=== PATIENT | male | born 1950 | race Caucasian/White ===

== ENCOUNTER → 2016-07-04 | Outpatient (CLI) | payer OTHER ==
[~2016-07-04] MED LIST: ACET325T96 PO; BISA10SU3 PR; CLC100X PO; CLOP1TAB5 PO; DICL1GEL28 TOP; DIVA125C PO; DIVA125C8 PO; GABA-113 PO; HALO100I IM; HALO2TAB PO; HALO5INJ IM; HLD1X PO; HYDR-4330 PO; INSDGIPEN SC; KFL250 PO; LEVE750T PO; LIDO4CRE10 TOP; LIDO5DIS10 TOP; LORA-741 PO; MELO15TA10 PO; MOML PO; NVLGI/PEN SQ; QUET-115 PO; QUET1TAB34 PO; RISP0.5T10 PO; SIMV10TA5 PO; SODIENE PR; VENL150C PO
[2016-07-04 08:23] LABS: BASO % 0.6 %; BASO ABS # 0.04 K/uL (0-0.2); COMPLETE YES; EOS % 2.8 %; HEMATOCRIT 34.9 % (42-52); IG% 0.5 %; LYMPH % 38.9 %; LYMPH ABS # 2.51 K/uL (1.2-3.4); MEAN CELL VOLUME 84.1 fL (80-100); MEAN CORPUSCULAR HEMOGLOBIN 28.2 pg (25-34); MEAN CORPUSCULAR HGB CONC 33.5 g/dl (32-36); MEAN PLATELET VOLUME 9.7 fL (7.4-10.4); MONO % 8.7 %; NEUT % 48.5 %; PLATELET COUNT 250 K/uL (130-400); RED BLOOD COUNT 4.15 M/uL (4.7-6.1); WHITE BLOOD COUNT 6.46 K/uL (4.8-10.8)
[2016-07-04 08:34] LABS: ALT/SGPT 18 U/L (12-78); BLOOD UREA NITROGEN 20 mg/dl (7-18); BUN/CREATININE RATIO 19.9 (10-20); CALCIUM 8.7 mg/dl (8.5-10.1); CARBON DIOXIDE 24 mmol/L (21-32); CHLORIDE 106 mmol/L (98-107); GLUCOSE 159 mg/dl (70-99); POTASSIUM 3.9 mmol/L (3.5-5.1); SODIUM 141 mmol/L (136-145)
[2016-07-04 08:37] LABS: ALKALINE PHOSPHATASE 79 U/L (45-117); AST/SGOT 9 U/L (15-37)
[2016-07-04 09:53] LABS: ESTIMATED AVERAGE GLUCOSE 163 mg/dl; HA1C FLAG Normal (Normal)
== END ==
LOC: C.LABUPHEI 08:00
PROVIDERS: ATTEND Family Medicine
DX: E11.9 Type 2 diabetes mellitus without complications (principal); M62.81 Muscle weakness (generalized)

== ENCOUNTER 2016-07-19 19:12 | Inpatient (IN) | payer OTHER ==
[~2016-07-19] VITALS: Ht 182.9 cm; Wt 78.7 kg
[~2016-07-19 19:12] MED LIST changes: -DIVA125C8 PO; -GABA-113 PO; -INSDGIPEN SC; -KFL250 PO; -LIDO4CRE10 TOP; -NVLGI/PEN SQ; -QUET-115 PO; -RISP0.5T10 PO; +[UNRECOGNIZED DRUG - CODE] PO
[2016-07-19] MEDS ORDERED: SODIUM CHLORIDE 0.9% 1000ML 1,000 ML IV STA ×2 (19:42→20:31)
[2016-07-19] MEDS ORDERED: SODIUM CHLORIDE 0.9% 500ML 500 ML IV STA (19:42)
[2016-07-19 20:02] LABS: HEMATOCRIT 15.9 % (42-52); MEAN CELL VOLUME 88.3 fL (80-100); MEAN CORPUSCULAR HEMOGLOBIN 28.3 pg (25-34); MEAN CORPUSCULAR HGB CONC 32.1 g/dl (32-36); MEAN PLATELET VOLUME 9.9 fL (7.4-10.4); PLATELET COUNT 214 K/uL (130-400); WHITE BLOOD COUNT 17.88 K/uL (4.8-10.8)
--- NOTE | 2016-07-19 20:11 | DIAGNOSTIC IMAGING REPORT ---
CHEST ONE VIEW PORTABLE CLINICAL HISTORY: Altered mental status. COMPARISON STUDY: Chest radiograph April 07, 2015. FINDINGS: Lung volumes are diminished. This is similar to prior exam. Mild left basilar opacity was present on prior exams and suggests atelectasis. There is no consolidation to suggest pneumonia and there is no evidence of pulmonary edema. Cardiomegaly is unchanged. IMPRESSION: 1. No acute findings. 2. Diminished lung volumes with suspected left basilar atelectasis. 3. Stable cardiomegaly. Electronically signed by: Tee Eddy M.D. 07/19/2016 8:09 PM Dictated Date/Time: 07/19/2016 8:06 PM
[2016-07-19 20:23] LABS: BASO % 0.1 %; BASO ABS # 0.02 K/uL (0-0.2); COMPLETE YES; LYMPH % 20.3 %; LYMPH ABS # 3.63 K/uL (1.2-3.4); MONO % 7.4 %; NEUT % 71.2 %; POLYCHROMASIA 2+
[2016-07-19 20:26] LABS: ALB/GLOB RATIO 1.1 (0.9-2); BUN/CREATININE RATIO 45.7 (10-20); CREATININE 2.6 mg/dl (0.60-1.40); POTASSIUM 4.8 mmol/L (3.5-5.1); THYROID STIMULATING HORMONE 1.73 uIu/ml (0.300-4.500)
[2016-07-19] MEDS ORDERED: PIPERACILLIN/TAZOBACTAM 4.5 GM/100ML D5W IV STA (20:32)
[2016-07-19] MEDS ORDERED: DAPTOmycin IV 500 MG in SODIUM CHLORIDE 0.9% 50ML 50 ML IV STA (20:32)
[2016-07-19 20:38] LABS: BETA-HYDROXYBUTYRATE 1.55 mg/dL (0.2-2.81)
[2016-07-19 20:53] LABS: INR 1.1 (0.9-1.1); PARTIAL THROMBOPLASTIN RATIO 0.7
[2016-07-19] MEDS ORDERED: SEVERE STRESS LEVEL ONE (21:00)
[2016-07-19] MEDS ORDERED: INSULIN IV INFUSION PROTOCOL STA (21:00)
[2016-07-19] MEDS ORDERED: INSULIN ASPART 100 UNITS/ML 3 ML PEN SC SCH (21:00)
[2016-07-19] MEDS ORDERED: HHS GOAL RANGE 250-350 mg/dl ONE (21:00)
[2016-07-19] MEDS ORDERED: INSULIN REGULAR 250 UNITS in SODIUM CHLORIDE 0.9% 250ML 250 ML IV STA (21:21)
[2016-07-19] MEDS ORDERED: INSULIN HUMAN REGULAR IV BOLUS 3 UNIT in SYRINGE 0 ML IV SCH (21:30)
[2016-07-19] MEDS ORDERED: GLUCOSE 40% GEL 15 GM TUBE PO PRN (21:30)
[2016-07-19] MEDS ORDERED: GLUCOSE 10 TABS/TUBE PO PRN (21:30)
[2016-07-19] MEDS ORDERED: GLUCAGON FOR INJ 1 MG VIAL SQ PRN (21:30)
[2016-07-19] MEDS ORDERED: DEXTROSE 50% 50 ML SYR IV PRN (21:30)
[2016-07-19 22:10] VITALS: BP 121/77; PULSE 103; TEMP 36.7; O2SAT 100
[2016-07-19 22:15] VITALS: BP 126/76; PULSE 103; O2SAT 100
[2016-07-19 22:20] LABS: URINE APPEARANCE CLEAR (CLEAR); URINE BILIRUBIN NEG (NEG); URINE COLOR YELLOW; URINE EPITHELIAL CELL AUTO >30 /lpf (0-5); URINE NITRITE NEG (NEG); URINE SPECIFIC GRAVITY 1.017 (1.000-1.030); UROBILINOGEN NEG (NEG); ZZUR CULT IF INDIC CLEAN CATCH YES
[2016-07-19 22:24] LABS: MANUAL MICROSCOPIC REQUIRED? NO; REVIEW REQ? YES
[2016-07-19 22:25] VITALS: BP 116/68; PULSE 97; TEMP 36.7; O2SAT 100
[2016-07-19] MEDS ORDERED: RISP0.5T10 PO (22:43)
[2016-07-19] MEDS ORDERED: GABA-113 PO (22:43)
[2016-07-19] MEDS ORDERED: LIDO4CRE10 TOP (22:43)
[2016-07-19] MEDS ORDERED: INSDGIPEN SC (22:43)
[2016-07-19 22:45] VITALS: BP 119/90; PULSE 98; TEMP 36.9; O2SAT 100
[2016-07-19] MEDS ORDERED: NVLGI/PEN SQ (22:47)
[2016-07-19 22:49] LABS: BENZODIAZEPINE, URINE NEG (NEG); COCAINE,URINE NEG (NEG); PHENCYCLIDINE, URINE NEG (NEG)
[2016-07-19] MEDS ORDERED: ONDANSETRON INJ 2 MG/ML 2 ML VIAL IV PRN (23:15)
--- NOTE | 2016-07-19 23:19 | History and Physical ---
History & Physical Date & Time of Service: Jul 19, 2016 at 23:17 Chief Complaint: [facility] Primary Care Physician: Dillan Samuels History of Present Illness Source: patient Mr Errol Hinojosa is a 65 yo M with multiple chronic conditions, including schizoaffective disorder, depression, GERD, coronary artery disease, and previous stroke, who presents from the [facility] with altered mental status. He was found to have a blood sugar of 565 today at 1807. He was also found to by hypoxic at 87% on room air, and his blood pressure was found to be in the 70s. His sugar improved to 443 after 15 units of Novolog. He was brought to the ED for further evaluation. In the ED, he received a fluid bolus of 1500mL total, and a dose of Zosyn and Daptomycin. He was started on an insulin drip, and his most recent sugar is 344 at 23:28. He was found to have a hemoglobin of 5.1 and has been started on a unit of blood transfusion. He has a POLST form in records that says he is a DNR, with limited additional measures. His POA is Marcie Mclean who apparently was a nurse that used to take care of him, not a family member, and the patients brother was a previous POA but an issue arose, and Marcie became the POA. She was contacted by nursing staff earlier for consent for blood transfusion but reported she does not know much about his recent history. Currently, his eyes open when his name is called and he will grunt occasionally. He is otherwise non-verbal. Past Medical/Surgical History Medical Problems: (1) Coronary artery disease Status: Chronic (2) Depression Status: Chronic (3) Diabetes Status: Chronic (4) GERD (gastroesophageal reflux disease) Status: Chronic (5) Gout Status: Chronic (6) Hyperlipidemia Status: Chronic (7) Schizoaffective disorder, chronic condition Status: Chronic (8) Stroke Status: Resolved Family History Patient reports no known family medical history. Social History Smoking Status: Unknown if Ever Smoked Drug Use: none Marital Status: Housing status: intermediate Occupational Status: retired Allergies Coded Allergies: No Known Allergies (Unverified , 07/19/16) Home Medications Scheduled Acetaminophen Tab (Tylenol), 650 MG PO Q8 Clopidogrel Bisulfate (Plavix), 75 MG PO DAILY Diclofenac Sod (Voltaren 1% Top Gel), 2 GM TOP TID Divalproex Sodium (Depakote Sprinkles), 125 MG PO TID Docusate Sodium (Docusate Sodium), 100 MG PO BID Gabapentin (Neurontin), 300 MG PO HS Haloperidol Decanoate (Haldol Decanoate 100), 25 MG IM MONTHLY Insulin Aspart (Novolog Flexpen), 1 DOSE SQ SLIDING SCALE Insulin Glargine (Lantus Solostar), 10 UNITS SC HS Levetiracetam (Keppra), 750 MG PO BID Lidocaine (Anorectal) (Lidocaine), 1 DOSE TOP DAILY Meloxicam (Mobic), 15 MG PO DAILY Quetiapine Fumarate (Seroquel), 150 MG PO TID Risperidone (Risperdal), 0.5 MG PO Q12 Simvastatin (Zocor), 10 MG PO HS Venlafaxine Hcl (Effexor Xr), 150 MG PO DAILY Scheduled PRN Bisacodyl (Dulcolax), 1 SUPP RI UD PRN for NO BM X 4 DAYS Haloperidol (Haloperidol), 2 MG PO Q6 PRN for YELLING,COMBATIVE,ETC Haloperidol Lactate (Haldol), 2 MG IM Q12 PRN for Agitation Hydrocodone-Acetaminophen (Lortab 5-325 mg), 1 TAB PO Q8 PRN for Pain Magnesium Hydroxide (Milk Of Magnesia), 30 ML PO UD PRN for NO BM X 9 SHIFTS Sodium Phosphate/Biphosphate (Fleet Enema), 1 EA RI UD PRN for NO RESULT FROM SUPPOSITORY Review of Systems A 10 point ROS was unable to be completed due to patients mental status. Physical Exam Vital Signs Date Time Temp Pulse Resp B/P Pulse Ox O2 Delivery O2 Flow Rate FiO2 07/19/16 22:45 36.9 98 20 119/90 100 3.0 07/19/16 22:35 96 07/19/16 22:25 36.7 97 21 116/68 100 3.0 07/19/16 22:15 103 22 126/76 100 3.0 07/19/16 22:10 36.7 103 28 121/77 100 3.0 07/19/16 21:30 95 22 121/75 07/19/16 20:30 100 20 105/74 97 Nasal Cannula 3.0 07/19/16 20:00 37.3 103 20 107/70 99 Nasal Cannula 3.0 07/19/16 19:45 103 20 96/67 100 Nasal Cannula 4.0 07/19/16 19:30 100 Nasal Cannula 4.0 07/19/16 19:30 103 20 113/69 Nasal Cannula 4.0 07/19/16 19:27 107 07/19/16 19:18 Nasal Cannula 07/19/16 19:17 36.9 105 16 114/73 92 Nasal Cannula 2.0 General Appearance: WD/WN, + mild distress, + thin Head: normocephalic, atraumatic Eyes: PERRL, + pertinent finding ENT: hearing grossly normal Neck: no JVD Respiratory/Chest: lungs clear, normal breath sounds Cardiovascular: regular rate, rhythm, no murmur Abdomen/GI: non tender, soft Extremities/Musculoskelatal: no pedal edema Neurologic/Psych: + disoriented Diagnostics Laboratory Results Results Past 24 Hours Test 07/19/16 19:16 07/19/16 19:22 07/19/16 20:00 07/19/16 20:23 Range/Units Bedside Glucose 443 70-99 mg/dl White Blood Count 17.88 4.8-10.8 K/uL Red Blood Count 1.80 4.7-6.1 M/uL Hemoglobin 5.1 14.0-18.0 g/dL Hematocrit 15.9 42-52 % Mean Corpuscular Volume 88.3 80-100 fL Mean Corpuscular Hemoglobin 28.3 25-34 pg Mean Corpuscular Hemoglobin Concent 32.1 32-36 g/dl Platelet Count 214 130-400 K/uL Mean Platelet Volume 9.9 7.4-10.4 fL Neutrophils (%) (Auto) 71.2 % Lymphocytes (%) (Auto) 20.3 % Monocytes (%) (Auto) 7.4 % Eosinophils (%) (Auto) 0.0 % Basophils (%) (Auto) 0.1 % Neutrophils # (Auto) 12.74 1.4-6.5 K/uL Lymphocytes # (Auto) 3.63 1.2-3.4 K/uL Monocytes # (Auto) 1.32 0.11-0.59 K/uL Eosinophils # (Auto) 0.00 0-0.5 K/uL Basophils # (Auto) 0.02 0-0.2 K/uL RDW Standard Deviation 47.6 36.4-46.3 fL RDW Coefficient of Variation 16.1 11.5-14.5 % Immature Granulocyte % (Auto) 1.0 % Immature Granulocyte # (Auto) 0.17 0.00-0.02 K/uL Nucleated RBC Absolute Count (auto) 0.48 0-0 K/uL Nucleated Red Blood Cells % 2.7 % Polychromasia 2+ Sodium Level 150 136-145 mmol/L Potassium Level 4.8 3.5-5.1 mmol/L Chloride Level 115 98-107 mmol/L Carbon Dioxide Level 22 21-32 mmol/L Anion Gap 13.0 3-11 mmol/L Blood Urea Nitrogen 119 7-18 mg/dl Creatinine 2.60 0.60-1.40 mg/dl Est Creatinine Clear Calc Drug Dose 30.3 ml/min Estimated GFR () 28.3 Estimated GFR (Non- 24.4 BUN/Creatinine Ratio 45.7 10-20 Random Glucose 427 70-99 mg/dl Calcium Level 8.0 8.5-10.1 mg/dl Magnesium Level 3.0 1.8-2.4 mg/dl Total Bilirubin 0.2 0.2-1 mg/dl Aspartate Amino Transf (AST/SGOT) 6 15-37 U/L Alanine Aminotransferase (ALT/SGPT) 15 12-78 U/L Alkaline Phosphatase 50 45-117 U/L Troponin I 0.027 0-0.045 ng/ml Total Protein 5.6 6.4-8.2 gm/dl Albumin 2.9 3.4-5.0 gm/dl Globulin 2.7 2.5-4.0 gm/dl Albumin/Globulin Ratio 1.1 0.9-2 Beta-Hydroxybutyric Acid 1.55 0.2-2.81 mg/dL Thyroid Stimulating Hormone (TSH) 1.730 0.300-4.500 uIu/ml Influenza Type A Antigen Neg for Influ A NEG Influenza Type B Antigen Neg for Influ B NEG Prothrombin Time 12.0 9.0-12.0 SECONDS Prothromb Time International Ratio 1.1 0.9-1.1 Activated Partial Thromboplast Time 17.6 21.0-31.0 SECONDS Partial Thromboplastin Ratio 0.7 Test 07/19/16 20:26 07/19/16 20:55 07/19/16 21:07 07/19/16 22:32 Range/Units Bedside Lactic Acid Venous 4.25 0.90-1.70 mmol/L Urine Color YELLOW Urine Appearance CLEAR CLEAR Urine pH 5.0 4.5-7.5 Urine Specific [facility] 1.017 1.000-1.030 Urine Protein NEG NEG Urine Glucose (UA) 2+ NEG Urine Ketones NEG NEG Urine Occult Blood NEG NEG Urine Nitrite NEG NEG Urine Bilirubin NEG NEG Urine Urobilinogen NEG NEG Urine Leukocyte Esterase SMALL NEG Urine WBC (Auto) 5-10 0-5 /hpf Urine RBC (Auto) 0-4 0-4 /hpf Urine Hyaline Casts (Auto) 1-5 0-5 /lpf Urine Epithelial Cells (Auto) >30 0-5 /lpf Urine Bacteria (Auto) 1+ NEG Urine Renal Epithelial Cells 0-5 0-5 /lpf Urine Opiates Screen POS NEG Urine Methadone, Qualitative NEG NEG Urine Barbiturates NEG NEG Urine Phencyclidine (PCP) Level NEG NEG Ur Amphetamine/Methamphetamine NEG NEG MDMA (Ecstasy) Screen NEG NEG Urine Benzodiazepines Screen NEG NEG Urine Cocaine Metabolite NEG NEG Urine Marijuana (THC) NEG NEG Bedside Glucose 406 344 70-99 mg/dl Microbiology Results 07/19/16 Blood Culture, Received Pending 07/19/16 Blood Culture, Received Pending 07/19/16 Urine Culture, Received Pending Diagnostic Radiology CHEST ONE VIEW PORTABLE CLINICAL HISTORY: Altered mental status. COMPARISON STUDY: Chest radiograph April 07, 2015. FINDINGS: Lung volumes are diminished. This is similar to prior exam. Mild left basilar opacity was present on prior exams and suggests atelectasis. There is no consolidation to suggest pneumonia and there is no evidence of pulmonary edema. Cardiomegaly is unchanged. IMPRESSION: 1. No acute findings. 2. Diminished lung volumes with suspected left basilar atelectasis. 3. Stable cardiomegaly. Normal EKG (QTc 449) Impression Assessment and Plan Documented By: Cordell Rodriguez 65 yo M with altered mental status, with hyperglycemia, anemia, renal insufficiency, leukocytosis as active issues. Acute normocytic anemia - Transfuse 3 units overnight - Recheck CBC in AM Hyperglycemia - Continue insulin drip Renal insufficiency - Continue to monitor - BMP in AM Leukocytosis - Will switch to Rocephin at next dose (8am) Schizoaffective disorder - Will hold PO home meds: Keppra, Ativan, Seroquel, Effexor, Gabapentin - Receives monthly haloperidol decanoate, will hold daily haloperidol for now Coronary artery disease - Hold aspirin, plavix for now Admit to Telemetry SCDs DO NOT RESUSCITATE / DO NOT INTUBATE *REFER TO POL FOR FURTHER DETAILS* Discussed with POA at time of admission Resident Physician Supervision Note: I was present with [Name of resident] during the history and exam. I discussed the case with the resident and agree with the findings and plan as documented in the note. Any exceptions or clarifications are listed here: Pt seen examined - - he is lethargic but in no distress - he cannot provide any pertinent information ora reliable ROS due to underlying dementia Pt was treated with broad spectrum antibiotics in the ER however we have no clear source of or clear evidence of infection at present. UA is equivocal. He has melanotic stool, a Hb of 5.0 and evidence of dehydration with an hypernatremia His blood Glu was over 500 initially It is possible that he has leukocytosis and lethargy owing to hyperglycemia, dehydration and a GI bleed P: We will cont Abx pending culture results Provide IVF and transfuse 3 units PRBCs Insulin GTT - convert to SS when possible Level of Care Telemetry VTE Prophylaxis VTE Risk Assessment Done? Y/N: Yes Risk Level: Moderate Given or contraindicated: Contraindicated Resident Tracking Resident Involvement: Resident Care Provided Care Provided: Adult Hospital Medicine
[2016-07-19 23:30] VITALS: BP 113/75; TEMP 36.6; O2SAT 97; BMI 24.3
[2016-07-19 23:50] VITALS: BP 113/75; PULSE 92; TEMP 36.6; O2SAT 97
[2016-07-20] VITALS (14 sets, daily range): BP systolic 102–132; BP diastolic 54–82; PULSE 72–98; TEMP 36.4–37.3; O2SAT 96–100; Ht 182.9 cm; Wt 78.7 kg
[2016-07-20] MEDS ORDERED: SODIUM CHLOR 0.45% + 20MEQ KCL 1,000 ML IV SCH (00:15)
[2016-07-20] MEDS ORDERED: GLUCAGON FOR INJ 1 MG VIAL SQ PRN (00:30)
[2016-07-20] MEDS ORDERED: DEXTROSE 50% 50 ML SYR IV PRN (00:30)
[2016-07-20] MEDS ORDERED: PHARMACY GLYCEMIC MGMT CONSULT PRN (00:30)
[2016-07-20] MEDS ORDERED: GLUCOSE 40% GEL 15 GM TUBE PO PRN (00:30)
[2016-07-20] MEDS ORDERED: GLUCOSE 10 TABS/TUBE PO PRN (00:30)
[2016-07-20] MEDS ORDERED: PENDING D5 1/2NS+20mEq KCL IVF SCH (02:00)
--- NOTE | 2016-07-20 02:39 | EMERGENCY ROOM VISIT NOTE ---
History Report prepared by Nuria: Dariel Nelson Under the Supervision of: Dr. Chito Gonzalez M.D. First contact with patient: 19:41 Chief Complaint: ALTERED MENTAL STATUS Stated Complaint: HI BSG Nursing Triage Summary: Patient is from the [facility]. Nurse noted altered mental status tonight. Patient's blood sugars have been elevated today, last 1807 - 565 and patient was covered with 15 units Novolog. EMS also report 87% SPO2 on room air, and last BP of 78/50. On arrival to ER, patient responds minimally to verbal stimuli, 1 L NSS bolus in from EMS BP 114/73. History of Present Illness The patient is a 65 year old male who presents to the Emergency Room with complaints of altered mental status occurring prior to arrival. Per the Nursing staff, the patient was at [facility], and his blood sugars were high. Per the nurses, at 1807 his sugars were at 565. They additionally state that the patient was then given 15 units of NovoLog. The nurses additionally state that the patient had a blood pressure in the 70s and his oxygen saturation was 87%. The nursing staff state that the patient's blood sugar was 443 at 1913. The patient denies any headache or chest pain. The patient's history was limited due to altered mental status. Source of History: patient, nursing staff History Limited By: AMS Onset: prior to arrival Position: other (global) Quality: other (altered mental status) Review of Systems HPI was limited due to altered mental status. Past Medical & Surgical Medical Problems: (1) Altered mental state (2) Anemia (3) Coronary artery disease (4) Depression (5) Diabetes (6) GERD (gastroesophageal reflux disease) (7) Gout (8) Hyperglycemia (9) Hyperlipidemia (10) Schizoaffective disorder, chronic condition (11) Stroke Family History Patient reports no known family medical history. Social History Smoking Status: Unknown if Ever Smoked Alcohol Use: none Drug Use: none Marital Status: Housing Status: fpc Occupation Status: retired Current/Historical Medications Scheduled Acetaminophen Tab (Tylenol), 650 MG PO Q8 Clopidogrel Bisulfate (Plavix), 75 MG PO DAILY Diclofenac Sod (Voltaren 1% Top Gel), 2 GM TOP TID Divalproex Sodium (Depakote Sprinkles), 125 MG PO TID Docusate Sodium (Docusate Sodium), 100 MG PO BID Gabapentin (Neurontin), 300 MG PO HS Haloperidol Decanoate (Haldol Decanoate 100), 25 MG IM MONTHLY Insulin Aspart (Novolog Flexpen), 1 DOSE SQ SLIDING SCALE Insulin Glargine (Lantus Solostar), 10 UNITS SC HS Levetiracetam (Keppra), 750 MG PO BID Lidocaine (Anorectal) (Lidocaine), 1 DOSE TOP DAILY Meloxicam (Mobic), 15 MG PO DAILY Quetiapine Fumarate (Seroquel), 150 MG PO TID Risperidone (Risperdal), 0.5 MG PO Q12 Simvastatin (Zocor), 10 MG PO HS Venlafaxine Hcl (Effexor Xr), 150 MG PO DAILY Scheduled PRN Bisacodyl (Dulcolax), [address] UD PRN for NO BM X 4 DAYS Haloperidol (Haloperidol), 2 MG PO Q6 PRN for YELLING,COMBATIVE,ETC Haloperidol Lactate (Haldol), 2 MG IM Q12 PRN for Agitation Hydrocodone-Acetaminophen (Lortab 5-325 mg), 1 TAB PO Q8 PRN for Pain Magnesium Hydroxide (Milk Of Magnesia), 30 ML PO UD PRN for NO BM X 9 SHIFTS Sodium Phosphate/Biphosphate (Fleet Enema), [address] UD PRN for NO RESULT FROM SUPPOSITORY Allergies Coded Allergies: No Known Allergies (Unverified , 07/19/16) Physical Exam Vital Signs Date Time Temp Pulse Resp B/P Pulse Ox O2 Delivery O2 Flow Rate FiO2 07/19/16 22:45 36.9 98 20 119/90 100 3.0 07/19/16 22:35 96 07/19/16 22:25 36.7 97 21 116/68 100 3.0 07/19/16 22:15 103 22 126/76 100 3.0 07/19/16 22:10 36.7 103 28 121/77 100 3.0 07/19/16 21:30 95 22 121/75 07/19/16 20:30 100 20 105/74 97 Nasal Cannula 3.0 07/19/16 20:00 37.3 103 20 107/70 99 Nasal Cannula 3.0 07/19/16 19:45 103 20 96/67 100 Nasal Cannula 4.0 07/19/16 19:30 100 Nasal Cannula 4.0 07/19/16 19:30 103 20 113/69 Nasal Cannula 4.0 07/19/16 19:27 107 07/19/16 19:18 Nasal Cannula 07/19/16 19:17 36.9 105 16 114/73 92 Nasal Cannula 2.0 Physical Exam GENERAL: Lethargic, mildly diaphoretic appearing, in no distress HENT: Normocephalic, atraumatic. Oropharynx unremarkable. EYES: Normal conjunctiva. Sclera non-icteric. NECK: Supple. No nuchal rigidity. FROM. No JVD. RESPIRATORY: Clear to auscultation. CARDIAC: Borderline tachycardic rate, normal rhythm. Extremities warm and well perfused. Pulses equal. ABDOMEN: Soft, non-distended. No tenderness to palpation. No rebound or guarding. No masses. RECTAL: Melanotic stool. Heme positive. MUSCULOSKELETAL: Chest examination reveals no tenderness. There is no CVA tenderness to palpation. No joint edema. LOWER EXTREMITIES: Trace lower extremity edema. Calves are equal size bilaterally and non-tender. No discoloration. NEURO: Normal sensorium. No sensory or motor deficits noted. SKIN: No rash or jaundice noted. Medical Decision & Procedures ER Provider Diagnostic Interpretation: X-ray: Per my interpretation, radiologist review. CHEST ONE VIEW PORTABLE CLINICAL HISTORY: Altered mental status. COMPARISON STUDY: Chest radiograph April 07, 2015. FINDINGS: Lung volumes are diminished. This is similar to prior exam. Mild left basilar opacity was present on prior exams and suggests atelectasis. There is no consolidation to suggest pneumonia and there is no evidence of pulmonary edema. Cardiomegaly is unchanged. IMPRESSION: 1. No acute findings. 2. Diminished lung volumes with suspected left basilar atelectasis. 3. Stable cardiomegaly. Electronically signed by: Tee Eddy M.D. 07/19/2016 8:09 PM Dictated Date/Time: 07/19/2016 8:06 PM Laboratory Results 07/19/16 19:22 Red Blood Count 1.80, Mean Corpuscular Volume 88.3, Mean Corpuscular Hemoglobin 28.3, Mean Corpuscular Hemoglobin Concent 32.1, Mean Platelet Volume 9.9, Neutrophils (%) (Auto) 71.2, Lymphocytes (%) (Auto) 20.3, Monocytes (%) (Auto) 7.4, Eosinophils (%) (Auto) 0.0, Basophils (%) (Auto) 0.1, Neutrophils # (Auto) 12.74, Lymphocytes # (Auto) 3.63, Monocytes # (Auto) 1.32, Eosinophils # (Auto) 0.00, Basophils # (Auto) 0.02 07/19/16 19:22 Test 07/19/16 19:22 07/19/16 20:00 07/19/16 20:23 07/19/16 20:26 White Blood Count 17.88 K/uL (4.8-10.8) Red Blood Count 1.80 M/uL (4.7-6.1) Hemoglobin 5.1 g/dL (14.0-18.0) Hematocrit 15.9 % (42-52) Mean Corpuscular Volume 88.3 fL (80-100) Mean Corpuscular Hemoglobin 28.3 pg (25-34) Mean Corpuscular Hemoglobin Concent 32.1 g/dl (32-36) Platelet Count 214 K/uL (130-400) Mean Platelet Volume 9.9 fL (7.4-10.4) Neutrophils (%) (Auto) 71.2 % Lymphocytes (%) (Auto) 20.3 % Monocytes (%) (Auto) 7.4 % Eosinophils (%) (Auto) 0.0 % Basophils (%) (Auto) 0.1 % Neutrophils # (Auto) 12.74 K/uL (1.4-6.5) Lymphocytes # (Auto) 3.63 K/uL (1.2-3.4) Monocytes # (Auto) 1.32 K/uL (0.11-0.59) Eosinophils # (Auto) 0.00 K/uL (0-0.5) Basophils # (Auto) 0.02 K/uL (0-0.2) RDW Standard Deviation 47.6 fL (36.4-46.3) RDW Coefficient of Variation 16.1 % (11.5-14.5) Immature Granulocyte % (Auto) 1.0 % Immature Granulocyte # (Auto) 0.17 K/uL (0.00-0.02) Nucleated RBC Absolute Count (auto) 0.48 K/uL (0-0) Nucleated Red Blood Cells % 2.7 % Polychromasia 2+ Anion Gap 13.0 mmol/L (3-11) Est Creatinine Clear Calc Drug Dose 30.3 ml/min Estimated GFR () 28.3 Estimated GFR (Non- 24.4 BUN/Creatinine Ratio 45.7 (10-20) Calcium Level 8.0 mg/dl (8.5-10.1) Magnesium Level 3.0 mg/dl (1.8-2.4) Total Bilirubin 0.2 mg/dl (0.2-1) Aspartate Amino Transf (AST/SGOT) 6 U/L (15-37) Alanine Aminotransferase (ALT/SGPT) 15 U/L (12-78) Alkaline Phosphatase 50 U/L (45-117) Troponin I 0.027 ng/ml (0-0.045) Total Protein 5.6 gm/dl (6.4-8.2) Albumin 2.9 gm/dl (3.4-5.0) Globulin 2.7 gm/dl (2.5-4.0) Albumin/Globulin Ratio 1.1 (0.9-2) Beta-Hydroxybutyric Acid 1.55 mg/dL (0.2-2.81) Thyroid Stimulating Hormone (TSH) 1.730 uIu/ml (0.300-4.500) Influenza Type A Antigen Neg for Influ A (NEG) Influenza Type B Antigen Neg for Influ B (NEG) Prothrombin Time 12.0 SECONDS (9.0-12.0) Prothromb Time International Ratio 1.1 (0.9-1.1) Activated Partial Thromboplast Time 17.6 SECONDS (21.0-31.0) Partial Thromboplastin Ratio 0.7 Bedside Lactic Acid Venous 4.25 mmol/L (0.90-1.70) Test 07/19/16 20:55 Urine Color YELLOW Urine Appearance CLEAR (CLEAR) Urine pH 5.0 (4.5-7.5) Urine Specific [place] 1.017 (1.000-1.030) Urine Protein NEG (NEG) Urine Glucose (UA) 2+ (NEG) Urine Ketones NEG (NEG) Urine Occult Blood NEG (NEG) Urine Nitrite NEG (NEG) Urine Bilirubin NEG (NEG) Urine Urobilinogen NEG (NEG) Urine Leukocyte Esterase SMALL (NEG) Urine WBC (Auto) 5-10 /hpf (0-5) Urine RBC (Auto) 0-4 /hpf (0-4) Urine Hyaline Casts (Auto) 1-5 /lpf (0-5) Urine Epithelial Cells (Auto) >30 /lpf (0-5) Urine Bacteria (Auto) 1+ (NEG) Urine Renal Epithelial Cells 0-5 /lpf (0-5) Urine Opiates Screen POS (NEG) Urine Methadone, Qualitative NEG (NEG) Urine Barbiturates NEG (NEG) Urine Phencyclidine (PCP) Level NEG (NEG) Ur Amphetamine/Methamphetamine NEG (NEG) MDMA (Ecstasy) Screen NEG (NEG) Urine Benzodiazepines Screen NEG (NEG) Urine Cocaine Metabolite NEG (NEG) Urine Marijuana (THC) NEG (NEG) Laboratory results reviewed by me Medications Administered Medications (Trade) Dose Ordered Sig/Angel Route Start Time Stop Time Status Last Admin Dose Admin Sodium Chloride 1,000 ml @ 125 mls/hr Q8H STAT IV 07/19/16 19:42 07/19/16 23:52 DC 07/19/16 22:40 125 MLS/HR Sodium Chloride 500 ml @ 999 mls/hr Q31M STAT IV 07/19/16 19:42 07/19/16 20:12 DC 07/19/16 19:59 999 MLS/HR Sodium Chloride 1,000 ml @ 999 mls/hr Q1H1M STAT IV 07/19/16 20:31 07/19/16 21:31 DC 07/19/16 21:39 999 MLS/HR Daptomycin/Sodium Chloride (Cubicin IV/Nss 50ml) 60 ml @ 100 mls/hr NOW STAT IV 07/19/16 20:32 07/19/16 21:07 DC 07/19/16 21:35 100 MLS/HR Piperacillin Sod/ Tazobactam Sod 4.5 gm 4.5 gm NOW STAT IV 07/19/16 20:32 07/19/16 20:33 DC 07/19/16 20:49 4.5 GM Insulin Human Regular 3 unit/ Syringe 3 ml @ 1 mls/min TODAY@2130 IV 07/19/16 21:30 07/19/16 21:32 DC 07/19/16 21:34 1 MLS/MIN Insulin Human Regular/Sodium Chloride (novoLIN-R/Nss 250ml) 252.5 ml @ 0 mls/hr ONE STAT IV 07/19/16 21:21 07/19/16 21:22 DC 07/19/16 21:35 3 MLS/HR ECG Indication: altered mental status Rate (beats per minute): 104 Rhythm: normal sinus Findings: no acute ischemic change, no ectopy ED Course 1940: The patient was evaluated in room B1. A complete history and physical exam was performed. 1941: Sodium Chloride 500 ml @ 999 mls/hr IV, Sodium Chloride 1000 ml @ 125 mls/ hr IV 2030: Sodium Chloride 1000 ml @ 999 mls/hr IV 2031: Zosyn 4.5gm IV, Daptomycin 500mg/ Sodium Chloride 60 ml @ 100 mls/hr IV 2120: Insulin Human Regular 250 units/ Sodium Chloride 252.5ml @ 0 mls/hr 2129: Glucagon 1mg SQ, Dextrose 50% 50ML Syringe 50ml IV, Glucose 1 Tab, Glucose 40% Gel PO, Insulin Human Regular 3 unit/ Syringe 2235: I discussed the patient's case with Dr. Rodriguez. He is going to evaluate the patient for further treatment Medical Decision Triage Nursing notes reviewed. The patient's presentation and history were concerning for altered mental status. Etiologies such as metabolic, infection, hypo/hyperglycemia, electrolyte abnormalities, cardiac sources, intracerebral event, toxicologic, neurologic, as well as others were entertained. The patient was evaluated. He had mild hypoxia reported by EMS. He also had hyperglycemia. He was altered. He wouldn't arouse for verbal stimuli. The patient had an IV established. He was given a liter prehospital and additional IV fluids were given in the Emergency Room. He had an additional 1.5 L given and fluids were then administered as a maintenance. The patient had significant leukocytosis on CBC of 17,000. He had a severe anemia with a hemoglobin of 5. Rectal examination revealed melanotic stool was heme positive. Chemistry panel revealed hyperglycemia but no sign of DKA. Urinalysis was concerning for possible infection by catheter specimen. Chest x- ray was negative. Chemistry panel also revealed the patient had acute kidney injury. Lactate was elevated over 4. The patient was given empiric antibiotics of Zosyn and daptomycin. After hydration the patient was doing better. Mental status improved. He denied any headache, chest pain, or abdominal pain. The patient's power of energy attorney was contacted for blood transfusion consent and this was given. The patient was transfused 2 units of packed red blood cells. Further evaluation and management will be necessary in the hospital. Consultation was made with internal medicine. The patient was evaluated for further treatment. The chart was completed utilizing [employer] voice recognition software. Grammatical errors, random word insertions, pronoun errors, and incomplete sentences are an occasional consequence of this system due to software limitations, ambient noise, and hardware issues. Any formal questions or concerns about the content, text, or information contained within the body of this dictation should be directly addressed to the physician for clarification. Consults Time Called: 2226 Consulting Physician: Dr. Rodriguez Returned Call: 2235 I discussed the patient's case with Dr. Rodriguez. He is going to evaluate the patient for further treatment Impression Primary Impression: Sepsis Additional Impressions: GI bleed Acute renal failure UTI (urinary tract infection) Critical Care I have personally spent greater than 75 minutes of critical care time in the direct management of this patient. This includes bedside care, interpretation of diagnostic studies, and testing, discussion with consultants, patient, and other required patient management activities. This 75 minutes is in excess of all separately billable procedures. Scribe Attestation The scribe's documentation has been prepared under my direction and personally reviewed by me in its entirety. I confirm that the note above accurately reflects all work, treatment, procedures, and medical decision making performed by me. Departure Information Dispostion Being Evaluated By Hospitalist Dillan Wise (PCP) Problem Qualifiers Primary Impression: Sepsis Sepsis type: sepsis due to unspecified organism Qualified Codes: A41.9 - Sepsis, unspecified organism Additional Impressions: GI bleed GI bleed type/associated pathology: unspecified gastrointestinal hemorrhage type Qualified Codes: K92.2 - Gastrointestinal hemorrhage, unspecified
[2016-07-20] MEDS ORDERED: INSULIN IV INFUSION PROTOCOL STA (02:57)
[2016-07-20] MEDS ORDERED: SEVERE STRESS LEVEL ONE (03:00)
[2016-07-20] MEDS ORDERED: DKA GOAL RANGE 150-250 mg/dl 1 EA ONE (03:00)
[2016-07-20 04:57] LABS: BUN/CREATININE RATIO 44.1 (10-20); CALCIUM 7.7 mg/dl (8.5-10.1); CREATININE 2.2 mg/dl (0.60-1.40); MAGNESIUM 2.9 mg/dl (1.8-2.4); PHOSPHORUS 4.3 mg/dl (2.5-4.9); POTASSIUM 4.2 mmol/L (3.5-5.1)
[2016-07-20] MEDS: D5W AND 1/2NSS + 20MEQ KCL 1000 ML IV SCH ×2 (05:27→11:56)
[2016-07-20] MEDS: LORAZEPAM 2 MG/ML 1 ML VIAL IV PRN ×4 (07:33→20:54)
[2016-07-20] MEDS: INSULIN ASPART 100 UNITS/ML 3 ML PEN SC SCH ×4 (07:44→20:54)
[2016-07-20] MEDS ORDERED: CEFTRIAXONE SOD INJ 2,000 MG in DEXTROSE 5% 50ML 50 ML IV SCH (08:00)
--- NOTE | 2016-07-20 10:10 | Pharmacy Progress Note ---
Glycemic Control Intl Consult Date of Service Jul 20, 2016. Scope Glycemic Pharmacist consulted by Dr Link on 07/20/16 for glycemic control and to write orders per [facility] inpatient glycemic control protocol, patient now transferred to Dr Harrington's service. Objective Weight (Kilograms): 80.600 Accuchecks BSG (last 24hrs): Test 07/19/16 19:16 07/19/16 19:22 07/19/16 21:07 07/19/16 22:32 Bedside Glucose 443 mg/dl (70-99) 406 mg/dl (70-99) 344 mg/dl (70-99) Random Glucose 427 mg/dl (70-99) Test 07/19/16 23:47 07/20/16 00:51 07/20/16 01:44 07/20/16 02:44 Bedside Glucose 314 mg/dl (70-99) 275 mg/dl (70-99) 242 mg/dl (70-99) 198 mg/dl (70-99) Test 07/20/16 03:50 07/20/16 04:25 07/20/16 04:49 07/20/16 06:48 Bedside Glucose 180 mg/dl (70-99) 169 mg/dl (70-99) 191 mg/dl (70-99) Random Glucose 171 mg/dl (70-99) Test 07/20/16 08:44 07/20/16 09:48 07/20/16 09:50 Bedside Glucose 214 mg/dl (70-99) 203 mg/dl (70-99) Laboratory Data (last 24hrs) Test 07/19/16 19:22 07/20/16 04:25 07/20/16 09:50 Anion Gap 13.0 mmol/L 9.0 mmol/L BUN/Creatinine Ratio 45.7 44.1 Blood Urea Nitrogen 119 mg/dl 97 mg/dl Creatinine 2.60 mg/dl 2.20 mg/dl Potassium Level 4.8 mmol/L 4.2 mmol/L Sodium Level 150 mmol/L 155 mmol/L White Blood Count 17.88 K/uL Red Blood Count 1.80 M/uL Hemoglobin 5.1 g/dL Hematocrit 15.9 % Mean Corpuscular Volume 88.3 fL Mean Corpuscular Hemoglobin 28.3 pg Mean Corpuscular Hemoglobin Concent 32.1 g/dl Platelet Count 214 K/uL Mean Platelet Volume 9.9 fL Neutrophils (%) (Auto) 71.2 % Lymphocytes (%) (Auto) 20.3 % Monocytes (%) (Auto) 7.4 % Eosinophils (%) (Auto) 0.0 % Basophils (%) (Auto) 0.1 % Neutrophils # (Auto) 12.74 K/uL Lymphocytes # (Auto) 3.63 K/uL Monocytes # (Auto) 1.32 K/uL Eosinophils # (Auto) 0.00 K/uL Basophils # (Auto) 0.02 K/uL Recent Pertinent Medications Outpatient Anti-diabetic Regimen: * Lantus 10 units HS; Novolog SS * A1c = 7.3 % 07/04/16 The patient is currently receiving: * IV insulin infusion per severe stress protocol * Goal Range 140 - 180 mg/dl * Drip rate ranging 1.9-2.8 units/hr over the past 8 hours Risk Factors for Insulin Resistance: * Infection: Urine culture growing GNB; IV Rocephin * IVF: D51/2NS +20KCl @150ml/hr --> changed to D5 at 80cc/hr at 1230 today for hypernatremia * Diet: NPO Assessment & Plan ASSESSMENT: * ADA & AACE recommend a goal blood sugar range 140-180 mg/dl for the majority of critically ill & non-critically ill patients. However, more stringent targets may be selected in individual cases. 07/20/16 * Type 2 DM patient admitted from [facility] for AMS, hyperglycemia, and anemia. Patient received 3 units PRBCs last night and started IV insulin infusion per severe stress protocol. Patient's PMH significant for schizoaffective disorder, depression, GERD, CAD, hx stroke. * Today, Anion gap closed, blood sugars pretty well controlled but patient has been hypernatremic (Na =156) and less responsive. After discussion with Dr. Harrington, we will continue insulin drip and start patient on D5 to help lower sodium. I will also start patient on Lantus to help transition off of insulin drip later tonight or tomorrow. PLAN FOR INPATIENT GLYCEMIC CONTROL: * CONTINUE IV insulin infusion per severe stress protocol * Goal Range 140 - 180 mg/dl * In the critical care setting, continuous IV insulin infusion has been shown to be the best method for achieving glycemic targets. * Lantus 20 units SQ x 1 dose now * Correctional Insulin with NOVOLOG per scale PCHS if patient is ordered a diet (Pt currently NPO) * Goal Range: Low 140 mg/dL - High 180 mg/dL * Nutritional / Prandial insulin per carb ratio based on insulin drip calculator * When patient is ready to transition off of insulin drip, I would recommend the following, considering patient is still on (D5@80cc/hr and drip rate has been between 1.9-2.8units/hr) * Lantus 20 units SQ BID * Novolog [id number] - Correctional insulin: 18mg/dL/unit; Carb ratio 1 unit per 6 grams CHO consumed * Please note that the plan above was derived based on current level of insulin resistance and hospital stress. These recommendations are appropriate for inpatient admission only. Plan of care upon discharge will need to be reassessed to avoid potential outpatient hypo/hyperglycemia. Thank you.
[2016-07-20 10:39] LABS: BUN/CREATININE RATIO 41.3 (10-20); CALCIUM 7.5 mg/dl (8.5-10.1); MAGNESIUM 2.8 mg/dl (1.8-2.4); POTASSIUM 4.3 mmol/L (3.5-5.1)
[2016-07-20 10:40] LABS: PHOSPHORUS 3.7 mg/dl (2.5-4.9)
[2016-07-20] MEDS: INSULIN REGULAR 250 UNITS in SODIUM CHLORIDE 0.9% 250ML 250 ML IV SCH (11:21)
[2016-07-20] MEDS ORDERED: PIPERACILL/TAZOBAC CONSULT ACTIVE PRN (12:45)
[2016-07-20] MEDS ORDERED: PIPERACILL/TAZOBAC IV 3.375 GM in DEXTROSE 5% 100ML 100 ML IV ONE ×2 (12:45→18:00)
[2016-07-20 12:56] LABS: BUN/CREATININE RATIO 40.2 (10-20); CALCIUM 7.7 mg/dl (8.5-10.1); CREATININE 1.8 mg/dl (0.60-1.40); MAGNESIUM 2.8 mg/dl (1.8-2.4); PHOSPHORUS 3.2 mg/dl (2.5-4.9); POTASSIUM 3.9 mmol/L (3.5-5.1)
[2016-07-20] MEDS: DEXTROSE 5% 1000ML 1,000 ML IV SCH ×2 (13:05→20:53)
[2016-07-20] MEDS ORDERED: INSULIN GLARGINE SOLOSTAR 100 UNITS/ML 3 ML PEN SC ONE (13:30)
[2016-07-20] MEDS ORDERED: NURSING VERBAL MED ORDER ONE (15:45)
--- NOTE | 2016-07-20 16:46 | Nephrology Consultation ---
Nephrology Consultation Date & Providers Date of Consultation: Jul 20, 2016. Primary Care Provider: Dillan Samuels Referring Provider: Reason for Consultation Hypernatremia History of Present Illness Mr. Fede Hinojosa is a 65-year-old male who was seen this afternoon for evaluation/management of hypernatremia. Mr. Errol Hinojosa was unable to provide history. Medical records were reviewed in detail and clinical history discussed with involved clinical staff. The patient was admitted from the Emergency Department yesterday. He has baseline dementia but recent decline in mental status. He presented for evaluation of significant hyperglycemia, hypotension and hypoxia. Laboratory studies on admission notable for a serum sodium of 150 with a blood glucose of 427. He was significantly anemic with a hemoglobin of 5. Overnight, he was transfused with 3 units of PRBC and an insulin gtt was started. The patient has been NPO due to his mental status. D5W infusion was instituted as blood glucose improved and is currently running at 80 ml/hr. NS infusion with gtt @ 50 ml/hr. Rod catheter draining clear urine with a urine output of 1.2 L today. Blood pressure improved with PRBC and volume support. Blood glucose has normalized but insulin gtt continued. Serum sodium remains stable at 156 mmol/L. Patient's family has expressed a desire to minimize interventions and provide a conservative approach to care. No interventions for evaluation of anemia are planned. No significant diarrhea or stool output was noted today. By report the patient was eating and drinking independently prior to recent acute change in mental status. In the ED, he received a fluid bolus of 1500mL saline and a dose of Zosyn and Daptomycin. Antibiotics continued with Zosyn. Urine culture growing GN rods. UA/micro notable only for a few WBC. Past Medical/Surgical History Medical: Dementia; schizoaffective disorder; history of CVA; diabetes mellitus; GERD; depression; gout; dyslipidemia; coronary artery disease Surgical: None reported Allergies Coded Allergies: No Known Allergies (Unverified , 07/19/16) Inpatient Medications Current Inpatient Medications Medications (Trade) Dose Ordered Sig/Angel Route Start Time Stop Time Status Last Admin Dose Admin Ondansetron HCl (Zofran Inj) 4 mg Q6H PRN IV 07/19/16 23:15 08/18/16 23:14 Morphine Sulfate (MoRPHine SULFATE INJ) 2 mg Q30M PRN IV 07/19/16 23:15 2/2/17 23:14 Haloperidol Lactate (Haldol Inj) 2 mg Q12 PRN IM 07/20/16 00:00 08/19/16 00:00 Lorazepam 0.5 mg 0.5 mg Q4H PRN IV 07/20/16 00:15 08/19/16 00:14 07/20/16 12:30 0.5 MG Insulin Human Regular/Sodium Chloride (novoLIN-R/Nss 250ml) 252.5 ml @ 0 mls/hr DAILY@1130 IV 07/20/16 11:30 08/19/16 11:29 07/20/16 11:21 2.8 MLS/HR Insulin Aspart (novoLOG ASPART) SLIDING SCALE [facility] SC 07/20/16 08:00 08/19/16 07:59 Glucose (Glucose 40% Gel) UD PRN PO 07/20/16 00:30 08/19/16 00:29 Glucose (Glucose Chew Tab) 1 tabs UD PRN PO 07/20/16 00:30 08/19/16 00:29 Dextrose (Dextrose 50% 50ML Syringe) 50 ml UD PRN IV 07/20/16 00:30 08/19/16 00:29 Glucagon 1 mg 1 mg UD PRN SQ 07/20/16 00:30 08/19/16 00:29 Dextrose (D5W 1000ml) 1,000 ml @ 150 mls/hr Q6H40M IV 07/20/16 12:15 08/19/16 12:14 07/20/16 13:05 80 MLS/HR Piperacillin Sod/ Tazobactam Sod 1 ea 1 ea UD PRN N/A 07/20/16 12:45 08/19/16 12:44 Piperacillin Sod/ Tazobactam Sod/ Dextrose (Zosyn Iv/D5 100ml) 115 ml @ 28.75 mls/ hr Q8H IV 07/20/16 18:00 07/30/16 17:59 Family History Patient reports no known family medical history. Social History Smoking Status: Unknown if Ever Smoked Drug Use: none Marital Status: Housing Status: correction Occupation: retired Review of Systems A complete review of systems was not able to be performed due to encephalopathy. Physical Exam Date Time Temp Pulse Resp B/P Pulse Ox O2 Delivery O2 Flow Rate FiO2 07/20/16 15:13 37.1 72 18 128/63 98 Nasal Cannula 2.0 07/20/16 12:00 Nasal Cannula 3.0 07/20/16 11:21 37.3 92 16 130/82 96 2.0 07/20/16 08:00 Nasal Cannula 3.0 07/20/16 07:28 36.4 92 18 129/54 98 2.0 07/20/16 07:17 36.9 91 117/73 97 07/20/16 06:18 37.2 95 106/65 98 07/20/16 05:18 36.7 92 16 102/61 98 07/20/16 04:48 36.9 93 115/66 98 07/20/16 04:33 36.9 95 120/75 97 3.0 07/20/16 04:00 98 Nasal Cannula 3.0 07/20/16 03:48 36.9 98 22 132/82 98 Nasal Cannula 3.0 07/20/16 02:10 36.9 92 22 123/77 99 3.0 07/20/16 01:40 36.9 96 122/77 99 3.0 07/20/16 00:40 36.6 96 20 116/77 100 3.0 07/20/16 00:10 37.0 95 115/75 99 3.0 07/19/16 23:50 36.6 92 20 113/75 97 3.0 07/19/16 23:30 36.6 20 113/75 97 3.0 07/19/16 23:23 36.9 99 20 122/78 100 07/19/16 23:21 99 20 122/78 100 Nasal Cannula 3.0 07/19/16 22:45 36.9 98 20 119/90 100 3.0 07/19/16 22:35 96 07/19/16 22:25 36.7 97 21 116/68 100 3.0 07/19/16 22:15 103 22 126/76 100 3.0 07/19/16 22:10 36.7 103 28 121/77 100 3.0 07/19/16 21:30 95 22 121/75 07/19/16 20:30 100 20 105/74 97 Nasal Cannula 3.0 07/19/16 20:00 37.3 103 20 107/70 99 Nasal Cannula 3.0 07/19/16 19:45 103 20 96/67 100 Nasal Cannula 4.0 07/19/16 19:30 100 Nasal Cannula 4.0 07/19/16 19:30 103 20 113/69 Nasal Cannula 4.0 07/19/16 19:27 107 07/19/16 19:18 Nasal Cannula 07/19/16 19:17 36.9 105 16 114/73 92 Nasal Cannula 2.0 General Appearance: + pertinent finding (Appropriately developed, thin, mild distress (grunting and yelling occassionally)) Head: normocephalic, atraumatic Eyes: normal inspection, sclerae normal ENT: normal ENT inspection, pharynx normal Neck: supple, no JVD Respiratory/Chest: lungs clear, no respiratory distress, no accessory muscle use Cardiovascular: regular rate, rhythm, no gallop Abdomen/GI: non tender, soft Extremities/Musculoskelatal: normal inspection, no pedal edema Neurologic/Psych: + pertinent finding (awake and slightly agitated, increased tone and slight hyperreflexia noted, moving all extremities, does not respond appropriately to voice) Skin: normal color Laboratory Results Last 24 Hours Test 07/19/16 19:16 07/19/16 19:22 07/19/16 20:00 07/19/16 20:23 Bedside Glucose 443 mg/dl White Blood Count 17.88 K/uL Red Blood Count 1.80 M/uL Hemoglobin 5.1 g/dL Hematocrit 15.9 % Mean Corpuscular Volume 88.3 fL Mean Corpuscular Hemoglobin 28.3 pg Mean Corpuscular Hemoglobin Concent 32.1 g/dl Platelet Count 214 K/uL Mean Platelet Volume 9.9 fL Neutrophils (%) (Auto) 71.2 % Lymphocytes (%) (Auto) 20.3 % Monocytes (%) (Auto) 7.4 % Eosinophils (%) (Auto) 0.0 % Basophils (%) (Auto) 0.1 % Neutrophils # (Auto) 12.74 K/uL Lymphocytes # (Auto) 3.63 K/uL Monocytes # (Auto) 1.32 K/uL Eosinophils # (Auto) 0.00 K/uL Basophils # (Auto) 0.02 K/uL RDW Standard Deviation 47.6 fL RDW Coefficient of Variation 16.1 % Immature Granulocyte % (Auto) 1.0 % Immature Granulocyte # (Auto) 0.17 K/uL Nucleated RBC Absolute Count (auto) 0.48 K/uL Nucleated Red Blood Cells % 2.7 % Polychromasia 2+ Sodium Level 150 mmol/L Potassium Level 4.8 mmol/L Chloride Level 115 mmol/L Carbon Dioxide Level 22 mmol/L Anion Gap 13.0 mmol/L Blood Urea Nitrogen 119 mg/dl Creatinine 2.60 mg/dl Est Creatinine Clear Calc Drug Dose 30.3 ml/min Estimated GFR () 28.3 Estimated GFR (Non- 24.4 BUN/Creatinine Ratio 45.7 Random Glucose 427 mg/dl Calcium Level 8.0 mg/dl Magnesium Level 3.0 mg/dl Total Bilirubin 0.2 mg/dl Aspartate Amino Transf (AST/SGOT) 6 U/L Alanine Aminotransferase (ALT/SGPT) 15 U/L Alkaline Phosphatase 50 U/L Troponin I 0.027 ng/ml Total Protein 5.6 gm/dl Albumin 2.9 gm/dl Globulin 2.7 gm/dl Albumin/Globulin Ratio 1.1 Beta-Hydroxybutyric Acid 1.55 mg/dL Thyroid Stimulating Hormone (TSH) 1.730 uIu/ml Influenza Type A Antigen Neg for Influ A Influenza Type B Antigen Neg for Influ B Prothrombin Time 12.0 SECONDS Prothromb Time International Ratio 1.1 Activated Partial Thromboplast Time 17.6 SECONDS Partial Thromboplastin Ratio 0.7 Test 07/19/16 20:26 07/19/16 20:55 07/19/16 21:07 07/19/16 22:32 Bedside Lactic Acid Venous 4.25 mmol/L Urine Color YELLOW Urine Appearance CLEAR Urine pH 5.0 Urine Specific [place] 1.017 Urine Protein NEG Urine Glucose (UA) 2+ Urine Ketones NEG Urine Occult Blood NEG Urine Nitrite NEG Urine Bilirubin NEG Urine Urobilinogen NEG Urine Leukocyte Esterase SMALL Urine WBC (Auto) 5-10 /hpf Urine RBC (Auto) 0-4 /hpf Urine Hyaline Casts (Auto) 1-5 /lpf Urine Epithelial Cells (Auto) >30 /lpf Urine Bacteria (Auto) 1+ Urine Renal Epithelial Cells 0-5 /lpf Urine Opiates Screen POS Urine Methadone, Qualitative NEG Urine Barbiturates NEG Urine Phencyclidine (PCP) Level NEG Ur Amphetamine/Methamphetamine NEG MDMA (Ecstasy) Screen NEG Urine Benzodiazepines Screen NEG Urine Cocaine Metabolite NEG Urine Marijuana (THC) NEG Bedside Glucose 406 mg/dl 344 mg/dl Test 07/19/16 23:47 07/20/16 00:51 07/20/16 01:44 07/20/16 02:44 Bedside Glucose 314 mg/dl 275 mg/dl 242 mg/dl 198 mg/dl Test 07/20/16 03:50 07/20/16 04:25 07/20/16 04:49 07/20/16 06:48 Bedside Glucose 180 mg/dl 169 mg/dl 191 mg/dl Venous Blood pH 7.33 Sodium Level 155 mmol/L Potassium Level 4.2 mmol/L Chloride Level 122 mmol/L Carbon Dioxide Level 24 mmol/L Anion Gap 9.0 mmol/L Blood Urea Nitrogen 97 mg/dl Creatinine 2.20 mg/dl Est Creatinine Clear Calc Drug Dose 35.8 ml/min Estimated GFR () 34.6 Estimated GFR (Non- 29.9 BUN/Creatinine Ratio 44.1 Random Glucose 171 mg/dl Calcium Level 7.7 mg/dl Phosphorus Level 4.3 mg/dl Magnesium Level 2.9 mg/dl Test 07/20/16 08:44 07/20/16 09:48 07/20/16 09:50 07/20/16 10:52 Bedside Glucose 214 mg/dl 203 mg/dl 213 mg/dl Sodium Level 156 mmol/L Potassium Level 4.3 mmol/L Chloride Level 123 mmol/L Carbon Dioxide Level 24 mmol/L Anion Gap 9.0 mmol/L Blood Urea Nitrogen 83 mg/dl Creatinine 2.00 mg/dl Est Creatinine Clear Calc Drug Dose 39.3 ml/min Estimated GFR () 38.9 Estimated GFR (Non- 33.5 BUN/Creatinine Ratio 41.3 Random Glucose 198 mg/dl Calcium Level 7.5 mg/dl Phosphorus Level 3.7 mg/dl Magnesium Level 2.8 mg/dl Test 07/20/16 11:04 07/20/16 11:53 07/20/16 12:09 07/20/16 13:15 Venous Blood pH 7.37 7.35 Bedside Glucose 210 mg/dl 228 mg/dl Sodium Level 156 mmol/L Potassium Level 3.9 mmol/L Chloride Level 122 mmol/L Carbon Dioxide Level 22 mmol/L Anion Gap 12.0 mmol/L Blood Urea Nitrogen 72 mg/dl Creatinine 1.80 mg/dl Est Creatinine Clear Calc Drug Dose 43.7 ml/min Estimated GFR () 44.2 Estimated GFR (Non- 38.1 BUN/Creatinine Ratio 40.2 Random Glucose 199 mg/dl Calcium Level 7.7 mg/dl Phosphorus Level 3.2 mg/dl Magnesium Level 2.8 mg/dl Test 07/20/16 15:44 Bedside Glucose 236 mg/dl Impression (1) Hypernatremia (2) Hyperglycemia (3) Hyperosmolality (4) Acute encephalopathy (5) Dementia (6) Anemia (7) Acute renal failure Mr. Errol Hinojosa is a 65-year old male with acute encephalopathy superimposed on dementia. He presented with notable anemia and a significant hyperosmolar state. Serum sodium on admission corrected for hyperglycemia was 155 mmol/L. This would suggest a free water deficit of 5.2 L. Hyperglycemia controlled with an insulin gtt but free water deficit persists. Serum sodium remains 155 mmol/L. I have asked that the infusion rate of D5W be increased to 150 ml/L. The patient remains NPO and NGT by report is not congruent with goals of care. With a free water replacement rate of 150 ml/L, I would expect serum sodium to correct appropriately to 145 over the next 24 hours. We will closely monitor the rate of correct. I am also checking urine osmolality, DI has not been completely excluded at this time. A repeat metabolic profile is currently pending and will be monitored q 3-4 hours. Hypotension improving with fluid and PRBC support. CORY is consistent with prerenal azotemia in the setting of anemia and hyperglycemic state. Creatinine has started to show signs of improvement. Medications are appropriately dosed for renal function. Will continue to monitor for renal recovery. Urine sediment does not suggest nephritis or ATN.
[2016-07-20] MEDS: PIPERACILL/TAZOBAC IV 3.375 GM in DEXTROSE 5% 100ML IV SCH (17:10)
--- NOTE | 2016-07-20 17:17 | Progress Note ---
Subjective Date of Service: Jul 20, 2016. Subjective Pt evaluation today including: conversation w/ patient, physical exam, chart review, lab review, review of studies Problem List Medical Problems: (1) Acute renal failure Status: Acute (2) GI bleed Status: Acute (3) Left hip pain Status: Acute (4) Sepsis Status: Acute (5) Status post fall Status: Acute (6) UTI (urinary tract infection) Status: Acute Review of Systems very lethargic with confusion ROS was unobtainable Medications Current Inpatient Medications Medications (Trade) Dose Ordered Sig/Angel Route Start Time Stop Time Status Last Admin Dose Admin Ondansetron HCl (Zofran Inj) 4 mg Q6H PRN IV 07/19/16 23:15 08/18/16 23:14 Morphine Sulfate (MoRPHine SULFATE INJ) 2 mg Q30M PRN IV 07/19/16 23:15 08/02/16 23:14 Haloperidol Lactate (Haldol Inj) 2 mg Q12 PRN IM 07/20/16 00:00 08/19/16 00:00 Lorazepam 0.5 mg 0.5 mg Q4H PRN IV 07/20/16 00:15 08/19/16 00:14 07/20/16 12:30 0.5 MG Insulin Human Regular/Sodium Chloride (novoLIN-R/Nss 250ml) 252.5 ml @ 0 mls/hr DAILY@1130 IV 07/20/16 11:30 08/19/16 11:29 07/20/16 11:21 2.8 MLS/HR Insulin Aspart (novoLOG ASPART) SLIDING SCALE [facility] SC 07/20/16 08:00 08/19/16 07:59 Glucose (Glucose 40% Gel) UD PRN PO 07/20/16 00:30 08/19/16 00:29 Glucose (Glucose Chew Tab) 1 tabs UD PRN PO 07/20/16 00:30 08/19/16 00:29 Dextrose (Dextrose 50% 50ML Syringe) 50 ml UD PRN IV 07/20/16 00:30 08/19/16 00:29 Glucagon 1 mg 1 mg UD PRN SQ 07/20/16 00:30 08/19/16 00:29 Dextrose (D5W 1000ml) 1,000 ml @ 150 mls/hr Q6H40M IV 07/20/16 12:15 08/19/16 12:14 07/20/16 13:05 80 MLS/HR Piperacillin Sod/ Tazobactam Sod 1 ea 1 ea UD PRN N/A 07/20/16 12:45 08/19/16 12:44 Piperacillin Sod/ Tazobactam Sod/ Dextrose (Zosyn Iv/D5 100ml) 115 ml @ 28.75 mls/ hr Q8H IV 07/20/16 18:00 07/30/16 17:59 Objective Vital Signs Date Time Temp Pulse Resp B/P Pulse Ox O2 Delivery O2 Flow Rate FiO2 07/20/16 15:13 37.1 72 18 128/63 98 Nasal Cannula 2.0 07/20/16 12:00 Nasal Cannula 3.0 07/20/16 11:21 37.3 92 16 130/82 96 2.0 07/20/16 08:00 Nasal Cannula 3.0 07/20/16 07:28 36.4 92 18 129/54 98 2.0 07/20/16 07:17 36.9 91 117/73 97 07/20/16 06:18 37.2 95 106/65 98 07/20/16 05:18 36.7 92 16 102/61 98 07/20/16 04:48 36.9 93 115/66 98 07/20/16 04:33 36.9 95 120/75 97 3.0 07/20/16 04:00 98 Nasal Cannula 3.0 07/20/16 03:48 36.9 98 22 132/82 98 Nasal Cannula 3.0 07/20/16 02:10 36.9 92 22 123/77 99 3.0 07/20/16 01:40 36.9 96 122/77 99 3.0 07/20/16 00:40 36.6 96 20 116/77 100 3.0 07/20/16 00:10 37.0 95 115/75 99 3.0 07/19/16 23:50 36.6 92 20 113/75 97 3.0 07/19/16 23:30 36.6 20 113/75 97 3.0 07/19/16 23:23 36.9 99 20 122/78 100 07/19/16 23:21 99 20 122/78 100 Nasal Cannula 3.0 07/19/16 22:45 36.9 98 20 119/90 100 3.0 07/19/16 22:35 96 07/19/16 22:25 36.7 97 21 116/68 100 3.0 07/19/16 22:15 103 22 126/76 100 3.0 07/19/16 22:10 36.7 103 28 121/77 100 3.0 07/19/16 21:30 95 22 121/75 07/19/16 20:30 100 20 105/74 97 Nasal Cannula 3.0 07/19/16 20:00 37.3 103 20 107/70 99 Nasal Cannula 3.0 07/19/16 19:45 103 20 96/67 100 Nasal Cannula 4.0 07/19/16 19:30 100 Nasal Cannula 4.0 07/19/16 19:30 103 20 113/69 Nasal Cannula 4.0 07/19/16 19:27 107 07/19/16 19:18 Nasal Cannula 07/19/16 19:17 36.9 105 16 114/73 92 Nasal Cannula 2.0 Physical Exam General Appearance: + moderate distress Eyes: PERRL ENT: normal ENT inspection Neck: supple Respiratory/Chest: chest non-tender, lungs clear, normal breath sounds, no respiratory distress, no accessory muscle use Cardiovascular: regular rate, rhythm, no edema, no gallop, no JVD, no murmur Abdomen: normal bowel sounds, non tender, soft, no organomegaly Extremities: normal range of motion, non-tender, normal inspection, no pedal edema Neurologic/Psychiatric: + pertinent finding (very lethargic) Skin: normal color, warm/dry, no rash Laboratory Results Last 24 Hours Test 07/19/16 19:16 07/19/16 19:22 07/19/16 20:00 07/19/16 20:23 Bedside Glucose 443 mg/dl White Blood Count 17.88 K/uL Red Blood Count 1.80 M/uL Hemoglobin 5.1 g/dL Hematocrit 15.9 % Mean Corpuscular Volume 88.3 fL Mean Corpuscular Hemoglobin 28.3 pg Mean Corpuscular Hemoglobin Concent 32.1 g/dl Platelet Count 214 K/uL Mean Platelet Volume 9.9 fL Neutrophils (%) (Auto) 71.2 % Lymphocytes (%) (Auto) 20.3 % Monocytes (%) (Auto) 7.4 % Eosinophils (%) (Auto) 0.0 % Basophils (%) (Auto) 0.1 % Neutrophils # (Auto) 12.74 K/uL Lymphocytes # (Auto) 3.63 K/uL Monocytes # (Auto) 1.32 K/uL Eosinophils # (Auto) 0.00 K/uL Basophils # (Auto) 0.02 K/uL RDW Standard Deviation 47.6 fL RDW Coefficient of Variation 16.1 % Immature Granulocyte % (Auto) 1.0 % Immature Granulocyte # (Auto) 0.17 K/uL Nucleated RBC Absolute Count (auto) 0.48 K/uL Nucleated Red Blood Cells % 2.7 % Polychromasia 2+ Sodium Level 150 mmol/L Potassium Level 4.8 mmol/L Chloride Level 115 mmol/L Carbon Dioxide Level 22 mmol/L Anion Gap 13.0 mmol/L Blood Urea Nitrogen 119 mg/dl Creatinine 2.60 mg/dl Est Creatinine Clear Calc Drug Dose 30.3 ml/min Estimated GFR () 28.3 Estimated GFR (Non- 24.4 BUN/Creatinine Ratio 45.7 Random Glucose 427 mg/dl Calcium Level 8.0 mg/dl Magnesium Level 3.0 mg/dl Total Bilirubin 0.2 mg/dl Aspartate Amino Transf (AST/SGOT) 6 U/L Alanine Aminotransferase (ALT/SGPT) 15 U/L Alkaline Phosphatase 50 U/L Troponin I 0.027 ng/ml Total Protein 5.6 gm/dl Albumin 2.9 gm/dl Globulin 2.7 gm/dl Albumin/Globulin Ratio 1.1 Beta-Hydroxybutyric Acid 1.55 mg/dL Thyroid Stimulating Hormone (TSH) 1.730 uIu/ml Influenza Type A Antigen Neg for Influ A Influenza Type B Antigen Neg for Influ B Prothrombin Time 12.0 SECONDS Prothromb Time International Ratio 1.1 Activated Partial Thromboplast Time 17.6 SECONDS Partial Thromboplastin Ratio 0.7 Test 07/19/16 20:26 07/19/16 20:55 07/19/16 21:07 07/19/16 22:32 Bedside Lactic Acid Venous 4.25 mmol/L Urine Color YELLOW Urine Appearance CLEAR Urine pH 5.0 Urine Specific [place] 1.017 Urine Protein NEG Urine Glucose (UA) 2+ Urine Ketones NEG Urine Occult Blood NEG Urine Nitrite NEG Urine Bilirubin NEG Urine Urobilinogen NEG Urine Leukocyte Esterase SMALL Urine WBC (Auto) 5-10 /hpf Urine RBC (Auto) 0-4 /hpf Urine Hyaline Casts (Auto) 1-5 /lpf Urine Epithelial Cells (Auto) >30 /lpf Urine Bacteria (Auto) 1+ Urine Renal Epithelial Cells 0-5 /lpf Urine Opiates Screen POS Urine Methadone, Qualitative NEG Urine Barbiturates NEG Urine Phencyclidine (PCP) Level NEG Ur Amphetamine/Methamphetamine NEG MDMA (Ecstasy) Screen NEG Urine Benzodiazepines Screen NEG Urine Cocaine Metabolite NEG Urine Marijuana (THC) NEG Bedside Glucose 406 mg/dl 344 mg/dl Test 07/19/16 23:47 07/20/16 00:51 07/20/16 01:44 07/20/16 02:44 Bedside Glucose 314 mg/dl 275 mg/dl 242 mg/dl 198 mg/dl Test 07/20/16 03:50 07/20/16 04:25 07/20/16 04:49 07/20/16 06:48 Bedside Glucose 180 mg/dl 169 mg/dl 191 mg/dl Venous Blood pH 7.33 Sodium Level 155 mmol/L Potassium Level 4.2 mmol/L Chloride Level 122 mmol/L Carbon Dioxide Level 24 mmol/L Anion Gap 9.0 mmol/L Blood Urea Nitrogen 97 mg/dl Creatinine 2.20 mg/dl Est Creatinine Clear Calc Drug Dose 35.8 ml/min Estimated GFR () 34.6 Estimated GFR (Non- 29.9 BUN/Creatinine Ratio 44.1 Random Glucose 171 mg/dl Calcium Level 7.7 mg/dl Phosphorus Level 4.3 mg/dl Magnesium Level 2.9 mg/dl Test 07/20/16 08:44 07/20/16 09:48 07/20/16 09:50 07/20/16 10:52 Bedside Glucose 214 mg/dl 203 mg/dl 213 mg/dl Sodium Level 156 mmol/L Potassium Level 4.3 mmol/L Chloride Level 123 mmol/L Carbon Dioxide Level 24 mmol/L Anion Gap 9.0 mmol/L Blood Urea Nitrogen 83 mg/dl Creatinine 2.00 mg/dl Est Creatinine Clear Calc Drug Dose 39.3 ml/min Estimated GFR () 38.9 Estimated GFR (Non- 33.5 BUN/Creatinine Ratio 41.3 Random Glucose 198 mg/dl Calcium Level 7.5 mg/dl Phosphorus Level 3.7 mg/dl Magnesium Level 2.8 mg/dl Test 07/20/16 11:04 07/20/16 11:53 07/20/16 12:09 07/20/16 13:15 Venous Blood pH 7.37 7.35 Bedside Glucose 210 mg/dl 228 mg/dl Sodium Level 156 mmol/L Potassium Level 3.9 mmol/L Chloride Level 122 mmol/L Carbon Dioxide Level 22 mmol/L Anion Gap 12.0 mmol/L Blood Urea Nitrogen 72 mg/dl Creatinine 1.80 mg/dl Est Creatinine Clear Calc Drug Dose 43.7 ml/min Estimated GFR () 44.2 Estimated GFR (Non- 38.1 BUN/Creatinine Ratio 40.2 Random Glucose 199 mg/dl Calcium Level 7.7 mg/dl Phosphorus Level 3.2 mg/dl Magnesium Level 2.8 mg/dl Test 07/20/16 15:44 07/20/16 16:04 07/20/16 16:39 07/20/16 16:57 Bedside Glucose 236 mg/dl 237 mg/dl Venous Blood pH 7.46 Test 07/20/16 17:03 Assessment and Plan 65 years old man with PMHx of schizoaffective disorder, depression, GERD, coronary artery disease, and previous stroke, who presents from the [facility] with altered mental status and hyperglycemia DKA: started on insulin drip, BS controlled now UTI POA, continue Abx, follow up cultures , continue empiric Abx Severe hypernatremia, continue D5W infusion, increased by Dr. Lloyd to150, follow up sodium level Metabolic encephalopathy secondary to above Severe anemia, likely GI bleed (Hx of GI bleed in the past , refused colonoscopy ) continue holding ASA/Plavix, S/P pRBCs, repeat CBC Schizoaffective disorder - Will hold PO home meds: Keppra, Ativan, Seroquel, Effexor, Gabapentin - Receives monthly haloperidol decanoate, will hold daily haloperidol for now SCDs DO NOT RESUSCITATE / DO NOT INTUBATE *REFER TO POL FOR FURTHER DETAILS*
[2016-07-20 18:11] LABS: MEAN CELL VOLUME 86.3 fL (80-100); MEAN CORPUSCULAR HEMOGLOBIN 29.1 pg (25-34); MEAN CORPUSCULAR HGB CONC 33.8 g/dl (32-36); MEAN PLATELET VOLUME 9.4 fL (7.4-10.4); PLATELET COUNT 137 K/uL (130-400); RED BLOOD COUNT 2.78 M/uL (4.7-6.1); WHITE BLOOD COUNT 14.93 K/uL (4.8-10.8)
[2016-07-20 18:38] LABS: BASO % 0.1 %; BASO ABS # 0.02 K/uL (0-0.2); BUN/CREATININE RATIO 32.1 (10-20); CALCIUM 7.8 mg/dl (8.5-10.1); COMPLETE YES; CREATININE 1.7 mg/dl (0.60-1.40); EOS % 0.1 %; HYPOCHROMIA PRESENT; IG% 0.8 %; LYMPH % 11.3 %; LYMPH ABS # 1.68 K/uL (1.2-3.4); MAGNESIUM 2.5 mg/dl (1.8-2.4); MONO % 7.9 %; NEUT % 79.8 %; POLYCHROMASIA 1+; POTASSIUM 3.5 mmol/L (3.5-5.1)
[2016-07-20 18:39] LABS: PHOSPHORUS 2.2 mg/dl (2.5-4.9)
[2016-07-20 21:12] LABS: BUN/CREATININE RATIO 32.4 (10-20); CALCIUM 7.7 mg/dl (8.5-10.1); CREATININE 1.6 mg/dl (0.60-1.40); MAGNESIUM 2.6 mg/dl (1.8-2.4); PHOSPHORUS 2.2 mg/dl (2.5-4.9); POTASSIUM 3.5 mmol/L (3.5-5.1)
[2016-07-21] VITALS (7 sets, daily range): BP systolic 103–125; BP diastolic 62–75; PULSE 82–90; TEMP 36.6–37.7; O2SAT 91–97
[2016-07-21] MEDS: DEXTROSE 5% 1000ML 1,000 ML IV SCH ×5 (00:37→17:31)
[2016-07-21 00:46] LABS: BUN/CREATININE RATIO 24.9 (10-20); CALCIUM 7.9 mg/dl (8.5-10.1); CREATININE 1.6 mg/dl (0.60-1.40); MAGNESIUM 2.5 mg/dl (1.8-2.4); POTASSIUM 3.2 mmol/L (3.5-5.1)
[2016-07-21 00:47] LABS: PHOSPHORUS 2.6 mg/dl (2.5-4.9)
[2016-07-21] MEDS: PIPERACILL/TAZOBAC IV 3.375 GM in DEXTROSE 5% 100ML IV SCH (02:08)
[2016-07-21] MEDS: HALOPERIDOL LACTATE 5 MG/ML 1 ML VIAL IM PRN ×2 (02:26→15:07)
[2016-07-21 06:35] LABS: BASO % 0.1 %; BASO ABS # 0.01 K/uL (0-0.2); EOS % 0.1 %; IG% 0.6 %; LYMPH % 13.3 %; LYMPH ABS # 1.98 K/uL (1.2-3.4); MEAN CELL VOLUME 84.9 fL (80-100); MEAN PLATELET VOLUME 9.4 fL (7.4-10.4); MONO % 6.9 %; PLATELET COUNT 147 K/uL (130-400); RED BLOOD COUNT 2.71 M/uL (4.7-6.1); WHITE BLOOD COUNT 14.87 K/uL (4.8-10.8)
[2016-07-21 07:07] LABS: BUN/CREATININE RATIO 21.2 (10-20); CALCIUM 7.4 mg/dl (8.5-10.1); CREATININE 1.5 mg/dl (0.60-1.40); MAGNESIUM 2.3 mg/dl (1.8-2.4); POTASSIUM 2.9 mmol/L (3.5-5.1)
[2016-07-21 07:09] LABS: PHOSPHORUS 2.1 mg/dl (2.5-4.9)
[2016-07-21 07:12] LABS: COMPLETE YES; POLYCHROMASIA 1+
[2016-07-21] MEDS ORDERED: POTASSIUM CHLORIDE 20 MEQ/15 ML UDC PO ONE (08:00)
[2016-07-21] MEDS ORDERED: POTASSIUM CHLR 10 MEQ / WTR 10 MEQ in PREMIXED WATER 100 ML IV ONE ×3 (08:00→22:45)
[2016-07-21] MEDS: INSULIN ASPART 100 UNITS/ML 3 ML PEN SC SCH ×4 (08:00→21:00)
[2016-07-21] MEDS ORDERED: POTASSIUM PHOS 3 MMOL/1 ML INFUSION IV STA ×2 (09:45→22:27)
[2016-07-21] MEDS: LORAZEPAM 2 MG/ML 1 ML VIAL IV PRN ×2 (09:59→22:57)
[2016-07-21] MEDS ORDERED: POTASSIUM PHOSPHATE INJ 15 MMOL in SODIUM CHLORIDE 0.9% 250ML 250 ML IV SCH ×2 (10:30→22:45)
--- NOTE | 2016-07-21 11:11 | Nephrology Progress Note ---
Nephrology Progress Note Date of Service Jul 21, 2016. Chief Complaint Hypernatremia Subjective No acute events overnight. More awake today. Opened eyes appropriately to voice and responded to simple requests. Denied shortness of breath or pain with one word answers. No fevers. Remains on insulin gtt. Remains NPO. No reported melena or hematochezia Review of Systems A complete review of systems was performed. Pertinent positives are noted above. All other systems are negative. Vital Signs Last 8 Hrs Date Time Temp Pulse Resp B/P Pulse Ox O2 Delivery O2 Flow Rate FiO2 07/21/16 07:30 36.8 87 18 118/62 97 07/21/16 04:23 37.0 84 22 109/63 91 07/21/16 04:00 Nasal Cannula 3.0 I & O 24-Hour Column 07/21/16 08:00 Intake Total 4149 ml Output Total 3650 ml Balance 499 ml Last Recorded Weight Weight (Kilograms): 80.600 Physical Exam General Appearance: no apparent distress, + thin Head: normocephalic, atraumatic Eyes: normal inspection, sclerae normal ENT: normal ENT inspection, pharynx normal Neck: supple, no JVD Respiratory/Chest: lungs clear, no respiratory distress, no accessory muscle use Cardiovascular: regular rate, rhythm, no gallop Abdomen/GI: non tender, soft Extremities/Musculoskelatal: normal inspection, no pedal edema Neurologic/Psych: + pertinent finding (awake, no acute distress, agitation improved) Family History Patient reports no known family medical history. Social History Drug Use: none Marital Status: Housing Status: senior care Occupation: retired Laboratory Results Past 24 Hours 07/20/16 17:48 Red Blood Count 2.78, Mean Corpuscular Volume 86.3, Mean Corpuscular Hemoglobin 29.1, Mean Corpuscular Hemoglobin Concent 33.8, Mean Platelet Volume 9.4, Neutrophils (%) (Auto) 79.8, Lymphocytes (%) (Auto) 11.3, Monocytes (%) (Auto) 7.9, Eosinophils (%) (Auto) 0.1, Basophils (%) (Auto) 0.1, Neutrophils # (Auto) 11.92, Lymphocytes # (Auto) 1.68, Monocytes # (Auto) 1.18, Eosinophils # (Auto) 0.01, Basophils # (Auto) 0.02 07/21/16 06:14 Red Blood Count 2.71, Mean Corpuscular Volume 84.9, Mean Corpuscular Hemoglobin 28.0, Mean Corpuscular Hemoglobin Concent 33.0, Mean Platelet Volume 9.4, Neutrophils (%) (Auto) 79.0, Lymphocytes (%) (Auto) 13.3, Monocytes (%) (Auto) 6.9, Eosinophils (%) (Auto) 0.1, Basophils (%) (Auto) 0.1, Neutrophils # (Auto) 11.75, Lymphocytes # (Auto) 1.98, Monocytes # (Auto) 1.03, Eosinophils # (Auto) 0.01, Basophils # (Auto) 0.01 07/20/16 12:09 07/20/16 17:48 07/20/16 19:45 07/21/16 00:20 07/21/16 06:14 Test 07/20/16 11:04 07/20/16 11:53 07/20/16 12:09 07/20/16 13:15 Venous Blood pH 7.37 (7.36-7.41) 7.35 (7.36-7.41) Bedside Glucose 210 mg/dl (70-99) 228 mg/dl (70-99) Anion Gap 12.0 mmol/L (3-11) Est Creatinine Clear Calc Drug Dose 43.7 ml/min Estimated GFR () 44.2 Estimated GFR (Non- 38.1 BUN/Creatinine Ratio 40.2 (10-20) Calcium Level 7.7 mg/dl (8.5-10.1) Phosphorus Level 3.2 mg/dl (2.5-4.9) Magnesium Level 2.8 mg/dl (1.8-2.4) Test 07/20/16 15:44 07/20/16 16:04 07/20/16 16:39 07/20/16 17:48 Bedside Glucose 236 mg/dl (70-99) 237 mg/dl (70-99) Venous Blood pH 7.46 (7.36-7.41) White Blood Count 14.93 K/uL (4.8-10.8) Red Blood Count 2.78 M/uL (4.7-6.1) Hemoglobin 8.1 g/dL (14.0-18.0) Hematocrit 24.0 % (42-52) Mean Corpuscular Volume 86.3 fL (80-100) Mean Corpuscular Hemoglobin 29.1 pg (25-34) Mean Corpuscular Hemoglobin Concent 33.8 g/dl (32-36) Platelet Count 137 K/uL (130-400) Mean Platelet Volume 9.4 fL (7.4-10.4) Neutrophils (%) (Auto) 79.8 % Lymphocytes (%) (Auto) 11.3 % Monocytes (%) (Auto) 7.9 % Eosinophils (%) (Auto) 0.1 % Basophils (%) (Auto) 0.1 % Neutrophils # (Auto) 11.92 K/uL (1.4-6.5) Lymphocytes # (Auto) 1.68 K/uL (1.2-3.4) Monocytes # (Auto) 1.18 K/uL (0.11-0.59) Eosinophils # (Auto) 0.01 K/uL (0-0.5) Basophils # (Auto) 0.02 K/uL (0-0.2) RDW Standard Deviation 46.4 fL (36.4-46.3) RDW Coefficient of Variation 15.1 % (11.5-14.5) Immature Granulocyte % (Auto) 0.8 % Immature Granulocyte # (Auto) 0.12 K/uL (0.00-0.02) Nucleated RBC Absolute Count (auto) 0.28 K/uL (0-0) Nucleated Red Blood Cells % 1.9 % Polychromasia 1+ Hypochromasia PRESENT Anion Gap 12.0 mmol/L (3-11) Est Creatinine Clear Calc Drug Dose 46.3 ml/min Estimated GFR () 47.3 Estimated GFR (Non- 40.8 BUN/Creatinine Ratio 32.1 (10-20) Calcium Level 7.8 mg/dl (8.5-10.1) Phosphorus Level 2.2 mg/dl (2.5-4.9) Magnesium Level 2.5 mg/dl (1.8-2.4) Test 07/20/16 17:53 07/20/16 19:07 07/20/16 19:45 07/20/16 20:00 Bedside Glucose 221 mg/dl (70-99) 191 mg/dl (70-99) Venous Blood pH 7.39 (7.36-7.41) Anion Gap 11.0 mmol/L (3-11) Est Creatinine Clear Calc Drug Dose 49.2 ml/min Estimated GFR () 50.9 Estimated GFR (Non- 43.9 BUN/Creatinine Ratio 32.4 (10-20) Calcium Level 7.7 mg/dl (8.5-10.1) Phosphorus Level 2.2 mg/dl (2.5-4.9) Magnesium Level 2.6 mg/dl (1.8-2.4) Albumin 2.6 gm/dl (3.4-5.0) Urine Osmolality 647 mOms/kg (500-800) Test 07/20/16 20:22 07/20/16 21:31 07/20/16 22:27 07/21/16 00:20 Bedside Glucose 178 mg/dl (70-99) 139 mg/dl (70-99) 128 mg/dl (70-99) Venous Blood pH 7.39 (7.36-7.41) Anion Gap 12.0 mmol/L (3-11) Est Creatinine Clear Calc Drug Dose 49.2 ml/min Estimated GFR () 50.9 Estimated GFR (Non- 43.9 BUN/Creatinine Ratio 24.9 (10-20) Calcium Level 7.9 mg/dl (8.5-10.1) Phosphorus Level 2.6 mg/dl (2.5-4.9) Magnesium Level 2.5 mg/dl (1.8-2.4) Test 07/21/16 00:41 07/21/16 01:02 07/21/16 01:18 07/21/16 02:05 Bedside Glucose 101 mg/dl (70-99) 98 mg/dl (70-99) 99 mg/dl (70-99) 112 mg/dl (70-99) Test 07/21/16 02:55 07/21/16 04:02 07/21/16 05:02 07/21/16 05:54 Bedside Glucose 156 mg/dl (70-99) 174 mg/dl (70-99) 174 mg/dl (70-99) 187 mg/dl (70-99) Test 07/21/16 06:14 07/21/16 06:48 07/21/16 08:06 07/21/16 08:57 White Blood Count 14.87 K/uL (4.8-10.8) Red Blood Count 2.71 M/uL (4.7-6.1) Hemoglobin 7.6 g/dL (14.0-18.0) Hematocrit 23.0 % (42-52) Mean Corpuscular Volume 84.9 fL (80-100) Mean Corpuscular Hemoglobin 28.0 pg (25-34) Mean Corpuscular Hemoglobin Concent 33.0 g/dl (32-36) Platelet Count 147 K/uL (130-400) Mean Platelet Volume 9.4 fL (7.4-10.4) Neutrophils (%) (Auto) 79.0 % Lymphocytes (%) (Auto) 13.3 % Monocytes (%) (Auto) 6.9 % Eosinophils (%) (Auto) 0.1 % Basophils (%) (Auto) 0.1 % Neutrophils # (Auto) 11.75 K/uL (1.4-6.5) Lymphocytes # (Auto) 1.98 K/uL (1.2-3.4) Monocytes # (Auto) 1.03 K/uL (0.11-0.59) Eosinophils # (Auto) 0.01 K/uL (0-0.5) Basophils # (Auto) 0.01 K/uL (0-0.2) RDW Standard Deviation 45.9 fL (36.4-46.3) RDW Coefficient of Variation 14.9 % (11.5-14.5) Immature Granulocyte % (Auto) 0.6 % Immature Granulocyte # (Auto) 0.09 K/uL (0.00-0.02) Nucleated RBC Absolute Count (auto) 0.16 K/uL (0-0) Nucleated Red Blood Cells % 1.1 % Polychromasia 1+ Anion Gap 10.0 mmol/L (3-11) Est Creatinine Clear Calc Drug Dose 52.5 ml/min Estimated GFR () 55.0 Estimated GFR (Non- 47.5 BUN/Creatinine Ratio 21.2 (10-20) Calcium Level 7.4 mg/dl (8.5-10.1) Phosphorus Level 2.1 mg/dl (2.5-4.9) Magnesium Level 2.3 mg/dl (1.8-2.4) Total Bilirubin 0.3 mg/dl (0.2-1) Aspartate Amino Transf (AST/SGOT) 13 U/L (15-37) Alanine Aminotransferase (ALT/SGPT) 13 U/L (12-78) Alkaline Phosphatase 44 U/L (45-117) Total Protein 5.3 gm/dl (6.4-8.2) Albumin 2.7 gm/dl (3.4-5.0) Globulin 2.6 gm/dl (2.5-4.0) Albumin/Globulin Ratio 1.0 (0.9-2) Bedside Glucose 194 mg/dl (70-99) 149 mg/dl (70-99) 123 mg/dl (70-99) Test 07/21/16 09:42 07/21/16 10:10 Bedside Glucose 136 mg/dl (70-99) 150 mg/dl (70-99) Allergies Coded Allergies: No Known Allergies (Unverified , 07/19/16) Medications Current Inpatient Medications Medications (Trade) Dose Ordered Sig/Angel Route Start Time Stop Time Status Last Admin Dose Admin Ondansetron HCl (Zofran Inj) 4 mg Q6H PRN IV 07/19/16 23:15 08/18/16 23:14 Morphine Sulfate (MoRPHine SULFATE INJ) 2 mg Q30M PRN IV 07/19/16 23:15 08/02/16 23:14 Haloperidol Lactate (Haldol Inj) 2 mg Q12 PRN IM 07/20/16 00:00 08/19/16 00:00 07/21/16 02:26 2 MG Lorazepam 0.5 mg 0.5 mg Q4H PRN IV 07/20/16 00:15 08/19/16 00:14 07/21/16 09:59 0.5 MG Insulin Human Regular/Sodium Chloride (novoLIN-R/Nss 250ml) 252.5 ml @ 0 mls/hr DAILY@1130 IV 07/20/16 11:30 08/19/16 11:29 07/20/16 11:21 2.8 MLS/HR Insulin Aspart (novoLOG ASPART) SLIDING SCALE [facility] SC 07/20/16 08:00 08/19/16 07:59 Glucose (Glucose 40% Gel) UD PRN PO 07/20/16 00:30 08/19/16 00:29 Glucose (Glucose Chew Tab) 1 tabs UD PRN PO 07/20/16 00:30 08/19/16 00:29 Dextrose (Dextrose 50% 50ML Syringe) 50 ml UD PRN IV 07/20/16 00:30 08/19/16 00:29 Glucagon 1 mg 1 mg UD PRN SQ 07/20/16 00:30 2 00:29 Dextrose 1,000 ml @ 200 mls/hr Q5H IV 07/20/16 12:15 08/19/16 12:14 07/21/16 08:35 200 MLS/HR Potassium Chloride 10 meq/ Prmx 100 ml @ 100 mls/hr NOW ONCE IV 07/21/16 12:00 07/21/16 12:59 Potassium Phosphate 15 mmol/ Sodium Chloride 255 ml @ 102 mls/hr TODAY@1030 IV 07/21/16 10:30 07/21/16 12:59 Ceftriaxone Sodium/Dextrose (Rocephin Inj/D5 50ml) 70 ml @ 100 mls/hr Q24H IV 07/21/16 12:00 07/31/16 11:59 Impression (1) Hypernatremia (2) Hyperglycemia (3) Hyperosmolality (4) Acute encephalopathy (5) Dementia (6) Anemia (7) Acute renal failure Mr. Errol Hinojosa is a 65-year old male with acute encephalopathy superimposed on dementia. He presented with notable anemia and a significant hyperosmolar state. He was notably anemic on presentation. Hemoglobin fairly stable following PRBC x 3 units transfusion. Hyperglycemia controlled with insulin gtt. Hypernatremia correctly appropriately. Tolerating D5W infusion. Patient clinically improving. Baseline dependent and unclear what access to water and insulin at assisted facility was. He remains unable to take PO at this time. Will continue D5W at current rate and monitor correction. Repeat labs at noon and adjust accordingly. CORY is consistent with prerenal azotemia in the setting of anemia and hyperglycemic state. Creatinine continues to show signs of improvement. Medications are appropriately dosed for renal function. Will continue to monitor for renal recovery. Urine sediment does not suggest nephritis or ATN. Recommendations CORY: -- Prerenal and related to hyperosmolar state -- Continues to show evidence of improvement with IV hydration Hypokalemia: -- KCl 20 mEq x 2 -- Kphos 15 mmol x 1 -- Repeat metabolic profile at noon Hypernatremia: -- Correcting appropriately -- Continue D5W @ 200 ml/hr -- Repeat metabolic profile at noon Hyperglycemia: -- Improving. Suspect may be able to transition off insulin gtt
[2016-07-21] MEDS ORDERED: NURSING VERBAL MED ORDER ONE ×2 (11:15→16:45)
[2016-07-21] MEDS: INSULIN REGULAR 250 UNITS in SODIUM CHLORIDE 0.9% 250ML 250 ML IV SCH (13:03)
[2016-07-21] MEDS: CEFTRIAXONE SOD INJ 2,000 MG in DEXTROSE 5% 50ML 50 ML IV SCH (15:07)
[2016-07-21 15:36] LABS: BUN/CREATININE RATIO 15.9 (10-20); CALCIUM 7.3 mg/dl (8.5-10.1); CREATININE 1.3 mg/dl (0.60-1.40); POTASSIUM 3.3 mmol/L (3.5-5.1)
[2016-07-21] MEDS ORDERED: INSULIN GLARGINE SOLOSTAR 100 UNITS/ML 3 ML PEN SC SCH (17:00)
[2016-07-21] MEDS: POTASSIUM CHLR 10MEQ / WTR IV SCH ×2 (17:32→19:15)
[2016-07-21] MEDS: POTASSIUM CHLORIDE INJ 20 MEQ in DEXTROSE 5% 1000ML 1,000 ML IV SCH (19:13)
--- NOTE | 2016-07-21 19:27 | Progress Note ---
Subjective Date of Service: Jul 21, 2016. Subjective Pt evaluation today including: conversation w/ patient, physical exam, lab review Problem List Medical Problems: (1) Acute renal failure Status: Acute (2) GI bleed Status: Acute (3) Left hip pain Status: Acute (4) Sepsis Status: Acute (5) Status post fall Status: Acute (6) UTI (urinary tract infection) Status: Acute Review of Systems unobtainable due to change in mental status Medications Current Inpatient Medications Medications (Trade) Dose Ordered Sig/Angel Route Start Time Stop Time Status Last Admin Dose Admin Ondansetron HCl (Zofran Inj) 4 mg Q6H PRN IV 07/19/16 23:15 08/18/16 23:14 Morphine Sulfate (MoRPHine SULFATE INJ) 2 mg Q30M PRN IV 07/19/16 23:15 08/02/16 23:14 Haloperidol Lactate (Haldol Inj) 2 mg Q12 PRN IM 07/20/16 00:00 08/19/16 00:00 07/21/16 15:07 2 MG Miscellaneous Information (Consult Glycemic Management Pharmacy) 1 ea UD PRN N/A 07/20/16 00:30 08/19/16 00:29 Lorazepam 0.5 mg 0.5 mg Q4H PRN IV 07/20/16 00:15 08/19/16 00:14 07/21/16 09:59 0.5 MG Insulin Human Regular/Sodium Chloride (novoLIN-R/Nss 250ml) 252.5 ml @ 0 mls/hr DAILY@1130 IV 07/20/16 11:30 08/19/16 11:29 07/21/16 13:03 1.9 MLS/HR Insulin Aspart (novoLOG ASPART) SLIDING SCALE [facility] SC 07/20/16 08:00 08/19/16 07:59 Glucose (Glucose 40% Gel) UD PRN PO 07/20/16 00:30 08/19/16 00:29 Glucose (Glucose Chew Tab) 1 tabs UD PRN PO 07/20/16 00:30 08/19/16 00:29 Dextrose (Dextrose 50% 50ML Syringe) 50 ml UD PRN IV 07/20/16 00:30 08/19/16 00:29 Glucagon 1 mg 1 mg UD PRN SQ 07/20/16 00:30 08/19/16 00:29 Ceftriaxone Sodium 2000 mg/ Dextrose 70 ml @ 100 mls/hr Q24H IV 07/21/16 12:00 07/31/16 11:59 07/21/16 15:07 100 MLS/HR Potassium Chloride 20 meq/ Dextrose 1,010 ml @ 150 mls/hr Q6H44M IV 07/21/16 19:00 08/20/16 18:59 Potassium Chloride/Prmx (Kcl 10 Meq / Wtr/Premixed Water) 100 ml @ 100 mls/hr 1730,1830 IV 07/21/16 17:30 07/21/16 20:00 07/21/16 17:32 100 MLS/HR Objective Vital Signs Date Time Temp Pulse Resp B/P Pulse Ox O2 Delivery O2 Flow Rate FiO2 07/21/16 15:44 37.7 83 20 103/65 94 Nasal Cannula 2.0 07/21/16 12:27 36.9 86 18 112/66 91 07/21/16 07:30 36.8 87 18 118/62 97 07/21/16 04:23 37.0 84 22 109/63 91 07/21/16 04:00 Nasal Cannula 3.0 07/21/16 00:27 36.8 89 22 124/73 97 07/21/16 00:00 Nasal Cannula 3.0 07/20/16 20:00 Nasal Cannula 3.0 Physical Exam General Appearance: no apparent distress Eyes: normal inspection, PERRL, EOMI ENT: normal ENT inspection, hearing grossly normal Neck: supple Respiratory/Chest: chest non-tender, lungs clear, normal breath sounds, no respiratory distress Cardiovascular: regular rate, rhythm, no edema, no gallop Abdomen: normal bowel sounds, non tender, soft, no organomegaly Extremities: normal range of motion Neurologic/Psychiatric: + pertinent finding (un able to evaluate, very confused , mumbles with one or two words, did not follow commands) Skin: normal color, warm/dry, no rash Laboratory Results Last 24 Hours Test 07/20/16 19:45 07/20/16 20:00 07/20/16 20:22 07/20/16 21:31 Venous Blood pH 7.39 Sodium Level 155 mmol/L Potassium Level 3.5 mmol/L Chloride Level 121 mmol/L Carbon Dioxide Level 23 mmol/L Anion Gap 11.0 mmol/L Blood Urea Nitrogen 52 mg/dl Creatinine 1.60 mg/dl Est Creatinine Clear Calc Drug Dose 49.2 ml/min Estimated GFR () 50.9 Estimated GFR (Non- 43.9 BUN/Creatinine Ratio 32.4 Random Glucose 190 mg/dl Calcium Level 7.7 mg/dl Phosphorus Level 2.2 mg/dl Magnesium Level 2.6 mg/dl Albumin 2.6 gm/dl Urine Osmolality 647 mOms/kg Bedside Glucose 178 mg/dl 139 mg/dl Test 07/20/16 22:27 07/21/16 00:20 07/21/16 00:41 07/21/16 01:02 Bedside Glucose 128 mg/dl 101 mg/dl 98 mg/dl Venous Blood pH 7.39 Sodium Level 155 mmol/L Potassium Level 3.2 mmol/L Chloride Level 119 mmol/L Carbon Dioxide Level 24 mmol/L Anion Gap 12.0 mmol/L Blood Urea Nitrogen 40 mg/dl Creatinine 1.60 mg/dl Est Creatinine Clear Calc Drug Dose 49.2 ml/min Estimated GFR () 50.9 Estimated GFR (Non- 43.9 BUN/Creatinine Ratio 24.9 Random Glucose 89 mg/dl Calcium Level 7.9 mg/dl Phosphorus Level 2.6 mg/dl Magnesium Level 2.5 mg/dl Test 07/21/16 01:18 07/21/16 02:05 07/21/16 02:55 07/21/16 04:02 Bedside Glucose 99 mg/dl 112 mg/dl 156 mg/dl 174 mg/dl Test 07/21/16 05:02 07/21/16 05:54 07/21/16 06:14 07/21/16 06:48 Bedside Glucose 174 mg/dl 187 mg/dl 194 mg/dl White Blood Count 14.87 K/uL Red Blood Count 2.71 M/uL Hemoglobin 7.6 g/dL Hematocrit 23.0 % Mean Corpuscular Volume 84.9 fL Mean Corpuscular Hemoglobin 28.0 pg Mean Corpuscular Hemoglobin Concent 33.0 g/dl Platelet Count 147 K/uL Mean Platelet Volume 9.4 fL Neutrophils (%) (Auto) 79.0 % Lymphocytes (%) (Auto) 13.3 % Monocytes (%) (Auto) 6.9 % Eosinophils (%) (Auto) 0.1 % Basophils (%) (Auto) 0.1 % Neutrophils # (Auto) 11.75 K/uL Lymphocytes # (Auto) 1.98 K/uL Monocytes # (Auto) 1.03 K/uL Eosinophils # (Auto) 0.01 K/uL Basophils # (Auto) 0.01 K/uL RDW Standard Deviation 45.9 fL RDW Coefficient of Variation 14.9 % Immature Granulocyte % (Auto) 0.6 % Immature Granulocyte # (Auto) 0.09 K/uL Nucleated RBC Absolute Count (auto) 0.16 K/uL Nucleated Red Blood Cells % 1.1 % Polychromasia 1+ Sodium Level 149 mmol/L Potassium Level 2.9 mmol/L Chloride Level 114 mmol/L Carbon Dioxide Level 25 mmol/L Anion Gap 10.0 mmol/L Blood Urea Nitrogen 32 mg/dl Creatinine 1.50 mg/dl Est Creatinine Clear Calc Drug Dose 52.5 ml/min Estimated GFR () 55.0 Estimated GFR (Non- 47.5 BUN/Creatinine Ratio 21.2 Random Glucose 192 mg/dl Calcium Level 7.4 mg/dl Phosphorus Level 2.1 mg/dl Magnesium Level 2.3 mg/dl Total Bilirubin 0.3 mg/dl Aspartate Amino Transf (AST/SGOT) 13 U/L Alanine Aminotransferase (ALT/SGPT) 13 U/L Alkaline Phosphatase 44 U/L Total Protein 5.3 gm/dl Albumin 2.7 gm/dl Globulin 2.6 gm/dl Albumin/Globulin Ratio 1.0 Test 07/21/16 08:06 07/21/16 08:57 07/21/16 09:42 07/21/16 10:10 Bedside Glucose 149 mg/dl 123 mg/dl 136 mg/dl 150 mg/dl Test 07/21/16 11:19 07/21/16 12:00 07/21/16 12:48 07/21/16 14:06 Bedside Glucose 206 mg/dl 223 mg/dl 224 mg/dl Sodium Level 145 mmol/L Potassium Level 3.3 mmol/L Chloride Level 111 mmol/L Carbon Dioxide Level 22 mmol/L Anion Gap 12.0 mmol/L Blood Urea Nitrogen 21 mg/dl Creatinine 1.30 mg/dl Est Creatinine Clear Calc Drug Dose 60.5 ml/min Estimated GFR () 65.4 Estimated GFR (Non- 56.5 BUN/Creatinine Ratio 15.9 Random Glucose 198 mg/dl Calcium Level 7.3 mg/dl Phosphorus Level 3.0 mg/dl Albumin 2.7 gm/dl Test 07/21/16 15:05 07/21/16 15:51 07/21/16 16:15 07/21/16 17:00 Bedside Glucose 212 mg/dl 195 mg/dl 170 mg/dl Stool Occult Blood POSITIVE Test 07/21/16 19:00 Assessment and Plan 65 years old man with PMHx of schizoaffective disorder, depression, GERD, coronary artery disease, and previous stroke, who presents from the [facility] with altered mental status and hyperglycemia DKA: started on insulin drip, BS controlled now, continue insulin drip only because he is on D5W at 150cc/hr, can be transitioned if D5W stop UTI POA, Cx grew sensitive E coli, Abx switched to CTXN Severe hypernatremia, continue D5W infusion, increased by Dr. Lloyd to150, follow up sodium level, last level is 145 (improving) Metabolic encephalopathy secondary to above Severe anemia, likely GI bleed (Hx of GI bleed in the past , refused colonoscopy ) continue holding ASA/Plavix, S/P pRBCs, repeat CBC positive melena and occult blood in stool called and left a message for his next of kin, Marcie Jaramillo at [phone] to call back started PPI drip after one dose of pepcid Schizoaffective disorder - Will hold PO home meds: Keppra, Ativan, Seroquel, Effexor, Gabapentin - Receives monthly haloperidol decanoate, will hold daily haloperidol for now SCDs DO NOT RESUSCITATE / DO NOT INTUBATE *REFER TO POL FOR FURTHER DETAILS*
[2016-07-21] MEDS ORDERED: FAMOTIDINE IV INJ 20 MG in DEXTROSE 5% 100ML 100 ML IV ONE (20:00)
[2016-07-21] MEDS ORDERED: PANTOprazole INJ 80 MG in DEXTROSE 5% 100ML IV ONE (20:30)
[2016-07-21] MEDS: PANTOprazole INJ 40 MG in DEXTROSE 5% 100ML IV SCH (21:32)
[2016-07-21 21:51] LABS: BUN/CREATININE RATIO 13.7 (10-20); CALCIUM 7.5 mg/dl (8.5-10.1); CREATININE 1.1 mg/dl (0.60-1.40); POTASSIUM 3.2 mmol/L (3.5-5.1)
[2016-07-21 21:58] LABS: PHOSPHORUS 2.4 mg/dl (2.5-4.9)
[2016-07-21] MEDS ORDERED: POTASSIUM CHLR 10 MEQ / WTR 10 MEQ in PREMIXED WATER 100 ML IV SCH (23:45)
[2016-07-22] VITALS (7 sets, daily range): BP systolic 118–156; BP diastolic 64–90; PULSE 58–97; TEMP 36.8–37.8; O2SAT 90–97
[2016-07-22] MEDS: POTASSIUM CHLORIDE INJ 20 MEQ in DEXTROSE 5% 1000ML 1,000 ML IV SCH ×4 (01:59→21:56)
[2016-07-22] MEDS: PANTOprazole INJ 40 MG in DEXTROSE 5% 100ML IV SCH ×2 (03:16→08:43)
[2016-07-22 05:34] LABS: BASO % 0.1 %; BASO ABS # 0.01 K/uL (0-0.2); EOS % 0.5 %; HEMATOCRIT 22.9 % (42-52); IG% 0.4 %; LYMPH % 16.7 %; LYMPH ABS # 2.01 K/uL (1.2-3.4); MEAN CELL VOLUME 83.3 fL (80-100); MEAN CORPUSCULAR HGB CONC 33.6 g/dl (32-36); MEAN PLATELET VOLUME 9.5 fL (7.4-10.4); MONO % 7.6 %; NEUT % 74.7 %; PLATELET COUNT 165 K/uL (130-400); RED BLOOD COUNT 2.75 M/uL (4.7-6.1); WHITE BLOOD COUNT 12.05 K/uL (4.8-10.8)
[2016-07-22 06:01] LABS: ALB/GLOB RATIO 0.9 (0.9-2); BUN/CREATININE RATIO 10.2 (10-20); CALCIUM 7.4 mg/dl (8.5-10.1); CREATININE 1.1 mg/dl (0.60-1.40); PHOSPHORUS 3.4 mg/dl (2.5-4.9); POTASSIUM 3.9 mmol/L (3.5-5.1)
[2016-07-22 06:08] LABS: COMPLETE YES; POLYCHROMASIA 1+
[2016-07-22] MEDS: INSULIN ASPART 100 UNITS/ML 3 ML PEN SC SCH ×4 (08:42→20:00)
[2016-07-22] MEDS ORDERED: INSULIN GLARGINE SOLOSTAR 100 UNITS/ML 3 ML PEN SC SCH (09:30)
[2016-07-22] MEDS ORDERED: TPN/PPN CONSULT PHARMACY PRN (09:48)
[2016-07-22] MEDS ORDERED: [UNRECOGNIZED DRUG - REMARK] ONE (10:00)
--- NOTE | 2016-07-22 10:38 | Nephrology Progress Note ---
Nephrology Progress Note Date of Service Jul 22, 2016. Chief Complaint Hypernatremia Subjective No acute events overnight. Reportedly more awake per nursing report. Mr. Errol Hinojosa was sleeping during my evaluation this morning. He was comfortable and did open eyes to voice. He did not answer questions but this also may be due to language barrier. I discussed the plan of care with Dr. Rogelio Gonsales who has been in contact with the patient's POA. Current plan to start temporary parental nutrition. No plan for enteral feeding at this time with hopes that patient will regain strength to resume again taking meals PO with assist. Aggressive potassium supplementation provided overnight. Review of Systems A complete review of systems was performed. Pertinent positives are noted above. All other systems are negative. Vital Signs Last 8 Hrs Date Time Temp Pulse Resp B/P Pulse Ox O2 Delivery O2 Flow Rate FiO2 07/22/16 08:04 37.2 94 22 123/72 90 Room Air 07/22/16 04:00 Room Air 07/22/16 04:00 37.8 96 24 123/79 97 Room Air I & O 24-Hour Column 07/22/16 08:00 Intake Total 5326 ml Output Total 4375 ml Balance 951 ml Last Recorded Weight Weight (Kilograms): 78.600 Physical Exam General Appearance: WD/WN, no apparent distress Head: normocephalic, atraumatic Eyes: normal inspection, sclerae normal ENT: normal ENT inspection, pharynx normal Neck: supple, no JVD Respiratory/Chest: lungs clear, no respiratory distress, no accessory muscle use Cardiovascular: regular rate, rhythm, no gallop Abdomen/GI: non tender, soft Genitourinary - Male: + pertinent finding (Rod draining yellow urine) Extremities/Musculoskelatal: normal inspection, no pedal edema Neurologic/Psych: + pertinent finding (not answering questions appropriately) Family History Patient reports no known family medical history. Social History Drug Use: none Marital Status: Housing Status: care home Occupation: retired Laboratory Results Past 24 Hours 07/22/16 05:24 Red Blood Count 2.75, Mean Corpuscular Volume 83.3, Mean Corpuscular Hemoglobin 28.0, Mean Corpuscular Hemoglobin Concent 33.6, Mean Platelet Volume 9.5, Neutrophils (%) (Auto) 74.7, Lymphocytes (%) (Auto) 16.7, Monocytes (%) (Auto) 7.6, Eosinophils (%) (Auto) 0.5, Basophils (%) (Auto) 0.1, Neutrophils # (Auto) 9.00, Lymphocytes # (Auto) 2.01, Monocytes # (Auto) 0.92, Eosinophils # (Auto) 0.06, Basophils # (Auto) 0.01 07/21/16 12:00 07/21/16 20:55 07/22/16 05:24 Test 07/21/16 11:19 07/21/16 12:00 07/21/16 12:48 07/21/16 14:06 Bedside Glucose 206 mg/dl (70-99) 223 mg/dl (70-99) 224 mg/dl (70-99) Anion Gap 12.0 mmol/L (3-11) Est Creatinine Clear Calc Drug Dose 60.5 ml/min Estimated GFR () 65.4 Estimated GFR (Non- 56.5 BUN/Creatinine Ratio 15.9 (10-20) Calcium Level 7.3 mg/dl (8.5-10.1) Phosphorus Level 3.0 mg/dl (2.5-4.9) Albumin 2.7 gm/dl (3.4-5.0) Test 07/21/16 15:05 07/21/16 15:51 07/21/16 16:15 07/21/16 17:00 Bedside Glucose 212 mg/dl (70-99) 195 mg/dl (70-99) 170 mg/dl (70-99) Stool Occult Blood POSITIVE (NEGATIVE) Test 07/21/16 19:17 07/21/16 19:57 07/21/16 20:55 07/21/16 21:06 Bedside Glucose 132 mg/dl (70-99) 147 mg/dl (70-99) 170 mg/dl (70-99) Anion Gap 13.0 mmol/L (3-11) Est Creatinine Clear Calc Drug Dose 71.5 ml/min Estimated GFR () 80.1 Estimated GFR (Non- 69.1 BUN/Creatinine Ratio 13.7 (10-20) Calcium Level 7.5 mg/dl (8.5-10.1) Phosphorus Level 2.4 mg/dl (2.5-4.9) Albumin 2.5 gm/dl (3.4-5.0) Test 07/21/16 22:14 07/21/16 23:07 07/22/16 00:05 07/22/16 02:16 Bedside Glucose 187 mg/dl (70-99) 195 mg/dl (70-99) 137 mg/dl (70-99) 135 mg/dl (70-99) Test 07/22/16 05:24 07/22/16 07:37 07/22/16 08:24 White Blood Count 12.05 K/uL (4.8-10.8) Red Blood Count 2.75 M/uL (4.7-6.1) Hemoglobin 7.7 g/dL (14.0-18.0) Hematocrit 22.9 % (42-52) Mean Corpuscular Volume 83.3 fL (80-100) Mean Corpuscular Hemoglobin 28.0 pg (25-34) Mean Corpuscular Hemoglobin Concent 33.6 g/dl (32-36) Platelet Count 165 K/uL (130-400) Mean Platelet Volume 9.5 fL (7.4-10.4) Neutrophils (%) (Auto) 74.7 % Lymphocytes (%) (Auto) 16.7 % Monocytes (%) (Auto) 7.6 % Eosinophils (%) (Auto) 0.5 % Basophils (%) (Auto) 0.1 % Neutrophils # (Auto) 9.00 K/uL (1.4-6.5) Lymphocytes # (Auto) 2.01 K/uL (1.2-3.4) Monocytes # (Auto) 0.92 K/uL (0.11-0.59) Eosinophils # (Auto) 0.06 K/uL (0-0.5) Basophils # (Auto) 0.01 K/uL (0-0.2) RDW Standard Deviation 43.9 fL (36.4-46.3) RDW Coefficient of Variation 14.5 % (11.5-14.5) Immature Granulocyte % (Auto) 0.4 % Immature Granulocyte # (Auto) 0.05 K/uL (0.00-0.02) Polychromasia 1+ Venous Blood pH 7.52 (7.36-7.41) Anion Gap 9.0 mmol/L (3-11) Est Creatinine Clear Calc Drug Dose 71.5 ml/min Estimated GFR () 80.1 Estimated GFR (Non- 69.1 BUN/Creatinine Ratio 10.2 (10-20) Lactic Acid Level 1.5 mmol/L (0.4-2.0) Calcium Level 7.4 mg/dl (8.5-10.1) Phosphorus Level 3.4 mg/dl (2.5-4.9) Magnesium Level 2.0 mg/dl (1.8-2.4) Total Bilirubin 0.5 mg/dl (0.2-1) Aspartate Amino Transf (AST/SGOT) 18 U/L (15-37) Alanine Aminotransferase (ALT/SGPT) 15 U/L (12-78) Alkaline Phosphatase 47 U/L (45-117) Total Protein 5.4 gm/dl (6.4-8.2) Albumin 2.6 gm/dl (3.4-5.0) Globulin 2.8 gm/dl (2.5-4.0) Albumin/Globulin Ratio 0.9 (0.9-2) Bedside Glucose 198 mg/dl (70-99) 209 mg/dl (70-99) Allergies Coded Allergies: No Known Allergies (Unverified , 07/19/16) Medications Current Inpatient Medications Medications (Trade) Dose Ordered Sig/Angel Route Start Time Stop Time Status Last Admin Dose Admin Ondansetron HCl (Zofran Inj) 4 mg Q6H PRN IV 07/19/16 23:15 08/18/16 23:14 Morphine Sulfate (MoRPHine SULFATE INJ) 2 mg Q30M PRN IV 07/19/16 23:15 08/02/16 23:14 Haloperidol Lactate (Haldol Inj) 2 mg Q12 PRN IM 07/20/16 00:00 08/19/16 00:00 07/21/16 15:07 2 MG Miscellaneous Information (Consult Glycemic Management Pharmacy) 1 ea UD PRN N/A 07/20/16 00:30 08/19/16 00:29 Lorazepam (Ativan Inj) 0.5 mg Q4H PRN IV 07/20/16 00:15 08/19/16 00:14 07/21/16 22:57 0.5 MG Glucose (Glucose 40% Gel) UD PRN PO 07/20/16 00:30 08/19/16 00:29 Glucose (Glucose Chew Tab) 1 tabs UD PRN PO 07/20/16 00:30 08/19/16 00:29 Dextrose (Dextrose 50% 50ML Syringe) 50 ml UD PRN IV 07/20/16 00:30 08/19/16 00:29 Glucagon 1 mg 1 mg UD PRN SQ 07/20/16 00:30 08/19/16 00:29 Ceftriaxone Sodium 2000 mg/ Dextrose 70 ml @ 100 mls/hr Q24H IV 07/21/16 12:00 07/31/16 11:59 07/21/16 15:07 100 MLS/HR Potassium Chloride 20 meq/ Dextrose 1,010 ml @ 150 mls/hr Q6H44M IV 07/21/16 19:00 08/20/16 18:59 07/22/16 08:42 150 MLS/HR Pantoprazole Sodium/Dextrose (Protonix Inj/D5 100ml) 100 ml @ 20 mls/hr Q5H IV 07/21/16 20:45 08/20/16 20:44 07/22/16 08:43 20 MLS/HR Insulin Glargine (Lantus Solostar Pen) 20 unit QAM SC 07/22/16 09:30 08/21/16 09:29 07/22/16 09:49 20 UNIT Insulin Glargine (Lantus Solostar Pen) 0 UNITS FOR BSG 150MG... QPM SC 07/22/16 21:00 08/21/16 20:59 Insulin Aspart (novoLOG ASPART) SLIDING SCALE Q4H SC 07/22/16 12:00 08/21/16 11:59 Miscellaneous Information (Pharmacy Tpn/ Ppn Consult Active) 1 ea UD PRN N/A 07/22/16 09:48 08/21/16 09:47 Impression (1) Hypernatremia (2) Hyperglycemia (3) Hyperosmolality (4) Acute encephalopathy (5) Dementia (6) Anemia (7) Acute renal failure Mr. Errol Hinojosa is a 65-year old male with acute encephalopathy superimposed on dementia. He presented with notable anemia and a significant hyperosmolar state. Hemoglobin stable following PRBC x 3 units transfusion. Hyperglycemia controlled with insulin gtt while on D5 infusion. Hypernatremia corrected appropriately with IVF. Patient received aggressive potassium supplementation while on insulin gtt over past 24 hours. Patient clinically improving. Presentation suggests that patient has not had access to adequate free water or insulin and that nutritional status very poor notably with hypoalbuminemia and hypokalemia. Baseline dependent. Goals of care at this time do not consist of [facility] enteral feeding tube but report that POA hopes patient will regain enough strength to resume oral intake. He remains unable to take PO at this time. PICC line to be placed. CORY was consistent with prerenal azotemia in the setting of anemia and hyperglycemic state. Creatinine continues to show signs of improvement. Medications are appropriately dosed for renal function. Recommendations CORY: -- Prerenal and related to hyperosmolar state -- Volume status appropriate at this time Hypokalemia: -- Repeat metabolic profile this afternoon Hypernatremia: -- Correcting appropriately -- TPN sodium slightly hypotonic -- Repeat metabolic profile this afternoon Hypophosphatemia: -- Improved with IV replacement -- Continue to monitor serum phosphate level
--- NOTE | 2016-07-22 10:57 | Progress Note ---
Subjective Date of Service: Jul 22, 2016. Subjective Pt evaluation today including: conversation w/ patient, physical exam, chart review, lab review, conversation w/ process consultant (Dr. Lloyd) Problem List Medical Problems: (1) Acute renal failure Status: Acute (2) GI bleed Status: Acute (3) Left hip pain Status: Acute (4) Sepsis Status: Acute (5) Status post fall Status: Acute (6) UTI (urinary tract infection) Status: Acute Review of Systems unobtainable due to change in mental status he was able to deny any pain Objective Vital Signs Date Time Temp Pulse Resp B/P Pulse Ox O2 Delivery O2 Flow Rate FiO2 07/22/16 08:04 37.2 94 22 123/72 90 Room Air 07/22/16 04:00 Room Air 07/22/16 04:00 37.8 96 24 123/79 97 Room Air 07/22/16 00:00 Room Air 07/21/16 23:04 37.3 90 26 125/75 95 Room Air 07/21/16 20:00 Room Air 07/21/16 19:20 36.6 82 20 123/70 95 Room Air 07/21/16 16:00 Nasal Cannula 2.0 07/21/16 15:44 37.7 83 20 103/65 94 Nasal Cannula 2.0 07/21/16 12:27 36.9 86 18 112/66 91 07/21/16 12:00 Nasal Cannula 2.0 Physical Exam General Appearance: no apparent distress Eyes: normal inspection, PERRL, EOMI ENT: normal ENT inspection, hearing grossly normal Neck: supple Respiratory/Chest: chest non-tender, lungs clear, normal breath sounds, no respiratory distress, no accessory muscle use Cardiovascular: regular rate, rhythm, no edema, no gallop, no JVD, no murmur Abdomen: normal bowel sounds, non tender, soft, no organomegaly, no pulsatile mass Extremities: normal range of motion, non-tender, normal inspection, no pedal edema, no calf tenderness Neurologic/Psychiatric: + disoriented, + pertinent finding (very hard to examine giving his level of confusion, not following commands, moves all extrimities) Skin: normal color, warm/dry, no rash Laboratory Results Last 24 Hours Test 07/21/16 11:19 07/21/16 12:00 07/21/16 12:48 07/21/16 14:06 Bedside Glucose 206 mg/dl 223 mg/dl 224 mg/dl Sodium Level 145 mmol/L Potassium Level 3.3 mmol/L Chloride Level 111 mmol/L Carbon Dioxide Level 22 mmol/L Anion Gap 12.0 mmol/L Blood Urea Nitrogen 21 mg/dl Creatinine 1.30 mg/dl Est Creatinine Clear Calc Drug Dose 60.5 ml/min Estimated GFR () 65.4 Estimated GFR (Non- 56.5 BUN/Creatinine Ratio 15.9 Random Glucose 198 mg/dl Calcium Level 7.3 mg/dl Phosphorus Level 3.0 mg/dl Albumin 2.7 gm/dl Test 07/21/16 15:05 07/21/16 15:51 07/21/16 16:15 07/21/16 17:00 Bedside Glucose 212 mg/dl 195 mg/dl 170 mg/dl Stool Occult Blood POSITIVE Test 07/21/16 19:17 07/21/16 19:57 07/21/16 20:55 07/21/16 21:06 Bedside Glucose 132 mg/dl 147 mg/dl 170 mg/dl Sodium Level 143 mmol/L Potassium Level 3.2 mmol/L Chloride Level 108 mmol/L Carbon Dioxide Level 22 mmol/L Anion Gap 13.0 mmol/L Blood Urea Nitrogen 15 mg/dl Creatinine 1.10 mg/dl Est Creatinine Clear Calc Drug Dose 71.5 ml/min Estimated GFR () 80.1 Estimated GFR (Non- 69.1 BUN/Creatinine Ratio 13.7 Random Glucose 162 mg/dl Calcium Level 7.5 mg/dl Phosphorus Level 2.4 mg/dl Albumin 2.5 gm/dl Test 07/21/16 22:14 07/21/16 23:07 07/22/16 00:05 07/22/16 02:16 Bedside Glucose 187 mg/dl 195 mg/dl 137 mg/dl 135 mg/dl Test 07/22/16 05:24 07/22/16 07:37 07/22/16 08:24 White Blood Count 12.05 K/uL Red Blood Count 2.75 M/uL Hemoglobin 7.7 g/dL Hematocrit 22.9 % Mean Corpuscular Volume 83.3 fL Mean Corpuscular Hemoglobin 28.0 pg Mean Corpuscular Hemoglobin Concent 33.6 g/dl Platelet Count 165 K/uL Mean Platelet Volume 9.5 fL Neutrophils (%) (Auto) 74.7 % Lymphocytes (%) (Auto) 16.7 % Monocytes (%) (Auto) 7.6 % Eosinophils (%) (Auto) 0.5 % Basophils (%) (Auto) 0.1 % Neutrophils # (Auto) 9.00 K/uL Lymphocytes # (Auto) 2.01 K/uL Monocytes # (Auto) 0.92 K/uL Eosinophils # (Auto) 0.06 K/uL Basophils # (Auto) 0.01 K/uL RDW Standard Deviation 43.9 fL RDW Coefficient of Variation 14.5 % Immature Granulocyte % (Auto) 0.4 % Immature Granulocyte # (Auto) 0.05 K/uL Polychromasia 1+ Venous Blood pH 7.52 Sodium Level 144 mmol/L Potassium Level 3.9 mmol/L Chloride Level 111 mmol/L Carbon Dioxide Level 24 mmol/L Anion Gap 9.0 mmol/L Blood Urea Nitrogen 11 mg/dl Creatinine 1.10 mg/dl Est Creatinine Clear Calc Drug Dose 71.5 ml/min Estimated GFR () 80.1 Estimated GFR (Non- 69.1 BUN/Creatinine Ratio 10.2 Random Glucose 198 mg/dl Lactic Acid Level 1.5 mmol/L Calcium Level 7.4 mg/dl Phosphorus Level 3.4 mg/dl Magnesium Level 2.0 mg/dl Total Bilirubin 0.5 mg/dl Aspartate Amino Transf (AST/SGOT) 18 U/L Alanine Aminotransferase (ALT/SGPT) 15 U/L Alkaline Phosphatase 47 U/L Total Protein 5.4 gm/dl Albumin 2.6 gm/dl Globulin 2.8 gm/dl Albumin/Globulin Ratio 0.9 Bedside Glucose 198 mg/dl 209 mg/dl Assessment and Plan 65 years old man with PMHx of schizoaffective disorder, depression, GERD, coronary artery disease, and previous stroke, who presents from the [facility] with altered mental status and hyperglycemia DKA: started on insulin drip, BS controlled now, continue insulin drip only because he is on D5W at 150cc/hr, can be transitioned if D5W stop ordered PPN, sodium content of 120-130 per liter, D/W Dr. Lloyd and with pharmacy called his POA for PICC line consent and left a message for her UTI POA, Cx grew sensitive E coli, Abx switched to CTXN Severe hypernatremia, continue D5W infusion, increased by Dr. Lloyd to150, follow up sodium level, last level is 144 (improving) Metabolic encephalopathy secondary to above, mental status is slowly improving Severe anemia, likely GI bleed (Hx of GI bleed in the past , refused colonoscopy ) continue holding ASA/Plavix, S/P pRBCs, repeat CBC positive melena and occult blood in stool spoke yesterday with his POA, Marcie Jaramillo at [phone], she stated that he had an EGD in PCU when he had a similar bleeding before, He refused colonoscopy, she leaned towards conservativ management with PPI and no procedures started PPI drip after one dose of pepcid Schizoaffective disorder - Will hold PO home meds: Keppra, Ativan, Seroquel, Effexor, Gabapentin, restart when he is able to swallow - Receives monthly haloperidol decanoate, will hold daily haloperidol for now SCDs DO NOT RESUSCITATE / DO NOT INTUBATE *REFER TO TIM FOR FURTHER DETAILS*
[2016-07-22] MEDS: CEFTRIAXONE SOD INJ 2,000 MG in DEXTROSE 5% 50ML 50 ML IV SCH (12:00)
[2016-07-22] MEDS ORDERED: INFLUENZA VIRUS QUAD VACCINE 0.5 ML SYR IM. ONE (13:45)
[2016-07-22] MEDS ORDERED: PNEUMOCOCCAL POLYSACCHARIDES 25 MCG/0.5 ML VIAL/SYR IM. ONE (13:45)
[2016-07-22] MEDS ORDERED: PNEUMOCOCCAL ADMINISTRATION CHARGE ONE (13:45)
[2016-07-22] MEDS ORDERED: INFLUENZA ADMINISTRATION CHARGE ONE (13:45)
--- NOTE | 2016-07-22 15:59 | Pharmacy Progress Note ---
Glycemic Control: Progress Nt Date of Service Jul 22, 2016. Scope Glycemic Pharmacist consulted by Dr. Link on 07/20/16 for glycemic control and to write orders per [facility] inpatient glycemic control protocol. Objective Accuchecks BSG (last 24hrs): Test 07/21/16 15:51 07/21/16 17:00 07/21/16 19:17 07/21/16 19:57 Bedside Glucose 195 mg/dl (70-99) 170 mg/dl (70-99) 132 mg/dl (70-99) 147 mg/dl (70-99) Test 07/21/16 20:55 07/21/16 21:06 07/21/16 22:14 07/21/16 23:07 Random Glucose 162 mg/dl (70-99) Bedside Glucose 170 mg/dl (70-99) 187 mg/dl (70-99) 195 mg/dl (70-99) Test 07/22/16 00:05 07/22/16 02:16 07/22/16 05:24 07/22/16 07:37 Bedside Glucose 137 mg/dl (70-99) 135 mg/dl (70-99) 198 mg/dl (70-99) Random Glucose 198 mg/dl (70-99) Test 07/22/16 08:24 07/22/16 11:08 07/22/16 14:50 Bedside Glucose 209 mg/dl (70-99) 208 mg/dl (70-99) 213 mg/dl (70-99) Laboratory Data (last 24hrs) Test 07/21/16 20:55 07/22/16 05:24 Anion Gap 13.0 mmol/L 9.0 mmol/L BUN/Creatinine Ratio 13.7 10.2 Blood Urea Nitrogen 15 mg/dl 11 mg/dl Creatinine 1.10 mg/dl 1.10 mg/dl Potassium Level 3.2 mmol/L 3.9 mmol/L Sodium Level 143 mmol/L 144 mmol/L White Blood Count 12.05 K/uL Red Blood Count 2.75 M/uL Hemoglobin 7.7 g/dL Hematocrit 22.9 % Mean Corpuscular Volume 83.3 fL Mean Corpuscular Hemoglobin 28.0 pg Mean Corpuscular Hemoglobin Concent 33.6 g/dl Platelet Count 165 K/uL Mean Platelet Volume 9.5 fL Neutrophils (%) (Auto) 74.7 % Lymphocytes (%) (Auto) 16.7 % Monocytes (%) (Auto) 7.6 % Eosinophils (%) (Auto) 0.5 % Basophils (%) (Auto) 0.1 % Neutrophils # (Auto) 9.00 K/uL Lymphocytes # (Auto) 2.01 K/uL Monocytes # (Auto) 0.92 K/uL Eosinophils # (Auto) 0.06 K/uL Basophils # (Auto) 0.01 K/uL Recent Pertinent Medications Outpatient Anti-diabetic Regimen: * Lantus 10 units HS, Novolog SS * A1c -- unreliable d/t transfusion The patient is currently receiving: * Insulin gtt * Lantus 20 units daily Risk Factors for Insulin Resistance: * Infection: Urine - E.coli; on Rocephin IV * IVF: Protonix gtt (D5) --> Protonix IVP; D5 + 20 mEq of KCl at 150 ml/hr for treatment of hypernatremia * Diet: NPO several days; TPN may start 07/23 Assessment & Plan ASSESSMENT: * ADA & AACE recommend a goal blood sugar range 140-180 mg/dl for the majority of critically ill & non-critically ill patients. However, more stringent targets may be selected in individual cases. * Patient transitioned off insulin gtt this morning to SQ insulin regimen of Lantus + Novolog. * Insulin gtt rate was running at an average of 1.4 - 2.3 units/hr. * Pt is NPO, however, receiving glucose from IV fluids. * Will initiate a DM regimen based upon current insulin needs and weight based dosing. PLAN FOR INPATIENT GLYCEMIC CONTROL: * Lantus 20 units qAM * Lantus qPM according to scale: * 0 units for BSG 100 mg/dl and below * 10 units for BSG 101-150 mg/dl * 20 units for BSG 151 and greater * Novolog [id number] * Set correction factor to 20 mg/dl/unit * Set carb ratio to 1 unit per 8 grams CHO consumed (however, pt is NPO) * Continue goal range of Low 140 mg/dL - High 180 mg/dL * Please note that the plan above was derived based on current level of insulin resistance and hospital stress. These recommendations are appropriate for inpatient admission only. Plan of care upon discharge will need to be reassessed to avoid potential outpatient hypo/hyperglycemia. Thank you.
[2016-07-22] MEDS: LORAZEPAM 2 MG/ML 1 ML VIAL IV PRN ×2 (17:38→21:52)
[2016-07-22 18:13] LABS: BUN/CREATININE RATIO 8.3 (10-20); CALCIUM 7.9 mg/dl (8.5-10.1); CREATININE 1.2 mg/dl (0.60-1.40); POTASSIUM 3.9 mmol/L (3.5-5.1)
[2016-07-22] MEDS: INSULIN GLARGINE SOLOSTAR 100 UNITS/ML 3 ML PEN SC SCH (20:56)
[2016-07-22] MEDS: PANTOprazole INJ 40 MG in SYRINGE 0 ML IV SCH (20:58)
[2016-07-22] MEDS: MoRPHine SULFATE 2 MG/ML CARP IV PRN (21:27)
[2016-07-22] MEDS: HALOPERIDOL LACTATE 5 MG/ML 1 ML VIAL IM PRN (22:04)
[2016-07-23] VITALS (12 sets, daily range): BP systolic 78–145; BP diastolic 46–89; PULSE 85–107; TEMP 36.3–37.8; O2SAT 93–97
[2016-07-23] MEDS: INSULIN ASPART 100 UNITS/ML 3 ML PEN SC SCH ×6 (00:55→20:29)
[2016-07-23 01:48] LABS: COD UR NEGATIVE NG/ML (CUTOFF=50); HYDROCOD UR 592 NG/ML (CUTOFF=50); HYDROMOR UR 212 NG/ML (CUTOFF=50); MORPHINE UR NEGATIVE NG/ML (CUTOFF=50); NORHYDROCODONE CONF UR 516 NG/ML (CUTOFF=50); OXYMORPH UR NEGATIVE NG/ML (CUTOFF=50)
[2016-07-23] MEDS: LORAZEPAM 2 MG/ML 1 ML VIAL IV PRN (02:24)
[2016-07-23] MEDS: ACETAMINOPHEN IV 100 ML IV PRN ×2 (03:39→13:57)
[2016-07-23] MEDS: POTASSIUM CHLORIDE INJ 20 MEQ in DEXTROSE 5% 1000ML 1,000 ML IV SCH ×2 (04:40→12:42)
[2016-07-23 07:47] LABS: BASO % 0.1 %; BASO ABS # 0.01 K/uL (0-0.2); EOS % 1.1 %; HEMATOCRIT 26.6 % (42-52); IG% 0.3 %; LYMPH % 16.7 %; LYMPH ABS # 2.17 K/uL (1.2-3.4); MEAN CELL VOLUME 83.9 fL (80-100); MEAN CORPUSCULAR HEMOGLOBIN 27.4 pg (25-34); MEAN CORPUSCULAR HGB CONC 32.7 g/dl (32-36); MEAN PLATELET VOLUME 10.1 fL (7.4-10.4); MONO % 8.6 %; NEUT % 73.2 %; PLATELET COUNT 227 K/uL (130-400); RED BLOOD COUNT 3.17 M/uL (4.7-6.1); WHITE BLOOD COUNT 12.97 K/uL (4.8-10.8)
[2016-07-23 08:18] LABS: COMPLETE YES; POLYCHROMASIA 1+
[2016-07-23 08:19] LABS: BUN/CREATININE RATIO 6.3 (10-20); CALCIUM 8.3 mg/dl (8.5-10.1); CREATININE 1.2 mg/dl (0.60-1.40); MAGNESIUM 2.3 mg/dl (1.8-2.4); POTASSIUM 4.1 mmol/L (3.5-5.1)
[2016-07-23 08:22] LABS: ALB/GLOB RATIO 0.9 (0.9-2); PHOSPHORUS 2.9 mg/dl (2.5-4.9)
[2016-07-23] MEDS: INSULIN GLARGINE SOLOSTAR 100 UNITS/ML 3 ML PEN SC SCH ×2 (08:56→20:29)
[2016-07-23] MEDS: PANTOprazole INJ 40 MG in SYRINGE 0 ML IV SCH ×2 (09:05→21:52)
--- NOTE | 2016-07-23 09:49 | Nephrology Progress Note ---
Nephrology Progress Note Date of Service Jul 23, 2016. Chief Complaint Follow up evaluation of acute kidney injury, hypernatremia and UTI Subjective Patient was seen & examined in the PCU. He was admitted with MS changes, hypernatremia, hyperkalemia and profound anemia. His baseline creatinine is unknown however creatinine was 2.6 on admission. The patient has dementia and requires halfway care. He was unable to provide any details of his history this morning. At the time of my evaluation he would awaken to voice and attend to the examiner but was nonverbal. Review of Systems Unable to obtain. Patient is nonverbal Vital Signs Last 8 Hrs Date Time Temp Pulse Resp B/P Pulse Ox O2 Delivery O2 Flow Rate FiO2 07/23/16 08:01 36.3 85 22 100/65 93 Room Air 07/23/16 04:04 37.6 91 28 145/89 96 Room Air 07/23/16 04:00 95 Room Air 07/23/16 02:55 37.8 30 I & O 24-Hour Column 07/23/16 08:00 Intake Total 3575 ml Output Total 3025 ml Balance 550 ml Last Recorded Weight Weight (Kilograms): 78.600 Physical Exam General Appearance: + thin (frail, chronically ill appearing) Head: atraumatic (temporal muscle wasting) Eyes: PERRL ENT: + pertinent finding (dry mucous membranes) Neck: no adenopathy, no JVD Respiratory/Chest: lungs clear, no respiratory distress Cardiovascular: + tachycardia Abdomen/GI: non tender (hypoactive bowel sounds) Extremities/Musculoskelatal: no pedal edema Neurologic/Psych: alert (nonverbal) Family History Patient reports no known family medical history. Social History Drug Use: none Marital Status: Housing Status: halfway Occupation: retired Laboratory Results Past 24 Hours 07/23/16 07:35 Red Blood Count 3.17, Mean Corpuscular Volume 83.9, Mean Corpuscular Hemoglobin 27.4, Mean Corpuscular Hemoglobin Concent 32.7, Mean Platelet Volume 10.1, Neutrophils (%) (Auto) 73.2, Lymphocytes (%) (Auto) 16.7, Monocytes (%) (Auto) 8.6, Eosinophils (%) (Auto) 1.1, Basophils (%) (Auto) 0.1, Neutrophils # (Auto) 9.50, Lymphocytes # (Auto) 2.17, Monocytes # (Auto) 1.11, Eosinophils # (Auto) 0.14, Basophils # (Auto) 0.01 07/22/16 17:30 07/23/16 07:35 Test 07/22/16 11:08 07/22/16 14:50 07/22/16 17:30 07/22/16 20:07 Bedside Glucose 208 mg/dl (70-99) 213 mg/dl (70-99) 169 mg/dl (70-99) Anion Gap 11.0 mmol/L (3-11) Est Creatinine Clear Calc Drug Dose 65.6 ml/min Estimated GFR () 72.1 Estimated GFR (Non- 62.2 BUN/Creatinine Ratio 8.3 (10-20) Calcium Level 7.9 mg/dl (8.5-10.1) Test 07/23/16 06:43 07/23/16 07:35 Bedside Glucose 171 mg/dl (70-99) White Blood Count 12.97 K/uL (4.8-10.8) Red Blood Count 3.17 M/uL (4.7-6.1) Hemoglobin 8.7 g/dL (14.0-18.0) Hematocrit 26.6 % (42-52) Mean Corpuscular Volume 83.9 fL (80-100) Mean Corpuscular Hemoglobin 27.4 pg (25-34) Mean Corpuscular Hemoglobin Concent 32.7 g/dl (32-36) Platelet Count 227 K/uL (130-400) Mean Platelet Volume 10.1 fL (7.4-10.4) Neutrophils (%) (Auto) 73.2 % Lymphocytes (%) (Auto) 16.7 % Monocytes (%) (Auto) 8.6 % Eosinophils (%) (Auto) 1.1 % Basophils (%) (Auto) 0.1 % Neutrophils # (Auto) 9.50 K/uL (1.4-6.5) Lymphocytes # (Auto) 2.17 K/uL (1.2-3.4) Monocytes # (Auto) 1.11 K/uL (0.11-0.59) Eosinophils # (Auto) 0.14 K/uL (0-0.5) Basophils # (Auto) 0.01 K/uL (0-0.2) RDW Standard Deviation 44.1 fL (36.4-46.3) RDW Coefficient of Variation 14.5 % (11.5-14.5) Immature Granulocyte % (Auto) 0.3 % Immature Granulocyte # (Auto) 0.04 K/uL (0.00-0.02) Nucleated RBC Absolute Count (auto) 0.03 K/uL (0-0) Nucleated Red Blood Cells % 0.3 % Polychromasia 1+ Venous Blood pH 7.43 (7.36-7.41) Anion Gap 13.0 mmol/L (3-11) Est Creatinine Clear Calc Drug Dose 65.6 ml/min Estimated GFR () 72.1 Estimated GFR (Non- 62.2 BUN/Creatinine Ratio 6.3 (10-20) Calcium Level 8.3 mg/dl (8.5-10.1) Phosphorus Level 2.9 mg/dl (2.5-4.9) Magnesium Level 2.3 mg/dl (1.8-2.4) Total Bilirubin 0.6 mg/dl (0.2-1) Aspartate Amino Transf (AST/SGOT) 19 U/L (15-37) Alanine Aminotransferase (ALT/SGPT) 18 U/L (12-78) Alkaline Phosphatase 55 U/L (45-117) Total Protein 6.3 gm/dl (6.4-8.2) Albumin 2.9 gm/dl (3.4-5.0) Globulin 3.4 gm/dl (2.5-4.0) Albumin/Globulin Ratio 0.9 (0.9-2) Allergies Coded Allergies: No Known Allergies (Unverified , 07/19/16) Medications Current Inpatient Medications Medications (Trade) Dose Ordered Sig/Angel Route Start Time Stop Time Status Last Admin Dose Admin Ondansetron HCl (Zofran Inj) 4 mg Q6H PRN IV 07/19/16 23:15 08/18/16 23:14 Morphine Sulfate (MoRPHine SULFATE INJ) 2 mg Q30M PRN IV 07/19/16 23:15 08/02/16 23:14 07/22/16 21:27 2 MG Haloperidol Lactate (Haldol Inj) 2 mg Q12 PRN IM 07/20/16 00:00 08/19/16 00:00 07/22/16 22:04 2 MG Miscellaneous Information (Consult Glycemic Management Pharmacy) 1 ea UD PRN N/A 07/20/16 00:30 08/19/16 00:29 Lorazepam (Ativan Inj) 0.5 mg Q4H PRN IV 07/20/16 00:15 08/19/16 00:14 07/23/16 02:24 0.5 MG Glucose (Glucose 40% Gel) UD PRN PO 07/20/16 00:30 08/19/16 00:29 Glucose (Glucose Chew Tab) 1 tabs UD PRN PO 07/20/16 00:30 08/19/16 00:29 Dextrose (Dextrose 50% 50ML Syringe) 50 ml UD PRN IV 07/20/16 00:30 08/19/16 00:29 Glucagon 1 mg 1 mg UD PRN SQ 07/20/16 00:30 08/19/16 00:29 Ceftriaxone Sodium 2000 mg/ Dextrose 70 ml @ 100 mls/hr Q24H IV 07/21/16 12:00 07/31/16 11:59 07/22/16 12:00 100 MLS/HR Potassium Chloride/Dextrose (KCl Inj/D5W 1000ml) 1,010 ml @ 150 mls/hr Q6H44M IV 07/21/16 19:00 08/20/16 18:59 07/23/16 04:40 150 MLS/HR Insulin Glargine (Lantus Solostar Pen) 0 UNITS FOR BSG 100MG... QPM SC 07/22/16 21:00 08/21/16 20:59 07/22/16 20:56 20 UNIT Insulin Aspart (novoLOG ASPART) SLIDING SCALE Q4H SC 07/22/16 12:00 08/21/16 11:59 07/23/16 08:55 1 UNITS Miscellaneous Information 1 ea 1 ea UD PRN N/A 07/22/16 09:48 08/21/16 09:47 Future hold Pantoprazole Sodium 40 mg/ Syringe 10 ml @ 5 mls/min BID@,21 IV 07/22/16 21:00 08/21/16 20:59 07/23/16 09:05 5 MLS/MIN Acetaminophen (Ofirmev Iv) 100 ml @ 400 mls/hr Q8H PRN IV 07/23/16 03:00 08/22/16 02:59 07/23/16 03:39 400 MLS/HR Insulin Glargine (Lantus Solostar Pen) 8 units for BSG < 110 mg... QAM SC 07/23/16 09:00 08/22/16 08:59 07/23/16 08:56 16 UNIT Impression (1) Hypernatremia (2) Hyperglycemia (3) Hyperosmolality (4) Acute encephalopathy (5) Dementia (6) Anemia (7) Acute renal failure Mr. Errol Hinojosa is a 65-year old male with acute encephalopathy superimposed on dementia. He presented with notable anemia and a significant hyperosmolar state. Hemoglobin stable following PRBC x 3 units transfusion. Hyperglycemia controlled with insulin gtt while on D5 infusion. Hypernatremia corrected appropriately with IVF. Patient received aggressive potassium supplementation while on insulin gtt over past 24 hours. Patient clinically improving. Presentation suggests that patient has not had access to adequate free water or insulin and that nutritional status very poor notably with hypoalbuminemia and hypokalemia. Baseline dependent. Goals of care at this time do not consist of fpc enteral feeding tube but report that POA hopes patient will regain enough strength to resume oral intake. He remains unable to take PO at this time. PICC line to be placed. CORY was consistent with prerenal azotemia in the setting of anemia and hyperglycemic state. Recommendations CORY: -- Resolved. Serum creatinine 1.2 this am -- Volume status appropriate at this time HYPOKALEMIA: -- Corrected. HYPERNATREMIA: -- Corrected. -- Patient requires free water w/ enteral feeding HYPOPHOSPHATEMIA: -- Corrected w/ IV replacement OTHER: -- No further nephrology evaluation needed at this time. Patient requires free water w/ enteral feeding. Will defer management to primary service. Will sign off. Please call if further assistance is needed.
[2016-07-23] MEDS: CEFTRIAXONE SOD INJ 2,000 MG in DEXTROSE 5% 50ML 50 ML IV SCH (12:42)
[2016-07-23] MEDS: HALOPERIDOL LACTATE 5 MG/ML 1 ML VIAL IM PRN (13:57)
--- NOTE | 2016-07-23 14:25 | Hospitalist Progress Note ---
Hospitalist Progress Note Date of Service Jul 23, 2016. (Sandy Newton ., CRYSTALC) Subjective Pt evaluation today including: conversation w/ patient, physical exam, chart review, lab review, review of studies, review of inpatient medication list PO Intake: Will start TPN today Voiding: menjivar catheter in place Patient sleeping upon my arrival this morning and was awakened with a gentle shake of his shoulder and spontaneously opened his eyes. Patient was nonverbal and lethargic. Unable to obtain ROS due to mental state. Additional Comments: Unable to obtain ROS due to mental status. (Sandy Newton, CRYSTALC) Objective Vital Signs Date Time Temp Pulse Resp B/P Pulse Ox O2 Delivery O2 Flow Rate FiO2 07/23/16 12:55 36.9 85 18 127/79 96 Room Air 07/23/16 12:00 Room Air 07/23/16 08:01 36.3 85 22 100/65 93 Room Air 07/23/16 08:00 Room Air 07/23/16 04:04 37.6 91 28 145/89 96 Room Air 07/23/16 04:00 95 Room Air 07/23/16 02:55 37.8 30 07/23/16 01:37 95 Room Air 07/22/16 22:53 37.6 97 24 156/90 95 Room Air 07/22/16 20:00 95 Room Air 07/22/16 19:44 37.0 87 16 121/82 95 Room Air 07/22/16 16:00 Nasal Cannula 2.0 07/22/16 15:30 37.0 77 20 148/67 94 Room Air (Sandy Newton, MANAN-C) Physical Exam General Appearance: WD/WN, no apparent distress, + pertinent finding (lethargic , did not participate in physical exam) Eyes: normal inspection, sclerae normal, + pertinent finding (exam limited by mental status) ENT: normal ENT inspection, hearing grossly normal, + pertinent finding (exam limited by mental status) Neck: supple, no JVD, trachea midline Respiratory/Chest: lungs clear, normal breath sounds, no respiratory distress Cardiovascular: regular rate, rhythm, no gallop, no murmur Abdomen: normal bowel sounds, non tender, soft Extremities: non-tender, normal inspection, no pedal edema Neurologic/Psychiatric: alert (lethargic), + pertinent finding (nonverbal, unable to assess mood or orientation) Skin: normal color, warm/dry, no rash (Sandy Newton, LADARIUS) Laboratory Results Last 24 Hours Test 07/22/16 14:50 07/22/16 17:30 07/22/16 20:07 07/23/16 06:43 Bedside Glucose 213 mg/dl 169 mg/dl 171 mg/dl Sodium Level 143 mmol/L Potassium Level 3.9 mmol/L Chloride Level 109 mmol/L Carbon Dioxide Level 23 mmol/L Anion Gap 11.0 mmol/L Blood Urea Nitrogen 10 mg/dl Creatinine 1.20 mg/dl Est Creatinine Clear Calc Drug Dose 65.6 ml/min Estimated GFR () 72.1 Estimated GFR (Non- 62.2 BUN/Creatinine Ratio 8.3 Random Glucose 158 mg/dl Calcium Level 7.9 mg/dl Test 07/23/16 07:35 07/23/16 11:26 White Blood Count 12.97 K/uL Red Blood Count 3.17 M/uL Hemoglobin 8.7 g/dL Hematocrit 26.6 % Mean Corpuscular Volume 83.9 fL Mean Corpuscular Hemoglobin 27.4 pg Mean Corpuscular Hemoglobin Concent 32.7 g/dl Platelet Count 227 K/uL Mean Platelet Volume 10.1 fL Neutrophils (%) (Auto) 73.2 % Lymphocytes (%) (Auto) 16.7 % Monocytes (%) (Auto) 8.6 % Eosinophils (%) (Auto) 1.1 % Basophils (%) (Auto) 0.1 % Neutrophils # (Auto) 9.50 K/uL Lymphocytes # (Auto) 2.17 K/uL Monocytes # (Auto) 1.11 K/uL Eosinophils # (Auto) 0.14 K/uL Basophils # (Auto) 0.01 K/uL RDW Standard Deviation 44.1 fL RDW Coefficient of Variation 14.5 % Immature Granulocyte % (Auto) 0.3 % Immature Granulocyte # (Auto) 0.04 K/uL Nucleated RBC Absolute Count (auto) 0.03 K/uL Nucleated Red Blood Cells % 0.3 % Polychromasia 1+ Venous Blood pH 7.43 Sodium Level 142 mmol/L Potassium Level 4.1 mmol/L Chloride Level 108 mmol/L Carbon Dioxide Level 21 mmol/L Anion Gap 13.0 mmol/L Blood Urea Nitrogen 8 mg/dl Creatinine 1.20 mg/dl Est Creatinine Clear Calc Drug Dose 65.6 ml/min Estimated GFR () 72.1 Estimated GFR (Non- 62.2 BUN/Creatinine Ratio 6.3 Random Glucose 171 mg/dl Calcium Level 8.3 mg/dl Phosphorus Level 2.9 mg/dl Magnesium Level 2.3 mg/dl Total Bilirubin 0.6 mg/dl Aspartate Amino Transf (AST/SGOT) 19 U/L Alanine Aminotransferase (ALT/SGPT) 18 U/L Alkaline Phosphatase 55 U/L Total Protein 6.3 gm/dl Albumin 2.9 gm/dl Globulin 3.4 gm/dl Albumin/Globulin Ratio 0.9 Bedside Glucose 187 mg/dl (Sandy Newton ., LADARIUS) Assessment and Plan 65 y/o male from [facility] with a history of schizoaffective disorder, depression, GERD, coronary artery disease, and previous stroke, who presents with altered mental status, severe anemia, and hyperglycemia. DKA--POC glucose in 400s upon arrival -Started on insulin drip, sugars controlled now, insulin drip D/C'd 07/21 -Pending swallow evaluation by TIRE FIXER -Will start TPN if unable to take PO, D/W Dr. Lloyd and with pharmacy, consent given by POA for PICC line UTI -Urine culture positive for E. coli that is resistant to fluoroquinolones -Continue Rocephin 1 gm IV qd Hypernatremia--resolved. Sodium 150 upon arrival -Sodium 142 on 07/23 -D/C D5 at 150 cc/hr. May consider adding NSS, will wait for swallow evaluation to see if TPN will be started Metabolic encephalopathy secondary to above, pt nonverbal today, could not assess mental status Severe anemia--improving. Hgb 5.1 upon arrival -GI bleed, positive occult blood in stool. H/o GI bleed in past. Refusing colonoscopy -Discussed with his POA, Marcie Jaramillo at [phone], she stated that he had an EGD in PCU when he had a similar bleeding before, He refused colonoscopy , she leaned towards conservative management with PPI and no procedures -Protonix 40 mg IV BID -Continue holding ASA/Plavix, S/P 3 units leuk-reduced RBCs, continue to monitor -Hgb 8.7 on 07/23 Schizoaffective disorder -Will hold PO home meds: Keppra, Ativan, Seroquel, Effexor, Gabapentin, restart when he is able to swallow. Pending evaluation today -Haldol 2 mg IM q12h prn agitation DVT prophylaxis -SCDs Code Status -Level V, DO NOT RESUSCITATE (Sandy Newton ., PAMarekC) Reviewed: Pt Seen/Exam by Me (Shanelle Riley, ) History Pt denies pain. Appears cold and does answer "yes" this question. He has not eaten recently. Unable to obtain full ROS due to pt's mentation. (Shanelle Riley, ) General Appearance: WD/WN, no apparent distress, other (shivering) Respiratory: normal breath sounds, no respiratory distress Cardiovascular: normal peripheral pulses, regular rate, rhythm Gastrointestinal: non tender, soft Extremities: non-tender, no pedal edema Neurologic/Psychiatric: alert (to person), other (answers yes to most questions , uncertain if this is accurate) Skin Characteristics: normal color, warm/dry (Shanelle Riley, ) Assessment/Plan Plan as outline above Pt has ongoing AMS, but uncertain how much of this is baseline Also concerning is that pt's multiple psych meds were held on admission due to AMS, but he has now been without these for several days Will restart and monitor Speech: eval done and pt found safe for pureed/thin liquids Will resume this PICC has not been placed, hopefully pt will resume PO intake and PICC/TPN can be avoided GIB: conservative care (Shanelle Riley, )
--- NOTE | 2016-07-23 15:31 | Pharmacy Progress Note ---
Glycemic Control: Progress Nt Date of Service Jul 23, 2016. Scope Glycemic Pharmacist consulted by Dr Link on 07/20/16 for glycemic control and to write orders per [facility] inpatient glycemic control protocol. Objective Accuchecks BSG (last 24hrs): Test 07/22/16 17:30 07/22/16 20:07 07/23/16 06:43 07/23/16 07:35 Random Glucose 158 mg/dl (70-99) 171 mg/dl (70-99) Bedside Glucose 169 mg/dl (70-99) 171 mg/dl (70-99) Test 07/23/16 11:26 Bedside Glucose 187 mg/dl (70-99) Laboratory Data (last 24hrs) Test 07/22/16 17:30 07/23/16 07:35 Anion Gap 11.0 mmol/L 13.0 mmol/L BUN/Creatinine Ratio 8.3 6.3 Blood Urea Nitrogen 10 mg/dl 8 mg/dl Creatinine 1.20 mg/dl 1.20 mg/dl Potassium Level 3.9 mmol/L 4.1 mmol/L Sodium Level 143 mmol/L 142 mmol/L White Blood Count 12.97 K/uL Red Blood Count 3.17 M/uL Hemoglobin 8.7 g/dL Hematocrit 26.6 % Mean Corpuscular Volume 83.9 fL Mean Corpuscular Hemoglobin 27.4 pg Mean Corpuscular Hemoglobin Concent 32.7 g/dl Platelet Count 227 K/uL Mean Platelet Volume 10.1 fL Neutrophils (%) (Auto) 73.2 % Lymphocytes (%) (Auto) 16.7 % Monocytes (%) (Auto) 8.6 % Eosinophils (%) (Auto) 1.1 % Basophils (%) (Auto) 0.1 % Neutrophils # (Auto) 9.50 K/uL Lymphocytes # (Auto) 2.17 K/uL Monocytes # (Auto) 1.11 K/uL Eosinophils # (Auto) 0.14 K/uL Basophils # (Auto) 0.01 K/uL Recent Pertinent Medications Outpatient Anti-diabetic Regimen: * Lantus 10 units SC HS * Novolog sliding scale * A1c erroneous 2nd recent PRBC infusion The patient is currently receiving: * Basal insulin: Lantus 20 units every 12 hours * Correctional Insulin: Novolog Correction per scale q4h Goal Range: Low 140 mg/dL - High 180 mg/dL Correction Factor: 20 mg/dL/unit * Prandial insulin: Per carb ratio of 1 unit per 8 grams CHO consumed Risk Factors for Insulin Resistance: * Infection: on ceftriaxone * IVF: D5 w KCl 20 mEq/L @ 150 mL/hr stopped this afternoon * Diet: NPO to T2DM/AHA today Assessment & Plan ASSESSMENT: * ADA & AACE recommend a goal blood sugar range 140-180 mg/dl for the majority of critically ill & non-critically ill patients. However, more stringent targets may be selected in individual cases. * Patient was to start TPN today, but instead swallow eval ordered. Patient switched from NPO to T2DM. * D5 w KCl 20 mEq/L @ 150 mL/hr stopped - this provided 180 g of CHO / 24 hr that was being covered by Lantus. Since patient now ordered diet and carb ratio , will decrease Lantus significantly * Will loosen carb ratio to weight-based estimate * Will change to q6h checks as patient's BSG have not been significantly elevated PLAN FOR INPATIENT GLYCEMIC CONTROL: * Basal insulin with LANTUS * 14 units SQ QAM - half for BSG < 110 mg/dL * 10 units SQ QPM - hold from BSG < 150 mg/dL. Half for BSG 151-200 mg/dL * Correctional Insulin with NOVOLOG per scale ACHS - additional check at 0200 * Goal Range: Low 140 mg/dL - High 180 mg/dL * Correction Factor: 20 mg/dL/unit * Nutritional / Prandial insulin per carb ratio of 1 unit per 10 grams CHO consumed * Please note that the plan above was derived based on current level of insulin resistance and hospital stress. These recommendations are appropriate for inpatient admission only. Plan of care upon discharge will need to be reassessed to avoid potential outpatient hypo/hyperglycemia. Thank you.
[2016-07-23 17:53] LABS: BUN/CREATININE RATIO 7.2 (10-20); CREATININE 1.2 mg/dl (0.60-1.40); POTASSIUM 3.9 mmol/L (3.5-5.1)
[2016-07-23] MEDS ORDERED: INSULIN ASPART 100 UNITS/ML 3 ML PEN SC SCH (18:00)
[2016-07-23] MEDS ORDERED: NURSING VERBAL MED ORDER ONE (18:15)
[2016-07-23] MEDS: LEVETIRACETAM 250 MG TAB PO SCH (18:39)
[2016-07-23] MEDS: RISPERIDONE 0.5 MG TAB PO SCH (18:40)
[2016-07-23] MEDS: QUETIAPINE FUMARATE 100 MG TAB PO SCH (18:40)
[2016-07-23] MEDS: DIVALPROEX SODIUM SPRINKLE 125 MG CAP PO SCH (18:40)
[2016-07-23] MEDS ORDERED: SODIUM CHLORIDE 0.9% 500ML 500 ML IV SCH (20:00)
[2016-07-24 00:45] VITALS: O2SAT 95
[2016-07-24] MEDS ORDERED: INSULIN ASPART 100 UNITS/ML 3 ML PEN SC ONE (02:00)
[2016-07-24] MEDS: HALOPERIDOL LACTATE 5 MG/ML 1 ML VIAL IM PRN ×2 (03:53→23:27)
[2016-07-24 04:56] VITALS: BP 99/68; PULSE 88; TEMP 37.4; O2SAT 96
[2016-07-24 05:59] LABS: EOS % 1.3 %; HEMATOCRIT 24.2 % (42-52); IG% 0.5 %; LYMPH % 20.7 %; LYMPH ABS # 2.23 K/uL (1.2-3.4); MEAN CELL VOLUME 82.3 fL (80-100); MEAN CORPUSCULAR HEMOGLOBIN 27.6 pg (25-34); MEAN CORPUSCULAR HGB CONC 33.5 g/dl (32-36); MONO % 8.6 %; NEUT % 68.9 %; PLATELET COUNT 228 K/uL (130-400); RED BLOOD COUNT 2.94 M/uL (4.7-6.1); WHITE BLOOD COUNT 10.78 K/uL (4.8-10.8)
[2016-07-24 06:25] LABS: COMPLETE YES; POLYCHROMASIA 1+
[2016-07-24] MEDS: INSULIN ASPART 100 UNITS/ML 3 ML PEN SC SCH ×4 (06:30→20:46)
[2016-07-24] MEDS: DIVALPROEX SODIUM SPRINKLE 125 MG CAP PO SCH ×3 (07:48→19:45)
[2016-07-24] MEDS: PANTOprazole INJ 40 MG in SYRINGE 0 ML IV SCH ×2 (07:48→19:45)
[2016-07-24] MEDS: LEVETIRACETAM 250 MG TAB PO SCH ×2 (07:48→19:46)
[2016-07-24] MEDS: QUETIAPINE FUMARATE 100 MG TAB PO SCH ×3 (07:48→19:45)
[2016-07-24] MEDS: RISPERIDONE 0.5 MG TAB PO SCH ×2 (07:49→19:45)
[2016-07-24] MEDS: VENLAFAXINE HCL XR 150 MG CAPXR PO SCH (07:49)
[2016-07-24 08:00] VITALS: O2SAT 92
[2016-07-24 08:32] VITALS: BP 123/76; PULSE 101; TEMP 37.3; O2SAT 92
--- NOTE | 2016-07-24 10:45 | Hospitalist Progress Note ---
Hospitalist Progress Note Date of Service Jul 24, 2016. (Dayanna Charles PA-C) Subjective Pt evaluation today including: conversation w/ patient, physical exam, chart review, lab review, review of studies, review of inpatient medication list Pain: Denies PO Intake: Good Voiding: no voiding problems The patient was seen and examined this morning. Pt is awake, sitting up in bed and attempts to answer my questions although his speech is very garbled. He is able to say no sometimes. He denies acute pain, chest pain, or shortness of breath. Pt follows my commands during the physical. Pt is unable to provide a complete ROS due garbled speech. Additional Comments: Unobtainable (Dayanna Charles PA-C) Objective Vital Signs Date Time Temp Pulse Resp B/P Pulse Ox O2 Delivery O2 Flow Rate FiO2 07/24/16 08:32 37.3 101 20 123/76 92 07/24/16 08:00 92 Room Air 07/24/16 04:56 37.4 88 20 99/68 96 Room Air 07/24/16 00:45 95 Room Air 07/23/16 23:46 36.9 107 24 105/65 95 Room Air 07/23/16 21:30 103/67 07/23/16 21:00 Room Air 07/23/16 20:30 89/54 07/23/16 19:30 36.7 94 22 78/46 93 Room Air 07/23/16 18:58 36.5 92 16 97 07/23/16 16:00 Room Air 07/23/16 15:41 36.5 92 16 94/65 97 Room Air 07/23/16 12:55 36.9 85 18 127/79 96 Room Air 07/23/16 12:00 Room Air (Dayanna Charles PA-C) Physical Exam General Appearance: WD/WN, + thin, + pertinent finding Eyes: + pertinent finding (opening and closing during portion of the exam) ENT: hearing grossly normal, + pertinent finding (residual food in mouth from breakfast) Neck: supple, no JVD Respiratory/Chest: lungs clear, no respiratory distress, no accessory muscle use Cardiovascular: regular rate, rhythm, + systolic murmur Abdomen: normal bowel sounds, non tender, soft Extremities: normal range of motion, no pedal edema, no calf tenderness Neurologic/Psychiatric: alert, + pertinent finding (speech is garbled, follows commands, ROS unobtainable. Not oriented to date, place or time. ) Skin: normal color, warm/dry (Dayanna Charles PA-C) Laboratory Results Last 24 Hours Test 07/23/16 11:26 07/23/16 16:31 07/23/16 17:10 07/23/16 20:05 Bedside Glucose 187 mg/dl 181 mg/dl 207 mg/dl Sodium Level 139 mmol/L Potassium Level 3.9 mmol/L Chloride Level 107 mmol/L Carbon Dioxide Level 20 mmol/L Anion Gap 12.0 mmol/L Blood Urea Nitrogen 9 mg/dl Creatinine 1.20 mg/dl Est Creatinine Clear Calc Drug Dose 65.6 ml/min Estimated GFR () 72.1 Estimated GFR (Non- 62.2 BUN/Creatinine Ratio 7.2 Random Glucose 171 mg/dl Calcium Level 8.0 mg/dl Test 07/24/16 01:56 07/24/16 05:40 07/24/16 07:11 Bedside Glucose 152 mg/dl 106 mg/dl White Blood Count 10.78 K/uL Red Blood Count 2.94 M/uL Hemoglobin 8.1 g/dL Hematocrit 24.2 % Mean Corpuscular Volume 82.3 fL Mean Corpuscular Hemoglobin 27.6 pg Mean Corpuscular Hemoglobin Concent 33.5 g/dl Platelet Count 228 K/uL Mean Platelet Volume 10.0 fL Neutrophils (%) (Auto) 68.9 % Lymphocytes (%) (Auto) 20.7 % Monocytes (%) (Auto) 8.6 % Eosinophils (%) (Auto) 1.3 % Basophils (%) (Auto) 0.0 % Neutrophils # (Auto) 7.43 K/uL Lymphocytes # (Auto) 2.23 K/uL Monocytes # (Auto) 0.93 K/uL Eosinophils # (Auto) 0.14 K/uL Basophils # (Auto) 0.00 K/uL RDW Standard Deviation 44.0 fL RDW Coefficient of Variation 14.7 % Immature Granulocyte % (Auto) 0.5 % Immature Granulocyte # (Auto) 0.05 K/uL Polychromasia 1+ (Dayanna Charles PA-C) Assessment and Plan 65 y/o male from [facility] with a history of schizoaffective disorder, depression, GERD, coronary artery disease, and previous stroke, who presents with altered mental status, severe anemia, and hyperglycemia. DKA with hyperglycemia > 400 upon admission - insulin drip D/C'd 07/21 - Pharmacy managing glucose Basal insulin with LANTUS * 14 units SQ QAM - half for BSG < 110 mg/dL * 10 units SQ QPM - hold from BSG < 150 mg/dL. Half for BSG 151-200 mg/dL * Correctional Insulin with NOVOLOG per scale ACHS - additional check at 0200 * Goal Range: Low 140 mg/dL - High 180 mg/dL * Correction Factor: 20 mg/dL/unit * Nutritional / Prandial insulin per carb ratio of 1 unit per 10 grams CHO consumed - speech evaluation completed on 07/23 and pt was able to tolerate pureed foods and thin liquids so no need for TPN at this time. If the patient needs this in the future will need to have CM coordinate with [facility] to determine if they can care for a patient with this need. Consent given by POA for PICC line but will not be placed at this time. UTI -Urine culture positive for E. coli that is resistant to fluoroquinolones -Continue Rocephin 1 gm IV qd (day #4) - can change to ceftin upon discharge to complete the course of antibiotics Hypernatremia - Na+ improved now, resolved. - Passed speech eval, continue with oral intake - follow am labs Metabolic encephalopathy - Secondary to combination of UTI and electrolyte imbalances - Improved today compared to exam from yesterday - pt alert, awake, and able to follow commands. Speech is garbled but pt is attempting to communicate. This may be due to restarting his outpatient psych meds ( had been held since admission) last night Severe anemia- -improving. Hgb 5.1 upon arrival -GI bleed, positive occult blood in stool. H/o GI bleed in past. Refusing colonoscopy: -Discussed with his POA previously by service, Marcie Jaramillo at [phone], she stated that he had an EGD in PCU when he had a similar bleeding before, He refused colonoscopy, she leaned towards conservative management with PPI and no procedures -Protonix 40 mg IV BID -Continue holding ASA/Plavix, S/P 3 units leuk-reduced PRBCs -Hgb has remained stable >8 since PRBCs were administered Schizoaffective disorder - Restarted Keppra, Ativan, Seroquel, Effexor, Gabapentin- likely to improve mental status. - Receives IM Haldol 25 mg once monthly injection as an outpatient. - Last administration unknown. - Haldol 2 mg IM q12h prn agitation DVT prophylaxis -SCDs Code Status: DNR Disposition: From [facility], return there once medically stable, bed on hold per CM. (Dayanna Charles PA-C) Reviewed: Pt Seen/Exam by Me (Shanelle Riley DO) History Nursing reports that pt has been more interactive and answering yes/no today. Following basic commands and ate breakfast. Denies pain, SOB. Agree with HPI/ROS as noted (Shanelle Riley DO) General Appearance: WD/WN, no apparent distress Respiratory: normal breath sounds, no respiratory distress Cardiovascular: normal peripheral pulses, regular rate, rhythm Gastrointestinal: non tender, soft Neurologic/Psychiatric: alert (to person), other (answers yes/no, following commands, more groggy than yesterday) Skin Characteristics: normal color, warm/dry (Shanelle Riley DO) Assessment/Plan Plan as outline above Pt has ongoing AMS, but uncertain how much of this is baseline Resumed pt's usual psych meds and pt is more interactive but more groggy Will decrease seroquel to 100mg for first two doses and keep 150mg HS Of note, pt was off of keppra for several days and on a tele monitor during this time without any seizure activity Speech: eval done and pt found safe for pureed/thin liquids Will resume this PICC has not been placed, and pt has been tolerating PO without issue, hopefully PICC/TPN can be avoided GIB: conservative care Hb is trending down, will monitor Pt may need periodic transfusions, will discuss with POA (Shanelle Riley DO)
[2016-07-24] MEDS: CEFTRIAXONE SOD INJ 2,000 MG in DEXTROSE 5% 50ML 50 ML IV SCH (11:23)
[2016-07-24] MEDS ORDERED: INSULIN GLARGINE SOLOSTAR 100 UNITS/ML 3 ML PEN SC STA ×2 (14:23→14:25)
--- NOTE | 2016-07-24 14:33 | Pharmacy Progress Note ---
Glycemic Control: Progress Nt Date of Service Jul 24, 2016. Scope Glycemic Pharmacist consulted by Dr Link on 07/20/16 for glycemic control and to write orders per [facility] inpatient glycemic control protocol. Objective Accuchecks BSG (last 24hrs): Test 07/23/16 16:31 07/23/16 17:10 07/23/16 20:05 07/24/16 01:56 Bedside Glucose 181 mg/dl (70-99) 207 mg/dl (70-99) 152 mg/dl (70-99) Random Glucose 171 mg/dl (70-99) Test 07/24/16 07:11 07/24/16 11:14 Bedside Glucose 106 mg/dl (70-99) 173 mg/dl (70-99) Laboratory Data (last 24hrs) Test 07/23/16 17:10 07/24/16 05:40 Anion Gap 12.0 mmol/L BUN/Creatinine Ratio 7.2 Blood Urea Nitrogen 9 mg/dl Creatinine 1.20 mg/dl Potassium Level 3.9 mmol/L Sodium Level 139 mmol/L White Blood Count 10.78 K/uL Red Blood Count 2.94 M/uL Hemoglobin 8.1 g/dL Hematocrit 24.2 % Mean Corpuscular Volume 82.3 fL Mean Corpuscular Hemoglobin 27.6 pg Mean Corpuscular Hemoglobin Concent 33.5 g/dl Platelet Count 228 K/uL Mean Platelet Volume 10.0 fL Neutrophils (%) (Auto) 68.9 % Lymphocytes (%) (Auto) 20.7 % Monocytes (%) (Auto) 8.6 % Eosinophils (%) (Auto) 1.3 % Basophils (%) (Auto) 0.0 % Neutrophils # (Auto) 7.43 K/uL Lymphocytes # (Auto) 2.23 K/uL Monocytes # (Auto) 0.93 K/uL Eosinophils # (Auto) 0.14 K/uL Basophils # (Auto) 0.00 K/uL Recent Pertinent Medications Outpatient Anti-diabetic Regimen: * Lantus 10 units SC HS * Novolog sliding scale * A1c erroneous 2nd recent PRBC infusion The patient is currently receiving: * Basal insulin: Lantus 16 units 07/23 AM, 10 units 07/23 PM * Correctional Insulin: Novolog Correction per scale q4h Goal Range: Low 140 mg/dL - High 180 mg/dL Correction Factor: 20 mg/dL/unit * Prandial insulin: Per carb ratio of 1 unit per 10 grams CHO consumed Risk Factors for Insulin Resistance: * Infection: on ceftriaxone * Diet: T2DM/AHA - poor po intake Assessment & Plan ASSESSMENT: * ADA & AACE recommend a goal blood sugar range 140-180 mg/dl for the majority of critically ill & non-critically ill patients. However, more stringent targets may be selected in individual cases. 07/23/16 * Patient was to start TPN today, but instead swallow eval ordered. Patient switched from NPO to T2DM. * D5 w KCl 20 mEq/L @ 150 mL/hr stopped - this provided 180 g of CHO / 24 hr that was being covered by Lantus. Since patient now ordered diet and carb ratio , will decrease Lantus significantly * Will loosen carb ratio to weight-based estimate * Will change to q6h checks as patient's BSG have not been significantly elevated 07/24/16 * Patient ordered a diet, but poor po intake * BSG's decreased from 152 to 106 mg/dL overnight with no Novolog administered * Put AM Lantus on hold until could assess lunch BSG to ensure BSG's did not continue to decrease * Lunch BSG OK at 173 mg/dL today * Patient received a total of Lantus 26 units yesterday - will decrease so patient will receive a maximum of 20 units daily * OK to eliminate overnight BSG check - pt didn't require overnight last night PLAN FOR INPATIENT GLYCEMIC CONTROL: * Basal insulin with LANTUS * Decrease 10 units SQ QAM - half for BSG < 110 mg/dL * 10 units SQ QPM - hold from BSG < 150 mg/dL. Half for BSG 151-200 mg/dL * Correctional Insulin with NOVOLOG per scale ACHS - eliminate check at 0200 * Goal Range: Low 140 mg/dL - High 180 mg/dL * Correction Factor: 20 mg/dL/unit * Nutritional / Prandial insulin per carb ratio of 1 unit per 10 grams CHO consumed * Please note that the plan above was derived based on current level of insulin resistance and hospital stress. These recommendations are appropriate for inpatient admission only. Plan of care upon discharge will need to be reassessed to avoid potential outpatient hypo/hyperglycemia. Thank you.
[2016-07-24] MEDS: ACETAMINOPHEN IV 100 ML IV PRN (15:19)
[2016-07-24 15:39] VITALS: BP 119/68; PULSE 95; TEMP 36.8; O2SAT 96
[2016-07-24] MEDS: LORAZEPAM INJ 0.5 MG in SYRINGE 0.75 ML IV PRN ×2 (16:03→22:14)
[2016-07-24 17:52] LABS: BUN/CREATININE RATIO 9.6 (10-20); CALCIUM 7.8 mg/dl (8.5-10.1); CREATININE 1.4 mg/dl (0.60-1.40); POTASSIUM 3.6 mmol/L (3.5-5.1)
[2016-07-24] MEDS: INSULIN GLARGINE SOLOSTAR 100 UNITS/ML 3 ML PEN SC SCH (20:46)
[2016-07-24 23:10] VITALS: BP 102/67; PULSE 85; TEMP 36.5; O2SAT 97
[2016-07-25] VITALS (11 sets, daily range): BP systolic 92–124; BP diastolic 57–78; PULSE 80–96; TEMP 36.7–37.8; O2SAT 93–99
[2016-07-25] MEDS: LORAZEPAM INJ 0.5 MG in SYRINGE 0.75 ML IV PRN ×3 (03:53→21:48)
[2016-07-25] MEDS: INSULIN ASPART 100 UNITS/ML 3 ML PEN SC SCH ×4 (06:30→21:00)
[2016-07-25 07:13] LABS: BASO % 0.1 %; BASO ABS # 0.01 K/uL (0-0.2); EOS % 2.1 %; IG% 0.3 %; LYMPH % 20.8 %; LYMPH ABS # 1.91 K/uL (1.2-3.4); MEAN CORPUSCULAR HEMOGLOBIN 27.5 pg (25-34); MEAN CORPUSCULAR HGB CONC 32.7 g/dl (32-36); MEAN PLATELET VOLUME 9.9 fL (7.4-10.4); MONO % 10.1 %; NEUT % 66.6 %; PLATELET COUNT 223 K/uL (130-400); RED BLOOD COUNT 2.62 M/uL (4.7-6.1)
[2016-07-25 07:34] LABS: COMPLETE YES; POLYCHROMASIA 1+
--- NOTE | 2016-07-25 07:38 | Hospitalist Progress Note ---
Hospitalist Progress Note Date of Service Jul 25, 2016. (Dayanna Charles PA-C) Subjective Pt evaluation today including: conversation w/ patient, physical exam, chart review, lab review, review of studies, review of inpatient medication list Pain: Abdominal pain PO Intake: Good The patient was seen and examined this morning. Pt reports abdominal pain in the RUQ which is worsened after he ate breakfast. His answers are mostly yes and no, but he is trying to communicate. His speech is somewhat repetitive and garbled with open ended questions but he is much more awake than yesterday. He denies chest pain or shortness of breath. Constitutional: No chills, No fever ENT: No trouble swallowing Respiratory: No cough, No shortness of breath Cardiovascular: No chest pain, No palpitations Abdomen: + pain, No nausea, No vomiting Musculoskeletal: No calf pain, No joint pain, No swelling Skin: No itch (Dayanna Charles PA-C) Objective Vital Signs Date Time Temp Pulse Resp B/P Pulse Ox O2 Delivery O2 Flow Rate FiO2 07/25/16 01:18 Room Air 07/24/16 23:10 36.5 85 20 102/67 97 Room Air 07/24/16 15:45 Room Air 07/24/16 15:39 36.8 95 18 119/68 96 Room Air 07/24/16 08:32 37.3 101 20 123/76 92 07/24/16 08:00 92 Room Air (Dayanna Charles PA-C) Physical Exam General Appearance: + thin, + pertinent finding (awake, sitting up in bed) Eyes: PERRL, EOMI ENT: hearing grossly normal, + pertinent finding (mucous membranes moist) Neck: no JVD Respiratory/Chest: lungs clear, normal breath sounds, no respiratory distress, no accessory muscle use Cardiovascular: regular rate, rhythm, + systolic murmur (grade III, ) Abdomen: normal bowel sounds, soft, no organomegaly, + tenderness (RUQ with deep palpation, generalized tenderness throughout. + mild distension) Extremities: non-tender, no pedal edema, no calf tenderness Neurologic/Psychiatric: alert, + disoriented Skin: normal color, warm/dry (Filipowicz,Dayanna G., PA-C) Laboratory Results Last 24 Hours Test 07/24/16 11:14 07/24/16 14:38 07/24/16 16:21 07/24/16 17:00 Bedside Glucose 173 mg/dl 159 mg/dl 128 mg/dl Sodium Level 142 mmol/L Potassium Level 3.6 mmol/L Chloride Level 110 mmol/L Carbon Dioxide Level 21 mmol/L Anion Gap 11.0 mmol/L Blood Urea Nitrogen 14 mg/dl Creatinine 1.40 mg/dl Est Creatinine Clear Calc Drug Dose 56.2 ml/min Estimated GFR () 59.8 Estimated GFR (Non- 51.6 BUN/Creatinine Ratio 9.6 Random Glucose 111 mg/dl Calcium Level 7.8 mg/dl Test 07/24/16 20:23 07/25/16 06:23 Bedside Glucose 121 mg/dl White Blood Count 9.20 K/uL Red Blood Count 2.62 M/uL Hemoglobin 7.2 g/dL Hematocrit 22.0 % Mean Corpuscular Volume 84.0 fL Mean Corpuscular Hemoglobin 27.5 pg Mean Corpuscular Hemoglobin Concent 32.7 g/dl Platelet Count 223 K/uL Mean Platelet Volume 9.9 fL Neutrophils (%) (Auto) 66.6 % Lymphocytes (%) (Auto) 20.8 % Monocytes (%) (Auto) 10.1 % Eosinophils (%) (Auto) 2.1 % Basophils (%) (Auto) 0.1 % Neutrophils # (Auto) 6.13 K/uL Lymphocytes # (Auto) 1.91 K/uL Monocytes # (Auto) 0.93 K/uL Eosinophils # (Auto) 0.19 K/uL Basophils # (Auto) 0.01 K/uL RDW Standard Deviation 45.7 fL RDW Coefficient of Variation 14.8 % Immature Granulocyte % (Auto) 0.3 % Immature Granulocyte # (Auto) 0.03 K/uL Polychromasia 1+ (Dayanna Charles PA-C) Assessment and Plan 65 y/o male from [facility] with a history of schizoaffective disorder, depression, GERD, coronary artery disease, and previous stroke, who presents with altered mental status, severe anemia, and hyperglycemia. DKA with hyperglycemia > 400 upon admission - insulin drip D/C'd 07/21 - Pharmacy managing glucose- decreased Lantus due to 20 U total daily due to limited oral intake yesterday. Appreciate recommendations - Cont pureed foods and thin liquids per speech eval - no need for TPN at this time. If the patient needs this in the future will need to have CM coordinate with [facility] to determine if they can care for a patient with this need. Consent given by POA for PICC line but will not be placed at this time. UTI -Urine culture positive for E. coli that is resistant to fluoroquinolones - Administered Rocephin 1 gm IV qd x 4 days, - switch to keflex today 250 mg QID x 5 more days to complete a 10 day course. Hypernatremia - Na+ improved now, resolved. - Passed speech eval, continue with oral intake - follow am labs Metabolic encephalopathy - Secondary to combination of UTI and electrolyte imbalances - Seroquel was reduced last night as this is likely causing drowsiness. He is much more awake and alert this morning- pt alert, awake, and able to follow commands. Speech is clearer, states yes and no appropriately. He also can answer questions with few words although sometimes becomes repetitive and is somewhat garbled. - Pt was restarted on his outpatient psych meds 07/23 in the evening. Severe anemia secondary to GI bleed of unknown origin -Hgb decreased today to 7.2, will order another unit of PRBCs, repeat type and screen - Attempted to contact the POA who did not answer - will attempt again later today to determine a goal for care. - positive occult blood in stool. H/o GI bleed in past. Refusing colonoscopy: -Discussed with his POA previously by service, Marcie Jaramillo at [phone], she stated that he had an EGD in PCU when he had a similar bleeding before, He refused colonoscopy, she leaned towards conservative management with PPI and no procedures -Protonix 40 mg IV BID - will also add carafate and maalox today for complaints of RUQ pain. -Continue holding ASA/Plavix - S/P 3 units leuk-reduced PRBCs Schizoaffective disorder - Restarted Keppra, Ativan, Seroquel (reduced dose), Effexor, Gabapentin- likely to improve mental status. - Receives IM Haldol 25 mg once monthly injection as an outpatient. - Last administration unknown. - Haldol 2 mg IM q12h prn agitation DVT prophylaxis -SCDs, no anticoagulation d/t GI bleed. Code Status: DNR Disposition: From [facility], return there once medically stable, bed on hold per CM. (Dayanna Charles PA-C) Reviewed: Pt Seen/Exam by Me (Shanelle Riley, ) History Pt denies pain. More cooperative per nursing. No issues with PO. Agree with HPI/ROS as noted. (Shanelle Riley, DO) Comments General Appearance: WD/WN, no apparent distress Respiratory: normal breath sounds, no respiratory distress Cardiovascular: normal peripheral pulses, regular rate, rhythm Gastrointestinal: non tender, soft Neurologic/Psychiatric: alert (to person), other (answers yes/no, following commands, more alert than yesterday) Skin Characteristics: normal color, warm/dry (Shanelle Riley, ) Assessment/Plan Plan as outline above Pt has ongoing AMS, but uncertain how much of this is baseline Resumed pt's usual psych meds and pt is more interactive but more groggy, seems more alert with decreased seroquel Of note, pt was off of keppra for several days and on a tele monitor during this time without any seizure activity Speech: eval done and pt found safe for pureed/thin liquids Will resume this PICC has not been placed, and pt has been tolerating PO without issue, hopefully PICC/TPN can be avoided GIB: conservative care Hb is with ongoing trending down, requires transfusion today Seems like pt may need chronic periodic transfusions and not sure if this is the direction pt would prefer. Called POA yesterday afternoon and again this AM to clarify, however calls have not been returned. POA did discuss care with prior hospitalist over the weekend, so uncertain why calls are going unreturned. If this is ongoing, may need to determine ongoing care via another route. Would like to clarify prior to d/c back to [facility]. (Shanelle Riley, )
[2016-07-25] MEDS: QUETIAPINE FUMARATE 100 MG TAB PO SCH ×3 (08:29→21:45)
[2016-07-25] MEDS: DIVALPROEX SODIUM SPRINKLE 125 MG CAP PO SCH ×3 (08:30→21:47)
[2016-07-25] MEDS: LEVETIRACETAM 250 MG TAB PO SCH ×2 (08:30→21:46)
[2016-07-25] MEDS: RISPERIDONE 0.5 MG TAB PO SCH ×2 (08:30→21:46)
[2016-07-25] MEDS: VENLAFAXINE HCL XR 150 MG CAPXR PO SCH (08:30)
[2016-07-25] MEDS: PANTOprazole INJ 40 MG in SYRINGE 0 ML IV SCH (08:30)
[2016-07-25] MEDS: INSULIN GLARGINE SOLOSTAR 100 UNITS/ML 3 ML PEN SC SCH ×2 (08:43→21:00)
[2016-07-25] MEDS ORDERED: ALUMINUM/MAGNESIUM SUSP 30 ML UDC PO ONE ×2 (09:30→17:45)
[2016-07-25] MEDS: SUCRALFATE 1 GM/10 ML UDC PO SCH ×4 (10:22→21:45)
--- NOTE | 2016-07-25 12:56 | Pharmacy Progress Note ---
Glycemic Control: Progress Nt Date of Service Jul 25, 2016. Scope Glycemic Pharmacist consulted by Dr Link on 07/20/16 for glycemic control and to write orders per [facility] inpatient glycemic control protocol. Objective Accuchecks BSG (last 24hrs): Test 07/24/16 14:38 07/24/16 16:21 07/24/16 17:00 07/24/16 20:23 Bedside Glucose 159 mg/dl (70-99) 128 mg/dl (70-99) 121 mg/dl (70-99) Random Glucose 111 mg/dl (70-99) Test 07/25/16 07:32 07/25/16 11:43 Bedside Glucose 91 mg/dl (70-99) 125 mg/dl (70-99) Laboratory Data (last 24hrs) Test 07/24/16 17:00 07/25/16 06:23 Anion Gap 11.0 mmol/L BUN/Creatinine Ratio 9.6 Blood Urea Nitrogen 14 mg/dl Creatinine 1.40 mg/dl Potassium Level 3.6 mmol/L Sodium Level 142 mmol/L White Blood Count 9.20 K/uL Red Blood Count 2.62 M/uL Hemoglobin 7.2 g/dL Hematocrit 22.0 % Mean Corpuscular Volume 84.0 fL Mean Corpuscular Hemoglobin 27.5 pg Mean Corpuscular Hemoglobin Concent 32.7 g/dl Platelet Count 223 K/uL Mean Platelet Volume 9.9 fL Neutrophils (%) (Auto) 66.6 % Lymphocytes (%) (Auto) 20.8 % Monocytes (%) (Auto) 10.1 % Eosinophils (%) (Auto) 2.1 % Basophils (%) (Auto) 0.1 % Neutrophils # (Auto) 6.13 K/uL Lymphocytes # (Auto) 1.91 K/uL Monocytes # (Auto) 0.93 K/uL Eosinophils # (Auto) 0.19 K/uL Basophils # (Auto) 0.01 K/uL Recent Pertinent Medications Outpatient Anti-diabetic Regimen: * Lantus 10 units SC HS * Novolog sliding scale * A1c erroneous 2nd recent PRBC infusion The patient is currently receiving: * Basal insulin: Lantus 10 units 1/24 AM, 0 units 1/24 PM * Correctional Insulin: Novolog Correction per scale q4h Goal Range: Low 140 mg/dL - High 180 mg/dL Correction Factor: 20 mg/dL/unit * Prandial insulin: Per carb ratio of 1 unit per 10 grams CHO consumed Risk Factors for Insulin Resistance: * Infection: E. coli UTI - on cephalexin * Diet: T2DM/AHA - poor po intake Assessment & Plan ASSESSMENT: * ADA & AACE recommend a goal blood sugar range 140-180 mg/dl for the majority of critically ill & non-critically ill patients. However, more stringent targets may be selected in individual cases. 07/24/16 * Patient ordered a diet, but poor po intake * BSG's decreased from 152 to 106 mg/dL overnight with no Novolog administered * Put AM Lantus on hold until could assess lunch BSG to ensure BSG's did not continue to decrease * Lunch BSG OK at 173 mg/dL today * Patient received a total of Lantus 26 units yesterday - will decrease so patient will receive a maximum of 20 units daily * OK to eliminate overnight BSG check - pt didn't require overnight last night 07/25/16 * AM fasting BSG slightly low today at 91 mg/dL after patient received home- dose of Lantus (10 units) yesterday AM. This is likely 2nd poor po intake. * Patient appropriately received no insulin yesterday PM and 1/2 dose Lantus this AM (5 units). Will order a small additional dose this PM for BSG > 150 mg/ dL. Patient will receive a total of 80% of home dose if this is administered * Will decrease ongoing AM Lantus so patient will receive no more than 80% of home dose PLAN FOR INPATIENT GLYCEMIC CONTROL: * Basal insulin with LANTUS * Decrease 8 units SQ QAM - half for BSG < 100 mg/dL * Decrease 3 units SQ QPM - hold for BSG < 150 mg/dL * Correctional Insulin with NOVOLOG per scale ACHS * Goal Range: Low 140 mg/dL - High 180 mg/dL * Correction Factor: 20 mg/dL/unit * Nutritional / Prandial insulin per carb ratio of 1 unit per 10 grams CHO consumed * Please note that the plan above was derived based on current level of insulin resistance and hospital stress. These recommendations are appropriate for inpatient admission only. Plan of care upon discharge will need to be reassessed to avoid potential outpatient hypo/hyperglycemia. Thank you.
[2016-07-25] MEDS: CEPHALEXIN MONOHYDRATE 250 MG CAP PO SCH ×3 (13:57→21:44)
[2016-07-25 18:21] LABS: BUN/CREATININE RATIO 11.1 (10-20); CALCIUM 7.9 mg/dl (8.5-10.1); CREATININE 1.2 mg/dl (0.60-1.40); POTASSIUM 3.6 mmol/L (3.5-5.1)
[2016-07-25] MEDS: PANTOprazole SOD 40 MG TAB PO SCH (21:47)
[2016-07-26] MEDS: MoRPHine SULFATE 2 MG/ML CARP IV PRN (00:17)
[2016-07-26] MEDS: QUETIAPINE FUMARATE 100 MG TAB PO SCH ×2 (07:45→12:35)
[2016-07-26] MEDS: VENLAFAXINE HCL XR 150 MG CAPXR PO SCH (07:46)
[2016-07-26] MEDS: PANTOprazole SOD 40 MG TAB PO SCH (07:46)
[2016-07-26] MEDS: RISPERIDONE 0.5 MG TAB PO SCH (07:46)
[2016-07-26] MEDS: SUCRALFATE 1 GM/10 ML UDC PO SCH ×2 (07:47→12:34)
[2016-07-26] MEDS: LEVETIRACETAM 250 MG TAB PO SCH (07:47)
[2016-07-26] MEDS: CEPHALEXIN MONOHYDRATE 250 MG CAP PO SCH ×2 (07:48→12:34)
[2016-07-26] MEDS: DIVALPROEX SODIUM SPRINKLE 125 MG CAP PO SCH ×2 (07:48→12:36)
[2016-07-26 08:14] VITALS: BP 130/71; PULSE 89; TEMP 37; O2SAT 92
[2016-07-26 08:53] LABS: BASO % 0.1 %; BASO ABS # 0.01 K/uL (0-0.2); EOS % 1.1 %; HEMATOCRIT 26.9 % (42-52); IG% 0.3 %; LYMPH % 18.7 %; LYMPH ABS # 1.72 K/uL (1.2-3.4); MEAN CELL VOLUME 86.5 fL (80-100); MEAN CORPUSCULAR HEMOGLOBIN 28.3 pg (25-34); MEAN CORPUSCULAR HGB CONC 32.7 g/dl (32-36); MONO % 9.6 %; NEUT % 70.2 %; PLATELET COUNT 278 K/uL (130-400); RED BLOOD COUNT 3.11 M/uL (4.7-6.1); WHITE BLOOD COUNT 9.21 K/uL (4.8-10.8)
[2016-07-26] MEDS: INSULIN ASPART 100 UNITS/ML 3 ML PEN SC SCH ×2 (09:19→12:42)
[2016-07-26 09:23] LABS: COMPLETE YES; POLYCHROMASIA 1+
[2016-07-26] MEDS ORDERED: INSULIN GLARGINE SOLOSTAR 100 UNITS/ML 3 ML PEN SC SCH (10:00)
--- NOTE | 2016-07-26 11:28 | Pharmacy Progress Note ---
Glycemic Control: Progress Nt Date of Service Jul 26, 2016. Scope Glycemic Pharmacist consulted by Dr Link on 07/20 for glycemic control and to write orders per [facility] inpatient glycemic control protocol. Objective Accuchecks BSG (last 24hrs): Test 07/25/16 11:43 07/25/16 16:52 07/25/16 17:35 07/25/16 19:52 Bedside Glucose 125 mg/dl (70-99) 99 mg/dl (70-99) 148 mg/dl (70-99) Random Glucose 99 mg/dl (70-99) Laboratory Data (last 24hrs) Test 07/25/16 17:35 07/26/16 07:12 Anion Gap 12.0 mmol/L BUN/Creatinine Ratio 11.1 Blood Urea Nitrogen 13 mg/dl Creatinine 1.20 mg/dl Potassium Level 3.6 mmol/L Sodium Level 141 mmol/L White Blood Count 9.21 K/uL Red Blood Count 3.11 M/uL Hemoglobin 8.8 g/dL Hematocrit 26.9 % Mean Corpuscular Volume 86.5 fL Mean Corpuscular Hemoglobin 28.3 pg Mean Corpuscular Hemoglobin Concent 32.7 g/dl Platelet Count 278 K/uL Mean Platelet Volume 10.0 fL Neutrophils (%) (Auto) 70.2 % Lymphocytes (%) (Auto) 18.7 % Monocytes (%) (Auto) 9.6 % Eosinophils (%) (Auto) 1.1 % Basophils (%) (Auto) 0.1 % Neutrophils # (Auto) 6.47 K/uL Lymphocytes # (Auto) 1.72 K/uL Monocytes # (Auto) 0.88 K/uL Eosinophils # (Auto) 0.10 K/uL Basophils # (Auto) 0.01 K/uL Recent Pertinent Medications Outpatient Anti-diabetic Regimen: * Lantus 10 units SC HS * Novolog sliding scale * A1c erroneous 2nd recent PRBC infusion The patient is currently receiving: * Basal insulin: Lantus 5 units qAM (hold < 100 mg/dL), 3 units qPM (hold < 150 mg/dL) * Correctional Insulin: Novolog Correction per scale q4h Goal Range: Low 140 mg/dL - High 180 mg/dL Correction Factor: 20 mg/dL/unit * Prandial insulin: Per carb ratio of 1 unit per 10 grams CHO consumed Risk Factors for Insulin Resistance: * Infection: E. coli UTI - on cephalexin * Diet: T2DM/AHA - poor po intake Assessment & Plan ASSESSMENT: * ADA & AACE recommend a goal blood sugar range 140-180 mg/dl for the majority of critically ill & non-critically ill patients. However, more stringent targets may be selected in individual cases. 07/25/16 * AM fasting BSG slightly low today at 91 mg/dL after patient received home- dose of Lantus (10 units) yesterday AM. This is likely 2nd poor po intake. * Patient appropriately received no insulin yesterday PM and 1/2 dose Lantus this AM (5 units). Will order a small additional dose this PM for BSG > 150 mg/ dL. Patient will receive a total of 80% of home dose if this is administered * Will decrease ongoing AM Lantus so patient will receive no more than 80% of home dose 07/26/16 * AM fasting BSG good after receiving 5 units Lantus yesterday AM. Will eliminate PM Lantus dose and just administer in AM * Patient has not received any Novolog 2nd high goal range and minimal po intake * Will decrease goal range so patient may receive additional correctional insulin, but will loosen correction factor and carb ratio so patient does not receive too much PLAN FOR INPATIENT GLYCEMIC CONTROL: * Basal insulin with LANTUS * Decrease 5 units SQ QAM - hold for BSG < 100 mg/dL * Eliminate QPM * Correctional Insulin with NOVOLOG per scale ACHS * Decrease Goal Range: Low 110 mg/dL - High 140 mg/dL * Loosen Correction Factor: 30 mg/dL/unit * Loosen Nutritional / Prandial insulin per carb ratio of 1 unit per 13 grams CHO consumed * Please note that the plan above was derived based on current level of insulin resistance and hospital stress. These recommendations are appropriate for inpatient admission only. Plan of care upon discharge will need to be reassessed to avoid potential outpatient hypo/hyperglycemia. Thank you.
[2016-07-26] MEDS ORDERED: KFL250 PO (14:42)
[2016-07-26] MEDS ORDERED: CLC100X PO (14:42)
[2016-07-26] MEDS ORDERED: SRQ100 PO ×2 (14:42)
--- NOTE | 2016-07-26 14:54 | Discharge Instructions ---
Discharge Instructions Admission Reason for Admission: Ams,Anemia,Hyperglyemia Discharge Discharge Diagnosis / Problem: Anemia, GIB Discharge Goals Goal(s): Decrease discomfort, Improve function, Increase independence Activity Recommendations Activity Level: Assistance Required Therapies: Physical Therapy, Occupational Therapy . Additional Information Patient informed of condition: Yes Advance Directives: Yes DNR: Yes Level of Care: Skilled Communicable Disease: No Prognosis: Stable Rod Catheter: No Current Hospital Diet Patient's current hospital diet: AHA Diet (Heart Healthy), Diabetes Type 2 Diet Discharge Diet Recommended Diet: Diabetes Type 2 Diet Diet Texture: Pureed (blended smooth) (thin liquid) Pending Studies Studies pending at discharge: no Physician Orders On Transfer Additional Orders: H/H QD x5 days Call attending personal property assessor for further instructions if Hb is <8.0 Do not send pt to ED until speaking with attending Laboratory Results Hemoglobin A1c Test 07/04/16 04:42 Range/Units Estimated Average Glucose 163 mg/dl Hemoglobin A1c 7.3 H 4.5-5.6 % Medical Emergencies . Who to Call and When: Medical Emergencies: If at any time you feel your situation is an emergency, please call 911 immediately. . Non-Emergent Contact Non-Emergency issues call your: Primary Care Provider . . "Provider Documentation" section prepared by Shanelle Riley. Core Measure Problem Core Measures: None
--- NOTE | 2016-07-26 14:55 | Discharge Summary ---
Discharge Summary Admission Date: Jul 19, 2016 at 23:05 Discharge Date: Jul 26, 2016 Discharge Disposition: long-term facility Principal Diagnosis: Anemia, GIB Problems/Secondary Diagnoses: Hypoxia Hyperglycemia Hypotension Schizophrenia with dementia CAD CVAGERD Gout HLD DM Procedures: Blood transfusion Medication Reconciliation New Medications: Cephalexin Monohydrate (Cephalexin) 250 Mg Cap 250 MG PO QID for 4 Days, #16 CAP Quetiapine Fumarate (Quetiapine Fumarate) 100 Mg Tab 100 MG PO BID@0800,1300 for 30 Days, TAB Quetiapine Fumarate (Quetiapine Fumarate) 100 Mg Tab 150 MG PO QD@2100 for 30 Days, TAB Changed Medications: Docusate Sodium (Docusate Sodium) 100 Mg Cap 100 MG PO BID PRN for Constipation MDD 200 for 30 Days (Medication details modified) Continued Medications: Acetaminophen Tab (Tylenol) 325 Mg Tab 650 MG PO Q8 DO NOT EXCEED 3GM APAP/24HRS Bisacodyl (Dulcolax) 10 Mg Sup 1 SUPP MD UD PRN for NO BM X 4 DAYS Diclofenac Sod (Voltaren 1% Top Gel) Gel 2 GM TOP TID Divalproex Sodium (Depakote Sprinkles) 125 Mg Cap 125 MG PO TID Gabapentin (Neurontin) 300 Mg Cap 300 MG PO HS, CAP Haloperidol (Haloperidol) 2 Mg Tab 2 MG PO Q6 PRN for YELLING,COMBATIVE,ETC, 2 Refills USE FOR YELLING,COMBATIVE EPISODES,THROWING SELF ON FLOOR Haloperidol Decanoate (Haldol Decanoate 100) 100 Mg/Ml Inj 25 MG IM MONTHLY for 30 Days, #1 ML 5 Refills Haloperidol Lactate (Haldol) 5 Mg/Ml Inj 2 MG IM Q12 PRN for Agitation Hydrocodone-Acetaminophen (Lortab 5-325 mg) 1 Tab Tab 1 TAB PO Q8 PRN for Pain Insulin Aspart (Novolog Flexpen) 100 Units/Ml Inj 1 DOSE SQ SLIDING SCALE 0-150=0 UNITS 151-200=3 UNITS 201-250=5 UNITS 251-300=7 UNITS 301-350=9 UNITS 351-400=11 UNITS 401-450=13 UNITS >451 GIVE 15 UNITS Insulin Glargine (Lantus Solostar) 100 Unit/Ml Inj 10 UNITS SC HS, PEN START DATE 07/19/2016 Levetiracetam (Keppra) 750 Mg Tab 750 MG PO BID Lidocaine (Anorectal) (Lidocaine) 5 % Cre 1 DOSE TOP DAILY Magnesium Hydroxide (Milk Of Magnesia) 30 Ml Susp 30 ML PO UD PRN for NO BM X 9 SHIFTS Risperidone (Risperdal) 0.5 Mg Tab 0.5 MG PO Q12, TAB Simvastatin (Zocor) 10 Mg Tab 10 MG PO HS Sodium Phosphate/Biphosphate (Fleet Enema) Daily 1 EA MD UD PRN for NO RESULT FROM SUPPOSITORY IF NO RESULT AFTER 4 HOURS Venlafaxine Hcl (Effexor Xr) 150 Mg Cap 150 MG PO DAILY, 2 Refills Discontinued Medications: Clopidogrel Bisulfate (Plavix) 75 Mg Tab 75 MG PO DAILY Meloxicam (Mobic) 15 Mg Tab 15 MG PO DAILY, TAB Quetiapine Fumarate (Seroquel) 100 Mg Tab 150 MG PO TID, TAB Discharge Exam Pt is stable. He initially tells me that he has abd pain that he cannot describe, but then tells me he has no pain. He ate today. Nursing states no emesis. Stools have been loose, but no concern for cdff from nursing. Pt denies fever, SOB, chest pain, n/v, LE pain or swelling. ROS as noted above, otherwise neg. Physical Exam: General Appearance: WD/WN, no apparent distress Respiratory/Chest: normal breath sounds, no respiratory distress Cardiovascular: regular rate, rhythm, no edema Abdomen / GI: non tender, soft Neurologic/Psychiatric: alert (to person), + pertinent finding (calls out at times, most answers are yes/no, but does elaborate a bit) Skin: normal color, warm/dry Hospital Course 65 y/o male from [facility] with a history of schizoaffective disorder, depression, GERD, coronary artery disease, and previous stroke, who presents with altered mental status, severe anemia, and hyperglycemia. DKA with hyperglycemia > 400 upon admission - insulin drip D/C'd 07/21 and stable - Pharmacy managing glucose- decreased Lantus due to 20 U total daily due to limited oral intake. This will need close monitoring - Cont pureed foods and thin liquids per speech eval - no need for TPN at this time. If the patient needs this in the future will need to have CM coordinate with [facility] to determine if they can care for a patient with this need. Consent given by POA for PICC line but will not be placed at this time. UTI -Urine culture positive for E. coli that is resistant to fluoroquinolones - Administered Rocephin 1 gm IV qd x 4 days, - switch to keflex complete a 10 day course. Hypernatremia - Na+ improved now, resolved. Metabolic encephalopathy - Secondary to combination of UTI and electrolyte imbalances - Seroquel was reduced as this is likely causing drowsiness. He is much more awake and alert. pt alert, awake, and able to follow commands. Speech is clearer, states yes and no appropriately. He also can answer questions with few words although sometimes becomes repetitive and is somewhat garbled. - Pt was restarted on his outpatient psych meds 07/23 Severe anemia secondary to GI bleed of unknown origin -Hgb with gradual trending down s/p initial transfusion - Attempted to contact the POA prior to repeat transfusion yesterday to determine goals of care, but call was not returned so pt did have an additional unit on 07/25 Hb on d/c is 8.8 - positive occult blood in stool on admission however repeat on 07/25 was neg. H /o GI bleed in past. Refusing colonoscopy at that time: -Discussed with his POA previously by service, Marcie Jaramillo at [phone], she stated that he had an EGD in PCU when he had a similar bleeding before, He refused colonoscopy , she leaned towards conservative management with PPI and no procedures - will also add carafate and maalox today for complaints of RUQ pain. -Continue holding ASA/Plavix/mobic for risk of bleeding, if Hb is stable, this will need reviewed - Pt received a total of 4 units leuk-reduced PRBCs I did discuss transfusion status at length with POA today. She would like to have Hb monitored and will determine ongoing transfusion status if there is ongoing bleeding. She would prefer him not to be transferred to the ED if not needed. She does state that she does not think pt would request his life being prolonged by frequent transfusions and will likely move towards hospice if this is the case. Schizoaffective disorder - Restarted Keppra, Ativan, Seroquel (reduced dose), Effexor, Gabapentin- likely to improve mental status. - Receives IM Haldol 25 mg once monthly injection as an outpatient. - Last administration unknown. - Haldol 2 mg IM q12h prn agitation Total Time Spent: Greater than 30 minutes This includes examination of the patient, discharge planning, medication reconciliation, and communication with other providers. Discharge Instructions Please refer to the electronic Patient Visit Report (Discharge Instructions) for additional information. Follow-Up PCP at [facility] in 3-5 days Additional Copies To [facility]
[2016-07-26 14:58] VITALS: BP 124/76; PULSE 83; TEMP 37.1; O2SAT 95
[2016-07-26 15:36] VITALS: BP 124/76; PULSE 83; TEMP 37.1; O2SAT 95
== END 2016-07-26 17:03 | DRG 377 ==
LOC: ENRESERVDT → ENRESERVTM → EDBD 19:12 → C.EDB 19:14 → C.2T 23:05 → C.MS2W 07-23 18:30
PROVIDERS: ADMIT Internal Medicine; ATTEND Family Medicine
DX: K92.2 Gastrointestinal hemorrhage, unspecified (principal); G93.41 Metabolic encephalopathy; E87.0 Hyperosmolality and hypernatremia; N17.9 Acute kidney failure, unspecified; N39.0 Urinary tract infection, site not specified; E13.10 Other specified diabetes mellitus with ketoacidosis without coma; R41.82 Altered mental status, unspecified; F25.1 Schizoaffective disorder, depressive type; M10.9 Gout, unspecified; I25.10 Atherosclerotic heart disease of native coronary artery without angina pectoris; K21.9 Gastro-esophageal reflux disease without esophagitis; L89.899 Pressure ulcer of other site, unspecified stage; F03.90 Unspecified dementia, unspecified severity, without behavioral disturbance, psychotic disturbance, mood disturbance, and anxiety; E86.0 Dehydration; R09.02 Hypoxemia; F32.9 Major depressive disorder, single episode, unspecified; I95.9 Hypotension, unspecified; Z86.73 Personal history of transient ischemic attack (TIA), and cerebral infarction without residual deficits; Z53.29 Procedure and treatment not carried out because of patient's decision for other reasons; E87.6 Hypokalemia; E83.39 Other disorders of phosphorus metabolism; D50.0 Iron deficiency anemia secondary to blood loss (chronic); Z66 Do not resuscitate; B96.20 Unspecified Escherichia coli [E. coli] as the cause of diseases classified elsewhere

== ENCOUNTER → 2016-07-31 | Outpatient (CLI) | payer OTHER ==
[~2016-07-31] MED LIST changes: -CLOP1TAB5 PO; -DIVA125C PO; +GABA-113 PO; -HLD1X PO; +INSDGIPEN SC; +KFL250 PO; +LIDO4CRE10 TOP; -LIDO5DIS10 TOP; -LORA-741 PO; -MELO15TA10 PO; +NVLGI/PEN SQ; -QUET1TAB34 PO; +RISP0.5T10 PO; +SRQ100 PO
[2016-07-31 09:36] LABS: BASO % 0.1 %; BASO ABS # 0.01 K/uL (0-0.2); EOS % 2.7 %; HEMATOCRIT 27.4 % (42-52); IG% 0.3 %; LYMPH % 35.5 %; LYMPH ABS # 2.49 K/uL (1.2-3.4); MEAN CELL VOLUME 84.6 fL (80-100); MEAN CORPUSCULAR HEMOGLOBIN 26.9 pg (25-34); MEAN CORPUSCULAR HGB CONC 31.8 g/dl (32-36); MEAN PLATELET VOLUME 9.2 fL (7.4-10.4); MONO % 9.6 %; NEUT % 51.8 %; PLATELET COUNT 300 K/uL (130-400); RED BLOOD COUNT 3.24 M/uL (4.7-6.1); WHITE BLOOD COUNT 7.01 K/uL (4.8-10.8)
[2016-07-31 10:22] LABS: COMPLETE YES; POLYCHROMASIA 1+
== END ==
LOC: C.LABUPHEI 09:16
PROVIDERS: ATTEND Family Medicine
DX: D64.9 Anemia, unspecified (principal)

== ENCOUNTER → 2016-08-02 | Outpatient (CLI) | payer OTHER ==
[2016-08-02 08:56] LABS: BASO % 0.8 %; BASO ABS # 0.05 K/uL (0-0.2); EOS % 3.2 %; HEMATOCRIT 26.5 % (42-52); IG% 0.6 %; LYMPH % 37.1 %; LYMPH ABS # 2.32 K/uL (1.2-3.4); MEAN CELL VOLUME 83.9 fL (80-100); MEAN CORPUSCULAR HEMOGLOBIN 26.3 pg (25-34); MEAN CORPUSCULAR HGB CONC 31.3 g/dl (32-36); MEAN PLATELET VOLUME 9.1 fL (7.4-10.4); MONO % 10.1 %; NEUT % 48.2 %; PLATELET COUNT 295 K/uL (130-400); RED BLOOD COUNT 3.16 M/uL (4.7-6.1); WHITE BLOOD COUNT 6.26 K/uL (4.8-10.8)
[2016-08-02 09:17] LABS: ANISOCYTOSIS PRESENT; COMPLETE YES; HYPOCHROMIA PRESENT
== END ==
LOC: C.LABUPHEI 08:46
PROVIDERS: ATTEND Family Medicine
DX: D64.9 Anemia, unspecified (principal)

== ENCOUNTER → 2016-08-09 | Outpatient (CLI) | payer OTHER ==
[2016-08-09 09:36] LABS: BASO % 0.6 %; BASO ABS # 0.04 K/uL (0-0.2); COMPLETE YES; EOS % 3.8 %; HEMATOCRIT 25.8 % (42-52); HYPOCHROMIA PRESENT; IG% 0.6 %; LYMPH % 32.1 %; LYMPH ABS # 2.21 K/uL (1.2-3.4); MEAN CELL VOLUME 82.4 fL (80-100); MEAN CORPUSCULAR HEMOGLOBIN 25.9 pg (25-34); MEAN CORPUSCULAR HGB CONC 31.4 g/dl (32-36); MEAN PLATELET VOLUME 9.2 fL (7.4-10.4); MONO % 8.9 %; PLATELET COUNT 313 K/uL (130-400); RED BLOOD COUNT 3.13 M/uL (4.7-6.1); SPHEROCYTE 1+; WHITE BLOOD COUNT 6.88 K/uL (4.8-10.8)
== END ==
LOC: C.LABUPHEI 08:39
PROVIDERS: ATTEND Family Medicine
DX: D64.9 Anemia, unspecified (principal)

== ENCOUNTER → 2016-08-23 | Outpatient (CLI) | payer OTHER ==
[2016-08-23 08:21] LABS: BASO % 0.5 %; BASO ABS # 0.04 K/uL (0-0.2); HEMATOCRIT 27.3 % (42-52); IG% 0.2 %; LYMPH % 31.8 %; LYMPH ABS # 2.55 K/uL (1.2-3.4); MEAN CELL VOLUME 77.3 fL (80-100); MEAN CORPUSCULAR HEMOGLOBIN 24.4 pg (25-34); MEAN CORPUSCULAR HGB CONC 31.5 g/dl (32-36); MEAN PLATELET VOLUME 9.3 fL (7.4-10.4); MONO % 7.9 %; NEUT % 57.6 %; PLATELET COUNT 294 K/uL (130-400); RED BLOOD COUNT 3.53 M/uL (4.7-6.1); WHITE BLOOD COUNT 8.02 K/uL (4.8-10.8)
[2016-08-23 08:53] LABS: ANISOCYTOSIS PRESENT; COMPLETE YES; HYPOCHROMIA PRESENT
== END ==
LOC: C.LABUPHEI 08:01
PROVIDERS: ATTEND Family Medicine
DX: M62.81 Muscle weakness (generalized) (principal)

== ENCOUNTER → 2016-09-04 | Outpatient (CLI) | payer OTHER ==
[2016-09-04 09:37] LABS: BASO % 0.5 %; BASO ABS # 0.04 K/uL (0-0.2); EOS % 2.9 %; HEMATOCRIT 27.1 % (42-52); IG% 0.2 %; LYMPH % 34.1 %; LYMPH ABS # 2.84 K/uL (1.2-3.4); MEAN CELL VOLUME 76.1 fL (80-100); MEAN CORPUSCULAR HEMOGLOBIN 23.3 pg (25-34); MEAN CORPUSCULAR HGB CONC 30.6 g/dl (32-36); MEAN PLATELET VOLUME 9.3 fL (7.4-10.4); MONO % 8.9 %; NEUT % 53.4 %; PLATELET COUNT 253 K/uL (130-400); RED BLOOD COUNT 3.56 M/uL (4.7-6.1); WHITE BLOOD COUNT 8.32 K/uL (4.8-10.8)
[2016-09-04 09:59] LABS: ANISOCYTOSIS PRESENT; COMPLETE YES; HYPOCHROMIA PRESENT
== END ==
LOC: C.LABUPHEI 09:05
PROVIDERS: ATTEND Family Medicine
DX: D64.9 Anemia, unspecified (principal)

== ENCOUNTER → 2016-09-18 | Outpatient (CLI) | payer OTHER ==
[2016-09-18 09:42] LABS: BASO % 0.5 %; BASO ABS # 0.04 K/uL (0-0.2); EOS % 4.1 %; HEMATOCRIT 33.8 % (42-52); IG% 0.3 %; LYMPH % 38.2 %; LYMPH ABS # 2.89 K/uL (1.2-3.4); MEAN CELL VOLUME 78.4 fL (80-100); MEAN CORPUSCULAR HEMOGLOBIN 23.7 pg (25-34); MEAN CORPUSCULAR HGB CONC 30.2 g/dl (32-36); MEAN PLATELET VOLUME 9.3 fL (7.4-10.4); MONO % 9.5 %; NEUT % 47.4 %; PLATELET COUNT 259 K/uL (130-400); RED BLOOD COUNT 4.31 M/uL (4.7-6.1); WHITE BLOOD COUNT 7.57 K/uL (4.8-10.8)
[2016-09-18 11:30] LABS: ANISOCYTOSIS PRESENT; COMPLETE YES
== END ==
LOC: C.LABUPHEI 09:26
PROVIDERS: ATTEND Family Medicine
DX: D64.9 Anemia, unspecified (principal)

== ENCOUNTER → 2016-10-02 | Outpatient (CLI) | payer OTHER ==
[~2016-10-02] MED LIST changes: +QUET-115 PO; -SRQ100 PO
[2016-10-02 10:17] LABS: BASO % 0.4 %; BASO ABS # 0.03 K/uL (0-0.2); EOS % 1.6 %; HEMATOCRIT 34.8 % (42-52); IG% 0.4 %; LYMPH % 31.9 %; LYMPH ABS # 2.72 K/uL (1.2-3.4); MEAN CELL VOLUME 78.7 fL (80-100); MEAN CORPUSCULAR HEMOGLOBIN 25.1 pg (25-34); MEAN CORPUSCULAR HGB CONC 31.9 g/dl (32-36); MEAN PLATELET VOLUME 9.7 fL (7.4-10.4); MONO % 7.6 %; NEUT % 58.1 %; PLATELET COUNT 269 K/uL (130-400); RED BLOOD COUNT 4.42 M/uL (4.7-6.1); WHITE BLOOD COUNT 8.54 K/uL (4.8-10.8)
[2016-10-02 10:46] LABS: ANISOCYTOSIS PRESENT; COMPLETE YES; MICROCYTOSIS PRESENT; OVALOCYTES 1+; POIKILOCYTOSIS PRESENT
== END | disposition home or self-care (01) ==
LOC: C.LABUPHEI 09:17
PROVIDERS: ATTEND Family Medicine
DX: M62.81 Muscle weakness (generalized) (principal)

== ENCOUNTER → 2016-10-16 | Outpatient (CLI) | payer OTHER ==
[2016-10-16 09:40] LABS: BASO % 0.4 %; BASO ABS # 0.03 K/uL (0-0.2); EOS % 1.7 %; HEMATOCRIT 39.5 % (42-52); IG% 0.2 %; LYMPH % 33.8 %; LYMPH ABS # 2.71 K/uL (1.2-3.4); MEAN CELL VOLUME 79.6 fL (80-100); MEAN CORPUSCULAR HEMOGLOBIN 25.4 pg (25-34); MEAN CORPUSCULAR HGB CONC 31.9 g/dl (32-36); MEAN PLATELET VOLUME 10.1 fL (7.4-10.4); MONO % 8.5 %; NEUT % 55.4 %; PLATELET COUNT 228 K/uL (130-400); RED BLOOD COUNT 4.96 M/uL (4.7-6.1); WHITE BLOOD COUNT 8.01 K/uL (4.8-10.8)
[2016-10-16 10:08] LABS: ANISOCYTOSIS PRESENT; COMPLETE YES; OVALOCYTES 1+
== END ==
LOC: C.LABUPHEI 09:20
PROVIDERS: ATTEND Family Medicine
DX: M62.81 Muscle weakness (generalized) (principal)

== ENCOUNTER → 2016-10-30 | Outpatient (CLI) | payer OTHER ==
[2016-10-30 10:15] LABS: BASO % 0.3 %; BASO ABS # 0.03 K/uL (0-0.2); COMPLETE YES; HEMATOCRIT 42.5 % (42-52); IG% 0.4 %; LYMPH % 33.3 %; MEAN CELL VOLUME 81.6 fL (80-100); MEAN CORPUSCULAR HEMOGLOBIN 25.5 pg (25-34); MEAN CORPUSCULAR HGB CONC 31.3 g/dl (32-36); MEAN PLATELET VOLUME 10.2 fL (7.4-10.4); MONO % 9.3 %; NEUT % 54.7 %; PLATELET COUNT 220 K/uL (130-400); RED BLOOD COUNT 5.21 M/uL (4.7-6.1); WHITE BLOOD COUNT 9.32 K/uL (4.8-10.8)
== END ==
LOC: C.LABUPHEI 09:20
PROVIDERS: ATTEND Nurse Practitioner Family
DX: I25.9 Chronic ischemic heart disease, unspecified (principal)

== ENCOUNTER → 2016-11-13 | Outpatient (CLI) | payer OTHER ==
[2016-11-13 09:51] LABS: BASO % 0.4 %; BASO ABS # 0.03 K/uL (0-0.2); COMPLETE YES; EOS % 2.3 %; HEMATOCRIT 43.3 % (42-52); IG% 0.4 %; LYMPH % 36.4 %; LYMPH ABS # 2.95 K/uL (1.2-3.4); MEAN CORPUSCULAR HEMOGLOBIN 26.1 pg (25-34); MEAN CORPUSCULAR HGB CONC 31.9 g/dl (32-36); MEAN PLATELET VOLUME 10.1 fL (7.4-10.4); MONO % 8.4 %; NEUT % 52.1 %; PLATELET COUNT 215 K/uL (130-400); RED BLOOD COUNT 5.28 M/uL (4.7-6.1); WHITE BLOOD COUNT 8.11 K/uL (4.8-10.8)
== END ==
LOC: C.LABUPHEI 09:35
PROVIDERS: ATTEND Nurse Practitioner Family
DX: F25.9 Schizoaffective disorder, unspecified (principal)

== ENCOUNTER → 2016-11-20 | Outpatient (CLI) | payer OTHER ==
[2016-11-20 11:09] LABS: C-REACTIVE PROTEIN 2.2 mg/dl (0-0.29); URIC ACID 5.8 mg/dl (2.6-7.2)
== END ==
LOC: C.LABUPHEI 09:16
PROVIDERS: ATTEND Family Medicine
DX: G89.29 Other chronic pain (principal); M60.9 Myositis, unspecified

== ENCOUNTER → 2016-11-27 | Outpatient (CLI) | payer OTHER ==
[2016-11-27 10:46] LABS: BASO % 0.3 %; BASO ABS # 0.03 K/uL (0-0.2); COMPLETE YES; EOS % 1.3 %; HEMATOCRIT 44.8 % (42-52); IG% 0.6 %; LYMPH % 34.6 %; LYMPH ABS # 3.61 K/uL (1.2-3.4); MEAN CELL VOLUME 82.4 fL (80-100); MEAN CORPUSCULAR HEMOGLOBIN 26.1 pg (25-34); MEAN CORPUSCULAR HGB CONC 31.7 g/dl (32-36); MEAN PLATELET VOLUME 9.9 fL (7.4-10.4); MONO % 8.4 %; NEUT % 54.8 %; PLATELET COUNT 219 K/uL (130-400); RED BLOOD COUNT 5.44 M/uL (4.7-6.1); WHITE BLOOD COUNT 10.42 K/uL (4.8-10.8)
== END | disposition home or self-care (01) ==
LOC: C.LABUPHEI 10:14
PROVIDERS: ATTEND Family Medicine
DX: D64.9 Anemia, unspecified (principal); A41.9 Sepsis, unspecified organism; M10.9 Gout, unspecified

== ENCOUNTER → 2016-12-11 | Outpatient (CLI) | payer OTHER ==
[2016-12-11 10:52] LABS: BASO % 0.3 %; BASO ABS # 0.03 K/uL (0-0.2); COMPLETE YES; EOS % 2.4 %; HEMATOCRIT 45.2 % (42-52); IG% 0.3 %; LYMPH % 36.4 %; LYMPH ABS # 3.24 K/uL (1.2-3.4); MEAN CELL VOLUME 86.3 fL (80-100); MEAN CORPUSCULAR HEMOGLOBIN 27.5 pg (25-34); MEAN CORPUSCULAR HGB CONC 31.9 g/dl (32-36); MEAN PLATELET VOLUME 10.1 fL (7.4-10.4); MONO % 8.8 %; NEUT % 51.8 %; PLATELET COUNT 197 K/uL (130-400); RED BLOOD COUNT 5.24 M/uL (4.7-6.1)
[2016-12-11 11:03] LABS: BLOOD UREA NITROGEN 18 mg/dl (7-18); BUN/CREATININE RATIO 16.5 (10-20); CARBON DIOXIDE 29 mmol/L (21-32); CHLORIDE 104 mmol/L (98-107); GLUCOSE 106 mg/dl (70-99); SODIUM 144 mmol/L (136-145)
[2016-12-11 11:10] LABS: CALCIUM 8.7 mg/dl (8.5-10.1)
== END ==
LOC: C.LABUPHEI 09:17
PROVIDERS: ATTEND Nurse Practitioner Family
DX: M62.81 Muscle weakness (generalized) (principal)

== ENCOUNTER → 2016-12-15 | Outpatient (CLI) | payer OTHER ==
[2016-12-15 07:39] LABS: ESTIMATED AVERAGE GLUCOSE 157 mg/dl; HA1C FLAG Normal (Normal)
== END ==
LOC: C.LABUPHEI 08:23
PROVIDERS: ATTEND Family Medicine
DX: E11.9 Type 2 diabetes mellitus without complications (principal)

== ENCOUNTER → 2016-12-25 | Outpatient (CLI) | payer OTHER ==
[~2016-12-25] MED LIST changes: -QUET-115 PO; +SRQ100 PO
[2016-12-25 11:01] LABS: BASO % 0.4 %; BASO ABS # 0.03 K/uL (0-0.2); COMPLETE YES; EOS % 3.1 %; IG% 0.5 %; LYMPH % 36.2 %; LYMPH ABS # 2.77 K/uL (1.2-3.4); MEAN CELL VOLUME 84.6 fL (80-100); MEAN CORPUSCULAR HEMOGLOBIN 27.7 pg (25-34); MEAN CORPUSCULAR HGB CONC 32.7 g/dl (32-36); MEAN PLATELET VOLUME 10.4 fL (7.4-10.4); MONO % 9.1 %; NEUT % 50.7 %; PLATELET COUNT 215 K/uL (130-400); WHITE BLOOD COUNT 7.66 K/uL (4.8-10.8)
== END ==
LOC: C.LABUPHEI 08:40
PROVIDERS: ATTEND Family Medicine
DX: F25.9 Schizoaffective disorder, unspecified (principal)

== ENCOUNTER → 2016-12-26 | Outpatient (CLI) | payer OTHER ==
[2016-12-26 10:57] LABS: ALKALINE PHOSPHATASE 85 U/L (45-117); ALT/SGPT 27 U/L (12-78); AST/SGOT 10 U/L (15-37); BLOOD UREA NITROGEN 19 mg/dl (7-18); CALCIUM 8.9 mg/dl (8.5-10.1); CARBON DIOXIDE 27 mmol/L (21-32); CHLORIDE 106 mmol/L (98-107); CREATININE 0.99 mg/dl (0.60-1.40); GLUCOSE 88 mg/dl (70-99); POTASSIUM 4.1 mmol/L (3.5-5.1); SODIUM 141 mmol/L (136-145)
== END ==
LOC: C.LABUPHEI 08:59
PROVIDERS: ATTEND Nurse Practitioner Family
DX: R56.9 Unspecified convulsions (principal); M62.81 Muscle weakness (generalized)

== ENCOUNTER → 2017-01-08 | Outpatient (CLI) | payer OTHER | LOC: C.LABUPHEI 09:18 | PROVIDERS: ATTEND Family Medicine | DX: M10.9 Gout, unspecified (principal); M62.81 Muscle weakness (generalized) ==

== ENCOUNTER → 2017-01-09 | Outpatient (CLI) | payer OTHER ==
[2017-01-09 08:58] LABS: BASO % 0.2 %; BASO ABS # 0.02 K/uL (0-0.2); COMPLETE YES; EOS % 1.6 %; HEMATOCRIT 41.2 % (42-52); IG% 0.5 %; LYMPH % 32.8 %; LYMPH ABS # 2.85 K/uL (1.2-3.4); MEAN CELL VOLUME 85.3 fL (80-100); MEAN CORPUSCULAR HEMOGLOBIN 27.5 pg (25-34); MEAN CORPUSCULAR HGB CONC 32.3 g/dl (32-36); MEAN PLATELET VOLUME 9.8 fL (7.4-10.4); MONO % 8.4 %; NEUT % 56.5 %; PLATELET COUNT 216 K/uL (130-400); RED BLOOD COUNT 4.83 M/uL (4.7-6.1); WHITE BLOOD COUNT 8.68 K/uL (4.8-10.8)
== END ==
LOC: C.LABUPHEI 08:48
PROVIDERS: ATTEND Family Medicine
DX: K92.2 Gastrointestinal hemorrhage, unspecified (principal)

== ENCOUNTER → 2017-01-15 | Outpatient (CLI) | payer OTHER ==
[2017-01-15 10:56] LABS: URINE APPEARANCE CLEAR (CLEAR); URINE BILIRUBIN NEG (NEG); URINE COLOR YELLOW; URINE NITRITE NEG (NEG); URINE PH 6.5 (4.5-7.5); URINE SPECIFIC GRAVITY 1.027 (1.000-1.030); UROBILINOGEN NEG (NEG)
[2017-01-15 10:59] LABS: MANUAL MICROSCOPIC REQUIRED? NO; REVIEW REQ? NO
== END ==
LOC: C.LABUPHEI 08:52
PROVIDERS: ATTEND Family Medicine
DX: R41.82 Altered mental status, unspecified (principal)

== ENCOUNTER → 2017-01-22 | Outpatient (CLI) | payer OTHER ==
[2017-01-22 10:04] LABS: BASO % 0.4 %; BASO ABS # 0.04 K/uL (0-0.2); COMPLETE YES; EOS % 3.7 %; HEMATOCRIT 42.4 % (42-52); IG% 0.6 %; LYMPH ABS # 3.12 K/uL (1.2-3.4); MEAN CELL VOLUME 87.8 fL (80-100); MEAN CORPUSCULAR HEMOGLOBIN 28.4 pg (25-34); MEAN CORPUSCULAR HGB CONC 32.3 g/dl (32-36); MEAN PLATELET VOLUME 10.2 fL (7.4-10.4); MONO % 9.5 %; NEUT % 50.8 %; PLATELET COUNT 219 K/uL (130-400); RED BLOOD COUNT 4.83 M/uL (4.7-6.1); WHITE BLOOD COUNT 8.92 K/uL (4.8-10.8)
== END | disposition home or self-care (01) ==
LOC: C.LABUPHEI 08:48
PROVIDERS: ATTEND Family Medicine
DX: M62.81 Muscle weakness (generalized) (principal)

== ENCOUNTER → 2017-01-23 | Outpatient (CLI) | payer OTHER ==
--- NOTE | 2017-01-25 11:40 | CODING QUERY NO DIAGNOSIS ---
TREATMENT RENDERED WITHOUT A DIAGNOSIS To promote full compliance with coding requirements relating to patient care, physician participation is requested in all cases of fur dresser uncertainty. Please assist us with providing a diagnosis/symptom for the test(s) below: A diagnosis/symptom was not documented on your Order. A valid diagnosis/symptom is required to bill all insurances. Please remember that we are unable to code a diagnosis of rule out, probable, possible, questionable, or suspected. Tests that require a diagnosis: DOS 01/23 * PSA DIAGNOSIS: Provider Signature: Date: Thank you Nai Garcia Health Information Management Once completed, please kindly fax back to [phone] For questions please call [phone]
== END ==
LOC: C.LABUPHEI 09:10
PROVIDERS: ATTEND Nurse Practitioner Family
DX: Z12.5 Encounter for screening for malignant neoplasm of prostate (principal)

== ENCOUNTER → 2017-01-24 | Outpatient (CLI) | payer OTHER ==
[2017-01-24 19:10] LABS: URINE APPEARANCE CLEAR (CLEAR); URINE BILIRUBIN NEG (NEG); URINE COLOR YELLOW; URINE NITRITE NEG (NEG); URINE SPECIFIC GRAVITY 1.014 (1.000-1.030); UROBILINOGEN NEG (NEG)
[2017-01-24 19:20] LABS: MANUAL MICROSCOPIC REQUIRED? NO; REVIEW REQ? NO
== END ==
LOC: C.LABSPEC 17:04
PROVIDERS: ATTEND Family Medicine
DX: R33.0 Drug induced retention of urine (principal)

== ENCOUNTER → 2017-02-15 | Outpatient (CLI) | payer OTHER ==
[2017-02-15 10:29] LABS: C-REACTIVE PROTEIN 1.9 mg/dl (0-0.29); THYROID STIMULATING HORMONE 2.06 uIu/ml (0.300-4.500); URIC ACID 7.2 mg/dl (2.6-7.2)
--- NOTE | 2017-02-25 21:26 | CODING QUERY NO DIAGNOSIS ---
TREATMENT RENDERED WITHOUT A DIAGNOSIS 46 To promote full compliance with coding requirements relating to patient care, physician participation is requested in all cases of marine insurance claim examiner uncertainty. Please assist us with providing a diagnosis/symptom for the test(s) below: A diagnosis/symptom was not documented on your Order. A valid diagnosis/symptom is required to bill all insurances. Please remember that we are unable to code a diagnosis of rule out, probable, possible, questionable, or suspected. DOS 02/15/17 Tests that require a diagnosis: * TSH DIAGNOSIS: * URIC ACID DIAGNOSIS: * CRP DIAGNOSIS: * ESR DIAGNOSIS: *ON YOUR ORDER YOU HAVE DX CODE G89.2, THIS IS AN INVALID CODE, PLEASE ADD CORRECT DX CODE Provider Signature: Date: Thank you Michelle Rodriguez [facility] Once completed, please kindly fax back to [phone] For questions please call [phone]
== END ==
LOC: C.LABUPHEI 09:03
PROVIDERS: ATTEND Nurse Practitioner Family
DX: M62.81 Muscle weakness (generalized) (principal); M10.9 Gout, unspecified

== ENCOUNTER → 2017-03-18 | Outpatient (CLI) | payer OTHER ==
[2017-03-18 08:27] LABS: ESTIMATED AVERAGE GLUCOSE 128 mg/dl; HA1C FLAG Normal (Normal)
== END ==
LOC: C.LABUPHEI 07:42
PROVIDERS: ATTEND Nurse Practitioner Family
DX: R73.9 Hyperglycemia, unspecified (principal)

== ENCOUNTER → 2017-04-15 | Outpatient (CLI) | payer OTHER ==
[~2017-04-15] MED LIST changes: +QUET-115 PO; -SRQ100 PO
[2017-04-15 08:33] LABS: BASO % 0.5 %; BASO ABS # 0.04 K/uL (0-0.2); COMPLETE YES; EOS % 2.4 %; HEMATOCRIT 40.4 % (42-52); IG% 0.4 %; LYMPH % 41.6 %; MEAN CORPUSCULAR HGB CONC 34.4 g/dl (32-36); MEAN PLATELET VOLUME 10.6 fL (7.4-10.4); MONO % 6.9 %; NEUT % 48.2 %; PLATELET COUNT 221 K/uL (130-400); RED BLOOD COUNT 4.49 M/uL (4.7-6.1); WHITE BLOOD COUNT 8.42 K/uL (4.8-10.8)
--- NOTE | 2017-04-17 13:15 | CODING QUERY NO DIAGNOSIS ---
: 1950 TREATMENT RENDERED WITHOUT A DIAGNOSIS PLEASE PROVIDE COPY OF PHYSICIAN ORDER To promote full compliance with coding requirements relating to patient care, physician participation is requested in all cases of specialty plant supervisor uncertainty. Please assist us with providing a copy of the signed physician order including diagnoses for the following services that were rendered on 04/15/17: CBC W/ DIFF. Thank you [facility] Information Management Once completed, please kindly fax back to [phone] For questions please call [phone]
== END ==
LOC: C.LABUPHEI 08:07
PROVIDERS: ATTEND Family Medicine
DX: Z01.89 Encounter for other specified special examinations (principal)

== ENCOUNTER → 2017-04-24 | Outpatient (CLI) | payer OTHER ==
[~2017-04-24] MED LIST changes: -QUET-115 PO; +SRQ100 PO
[2017-04-24 08:51] LABS: URINE APPEARANCE CLOUDY (CLEAR); URINE BILIRUBIN NEG (NEG); URINE COLOR DK YELLOW; URINE EPITHELIAL CELL AUTO >30 /lpf (0-5); URINE NITRITE POS (NEG); URINE SPECIFIC GRAVITY 1.028 (1.000-1.030); UROBILINOGEN NEG (NEG)
[2017-04-24 08:55] LABS: MANUAL MICROSCOPIC REQUIRED? NO; REVIEW REQ? YES
== END | disposition home or self-care (01) ==
LOC: C.LABUPHEI 08:01
PROVIDERS: ATTEND Nurse Practitioner Family
DX: R41.82 Altered mental status, unspecified (principal)

== ENCOUNTER → 2017-06-14 | Outpatient (CLI) | payer OTHER ==
[~2017-06-14] MED LIST changes: +QUET-115 PO; -SRQ100 PO
[2017-06-14 09:18] LABS: ESTIMATED AVERAGE GLUCOSE 123 mg/dl; HA1C FLAG Normal (Normal)
== END ==
LOC: C.LABUPUNI 08:20
PROVIDERS: ATTEND Nurse Practitioner Family
DX: E11.9 Type 2 diabetes mellitus without complications (principal)

== ENCOUNTER → 2017-07-15 | Outpatient (CLI) | payer OTHER ==
[~2017-07-15] MED LIST changes: +DIVA125C8 PO; -[UNRECOGNIZED DRUG - CODE] PO
[2017-07-15 09:06] LABS: BASO % 0.4 %; BASO ABS # 0.04 K/uL (0-0.2); EOS % 0.8 %; EOS ABS # 0.09 K/uL (0-0.5); HEMATOCRIT 42.5 % (42-52); HEMOGLOBIN 14.3 g/dL (14.0-18.0); IG# 0.06 K/uL (0.00-0.02); LYMPH % 26.9 %; LYMPH ABS # 2.92 K/uL (1.2-3.4); MEAN CELL VOLUME 91.6 fL (80-100); MEAN CORPUSCULAR HEMOGLOBIN 30.8 pg (25-34); MEAN CORPUSCULAR HGB CONC 33.6 g/dl (32-36); MEAN PLATELET VOLUME 10.6 fL (7.4-10.4); MONO % 7.1 %; MONO ABS # 0.77 K/uL (0.11-0.59); NEUT % 64.2 %; NEUT ABS # 6.99 K/uL (1.4-6.5); PLATELET COUNT 195 K/uL (130-400); RED CELL DISTRIBUTION WIDTH CV 13.3 % (11.5-14.5); RED CELL DISTRIBUTION WIDTH SD 43.9 fL (36.4-46.3); WHITE BLOOD COUNT 10.87 K/uL (4.8-10.8)
== END ==
LOC: C.LABUPUNI 07:36
PROVIDERS: ATTEND Nurse Practitioner Family
DX: E11.9 Type 2 diabetes mellitus without complications (principal)

== ENCOUNTER → 2017-07-22 | Outpatient (CLI) | payer OTHER | LOC: C.LABUPUNI 08:50 | PROVIDERS: ATTEND Nurse Practitioner Family | DX: R41.82 Altered mental status, unspecified (principal) ==

== ENCOUNTER → 2017-09-11 | Outpatient (CLI) | payer OTHER ==
[~2017-09-11] MED LIST changes: +ACET-1693 PO; -ACET325T96 PO
[2017-09-11 09:48] LABS: BASO % 0.3 %; BASO ABS # 0.03 K/uL (0-0.2); EOS % 3.1 %; EOS ABS # 0.33 K/uL (0-0.5); HEMATOCRIT 42.8 % (42-52); HEMOGLOBIN 14.5 g/dL (14.0-18.0); IG# 0.05 K/uL (0.00-0.02); LYMPH % 41.2 %; LYMPH ABS # 4.33 K/uL (1.2-3.4); MEAN CELL VOLUME 91.3 fL (80-100); MEAN CORPUSCULAR HEMOGLOBIN 30.9 pg (25-34); MEAN CORPUSCULAR HGB CONC 33.9 g/dl (32-36); MEAN PLATELET VOLUME 10.5 fL (7.4-10.4); MONO % 7.6 %; NEUT % 47.3 %; NEUT ABS # 4.98 K/uL (1.4-6.5); PLATELET COUNT 197 K/uL (130-400); RED CELL DISTRIBUTION WIDTH CV 13.4 % (11.5-14.5); RED CELL DISTRIBUTION WIDTH SD 43.8 fL (36.4-46.3); WHITE BLOOD COUNT 10.52 K/uL (4.8-10.8)
[2017-09-11 10:41] LABS: ALBUMIN 3.1 gm/dl (3.4-5.0); ALKALINE PHOSPHATASE 81 U/L (45-117); ALT/SGPT 22 U/L (12-78); AST/SGOT 11 U/L (15-37); BLOOD UREA NITROGEN 22 mg/dl (7-18); CALCIUM 8.6 mg/dl (8.5-10.1); CARBON DIOXIDE 27 mmol/L (21-32); CREATININE 0.92 mg/dl (0.60-1.40); GLUCOSE 51 mg/dl (70-99); POTASSIUM 3.7 mmol/L (3.5-5.1); SODIUM 141 mmol/L (136-145); TOTAL PROTEIN 6.4 gm/dl (6.4-8.2)
== END | disposition home or self-care (01) ==
LOC: C.LABUPUNI 09:28
PROVIDERS: ATTEND Nurse Practitioner Family
DX: I25.10 Atherosclerotic heart disease of native coronary artery without angina pectoris (principal)

== ENCOUNTER → 2018-01-24 | Outpatient (CLI) | payer OTHER ==
[~2018-01-24] MED LIST changes: -VENL150C PO; +VENL150C71 PO
== END ==
LOC: C.LABUPUNI 08:04
PROVIDERS: ATTEND Nurse Practitioner Family
DX: M10.9 Gout, unspecified (principal)

== ENCOUNTER 2020-01-04 16:29 | Inpatient (IN) ==
[2020-01-04] MEDS ORDERED: VANCOMYCIN CONSULT ACTIVE PRN (16:45)
[2020-01-04] MEDS ORDERED: LEVOFLOXACIN/D5W 750 MG/150 ML BAG IV SCH (16:45)
[2020-01-04] MEDS ORDERED: CEFEPIME 2,000 MG/20 ML VIAL IV STA (16:45)
[2020-01-04] MEDS ORDERED: VANCOMYCIN HCL 1,000 MG in SODIUM CHLORIDE 0.9% 500 ML IV ONE (16:45)
[2020-01-04] MEDS ORDERED: ACETAMINOPHEN 1,000 MG/100 ML VIAL IV STA (16:46)
[2020-01-04] MEDS ORDERED: VANCOMYCIN HCL 1,500 MG in SODIUM CHLORIDE 0.9% 500 ML IV STA (16:55)
[2020-01-04 17:07] LABS: Basophils # (auto) 0.01 K/uL (0-0.2); Basophils % (auto) 0.1 %; Eosinophils # (auto) 0.01 K/uL (0-0.5); Eosinophils % (auto) 0.1 %; Hematocrit (blood only) 49.1 % (42-52); Hemoglobin 15.9 g/dL (14.0-18.0); Immature Granulocytes # (auto) 0.19 K/uL (0.00-0.02); Immature Granulocytes % (auto) 1.5 %; Lymphocytes # (auto) 1.51 K/uL (1.2-3.4); Lymphocytes % (auto) 11.8 %; Mean Corpuscular Hemoglobin 32.1 pg (25-34); Mean Corpuscular Hgb Conc 32.4 g/dL (32-36); Mean Corpuscular Volume 99.2 fL (80-100); Mean Platelet Volume 11.7 fL (7.4-10.4); Monocytes # (auto) 0.92 K/uL (0.11-0.59); Monocytes % (auto) 7.2 %; Neutrophils # (auto) 10.14 K/uL (1.4-6.5); Neutrophils % (auto) 79.3 %; Platelet Count 199 K/uL (130-400); RDW Coefficient of Variation 14.2 % (11.5-14.5); RDW Standard Deviation 50.5 fL (36.4-46.3); Red Blood Count 4.95 M/uL (4.7-6.1); White Blood Count 12.78 K/uL (4.8-10.8)
[2020-01-04 17:11] LABS: Base Excess VBG 6.1 mEq/L; Oxygen Saturation VBG 77.1 %; pH VBG 7.47 (7.36-7.41)
[2020-01-04] MEDS ORDERED: SODIUM CHLORIDE 0.9% 1000ML 1,000 ML IV ONE ×2 (17:12→17:31)
[2020-01-04 17:19] LABS: INR 1.1 (0.9-1.1); Partial Thromboplastin Ratio 0.9; Partial Thromboplastin Time 26.2 Seconds (21.0-31.0); Prothrombin Time 11.2 Seconds (9.0-12.0)
[2020-01-04 17:28] LABS: Appearance Urine Cloudy (Clear); Blood Urine 3+ (Negative); Color Urine Orange; Epithelial Cell Urine Auto >30 /lpf (0-5); Glucose Urine UA Negative (Negative); Ketones Urine Trace (Negative); Leukocyte Esterase Urine 1+ (Negative); Nitrite Urine Positive (Negative); Protein Urine 2+ (Negative); Specific Gravity Urine 1.038 (1.000-1.030); Urobilinogen Urine Negative (Negative)
[2020-01-04 17:29] LABS: Alanine Aminotransferase 19 U/L (12-78); Albumin Level 2.8 gm/dl (3.4-5.0); Aspartate Aminotransferase 8 U/L (15-37); BUN Creatinine Ratio 27.6 (10-20); Blood Urea Nitrogen 58 mg/dl (7-18); Calcium 10.1 mg/dl (8.5-10.1); Carbon Dioxide 30 mmol/L (21-32); Chloride 118 mmol/L (98-107); Creatinine Clr Calc Pharmacy 30.3 ml/min; Est GFR (African American) 35.4; Est GFR (Non-African American) 30.6; Glucose 204 mg/dl (70-99); Magnesium 3.2 mg/dl (1.8-2.4); Potassium 4.5 mmol/L (3.5-5.1); Sodium 154 mmol/L (136-145)
--- NOTE | 2020-01-04 17:30 | XRay Report ---
XR chest 1V portable CLINICAL HISTORY: SEPSIS COMPARISON STUDY: 11/26/2018 FINDINGS: The heart is mildly enlarged. There are low lung volumes. There are progressive bibasilar o pacities, atelectasis versus pneumonia. There is no overt failure. There are no large pleural effusio ns.[ IMPRESSION: Low lung volumes with progressive bibasilar opacities. ACT 112: Negative or not required by law. Electronically signed by: Carmelo Blankenship M.D. 01/04/2020 5:28 PM
[2020-01-04 17:31] LABS: Bilirubin Urine Negative (Negative); Ictotest Urine Negative (Negative)
[2020-01-04 17:33] LABS: iSTAT Creatinine 1.9 mg/dl (0.6-1.3); iSTAT Hemoglobin 15.3 g/dl (14.0-18.0); iSTAT Ionized Calcium 1.11 mmol/l (1.12-1.32); iSTAT Potassium 4.5 mmol/L (3.3-5.0)
[2020-01-04 17:37] LABS: Albumin Globulin Ratio 0.6 (0.9-2); Alkaline Phosphatase 67 U/L (45-117); Bilirubin,Total 0.6 mg/dl (0.2-1); Creatine Kinase 38 U/L (39-308); Creatine Kinase MB < 1.0 ng/ml (0.5-3.6); Ferritin 504.2 ng/ml (8-388); Globulin 4.8 gm/dl (2.5-4.0); Total Protein 7.6 gm/dl (6.4-8.2); Troponin I < 0.015 ng/ml (0-0.045)
[2020-01-04] MEDS ORDERED: SODIUM CHLORIDE 0.9% 250 ML IV ONE (17:38)
[2020-01-04 17:40] LABS: Bacteria Urine Automated 2+ (Negative); RBC Urine Automated >30 /hpf (0-4)
--- NOTE | 2020-01-04 18:32 | History & Physical Report ---
Date of Service January 04, 2020 Assessment & Plan (1) Sepsis associated hypotension: Source urine vs. PNA as below Hypotension responded to 2.25 L IV bolus in ER. Will continue LR @125 ml/hr Follow up blood and urine cultures (2) Acute respiratory failure with hypoxia: Aim O2 sats > 90%. (3) Pneumonia: Elevated procalcitonin and bilateral opacities on chest x-ray Continue broad-spectrum antibiotics as above. (4) Urinary tract infection: Follow-up urine culture. Broad-spectrum antibiotics as above. Discontinue urinary catheter once more alert and stable. (5) Acute kidney injury: Suspected prerenal due to acute infection, dehydration (poor oral intake) and meloxicam use. IV fluid replacement as above. Repeat BMP in a.m. (6) Hypernatremia: Suspected secondary to dehydration as above for acute kidney injury. Repeat BMP in a.m. Water deficit 1.3L (7) Altered mental state: CT head pending Suspected secondary to sepsis as above with background of chronic opiate use, dementia and schizoaffective disorder (8) Schizoaffective disorder, chronic condition: Patient currently very lethargic. Taking both Seroquel 100 mg twice daily (although notably on seroquel 150mg TID in 2015) and haloperidol 25 mg IM monthly as per med rec. We will hold Seroquel due to altered mental state above with Haldol as needed as below Consult psychiatry given concern his medication are contributing towards current lethargic state (9) Psychosis: Haloperidol 2 mg p.o. every 4 hourly as needed or if unable to take p.o. 5 mg IM every 4 hourly as needed (10) Dementia: Noted history of stroke with old left cerebral infarct. Although Alzheimers noted on prior problem list I suspect his prior stroke and medication are likely contributory. (11) Coronary artery disease: Unclear history of this. No prior stents or CABG Not on chronic antiplatelets ?due to history of gastrointestinal hemorrhage noted (12) Diabetes: HbA1C 5.5 in September 2018, will repeat in AM. Hold lantus 10 units QAM while NPO and will just treat with Novolog correction factor for now. (13) Hyperlipidemia: Hold simvastatin while NPO (14) GERD (gastroesophageal reflux disease): Switch omeprazole PO 20mg QAM to famotidine 20mg IV daily while NPO (15) Chronic prescription opiate use: Fentanyl patch removed on admission Unclear what chronic opiates treating as diagnosis for Fentanyl noted to be hallux valgus on prior snf documentation. Also noted to have diagnosis of pain in joints of right hand and chronic gout Also taking Meloxicam 15mg QAM and [place] Q6H OFE as per prior documentation (16) Peripheral vascular disease: Noted history of this. Not on antiplatelets are noted above. Holding simvastatin while NPO and lethargic. (17) Chronic gout: Will hold allopurinol while unable to take PO meds (18) Seizure disorder: Valproic acid and Keppra levels ordered (although notably these have previously been normal or low). Switch both to intravenous administration while patient unable to take PO. EEG in AM. (19) Muscle weakness: Notable history for this with patient effectively bed-bound (20) Depression: Continue venlafaxine once patient able to take PO meds (21) DVT prophylaxis: Start on heparin 5000 units SQ Q8H once CT head r/o acute intracranial hemorrhage Admission and Anticipated Discharge Date Admission Date: 01/04/2020 History of Present Illness Chief Complaint: Lethargy, hypoxia Primary Care Provider: [facility] Fede Hinojosa is a 69 year old who presents from [facility] due to lethargy and hypoxia. History from patient is currently unobtainable. History obtained from Rebecca BARONE @ [facility]. Baseline patient is mostly bed- bound, he would throw himself out of a wheelchair. She reports he is not fed himself for a few months now due to dementia. He frequently becomes agitated and yells out. He was more recently noted to be pocketing food therefore recently changed to pured diets 2 days ago. Possibly aspirated food last week. No fevers noted. Around 11am today he was noticed to be pale, clammy, lethargic. Heart rate 113 bpm. No cough or shortness of breath were noted. No positive cases of COVID-19 have been detected at [facility], although no routine asymptomatic swabs are currently being performed. Chest x-ray ordered which showed dense left lower lobe infiltrate and he was started on Augmentin. This nurse saw the patient at 2 PM and he was noted to be very lethargic with SPO2 dropping therefore ambulance was called for patient to be transferred to the ER for further evaluation. Discussed his care with power of deputy county attorney, his brother, Octaviano over the phone. He reports he has been extremely unhappy with the care at [facility], concerned about how lethargic his brother is been (although this has been going on for weeks), not getting enough to eat and drink, not changing his diaper frequently enough. Reports he was told today that his brothers heart is failing and this is why he was unwell, although he suspected all along it was an infection like he had previously. He confirms the patient is for full resuscitation and would like everything possibly done. Allergies Allergy/AdvReac Type Severity Reaction Status Date / Time No Known Allergies Allergy Unverified 11/26/18 13:11 Home Medications Home Medications Medication Instructions Recorded Confirmed Type acetaminophen 650 mg PO Q8H PRN MDD 3G 11/26/18 01/04/20 History allopurinol 200 mg PO QAM 11/26/18 01/04/20 History bisacodyl [Dulcolax (bisacodyl)] 10 mg NC DAILY PRN 11/26/18 01/04/20 History calcium carbonate-vitamin D3 1 tab PO QAM 11/26/18 01/04/20 History [Calcium 500 + D] divalproex 250 mg PO TID 11/26/18 01/04/20 History gabapentin 600 mg PO TID 11/26/18 01/04/20 History haloperidol decanoate [Haldol 25 mg IM MONTHLY 11/26/18 01/04/20 History Decanoate] hydrocodone-acetaminophen 1 tab PO Q6H 11/26/18 01/04/20 History insulin glargine [Lantus Solostar 10 unit SUBCUT QA 11/26/18 01/04/20 History U-100 Insulin] levetiracetam [Keppra] 750 mg PO BID 11/26/18 01/04/20 History lidocaine 1 applic TOPICAL QAM 11/26/18 01/04/20 History omeprazole 20 mg PO QAM 11/26/18 01/04/20 History quetiapine [Seroquel] 100 mg PO BID 11/26/18 01/04/20 History sennosides-docusate sodium 2 tab PO QAM 11/26/18 01/04/20 History [Senna-S] simvastatin [Zocor] 10 mg PO HS 11/26/18 01/04/20 History amoxicillin-pot clavulanate 1 tab PO BID 01/04/20 01/04/20 History cholecalciferol (vitamin D3) 125 mcg PO DAILY 01/04/20 01/04/20 History fentanyl 1 patch TRANSDERMAL Q72H 01/04/20 01/04/20 History haloperidol lactate 2 mg PO BID 01/04/20 01/04/20 History loperamide 2 mg PO Q8H PRN 01/04/20 01/04/20 History meloxicam 15 mg PO QAM 01/04/20 01/04/20 History venlafaxine 75 mg PO HS 01/04/20 01/04/20 History venlafaxine 150 mg PO QAM 01/04/20 01/04/20 History vitamin B complex-folic acid 1 cap PO QAM 01/04/20 01/04/20 History Past Med/Surg History Medical History (Updated 01/04/20 @ 21:23 by Vinny Fenton MD) Alzheimer disease Chronic gout Chronic prescription opiate use Dementia (Chronic) Diabetes (Chronic) Gastrointestinal hemorrhage GERD (gastroesophageal reflux disease) (Chronic) Hypertension (Acute) Muscle weakness Peripheral vascular disease Schizoaffective disorder, chronic condition (Chronic) Seizure disorder Stroke (Resolved) Urinary tract infection Social History Communication Ability: Impaired Current Living Situation: Care Home Feels Safe at Home: Yes Smoking Status: Unknown if ever smoked Review of Systems Review of Systems: Unobtainable due to cognitive status Physical Exam Constitutional: + frail appearing and + disheveled; + not well developed, + not well nourished and no acute distress Eyes: + anicteric sclerae, PERRL (sluggish, ) and + abnormal pupil size (b/l equal miosis) ENMT: Mouth: + dry oral mucous membranes (poor dental hygiene) Neck: trachea midline Respiratory: normal respiratory effort; no respiratory distress, no labored breathing and does not use accessory muscles Auscultation: + diminished lung sounds (bilateral, especially at bases); no crackles, no rales, no rhonchi and no wheezes Cardiovascular: Rate/Rhythm: regular rhythm and + tachycardic Heart Sounds: + murmur (holosystolic apex 4/6 > ejection LUSB 3/6) Vessels: no JVD Extremities: + abnormal capillary refill (4-5s in peripheries), no calf tenderness and no pedal edema Gastrointestinal (Abdomen): Inspection/Auscultation: abdomen normal to inspection and normal bowel sounds Percussion/Palpation: abdomen soft; abdomen nontender, no guarding and abdomen not rigid Musculoskeletal: Generalized muscle wasting bilaterally. Neurologic: + obtunded; + not awake (moving eyelids but no purposeful movements) Psychiatric: Orientation: + not alert and + not oriented x 3 Motor Behavior: + psychomotor retardation Speech: + mute Genitourinary: no CVA tenderness Lymphatic: no cervical or axillary lymphadenopathy Results & Data Results & Data ([facility]) Vital Signs (Past 12 Hours) Vital Signs Temp Pulse Pulse Resp BP BP Pulse Ox 01/04/20 17:45 106 H 25 H 96/68 L 93 01/04/20 17:30 109 H 28 H 97/70 L 91 01/04/20 17:15 112 H 28 H 85/68 L 90 01/04/20 17:05 113 H 28 H 88/69 L 92 01/04/20 16:47 88 L 01/04/20 16:36 36.4 C L 115 H 30 H 92/77 L 88 L Diagnostic Findings XR chest 1V portable IMPRESSION: Low lung volumes with progressive bibasilar opacities. ECG Indication: altered mental status Rate (beats per minute): 112 Rhythm: sinus tachycardia Findings: + other (voltage criteria for LVH) Comparison ECG Date: from (November 26, 2018) Change: the following changes noted (increased rate, TW flattening no longer present inferiorly) Code Status & VTE Plan Code Status Full as discussed with his brother who is POA VTE Prophylaxis Plan VTE Prophylaxis will be ordered: Yes Critical Care Time Critical Care Time: Yes Total Critical Care Time: 35 Patient has life-threatening sepsis with vital organ dysfunction. High complexity medical care. Including multiple reassessments, ABG interpretation. Discussion with [facility] RN, POA, ICU PA, material dispatcher, [facility] nurses. PG Care Time/CCT Total # of Minutes Spent Total Time Spent with Patient: Total time spent is greater than 50% in coordination of care (as documented) at patient's floor/unit and/or counseling patient: Critical Care Time: Yes Total Critical Care Time: 35 Coding Level of Care Code 73457 Initial Inpt Care Lvl 3 Diagnoses Sepsis associated hypotension A41.9; I95.9 Acute respiratory failure with hypoxia J96.01 Pneumonia J18.9 Urinary tract infection N39.0 Acute kidney injury N17.9 Hypernatremia E87.0 Altered mental state R41.82 Schizoaffective disorder, chronic condition F25.8 Psychosis F29 Dementia F03.90 Coronary artery disease I25.10 Diabetes E11.9 Hyperlipidemia E78.5 GERD (gastroesophageal reflux disease) K21.9 Chronic prescription opiate use Z79.891 Peripheral vascular disease I73.9 Chronic gout [id number] Seizure disorder G40.909 Muscle weakness M62.81 Depression F32.9 DVT prophylaxis Z29.9 Additional Codes Critical Care Time - Critical Care Time: Yes ([id number])
[2020-01-04 18:34] LABS: Adenovirus PCR Not Detected (NotDetected); Bordetella parapertussis PCR Not Detected (NotDetected); Bordetella pertussis PCR Not Detected (NotDetected); Chlamydia pneumoniae PCR Not Detected (NotDetected); Coronavirus 229E PCR Not Detected (NotDetected); Coronavirus HKU1 PCR Not Detected (NotDetected); Coronavirus NL63 PCR Not Detected (NotDetected); Coronavirus OC43PCR Not Detected (NotDetected); Human Metapneumovirus PCR Not Detected (NotDetected); Influenza A PCR Not Detected (NotDetected); Influenza B PCR Not Detected (NotDetected); Mycoplasma pneumoniae PCR Not Detected (NotDetected); Parainfluenza Virus 1 PCR Not Detected (NotDetected); Parainfluenza Virus 2 PCR Not Detected (NotDetected); Parainfluenza Virus 3 PCR Not Detected (NotDetected); Parainfluenza Virus 4 PCR Not Detected (NotDetected); Respiratory Syncytial VirusPCR Not Detected (NotDetected); Rhinovirus/Enterovirus PCR Not Detected (NotDetected)
[2020-01-04] MEDS ORDERED: LACTATED RINGER'S 1,000 ML IV ONE ×2 (19:41→22:37)
--- NOTE | 2020-01-04 19:57 | Emergency Department Note ---
History of Present Illness General Chief complaint: Shortness of Breath/Dyspnea Stated complaint: SOB, UNRESP, Time Seen by Provider: 01/04/20 16:39 Source: EMS, RN notes reviewed and old records reviewed Mode of arrival: EMS Limitations: altered mental status History of Present Illness Provider complaint: Fever Onset (ago): hour(s) 2 Maximum Pain Intensity: 0 Associated symptoms: + diaphoresis and + shortness of breath Treatments prior to arrival: none This is a 69-year-old male who arrives obtunded to the emergency department. Upon arrival to the emergency department patient is extremely diaphoretic and hypoxic. It is noted that the patient was just made a full code prior to arrival in the emergency department. He was running a temperature at [facility] however upon arrival to the emergency department he is hypotensive and tachycardic. He does withdraw from painful stimuli however is otherwise nonresponsive. Home Medications Home Medications Medication Instructions Recorded Confirmed Type acetaminophen 650 mg PO Q8H PRN MDD 3G 11/26/18 01/04/20 History allopurinol 200 mg PO QAM 11/26/18 01/04/20 History bisacodyl [Dulcolax (bisacodyl)] 10 mg AL DAILY PRN 11/26/18 01/04/20 History calcium carbonate-vitamin D3 1 tab PO QAM 11/26/18 01/04/20 History [Calcium 500 + D] divalproex 250 mg PO TID 11/26/18 01/04/20 History gabapentin 600 mg PO TID 11/26/18 01/04/20 History haloperidol decanoate [Haldol 25 mg IM MONTHLY 11/26/18 01/04/20 History Decanoate] hydrocodone-acetaminophen 1 tab PO Q6H 11/26/18 01/04/20 History insulin glargine [Lantus Solostar 10 unit SUBCUT QAM 11/26/18 01/04/20 History U-100 Insulin] levetiracetam [Keppra] 750 mg PO BID 11/26/18 01/04/20 History lidocaine 1 applic TOPICAL QAM 11/26/18 01/04/20 History omeprazole 20 mg PO QAM 11/26/18 01/04/20 History quetiapine [Seroquel] 100 mg PO BID 11/26/18 01/04/20 History sennosides-docusate sodium 2 tab PO QAM 11/26/18 01/04/20 History [Senna-S] simvastatin [Zocor] 10 mg PO HS 11/26/18 01/04/20 History amoxicillin-pot clavulanate 1 tab PO BID 01/04/20 01/04/20 History cholecalciferol (vitamin D3) 125 mcg PO DAILY 01/04/20 01/04/20 History fentanyl 1 patch TRANSDERMAL Q72H 01/04/20 01/04/20 History haloperidol lactate 2 mg PO BID 01/04/20 01/04/20 History loperamide 2 mg PO Q8H PRN 01/04/20 01/04/20 History meloxicam 15 mg PO QAM 01/04/20 01/04/20 History venlafaxine 75 mg PO HS 01/04/20 01/04/20 History venlafaxine 150 mg PO QAM 01/04/20 01/04/20 History vitamin B complex-folic acid 1 cap PO QAM 01/04/20 01/04/20 History Allergies Allergy/AdvReac Type Severity Reaction Status Date / Time No Known Allergies Allergy Unverified 11/26/18 13:11 Past Med/Surg History Medical History (Updated 01/04/20 @ 21:23 by Vinny Fenton MD) Alzheimer disease Chronic gout Chronic prescription opiate use Dementia (Chronic) Diabetes (Chronic) Gastrointestinal hemorrhage GERD (gastroesophageal reflux disease) (Chronic) Hypertension (Acute) Muscle weakness Peripheral vascular disease Schizoaffective disorder, chronic condition (Chronic) Seizure disorder Stroke (Resolved) Urinary tract infection Social History Communication Ability: Impaired Current Living Situation: Senior Care Feels Safe at Home: Yes Smoking Status: Unknown if ever smoked Review of Systems Unobtainable due to cognitive status Physical Exam Vital Signs Vital Signs - 24 hr 01/04/20 16:36 01/04/20 16:47 01/04/20 17:05 Temperature 36.4 C L Temperature Source Oral Pulse Rate 115 H Pulse Rate [Apical] 113 H Pulse Rate from SpO2 Sensor Respiratory Rate 30 H 28 H Blood Pressure 92/77 L Blood Pressure [Left Arm] 88/69 L Blood Pressure Mean 82 Blood Pressure Mean [Left Arm] 75 Pulse Oximetry 88 L 88 L 92 Oxygen Delivery Method Room Air Nasal Cannula Oxymask Oxymask Oxygen Flow Rate 6 15 Sepsis Recent Fever Within 48 Hours No Sepsis New/Unexplained Change in Mental Status Yes Sepsis Action Taken by Nursing No Action Required Oxygen Flow Rate - Titration 15 Pulse Oximetry Post Tiitration 91 01/04/20 17:15 01/04/20 17:30 01/04/20 17:45 Temperature Temperature Source Pulse Rate 106 H Pulse Rate [Apical] 112 H 109 H Pulse Rate from SpO2 Sensor Respiratory Rate 28 H 28 H 25 H Blood Pressure 96/68 L Blood Pressure [Left Arm] 85/68 L 97/70 L Blood Pressure Mean 72 Blood Pressure Mean [Left Arm] 73 79 Pulse Oximetry 90 91 93 Oxygen Delivery Method Oxymask Oxymask Oxymask Oxygen Flow Rate 15 Sepsis Recent Fever Within 48 Hours Sepsis New/Unexplained Change in Mental Status Sepsis Action Taken by Nursing Oxygen Flow Rate - Titration Pulse Oximetry Post Tiitration 01/04/20 18:15 01/04/20 18:30 Temperature Temperature Source Pulse Rate 102 H 93 H Pulse Rate [Apical] Pulse Rate from SpO2 Sensor 84 Respiratory Rate 24 22 Blood Pressure 87/71 L 87/60 L Blood Pressure [Left Arm] Blood Pressure Mean 76 61 Blood Pressure Mean [Left Arm] Pulse Oximetry 96 Oxygen Delivery Method Oxymask Oxygen Flow Rate 15 Sepsis Recent Fever Within 48 Hours Sepsis New/Unexplained Change in Mental Status Sepsis Action Taken by Nursing Oxygen Flow Rate - Titration Pulse Oximetry Post Tiitration VITAL SIGNS - Vital signs and nursing notes were reviewed. GENERAL - 69-year-old male appearing stated age who is in moderate distress, diffusely diaphoretic. SKIN - Without rashes. HEAD - NC/AT. EYES - PERRL with EOMI bilaterally. Sclera anicteric. Palpebral conjunctiva pink and moist with no injection noted. EARS - No deformities of external structures noted on gross examination bilaterally. No pain elicited with palpation of the tragus bilaterally. External auditory canals without discharge or otorrhea. Tympanic membranes pearly yuen without retraction or bulging. No fluid or purulent material visualized behind the TM. Handle of malleus, umbo, cone of light, pars tensa/flaccid all easily visualized. NOSE - Midline and without cyanosis. No epistaxis or purulent drainage noted. Septum midline without deviation or septal hematoma noted. MOUTH/OROPHARYNX - Without perioral cyanosis. Buccal mucosa pink and moist and without leukoplakia. Tongue midline with equal elevation of palate bilaterally. No tonsillar hypertrophy, erythema, or exudates noted. dentition noted. NECK - Neck with FROM. Supple to palpation. lymphadenopathy noted. No nuchal rigidity. LUNGS - Chest wall symmetric without accessory muscle use, intercostals retractions, or central cyanosis. Normal vesicular breath sounds CTA B/L. No wheezes, rales, or rhonchi appreciated. CARDIAC - RRR with S1/S2. No murmur, rubs, or gallops appreciated. ABDOMEN - Abdominal contour without pulsations or visible masses. BS normoactive all four quadrants. No tenderness, palpable masses, hepatosplenomegaly, or ascites noted. EXTREMITIES - No clubbing or peripheral cyanosis. No pretibial edema present. +3/5 radial, posterior tibial, and dorsalis pedis pulses palpated throughout. +5/5 strength noted in UE/LE bilaterally. NEUROLOGIC - Cranial nerves II through XII grossly intact. Sensory intact to light touch throughout. Patellar reflexes +2/4. PSYCH - Pt obtunded Course Administered Medications Albuterol (Duoneb) 3 ml NEB QIDR [facility] Stop: 02/04/20 06:59 Last Admin: 01/04/20 20:25 Dose: 3 ml Documented by: [id number] Levofloxacin/Dextrose (Levaquin/D5w) 750 mg in 150 mls @ 100 mls/hr IV Q24H [facility] Stop: 01/11/20 16:44 Last Infusion: 01/04/20 18:32 Dose: 0 mls/hr Documented by: [id number] Admin: 01/04/20 17:01 Dose: 100 mls/hr Documented by: [id number] Lactated Ringer's (Lr) 1,000 mls @ 125 mls/hr IV .Q8H OFE Stop: 02/03/20 20:14 Last Admin: 01/04/20 20:51 Dose: 125 mls/hr Documented by: [id number] Levetiracetam 750 mg/ Sodium (Chloride) 107.5 mls @ 440 mls/hr IV BID OFE Stop: 02/03/20 20:59 Last Infusion: 01/04/20 21:46 Dose: 0 mls/hr Documented by: [id number] Admin: 01/04/20 21:21 Dose: 440 mls/hr Documented by: [id number] Valproic Acid 250 mg/ Dextrose 52.5 mls @ 55 mls/hr IV TID OFE Stop: 02/03/20 20:59 Last Admin: 01/04/20 21:47 Dose: 55 mls/hr Documented by: [id number] Insulin Aspart (Novolog Flexpen) 0 units SC Q4 OFE Stop: 02/03/20 20:44 Last Admin: 01/04/20 20:51 Dose: Not Given Documented by: [id number] Cosigned by: [id number] Discontinued Medications Cefepime HCl (Maxipime) 2,000 mg in 20 mls @ 5 mls/min IV NOW STA Stop: 01/04/20 16:48 Last Admin: 01/04/20 16:59 Dose: 5 mls/min Documented by: [id number] Acetaminophen (Ofirmev) 1,000 mg in 100 mls @ 400 mls/hr IV NOW STA Stop: 01/04/20 17:00 Last Infusion: 01/04/20 17:23 Dose: 0 mls/hr Documented by: [id number] Admin: 01/04/20 16:59 Dose: 400 mls/hr Documented by: [id number] Vancomycin HCl 1,500 mg/ (Sodium Chloride) 530 mls @ 200 mls/hr IV NOW STA Stop: 01/04/20 19:33 Last Infusion: 01/04/20 20:31 Dose: 0 mls/hr Documented by: [id number] Admin: 01/04/20 17:24 Dose: 200 mls/hr Documented by: [id number] Sodium Chloride (Nss 1000ml) 1,000 mls @ 999 mls/hr IV .Q1H1M ONE Stop: 01/04/20 18:12 Last Infusion: 01/04/20 18:32 Dose: 0 mls/hr Documented by: [id number] Infusion: 01/04/20 18:03 Dose: 0 mls/hr Documented by: [id number] Admin: 01/04/20 17:17 Dose: 999 mls/hr Documented by: [id number] Sodium Chloride (Nss 1000ml) 1,000 mls @ 999 mls/hr IV .Q1H1M ONE Stop: 01/04/20 18:31 Last Infusion: 01/04/20 19:22 Dose: 0 mls/hr Documented by: [id number] Admin: 01/04/20 18:11 Dose: 999 mls/hr Documented by: [id number] Sodium Chloride (Nss) 250 mls @ 999 mls/hr IV .Q16M ONE Stop: 01/04/20 17:53 Last Infusion: 01/04/20 19:32 Dose: 0 mls/hr Documented by: [id number] Infusion: 01/04/20 19:31 Dose: 0 mls/hr Documented by: [id number] Admin: 01/04/20 19:22 Dose: 999 mls/hr Documented by: [id number] Lactated Ringer's (Lr) 1,000 mls @ 999 mls/hr IV .Q1H1M ONE Stop: 01/04/20 20:41 Last Admin: 01/04/20 21:46 Dose: Not Given Documented by: [id number] Naloxone HCl (Narcan) 0.4 mg IV NOW STA Stop: 01/04/20 20:11 Last Admin: 01/04/20 20:30 Dose: Not Given Documented by: [id number] Naloxone HCl (Narcan) Confirm Administered Dose 0.4 mg .ROUTE .STK-MED ONE Stop: 01/04/20 20:12 Last Admin: 01/04/20 20:15 Dose: 0.4 mg Documented by: [id number] Critical Care Time I have personally spent greater than 90 minutes of critical care time in the direct management of this patient. This includes bedside care, interpretation of diagnostic studies, and testing, discussion with consultants, patient, and family members, and other required patient management activities. This 90 minutes is in excess of all separately billable procedures. Medical Decision Making Differential Diagnosis Sepsis, UTI, pneumonia, metabolic, electrolyte abnormalities, cardiac sources, intracerebral event, toxicologic, neurologic, as well as other pathologies. Medical Records Attestation: I reviewed the patient's medical records. Home Medications Current Medication List: was personally reviewed by me Laboratory Data Attestation: I reviewed the patient's lab results. Result diagrams: 01/04/20 16:51 01/04/20 16:51 Lab Results 01/04/20 01/04/20 01/04/20 Range/Units 16:51 16:51 16:51 WBC 12.78 H (4.8-10.8) K/uL RBC 4.95 (4.7-6.1) M/uL Hgb 15.9 (14.0-18.0) g/dL POC Hgb (14.0-18.0) g/dl Hct 49.1 (42-52) % POC Hct (42-52) % MCV 99.2 (80-100) fL MCH 32.1 (25-34) pg MCHC 32.4 (32-36) g/dL RDW Std Deviation 50.5 H (36.4-46.3) fL RDW Coeff of Kasey 14.2 (11.5-14.5) % Plt Count 199 (130-400) K/uL MPV 11.7 H (7.4-10.4) fL Immature Gran % (Auto) 1.5 % Neut % (Auto) 79.3 % Lymph % (Auto) 11.8 % [place] % (Auto) 7.2 % Eos % (Auto) 0.1 % Baso % (Auto) 0.1 % Neut # (Auto) 10.14 H (1.4-6.5) K/uL Lymph # (Auto) 1.51 (1.2-3.4) K/uL [place] # (Auto) 0.92 H (0.11-0.59) K/uL Eos # (Auto) 0.01 (0-0.5) K/uL Baso # (Auto) 0.01 (0-0.2) K/uL Immature Gran # (Auto) 0.19 H (0.00-0.02) K/uL ESR 32 H (0-14) mm/hr PT 11.2 (9.0-12.0) Seconds INR 1.1 (0.9-1.1) APTT 26.2 (21.0-31.0) Seconds PTT Ratio 0.9 VBG pH (7.36-7.41) VBG pCO2 (38-50) mmHg VBG pO2 mmHg VBG HCO3 mmol/L VBG O2 Saturation % VBG Base Excess mEq/L Barometric Pressure mm/Hg POC Sodium (135-144) mmol/L Sodium (136-145) mmol/L POC Potassium (3.3-5.0) mmol/L Potassium (3.5-5.1) mmol/L POC Chloride (101-112) mmol/L Chloride (98-107) mmol/L Carbon Dioxide (21-32) mmol/L POC Total CO2 (24-31) mmol/L Anion Gap (3-11) POC Anion Gap (16-25) mmol/L POC BUN (7-18) mg/dl BUN (7-18) mg/dl Creatinine (0.6-1.4) mg/dl POC Creatinine (0.6-1.3) mg/dl Est Cr Clr Drug Dosing ml/min Est GFR ( Amer) Est GFR (Non-Af Amer) BUN/Creatinine Ratio (10-20) Glucose (70-99) mg/dl POC Glucose (other) (70-99) mg/dl Lactate (0.4-2.0) mmol/L Calcium (8.5-10.1) mg/dl POC Ioniz Calcium Cooper (1.12-1.32) mmol/l Magnesium (1.8-2.4) mg/dl Ferritin (8-388) ng/ml Total Bilirubin (0.2-1) mg/dl AST (15-37) U/L ALT (12-78) U/L Alkaline Phosphatase (45-117) U/L Lactate Dehydrogenase (87-241) U/L Total Creatine Kinase (39-308) U/L CK-MB (CK-2) (0.5-3.6) ng/ml CK/CKMB % Calc Troponin I (0-0.045) ng/ml C-Reactive Protein (0-0.29) mg/dl Total Protein (6.4-8.2) gm/dl Albumin (3.4-5.0) gm/dl Globulin (2.5-4.0) gm/dl Albumin/Globulin Ratio (0.9-2) Procalcitonin (0-0.5) ng/ml Urine Color Urine Appearance (Clear) Urine pH (4.5-7.5) Ur Specific Scott (1.000-1.030) Urine Protein (Negative) Urine Glucose (UA) (Negative) Urine Ketones (Negative) Urine Blood (Negative) Urine Nitrite (Negative) Urine Bilirubin (Negative) Urine Urobilinogen (Negative) Ur Leukocyte Esterase (Negative) Urine WBC (Auto) (0-5) /hpf Urine RBC (Auto) (0-4) /hpf U Hyaline Cast (Auto) (0-5) /lpf U Epithel Cells (Auto) (0-5) /lpf Urine Bacteria (Auto) (Negative) Urine Yeast Adenovirus (PCR) (NotDetected) B. pertussis DNA (PCR) (NotDetected) B.parapertussis DNA PCR (NotDetected) C. pneumoniae DNA (PCR) (NotDetected) Coronavirus OC43 (PCR) (NotDetected) Coronavirus HKU1 (PCR) (NotDetected) Coronavirus 229E (PCR) (NotDetected) COVID-19 PCR (Negative) Coronavirus NL63 (PCR) (NotDetected) Human Metapneumovir PCR (NotDetected) Influenza Type A (PCR) (NotDetected) Influenza Type B (PCR) (NotDetected) M. pneumoniae (PCR) (NotDetected) Parainfluenza 1 (PCR) (NotDetected) Parainfluenza 2 (PCR) (NotDetected) Parainfluenza 3 (PCR) (NotDetected) Parainfluenza 4 (PCR) (NotDetected) RSV (PCR) (NotDetected) Entero/Rhino (PCR) (NotDetected) SARS-CoV-2 RNA (RT-PCR) 01/04/20 01/04/20 01/04/20 Range/Units 16:51 16:51 16:51 WBC (4.8-10.8) K/uL RBC (4.7-6.1) M/uL Hgb (14.0-18.0) g/dL POC Hgb (14.0-18.0) g/dl Hct (42-52) % POC Hct (42-52) % MCV (80-100) fL MCH (25-34) pg MCHC (32-36) g/dL RDW Std Deviation (36.4-46.3) fL RDW Coeff of Kasey (11.5-14.5) % Plt Count (130-400) K/uL MPV (7.4-10.4) fL Immature Gran % (Auto) % Neut % (Auto) % Lymph % (Auto) % [place] % (Auto) % Eos % (Auto) % Baso % (Auto) % Neut # (Auto) (1.4-6.5) K/uL Lymph # (Auto) (1.2-3.4) K/uL [place] # (Auto) (0.11-0.59) K/uL Eos # (Auto) (0-0.5) K/uL Baso # (Auto) (0-0.2) K/uL Immature Gran # (Auto) (0.00-0.02) K/uL ESR (0-14) mm/hr PT (9.0-12.0) Seconds INR (0.9-1.1) APTT (21.0-31.0) Seconds PTT Ratio VBG pH (7.36-7.41) VBG pCO2 (38-50) mmHg VBG pO2 mmHg VBG HCO3 mmol/L VBG O2 Saturation % VBG Base Excess mEq/L Barometric Pressure mm/Hg POC Sodium (135-144) mmol/L Sodium 154 H (136-145) mmol/L POC Potassium (3.3-5.0) mmol/L Potassium 4.5 (3.5-5.1) mmol/L POC Chloride (101-112) mmol/L Chloride 118 H (98-107) mmol/L Carbon Dioxide 30 (21-32) mmol/L POC Total CO2 (24-31) mmol/L Anion Gap 6.0 (3-11) POC Anion Gap (16-25) mmol/L POC BUN (7-18) mg/dl BUN 58 H (7-18) mg/dl Creatinine 2.11 H (0.6-1.4) mg/dl POC Creatinine (0.6-1.3) mg/dl Est Cr Clr Drug Dosing 30.3 ml/min Est GFR ( Amer) 35.4 Est GFR (Non-Af Amer) 30.6 BUN/Creatinine Ratio 27.6 H (10-20) Glucose 204 H (70-99) mg/dl POC Glucose (other) (70-99) mg/dl Lactate 2.9 H* (0.4-2.0) mmol/L Calcium 10.1 (8.5-10.1) mg/dl POC Ioniz Calcium Cooper (1.12-1.32) mmol/l Magnesium 3.2 H (1.8-2.4) mg/dl Ferritin 504.2 H (8-388) ng/ml Total Bilirubin 0.6 (0.2-1) mg/dl AST 8 L (15-37) U/L ALT 19 (12-78) U/L Alkaline Phosphatase 67 (45-117) U/L Lactate Dehydrogenase (87-241) U/L Total Creatine Kinase 38 L (39-308) U/L CK-MB (CK-2) < 1.0 (0.5-3.6) ng/ml CK/CKMB % Calc TNP Troponin I < 0.015 (0-0.045) ng/ml C-Reactive Protein 44.30 H (0-0.29) mg/dl Total Protein 7.6 (6.4-8.2) gm/dl Albumin 2.8 L (3.4-5.0) gm/dl Globulin 4.8 H (2.5-4.0) gm/dl Albumin/Globulin Ratio 0.6 L (0.9-2) Procalcitonin 1.52 H (0-0.5) ng/ml Urine Color Urine Appearance (Clear) Urine pH (4.5-7.5) Ur Specific Scott (1.000-1.030) Urine Protein (Negative) Urine Glucose (UA) (Negative) Urine Ketones (Negative) Urine Blood (Negative) Urine Nitrite (Negative) Urine Bilirubin (Negative) Urine Urobilinogen (Negative) Ur Leukocyte Esterase (Negative) Urine WBC (Auto) (0-5) /hpf Urine RBC (Auto) (0-4) /hpf U Hyaline Cast (Auto) (0-5) /lpf U Epithel Cells (Auto) (0-5) /lpf Urine Bacteria (Auto) (Negative) Urine Yeast Adenovirus (PCR) (NotDetected) B. pertussis DNA (PCR) (NotDetected) B.parapertussis DNA PCR (NotDetected) C. pneumoniae DNA (PCR) (NotDetected) Coronavirus OC43 (PCR) (NotDetected) Coronavirus HKU1 (PCR) (NotDetected) Coronavirus 229E (PCR) (NotDetected) COVID-19 PCR (Negative) Coronavirus NL63 (PCR) (NotDetected) Human Metapneumovir PCR (NotDetected) Influenza Type A (PCR) (NotDetected) Influenza Type B (PCR) (NotDetected) M. pneumoniae (PCR) (NotDetected) Parainfluenza 1 (PCR) (NotDetected) Parainfluenza 2 (PCR) (NotDetected) Parainfluenza 3 (PCR) (NotDetected) Parainfluenza 4 (PCR) (NotDetected) RSV (PCR) (NotDetected) Entero/Rhino (PCR) (NotDetected) SARS-CoV-2 RNA (RT-PCR) 01/04/20 01/04/20 01/04/20 Range/Units 16:59 17:00 17:00 WBC (4.8-10.8) K/uL RBC (4.7-6.1) M/uL Hgb (14.0-18.0) g/dL POC Hgb (14.0-18.0) g/dl Hct (42-52) % POC Hct (42-52) % MCV (80-100) fL MCH (25-34) pg MCHC (32-36) g/dL RDW Std Deviation (36.4-46.3) fL RDW Coeff of Kasey (11.5-14.5) % Plt Count (130-400) K/uL MPV (7.4-10.4) fL Immature Gran % (Auto) % Neut % (Auto) % Lymph % (Auto) % [place] % (Auto) % Eos % (Auto) % Baso % (Auto) % Neut # (Auto) (1.4-6.5) K/uL Lymph # (Auto) (1.2-3.4) K/uL [place] # (Auto) (0.11-0.59) K/uL Eos # (Auto) (0-0.5) K/uL Baso # (Auto) (0-0.2) K/uL Immature Gran # (Auto) (0.00-0.02) K/uL ESR (0-14) mm/hr PT (9.0-12.0) Seconds INR (0.9-1.1) APTT (21.0-31.0) Seconds PTT Ratio VBG pH (7.36-7.41) VBG pCO2 (38-50) mmHg VBG pO2 mmHg VBG HCO3 mmol/L VBG O2 Saturation % VBG Base Excess mEq/L Barometric Pressure mm/Hg POC Sodium (135-144) mmol/L Sodium (136-145) mmol/L POC Potassium (3.3-5.0) mmol/L Potassium (3.5-5.1) mmol/L POC Chloride (101-112) mmol/L Chloride (98-107) mmol/L Carbon Dioxide (21-32) mmol/L POC Total CO2 (24-31) mmol/L Anion Gap (3-11) POC Anion Gap (16-25) mmol/L POC BUN (7-18) mg/dl BUN (7-18) mg/dl Creatinine (0.6-1.4) mg/dl POC Creatinine (0.6-1.3) mg/dl Est Cr Clr Drug Dosing ml/min Est GFR ( Amer) Est GFR (Non-Af Amer) BUN/Creatinine Ratio (10-20) Glucose (70-99) mg/dl POC Glucose (other) (70-99) mg/dl Lactate (0.4-2.0) mmol/L Calcium (8.5-10.1) mg/dl POC Ioniz Calcium Cooper (1.12-1.32) mmol/l Magnesium (1.8-2.4) mg/dl Ferritin (8-388) ng/ml Total Bilirubin (0.2-1) mg/dl AST (15-37) U/L ALT (12-78) U/L Alkaline Phosphatase (45-117) U/L Lactate Dehydrogenase 304 H (87-241) U/L Total Creatine Kinase (39-308) U/L CK-MB (CK-2) (0.5-3.6) ng/ml CK/CKMB % Calc Troponin I (0-0.045) ng/ml C-Reactive Protein (0-0.29) mg/dl Total Protein (6.4-8.2) gm/dl Albumin (3.4-5.0) gm/dl Globulin (2.5-4.0) gm/dl Albumin/Globulin Ratio (0.9-2) Procalcitonin (0-0.5) ng/ml Urine Color Urine Appearance (Clear) Urine pH (4.5-7.5) Ur Specific Scott (1.000-1.030) Urine Protein (Negative) Urine Glucose (UA) (Negative) Urine Ketones (Negative) Urine Blood (Negative) Urine Nitrite (Negative) Urine Bilirubin (Negative) Urine Urobilinogen (Negative) Ur Leukocyte Esterase (Negative) Urine WBC (Auto) (0-5) /hpf Urine RBC (Auto) (0-4) /hpf U Hyaline Cast (Auto) (0-5) /lpf U Epithel Cells (Auto) (0-5) /lpf Urine Bacteria (Auto) (Negative) Urine Yeast Adenovirus (PCR) Not Detected (NotDetected) B. pertussis DNA (PCR) Not Detected (NotDetected) B.parapertussis DNA PCR Not Detected (NotDetected) C. pneumoniae DNA (PCR) Not Detected (NotDetected) Coronavirus OC43 (PCR) Not Detected (NotDetected) Coronavirus HKU1 (PCR) Not Detected (NotDetected) Coronavirus 229E (PCR) Not Detected (NotDetected) COVID-19 PCR (Negative) Coronavirus NL63 (PCR) Not Detected (NotDetected) Human Metapneumovir PCR Not Detected (NotDetected) Influenza Type A (PCR) Not Detected Cancelled (NotDetected) Influenza Type B (PCR) Not Detected Cancelled (NotDetected) M. pneumoniae (PCR) Not Detected (NotDetected) Parainfluenza 1 (PCR) Not Detected (NotDetected) Parainfluenza 2 (PCR) Not Detected (NotDetected) Parainfluenza 3 (PCR) Not Detected (NotDetected) Parainfluenza 4 (PCR) Not Detected (NotDetected) RSV (PCR) Not Detected (NotDetected) Entero/Rhino (PCR) Not Detected (NotDetected) SARS-CoV-2 RNA (RT-PCR) 01/04/20 01/04/20 01/04/20 Range/Units 17:00 17:02 17:03 WBC (4.8-10.8) K/uL RBC (4.7-6.1) M/uL Hgb (14.0-18.0) g/dL POC Hgb (14.0-18.0) g/dl Hct (42-52) % POC Hct (42-52) % MCV (80-100) fL MCH (25-34) pg MCHC (32-36) g/dL RDW Std Deviation (36.4-46.3) fL RDW Coeff of Kasey (11.5-14.5) % Plt Count (130-400) K/uL MPV (7.4-10.4) fL Immature Gran % (Auto) % Neut % (Auto) % Lymph % (Auto) % [place] % (Auto) % Eos % (Auto) % Baso % (Auto) % Neut # (Auto) (1.4-6.5) K/uL Lymph # (Auto) (1.2-3.4) K/uL [place] # (Auto) (0.11-0.59) K/uL Eos # (Auto) (0-0.5) K/uL Baso # (Auto) (0-0.2) K/uL Immature Gran # (Auto) (0.00-0.02) K/uL ESR (0-14) mm/hr PT (9.0-12.0) Seconds INR (0.9-1.1) APTT (21.0-31.0) Seconds PTT Ratio VBG pH 7.47 H (7.36-7.41) VBG pCO2 43 (38-50) mmHg VBG pO2 42 mmHg VBG HCO3 31 mmol/L VBG O2 Saturation 77.1 % VBG Base Excess 6.1 mEq/L Barometric Pressure 731.4 mm/Hg POC Sodium (135-144) mmol/L Sodium (136-145) mmol/L POC Potassium (3.3-5.0) mmol/L Potassium (3.5-5.1) mmol/L POC Chloride (101-112) mmol/L Chloride (98-107) mmol/L Carbon Dioxide (21-32) mmol/L POC Total CO2 (24-31) mmol/L Anion Gap (3-11) POC Anion Gap (16-25) mmol/L POC BUN (7-18) mg/dl BUN (7-18) mg/dl Creatinine (0.6-1.4) mg/dl POC Creatinine (0.6-1.3) mg/dl Est Cr Clr Drug Dosing ml/min Est GFR ( Amer) Est GFR (Non-Af Amer) BUN/Creatinine Ratio (10-20) Glucose (70-99) mg/dl POC Glucose (other) (70-99) mg/dl Lactate (0.4-2.0) mmol/L Calcium (8.5-10.1) mg/dl POC Ioniz Calcium [place] (1.12-1.32) mmol/l Magnesium (1.8-2.4) mg/dl Ferritin (8-388) ng/ml Total Bilirubin (0.2-1) mg/dl AST (15-37) U/L ALT (12-78) U/L Alkaline Phosphatase (45-117) U/L Lactate Dehydrogenase (87-241) U/L Total Creatine Kinase (39-308) U/L CK-MB (CK-2) (0.5-3.6) ng/ml CK/CKMB % Calc Troponin I (0-0.045) ng/ml C-Reactive Protein (0-0.29) mg/dl Total Protein (6.4-8.2) gm/dl Albumin (3.4-5.0) gm/dl Globulin (2.5-4.0) gm/dl Albumin/Globulin Ratio (0.9-2) Procalcitonin (0-0.5) ng/ml Urine Color [place] Urine Appearance Cloudy A (Clear) Urine pH 5.0 (4.5-7.5) Ur Specific [place] 1.038 H (1.000-1.030) Urine Protein 2+ H (Negative) Urine Glucose (UA) Negative (Negative) Urine Ketones Trace H (Negative) Urine Blood 3+ H (Negative) Urine Nitrite Positive A (Negative) Urine Bilirubin Negative (Negative) Urine Urobilinogen Negative (Negative) Ur Leukocyte Esterase 1+ H (Negative) Urine WBC (Auto) 5-10 H (0-5) /hpf Urine RBC (Auto) >30 H (0-4) /hpf U Hyaline Cast (Auto) 1-5 (0-5) /lpf U Epithel Cells (Auto) >30 H (0-5) /lpf Urine Bacteria (Auto) 2+ H (Negative) Urine Yeast Not Reportable Adenovirus (PCR) (NotDetected) B. pertussis DNA (PCR) (NotDetected) B.parapertussis DNA PCR (NotDetected) C. pneumoniae DNA (PCR) (NotDetected) Coronavirus OC43 (PCR) (NotDetected) Coronavirus HKU1 (PCR) (NotDetected) Coronavirus 229E (PCR) (NotDetected) COVID-19 PCR (Negative) Coronavirus NL63 (PCR) (NotDetected) Human Metapneumovir PCR (NotDetected) Influenza Type A (PCR) (NotDetected) Influenza Type B (PCR) (NotDetected) M. pneumoniae (PCR) (NotDetected) Parainfluenza 1 (PCR) (NotDetected) Parainfluenza 2 (PCR) (NotDetected) Parainfluenza 3 (PCR) (NotDetected) Parainfluenza 4 (PCR) (NotDetected) RSV (PCR) (NotDetected) Entero/Rhino (PCR) (NotDetected) SARS-CoV-2 RNA (RT-PCR) Cancelled 01/04/20 01/04/20 Range/Units 17:20 17:30 WBC (4.8-10.8) K/uL RBC (4.7-6.1) M/uL Hgb (14.0-18.0) g/dL POC Hgb 15.3 (14.0-18.0) g/dl Hct (42-52) % POC Hct 45 (42-52) % MCV (80-100) fL MCH (25-34) pg MCHC (32-36) g/dL RDW Std Deviation (36.4-46.3) fL RDW Coeff of K[place] (11.5-14.5) % Plt Count (130-400) K/uL MPV (7.4-10.4) fL Immature Gran % (Auto) % Neut % (Auto) % Lymph % (Auto) % [place] % (Auto) % Eos % (Auto) % Baso % (Auto) % Neut # (Auto) (1.4-6.5) K/uL Lymph # (Auto) (1.2-3.4) K/uL [place] # (Auto) (0.11-0.59) K/uL Eos # (Auto) (0-0.5) K/uL Baso # (Auto) (0-0.2) K/uL Immature Gran # (Auto) (0.00-0.02) K/uL ESR (0-14) mm/hr PT (9.0-12.0) Seconds INR (0.9-1.1) APTT (21.0-31.0) Seconds PTT Ratio VBG pH (7.36-7.41) VBG pCO2 (38-50) mmHg VBG pO2 mmHg VBG HCO3 mmol/L VBG O2 Saturation % VBG Base Excess mEq/L Barometric Pressure mm/Hg POC Sodium 155 H (135-144) mmol/L Sodium (136-145) mmol/L POC Potassium 4.5 (3.3-5.0) mmol/L Potassium (3.5-5.1) mmol/L POC Chloride 120 H (101-112) mmol/L Chloride (98-107) mmol/L Carbon Dioxide (21-32) mmol/L POC Total CO2 28 (24-31) mmol/L Anion Gap (3-11) POC Anion Gap 12.0 L (16-25) mmol/L POC BUN 54 H (7-18) mg/dl BUN (7-18) mg/dl Creatinine (0.6-1.4) mg/dl POC Creatinine 1.9 H (0.6-1.3) mg/dl Est Cr Clr Drug Dosing ml/min Est GFR ( Amer) Est GFR (Non-Af Amer) BUN/Creatinine Ratio (10-20) Glucose (70-99) mg/dl POC Glucose (other) 205 H (70-99) mg/dl Lactate (0.4-2.0) mmol/L Calcium (8.5-10.1) mg/dl POC Ioniz Calcium [place] 1.11 L (1.12-1.32) mmol/l Magnesium (1.8-2.4) mg/dl Ferritin (8-388) ng/ml Total Bilirubin (0.2-1) mg/dl AST (15-37) U/L ALT (12-78) U/L Alkaline Phosphatase (45-117) U/L Lactate Dehydrogenase (87-241) U/L Total Creatine Kinase (39-308) U/L CK-MB (CK-2) (0.5-3.6) ng/ml CK/CKMB % Calc Troponin I (0-0.045) ng/ml C-Reactive Protein (0-0.29) mg/dl Total Protein (6.4-8.2) gm/dl Albumin (3.4-5.0) gm/dl Globulin (2.5-4.0) gm/dl Albumin/Globulin Ratio (0.9-2) Procalcitonin (0-0.5) ng/ml Urine Color Urine Appearance (Clear) Urine pH (4.5-7.5) Ur Specific Scott (1.000-1.030) Urine Protein (Negative) Urine Glucose (UA) (Negative) Urine Ketones (Negative) Urine Blood (Negative) Urine Nitrite (Negative) Urine Bilirubin (Negative) Urine Urobilinogen (Negative) Ur Leukocyte Esterase (Negative) Urine WBC (Auto) (0-5) /hpf Urine RBC (Auto) (0-4) /hpf U Hyaline Cast (Auto) (0-5) /lpf U Epithel Cells (Auto) (0-5) /lpf Urine Bacteria (Auto) (Negative) Urine Yeast Adenovirus (PCR) (NotDetected) B. pertussis DNA (PCR) (NotDetected) B.parapertussis DNA PCR (NotDetected) C. pneumoniae DNA (PCR) (NotDetected) Coronavirus OC43 (PCR) (NotDetected) Coronavirus HKU1 (PCR) (NotDetected) Coronavirus 229E (PCR) (NotDetected) COVID-19 PCR NEGATIVE (Negative) Coronavirus NL63 (PCR) (NotDetected) Human Metapneumovir PCR (NotDetected) Influenza Type A (PCR) (NotDetected) Influenza Type B (PCR) (NotDetected) M. pneumoniae (PCR) (NotDetected) Parainfluenza 1 (PCR) (NotDetected) Parainfluenza 2 (PCR) (NotDetected) Parainfluenza 3 (PCR) (NotDetected) Parainfluenza 4 (PCR) (NotDetected) RSV (PCR) (NotDetected) Entero/Rhino (PCR) (NotDetected) SARS-CoV-2 RNA (RT-PCR) Imaging Data Radiologist's Impression: [facility] [place], [place] [phone] XRay Report Patient: Chente PLUMMER Date: 01/04/20 MR#: [id number] Acct ID:[id number]: HEARTEDWINA Date: 1950City Zip: [place] [address] Age: 69Location: ED Sex: M Room/Bed: Att Phy:Diagnosis: SOB [facility] [place] [facility]: [facility] Carmelo Blankenship MD Admit Phy: Ordering Phy: Jacob Reyez MD cc: ~ XR chest 1V portable CLINICAL HISTORY: SEPSIS COMPARISON STUDY: 11/26/2018 FINDINGS: The heart is mildly enlarged. There are low lung volumes. There are progressive bibasilar opacities, atelectasis versus pneumonia. There is no overt failure. There are no large pleural effusions.[ IMPRESSION: Low lung volumes with progressive bibasilar opacities. ACT 112: Negative or not required by law. Electronically signed by: Carmelo Blankenship M.D. 01/04/2020 5:28 PM Dictated: 01/04/20 1728 Transcribed: 01/04/20 172 ECG Data Attestation: I personally reviewed and interpreted this ECG as follows: Indication: + altered mental status Rate (beats per minute): 112 Rhythm: + sinus tachycardia ECG Norco: + Left axis deviation ECG ST segments: no ST depression and no ST elevation ECG Findings: + Q waves (Inferior) Comparison ECG Date: from (11/26/2018) Change: no significant change Blood Pressure Blood Pressure Findings: Low blood pressure MDM Narrative Patient was seen and evaluated as above in room C10. Review was performed of nursing notes and vital signs. I did review pertinent previous visits and patient history. After obtaining a thorough history and physical examination the above work up was performed. This is a 69-year-old male who presents the emergency department obtunded h ypotensive and tachycardic. A sepsis alert was immediately initiated and the patient was given 30 mL's per kilogram of fluid. He was given broad-spectrum antibiotics including cefepime Levaquin and vancomycin. Patient appears to have bilateral pneumonia on chest x-ray. His okeefe test is negative. His white blood cell count was found to be elevated at 12,000 his lactate is also elevated. The patient was placed on oxy mask. He is a full code. The patient's pressure did improve after fluid. His creatinine is also bumped. I did discuss the case with the hospitalist service who did agree to admit the patient. An order was placed for continuous cardiac monitoring. The monitor shows a rate of 92 with Normal Sinus rhythm. The patient was evaluated during the global COVID-19 pandemic, and that diagnosis was suspected/considered upon their initial presentation. Their evaluation, treatment and testing was consistent with current guidelines for patients who present with complaints or symptoms that may be related to COVID- 19. Impression & Plan Altered mental status, Acute dehydration, Sepsis Discharge Plan Visit Data *Final* Discharge Date/Time: 01/04/20 19:32 Chief Complaint: Shortness of Breath/Dyspnea Stated Complaint: SOB, UNRESP, ED Provider: Jacob Reyez Discharge Problem: Altered mental status, Acute dehydration, Sepsis Patient Disposition: Admitted As Inpatient Discharge Instructions Interventions: ED Discharge Assessment Last Done: 01/04/20 19:32
[2020-01-04] MEDS ORDERED: NALOXONE HCL 0.4 MG/1 ML VIAL/CARP IV STA (20:10)
[2020-01-04] MEDS ORDERED: NALOXONE HCL 0.4 MG/1 ML VIAL/CARP ONE (20:11)
[2020-01-04] MEDS ORDERED: GLUCOSE 40% GEL 15 GM TUBE PO PRN (20:14)
[2020-01-04] MEDS ORDERED: CARBOHYDRATES FOR HYPOGLYCEMIA PO PRN (20:14)
[2020-01-04] MEDS ORDERED: GLUCAGON FOR INJ 1 MG VIAL SQ PRN (20:14)
[2020-01-04] MEDS ORDERED: GLUCOSE 10 TABS/TUBE PO PRN (20:14)
[2020-01-04] MEDS ORDERED: DEXTROSE 50% 50 ML SYRINGE IV PRN (20:14)
[2020-01-04] MEDS: ALBUT/IPRATROP 3MG/0.5MG NEB 3 ML VIAL NEB SCH (20:25)
[2020-01-04 20:29] LABS: iSTAT Allen Test Pass; iSTAT Arterial Blood Gas HCO3 25 meg/L (19-24); iSTAT Arterial Blood Gas pCO2 39 mmHg (35-46); iSTAT Arterial Blood Gas pH 7.41 (7.35-7.45); iSTAT Arterial Blood Gas pO2 62 mmHg (80-95); iSTAT Carbon Dioxide 26 mmol/L (24-31); iSTAT Site L Radial
[2020-01-04] MEDS: LACTATED RINGER'S 1,000 ML IV SCH (20:51)
[2020-01-04] MEDS: INSULIN ASPART 100 UNITS/ML 3 ML PEN SC SCH (20:51)
[2020-01-04] MEDS ORDERED: HALOPERIDOL 2 MG/1 ML UDP PO PRN (21:12)
[2020-01-04] MEDS ORDERED: HALOPERIDOL LACTATE 5 MG/ML 1 ML VIAL IM PRN (21:12)
[2020-01-04] MEDS: levETIRAcetam 750 MG in 0.9 % SODIUM CHLORIDE 100 ML IV SCH (21:21)
[2020-01-04] MEDS: VALPROATE SOD 250 MG in DEXTROSE 5% 50 ML IV SCH (21:47)
[2020-01-04] MEDS ORDERED: HEPARIN SOD 5,000 UNIT/0.5 ML VIAL SQ SCH (22:00)
[2020-01-05] MEDS: INSULIN ASPART 100 UNITS/ML 3 ML PEN SC SCH ×6 (00:08→19:52)
[2020-01-05] MEDS: CEFEPIME 2,000 MG in SYRINGE 7.5 ML IV SCH ×2 (06:03→16:32)
--- NOTE | 2020-01-05 06:33 | CT Scan Report ---
CT head/brain wo con CLINICAL HISTORY: 69 years-old Male with altered mental status. Acutely altered mental status TECHNIQUE: Multiple axial CT images of the head were obtained without contrast. A dose lowering tech nique was utilized adhering to the principles of ALARA. CT DOSE: 614.27 mGy.cm COMPARISON: Head CT 11/26/2018 FINDINGS: No acute intracranial hemorrhage, midline shift, intracranial mass, hydrocephalus, territorial ischem ia or abnormal extra-axial collection. Age-related involutional changes. Encephalomalacia from remote infarct in the left frontal lobe anterior cerebral artery distribution with ex vacuo ventriculomegal y of the left lateral ventricle. Cerebral vascular calcifications. Patchy white matter hypodensities suggest chronic microvascular ischemic disease. Remote lacunar infarct of the left caudate nucleus. The calvarium is intact. Trace mastoid effusions. Paranasal sinuses are generally clear. Soft tissue s are unremarkable. IMPRESSION: No acute intracranial abnormality. ACT 112: Negative or not required by law. The above report was generated using voice recognition software. It may contain grammatical, syntax o r spelling errors. Electronically signed by: Yong Farrar M.D. 01/05/2020 6:32 AM
[2020-01-05 07:01] LABS: Estimated Average Glucose 143 mg/dl; Hemoglobin A1C 6.6 % (4.5-5.6)
[2020-01-05] MEDS: ALBUT/IPRATROP 3MG/0.5MG NEB 3 ML VIAL NEB SCH ×4 (07:13→20:11)
[2020-01-05 07:22] LABS: Albumin Globulin Ratio 0.5 (0.9-2); Albumin Level 2.1 gm/dl (3.4-5.0); Bilirubin,Total 0.5 mg/dl (0.2-1); Calcium 8.9 mg/dl (8.5-10.1); Creatinine Clr Calc Pharmacy 39.5 ml/min; Est GFR (African American) 47.3; Est GFR (Non-African American) 40.9; Globulin 4.4 gm/dl (2.5-4.0); Potassium 4.7 mmol/L (3.5-5.1); Total Protein 6.5 gm/dl (6.4-8.2)
[2020-01-05] MEDS: LACTATED RINGER'S 1,000 ML IV SCH (07:54)
[2020-01-05 08:12] LABS: Basophils # (auto) 0.01 K/uL (0-0.2); Basophils % (auto) 0.1 %; Eosinophils # (auto) 0.01 K/uL (0-0.5); Eosinophils % (auto) 0.1 %; Hemoglobin 13.4 g/dL (14.0-18.0); Immature Granulocytes # (auto) 0.04 K/uL (0.00-0.02); Immature Granulocytes % (auto) 0.3 %; Lymphocytes # (auto) 1.59 K/uL (1.2-3.4); Lymphocytes % (auto) 13.7 %; Mean Corpuscular Hemoglobin 30.7 pg (25-34); Mean Corpuscular Hgb Conc 29.8 g/dL (32-36); Mean Corpuscular Volume 103.2 fL (80-100); Monocytes # (auto) 0.52 K/uL (0.11-0.59); Monocytes % (auto) 4.5 %; Neutrophils # (auto) 9.44 K/uL (1.4-6.5); Neutrophils % (auto) 81.3 %; Platelet Count 179 K/uL (130-400); Red Blood Count 4.36 M/uL (4.7-6.1); Toxic Vacuolation 1+; White Blood Count 11.61 K/uL (4.8-10.8)
[2020-01-05] MEDS ORDERED: VANCOMYCIN HCL 1,250 MG in SODIUM CHLORIDE 0.9% 250 ML IV SCH (08:30)
[2020-01-05] MEDS: DEXTROSE 5% 1,000 ML IV SCH ×2 (08:37→14:17)
[2020-01-05] MEDS: levETIRAcetam 750 MG in 0.9 % SODIUM CHLORIDE 100 ML IV SCH ×2 (08:39→21:13)
[2020-01-05] MEDS: VALPROATE SOD 250 MG in DEXTROSE 5% 50 ML IV SCH ×3 (08:39→21:13)
--- NOTE | 2020-01-05 08:43 | Electroencephalogram ---
EEG Procedure Note Date of Service January 05, 2020 Start / End Times Start Time: 737 End Time: [address] Fenton History Patient is a 69-year-old with history of acute cephalopathy on a background of psychosis, schizophrenia, and dementia. He has frequent tremors. Home Medication List Home Medications Medication Instructions Recorded Confirmed Type acetaminophen 650 mg PO Q8H PRN MDD 3G 11/26/18 01/04/20 History allopurinol 200 mg PO QAM 11/26/18 01/04/20 History bisacodyl [Dulcolax (bisacodyl)] 10 mg [place] DAILY PRN 11/26/18 01/04/20 History calcium carbonate-vitamin D3 1 tab PO QAM 11/26/18 01/04/20 History [Calcium 500 + D] divalproex 250 mg PO TID 11/26/18 01/04/20 History gabapentin 600 mg PO TID 11/26/18 01/04/20 History haloperidol decanoate [Haldol 25 mg IM MONTHLY 11/26/18 01/04/20 History Decanoate] hydrocodone-acetaminophen 1 tab PO Q6H 11/26/18 01/04/20 History insulin glargine [Lantus Solostar 10 unit SUBCUT QAM 11/26/18 01/04/20 History U-100 Insulin] levetiracetam [Keppra] 750 mg PO BID 11/26/18 01/04/20 History lidocaine 1 applic TOPICAL QAM 11/26/18 01/04/20 History omeprazole 20 mg PO QAM 11/26/18 01/04/20 History quetiapine [Seroquel] 100 mg PO BID 11/26/18 01/04/20 History sennosides-docusate sodium 2 tab PO QAM 11/26/18 01/04/20 History [Senna-S] simvastatin [Zocor] 10 mg PO HS 11/26/18 01/04/20 History amoxicillin-pot clavulanate 1 tab PO BID 01/04/20 01/04/20 History cholecalciferol (vitamin D3) 125 mcg PO DAILY 01/04/20 01/04/20 History fentanyl 1 patch TRANSDERMAL Q72H 01/04/20 01/04/20 History haloperidol lactate 2 mg PO BID 01/04/20 01/04/20 History loperamide 2 mg PO Q8H PRN 01/04/20 01/04/20 History meloxicam 15 mg PO QAM 01/04/20 01/04/20 History venlafaxine 75 mg PO HS 01/04/20 01/04/20 History venlafaxine 150 mg PO QAM 01/04/20 01/04/20 History vitamin B complex-folic acid 1 cap PO QAM 01/04/20 01/04/20 History Inpatient Medication List Albuterol (Duoneb) 3 ml NEB QIDR OFE Stop: 02/04/20 06:59 Last Admin: 01/05/20 07:13 Dose: 3 ml Documented by: [id number] Admin: 01/04/20 20:25 Dose: 3 ml Documented by: [id number] Levofloxacin/Dextrose (Levaquin/D5w) 750 mg in 150 mls @ 100 mls/hr IV Q24H OFE Stop: 01/11/20 16:44 Last Infusion: 01/04/20 18:32 Dose: 0 mls/hr Documented by: [id number] Admin: 01/04/20 17:01 Dose: 100 mls/hr Documented by: [id number] Levetiracetam 750 mg/ Sodium (Chloride) 107.5 mls @ 440 mls/hr IV BID OFE Stop: 02/03/20 20:59 Last Infusion: 01/04/20 21:46 Dose: 0 mls/hr Documented by: [id number] Admin: 01/04/20 21:21 Dose: 440 mls/hr Documented by: [id number] Valproic Acid 250 mg/ Dextrose 52.5 mls @ 55 mls/hr IV TID OFE Stop: 02/03/20 20:59 Last Infusion: 01/04/20 23:05 Dose: 0 mls/hr Documented by: [id number] Admin: 01/04/20 21:47 Dose: 55 mls/hr Documented by: [id number] Cefepime HCl 2,000 mg/ Syringe 20 mls @ 5.5 mls/min IV Q12H OFE; Protocol Stop: 01/12/20 04:59 Last Admin: 01/05/20 06:03 Dose: 5.5 mls/min Documented by: [id number] Insulin Aspart (Novolog Flexpen) 0 units SC Q4 OFE Stop: 02/03/20 20:44 Last Admin: 01/05/20 04:28 Dose: Not Given Documented by: [id number] Cosigned by: [id number] Admin: 01/05/20 00:08 Dose: Not Given Documented by: [id number] Cosigned by: [id number] Admin: 01/04/20 20:51 Dose: Not Given Documented by: [id number] Cosigned by: [id number] Discontinued Medications Cefepime HCl (Maxipime) 2,000 mg in 20 mls @ 5 mls/min IV NOW STA Stop: 01/04/20 16:48 Last Admin: 01/04/20 16:59 Dose: 5 mls/min Documented by: [id number] Acetaminophen (Ofirmev) 1,000 mg in 100 mls @ 400 mls/hr IV NOW STA Stop: 01/04/20 17:00 Last Infusion: 01/04/20 17:23 Dose: 0 mls/hr Documented by: [id number] Admin: 01/04/20 16:59 Dose: 400 mls/hr Documented by: [id number] Vancomycin HCl 1,500 mg/ (Sodium Chloride) 530 mls @ 200 mls/hr IV NOW STA Stop: 01/04/20 19:33 Last Infusion: 01/04/20 20:31 Dose: 0 mls/hr Documented by: [id number] Admin: 01/04/20 17:24 Dose: 200 mls/hr Documented by: [id number] Sodium Chloride (Nss 1000ml) 1,000 mls @ 999 mls/hr IV .Q1H1M ONE Stop: 01/04/20 18:12 Last Infusion: 01/04/20 18:32 Dose: 0 mls/hr Documented by: [id number] Infusion: 01/04/20 18:03 Dose: 0 mls/hr Documented by: [id number] Admin: 01/04/20 17:17 Dose: 999 mls/hr Documented by: [id number] Sodium Chloride (Nss 1000ml) 1,000 mls @ 999 mls/hr IV .Q1H1M ONE Stop: 01/04/20 18:31 Last Infusion: 01/04/20 19:22 Dose: 0 mls/hr Documented by: [id number] Admin: 01/04/20 18:11 Dose: 999 mls/hr Documented by: [id number] Sodium Chloride (Nss) 250 mls @ 999 mls/hr IV .Q16M ONE Stop: 01/04/20 17:53 Last Infusion: 01/04/20 19:32 Dose: 0 mls/hr Documented by: [id number] Infusion: 01/04/20 19:31 Dose: 0 mls/hr Documented by: [id number] Admin: 01/04/20 19:22 Dose: 999 mls/hr Documented by: [id number] Lactated Ringer's (Lr) 1,000 mls @ 999 mls/hr IV .Q1H1M ONE Stop: 01/04/20 20:41 Last Admin: 01/04/20 21:46 Dose: Not Given Documented by: [id number] Lactated Ringer's (Lr) 1,000 mls @ 125 mls/hr IV .Q8H OFE Stop: 02/03/20 20:14 Last Infusion: 01/05/20 07:55 Dose: 0 mls/hr Documented by: [id number] Admin: 01/05/20 07:54 Dose: Not Given Documented by: [id number] Admin: 01/04/20 20:51 Dose: 125 mls/hr Documented by: [id number] Lactated Ringer's (Lr) 1,000 mls @ 999 mls/hr IV .Q1H1M ONE Stop: 01/04/20 23:37 Last Infusion: 01/05/20 00:33 Dose: 0 mls/hr Documented by: [id number] Admin: 01/04/20 23:16 Dose: 999 mls/hr Documented by: [id number] Naloxone HCl (Narcan) 0.4 mg IV NOW STA Stop: 01/04/20 20:11 Last Admin: 01/04/20 20:30 Dose: Not Given Documented by: [id number] Naloxone HCl (Narcan) Confirm Administered Dose 0.4 mg .ROUTE .STK-MED ONE Stop: 01/04/20 20:12 Last Admin: 01/04/20 20:15 Dose: 0.4 mg Documented by: [id number] Description This is a 21 electrode EEG with a single channel dedicated to limited EKG. The electrodes were placed in accordance with the International 10-20 system. Interpretation The predominant background activity consists of an irregular 7.5 Hz activity, of up to 50 mV in amplitude,seen symmetrically distributed over the posterior head regions bilaterally. This activity has some attenuation eye opening alerting procedures. This 7 hertz activity of medium amplitude was seen diffusely in all head regions. Photic stimulation was performed and elicited no change in the background activity and no abnormal responses were seen. Hyperventilation was not performed. A considerable amount of electrode artifact activity was seen throughout the recording requiring the body technician/painter to reapply electrodes on multiple occasions. This was secondary to head movement (tremor) in addition to wearing a BiPAP mask and very sweaty/oily skin (which may for poor electrode contact). There was some other muscle and movement artifact activity at times. Throughout this recording, no focal abnormalities or potentially epileptogenic discharges were seen. In summary, this EEG was mildly abnormal showing very mild generalized slow activity of a nonspecific nature. No focal abnormalities or potentially epileptogenic discharges were seen. Clinical Correlation This EEG showed no potentially epileptogenic activity despite his head tremor. The very mild generalized slowing represents a very mild encephalopathy, and could be due to a wide variety of causes. Clinical correlation is required [facility] EEG Procedure Codes Indication for Procedure (1) Seizure disorder: (2) Schizoaffective disorder, chronic condition: (3) Acute encephalopathy: Neurology Neurology: [id number] EEG include record awake & drowsy
[2020-01-05] MEDS: FAMOTIDINE 20 MG in SYRINGE 3 ML IV SCH (09:26)
--- NOTE | 2020-01-05 10:00 | Hospitalist Progress Note ---
Date of Service January 05, 2020 Assessment & Plan (1) Sepsis associated hypotension: Source urine vs. PNA as below Hypotension responded to IV fluids Follow up blood and urine cultures Continue broad spectrum antibiotics with vancomycin, Cefepime and Levaquin (noted previous e. coli resistant to this but will cover for aspiration PNA) (2) Acute respiratory failure with hypoxia: Aim O2 sats > 94%. Switch to oxymask if able to maintain O2 sats with this. Given continued tachycardia despite IV fluid replacement will consider CT for PE if hypoxia not improving and Cr improving. (3) Pneumonia: Elevated procalcitonin and bilateral opacities on chest x-ray Continue broad-spectrum antibiotics as above. Aspiration vs. Health-care acquired (in long-term setting). Repeat CXR (4) Urinary tract infection: Follow-up urine culture. Broad-spectrum antibiotics as above. Will continue menjivar catheter at present due need to measure UO with sepsis. (5) Acute kidney injury: Suspected prerenal due to acute infection, dehydration (poor oral intake) and meloxicam use. Holding meloxicam. Continue IV fluid replacement as below. Serial BMP as below for hypernatremia. (6) Hypernatremia: Increased overnight due to NSS given as boluses in ER and to some extent LR maintenance. Unlikely DI given no polyuria noted. Water deficit 2.7L Switch fluids to D5W 150 ml/hr Repeat BMP serially throughout the day (7) Altered mental state: CT head negative for acute intracranial abnormality Appears more awake today off opiates and anti-psychotics. Does not appear to be in imminent danger to himself or others therefore will keep off Seroquel pending psychiatry evaluation. Speech eval to assess safety to eat/drink and take medications EEG unremarkable. Will consult neurology to clear patient from seizure/neurological perspective. KUB to assess for constipation/fecal impaction given chronic opiate use with reduced BS Will likely need to go back on anti-psychotics and opiates but will start at lower dose and be guided by psychiatry evaluation as above (8) Schizoaffective disorder, chronic condition: Appears more alert today. Will defer re-introduction of anti-psychotics to psychiatry as no acute need identified at present. Taking both Seroquel 100 mg twice daily (although notably on Seroquel 150mg TID in 2014) and haloperidol 2mg PO BID and 25 mg IM monthly. Consult psychiatry pending (9) Psychosis: No current significant agitation. Unable to determine delusion or hallucinations given dementia and current cognitive state. Haloperidol 2 mg p.o. every 4 hourly as needed or if unable to take p.o. 5 mg IM every 4 hourly as needed (10) Dementia: Noted history of stroke with old left cerebral infarct. Although Alzheimer's noted on prior problem list I suspect his prior stroke and medication are likely contributory. (11) Coronary artery disease: Unclear history of this. No prior stents or CABG Not on chronic antiplatelets ?due to history of gastrointestinal hemorrhage noted (12) Diabetes: HbA1C 6.6 Continue to hold out patient Lantus dosing while NPO Continue Novolog correction factor for now. (13) Hyperlipidemia: Hold simvastatin while NPO (14) GERD (gastroesophageal reflux disease): Switch omeprazole PO 20mg QAM to famotidine 20mg IV daily while NPO (15) Chronic prescription opiate use: Fentanyl patch removed on admission On chronic opiates for right foot and right hand pain. Also taking Meloxicam 15mg QAM and [place] Q6H OFE as per prior documentation Possible overdose causing lethargy on admission in setting of CORY (16) Peripheral vascular disease: Noted history of this. Not on antiplatelets are noted above. Holding s imvastatin while NPO and lethargic. (17) Chronic gout: Will hold allopurinol while unable to take PO meds Repeat uric acid level in AM (18) Seizure disorder: Valproic acid and Keppra levels ordered (although notably these have previously been normal or low). Continue IV valproic acid and Keppra pending neurology review. EEG - non-seizure activity noted despite head tremor during EEG. Very mild generalized slowing represents a very mild encephalopathy. 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 Suspect from prior stroke in setting of chronic anti-psychotic use. Consult neurology - discussed with Dr Landa and recommend patient is seen tomorrow after another day of medical optimization and psychiatry review of his outpatient medication regimen. (21) Depression: Continue venlafaxine once patient able to take PO meds (22) DVT prophylaxis: Heparin 5000 units SQ Q8H Admission and Anticipated Discharge Date Admission Date: January 04, 2020 Subjective Patient appears much more alert today but not following commands. Staring at me and can keep contact as I move around the room but will not follow my finger with his eyes. No purposeful movements with his limbs but right arm is intermittently shaking with increased rigidity compared to left side. Does not make any response to any questions. Discussed with provider (Dr Price) who previously has looked after him and reports chronic opiate use due to right foot pain that would cause him significant distress when opiates have previously tried to be weaned. Review of Systems Review of Systems: Unobtainable due to cognitive status Physical Exam Constitutional: + frail appearing and + disheveled; + not well developed, + not well nourished and no acute distress Eyes: + anicteric sclerae and PERRL; + EOM not intact (unable to assess) and normal pupil size ENMT: Mouth: + dry oral mucous membranes (currently on BiPAP) Neck: trachea midline Respiratory: normal respiratory effort; no respiratory distress, no labored breathing and does not use accessory muscles Auscultation: + diminished lung sounds (bilateral, especially at bases); no crackles, no rales, no rhonchi and no wheezes Cardiovascular: Rate/Rhythm: regular rhythm and + tachycardic Heart Sounds: + murmur (systolic loudest holosystolic LLSB) Vessels: no JVD Extremities: + abnormal capillary refill (4-5s in peripheries), no calf tenderness and no pedal edema Gastrointestinal (Abdomen): Inspection/Auscultation: abdomen normal to inspection and normal bowel sounds Percussion/Palpation: abdomen soft; abdomen nontender, no guarding and abdomen not rigid Musculoskeletal: Generalized muscle wasting b/l with significant hallux valgus of right foot. Skin: no rashes, warm and dry Neurologic: awake (opens eyes easily to voice) Psychiatric: Orientation: alert; + not oriented x 3 Motor Behavior: + psychomotor retardation Speech: + mute Genitourinary: no CVA tenderness Results & Data Results & Data ([facility]) Vital Signs (Past 12 Hours) Vital Signs Temp Pulse Pulse Pulse Resp BP Pulse Ox 01/05/20 09:16 37.0 C 103 H 22 162/84 H 97 01/05/20 07:17 106 H 33 H 96 01/05/20 07:14 106 H 33 H 96 01/05/20 02:58 97 H 22 94 01/05/20 02:40 37.3 C 96 H 24 121/85 96 01/05/20 00:58 37 C 110 H 24 138/92 95 01/05/20 00:50 37 C 111 H 28 H 138/92 01/05/20 00:00 01/04/20 23:30 36.7 C 109 H 28 H 144/92 H 96 01/04/20 22:33 105 H 34 H 99 Pulse Ox 01/05/20 09:16 01/05/20 07:17 01/05/20 07:14 01/05/20 02:58 01/05/20 02:40 01/05/20 00:58 01/05/20 00:50 01/05/20 00:00 98 01/04/20 23:30 01/04/20 22:33 PG Care Time/CCT Total # of Minutes Spent Total Time Spent with Patient: Total time spent is greater than 50% in coordination of care (as documented) at patient's floor/unit and/or counseling patient: Coding Level of Care Code 50969 Subseq Hosp Care Lvl 3 Diagnoses Sepsis associated hypotension A41.9; I95.9 Acute respiratory failure with hypoxia J96.01 Pneumonia J18.9 Urinary tract infection N39.0 Acute kidney injury N17.9 Hypernatremia E87.0 Altered mental state R41.82 Schizoaffective disorder, chronic condition F25.8 Psychosis F29 Dementia F03.90 Coronary artery disease I25.10 Diabetes E11.9 Hyperlipidemia E78.5 GERD (gastroesophageal reflux disease) K21.9 Chronic prescription opiate use Z79.891 Peripheral vascular disease I73.9 Chronic gout [id number] Seizure disorder G40.909 Muscle weakness M62.81 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
--- NOTE | 2020-01-05 10:43 | XRay Report ---
XR chest 1V portable CLINICAL HISTORY: Hypoxia COMPARISON STUDY: 01/04/2020 FINDINGS: The cardiac and mediastinal contours remain stable. There is aortic tortuosity/ectasia. The re are persistent bilateral pulmonary airspace opacities.[There are no significant pleural effusions. IMPRESSION: Persistent bilateral pulmonary airspace opacities. ACT 112: Negative or not required by law. Electronically signed by: Carmelo Blankenship M.D. 01/05/2020 10:42 AM
--- NOTE | 2020-01-05 10:47 | XRay Report ---
XR KUB/Abdomen 1 view CLINICAL HISTORY: ?fecal impaction, constipation COMPARISON STUDY: No previous studies for comparison. FINDINGS: There is no pathologic bowel dilatation. There is no evidence of fecal impaction. There is evidence for aortoiliac stent grafting. There are no calcifications suspicious for renal calculi. IMPRESSION: 1. No evidence of fecal impaction 2. No evidence of pathologic bowel dilatation ACT 112: Negative or not required by law. Electronically signed by: Carmelo Blankenship M.D. 01/05/2020 10:45 AM
--- NOTE | 2020-01-05 11:45 | Neurology Consultation ---
Date of Consultation January 05, 2020 Assessment & Plan (1) Acute encephalopathy: (2) Dementia: (3) Extrapyramidal and movement disorder: (4) Seizure disorder: (5) Schizoaffective disorder, chronic condition: (6) Hypernatremia: Patient has a longstanding history of schizoaffective disorder on multiple neuroleptic medications. In addition he has a history of significant dementia. He has been bed-bound and has muscle atrophy and contractures of his right hand. He has frequent bouts of agitation and confusion. He has some cogwheel rigidity and resting tremor of the right greater than left upper extremity. This is likely extrapyramidal side effects from his neuroleptic medication use. He does have a masklike face/stare also. He has chronic hypernatremia and history of a seizure disorder which I cannot get any details regarding. Depakote level was normal at 61, gabapentin and Keppra will help prevent seizures as well. His EEG was unremarkable for focal or seizure activity. Recent obtundation/encephalopathy could also be due to narcotic usage. He has renal impairment and narcotics can build up. This would cause hypotension. However, he seems septic and has tachycardia, hypotension, diaphoresis, and hypoxia. He is on 2 antibiotics. He has received naloxone and is much more alert today than he was on admission. Depakote will increase tremor also. Recommendations: 1. Obviously, from a neurologic standpoint, I would prefer less neuroleptics so his risk of extra pyramidal disease is less. However, and her stand that he needs significant treatment for his schizoaffective disorder and agitation. I will defer this to Psychiatry. 2. We could consider medication for his tremor and extra pyramidal side effects but I will hold off on this for now until he is overall condition is more stable. 3. Treating sepsis currently with antibiotics. 4. Discontinue narcotics. 5. Keppra level is pending. Keppra can make patient has irritable/agitated and I am not certain this is a necessary medication particularly for seizures. If cleared with Psychiatry I would taper this off as well. 6. Check TSH and B12. Overall, I spent a total of 60 minutes with this case including review of records, direct evaluation the patient at bedside, and discussion of the case with the RN at bedside, and with Dr. Fenton including differential diagnosis and treatment options. History of Present Illness Reason for Consultation: Patient is a 69-year-old, who I was asked to see at the request of Dr. Fenton, for neurologic consultation regarding acute altered mental status. Requesting Physician: Dr. Fenton Attending Physician: Vinny Fenton MD History of Present Illness This patient has a chronic history of schizoaffective disorder. I can find notes as far back as 2014 where he is being treated for this condition, agitated and episodes of altered mental status. Back in 2014 he was Haldol as needed and Seroquel 150 milligrams 3 times a day. As far back as 2016 he has had a diagnosis of significant dementia as well. There is a history of seizure disorder and currently his medications include Depakote 250 milligrams 3 times a day, gabapentin 600 milligrams 3 times a day, Keppra 750 milligrams twice a day, Seroquel 100 milligrams twice daily, venlafaxine 75 milligrams at night and 150 milligrams in the morning, Haldol 25 milligrams IM once per month with 2 milligrams twice a day orally. He has been on a fentanyl patch He has lived at [facility] for many years. Apparently recently he has not been having much in the way of oral liquid intake and frequently becomes agitated yelling out. He has had significant hypernatremia which was noticed in 2016 as well. At 1100 the patient was found lethargic, pale, and clammy with a heart rate of 113 at the intermediate. At 1400 he was more lethargic and had a decreased oxygen level. He arrived at our emergency room [id number] with a temperature of 36.4, heart rate of 115, respiratory rate of 30, blood pressure 92/77, and O2 saturation 88 percent. He was described as obtunded clinically but did withdraw to deep pain. He was diaphoretic. CBC showed a white count of 12. Sed rate was 32. Sodium was 159 and BUN and creatinine were elevated at 58 and 2.11. CRP was elevated at 44 and procalcitonin was elevated. Lactate was 2.9. Magnesium was 3.2. He was Covid- 19 negative and a total CK was 38. Depakote level was 61 and chest x-ray showed bibasilar opacities. CT scan of the head was unremarkable. This morning, and EEG was mildly slow in general. He was having tremors of his right upper extremity and head which were persistent throughout the recording. There was no potentially epileptogenic activity or focal abnormalities throughout the entire EEG. This morning sodium was 160, BUN 55, creatinine 1.66, glucose 163. Hemoglobin A1c was 6.6 and CBC showed a white count of 11.6 and MCV of 103. Blood pressure this morning was 162/84 with pulse of 103. The patient himself does not use words and does not follow commands. No history is obtainable from the patient. Allergies Allergy/AdvReac Type Severity Reaction Status Date / Time No Known Allergies Allergy Unverified 11/26/18 13:11 Home Medications Home Medications Medication Instructions Recorded Confirmed Type acetaminophen 650 mg PO Q8H PRN MDD 3G 11/26/18 01/04/20 History allopurinol 200 mg PO QAM 11/26/18 01/04/20 History bisacodyl [Dulcolax (bisacodyl)] 10 mg PA DAILY PRN 11/26/18 01/04/20 History calcium carbonate-vitamin D3 1 tab PO QAM 11/26/18 01/04/20 History [Calcium 500 + D] divalproex 250 mg PO TID 11/26/18 01/04/20 History gabapentin 600 mg PO TID 11/26/18 01/04/20 History haloperidol decanoate [Haldol 25 mg IM MONTHLY 11/26/18 01/04/20 History Decanoate] hydrocodone-acetaminophen 1 tab PO Q6H 11/26/18 01/04/20 History insulin glargine [Lantus Solostar 10 unit SUBCUT QA 11/26/18 01/04/20 History U-100 Insulin] levetiracetam [Keppra] 750 mg PO BID 11/26/18 01/04/20 History lidocaine 1 applic TOPICAL QAM 11/26/18 01/04/20 History omeprazole 20 mg PO QAM 11/26/18 01/04/20 History quetiapine [Seroquel] 100 mg PO BID 11/26/18 01/04/20 History sennosides-docusate sodium 2 tab PO QAM 11/26/18 01/04/20 History [Senna-S] simvastatin [Zocor] 10 mg PO HS 11/26/18 01/04/20 History amoxicillin-pot clavulanate 1 tab PO BID 01/04/20 01/04/20 History cholecalciferol (vitamin D3) 125 mcg PO DAILY 01/04/20 01/04/20 History fentanyl 1 patch TRANSDERMAL Q72H 01/04/20 01/04/20 History haloperidol lactate 2 mg PO BID 01/04/20 01/04/20 History loperamide 2 mg PO Q8H PRN 01/04/20 01/04/20 History meloxicam 15 mg PO QAM 01/04/20 01/04/20 History venlafaxine 75 mg PO HS 01/04/20 01/04/20 History venlafaxine 150 mg PO QAM 01/04/20 01/04/20 History vitamin B complex-folic acid 1 cap PO QAM 01/04/20 01/04/20 History Patient History Medical History Alzheimer disease Chronic gout Chronic prescription opiate use Dementia (Chronic) Diabetes (Chronic) Gastrointestinal hemorrhage GERD (gastroesophageal reflux disease) (Chronic) Hypertension (Acute) Muscle weakness Peripheral vascular disease Schizoaffective disorder, chronic condition (Chronic) Seizure disorder Stroke (Resolved) Urinary tract infection Social History Communication Ability: Unable Current Living Situation: [facility] Feels Safe at Home: Yes Smoking Status: Unknown if ever smoked Review of Systems Review of Systems: Unobtainable due to mental health condition and Unobtainable due to cognitive status Exam (Neuro) Physical Exam: Neurologic examination is very limited as the patient cannot follow commands. He is awake and alert and he will track me with his eyes some. He will not follow commands and he will not speak or use words. He stares at me. His eyes stay open the whole time and pupils are 3 millimeters bilaterally reactive to light. Discs are difficult to visualize but seem sharp. There is cataract formation bilaterally. Extraocular eye muscles seem intact and there is no facial droop. He can resist eye opening symmetrically bilaterally and there does not seem to be any facial weakness or asymmetry. Neck is supple. Skin is diaphoretic and orally. He has some resting tremor of the right hand but no significant head tremor or other abnormal involuntary movement currently. There is decreased tone in the legs and increased tone in the arms right greater than left. This is a cogwheel rigidity. He does not move his legs and strength cannot be assessed as he puts up no resistance. He does have some resistance in the arms and can hold his left arm up in the air for a few seconds on his own (not the right). The right hand has some contractures of the fingers. Musculature is wasted/atrophic in all 4 limbs. He withdraws to pain in all 4 limbs. Reflexes are 1/4 in the arms and 0/4 in the legs. Toe seen down to stimulation bilaterally. Results & Data ([facility]) Vital Signs (Past 12 Hours) Vital Signs Temp Pulse Pulse Pulse Resp BP Pulse Ox 01/05/20 11:09 90 26 H 95 01/05/20 11:07 90 26 H 95 01/05/20 09:16 37.0 C 103 H 22 162/84 H 97 01/05/20 07:17 106 H 33 H 96 01/05/20 07:14 106 H 33 H 96 01/05/20 02:58 97 H 22 94 01/05/20 02:40 37.3 C 96 H 24 121/85 96 01/05/20 00:58 37 C 110 H 24 138/92 95 01/05/20 00:50 37 C 111 H 28 H 138/92 01/05/20 00:00 01/04/20 23:30 36.7 C 109 H 28 H 144/92 H 96 Pulse Ox 01/05/20 11:09 01/05/20 11:07 01/05/20 09:16 01/05/20 07:17 01/05/20 07:14 01/05/20 02:58 01/05/20 02:40 01/05/20 00:58 01/05/20 00:50 01/05/20 00:00 98 01/04/20 23:30 PG Care Time/CCT Total # of Minutes Spent Total Time Spent with Patient: Total time spent is greater than 50% in coordination of care (as documented) at patient's floor/unit and/or counseling patient: Coding Level of Care Code 96165 Initial Inpt Care Lvl 3 Diagnoses Acute encephalopathy G93.40 Dementia F03.90 Extrapyramidal and movement disorder G25.9 Seizure disorder G40.909 Schizoaffective disorder, chronic condition F25.8 Hypernatremia E87.0 Time Spent (min) 60
[2020-01-05] MEDS ORDERED: fentaNYL citrate 100 MCG/2 ML VIAL IV PRN (12:03)
[2020-01-05] MEDS ORDERED: PROPOFOL BOLUS FROM BAG IV PRN (12:03)
[2020-01-05] MEDS ORDERED: STAT IV Infusion **Titration per Protocol STA ×2 (12:03→16:04)
[2020-01-05] MEDS ORDERED: PROPOFOL IV EMULSION 10 MG/ML 100 ML VIAL IV ONE (12:19)
--- NOTE | 2020-01-05 12:19 | Critical Care Consultation ---
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 Dementia: Alzheimer's Chronic narcotic use Acute encephalopathy: Mixed Resp: Acute hypoxic respiratory failure -Intubation mechanical ventilation: Day 1 -Bronchoscopy CV: Coronary artery disease Peripheral vascular disease -As evidenced by bypass grafts on KUB Fluids/Renal: Acute kidney injury: Improving Hypernatremia: 160 down to 157 Hyperchloremic metabolic acidosis -Free water deficit: 4.3 L -Low urine sodium, urine osmolality pending, suspect hypovolemic hypernatremia with renal losses -Free water administration via NG tube and half NS -Peptamen at 20 mL's with 250 mL free water flush every 4 hours -Half NS with 20 M EQ's KCl at 80 mL's per hour -Every 6 hours BMP Hypermagnesemia Lactic acidosis -Anticipate improvement with volume repletion and thiamine -500 mg thiamine q. 8 hours x 3 doses ID: Gram-negative bacilli bacteremia Gram-negative bacilli urinary tract infection -E. coli isolated from urine in November 26, 2018, April 28, 2019: Nia quinolone resistant, May 21, 2019: Nia quinolone resistant as well as July 05, 2019: Fluoroquinolone resistant Bio fire respiratory panel: Carbone negative COVID PCR negative Legionella antigen pending -Discontinue Levaquin, continue cefepime and vancomycin -Not inclined to continue doxycycline as the mycoplasma is negative and I think atypical infection is unlikely GI/Nutrition: Trickle Peptamen -Enteral access for free water administration Heme: Anemia: Megaloblastic DVT prophylaxis: Heparin 5000 twice daily Endocrine: ICU hyperglycemia protocol Hyperglycemia: Removing dextrose containing solutions Vascular access: Peripheral IVs Code Status: Full Disposition: ICU (2) Extrapyramidal and movement disorder: (3) Chronic prescription opiate use: (4) Peripheral vascular disease: (5) Seizure disorder: (6) Urinary tract infection: (7) Acute kidney injury: (8) Pneumonia: (9) Sepsis associated hypotension: (10) Hypernatremia: (11) Schizophrenia: (12) Acute encephalopathy: History of Present Illness Reason for Consultation: CODE BLUE: Acute hypoxic respiratory failure Requesting Physician: Vinny Fenton MD Attending Physician: Vinny Fenton MD History of Present Illness History is obtained from the hospitalist Dr. Fenton: Patient was admitted through the emergency room after he was transferred from [facility] due to hypoxia and diaphoresis. He was found to have presumptive sepsis of a urine source and was started on broad-spectrum antibiotics. He had acute hypoxic respiratory failure requiring supplemental oxygen, bilateral opacities on chest x-ray concerning for pneumonia, hypotension which responded to fluids in the emergency department, acute kidney injury with hypernatremia. At baseline he has schizoaffective disorder and dementia, probable diagnosis of coronary artery disease, diabetes, hyperlipidemia and chronic opiate use. Per documentation chronic opiates may be used to be treating hallux valgus, he does have disfigured hands consistent with chronic gout. There is a diagnosis of seizure disorder and patient underwent an EEG this morning. EEG obtained was reported no potentially elliptical genic activity despite head tremor. Nursing confirmed the head tremor during my evaluation was the same as what was present during the EEG. Review of the neurology consultation he is at risk for extraparametal disease which could certainly explain his rhythmic myoclonic jerks. Keppra could be compounding mental status. Allergies Allergy/AdvReac Type Severity Reaction Status Date / Time No Known Allergies Allergy Unverified 11/26/18 13:11 Home Medications Home Medications Medication Instructions Recorded Confirmed Type acetaminophen 650 mg PO Q8H PRN MDD 3G 11/26/18 01/04/20 History allopurinol 200 mg PO QAM 11/26/18 01/04/20 History bisacodyl [Dulcolax (bisacodyl)] 10 mg ND DAILY PRN 11/26/18 01/04/20 History calcium carbonate-vitamin D3 1 tab PO QAM 11/26/18 01/04/20 History [Calcium 500 + D] divalproex 250 mg PO TID 11/26/18 01/04/20 History gabapentin 600 mg PO TID 11/26/18 01/04/20 History haloperidol decanoate [Haldol 25 mg IM MONTHLY 11/26/18 01/04/20 History Decanoate] hydrocodone-acetaminophen 1 tab PO Q6H 11/26/18 01/04/20 History insulin glargine [Lantus Solostar 10 unit SUBCUT QA 11/26/18 01/04/20 History U-100 Insulin] levetiracetam [Keppra] 750 mg PO BID 11/26/18 01/04/20 History lidocaine 1 applic TOPICAL QAM 11/26/18 01/04/20 History omeprazole 20 mg PO QAM 11/26/18 01/04/20 History quetiapine [Seroquel] 100 mg PO BID 11/26/18 01/04/20 History sennosides-docusate sodium 2 tab PO QAM 11/26/18 01/04/20 History [Senna-S] simvastatin [Zocor] 10 mg PO HS 11/26/18 01/04/20 History amoxicillin-pot clavulanate 1 tab PO BID 01/04/20 01/04/20 History cholecalciferol (vitamin D3) 125 mcg PO DAILY 01/04/20 01/04/20 History fentanyl 1 patch TRANSDERMAL Q72H 01/04/20 01/04/20 History haloperidol lactate 2 mg PO BID 01/04/20 01/04/20 History loperamide 2 mg PO Q8H PRN 01/04/20 01/04/20 History meloxicam 15 mg PO QAM 01/04/20 01/04/20 History venlafaxine 75 mg PO HS 01/04/20 01/04/20 History venlafaxine 150 mg PO QAM 01/04/20 01/04/20 History vitamin B complex-folic acid 1 cap PO QAM 01/04/20 01/04/20 History Patient History Medical History Alzheimer disease Chronic gout Chronic prescription opiate use Dementia (Chronic) Diabetes (Chronic) Gastrointestinal hemorrhage GERD (gastroesophageal reflux disease) (Chronic) Hypertension (Acute) Muscle weakness Peripheral vascular disease Schizoaffective disorder, chronic condition (Chronic) Seizure disorder Stroke (Resolved) Urinary tract infection Social History Communication Ability: Unable Current Living Situation: [facility] Feels Safe at Home: Yes Smoking Status: Unknown if ever smoked Review of Systems Review of Systems: Unobtainable due to cognitive status Physical Exam Physical Exam: General: Alert. Rhythmic head shaking/myoclonic jerk tremor of right upper extremity Neuro: Glascow Coma Scale: Eyes: 4, Verbal 1, Motor 4, Total 9 Skin: Warm, diaphoretic, Head: Atraumatic Ears, nose, mouth and throat: Edentulous Cardiovascular: Normal peripheral perfusion, tachycardia Respiratory: Tachypnea and coarse breath sounds bilaterally Gastrointestinal: Non distended Musculoskeletal: Pill-rolling tremor with what appears to be contractures of the hand and joint destruction consistent of chronic gout Results & Data Results & Data ([facility]) Vital Signs (Past 12 Hours) Vital Signs Temp Pulse Pulse Pulse Resp BP Pulse Ox 01/05/20 11:09 90 26 H 95 01/05/20 11:07 90 26 H 95 01/05/20 09:16 37.0 C 103 H 22 162/84 H 97 01/05/20 07:17 106 H 33 H 96 01/05/20 07:14 106 H 33 H 96 01/05/20 02:58 97 H 22 94 01/05/20 02:40 37.3 C 96 H 24 121/85 96 01/05/20 00:58 37 C 110 H 24 138/92 95 01/05/20 00:50 37 C 111 H 28 H 138/92 Laboratory Results 01/05/20 01/05/20 01/05/20 Range/Units 11:34 07:42 06:35 WBC (4.8-10.8) K/uL RBC (4.7-6.1) M/uL Hgb (14.0-18.0) g/dL POC Hgb (14.0-18.0) g/dl Hct (42-52) % POC Hct (42-52) % MCV (80-100) fL MCH (25-34) pg MCHC (32-36) g/dL RDW Std Deviation (36.4-46.3) fL RDW Coeff of Kasey (11.5-14.5) % Plt Count (130-400) K/uL MPV (7.4-10.4) fL Immature Gran % (Auto) % Neut % (Auto) % Lymph % (Auto) % [place] % (Auto) % Eos % (Auto) % Baso % (Auto) % Neut # (Auto) (1.4-6.5) K/uL Lymph # (Auto) (1.2-3.4) K/uL [place] # (Auto) (0.11-0.59) K/uL Eos # (Auto) (0-0.5) K/uL Baso # (Auto) (0-0.2) K/uL Immature Gran # (Auto) (0.00-0.02) K/uL Toxic Vacuolation ESR (0-14) mm/hr PT (9.0-12.0) Seconds INR (0.9-1.1) APTT (21.0-31.0) Seconds PTT Ratio Sample Site POC pH (7.35-7.45) POC pCO2 (35-46) mmHg POC pO2 (80-95) mmHg POC HCO3 (19-24) errol/L POC Base Excess (-9-1.8) errol/L POC ABG O2 Sat (90-95) % Yves Test VBG pH (7.36-7.41) VBG pCO2 (38-50) mmHg VBG pO2 mmHg VBG HCO3 mmol/L VBG O2 Saturation % VBG Base Excess mEq/L Barometric Pressure mm/Hg O2 Delivery Device POC Sodium (135-144) mmol/L Sodium (136-145) mmol/L POC Potassium (3.3-5.0) mmol/L Potassium (3.5-5.1) mmol/L POC Chloride (101-112) mmol/L Chloride (98-107) mmol/L Carbon Dioxide (21-32) mmol/L POC Total CO2 (24-31) mmol/L Anion Gap (3-11) POC Anion Gap (16-25) mmol/L POC BUN (7-18) mg/dl BUN (7-18) mg/dl Creatinine (0.6-1.4) mg/dl POC Creatinine (0.6-1.3) mg/dl Est Cr Clr Drug Dosing ml/min Est GFR ( Amer) Est GFR (Non-Af Amer) BUN/Creatinine Ratio (10-20) Glucose (70-99) mg/dl POC Glucose 206 H 159 H (70-99) mg/dl POC Glucose (other) (70-99) mg/dl Estimat Average Glucose mg/dl Hemoglobin A1c (4.5-5.6) % Lactate (0.4-2.0) mmol/L Calcium (8.5-10.1) mg/dl POC Ioniz Calcium Cooper (1.12-1.32) mmol/l Magnesium (1.8-2.4) mg/dl Ferritin (8-388) ng/ml Total Bilirubin (0.2-1) mg/dl AST (15-37) U/L ALT (12-78) U/L Alkaline Phosphatase (45-117) U/L Lactate Dehydrogenase (87-241) U/L Total Creatine Kinase (39-308) U/L CK-MB (CK-2) (0.5-3.6) ng/ml CK/CKMB % Calc Troponin I (0-0.045) ng/ml C-Reactive Protein (0-0.29) mg/dl Total Protein (6.4-8.2) gm/dl Albumin (3.4-5.0) gm/dl Globulin (2.5-4.0) gm/dl Albumin/Globulin Ratio (0.9-2) Procalcitonin (0-0.5) ng/ml Urine Color Urine Appearance (Clear) Urine pH (4.5-7.5) Ur Specific Sebastian (1.000-1.030) Urine Protein (Negative) Urine Glucose (UA) (Negative) Urine Ketones (Negative) Urine Blood (Negative) Urine Nitrite (Negative) Urine Bilirubin (Negative) Urine Urobilinogen (Negative) Ur Leukocyte Esterase (Negative) Urine WBC (Auto) (0-5) /hpf Urine RBC (Auto) (0-4) /hpf U Hyaline Cast (Auto) (0-5) /lpf U Epithel Cells (Auto) (0-5) /lpf Urine Bacteria (Auto) (Negative) Urine Yeast Nasal Screen MRSA (PCR) (Negative) Random Vancomycin 14.7 mcg/ml Valproic Acid (50-100) mcg/ml Levetiracetam Adenovirus (PCR) (NotDetected) B. pertussis DNA (PCR) (NotDetected) B.parapertussis DNA PCR (NotDetected) C. pneumoniae DNA (PCR) (NotDetected) Coronavirus OC43 (PCR) (NotDetected) Coronavirus HKU1 (PCR) (NotDetected) Coronavirus 229E (PCR) (NotDetected) COVID-19 PCR (Negative) Coronavirus NL63 (PCR) (NotDetected) Human Metapneumovir PCR (NotDetected) Influenza Type A (PCR) (NotDetected) Influenza Type B (PCR) (NotDetected) Urine Legionella Ag M. pneumoniae (PCR) (NotDetected) Parainfluenza 1 (PCR) (NotDetected) Parainfluenza 2 (PCR) (NotDetected) Parainfluenza 3 (PCR) (NotDetected) Parainfluenza 4 (PCR) (NotDetected) RSV (PCR) (NotDetected) Entero/Rhino (PCR) (NotDetected) SARS-CoV-2 RNA (RT-PCR) 01/05/20 01/05/20 01/05/20 Range/Units 06:35 06:35 06:35 WBC 11.61 H (4.8-10.8) K/uL RBC 4.36 L (4.7-6.1) M/uL Hgb 13.4 L (14.0-18.0) g/dL POC Hgb (14.0-18.0) g/dl Hct 45.0 (42-52) % POC Hct (42-52) % MCV 103.2 H (80-100) fL MCH 30.7 (25-34) pg MCHC 29.8 L (32-36) g/dL RDW Std Deviation (36.4-46.3) fL RDW Coeff of Kasey (11.5-14.5) % Plt Count 179 (130-400) K/uL MPV (7.4-10.4) fL Immature Gran % (Auto) 0.3 % Neut % (Auto) 81.3 % Lymph % (Auto) 13.7 % [place] % (Auto) 4.5 % Eos % (Auto) 0.1 % Baso % (Auto) 0.1 % Neut # (Auto) 9.44 H (1.4-6.5) K/uL Lymph # (Auto) 1.59 (1.2-3.4) K/uL [place] # (Auto) 0.52 (0.11-0.59) K/uL Eos # (Auto) 0.01 (0-0.5) K/uL Baso # (Auto) 0.01 (0-0.2) K/uL Immature Gran # (Auto) 0.04 H (0.00-0.02) K/uL Toxic Vacuolation 1+ ESR (0-14) mm/hr PT (9.0-12.0) Seconds INR (0.9-1.1) APTT (21.0-31.0) Seconds PTT Ratio Sample Site POC pH (7.35-7.45) POC pCO2 (35-46) mmHg POC pO2 (80-95) mmHg POC HCO3 (19-24) errol/L POC Base Excess (-9-1.8) errol/L POC ABG O2 Sat (90-95) % Yves Test VBG pH (7.36-7.41) VBG pCO2 (38-50) mmHg VBG pO2 mmHg VBG HCO3 mmol/L VBG O2 Saturation % VBG Base Excess mEq/L Barometric Pressure mm/Hg O2 Delivery Device POC Sodium (135-144) mmol/L Sodium 160 H* (136-145) mmol/L POC Potassium (3.3-5.0) mmol/L Potassium 4.7 (3.5-5.1) mmol/L POC Chloride (101-112) mmol/L Chloride 127 H (98-107) mmol/L Carbon Dioxide 27 (21-32) mmol/L POC Total CO2 (24-31) mmol/L Anion Gap 6.0 (3-11) POC Anion Gap (16-25) mmol/L POC BUN (7-18) mg/dl BUN 55 H (7-18) mg/dl Creatinine 1.66 H D (0.6-1.4) mg/dl POC Creatinine (0.6-1.3) mg/dl Est Cr Clr Drug Dosing 39.5 ml/min Est GFR ( Amer) 47.3 Est GFR (Non-Af Amer) 40.9 BUN/Creatinine Ratio 33.0 H (10-20) Glucose 163 H (70-99) mg/dl POC Glucose (70-99) mg/dl POC Glucose (other) (70-99) mg/dl Estimat Average Glucose 143 mg/dl Hemoglobin A1c 6.6 H (4.5-5.6) % Lactate (0.4-2.0) mmol/L Calcium 8.9 (8.5-10.1) mg/dl POC Ioniz Calcium Cooper (1.12-1.32) mmol/l Magnesium (1.8-2.4) mg/dl Ferritin (8-388) ng/ml Total Bilirubin 0.5 (0.2-1) mg/dl AST 10 L (15-37) U/L ALT 13 (12-78) U/L Alkaline Phosphatase 56 (45-117) U/L Lactate Dehydrogenase (87-241) U/L Total Creatine Kinase (39-308) U/L CK-MB (CK-2) (0.5-3.6) ng/ml CK/CKMB % Calc Troponin I (0-0.045) ng/ml C-Reactive Protein (0-0.29) mg/dl Total Protein 6.5 (6.4-8.2) gm/dl Albumin 2.1 L (3.4-5.0) gm/dl Globulin 4.4 H (2.5-4.0) gm/dl Albumin/Globulin Ratio 0.5 L (0.9-2) Procalcitonin (0-0.5) ng/ml Urine Color Urine Appearance (Clear) Urine pH (4.5-7.5) Ur Specific Sebastian (1.000-1.030) Urine Protein (Negative) Urine Glucose (UA) (Negative) Urine Ketones (Negative) Urine Blood (Negative) Urine Nitrite (Negative) Urine Bilirubin (Negative) Urine Urobilinogen (Negative) Ur Leukocyte Esterase (Negative) Urine WBC (Auto) (0-5) /hpf Urine RBC (Auto) (0-4) /hpf U Hyaline Cast (Auto) (0-5) /lpf U Epithel Cells (Auto) (0-5) /lpf Urine Bacteria (Auto) (Negative) Urine Yeast Nasal Screen MRSA (PCR) (Negative) Random Vancomycin mcg/ml Valproic Acid (50-100) mcg/ml Levetiracetam Adenovirus (PCR) (NotDetected) B. pertussis DNA (PCR) (NotDetected) B.parapertussis DNA PCR (NotDetected) C. pneumoniae DNA (PCR) (NotDetected) Coronavirus OC43 (PCR) (NotDetected) Coronavirus HKU1 (PCR) (NotDetected) Coronavirus 229E (PCR) (NotDetected) COVID-19 PCR (Negative) Coronavirus NL63 (PCR) (NotDetected) Human Metapneumovir PCR (NotDetected) Influenza Type A (PCR) (NotDetected) Influenza Type B (PCR) (NotDetected) Urine Legionella Ag M. pneumoniae (PCR) (NotDetected) Parainfluenza 1 (PCR) (NotDetected) Parainfluenza 2 (PCR) (NotDetected) Parainfluenza 3 (PCR) (NotDetected) Parainfluenza 4 (PCR) (NotDetected) RSV (PCR) (NotDetected) Entero/Rhino (PCR) (NotDetected) SARS-CoV-2 RNA (RT-PCR) 01/05/20 01/05/20 01/05/20 Range/Units 06:35 03:30 00:02 WBC (4.8-10.8) K/uL RBC (4.7-6.1) M/uL Hgb (14.0-18.0) g/dL POC Hgb (14.0-18.0) g/dl Hct (42-52) % POC Hct (42-52) % MCV (80-100) fL MCH (25-34) pg MCHC (32-36) g/dL RDW Std Deviation (36.4-46.3) fL RDW Coeff of Kasey (11.5-14.5) % Plt Count (130-400) K/uL MPV (7.4-10.4) fL Immature Gran % (Auto) % Neut % (Auto) % Lymph % (Auto) % [place] % (Auto) % Eos % (Auto) % Baso % (Auto) % Neut # (Auto) (1.4-6.5) K/uL Lymph # (Auto) (1.2-3.4) K/uL [place] # (Auto) (0.11-0.59) K/uL Eos # (Auto) (0-0.5) K/uL Baso # (Auto) (0-0.2) K/uL Immature Gran # (Auto) (0.00-0.02) K/uL Toxic Vacuolation ESR (0-14) mm/hr PT (9.0-12.0) Seconds INR (0.9-1.1) APTT (21.0-31.0) Seconds PTT Ratio Sample Site POC pH (7.35-7.45) POC pCO2 (35-46) mmHg POC pO2 (80-95) mmHg POC HCO3 (19-24) errol/L POC Base Excess (-9-1.8) errol/L POC ABG O2 Sat (90-95) % Yves Test VBG pH (7.36-7.41) VBG pCO2 (38-50) mmHg VBG pO2 mmHg VBG HCO3 mmol/L VBG O2 Saturation % VBG Base Excess mEq/L Barometric Pressure mm/Hg O2 Delivery Device POC Sodium (135-144) mmol/L Sodium (136-145) mmol/L POC Potassium (3.3-5.0) mmol/L Potassium (3.5-5.1) mmol/L POC Chloride (101-112) mmol/L Chloride (98-107) mmol/L Carbon Dioxide (21-32) mmol/L POC Total CO2 (24-31) mmol/L Anion Gap (3-11) POC Anion Gap (16-25) mmol/L POC BUN (7-18) mg/dl BUN (7-18) mg/dl Creatinine (0.6-1.4) mg/dl POC Creatinine (0.6-1.3) mg/dl Est Cr Clr Drug Dosing ml/min Est GFR ( Amer) Est GFR (Non-Af Amer) BUN/Creatinine Ratio (10-20) Glucose (70-99) mg/dl POC Glucose 178 H 176 H (70-99) mg/dl POC Glucose (other) (70-99) mg/dl Estimat Average Glucose mg/dl Hemoglobin A1c (4.5-5.6) % Lactate (0.4-2.0) mmol/L Calcium (8.5-10.1) mg/dl POC Ioniz Calcium Cooper (1.12-1.32) mmol/l Magnesium (1.8-2.4) mg/dl Ferritin (8-388) ng/ml Total Bilirubin (0.2-1) mg/dl AST (15-37) U/L ALT (12-78) U/L Alkaline Phosphatase (45-117) U/L Lactate Dehydrogenase (87-241) U/L Total Creatine Kinase (39-308) U/L CK-MB (CK-2) (0.5-3.6) ng/ml CK/CKMB % Calc Troponin I (0-0.045) ng/ml C-Reactive Protein (0-0.29) mg/dl Total Protein (6.4-8.2) gm/dl Albumin (3.4-5.0) gm/dl Globulin (2.5-4.0) gm/dl Albumin/Globulin Ratio (0.9-2) Procalcitonin (0-0.5) ng/ml Urine Color Urine Appearance (Clear) Urine pH (4.5-7.5) Ur Specific Sebastian (1.000-1.030) Urine Protein (Negative) Urine Glucose (UA) (Negative) Urine Ketones (Negative) Urine Blood (Negative) Urine Nitrite (Negative) Urine Bilirubin (Negative) Urine Urobilinogen (Negative) Ur Leukocyte Esterase (Negative) Urine WBC (Auto) (0-5) /hpf Urine RBC (Auto) (0-4) /hpf U Hyaline Cast (Auto) (0-5) /lpf U Epithel Cells (Auto) (0-5) /lpf Urine Bacteria (Auto) (Negative) Urine Yeast Nasal Screen MRSA (PCR) (Negative) Random Vancomycin mcg/ml Valproic Acid (50-100) mcg/ml Levetiracetam Pending Adenovirus (PCR) (NotDetected) B. pertussis DNA (PCR) (NotDetected) B.parapertussis DNA PCR (NotDetected) C. pneumoniae DNA (PCR) (NotDetected) Coronavirus OC43 (PCR) (NotDetected) Coronavirus HKU1 (PCR) (NotDetected) Coronavirus 229E (PCR) (NotDetected) COVID-19 PCR (Negative) Coronavirus NL63 (PCR) (NotDetected) Human Metapneumovir PCR (NotDetected) Influenza Type A (PCR) (NotDetected) Influenza Type B (PCR) (NotDetected) Urine Legionella Ag M. pneumoniae (PCR) (NotDetected) Parainfluenza 1 (PCR) (NotDetected) Parainfluenza 2 (PCR) (NotDetected) Parainfluenza 3 (PCR) (NotDetected) Parainfluenza 4 (PCR) (NotDetected) RSV (PCR) (NotDetected) Entero/Rhino (PCR) (NotDetected) SARS-CoV-2 RNA (RT-PCR) 01/04/20 01/04/20 01/04/20 Range/Units 22:00 21:05 20:21 WBC (4.8-10.8) K/uL RBC (4.7-6.1) M/uL Hgb (14.0-18.0) g/dL POC Hgb (14.0-18.0) g/dl Hct (42-52) % POC Hct (42-52) % MCV (80-100) fL MCH (25-34) pg MCHC (32-36) g/dL RDW Std Deviation (36.4-46.3) fL RDW Coeff of Kasey (11.5-14.5) % Plt Count (130-400) K/uL MPV (7.4-10.4) fL Immature Gran % (Auto) % Neut % (Auto) % Lymph % (Auto) % [place] % (Auto) % Eos % (Auto) % Baso % (Auto) % Neut # (Auto) (1.4-6.5) K/uL Lymph # (Auto) (1.2-3.4) K/uL [place] # (Auto) (0.11-0.59) K/uL Eos # (Auto) (0-0.5) K/uL Baso # (Auto) (0-0.2) K/uL Immature Gran # (Auto) (0.00-0.02) K/uL Toxic Vacuolation ESR (0-14) mm/hr PT (9.0-12.0) Seconds INR (0.9-1.1) APTT (21.0-31.0) Seconds PTT Ratio Sample Site POC pH (7.35-7.45) POC pCO2 (35-46) mmHg POC pO2 (80-95) mmHg POC HCO3 (19-24) errol/L POC Base Excess (-9-1.8) errol/L POC ABG O2 Sat (90-95) % Yves Test VBG pH (7.36-7.41) VBG pCO2 (38-50) mmHg VBG pO2 mmHg VBG HCO3 mmol/L VBG O2 Saturation % VBG Base Excess mEq/L Barometric Pressure mm/Hg O2 Delivery Device POC Sodium (135-144) mmol/L Sodium (136-145) mmol/L POC Potassium (3.3-5.0) mmol/L Potassium (3.5-5.1) mmol/L POC Chloride (101-112) mmol/L Chloride (98-107) mmol/L Carbon Dioxide (21-32) mmol/L POC Total CO2 (24-31) mmol/L Anion Gap (3-11) POC Anion Gap (16-25) mmol/L POC BUN (7-18) mg/dl BUN (7-18) mg/dl Creatinine (0.6-1.4) mg/dl POC Creatinine (0.6-1.3) mg/dl Est Cr Clr Drug Dosing ml/min Est GFR ( Amer) Est GFR (Non-Af Amer) BUN/Creatinine Ratio (10-20) Glucose (70-99) mg/dl POC Glucose 172 H (70-99) mg/dl POC Glucose (other) (70-99) mg/dl Estimat Average Glucose mg/dl Hemoglobin A1c (4.5-5.6) % Lactate (0.4-2.0) mmol/L Calcium (8.5-10.1) mg/dl POC Ioniz Calcium Cooper (1.12-1.32) mmol/l Magnesium (1.8-2.4) mg/dl Ferritin (8-388) ng/ml Total Bilirubin (0.2-1) mg/dl AST (15-37) U/L ALT (12-78) U/L Alkaline Phosphatase (45-117) U/L Lactate Dehydrogenase (87-241) U/L Total Creatine Kinase (39-308) U/L CK-MB (CK-2) (0.5-3.6) ng/ml CK/CKMB % Calc Troponin I (0-0.045) ng/ml C-Reactive Protein (0-0.29) mg/dl Total Protein (6.4-8.2) gm/dl Albumin (3.4-5.0) gm/dl Globulin (2.5-4.0) gm/dl Albumin/Globulin Ratio (0.9-2) Procalcitonin (0-0.5) ng/ml Urine Color Urine Appearance (Clear) Urine pH (4.5-7.5) Ur Specific Sebastian (1.000-1.030) Urine Protein (Negative) Urine Glucose (UA) (Negative) Urine Ketones (Negative) Urine Blood (Negative) Urine Nitrite (Negative) Urine Bilirubin (Negative) Urine Urobilinogen (Negative) Ur Leukocyte Esterase (Negative) Urine WBC (Auto) (0-5) /hpf Urine RBC (Auto) (0-4) /hpf U Hyaline Cast (Auto) (0-5) /lpf U Epithel Cells (Auto) (0-5) /lpf Urine Bacteria (Auto) (Negative) Urine Yeast Nasal Screen MRSA (PCR) Uninterpretable (Negative) Random Vancomycin mcg/ml Valproic Acid 61 (50-100) mcg/ml Levetiracetam Adenovirus (PCR) (NotDetected) B. pertussis DNA (PCR) (NotDetected) B.parapertussis DNA PCR (NotDetected) C. pneumoniae DNA (PCR) (NotDetected) Coronavirus OC43 (PCR) (NotDetected) Coronavirus HKU1 (PCR) (NotDetected) Coronavirus 229E (PCR) (NotDetected) COVID-19 PCR (Negative) Coronavirus NL63 (PCR) (NotDetected) Human Metapneumovir PCR (NotDetected) Influenza Type A (PCR) (NotDetected) Influenza Type B (PCR) (NotDetected) Urine Legionella Ag M. pneumoniae (PCR) (NotDetected) Parainfluenza 1 (PCR) (NotDetected) Parainfluenza 2 (PCR) (NotDetected) Parainfluenza 3 (PCR) (NotDetected) Parainfluenza 4 (PCR) (NotDetected) RSV (PCR) (NotDetected) Entero/Rhino (PCR) (NotDetected) SARS-CoV-2 RNA (RT-PCR) 01/04/20 01/04/20 01/04/20 Range/Units 20:10 18:52 18:14 WBC (4.8-10.8) K/uL RBC (4.7-6.1) M/uL Hgb (14.0-18.0) g/dL POC Hgb (14.0-18.0) g/dl Hct (42-52) % POC Hct (42-52) % MCV (80-100) fL MCH (25-34) pg MCHC (32-36) g/dL RDW Std Deviation (36.4-46.3) fL RDW Coeff of Kasey (11.5-14.5) % Plt Count (130-400) K/uL MPV (7.4-10.4) fL Immature Gran % (Auto) % Neut % (Auto) % Lymph % (Auto) % [place] % (Auto) % Eos % (Auto) % Baso % (Auto) % Neut # (Auto) (1.4-6.5) K/uL Lymph # (Auto) (1.2-3.4) K/uL [place] # (Auto) (0.11-0.59) K/uL Eos # (Auto) (0-0.5) K/uL Baso # (Auto) (0-0.2) K/uL Immature Gran # (Auto) (0.00-0.02) K/uL Toxic Vacuolation ESR (0-14) mm/hr PT (9.0-12.0) Seconds INR (0.9-1.1) APTT (21.0-31.0) Seconds PTT Ratio Sample Site L Radial POC pH 7.41 (7.35-7.45) POC pCO2 39 (35-46) mmHg POC pO2 62 L (80-95) mmHg POC HCO3 25 H (19-24) errol/L POC Base Excess 0.0 (-9-1.8) errol/L POC ABG O2 Sat 92.0 (90-95) % Yves Test Pass VBG pH (7.36-7.41) VBG pCO2 (38-50) mmHg VBG pO2 mmHg VBG HCO3 mmol/L VBG O2 Saturation % VBG Base Excess mEq/L Barometric Pressure mm/Hg O2 Delivery Device Other POC Sodium (135-144) mmol/L Sodium (136-145) mmol/L POC Potassium (3.3-5.0) mmol/L Potassium (3.5-5.1) mmol/L POC Chloride (101-112) mmol/L Chloride (98-107) mmol/L Carbon Dioxide (21-32) mmol/L POC Total CO2 26 (24-31) mmol/L Anion Gap (3-11) POC Anion Gap (16-25) mmol/L POC BUN (7-18) mg/dl BUN (7-18) mg/dl Creatinine (0.6-1.4) mg/dl POC Creatinine (0.6-1.3) mg/dl Est Cr Clr Drug Dosing ml/min Est GFR ( Amer) Est GFR (Non-Af Amer) BUN/Creatinine Ratio (10-20) Glucose (70-99) mg/dl POC Glucose (70-99) mg/dl POC Glucose (other) (70-99) mg/dl Estimat Average Glucose mg/dl Hemoglobin A1c (4.5-5.6) % Lactate 2.7 H* (0.4-2.0) mmol/L Calcium (8.5-10.1) mg/dl POC Ioniz Calcium Cooper (1.12-1.32) mmol/l Magnesium (1.8-2.4) mg/dl Ferritin (8-388) ng/ml Total Bilirubin (0.2-1) mg/dl AST (15-37) U/L ALT (12-78) U/L Alkaline Phosphatase (45-117) U/L Lactate Dehydrogenase (87-241) U/L Total Creatine Kinase (39-308) U/L CK-MB (CK-2) (0.5-3.6) ng/ml CK/CKMB % Calc Troponin I (0-0.045) ng/ml C-Reactive Protein (0-0.29) mg/dl Total Protein (6.4-8.2) gm/dl Albumin (3.4-5.0) gm/dl Globulin (2.5-4.0) gm/dl Albumin/Globulin Ratio (0.9-2) Procalcitonin (0-0.5) ng/ml Urine Color Urine Appearance (Clear) Urine pH (4.5-7.5) Ur Specific Sebastian (1.000-1.030) Urine Protein (Negative) Urine Glucose (UA) (Negative) Urine Ketones (Negative) Urine Blood (Negative) Urine Nitrite (Negative) Urine Bilirubin (Negative) Urine Urobilinogen (Negative) Ur Leukocyte Esterase (Negative) Urine WBC (Auto) (0-5) /hpf Urine RBC (Auto) (0-4) /hpf U Hyaline Cast (Auto) (0-5) /lpf U Epithel Cells (Auto) (0-5) /lpf Urine Bacteria (Auto) (Negative) Urine Yeast Nasal Screen MRSA (PCR) (Negative) Random Vancomycin mcg/ml Valproic Acid (50-100) mcg/ml Levetiracetam Adenovirus (PCR) (NotDetected) B. pertussis DNA (PCR) (NotDetected) B.parapertussis DNA PCR (NotDetected) C. pneumoniae DNA (PCR) (NotDetected) Coronavirus OC43 (PCR) (NotDetected) Coronavirus HKU1 (PCR) (NotDetected) Coronavirus 229E (PCR) (NotDetected) COVID-19 PCR (Negative) Coronavirus NL63 (PCR) (NotDetected) Human Metapneumovir PCR (NotDetected) Influenza Type A (PCR) (NotDetected) Influenza Type B (PCR) (NotDetected) Urine Legionella Ag Pending M. pneumoniae (PCR) (NotDetected) Parainfluenza 1 (PCR) (NotDetected) Parainfluenza 2 (PCR) (NotDetected) Parainfluenza 3 (PCR) (NotDetected) Parainfluenza 4 (PCR) (NotDetected) RSV (PCR) (NotDetected) Entero/Rhino (PCR) (NotDetected) SARS-CoV-2 RNA (RT-PCR) 01/04/20 01/04/20 01/04/20 Range/Units 17:30 17:20 17:03 WBC (4.8-10.8) K/uL RBC (4.7-6.1) M/uL Hgb (14.0-18.0) g/dL POC Hgb 15.3 (14.0-18.0) g/dl Hct (42-52) % POC Hct 45 (42-52) % MCV (80-100) fL MCH (25-34) pg MCHC (32-36) g/dL RDW Std Deviation (36.4-46.3) fL RDW Coeff of Kasey (11.5-14.5) % Plt Count (130-400) K/uL MPV (7.4-10.4) fL Immature Gran % (Auto) % Neut % (Auto) % Lymph % (Auto) % [place] % (Auto) % Eos % (Auto) % Baso % (Auto) % Neut # (Auto) (1.4-6.5) K/uL Lymph # (Auto) (1.2-3.4) K/uL [place] # (Auto) (0.11-0.59) K/uL Eos # (Auto) (0-0.5) K/uL Baso # (Auto) (0-0.2) K/uL Immature Gran # (Auto) (0.00-0.02) K/uL Toxic Vacuolation ESR (0-14) mm/hr PT (9.0-12.0) Seconds INR (0.9-1.1) APTT (21.0-31.0) Seconds PTT Ratio Sample Site POC pH (7.35-7.45) POC pCO2 (35-46) mmHg POC pO2 (80-95) mmHg POC HCO3 (19-24) errol/L POC Base Excess (-9-1.8) errol/L POC ABG O2 Sat (90-95) % Yves Test VBG pH 7.47 H (7.36-7.41) VBG pCO2 43 (38-50) mmHg VBG pO2 42 mmHg VBG HCO3 31 mmol/L VBG O2 Saturation 77.1 % VBG Base Excess 6.1 mEq/L Barometric Pressure 731.4 mm/Hg O2 Delivery Device POC Sodium 155 H (135-144) mmol/L Sodium (136-145) mmol/L POC Potassium 4.5 (3.3-5.0) mmol/L Potassium (3.5-5.1) mmol/L POC Chloride 120 H (101-112) mmol/L Chloride (98-107) mmol/L Carbon Dioxide (21-32) mmol/L POC Total CO2 28 (24-31) mmol/L Anion Gap (3-11) POC Anion Gap 12.0 L (16-25) mmol/L POC BUN 54 H (7-18) mg/dl BUN (7-18) mg/dl Creatinine (0.6-1.4) mg/dl POC Creatinine 1.9 H (0.6-1.3) mg/dl Est Cr Clr Drug Dosing ml/min Est GFR ( Amer) Est GFR (Non-Af Amer) BUN/Creatinine Ratio (10-20) Glucose (70-99) mg/dl POC Glucose (70-99) mg/dl POC Glucose (other) 205 H (70-99) mg/dl Estimat Average Glucose mg/dl Hemoglobin A1c (4.5-5.6) % Lactate (0.4-2.0) mmol/L Calcium (8.5-10.1) mg/dl POC Ioniz Calcium Cooper 1.11 L (1.12-1.32) mmol/l Magnesium (1.8-2.4) mg/dl Ferritin (8-388) ng/ml Total Bilirubin (0.2-1) mg/dl AST (15-37) U/L ALT (12-78) U/L Alkaline Phosphatase (45-117) U/L Lactate Dehydrogenase (87-241) U/L Total Creatine Kinase (39-308) U/L CK-MB (CK-2) (0.5-3.6) ng/ml CK/CKMB % Calc Troponin I (0-0.045) ng/ml C-Reactive Protein (0-0.29) mg/dl Total Protein (6.4-8.2) gm/dl Albumin (3.4-5.0) gm/dl Globulin (2.5-4.0) gm/dl Albumin/Globulin Ratio (0.9-2) Procalcitonin (0-0.5) ng/ml Urine Color Urine Appearance (Clear) Urine pH (4.5-7.5) Ur Specific Sebastian (1.000-1.030) Urine Protein (Negative) Urine Glucose (UA) (Negative) Urine Ketones (Negative) Urine Blood (Negative) Urine Nitrite (Negative) Urine Bilirubin (Negative) Urine Urobilinogen (Negative) Ur Leukocyte Esterase (Negative) Urine WBC (Auto) (0-5) /hpf Urine RBC (Auto) (0-4) /hpf U Hyaline Cast (Auto) (0-5) /lpf U Epithel Cells (Auto) (0-5) /lpf Urine Bacteria (Auto) (Negative) Urine Yeast Nasal Screen MRSA (PCR) (Negative) Random Vancomycin mcg/ml Valproic Acid (50-100) mcg/ml Levetiracetam Adenovirus (PCR) (NotDetected) B. pertussis DNA (PCR) (NotDetected) B.parapertussis DNA PCR (NotDetected) C. pneumoniae DNA (PCR) (NotDetected) Coronavirus OC43 (PCR) (NotDetected) Coronavirus HKU1 (PCR) (NotDetected) Coronavirus 229E (PCR) (NotDetected) COVID-19 PCR NEGATIVE (Negative) Coronavirus NL63 (PCR) (NotDetected) Human Metapneumovir PCR (NotDetected) Influenza Type A (PCR) (NotDetected) Influenza Type B (PCR) (NotDetected) Urine Legionella Ag M. pneumoniae (PCR) (NotDetected) Parainfluenza 1 (PCR) (NotDetected) Parainfluenza 2 (PCR) (NotDetected) Parainfluenza 3 (PCR) (NotDetected) Parainfluenza 4 (PCR) (NotDetected) RSV (PCR) (NotDetected) Entero/Rhino (PCR) (NotDetected) SARS-CoV-2 RNA (RT-PCR) 01/04/20 01/04/20 01/04/20 Range/Units 17:02 17:00 17:00 WBC (4.8-10.8) K/uL RBC (4.7-6.1) M/uL Hgb (14.0-18.0) g/dL POC Hgb (14.0-18.0) g/dl Hct (42-52) % POC Hct (42-52) % MCV (80-100) fL MCH (25-34) pg MCHC (32-36) g/dL RDW Std Deviation (36.4-46.3) fL RDW Coeff of Kasey (11.5-14.5) % Plt Count (130-400) K/uL MPV (7.4-10.4) fL Immature Gran % (Auto) % Neut % (Auto) % Lymph % (Auto) % [place] % (Auto) % Eos % (Auto) % Baso % (Auto) % Neut # (Auto) (1.4-6.5) K/uL Lymph # (Auto) (1.2-3.4) K/uL [place] # (Auto) (0.11-0.59) K/uL Eos # (Auto) (0-0.5) K/uL Baso # (Auto) (0-0.2) K/uL Immature Gran # (Auto) (0.00-0.02) K/uL Toxic Vacuolation ESR (0-14) mm/hr PT (9.0-12.0) Seconds INR (0.9-1.1) APTT (21.0-31.0) Seconds PTT Ratio Sample Site POC pH (7.35-7.45) POC pCO2 (35-46) mmHg POC pO2 (80-95) mmHg POC HCO3 (19-24) errol/L POC Base Excess (-9-1.8) errol/L POC ABG O2 Sat (90-95) % Yves Test VBG pH (7.36-7.41) VBG pCO2 (38-50) mmHg VBG pO2 mmHg VBG HCO3 mmol/L VBG O2 Saturation % VBG Base Excess mEq/L Barometric Pressure mm/Hg O2 Delivery Device POC Sodium (135-144) mmol/L Sodium (136-145) mmol/L POC Potassium (3.3-5.0) mmol/L Potassium (3.5-5.1) mmol/L POC Chloride (101-112) mmol/L Chloride (98-107) mmol/L Carbon Dioxide (21-32) mmol/L POC Total CO2 (24-31) mmol/L Anion Gap (3-11) POC Anion Gap (16-25) mmol/L POC BUN (7-18) mg/dl BUN (7-18) mg/dl Creatinine (0.6-1.4) mg/dl POC Creatinine (0.6-1.3) mg/dl Est Cr Clr Drug Dosing ml/min Est GFR ( Amer) Est GFR (Non-Af Amer) BUN/Creatinine Ratio (10-20) Glucose (70-99) mg/dl POC Glucose (70-99) mg/dl POC Glucose (other) (70-99) mg/dl Estimat Average Glucose mg/dl Hemoglobin A1c (4.5-5.6) % Lactate (0.4-2.0) mmol/L Calcium (8.5-10.1) mg/dl POC Ioniz Calcium Cooper (1.12-1.32) mmol/l Magnesium (1.8-2.4) mg/dl Ferritin (8-388) ng/ml Total Bilirubin (0.2-1) mg/dl AST (15-37) U/L ALT (12-78) U/L Alkaline Phosphatase (45-117) U/L Lactate Dehydrogenase (87-241) U/L Total Creatine Kinase (39-308) U/L CK-MB (CK-2) (0.5-3.6) ng/ml CK/CKMB % Calc Troponin I (0-0.045) ng/ml C-Reactive Protein (0-0.29) mg/dl Total Protein (6.4-8.2) gm/dl Albumin (3.4-5.0) gm/dl Globulin (2.5-4.0) gm/dl Albumin/Globulin Ratio (0.9-2) Procalcitonin (0-0.5) ng/ml Urine Color [place] Urine Appearance Cloudy A (Clear) Urine pH 5.0 (4.5-7.5) Ur Specific Sebastian 1.038 H (1.000-1.030) Urine Protein 2+ H (Negative) Urine Glucose (UA) Negative (Negative) Urine Ketones Trace H (Negative) Urine Blood 3+ H (Negative) Urine Nitrite Positive A (Negative) Urine Bilirubin Negative (Negative) Urine Urobilinogen Negative (Negative) Ur Leukocyte Esterase 1+ H (Negative) Urine WBC (Auto) 5-10 H (0-5) /hpf Urine RBC (Auto) >30 H (0-4) /hpf U Hyaline Cast (Auto) 1-5 (0-5) /lpf U Epithel Cells (Auto) >30 H (0-5) /lpf Urine Bacteria (Auto) 2+ H (Negative) Urine Yeast Not Reportable Nasal Screen MRSA (PCR) (Negative) Random Vancomycin mcg/ml Valproic Acid (50-100) mcg/ml Levetiracetam Adenovirus (PCR) (NotDetected) B. pertussis DNA (PCR) (NotDetected) B.parapertussis DNA PCR (NotDetected) C. pneumoniae DNA (PCR) (NotDetected) Coronavirus OC43 (PCR) (NotDetected) Coronavirus HKU1 (PCR) (NotDetected) Coronavirus 229E (PCR) (NotDetected) COVID-19 PCR (Negative) Coronavirus NL63 (PCR) (NotDetected) Human Metapneumovir PCR (NotDetected) Influenza Type A (PCR) Cancelled (NotDetected) Influenza Type B (PCR) Cancelled (NotDetected) Urine Legionella Ag M. pneumoniae (PCR) (NotDetected) Parainfluenza 1 (PCR) (NotDetected) Parainfluenza 2 (PCR) (NotDetected) Parainfluenza 3 (PCR) (NotDetected) Parainfluenza 4 (PCR) (NotDetected) RSV (PCR) (NotDetected) Entero/Rhino (PCR) (NotDetected) SARS-CoV-2 RNA (RT-PCR) Cancelled 01/04/20 01/04/20 01/04/20 Range/Units 17:00 16:59 16:51 WBC (4.8-10.8) K/uL RBC (4.7-6.1) M/uL Hgb (14.0-18.0) g/dL POC Hgb (14.0-18.0) g/dl Hct (42-52) % POC Hct (42-52) % MCV (80-100) fL MCH (25-34) pg MCHC (32-36) g/dL RDW Std Deviation (36.4-46.3) fL RDW Coeff of Kasey (11.5-14.5) % Plt Count (130-400) K/uL MPV (7.4-10.4) fL Immature Gran % (Auto) % Neut % (Auto) % Lymph % (Auto) % [place] % (Auto) % Eos % (Auto) % Baso % (Auto) % Neut # (Auto) (1.4-6.5) K/uL Lymph # (Auto) (1.2-3.4) K/uL [place] # (Auto) (0.11-0.59) K/uL Eos # (Auto) (0-0.5) K/uL Baso # (Auto) (0-0.2) K/uL Immature Gran # (Auto) (0.00-0.02) K/uL Toxic Vacuolation ESR (0-14) mm/hr PT (9.0-12.0) Seconds INR (0.9-1.1) APTT (21.0-31.0) Seconds PTT Ratio Sample Site POC pH (7.35-7.45) POC pCO2 (35-46) mmHg POC pO2 (80-95) mmHg POC HCO3 (19-24) errol/L POC Base Excess (-9-1.8) errol/L POC ABG O2 Sat (90-95) % Yves Test VBG pH (7.36-7.41) VBG pCO2 (38-50) mmHg VBG pO2 mmHg VBG HCO3 mmol/L VBG O2 Saturation % VBG Base Excess mEq/L Barometric Pressure mm/Hg O2 Delivery Device POC Sodium (135-144) mmol/L Sodium (136-145) mmol/L POC Potassium (3.3-5.0) mmol/L Potassium (3.5-5.1) mmol/L POC Chloride (101-112) mmol/L Chloride (98-107) mmol/L Carbon Dioxide (21-32) mmol/L POC Total CO2 (24-31) mmol/L Anion Gap (3-11) POC Anion Gap (16-25) mmol/L POC BUN (7-18) mg/dl BUN (7-18) mg/dl Creatinine (0.6-1.4) mg/dl POC Creatinine (0.6-1.3) mg/dl Est Cr Clr Drug Dosing ml/min Est GFR ( Amer) Est GFR (Non-Af Amer) BUN/Creatinine Ratio (10-20) Glucose (70-99) mg/dl POC Glucose (70-99) mg/dl POC Glucose (other) (70-99) mg/dl Estimat Average Glucose mg/dl Hemoglobin A1c (4.5-5.6) % Lactate (0.4-2.0) mmol/L Calcium (8.5-10.1) mg/dl POC Ioniz Calcium Cooper (1.12-1.32) mmol/l Magnesium (1.8-2.4) mg/dl Ferritin (8-388) ng/ml Total Bilirubin (0.2-1) mg/dl AST (15-37) U/L ALT (12-78) U/L Alkaline Phosphatase (45-117) U/L Lactate Dehydrogenase 304 H (87-241) U/L Total Creatine Kinase (39-308) U/L CK-MB (CK-2) (0.5-3.6) ng/ml CK/CKMB % Calc Troponin I (0-0.045) ng/ml C-Reactive Protein (0-0.29) mg/dl Total Protein (6.4-8.2) gm/dl Albumin (3.4-5.0) gm/dl Globulin (2.5-4.0) gm/dl Albumin/Globulin Ratio (0.9-2) Procalcitonin 1.52 H (0-0.5) ng/ml Urine Color Urine Appearance (Clear) Urine pH (4.5-7.5) Ur Specific Sebastian (1.000-1.030) Urine Protein (Negative) Urine Glucose (UA) (Negative) Urine Ketones (Negative) Urine Blood (Negative) Urine Nitrite (Negative) Urine Bilirubin (Negative) Urine Urobilinogen (Negative) Ur Leukocyte Esterase (Negative) Urine WBC (Auto) (0-5) /hpf Urine RBC (Auto) (0-4) /hpf U Hyaline Cast (Auto) (0-5) /lpf U Epithel Cells (Auto) (0-5) /lpf Urine Bacteria (Auto) (Negative) Urine Yeast Nasal Screen MRSA (PCR) (Negative) Random Vancomycin mcg/ml Valproic Acid (50-100) mcg/ml Levetiracetam Adenovirus (PCR) Not Detected (NotDetected) B. pertussis DNA (PCR) Not Detected (NotDetected) B.parapertussis DNA PCR Not Detected (NotDetected) C. pneumoniae DNA (PCR) Not Detected (NotDetected) Coronavirus OC43 (PCR) Not Detected (NotDetected) Coronavirus HKU1 (PCR) Not Detected (NotDetected) Coronavirus 229E (PCR) Not Detected (NotDetected) COVID-19 PCR (Negative) Coronavirus NL63 (PCR) Not Detected (NotDetected) Human Metapneumovir PCR Not Detected (NotDetected) Influenza Type A (PCR) Not Detected (NotDetected) Influenza Type B (PCR) Not Detected (NotDetected) Urine Legionella Ag M. pneumoniae (PCR) Not Detected (NotDetected) Parainfluenza 1 (PCR) Not Detected (NotDetected) Parainfluenza 2 (PCR) Not Detected (NotDetected) Parainfluenza 3 (PCR) Not Detected (NotDetected) Parainfluenza 4 (PCR) Not Detected (NotDetected) RSV (PCR) Not Detected (NotDetected) Entero/Rhino (PCR) Not Detected (NotDetected) SARS-CoV-2 RNA (RT-PCR) 01/04/20 01/04/20 01/04/20 Range/Units 16:51 16:51 16:51 WBC (4.8-10.8) K/uL RBC (4.7-6.1) M/uL Hgb (14.0-18.0) g/dL POC Hgb (14.0-18.0) g/dl Hct (42-52) % POC Hct (42-52) % MCV (80-100) fL MCH (25-34) pg MCHC (32-36) g/dL RDW Std Deviation (36.4-46.3) fL RDW Coeff of Kasey (11.5-14.5) % Plt Count (130-400) K/uL MPV (7.4-10.4) fL Immature Gran % (Auto) % Neut % (Auto) % Lymph % (Auto) % [place] % (Auto) % Eos % (Auto) % Baso % (Auto) % Neut # (Auto) (1.4-6.5) K/uL Lymph # (Auto) (1.2-3.4) K/uL [place] # (Auto) (0.11-0.59) K/uL Eos # (Auto) (0-0.5) K/uL Baso # (Auto) (0-0.2) K/uL Immature Gran # (Auto) (0.00-0.02) K/uL Toxic Vacuolation ESR (0-14) mm/hr PT 11.2 (9.0-12.0) Seconds INR 1.1 (0.9-1.1) APTT 26.2 (21.0-31.0) Seconds PTT Ratio 0.9 Sample Site POC pH (7.35-7.45) POC pCO2 (35-46) mmHg POC pO2 (80-95) mmHg POC HCO3 (19-24) errol/L POC Base Excess (-9-1.8) errol/L POC ABG O2 Sat (90-95) % Yves Test VBG pH (7.36-7.41) VBG pCO2 (38-50) mmHg VBG pO2 mmHg VBG HCO3 mmol/L VBG O2 Saturation % VBG Base Excess mEq/L Barometric Pressure mm/Hg O2 Delivery Device POC Sodium (135-144) mmol/L Sodium 154 H (136-145) mmol/L POC Potassium (3.3-5.0) mmol/L Potassium 4.5 (3.5-5.1) mmol/L POC Chloride (101-112) mmol/L Chloride 118 H (98-107) mmol/L Carbon Dioxide 30 (21-32) mmol/L POC Total CO2 (24-31) mmol/L Anion Gap 6.0 (3-11) POC Anion Gap (16-25) mmol/L POC BUN (7-18) mg/dl BUN 58 H (7-18) mg/dl Creatinine 2.11 H (0.6-1.4) mg/dl POC Creatinine (0.6-1.3) mg/dl Est Cr Clr Drug Dosing 30.3 ml/min Est GFR ( Amer) 35.4 Est GFR (Non-Af Amer) 30.6 BUN/Creatinine Ratio 27.6 H (10-20) Glucose 204 H (70-99) mg/dl POC Glucose (70-99) mg/dl POC Glucose (other) (70-99) mg/dl Estimat Average Glucose mg/dl Hemoglobin A1c (4.5-5.6) % Lactate 2.9 H* (0.4-2.0) mmol/L Calcium 10.1 (8.5-10.1) mg/dl POC Ioniz Calcium Cooper (1.12-1.32) mmol/l Magnesium 3.2 H (1.8-2.4) mg/dl Ferritin 504.2 H (8-388) ng/ml Total Bilirubin 0.6 (0.2-1) mg/dl AST 8 L (15-37) U/L ALT 19 (12-78) U/L Alkaline Phosphatase 67 (45-117) U/L Lactate Dehydrogenase (87-241) U/L Total Creatine Kinase 38 L (39-308) U/L CK-MB (CK-2) < 1.0 (0.5-3.6) ng/ml CK/CKMB % Calc TNP Troponin I < 0.015 (0-0.045) ng/ml C-Reactive Protein 44.30 H (0-0.29) mg/dl Total Protein 7.6 (6.4-8.2) gm/dl Albumin 2.8 L (3.4-5.0) gm/dl Globulin 4.8 H (2.5-4.0) gm/dl Albumin/Globulin Ratio 0.6 L (0.9-2) Procalcitonin (0-0.5) ng/ml Urine Color Urine Appearance (Clear) Urine pH (4.5-7.5) Ur Specific Sebastian (1.000-1.030) Urine Protein (Negative) Urine Glucose (UA) (Negative) Urine Ketones (Negative) Urine Blood (Negative) Urine Nitrite (Negative) Urine Bilirubin (Negative) Urine Urobilinogen (Negative) Ur Leukocyte Esterase (Negative) Urine WBC (Auto) (0-5) /hpf Urine RBC (Auto) (0-4) /hpf U Hyaline Cast (Auto) (0-5) /lpf U Epithel Cells (Auto) (0-5) /lpf Urine Bacteria (Auto) (Negative) Urine Yeast Nasal Screen MRSA (PCR) (Negative) Random Vancomycin mcg/ml Valproic Acid (50-100) mcg/ml Levetiracetam Adenovirus (PCR) (NotDetected) B. pertussis DNA (PCR) (NotDetected) B.parapertussis DNA PCR (NotDetected) C. pneumoniae DNA (PCR) (NotDetected) Coronavirus OC43 (PCR) (NotDetected) Coronavirus HKU1 (PCR) (NotDetected) Coronavirus 229E (PCR) (NotDetected) COVID-19 PCR (Negative) Coronavirus NL63 (PCR) (NotDetected) Human Metapneumovir PCR (NotDetected) Influenza Type A (PCR) (NotDetected) Influenza Type B (PCR) (NotDetected) Urine Legionella Ag M. pneumoniae (PCR) (NotDetected) Parainfluenza 1 (PCR) (NotDetected) Parainfluenza 2 (PCR) (NotDetected) Parainfluenza 3 (PCR) (NotDetected) Parainfluenza 4 (PCR) (NotDetected) RSV (PCR) (NotDetected) Entero/Rhino (PCR) (NotDetected) SARS-CoV-2 RNA (RT-PCR) 01/04/20 01/04/20 Range/Units 16:51 16:51 WBC 12.78 H (4.8-10.8) K/uL RBC 4.95 (4.7-6.1) M/uL Hgb 15.9 (14.0-18.0) g/dL POC Hgb (14.0-18.0) g/dl Hct 49.1 (42-52) % POC Hct (42-52) % MCV 99.2 (80-100) fL MCH 32.1 (25-34) pg MCHC 32.4 (32-36) g/dL RDW Std Deviation 50.5 H (36.4-46.3) fL RDW Coeff of Kasey 14.2 (11.5-14.5) % Plt Count 199 (130-400) K/uL MPV 11.7 H (7.4-10.4) fL Immature Gran % (Auto) 1.5 % Neut % (Auto) 79.3 % Lymph % (Auto) 11.8 % [place] % (Auto) 7.2 % Eos % (Auto) 0.1 % Baso % (Auto) 0.1 % Neut # (Auto) 10.14 H (1.4-6.5) K/uL Lymph # (Auto) 1.51 (1.2-3.4) K/uL [place] # (Auto) 0.92 H (0.11-0.59) K/uL Eos # (Auto) 0.01 (0-0.5) K/uL Baso # (Auto) 0.01 (0-0.2) K/uL Immature Gran # (Auto) 0.19 H (0.00-0.02) K/uL Toxic Vacuolation ESR 32 H (0-14) mm/hr PT (9.0-12.0) Seconds INR (0.9-1.1) APTT (21.0-31.0) Seconds PTT Ratio Sample Site POC pH (7.35-7.45) POC pCO2 (35-46) mmHg POC pO2 (80-95) mmHg POC HCO3 (19-24) errol/L POC Base Excess (-9-1.8) errol/L POC ABG O2 Sat (90-95) % Yves Test VBG pH (7.36-7.41) VBG pCO2 (38-50) mmHg VBG pO2 mmHg VBG HCO3 mmol/L VBG O2 Saturation % VBG Base Excess mEq/L Barometric Pressure mm/Hg O2 Delivery Device POC Sodium (135-144) mmol/L Sodium (136-145) mmol/L POC Potassium (3.3-5.0) mmol/L Potassium (3.5-5.1) mmol/L POC Chloride (101-112) mmol/L Chloride (98-107) mmol/L Carbon Dioxide (21-32) mmol/L POC Total CO2 (24-31) mmol/L Anion Gap (3-11) POC Anion Gap (16-25) mmol/L POC BUN (7-18) mg/dl BUN (7-18) mg/dl Creatinine (0.6-1.4) mg/dl POC Creatinine (0.6-1.3) mg/dl Est Cr Clr Drug Dosing ml/min Est GFR ( Amer) Est GFR (Non-Af Amer) BUN/Creatinine Ratio (10-20) Glucose (70-99) mg/dl POC Glucose (70-99) mg/dl POC Glucose (other) (70-99) mg/dl Estimat Average Glucose mg/dl Hemoglobin A1c (4.5-5.6) % Lactate (0.4-2.0) mmol/L Calcium (8.5-10.1) mg/dl POC Ioniz Calcium Cooper (1.12-1.32) mmol/l Magnesium (1.8-2.4) mg/dl Ferritin (8-388) ng/ml Total Bilirubin (0.2-1) mg/dl AST (15-37) U/L ALT (12-78) U/L Alkaline Phosphatase (45-117) U/L Lactate Dehydrogenase (87-241) U/L Total Creatine Kinase (39-308) U/L CK-MB (CK-2) (0.5-3.6) ng/ml CK/CKMB % Calc Troponin I (0-0.045) ng/ml C-Reactive Protein (0-0.29) mg/dl Total Protein (6.4-8.2) gm/dl Albumin (3.4-5.0) gm/dl Globulin (2.5-4.0) gm/dl Albumin/Globulin Ratio (0.9-2) Procalcitonin (0-0.5) ng/ml Urine Color Urine Appearance (Clear) Urine pH (4.5-7.5) Ur Specific Sebastian (1.000-1.030) Urine Protein (Negative) Urine Glucose (UA) (Negative) Urine Ketones (Negative) Urine Blood (Negative) Urine Nitrite (Negative) Urine Bilirubin (Negative) Urine Urobilinogen (Negative) Ur Leukocyte Esterase (Negative) Urine WBC (Auto) (0-5) /hpf Urine RBC (Auto) (0-4) /hpf U Hyaline Cast (Auto) (0-5) /lpf U Epithel Cells (Auto) (0-5) /lpf Urine Bacteria (Auto) (Negative) Urine Yeast Nasal Screen MRSA (PCR) (Negative) Random Vancomycin mcg/ml Valproic Acid (50-100) mcg/ml Levetiracetam Adenovirus (PCR) (NotDetected) B. pertussis DNA (PCR) (NotDetected) B.parapertussis DNA PCR (NotDetected) C. pneumoniae DNA (PCR) (NotDetected) Coronavirus OC43 (PCR) (NotDetected) Coronavirus HKU1 (PCR) (NotDetected) Coronavirus 229E (PCR) (NotDetected) COVID-19 PCR (Negative) Coronavirus NL63 (PCR) (NotDetected) Human Metapneumovir PCR (NotDetected) Influenza Type A (PCR) (NotDetected) Influenza Type B (PCR) (NotDetected) Urine Legionella Ag M. 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 This is a life/limb threatening event. This includes time spent evaluating patient, direct bedside care, chart review, placing orders, interpretation of diagnostic studies, discussion with consultants, patient, and/or family members regarding treatment decisions, as well as other required patient management activities. This time is exclusive of all separately billable procedures, and teaching time and separate from and in addition to any other critical care service time.
--- NOTE | 2020-01-05 12:20 | Procedure Note ---
Procedure Note Date of Service January 05, 2020 Procedure Date: Noted above Procedure: Endotracheal intubation Pre-procedure Diagnosis: Acute hypoxic respiratory failure Post-procedure Diagnosis: same as above Prior to Procedure: Informed Consent: emergent Attending Staff: Sarah Douglas DO The identity of the patient was confirmed and a bedside time out was performed. Description of Procedure: Patient was evaluated and required intubation for impending respiratory failure. The patient was prepared in the usual fashion. A 3 MAC laryngoscope was used. A 8 mm inner diameter endotrachial tube was placed endotracheally to 21 cm at the gum ridge. A grade 1 view was obtained. The endotracheal tube was noted to pass through the vocal cords. Chest rise was bilateral. Bilateral breath sounds were heard without air sounds in the abdomen. Mist was noted in the endotracheal tube. End-tidal CO2 measurement was positive. Chest x-ray shows proper endotracheal tube placement. Complications: None Findings: Not applicable Specimens: Not applicable Estimated blood loss: Zero Coding CPT Codes Resuscitation - Resuscitation: 20603 Endotracheal Intubation, emergency ([id number]) [facility] [place] Procedure Codes (Charges) Resuscitation Resuscitation: 55263 Endotracheal Intubation, emergency
--- NOTE | 2020-01-05 12:21 | Procedure Note ---
Procedure Note: Bronchoscopy Procedure Procedure date: January 05, 2020 Procedure: fiberoptic bronchoscopy Pre-procedure indication: Acute hypoxic respiratory failure, presumptive pneumonia Post-procedure Diagnosis: same as above Prior to Procedure: Informed Consent: emergent consent implied Attending Staff: Sarah Douglas DO Resident/APC: Not applicable Skin Prep: Not applicable Anesthesia: Continuous infusion The identity of the patient was confirmed and a bedside time out was performed. Description of Procedure: Fiberoptic bronchoscopy was performed via endotracheal tube. Bronchioalveolar lavage right middle lobe was performed. Findings included: Purulence emanating from the right main bronchus extending into the right middle lobe and small amount of white purulent secretions in the right lower lobe left lobe appeared largely unremarkable. Complications: None Specimens: Bronchial washings sent for culture and Gram stain, fungal elements, AFB stain and culture, cell count differential. Estimated blood loss: Zero
--- NOTE | 2020-01-05 12:26 | Psychiatric Consultation ---
Date of Consultation January 05, 2020 Impression / Recommendations Impression Dr. Grazyna Stallworth was directly involved in review and discussion of the patient's case and participated in medical decision making regarding treatment recommendations. RECOMMENDATIONS: 01/04 - Psychiatric consultation requested to evaluate antipsychotic medications in the setting of AMS/lethargy. Primary team already recommended holding quetiapine and offering haloperidol only as needed, which seems appropriate. Agree with these recommendations until mental status improves. While antipsychotic medications may be contributing to sedation in the setting of medical decompensation, it is not likely they are the primary cause for his altered presentation. Lethargy is more likely attributable to delirium (multifactorial - sepsis, UTI, pneumonia, hypernatremia, etc) and hypoxia among other possible contributing medical factors. - Agree with holding venlafaxine if patient is unable to tolerate PO intake, but would suggest resuming venlafaxine as soon as patient is able to tolerate PO intake in order to avoid symptoms related to discontinuation syndrome. - Recommend standard behavioral techniques in accordance with delirium protocol - patient should be frequently reoriented to person, place, time, event, and intervention to be performed. Pt should be permitted to utilize corrective lenses and assistive hearing devices when appropriate. Permit use of familiar comfort items when appropriate as well. Keep patient awake and active during the day, with light on in room. Conversely, dark room should be maintained at night with sleep being encouraged. Use of prn medications should be limited to behavioral concerns that threaten the safety of the patient or staff, in order to prevent worsening of confusion and excessive sedation - Will continue to follow and provide additional recommendations as indicated. Psych History Identifying Data 69-year-old male admitted medically on 01/04/2020 after presenting to the ED from [facility] with lethargy and hypoxia. Psychiatric consultation requested for medication recommendations, with concern antipsychotic medications may be contributing to lethargy. Chief Complaint Pt on BiPAP, does not offer verbal response when greeted by this provider. History of Present Illness Fede Hinojosa is a 69-year-old male admitted medically on 01/04/2020 after presenting to the ED from [facility], where patient was observed to be lethargic and found to be hypoxic. Upon further medical work-up, patient is now being treated for UTI, pneumonia, sepsis, CORY, hypernatremia, and hypoxia. Pt reportedly has a diagnoses of dementia as well, with reported episodes of confusion and agitation. Pt does have a psychiatric history of schizoaffective disorder, and psychiatric consultation was requested to evaluate if antipsychotic medications may be contributing to lethargy. Medical documentation reviewed, aware of primary team's preliminary recommendation to hold antipsychotic medications, offering haloperidol as a prn if necessary. Venlafaxine was held as patient was not initially tolerating PO intake. Unfortunately, patient is still unable to provide history of his own. This provider did meet with the patient in his room; however, patient remained rather sedated and was wearing a BiPAP at time of assessment. Pt did briefly open his eyes to look at this provider. He did not appear to be in distress. Past Psychiatric History Current Psychiatric Diagnosis: Schizoaffective disorder Allergies Allergy/AdvReac Type Severity Reaction Status Date / Time No Known Allergies Allergy Unverified 11/26/18 13:11 Home Medications Home Medications Medication Instructions Recorded Confirmed Type acetaminophen 650 mg PO Q8H PRN MDD 3G 11/26/18 01/04/20 History allopurinol 200 mg PO QAM 11/26/18 01/04/20 History bisacodyl [Dulcolax (bisacodyl)] 10 mg AR DAILY PRN 11/26/18 01/04/20 History calcium carbonate-vitamin D3 1 tab PO QAM 11/26/18 01/04/20 History [Calcium 500 + D] divalproex 250 mg PO TID 11/26/18 01/04/20 History gabapentin 600 mg PO TID 11/26/18 01/04/20 History haloperidol decanoate [Haldol 25 mg IM MONTHLY 11/26/18 01/04/20 History Decanoate] hydrocodone-acetaminophen 1 tab PO Q6H 11/26/18 01/04/20 History insulin glargine [Lantus Solostar 10 unit SUBCUT QAM 11/26/18 01/04/20 History U-100 Insulin] levetiracetam [Keppra] 750 mg PO BID 11/26/18 01/04/20 History lidocaine 1 applic TOPICAL QAM 11/26/18 01/04/20 History omeprazole 20 mg PO QAM 11/26/18 01/04/20 History quetiapine [Seroquel] 100 mg PO BID 11/26/18 01/04/20 History sennosides-docusate sodium 2 tab PO QAM 11/26/18 01/04/20 History [Senna-S] simvastatin [Zocor] 10 mg PO HS 11/26/18 01/04/20 History amoxicillin-pot clavulanate 1 tab PO BID 01/04/20 01/04/20 History cholecalciferol (vitamin D3) 125 mcg PO DAILY 01/04/20 01/04/20 History fentanyl 1 patch TRANSDERMAL Q72H 01/04/20 01/04/20 History haloperidol lactate 2 mg PO BID 01/04/20 01/04/20 History loperamide 2 mg PO Q8H PRN 01/04/20 01/04/20 History meloxicam 15 mg PO QAM 01/04/20 01/04/20 History venlafaxine 75 mg PO HS 01/04/20 01/04/20 History venlafaxine 150 mg PO QAM 01/04/20 01/04/20 History vitamin B complex-folic acid 1 cap PO QAM 01/04/20 01/04/20 History Patient History Medical History Alzheimer disease Chronic gout Chronic prescription opiate use Dementia (Chronic) Diabetes (Chronic) Gastrointestinal hemorrhage GERD (gastroesophageal reflux disease) (Chronic) Hypertension (Acute) Muscle weakness Peripheral vascular disease Schizoaffective disorder, chronic condition (Chronic) Seizure disorder Stroke (Resolved) Urinary tract infection Social History Communication Ability: Unable Current Living Situation: Shelter Feels Safe at Home: Yes Smoking Status: Unknown if ever smoked Physical Exam Psychiatric: Orientation: + not alert (appearing lethargic, but opens eyes spontaneously ) Motor Behavior: no abnormal motor movements Affect: + blunted affect (appearing sedated) Vital Signs (Past 24 Hours): Last Vital Signs Temp 37.0 C 01/05/20 09:16 Pulse 90 01/05/20 11:09 Resp 26 H 01/05/20 11:09 BP 162/84 H 01/05/20 09:16 Pulse Ox 95 01/05/20 11:09 Review of Systems Patient unable to participate in conversation at this time due to AMS/lethargy and BiPAP placement. Results & Data (PSY) Medications Administered Albuterol (Duoneb) 3 ml NEB QIDR [facility] Stop: 02/04/20 06:59 Last Admin: 01/05/20 11:06 Dose: 3 ml Documented by: [id number] Admin: 01/05/20 07:13 Dose: 3 ml Documented by: [id number] Admin: 01/04/20 20:25 Dose: 3 ml Documented by: [id number] Levofloxacin/Dextrose (Levaquin/D5w) 750 mg in 150 mls @ 100 mls/hr IV Q24H [facility] Stop: 01/11/20 16:44 Last Infusion: 01/04/20 18:32 Dose: 0 mls/hr Documented by: [id number] Admin: 01/04/20 17:01 Dose: 100 mls/hr Documented by: [id number] Levetiracetam 750 mg/ Sodium (Chloride) 107.5 mls @ 440 mls/hr IV BID [facility] Stop: 02/03/20 20:59 Last Infusion: 01/05/20 09:09 Dose: 0 mls/hr Documented by: [id number] Admin: 01/05/20 08:39 Dose: 440 mls/hr Documented by: [id number] Infusion: 01/04/20 21:46 Dose: 0 mls/hr Documented by: [id number] Admin: 01/04/20 21:21 Dose: 440 mls/hr Documented by: [id number] Valproic Acid 250 mg/ Dextrose 52.5 mls @ 55 mls/hr IV TID [facility] Stop: 02/03/20 20:59 Last Infusion: 01/05/20 09:47 Dose: 0 mls/hr Documented by: [id number] Admin: 01/05/20 08:39 Dose: 55 mls/hr Documented by: [id number] Infusion: 01/04/20 23:05 Dose: 0 mls/hr Documented by: [id number] Admin: 01/04/20 21:47 Dose: 55 mls/hr Documented by: [id number] Cefepime HCl 2,000 mg/ Syringe 20 mls @ 5.5 mls/min IV Q12H [facility]; Protocol Stop: 01/12/20 04:59 Last Admin: 01/05/20 06:03 Dose: 5.5 mls/min Documented by: [id number] Dextrose (D5w) 1,000 mls @ 150 mls/hr IV .Q6H40M [facility] Stop: 02/04/20 07:44 Last Admin: 01/05/20 08:37 Dose: 125 mls/hr Documented by: [id number] Famotidine 20 mg/ Syringe 5 mls @ 2.5 mls/min IV QAM [facility] Stop: 02/04/20 08:59 Last Admin: 01/05/20 09:26 Dose: 2.5 mls/min Documented by: [id number] Insulin Aspart (Novolog Flexpen) 0 units SC Q4 [facility] Stop: 02/03/20 20:44 Last Admin: 01/05/20 08:38 Dose: Not Given Documented by: [id number] Cosigned by: [id number] Admin: 01/05/20 04:28 Dose: Not Given Documented by: [id number] Cosigned by: [id number] Admin: 01/05/20 00:08 Dose: Not Given Documented by: [id number] Cosigned by: [id number] Admin: 01/04/20 20:51 Dose: Not Given Documented by: [id number] Cosigned by: [id number] Coding Level of Care Code 93013 [facility] Intl Hosp Care Lvl 1
--- NOTE | 2020-01-05 12:37 | Pharmacy Report ---
Pharmacy Abx Dose Short Note - Date of Service January 05, 2020 - Assessment & Plan Assessment 69 year old M receiving vancomycin, cefepime, and levofloxacin for treatment of sepsis secondary to pulm vs UTI. Patient growing gram negative bacilli in urine and blood cultures. MRSA nasal swab was uninterruptible. This was re-ordered and pending collection. Scr improved this morning, however given respiratory event with subsequent intubation and ICU transfer, unknown if this will improve again or worsen. Will err on the conservative side and redose this morning and get another random level ~18 hours later. Will look for possible vanc de-escalation pending speciation and final blood and urine cxs. Day # 2 of antimicrobial therapy. Plan Vancomycin * Random level is 14.7 mcg/mL * Redose with 1250 mg IV X 1 this morning * Random level ordered for: 01/06/20 with AM labs * T1/2 ranging from ~18-24 hours over the past 24 hours Cefepime 2g IV q12 appropriate for renal function Levofloxacin * Change to 750mg IV q48 hours for renal function Pharmacy will continue to follow and will adjust dose/frequency as necessary. Thank you.
--- NOTE | 2020-01-05 13:00 | XRay Report ---
XR chest 1V portable CLINICAL HISTORY: lines and NG placement COMPARISON STUDY: 01/05/2020 10:16 AM FINDINGS: Endotracheal tube placed 3.5 cm above the miguel. Nasogastric tube within the mid stomach. Developing left basilar consolidative change. Some progressive infiltrative change right hemithorax. IMPRESSION: 1. Endotracheal tube 3.5 cm above the miguel. 2. Nasogastric tube mid stomach. 3. Mildly progressive consolidative and/or effusion change left lung base with slightly progressive p arenchymal infiltrates. ACT 112: Negative or not required by law. The above report was generated using voice recognition software. It may contain grammatical, syntax or spelling errors. Electronically signed by: Soy Hsieh M.D. 01/05/2020 12:58 PM
[2020-01-05 13:01] LABS: Base Excess VBG -0.4 mEq/L; Oxygen Saturation VBG 96.7 %; pH VBG 7.39 (7.36-7.41)
[2020-01-05 13:03] LABS: BUN Creatinine Ratio 30.5 (10-20); Creatinine Clr Calc Pharmacy 41.5 ml/min; Est GFR (African American) 50.3; Est GFR (Non-African American) 43.4; Potassium 3.9 mmol/L (3.5-5.1)
[2020-01-05] MEDS ORDERED: LORazepam 2 MG/4 ML VIAL IV STA ×3 (13:05→13:08)
[2020-01-05] MEDS ORDERED: fentaNYL citrate 100 MCG/2 ML VIAL IV STA ×2 (13:06→13:07)
[2020-01-05] MEDS ORDERED: VECURONIUM BROMIDE 10 MG VIAL IV STA (13:09)
[2020-01-05] MEDS ORDERED: ROCURONIUM BROMIDE 10 MG/ML 5 ML VIAL IV STA ×2 (13:11)
[2020-01-05] MEDS ORDERED: MIDAZOLAM HCL 5 MG/ML VIAL IV STA (13:14)
[2020-01-05] MEDS ORDERED: RAPID SEQUENCE INDUCTION BAG PRN (13:19)
[2020-01-05] MEDS: HEPARIN SOD 5,000 UNIT/0.5 ML VIAL SQ SCH ×2 (14:17→21:15)
[2020-01-05] MEDS: propofoL 1,000 MG/100 ML VIAL IV SCH ×2 (14:18→19:51)
[2020-01-05 14:29] LABS: Eosinophil Body Fluid Man 0 %; Fluid Mono/Macrophage 3 %; Lymphocyte Body Fluid Man 3 %; Neutrophil Body Fluid Man 94 %
[2020-01-05 15:00] LABS: Urine Potassium 78.7 mmol/L
[2020-01-05] MEDS ORDERED: PEPTAMEN INTENSE VHP 1.0 CAL 1,000 ML BAG OG PRN (16:00)
[2020-01-05] MEDS: SODIUM CHLOR 0.45% + 20MEQ KCL 20 MEQ/1,000 ML BAG IV SCH (16:16)
[2020-01-05] MEDS ORDERED: MIDAZOLAM HCL 5 MG/ML VIAL IV ONE (16:25)
[2020-01-05] MEDS ORDERED: ROCURONIUM BROMIDE 10 MG/ML 5 ML VIAL IV ONE (16:25)
[2020-01-05] MEDS ORDERED: LORazepam 2 MG/ML VIAL IV ONE (16:25)
[2020-01-05] MEDS ORDERED: fentaNYL citrate 100 MCG/2 ML CARP IV ONE (16:25)
[2020-01-05] MEDS: THIAMINE HCL 500 MG in SODIUM CHLORIDE 0.9% 50 ML IV SCH (16:29)
[2020-01-05] MEDS: fentaNYL DRIP 1,250 MCG/250 ML BAG IV SCH (16:30)
[2020-01-05 16:58] LABS: BUN Creatinine Ratio 34.3 (10-20); Calcium 8.8 mg/dl (8.5-10.1); Creatinine Clr Calc Pharmacy 49.3 ml/min; Est GFR (African American) 61.9; Est GFR (Non-African American) 53.4; Potassium 4.2 mmol/L (3.5-5.1)
[2020-01-05] MEDS ORDERED: INSULIN ASPART 100 UNITS/ML 3 ML PEN SC SCH (20:45)
[2020-01-05 20:56] LABS: BUN Creatinine Ratio 34.3 (10-20); Est GFR (African American) 66.1
--- NOTE | 2020-01-05 21:33 | XCELERA ---
[id number]
--- NOTE | 2020-01-06 00:03 | Electrocardiogram Report ---
Test Reason : Blood Pressure : / mmHG Vent. Rate : 112 BPM Atrial Rate : 112 BPM P-R Int : 142 ms QRS Dur : 092 ms QT Int : 362 ms P-R-T Axes : 038 -60 066 degrees QTc Int : 494 ms Sinus tachycardia Left axis deviation Moderate voltage criteria for LVH, may be normal variant Inferior infarct Nonspecific T wave abnormality Abnormal ECG When compared with ECG of 26-NOV-2018 13:11, Vent. rate has increased BY 46 BPM Nonspecific T wave abnormality no longer evident in Anterolateral leads T wave inversion more evident in Lateral leads Confirmed by Surjit Almanzar ([id number]) on 01/06/2020 12:03:09 AM Referred By: [facility] Confirmed By:Surjit Almanzar
[2020-01-06] MEDS: INSULIN ASPART 100 UNITS/ML 3 ML PEN SC SCH ×6 (00:06→20:47)
[2020-01-06] MEDS: THIAMINE HCL 500 MG in SODIUM CHLORIDE 0.9% 50 ML IV SCH ×2 (00:06→07:58)
[2020-01-06] MEDS: CEFEPIME 2,000 MG in SYRINGE 7.5 ML IV SCH ×2 (04:27→19:15)
[2020-01-06] MEDS: SODIUM CHLOR 0.45% + 20MEQ KCL 20 MEQ/1,000 ML BAG IV SCH ×2 (04:27→17:23)
[2020-01-06 04:54] LABS: Basophils # (auto) 0.02 K/uL (0-0.2); Basophils % (auto) 0.1 %; Hematocrit (blood only) 39.3 % (42-52); Hemoglobin 12.6 g/dL (14.0-18.0); Immature Granulocytes # (auto) 0.11 K/uL (0.00-0.02); Immature Granulocytes % (auto) 0.7 %; Lymphocytes # (auto) 1.47 K/uL (1.2-3.4); Lymphocytes % (auto) 9.9 %; Mean Corpuscular Hemoglobin 32.1 pg (25-34); Mean Corpuscular Hgb Conc 32.1 g/dL (32-36); Mean Corpuscular Volume 100.3 fL (80-100); Mean Platelet Volume 11.7 fL (7.4-10.4); Monocytes # (auto) 0.75 K/uL (0.11-0.59); Neutrophils # (auto) 12.53 K/uL (1.4-6.5); Neutrophils % (auto) 84.3 %; Platelet Count 221 K/uL (130-400); RDW Coefficient of Variation 14.2 % (11.5-14.5); RDW Standard Deviation 52.1 fL (36.4-46.3); Red Blood Count 3.92 M/uL (4.7-6.1); White Blood Count 14.88 K/uL (4.8-10.8)
[2020-01-06] MEDS: HEPARIN SOD 5,000 UNIT/0.5 ML VIAL SQ SCH ×3 (05:18→20:49)
[2020-01-06 05:44] LABS: BUN Creatinine Ratio 36.9 (10-20); Calcium 9.3 mg/dl (8.5-10.1); Creatinine Clr Calc Pharmacy 53.3 ml/min; Est GFR (Non-African American) 58.7; Potassium 3.8 mmol/L (3.5-5.1)
[2020-01-06 05:47] LABS: Albumin Globulin Ratio 0.5 (0.9-2); Bilirubin,Total 0.5 mg/dl (0.2-1); Globulin 4.3 gm/dl (2.5-4.0); Total Protein 6.3 gm/dl (6.4-8.2)
[2020-01-06 05:53] LABS: iSTAT Allen Test Pass; iSTAT Arterial Blood Gas HCO3 24 meg/L (19-24); iSTAT Arterial Blood Gas pCO2 35 mmHg (35-46); iSTAT Arterial Blood Gas pH 7.44 (7.35-7.45); iSTAT Arterial Blood Gas pO2 73 mmHg (80-95); iSTAT Carbon Dioxide 25 mmol/L (24-31); iSTAT Site R Radial
[2020-01-06] MEDS ORDERED: POTASSIUM CHLORIDE 20 MEQ/15 ML UDC PO ONE (06:15)
[2020-01-06] MEDS ORDERED: VANCOMYCIN HCL 1,250 MG in SODIUM CHLORIDE 0.9% 250 ML IV ONE (06:30)
[2020-01-06] MEDS ORDERED: VANCOMYCIN HCL 1,000 MG in SODIUM CHLORIDE 0.9% 250 ML IV ONE (06:30)
[2020-01-06] MEDS: ALBUT/IPRATROP 3MG/0.5MG NEB 3 ML VIAL NEB SCH ×4 (06:50→19:01)
--- NOTE | 2020-01-06 07:22 | XRay Report ---
XR chest 1V portable CLINICAL HISTORY: Respiratory failure COMPARISON STUDY: 01/05/2020 FINDINGS: There is an endotracheal tube positioned 33 mm above the miguel. There is a nasogastric tub e which passes into the stomach. The cardiac and mediastinal contours remain stable. There are persis tent bilateral pulmonary airspace opacities. This could represent bilateral edema, or a bilateral inf ectious/inflammatory process. A small left pleural effusion is suspected. IMPRESSION: 1. Persistent bilateral pulmonary airspace opacities, pulmonary edema versus a multifocal pneumonitis . 2. Small left pleural effusion ACT 112: Negative or not required by law. Electronically signed by: Carmelo Blankenship M.D. 01/06/2020 7:21 AM
--- NOTE | 2020-01-06 07:37 | Hospitalist Progress Note ---
Date of Service January 06, 2020 Assessment & Plan (1) Sepsis associated hypotension: gram negatives in blood and urine growing quinalone restant E Coli Hypotension responded to IV fluids antibiotics streamlined to Cefepime (2) Acute respiratory failure with hypoxia: Pt intubated and ventilated, managed by icu team (3) Pneumonia: Elevated procalcitonin and bilateral opacities on chest x-ray Continue broad-spectrum antibiotics as above. Aspiration vs. Health-care acquired (in [place] [facility] setting). urine cultures supports urinary source, but CXR also persists with basilar changes (4) Urinary tract infection: Will continue menjivar catheter at present due need to measure UO with sepsis. (5) Acute kidney injury: Suspected prerenal due to acute infection, dehydration (poor oral intake) and meloxicam use. Holding meloxicam. Continue IV fluid replacement as below. improving hypernatremia. (6) Hypernatremia: (7) Altered mental state: metabolic encephalopathy CT head negative for acute intracranial abnormality EEG unremarkable. neurology feels may stop Keppra and eval for clinical changes, no immediate need for antiepileptics anti-psychotics and opiates but will start at lower dose and be guided by psychiatry evaluation as above (8) Schizoaffective disorder, chronic condition: previously taking both Seroquel 100 mg twice daily (although notably on Seroquel 150mg TID in 2015) and haloperidol 2mg PO BID and 25 mg IM monthly. Consult psychiatry did not feel that delirium is related to his psychotropic medications. Recommending delirium protocol. Agreeing with holding venlafaxine but reinstituting it as soon as possible. (9) Psychosis: now that he is intubated. Unable to determine delusion or hallucinations given dementia and current cognitive state. Haloperidol as needed (10) Dementia: Noted history of stroke with old left cerebral infarct. Although Alzheimer's noted on prior problem list I suspect his prior stroke and medication are likely contributory. (11) Coronary artery disease: Unclear history of this. No prior stents or CABG Echocardiogram performed 01/03 shows normal EF, severe aortic stenosis. (12) Diabetes: HbA1C 6.6 Continue to hold out patient Lantus dosing while NPO Continue Novolog correction factor for now. (13) Hyperlipidemia: Hold simvastatin while NPO (14) GERD (gastroesophageal reflux disease): Switch omeprazole PO 20mg QAM to famotidine 20mg IV daily while NPO (15) Chronic prescription opiate use: Fentanyl patch removed on admission On chronic opiates for right foot and right hand pain. Also taking Meloxicam 15mg QAM and [place] Q6H OFE as per prior documentation Possible overdose causing lethargy on admission in setting of CORY (16) Peripheral vascular disease: Noted history of this. Not on antiplatelets are noted above. Holding simvastatin while NPO and lethargic. (17) Chronic gout: Will hold allopurinol while unable to take PO meds (18) Seizure disorder: Valproic acid and Keppra levels ordered (although notably these have previously been normal or low). Continue IV valproic acid and stop Keppra per neurology recommendations EEG - non-seizure activity noted despite head tremor during EEG. Very mild generalized slowing represents a very mild encephalopathy. 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 Suspect from prior stroke in setting of chronic anti-psychotic use. Consult neurology - discussed with Dr Landa and recommend patient is seen tomorrow after another day of medical optimization and psychiatry review of his outpatient medication regimen. (21) Depression: Continue venlafaxine once patient able to take PO meds (22) DVT prophylaxis: Heparin 5000 units SQ Q8H Admission and Anticipated Discharge Date Admission Date: January 04, 2020 Subjective Patient is intubated and onpropofol. His eyes are open and he blinks occasionally. He does not track or follow commands. Nursing reports no seizures over the last 24 hours. Patient has E coli growing from his blood and urine Review of Systems Review of Systems: Unobtainable due to endotracheal tube Physical Exam Physical Exam: The patient appeared comfortable while sedated on the ventilatior for gram negative sepsis Vital signs as documented. Lungs are coarse Cardiac exam, Rhythm is regular.. No murmurs, rubs or gallops. Abdominal exam reveals normal bowel sounds, soft Extremities are nonedematous and both pedal pulses are normal. Neurologic exam sedate on propofol Skin is without bruises or rashes Results & Data Results & Data ([facility]) Vital Signs (Past 12 Hours) Vital Signs Temp Pulse Resp BP Pulse Ox 01/06/20 06:00 98.6 F 101 H 100 01/06/20 05:41 100 H 24 99 01/06/20 05:36 99 H 164/101 H 95 01/06/20 05:00 93 H 97 01/06/20 04:27 97 H 148/101 H 98 01/06/20 04:00 97 H 98 01/06/20 03:00 99 H 97 01/06/20 02:40 95 H 117/73 97 01/06/20 02:32 96 H 22 97 01/06/20 02:00 99 H 97 01/06/20 01:40 101 H 130/82 97 01/06/20 01:39 99 H 126/85 97 01/06/20 01:00 101 H 97 01/06/20 00:00 102 H 96 01/05/20 23:40 99 H 139/87 98 01/05/20 23:38 104 H 20 99 01/05/20 23:00 102 H 96 01/05/20 22:40 103 H 130/82 96 01/05/20 22:00 105 H 97 01/05/20 21:40 105 H 125/80 96 01/05/20 21:03 106 H 129/82 95 01/05/20 21:00 108 H 95 01/05/20 20:21 107 H 16 97 01/05/20 20:00 108 H 97 01/05/20 19:47 106 H 136/93 96 PG Care Time/CCT Total # of Minutes Spent Total Time Spent with Patient: Total time spent is greater than 50% in coordination of care (as documented) at patient's floor/unit and/or counseling patient: Coding Level of Care Code 45552 Subseq Hosp Care Lvl 3 Diagnoses Sepsis associated hypotension A41.9; I95.9 Acute respiratory failure with hypoxia J96.01 Pneumonia J18.9 Urinary tract infection N39.0 Acute kidney injury N17.9 Hypernatremia E87.0 Altered mental state R41.82 Schizoaffective disorder, chronic condition F25.8 Psychosis F29 Dementia F03.90 Coronary artery disease I25.10 Diabetes E11.9 Hyperlipidemia E78.5 GERD (gastroesophageal reflux disease) K21.9 Chronic prescription opiate use Z79.891 Peripheral vascular disease I73.9 Chronic gout [id number] Seizure disorder G40.909 Muscle weakness M62.81 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
[2020-01-06] MEDS: levETIRAcetam 750 MG in 0.9 % SODIUM CHLORIDE 100 ML IV SCH (07:57)
[2020-01-06] MEDS: FAMOTIDINE 20 MG in SYRINGE 3 ML IV SCH ×2 (07:57→20:51)
[2020-01-06] MEDS: VALPROATE SOD 250 MG in DEXTROSE 5% 50 ML IV SCH ×3 (07:58→20:50)
[2020-01-06] MEDS: propofoL 1,000 MG/100 ML VIAL IV SCH (07:59)
[2020-01-06] MEDS: fentaNYL DRIP 1,250 MCG/250 ML BAG IV SCH (09:30)
--- NOTE | 2020-01-06 10:01 | Critical Care Progress Note ---
Date of Service January 06, 2020 Assessment & Plan (1) Acute respiratory failure with hypoxia: Reason Critically Ill: 69-year-old male with sepsis and acute hypoxic respiratory failure PLAN: Neuro: Schizoaffective disorder Extraparametal movement disorder secondary to schizoaffective disorder treatment Dementia: Alzheimer's Chronic narcotic use -Fentanyl infusion Acute encephalopathy: Mixed Resp: Acute hypoxic respiratory failure -Intubation mechanical ventilation: Day 2 -Bronchoscopy results pending CV: Coronary artery disease Peripheral vascular disease -As evidenced by bypass grafts on KUB Fluids/Renal: Acute kidney injury: Improving Hypernatremia: Improving Hyperchloremic metabolic acidosis: Improving -Free water administration via NG tube and half NS -Peptamen at 20 mL's with 250 mL free water flush every 4 hours -Half NS with 20 M EQ's KCl at 80 mL's per hour -Every 6 hours BMP Hypermagnesemia Lactic acidosis: Improved ID: Gram-negative bacilli bacteremia Gram-negative bacilli urinary tract infection -E. coli isolated from urine in November 26, 2018, April 28, 2019: Nia quinolone resistant, May 21, 2019: Nia quinolone resistant as well as July 05, 2019: Fluoroquinolone resistant [facility] respiratory panel: Carbone negative COVID PCR negative Legionella antigen pending -Discontinue Levaquin, continue cefepime and vancomycin -Not inclined to continue doxycycline as the mycoplasma is negative and I think atypical infection is unlikely GI/Nutrition: Trickle Peptamen -Enteral access for free water administration Heme: Anemia: Megaloblastic DVT prophylaxis: Heparin 5000 twice daily Endocrine: ICU hyperglycemia protocol Hyperglycemia: Removing dextrose containing solutions Vascular access: Peripheral IVs Code Status: Full Disposition: ICU (2) Extrapyramidal and movement disorder: (3) Chronic prescription opiate use: (4) Peripheral vascular disease: (5) Seizure disorder: (6) Urinary tract infection: (7) Acute kidney injury: (8) Pneumonia: (9) Sepsis associated hypotension: (10) Hypernatremia: (11) Schizophrenia: (12) Acute encephalopathy: Admission and Anticipated Discharge Date Admission Date: January 04, 2020 Subjective No overnight events Review of Systems Review of Systems: Unobtainable due to endotracheal tube Physical Exam Physical Exam: General: Sedated Skin: Warm, dry, Head: Atraumatic Ears, nose, mouth and throat: airway obscured by endotracheal tube Cardiovascular: Normal peripheral perfusion Respiratory: no respiratory distress, coarse sounds bilaterally Gastrointestinal: Non distended Results & Data Results & Data ([facility]) Vital Signs (Past 12 Hours) Vital Signs Temp Pulse Resp BP Pulse Ox 01/06/20 09:00 96 H 99 01/06/20 08:32 96 H 165/98 H 100 01/06/20 08:30 37.8 C H 99 H 96 01/06/20 08:00 97 H 99 01/06/20 07:33 98 H 20 99 01/06/20 07:30 96 H 100 01/06/20 07:00 103 H 100 01/06/20 06:00 37 C 101 H 100 01/06/20 05:41 100 H 24 99 01/06/20 05:36 99 H 164/101 H 95 01/06/20 05:00 93 H 97 01/06/20 04:27 97 H 148/101 H 98 01/06/20 04:00 97 H 98 01/06/20 03:00 99 H 97 01/06/20 02:40 95 H 117/73 97 01/06/20 02:32 96 H 22 97 01/06/20 02:00 99 H 97 01/06/20 01:40 101 H 130/82 97 01/06/20 01:39 99 H 126/85 97 01/06/20 01:00 101 H 97 01/06/20 00:00 102 H 96 01/05/20 23:40 99 H 139/87 98 01/05/20 23:38 104 H 20 99 01/05/20 23:00 102 H 96 01/05/20 22:40 103 H 130/82 96 01/05/20 22:00 105 H 97 Coding Level of Care Code Critical Care 1st 30-74 mins Diagnoses Acute respiratory failure with hypoxia J96.01 Extrapyramidal and movement disorder G25.9 Chronic prescription opiate use Z79.891 Peripheral vascular disease I73.9 Seizure disorder G40.909 Urinary tract infection N39.0 Acute kidney injury N17.9 Pneumonia J18.9 Sepsis associated hypotension A41.9; I95.9 Hypernatremia E87.0 Schizophrenia F20.9 Acute encephalopathy G93.40 Time Spent (min) 45 Comment I have personally spent 45 minutes of critical care time in the direct management of this patient. This is a life/limb threatening event. This includes time spent evaluating patient, direct bedside care, chart review, placing orders, interpretation of diagnostic studies, discussion with consultants, patient, and/or family members regarding treatment decisions, as well as other required patient management activities. This time is exclusive of all separately billable procedures, and teaching time and separate from and in addition to any other critical care service time.
--- NOTE | 2020-01-06 10:25 | Neurology Progress Note ---
Date of Service January 06, 2020 Assessment & Plan (1) Acute encephalopathy: (2) Dementia: (3) Extrapyramidal and movement disorder: (4) Seizure disorder: (5) Schizoaffective disorder, chronic condition: (6) Hypernatremia: Patient has a longstanding history of schizoaffective disorder on multiple neuroleptic medications. In addition he has a history of significant dementia. He has been bed-bound and has muscle atrophy and contractures of his right hand. He has frequent bouts of agitation and confusion. Examination on January 04 noted some cogwheel rigidity and resting tremor of the right greater than left upper extremity. This is likely extrapyramidal side effects from his neuroleptic medication use. He does have a masklike face/stare also. Today, he is intubated on low-dose propofol so his examination is not meaningful. He has decreased tone in the limbs and no tremor. He has chronic hypernatremia and history of a seizure disorder which I cannot get any details regarding. Depakote level was normal at 61, gabapentin and Keppra will help prevent seizures as well. His EEG was unremarkable for focal or seizure activity. He has had no seizures since admission and his sodium was improved to 152. Recent obtundation/encephalopathy could also be due to narcotic usage. He has renal impairment and narcotics can build up. This would cause hypotension. However, he is septic (E coli) and has tachycardia, hypotension, diaphoresis, and hypoxia. He is on 2 antibiotics. He has much less tremor today (likely due to the propofol). Recommendations: 1. Obviously, from a neurologic standpoint, I would prefer less neuroleptics so his risk of extra pyramidal disease is less. However, I understand that he needs significant treatment for his schizoaffective disorder and agitation. I will defer this to Psychiatry. 2. We could consider medication for his tremor and extra pyramidal side effects but I will hold off on this for now until he is overall condition is more stable. 3. Treating sepsis currently with antibiotics. 4. Discontinue narcotics. 5. Keppra level is pending. Keppra can make patient has irritable/agitated and I am not certain this is a necessary medication particularly for seizures. I recommend discontinuing Keppra and keeping Depakote alone. Keep Depakote level between 751. 6. Check TSH and B12. Overall, I spent a total of 40 minutes with this case including review of records, direct evaluation the patient at bedside, and discussion of the case with the RN at bedside, Dr. Schmitz at bedside, and Dr. Douglas including differential diagnosis and treatment options. Admission and Anticipated Discharge Date Admission Date: January 04, 2020 Subjective Patient is intubated and on 15 micrograms of propofol. His eyes are open and he stares straight ahead. He does not track or follow commands. He does not blink with finger confrontation. Nursing reports no seizures over the last 24 hours. He is breathing over the machine. Blood pressure is 165/98 and temperature is 37.8. CBC shows an elevated white count and some anemia. Sodium is approved 152. Patient has E coli growing from his blood and urine Results & Data ([facility]) Vital Signs (Past 12 Hours) Vital Signs Temp Pulse Resp BP Pulse Ox 01/06/20 09:00 96 H 99 01/06/20 08:32 96 H 165/98 H 100 01/06/20 08:30 37.8 C H 99 H 96 01/06/20 08:00 97 H 99 01/06/20 07:33 98 H 20 99 01/06/20 07:30 96 H 100 01/06/20 07:00 103 H 100 01/06/20 06:00 37 C 101 H 100 01/06/20 05:41 100 H 24 99 01/06/20 05:36 99 H 164/101 H 95 01/06/20 05:00 93 H 97 01/06/20 04:27 97 H 148/101 H 98 01/06/20 04:00 97 H 98 01/06/20 03:00 99 H 97 01/06/20 02:40 95 H 117/73 97 01/06/20 02:32 96 H 22 97 01/06/20 02:00 99 H 97 01/06/20 01:40 101 H 130/82 97 01/06/20 01:39 99 H 126/85 97 01/06/20 01:00 101 H 97 01/06/20 00:00 102 H 96 01/05/20 23:40 99 H 139/87 98 01/05/20 23:38 104 H 20 99 01/05/20 23:00 102 H 96 01/05/20 22:40 103 H 130/82 96 Exam (Neuro) Physical Exam: His eyes are open and he is staring. He has no blink to confrontation and does not track. He does not respond to voice, shout, or shake. He has pupils which are 3 millimeters bilaterally and reactive and he has decreased tone in the limbs with no tremor. He is on propofol. He is breathing over the ventilator. PG Care Time/CCT Total # of Minutes Spent Total Time Spent with Patient: Total time spent is greater than 50% in coordination of care (as documented) at patient's floor/unit and/or counseling patient: Coding Level of Care Code 19082 Subseq Hosp Care Lvl 3 Diagnoses Acute encephalopathy G93.40 Dementia F03.90 Extrapyramidal and movement disorder G25.9 Seizure disorder G40.909 Schizoaffective disorder, chronic condition F25.8 Hypernatremia E87.0 Time Spent (min) 40
[2020-01-06 10:44] LABS: Calcium 9.1 mg/dl (8.5-10.1); Creatinine Clr Calc Pharmacy 55.1 ml/min; Est GFR (African American) 70.8; Est GFR (Non-African American) 61.1; Potassium 3.9 mmol/L (3.5-5.1)
[2020-01-06] MEDS ORDERED: INSULIN GLARGINE SOLOSTAR 100 UNITS/ML 3 ML PEN SC ONE ×2 (11:00→12:00)
--- NOTE | 2020-01-06 11:53 | Palliative Care Consultation ---
Date of Consultation January 06, 2020 Assessment & Plan (1) Goals of care, counseling/discussion: This is a 69 year old male who was transferred to the [facility] from [facility] after nursing reported his SpO2 to be decreased and he was recently diagnosed with LLL infiltrates. The patient has an extensive past medical history that includes schizoaffective disorder, psychosis, dementia, cad, dm2, HLD, GERD, PVD, gout, seizure, and depression. 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 He is unable to feed himself and all of his ADL needs are anticipated and met by staff at [facility]. The patient was intubated and remains intubated at this time. He is able to open his eyes, but does not track. Per review of Neurology notes, he has not had any seizures noted since admission. An EEG was performed and no seizure activity was noted;however, mild encephalopthy was noted. He is Psychiatry was consulted. He has been on chronic opiates for right foot and hand pain. Palliative Care was consulted for a goals of care conversation. -I evaluated the patient in room 107. -The patient is intubated ETT 8.0 CMV, FiO2 0.30% Tv 450 RR 23 and PEEP 10 -The patient has Fentanyl and Propofol on board. He has a furrowed brow and does open his eyes, but does not track or follow commands. -Overall, the patient has been noted to have general decline overall over the past few months with behavioral disturbances. -Of course, these behavioral issues are unable to be assessed as he is intubated; however, it is important to start having conversations regarding overall goals of care and code status. -Currently, the patient is a Full Code; however, once extubated, we need a plan moving forward for if the family would want the patient reintubated. -I reached out and spoke with the brother, Octaviano (POA) [phone]. He expressed that he is really frustrated with the care he has been receiving at [facility]. He expressed that he is very pleased with the care at [facility]. -He lives in [place] and is willing to visit his brother to have a family meeting. I think having his brother in the hospital visually looking at his brother will provide a more clear picture of the extent of his illness. -Based on evaluation, it appears he would be a candidate for Hospice, but would need more details regarding the extent of his dementia. An additional Hospice diagnosis would be CAD as well. -Overall, it appears that the patients quality of life is poor at best. -Octaviano plans to come to the hospital tomorrow, January 06 at 2PM. Palliative Care MD and IDT aware. For now, patient remain a Full Code. -PPS: 20% (2) Acute respiratory failure with hypoxia: (3) Peripheral vascular disease: (4) Muscle weakness: (5) Schizoaffective disorder, chronic condition: (6) Dementia: (7) Schizophrenia: History of Present Illness Reason for Consultation: goals of care Requesting Physician: Dr. Patel Attending Physician: Keshav Schmitz MD History of Present Illness This is a 69 year old male who was transferred to the [facility] from [facility] after nursing reported his SpO2 to be decreased and he was recently diagnosed with LLL infiltrates. The patient has an extensive past medical history that includes schizoaffective disorder, psychosis, dementia, cad, dm2, HLD, GERD, PVD, gout, seizure, and depression. 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 He is unable to feed himself and all of his ADL needs are anticipated and met by staff at [facility]. The patient was intubated and remains intubated at this time. He is able to open his eyes, but does not track. Per review of Neurology notes, he has not had any seizures noted since admission. An EEG was performed and no seizure activity was noted;however, mild encephalopthy was noted. Psychiatry was consulted. He has been on chronic opiates for right foot and hand pain. Palliative Care was consulted for a goals of care conversation. Please see A/P for further details. Thank you for involving the palliative care team with this patient. Allergies Allergy/AdvReac Type Severity Reaction Status Date / Time No Known Allergies Allergy Unverified 11/26/18 13:11 Home Medications Home Medications Medication Instructions Recorded Confirmed Type acetaminophen 650 mg PO Q8H PRN MDD 3G 11/26/18 01/04/20 History allopurinol 200 mg PO QAM 11/26/18 01/04/20 History bisacodyl [Dulcolax (bisacodyl)] 10 mg PA DAILY PRN 11/26/18 01/04/20 History calcium carbonate-vitamin D3 1 tab PO QAM 11/26/18 01/04/20 History [Calcium 500 + D] divalproex 250 mg PO TID 11/26/18 01/04/20 History gabapentin 600 mg PO TID 11/26/18 01/04/20 History haloperidol decanoate [Haldol 25 mg IM MONTHLY 11/26/18 01/04/20 History Decanoate] hydrocodone-acetaminophen 1 tab PO Q6H 11/26/18 01/04/20 History insulin glargine [Lantus Solostar 10 unit SUBCUT QA 11/26/18 01/04/20 History U-100 Insulin] levetiracetam [Keppra] 750 mg PO BID 11/26/18 01/04/20 History lidocaine 1 applic TOPICAL QAM 11/26/18 01/04/20 History omeprazole 20 mg PO QAM 11/26/18 01/04/20 History quetiapine [Seroquel] 100 mg PO BID 11/26/18 01/04/20 History sennosides-docusate sodium 2 tab PO QAM 11/26/18 01/04/20 History [Senna-S] simvastatin [Zocor] 10 mg PO HS 11/26/18 01/04/20 History amoxicillin-pot clavulanate 1 tab PO BID 01/04/20 01/04/20 History cholecalciferol (vitamin D3) 125 mcg PO DAILY 01/04/20 01/04/20 History fentanyl 1 patch TRANSDERMAL Q72H 01/04/20 01/04/20 History haloperidol lactate 2 mg PO BID 01/04/20 01/04/20 History loperamide 2 mg PO Q8H PRN 01/04/20 01/04/20 History meloxicam 15 mg PO QAM 01/04/20 01/04/20 History venlafaxine 75 mg PO HS 01/04/20 01/04/20 History venlafaxine 150 mg PO QAM 01/04/20 01/04/20 History vitamin B complex-folic acid 1 cap PO QAM 01/04/20 01/04/20 History Patient History Medical History (Updated 01/06/20 @ 11:53 by BONNIE Longoria) Alzheimer disease Chronic gout Chronic prescription opiate use Dementia (Chronic) Diabetes (Chronic) Gastrointestinal hemorrhage GERD (gastroesophageal reflux disease) (Chronic) Goals of care, counseling/discussion Hypertension (Acute) Muscle weakness Peripheral vascular disease Schizoaffective disorder, chronic condition (Chronic) Seizure disorder Stroke (Resolved) Urinary tract infection Social History Communication Ability: Unable Current Living Situation: Alf Feels Safe at Home: Yes Smoking Status: Unknown if ever smoked Review of Systems Review of Systems: Unobtainable due to endotracheal tube Physical Exam Constitutional: well developed and + ill appearing Respiratory: intubated: ETT 8.0 CMV FiO2 0.30% Tv 450 RR 23 PEEP 10 Cardiovascular: RRR, no murmur, no edema Gastrointestinal (Abdomen): normal bowel sounds, soft, nontender, no hepatosplenomegaly left nare coresafe with tube feedings Skin: no rashes, warm and dry Trauma: no contusion Psychiatric: Orientation: + guarded (furrowed brow ) Genitourinary: indwelling menjivar catheter, dark yellow Results & Data Vital Signs (Past 12 Hours) Vital Signs Temp Pulse Resp BP Pulse Ox 01/06/20 11:30 37.2 C 88 99 01/06/20 11:21 94 H 19 98 01/06/20 11:18 89 148/91 H 98 01/06/20 11:00 95 H 99 01/06/20 10:30 94 H 99 01/06/20 10:00 100 H 98 01/06/20 09:30 95 H 100 01/06/20 09:00 96 H 99 01/06/20 08:32 96 H 165/98 H 100 01/06/20 08:30 37.8 C H 99 H 96 01/06/20 08:00 97 H 99 01/06/20 07:33 98 H 20 99 01/06/20 07:30 96 H 100 01/06/20 07:00 103 H 100 01/06/20 06:00 37 C 101 H 100 01/06/20 05:41 100 H 24 99 01/06/20 05:36 99 H 164/101 H 95 01/06/20 05:00 93 H 97 01/06/20 04:27 97 H 148/101 H 98 01/06/20 04:00 97 H 98 01/06/20 03:00 99 H 97 01/06/20 02:40 95 H 117/73 97 01/06/20 02:32 96 H 22 97 01/06/20 02:00 99 H 97 01/06/20 01:40 101 H 130/82 97 01/06/20 01:39 99 H 126/85 97 01/06/20 01:00 101 H 97 01/06/20 00:00 102 H 96 PG Care Time/CCT Total # of Minutes Spent Total Time Spent with Patient: Total time spent is greater than 50% in coordination of care (as documented) at patient's floor/unit and/or counseling patient: 70 Coding Level of Care Code 71939 Inpt Consult Level 3 Diagnoses Goals of care, counseling/discussion Z71.89 Acute respiratory failure with hypoxia J96.01 Peripheral vascular disease I73.9 Muscle weakness M62.81 Schizoaffective disorder, chronic condition F25.8 Dementia F03.90 Schizophrenia F20.9 Time Spent Midlevel Total time spent 70 minutes with > 50% of that time spent assessing the patient, reaching out to family and discussing with IDT
--- NOTE | 2020-01-06 13:42 | Communication Note ---
Date of Service: January 06, 2020 Collateral information from [facility]: Patient resides in dementia unit, has no roommate because he gets agitated easily and at times can be combative. Dr. Mckeon at the care home prescribes all his medications, and he has been on his current psychotropic medications for at least 1 year, with the last dose change 7 months ago. His current diagnosis is schizophrenia, also listed elsewhere in their records as schizoaffective disorder Recommendations: Continue to hold psychotropic medications until his condition improves and he is off the vent, at which point we can consider how to resume his antipsychotics. Ideally we would decrease the overall number of psychotropic medications he is on, and I discussed with Dr. Landa about this, as the Haldol Decanoate is preferential given the ease of administration and higher potency, but quetiapine may be better tolerated with respect to EPS. -He is on 3 antiepileptics, and is unclear to me if all 3 of her seizure disorder or some other indication. This may be a good opportunity to decrease some of his polypharmacy, and if Keppra could be discontinued, that may help his psychiatric symptoms over the long-term, as it can worsen mood and agitation. Depakote and gabapentin on the other hand can be helpful for psychiatric symptoms. Spoke with Dr. Landa who agreed with discontinuing Keppra. -Per Neurology, his dementia is advanced. It will likely be difficult to differentiate between schizoaffective disorder and advanced dementia symptoms. Ideally when resuming medications, we can utilize medications that will target his psychiatric disorder, seizure disorder, and dementia and limit negative impact/side effects.
[2020-01-06] MEDS: IMPACT LIQD 1.0 CAL 1,000 ML BAG NG PRN (14:05)
[2020-01-06] MEDS ORDERED: LEVOFLOXACIN/D5W 750 MG/150 ML BAG IV SCH (17:00)
[2020-01-07] MEDS: INSULIN ASPART 100 UNITS/ML 3 ML PEN SC SCH ×7 (00:13→23:56)
[2020-01-07] MEDS: propofoL 1,000 MG/100 ML VIAL IV SCH ×2 (00:14→11:47)
[2020-01-07] MEDS: CEFEPIME 2,000 MG in SYRINGE 7.5 ML IV SCH (04:17)
[2020-01-07] MEDS: SODIUM CHLOR 0.45% + 20MEQ KCL 20 MEQ/1,000 ML BAG IV SCH ×2 (04:17→17:44)
[2020-01-07 05:00] LABS: Basophils # (auto) 0.02 K/uL (0-0.2); Basophils % (auto) 0.2 %; Eosinophils # (auto) 0.05 K/uL (0-0.5); Eosinophils % (auto) 0.4 %; Hematocrit (blood only) 34.9 % (42-52); Hemoglobin 11.2 g/dL (14.0-18.0); Immature Granulocytes # (auto) 0.51 K/uL (0.00-0.02); Immature Granulocytes % (auto) 3.8 %; Lymphocytes # (auto) 1.13 K/uL (1.2-3.4); Lymphocytes % (auto) 8.5 %; Mean Corpuscular Hemoglobin 30.9 pg (25-34); Mean Corpuscular Hgb Conc 32.1 g/dL (32-36); Mean Corpuscular Volume 96.1 fL (80-100); Mean Platelet Volume 11.4 fL (7.4-10.4); Monocytes # (auto) 0.77 K/uL (0.11-0.59); Monocytes % (auto) 5.8 %; Neutrophils % (auto) 81.3 %; Nucleated RBC # (auto) 0.04 K/uL (0-0); Nucleated RBC % (auto) 0.3 %; Platelet Count 229 K/uL (130-400); RDW Coefficient of Variation 13.9 % (11.5-14.5); RDW Standard Deviation 49.1 fL (36.4-46.3); Red Blood Count 3.63 M/uL (4.7-6.1); White Blood Count 13.28 K/uL (4.8-10.8)
[2020-01-07] MEDS: HEPARIN SOD 5,000 UNIT/0.5 ML VIAL SQ SCH (05:30)
[2020-01-07 05:46] LABS: Albumin Globulin Ratio 0.4 (0.9-2); Albumin Level 1.6 gm/dl (3.4-5.0); BUN Creatinine Ratio 38.8 (10-20); Bilirubin,Total 0.4 mg/dl (0.2-1); Calcium 8.4 mg/dl (8.5-10.1); Creatinine Clr Calc Pharmacy 66.9 ml/min; Est GFR (African American) 89.5; Est GFR (Non-African American) 77.3; Globulin 3.9 gm/dl (2.5-4.0); Phosphorus 1.9 mg/dl (2.5-4.9); Potassium 3.9 mmol/L (3.5-5.1); Total Protein 5.5 gm/dl (6.4-8.2)
[2020-01-07 05:49] LABS: iSTAT Allen Test Pass; iSTAT Art Bld Gas pCO2 Correct 31 mmHg (35-46); iSTAT Art Bld Gas pH Corrected 7.463 (7.35-7.45); iSTAT Arterial Blood Gas HCO3 22 meg/L (19-24); iSTAT Arterial Blood Gas pCO2 32 mmHg (35-46); iSTAT Arterial Blood Gas pH 7.46 (7.35-7.45); iSTAT Arterial Blood Gas pO2 69 mmHg (80-95); iSTAT Arterial Blood Gas pO2 C 68; iSTAT Carbon Dioxide 23 mmol/L (24-31); iSTAT Hematocrit 31 % (42-52); iSTAT Hemoglobin 10.5 g/dl (14.0-18.0); iSTAT Potassium 3.6 mmol/L (3.3-5.0); iSTAT Site R Radial; iSTAT Sodium 142 mmol/L (135-144)
[2020-01-07] MEDS: fentaNYL DRIP 1,250 MCG/250 ML BAG IV SCH (05:51)
[2020-01-07] MEDS: ALBUT/IPRATROP 3MG/0.5MG NEB 3 ML VIAL NEB SCH ×4 (07:14→19:02)
--- NOTE | 2020-01-07 07:52 | XRay Report ---
XR chest 1V portable CLINICAL HISTORY: Respiratory failure COMPARISON STUDY: 01/06/2020 FINDINGS: There is an endotracheal tube 31 mm above the miguel. There is a nasogastric tube which pas ses into the stomach. There are bilateral pulmonary airspace opacities. There is a left pleural effus ion.[ IMPRESSION: 1. Persistent bilateral pulmonary airspace opacities 2. Persistent left pleural effusion ACT 112: Negative or not required by law. Electronically signed by: Carmelo Blankenship M.D. 01/07/2020 7:51 AM
[2020-01-07] MEDS: VALPROATE SOD 250 MG in DEXTROSE 5% 50 ML IV SCH ×3 (08:12→21:04)
[2020-01-07] MEDS: FAMOTIDINE 20 MG in SYRINGE 3 ML IV SCH ×2 (08:17→21:04)
--- NOTE | 2020-01-07 09:54 | Critical Care Progress Note ---
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 Dementia: Alzheimer's -Per neurology it appears his neurological baseline was tracking with his eyes beyond that he was largely unresponsive to commands Chronic narcotic use Acute encephalopathy: Mixed -Reviewed psychiatry notes Resp: Acute hypoxic respiratory failure -Intubation mechanical ventilation: Day 3 -Bronchoscopy -Yeast found on bronchoscopy -Significant bilateral infiltrates with left-sided pleural effusion large secretion burden would preclude successful extubation given poor mental status baseline CV: Coronary artery disease Peripheral vascular disease -As evidenced by bypass grafts on KUB -81 mg aspirin daily Fluids/Renal: Acute kidney injury: Improving Hypernatremia: Improving: Down to 146 Hyperchloremic metabolic acidosis: Improving -Free water deficit: Nearly replaced -Free water administration via NG tube: Increased today, will discontinue half NS -Peptamen at 20 mL's with 300 mL free water flush every 4 hours Hypermagnesemia Lactic acidosis ID: Gram-negative bacilli bacteremia: E. coli: Nia quinolone resistance -De-escalate to ceftriaxone IV for 10-day duration, this is broader spectrum than Ancef until we can rule out any biliary pathology Gram-negative bacilli urinary tract infection -E. coli isolated from urine in November 26, 2018, April 28, 2019: Nia quinolone resistant, May 21, 2019: Nia quinolone resistant as well as July 05, 2019: Fluoroquinolone resistant Bio fire respiratory panel: Carbone negative COVID PCR negative Legionella antigen pending GI/Nutrition: Trickle Peptamen -Enteral access for free water administration Transaminitis: New onset -Acute hepatitis panel: Hepatitis B and C- -Complete abdominal ultrasound: Eval liver and possible ascites -Lipase: Within normal limits, triglycerides: 401, GGT: Pending Protein calorie malnutrition -Chronically low protein and albumin levels and cachexia Heme: Anemia: Megaloblastic DVT prophylaxis: Convert to Lovenox 40 daily Endocrine: ICU hyperglycemia protocol Hyperglycemia: Removing dextrose containing solutions Vascular access: Peripheral IVs Code Status: Full -Family meeting at 1400 Disposition: ICU (2) Extrapyramidal and movement disorder: (3) Chronic prescription opiate use: (4) Peripheral vascular disease: (5) Seizure disorder: (6) Urinary tract infection: (7) Acute kidney injury: (8) Pneumonia: (9) Sepsis associated hypotension: (10) Hypernatremia: (11) Schizophrenia: (12) Acute encephalopathy: Admission and Anticipated Discharge Date Admission Date: January 04, 2020 Supervising Physician Co-Signing Physician Notes Had extensive discussion with palliative care and the patient's brother. Discussed prognosis and treatment plans. At this time the patient's brother needs to consider the options moving forward. My understanding at this time as the patient has been a resident of [facility] for approximately 4 years. The patient has had neurocognitive decline in the recent weeks to months. Per the brother's report and nursing notes there may be a discrepancy with the reported extent of dementia, and review of previous notes: Emergency department November 26, 2018 the patient was noted to be nonverbal at that time. Additionally the physical exam findings make me suspect that he has had significant immobility for prolonged periods, his right upper extremity is contracted and he has significant hammertoes and and bunion which would make walking extremely difficult. Notes from the 2019 visit indicate that the patient was DNR at that time. Subjective No overnight events Review of Systems Review of Systems: Unobtainable due to endotracheal tube Physical Exam Physical Exam: General: Lethargic, occasionally opens eyes and tracks with stimulation Skin: Warm, dry, Head: Atraumatic Ears, nose, mouth and throat: airway obscured by endotracheal tube Cardiovascular: Normal peripheral perfusion Respiratory: no respiratory distress, coarse sounds bilaterally Gastrointestinal: Non distended Results & Data Results & Data ([facility]) Vital Signs (Past 12 Hours) Vital Signs Pulse Resp BP Pulse Ox Pulse Ox 01/07/20 08:00 89 96 01/07/20 07:45 89 24 99 01/07/20 06:00 83 96 01/07/20 05:30 85 96 01/07/20 05:19 85 162/93 H 97 01/07/20 05:00 85 96 01/07/20 04:45 85 21 95 01/07/20 04:30 84 95 01/07/20 04:18 84 153/88 H 97 01/07/20 04:00 85 97 01/07/20 03:30 86 97 01/07/20 03:19 85 163/104 H 97 01/07/20 03:00 86 98 01/07/20 02:18 85 147/85 H 96 01/07/20 02:00 83 97 01/07/20 01:20 85 20 96 01/07/20 01:18 87 157/89 H 97 01/07/20 01:00 86 96 01/07/20 00:30 88 97 01/07/20 00:18 84 150/87 H 97 01/07/20 00:00 85 97 01/06/20 23:30 90 98 01/06/20 23:18 88 152/93 H 98 01/06/20 23:00 90 98 01/06/20 22:36 88 21 96 01/06/20 22:30 88 98 01/06/20 22:19 89 163/86 H 97 01/06/20 22:00 88 97 Laboratory Results 01/07/20 01/07/20 01/07/20 Range/Units 16:12 11:27 10:15 WBC (4.8-10.8) K/uL RBC (4.7-6.1) M/uL Hgb (14.0-18.0) g/dL POC Hgb (14.0-18.0) g/dl Hct (42-52) % POC Hct (42-52) % MCV (80-100) fL MCH (25-34) pg MCHC (32-36) g/dL RDW Std Deviation (36.4-46.3) fL RDW Coeff of Kasey (11.5-14.5) % Plt Count (130-400) K/uL MPV (7.4-10.4) fL Immature Gran % (Auto) % Neut % (Auto) % Lymph % (Auto) % [place] % (Auto) % Eos % (Auto) % Baso % (Auto) % Neut # (Auto) (1.4-6.5) K/uL Lymph # (Auto) (1.2-3.4) K/uL [place] # (Auto) (0.11-0.59) K/uL Eos # (Auto) (0-0.5) K/uL Baso # (Auto) (0-0.2) K/uL Immature Gran # (Auto) (0.00-0.02) K/uL Absolute Nucleated RBC (0-0) K/uL Nucleated RBC % (auto) % Sample Site POC pH (7.35-7.45) POC pCO2 (35-46) mmHg POC pO2 (80-95) mmHg POC HCO3 (19-24) errol/L POC Total CO2 (24-31) mmol/L POC Base Excess (-9-1.8) errol/L ABG pH (Temp Correct) (7.35-7.45) ABG pCO2 (Temp Corrct (35-46) mmHg POC ABG pO2 at Pt Temp POC ABG O2 Sat (90-95) % Yves Test O2 Delivery Device POC O2 Rate Minute Ventilation Tidal Volume PEEP POC Sodium (135-144) mmol/L Sodium (136-145) mmol/L POC Potassium (3.3-5.0) mmol/L Potassium (3.5-5.1) mmol/L Chloride (98-107) mmol/L Carbon Dioxide (21-32) mmol/L Anion Gap (3-11) BUN (7-18) mg/dl Creatinine (0.6-1.4) mg/dl Est Cr Clr Drug Dosing ml/min Est GFR ( Amer) Est GFR (Non-Af Amer) BUN/Creatinine Ratio (10-20) Glucose (70-99) mg/dl POC Glucose 153 H 197 H (70-99) mg/dl Calcium (8.5-10.1) mg/dl Phosphorus (2.5-4.9) mg/dl Magnesium (1.8-2.4) mg/dl Total Bilirubin (0.2-1) mg/dl GGT Pending AST (15-37) U/L ALT (12-78) U/L Alkaline Phosphatase (45-117) U/L Total Protein (6.4-8.2) gm/dl Albumin (3.4-5.0) gm/dl Globulin (2.5-4.0) gm/dl Albumin/Globulin Ratio (0.9-2) Triglycerides (0-150) mg/dl Lipase (73-393) U/L Specimen Hemolysis Hepatitis A IgM Ab Hep Bs Antigen (Neg) Hep B Core IgM Ab Hepatitis C Antibody (Neg) 01/07/20 01/07/20 01/07/20 Range/Units 10:15 10:15 10:15 WBC (4.8-10.8) K/uL RBC (4.7-6.1) M/uL Hgb (14.0-18.0) g/dL POC Hgb (14.0-18.0) g/dl Hct (42-52) % POC Hct (42-52) % MCV (80-100) fL MCH (25-34) pg MCHC (32-36) g/dL RDW Std Deviation (36.4-46.3) fL RDW Coeff of Kasey (11.5-14.5) % Plt Count (130-400) K/uL MPV (7.4-10.4) fL Immature Gran % (Auto) % Neut % (Auto) % Lymph % (Auto) % [place] % (Auto) % Eos % (Auto) % Baso % (Auto) % Neut # (Auto) (1.4-6.5) K/uL Lymph # (Auto) (1.2-3.4) K/uL [place] # (Auto) (0.11-0.59) K/uL Eos # (Auto) (0-0.5) K/uL Baso # (Auto) (0-0.2) K/uL Immature Gran # (Auto) (0.00-0.02) K/uL Absolute Nucleated RBC (0-0) K/uL Nucleated RBC % (auto) % Sample Site POC pH (7.35-7.45) POC pCO2 (35-46) mmHg POC pO2 (80-95) mmHg POC HCO3 (19-24) errol/L POC Total CO2 (24-31) mmol/L POC Base Excess (-9-1.8) errol/L ABG pH (Temp Correct) (7.35-7.45) ABG pCO2 (Temp Corrct (35-46) mmHg POC ABG pO2 at Pt Temp POC ABG O2 Sat (90-95) % Yves Test O2 Delivery Device POC O2 Rate Minute Ventilation Tidal Volume PEEP POC Sodium (135-144) mmol/L Sodium (136-145) mmol/L POC Potassium (3.3-5.0) mmol/L Potassium (3.5-5.1) mmol/L Chloride (98-107) mmol/L Carbon Dioxide (21-32) mmol/L Anion Gap (3-11) BUN (7-18) mg/dl Creatinine (0.6-1.4) mg/dl Est Cr Clr Drug Dosing ml/min Est GFR ( Amer) Est GFR (Non-Af Amer) BUN/Creatinine Ratio (10-20) Glucose (70-99) mg/dl POC Glucose (70-99) mg/dl Calcium (8.5-10.1) mg/dl Phosphorus (2.5-4.9) mg/dl Magnesium (1.8-2.4) mg/dl Total Bilirubin (0.2-1) mg/dl GGT AST (15-37) U/L ALT (12-78) U/L Alkaline Phosphatase (45-117) U/L Total Protein (6.4-8.2) gm/dl Albumin (3.4-5.0) gm/dl Globulin (2.5-4.0) gm/dl Albumin/Globulin Ratio (0.9-2) Triglycerides 401 H (0-150) mg/dl Lipase 248 (73-393) U/L Specimen Hemolysis Hepatitis A IgM Ab Pending Hep Bs Antigen Neg (Neg) Hep B Core IgM Ab Pending Hepatitis C Antibody Neg (Neg) 01/07/20 01/07/20 01/07/20 Range/Units 08:05 05:36 04:33 WBC (4.8-10.8) K/uL RBC (4.7-6.1) M/uL Hgb (14.0-18.0) g/dL POC Hgb 10.5 L (14.0-18.0) g/dl Hct (42-52) % POC Hct 31 L (42-52) % MCV (80-100) fL MCH (25-34) pg MCHC (32-36) g/dL RDW Std Deviation (36.4-46.3) fL RDW Coeff of Kasey (11.5-14.5) % Plt Count (130-400) K/uL MPV (7.4-10.4) fL Immature Gran % (Auto) % Neut % (Auto) % Lymph % (Auto) % [place] % (Auto) % Eos % (Auto) % Baso % (Auto) % Neut # (Auto) (1.4-6.5) K/uL Lymph # (Auto) (1.2-3.4) K/uL [place] # (Auto) (0.11-0.59) K/uL Eos # (Auto) (0-0.5) K/uL Baso # (Auto) (0-0.2) K/uL Immature Gran # (Auto) (0.00-0.02) K/uL Absolute Nucleated RBC (0-0) K/uL Nucleated RBC % (auto) % Sample Site R Radial POC pH 7.46 H (7.35-7.45) POC pCO2 32 L (35-46) mmHg POC pO2 69 L (80-95) mmHg POC HCO3 22 (19-24) errol/L POC Total CO2 23 L (24-31) mmol/L POC Base Excess -1.0 (-9-1.8) errol/L ABG pH (Temp Correct) 7.463 H (7.35-7.45) ABG pCO2 (Temp Corrct 31 L (35-46) mmHg POC ABG pO2 at Pt Temp 68 POC ABG O2 Sat 95.0 (90-95) % Yves Test Pass O2 Delivery Device Ventilator POC O2 Rate 12 Minute Ventilation 8.0 Tidal Volume 450 PEEP 5 POC Sodium 142 (135-144) mmol/L Sodium 146 H (136-145) mmol/L POC Potassium 3.6 (3.3-5.0) mmol/L Potassium 3.9 (3.5-5.1) mmol/L Chloride 114 H (98-107) mmol/L Carbon Dioxide 27 (21-32) mmol/L Anion Gap 5.0 (3-11) BUN 38 H (7-18) mg/dl Creatinine 0.98 (0.6-1.4) mg/dl Est Cr Clr Drug Dosing 66.9 ml/min Est GFR ( Amer) 89.5 Est GFR (Non-Af Amer) 77.3 BUN/Creatinine Ratio 38.8 H (10-20) Glucose 195 H (70-99) mg/dl POC Glucose 209 H (70-99) mg/dl Calcium 8.4 L (8.5-10.1) mg/dl Phosphorus 1.9 L (2.5-4.9) mg/dl Magnesium 2.0 (1.8-2.4) mg/dl Total Bilirubin 0.4 (0.2-1) mg/dl GGT AST 124 H (15-37) U/L ALT 93 H (12-78) U/L Alkaline Phosphatase 83 (45-117) U/L Total Protein 5.5 L (6.4-8.2) gm/dl Albumin 1.6 L (3.4-5.0) gm/dl Globulin 3.9 (2.5-4.0) gm/dl Albumin/Globulin Ratio 0.4 L (0.9-2) Triglycerides (0-150) mg/dl Lipase (73-393) U/L Specimen Hemolysis Hepatitis A IgM Ab Hep Bs Antigen (Neg) Hep B Core IgM Ab Hepatitis C Antibody (Neg) 01/07/20 01/07/20 01/07/20 Range/Units 04:33 04:13 00:09 WBC 13.28 H (4.8-10.8) K/uL RBC 3.63 L (4.7-6.1) M/uL Hgb 11.2 L (14.0-18.0) g/dL POC Hgb (14.0-18.0) g/dl Hct 34.9 L (42-52) % POC Hct (42-52) % MCV 96.1 (80-100) fL MCH 30.9 (25-34) pg MCHC 32.1 (32-36) g/dL RDW Std Deviation 49.1 H (36.4-46.3) fL RDW Coeff of Kasey 13.9 (11.5-14.5) % Plt Count 229 (130-400) K/uL MPV 11.4 H (7.4-10.4) fL Immature Gran % (Auto) 3.8 % Neut % (Auto) 81.3 % Lymph % (Auto) 8.5 % [place] % (Auto) 5.8 % Eos % (Auto) 0.4 % Baso % (Auto) 0.2 % Neut # (Auto) 10.80 H (1.4-6.5) K/uL Lymph # (Auto) 1.13 L (1.2-3.4) K/uL [place] # (Auto) 0.77 H (0.11-0.59) K/uL Eos # (Auto) 0.05 (0-0.5) K/uL Baso # (Auto) 0.02 (0-0.2) K/uL Immature Gran # (Auto) 0.51 H (0.00-0.02) K/uL Absolute Nucleated RBC 0.04 H (0-0) K/uL Nucleated RBC % (auto) 0.3 % Sample Site POC pH (7.35-7.45) POC pCO2 (35-46) mmHg POC pO2 (80-95) mmHg POC HCO3 (19-24) errol/L POC Total CO2 (24-31) mmol/L POC Base Excess (-9-1.8) errol/L ABG pH (Temp Correct) (7.35-7.45) ABG pCO2 (Temp Corrct (35-46) mmHg POC ABG pO2 at Pt Temp POC ABG O2 Sat (90-95) % Yves Test O2 Delivery Device POC O2 Rate Minute Ventilation Tidal Volume PEEP POC Sodium (135-144) mmol/L Sodium (136-145) mmol/L POC Potassium (3.3-5.0) mmol/L Potassium (3.5-5.1) mmol/L Chloride (98-107) mmol/L Carbon Dioxide (21-32) mmol/L Anion Gap (3-11) BUN (7-18) mg/dl Creatinine (0.6-1.4) mg/dl Est Cr Clr Drug Dosing ml/min Est GFR ( Amer) Est GFR (Non-Af Amer) BUN/Creatinine Ratio (10-20) Glucose (70-99) mg/dl POC Glucose 226 H 244 H (70-99) mg/dl Calcium (8.5-10.1) mg/dl Phosphorus (2.5-4.9) mg/dl Magnesium (1.8-2.4) mg/dl Total Bilirubin (0.2-1) mg/dl GGT AST (15-37) U/L ALT (12-78) U/L Alkaline Phosphatase (45-117) U/L Total Protein (6.4-8.2) gm/dl Albumin (3.4-5.0) gm/dl Globulin (2.5-4.0) gm/dl Albumin/Globulin Ratio (0.9-2) Triglycerides (0-150) mg/dl Lipase (73-393) U/L Specimen Hemolysis Hepatitis A IgM Ab Hep Bs Antigen (Neg) Hep B Core IgM Ab Hepatitis C Antibody (Neg) 01/06/20 Range/Units 20:45 WBC (4.8-10.8) K/uL RBC (4.7-6.1) M/uL Hgb (14.0-18.0) g/dL POC Hgb (14.0-18.0) g/dl Hct (42-52) % POC Hct (42-52) % MCV (80-100) fL MCH (25-34) pg MCHC (32-36) g/dL RDW Std Deviation (36.4-46.3) fL RDW Coeff of Kasey (11.5-14.5) % Plt Count (130-400) K/uL MPV (7.4-10.4) fL Immature Gran % (Auto) % Neut % (Auto) % Lymph % (Auto) % [place] % (Auto) % Eos % (Auto) % Baso % (Auto) % Neut # (Auto) (1.4-6.5) K/uL Lymph # (Auto) (1.2-3.4) K/uL [place] # (Auto) (0.11-0.59) K/uL Eos # (Auto) (0-0.5) K/uL Baso # (Auto) (0-0.2) K/uL Immature Gran # (Auto) (0.00-0.02) K/uL Absolute Nucleated RBC (0-0) K/uL Nucleated RBC % (auto) % Sample Site POC pH (7.35-7.45) POC pCO2 (35-46) mmHg POC pO2 (80-95) mmHg POC HCO3 (19-24) errol/L POC Total CO2 (24-31) mmol/L POC Base Excess (-9-1.8) errol/L ABG pH (Temp Correct) (7.35-7.45) ABG pCO2 (Temp Corrct (35-46) mmHg POC ABG pO2 at Pt Temp POC ABG O2 Sat (90-95) % Yves Test O2 Delivery Device POC O2 Rate Minute Ventilation Tidal Volume PEEP POC Sodium (135-144) mmol/L Sodium (136-145) mmol/L POC Potassium (3.3-5.0) mmol/L Potassium (3.5-5.1) mmol/L Chloride (98-107) mmol/L Carbon Dioxide (21-32) mmol/L Anion Gap (3-11) BUN (7-18) mg/dl Creatinine (0.6-1.4) mg/dl Est Cr Clr Drug Dosing ml/min Est GFR ( Amer) Est GFR (Non-Af Amer) BUN/Creatinine Ratio (10-20) Glucose (70-99) mg/dl POC Glucose 224 H (70-99) mg/dl Calcium (8.5-10.1) mg/dl Phosphorus (2.5-4.9) mg/dl Magnesium (1.8-2.4) mg/dl Total Bilirubin (0.2-1) mg/dl GGT AST (15-37) U/L ALT (12-78) U/L Alkaline Phosphatase (45-117) U/L Total Protein (6.4-8.2) gm/dl Albumin (3.4-5.0) gm/dl Globulin (2.5-4.0) gm/dl Albumin/Globulin Ratio (0.9-2) Triglycerides (0-150) mg/dl Lipase (73-393) U/L Specimen Hemolysis Hepatitis A IgM Ab Hep Bs Antigen (Neg) Hep B Core IgM Ab Hepatitis C Antibody (Neg) Coding Level of Care Code Critical Care 1st 30-74 mins Diagnoses Acute respiratory failure with hypoxia J96.01 Extrapyramidal and movement disorder G25.9 Chronic prescription opiate use Z79.891 Peripheral vascular disease I73.9 Seizure disorder G40.909 Urinary tract infection N39.0 Acute kidney injury N17.9 Pneumonia J18.9 Sepsis associated hypotension A41.9; I95.9 Hypernatremia E87.0 Schizophrenia F20.9 Acute encephalopathy G93.40 Time Spent (min) 45 Comment I have personally spent 45 minutes of critical care time in the direct management of this patient. This is a life/limb threatening event. This includes time spent evaluating patient, direct bedside care, chart review, placing orders, interpretation of diagnostic studies, discussion with consultants, patient, and/or family members regarding treatment decisions, as well as other required patient management activities. This time is exclusive of all separately billable procedures, and teaching time and separate from and in addition to any other critical care service time.
[2020-01-07] MEDS ORDERED: POTASSIUM PHOSPHATE 18 MMOL in SODIUM CHLORIDE 0.9% 500 ML IV ONE (11:00)
[2020-01-07 11:07] LABS: Lipase 248 U/L (73-393); Triglycerides 401 mg/dl (0-150)
[2020-01-07] MEDS: ASPIRIN 81 MG CHEW PO SCH (11:28)
[2020-01-07] MEDS: cefTRIAXone SODIUM 1,000 MG in DEXTROSE 5% 50 ML IV SCH (11:30)
[2020-01-07] MEDS: IMPACT LIQD 1.0 CAL 1,000 ML BAG NG PRN (11:44)
[2020-01-07] MEDS ORDERED: INSULIN GLARGINE SOLOSTAR 100 UNITS/ML 3 ML PEN SC ONE (12:00)
--- NOTE | 2020-01-07 14:03 | Pharmacy Report ---
Pharmacy Glycemic Rec 1 - Date of Service January 07, 2020 - Scope Glycemic Pharmacist to provide recommendations to improve glycemic control (all ICU patients are screened for hyperglycemia and treatment recommendations are provided per protocol). Pt identified with hyperglycemia (BSG above 180) while admitted to [facility] [place] ([facility]). - Subjective The patient is a 69 year old M admitted on 01/04/20 18:44 for SEPSIS,ASPIRATION/COMMUNITY ACQUIRED PNA. - Objective Accuchecks BSG (last 24hrs):: 01/06/20 01/06/20 01/07/20 16:08 20:45 00:09 Glucose POC Glucose 217 H 224 H 244 H 01/07/20 01/07/20 01/07/20 04:13 04:33 08:05 Glucose 195 H POC Glucose 226 H 209 H 01/07/20 11:27 Glucose POC Glucose 197 H Laboratory Data (last 24hrs):: 01/07/20 01/07/20 04:33 04:33 WBC 13.28 H Sodium 146 H Potassium 3.9 Anion Gap 5.0 BUN 38 H Creatinine 0.98 BUN/Creatinine Ratio 38.8 H Phosphorus 1.9 L - Recent Pertinent Medications Outpatient Anti-diabetic Regimen: * Lantus 10 units QAM The patient is currently receiving: * Basal Insulin: Lantus 20 units x1 yesterday * Correctional Insulin: Novolog Correction per scale ACHS Goal Range: Low 140mg/dL - High 180 mg/dL Correction Factor: 25 mg/dL/unit * Prandial Insulin: Per carb ratio of 1 unit per 9 grams CHO consumed Risk Factors for Insulin Resistance: * Steroids: * Infection: ceftriaxone * Pressors: * IVF: * Recent Surgery * Diet: TF @ goal * Mechanical Ventilation: Intubated - Assessment & Plan ASSESSMENT: * BSGs trended up overnight with increase in tube feeds, low to mid 200s * Patient continues to be intubated, antibiotics de-escalated today for E. coli bacteremia RECOMMEND: * Increasing lantus 25 units x 1 today * Changing correction factor 20 mg/dl/unit * Changing carb ratio 1 unit per 8 grams CHO consumed * Continuing goal range Low 140 mg/dL - High 180 mg/dL Pharmacy will continue to provide recommendations in EMR while patient admitted to 1E/2E. Physicians may request pharmacy to continue to follow patient when transferred out of the ICU and/or consult pharmacy to write glycemic control orders * Please note that the plan above was derived based on current level of insulin resistance and hospital stress. These recommendations are appropriate for inpatient admission only. Plan of care upon discharge will need to be reassessed to avoid potential outpatient hypo/hyperglycemia. Thank you.
--- NOTE | 2020-01-07 14:14 | Ultrasound Report ---
US abdomen complete HISTORY: Abnormal lab exam new transaminitis. COMPARISON: None. FINDINGS: Pancreas: Poorly seen due to overlying bowel content Liver: Unremarkable. Gallbladder: No gallbladder wall thickening. No gallstones. CBD: 8 mm Kidneys: No evidence for hydronephrosis. 2 cm right renal cyst. Spleen: Poorly seen Aorta: Aortic stents in position and appear patent IVC: Patent. IMPRESSION: 1. Mild prominence of the common bile duct at 8 mm.. 2. Small right renal cyst. 3. Small fat-containing periumbilical hernia ACT 112: Negative or not required by law. The above report was generated using voice recognition software. It may contain grammatical, syntax or spelling errors. Electronically signed by: Soy Hsieh M.D. 01/07/2020 2:12 PM
[2020-01-07] MEDS: ENOXAPARIN INJ 40 MG/0.4 ML SYR SQ SCH (14:36)
--- NOTE | 2020-01-07 14:50 | Palliative Care Progress Note ---
Date of Service January 07, 2020 Assessment & Plan (1) Goals of care, counseling/discussion: This is a 69 year old male who was transferred to the [facility] from [facility] after nursing reported his SpO2 to be decreased and he was recently diagnosed with LLL infiltrates. The patient has an extensive past medical history that includes schizoaffective disorder, psychosis, dementia, cad, dm2, HLD, GERD, PVD, gout, seizure, and depression. 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 He is unable to feed himself and all of his ADL needs are anticipated and met by staff at [facility]. Brother reports patient was able to feed himself and converse approximately 1 month ago. The patient was intubated and remains intubated at this time. He is able to open his eyes, but does not track. -Family meeting at bedside with ICU attending and patient's brother in room 107. -The patient is intubated -The patient does open his eyes, blinks with confrontation but does not track or follow commands. -Currently, the patient is a Full Code; Discussed resuscitation in detail with brother at bedside-states he needs to think about it before making any changes to his CODE STATUS -I reached out and spoke with the brother, Octaviano POA) [phone]. He expressed that he is really frustrated with the care he has been receiving at [facility]. He expressed that he is very pleased with the care at [facility]. -Overall, it appears that the patients quality of life is poor at best. Brother reports that patient did have quite a zest for life and did want to keep living prior to his previous hospitalization -Will continue to follow and assist family with medical decision making (2) Acute respiratory failure with hypoxia: (3) Peripheral vascular disease: (4) Muscle weakness: (5) Schizoaffective disorder, chronic condition: (6) Dementia: (7) Schizophrenia: Subjective Family meeting held at bedside with patient's brother,Octaviano, ICU attending Dr. Douglas And myself. Reviewed patient's current condition, prognosis, treatment options and goals of care. Discussed CODE STATUS as well as details of resuscitation-Patient's brother stated he wishes to think about it before he makes a decision. Brother reports that patient was able to feed himself and able to participate in conversations approximately 1 month ago. Discussed possibility that patient would not improve and that he would not regain cognitive function enough for breathing and swallowing as well as the possibility of him improving and returning to near to his prior baseline as well as his condition could worsen over the next few days. Review of Systems Review of Systems: Unobtainable due to cognitive status Physical Exam Physical Exam: PE: Patient intubated and sedated HEENT: Does appear to focus on his brother's face at times, positive blink to confrontation Respiratory: Intubated, clear breath sounds anteriorly CV: Quadrigeminy, cold distal extremities, cool proximal extremities Abdomen: Not distended, NG tube in place Extremities: Pale, cool distal extremities Neuro: Positive blink to confrontation, does not blink or follow simple commands Results & Data Vital Signs (Past 12 Hours) Vital Signs Temp Pulse Resp BP Pulse Ox Pulse Ox 01/07/20 13:30 81 24 96 01/07/20 12:30 78 98 01/07/20 12:19 75 136/91 94 01/07/20 12:18 78 20 98 01/07/20 12:00 99.7 F H 79 21 98 01/07/20 11:30 82 97 01/07/20 11:19 83 139/84 97 01/07/20 11:00 83 98 01/07/20 10:30 81 96 01/07/20 10:19 85 148/86 H 96 01/07/20 10:00 85 96 01/07/20 09:30 83 96 01/07/20 09:19 83 159/95 H 96 01/07/20 09:00 84 96 01/07/20 08:30 82 98 01/07/20 08:26 81 162/90 H 97 01/07/20 08:19 82 162/90 H 96 01/07/20 08:00 91 H 96 96 01/07/20 07:45 89 24 99 01/07/20 07:30 92 H 97 01/07/20 07:22 90 173/97 H 97 01/07/20 07:18 89 171/103 H 97 01/07/20 07:00 83 97 01/07/20 06:30 78 97 01/07/20 06:18 82 150/100 H 96 01/07/20 06:00 83 96 01/07/20 05:30 85 96 01/07/20 05:19 85 162/93 H 97 01/07/20 05:00 85 96 01/07/20 04:45 85 21 95 01/07/20 04:30 84 95 01/07/20 04:18 84 153/88 H 97 01/07/20 04:00 85 97 01/07/20 03:30 86 97 01/07/20 03:19 85 163/104 H 97 01/07/20 03:00 86 98 PG Care Time/CCT Total # of Minutes Spent Total Time Spent with Patient: Total time spent 45 minutes with greater than 50% of the time spent at bedside discussing patient's current status, prognosis, treatment options and goals of care. Coding Level of Care Code 14151 Subseq Hosp Care Lvl 3 Diagnoses Goals of care, counseling/discussion Z71.89 Acute respiratory failure with hypoxia J96.01 Peripheral vascular disease I73.9 Muscle weakness M62.81 Schizoaffective disorder, chronic condition F25.8 Dementia F03.90 Schizophrenia F20.9 Time Spent (min) 45
[2020-01-07 14:54] LABS: Hepatitis B Surface Antigen Neg (Neg)
[2020-01-07 15:22] LABS: Hepatitis C IgG 13Yrs+Old_Rflx Neg (Neg)
--- NOTE | 2020-01-07 15:57 | Hospitalist Progress Note ---
Date of Service January 07, 2020 Assessment & Plan (1) Sepsis associated hypotension: gram negatives in blood and urine growing quinalone restant E Coli Hypotension responded to IV fluids antibiotics streamlined to Cefepime (2) Acute respiratory failure with hypoxia: Pt intubated and ventilated, managed by icu team (3) Pneumonia: Elevated procalcitonin and bilateral opacities on chest x-ray Continue broad-spectrum antibiotics as above. Aspiration vs. Health-care acquired (in shelter setting). urine cultures supports urinary source, but CXR also persists with basilar changes (4) Urinary tract infection: Will continue menjivar catheter at present due need to measure UO with sepsis. (5) Acute kidney injury: Suspected prerenal due to acute infection, dehydration (poor oral intake) and meloxicam use. Holding meloxicam. Continue IV fluid replacement as below. improving hypernatremia. (6) Hypernatremia: Increased overnight due to NSS given as boluses in ER and to some extent LR maintenance. Unlikely DI given no polyuria noted. Water deficit 2.7L Switch fluids to D5W 150 ml/hr Repeat BMP serially throughout the day (7) Altered mental state: metabolic encephalopathy CT head negative for acute intracranial abnormality EEG unremarkable. neurology feels may stop Keppra and eval for clinical changes, no immediate need for antiepileptics anti-psychotics and opiates but will start at lower dose and be guided by psy chiatry evaluation as above (8) Schizoaffective disorder, chronic condition: previously taking both Seroquel 100 mg twice daily (although notably on Seroquel 150mg TID in 2015) and haloperidol 2mg PO BID and 25 mg IM monthly. Consult psychiatry did not feel that delirium is related to his psychotropic medications. Recommending delirium protocol. Agreeing with holding venlafaxine but reinstituting it as soon as possible. (9) Psychosis: now that he is intubated. Unable to determine delusion or hallucinations given dementia and current cognitive state. Haloperidol as needed (10) Dementia: Noted history of stroke with old left cerebral infarct. Although Alzhe lacho's noted on prior problem list I suspect his prior stroke and medication are likely contributory. (11) Coronary artery disease: Unclear history of this. No prior stents or CABG Echocardiogram performed 01/03 shows normal EF, severe aortic stenosis. (12) Diabetes: HbA1C 6.6 Continue to hold out patient Lantus dosing while NPO Continue Novolog correction factor for now. (13) Hyperlipidemia: Hold simvastatin while NPO (14) GERD (gastroesophageal reflux disease): Switch omeprazole PO 20mg QAM to famotidine 20mg IV daily while NPO (15) Chronic prescription opiate use: Fentanyl patch removed on admission On chronic opiates for right foot and right hand pain. Also taking Meloxicam 15mg QAM and [place] Q6H OFE as per prior documentation Possible overdose causing lethargy on admission in setting of CORY (16) Peripheral vascular disease: Noted history of this. Not on antiplatelets are noted above. Holding simvastatin while NPO and lethargic. (17) Chronic gout: Will hold allopurinol while unable to take PO meds (18) Seizure disorder: Valproic acid and Keppra levels ordered (although notably these have previously been normal or low). Continue IV valproic acid and stop Keppra per neurology recommendations EEG - non-seizure activity noted despite head tremor during EEG. Very mild generalized slowing represents a very mild encephalopathy. 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 Suspect from prior stroke in setting of chronic anti-psychotic use. Consult neurology - discussed with Dr Landa and recommend patient is seen tomorrow after another day of medical optimization and psychiatry review of his outpatient medication regimen. (21) Depression: Continue venlafaxine once patient able to take PO meds (22) DVT prophylaxis: Heparin 5000 units SQ Q8H Family meeting with palliative care on 01/06 Brother is uncertain about changing code status and ongoing care decisions They will continue addressing Admission and Anticipated Discharge Date Admission Date: January 04, 2020 Subjective Patient is intubated and sedated. Per nursing, there has been no change in his level of interaction. Nursing reports no seizures over the last 24 hours. Review of Systems Review of Systems: Unable to obtain full ROS due to intubation/sedation status Physical Exam Constitutional: WD/WN, vitals as above Eyes: normal visual honeycutt by confrontation and + anicteric sclerae Neck: normal visual inspection and trachea midline Respiratory: normal respiratory effort, lungs clear to auscultation Cardiovascular: Rate/Rhythm: regular rate and regular rhythm Gastrointestinal (Abdomen): Inspection/Auscultation: abdomen not distended Percussion/Palpation: abdomen soft; abdomen nontender Musculoskeletal: Head/Neck/Chest: normocephalic and head atraumatic negative for edema, peripheral pulses intact Skin: no rashes, warm and dry Neurologic: + obtunded; + not awake Speech / Cognition: no anomia Psychiatric: Orientation: + not alert and + uncooperative Affect: + blunted affect Results & Data Results & Data ([facility]) Vital Signs (Past 12 Hours) Vital Signs Temp Pulse Pulse Resp BP Pulse Ox Pulse Ox 01/07/20 15:33 77 20 96 01/07/20 15:27 77 20 96 01/07/20 13:30 81 24 96 01/07/20 12:30 78 98 01/07/20 12:19 75 136/91 94 01/07/20 12:18 78 20 98 01/07/20 12:00 37.6 C H 79 21 98 01/07/20 11:30 82 97 01/07/20 11:19 83 139/84 97 01/07/20 11:00 83 98 01/07/20 10:30 81 96 01/07/20 10:19 85 148/86 H 96 01/07/20 10:00 85 96 01/07/20 09:30 83 96 01/07/20 09:19 83 159/95 H 96 01/07/20 09:00 84 96 01/07/20 08:30 82 98 01/07/20 08:26 81 162/90 H 97 01/07/20 08:19 82 162/90 H 96 01/07/20 08:00 91 H 96 96 01/07/20 07:45 89 24 99 01/07/20 07:30 92 H 97 01/07/20 07:22 90 173/97 H 97 01/07/20 07:18 89 171/103 H 97 01/07/20 07:00 83 97 01/07/20 06:30 78 97 01/07/20 06:18 82 150/100 H 96 01/07/20 06:00 83 96 01/07/20 05:30 85 96 01/07/20 05:19 85 162/93 H 97 01/07/20 05:00 85 96 01/07/20 04:45 85 21 95 01/07/20 04:30 84 95 01/07/20 04:18 84 153/88 H 97 01/07/20 04:00 85 97 PG Care Time/CCT Total # of Minutes Spent Total Time Spent with Patient: Total time spent is greater than 50% in coordination of care (as documented) at patient's floor/unit and/or counseling patient: Coding Level of Care Code 89010 Subseq Hosp Care Lvl 3 Diagnoses Sepsis associated hypotension A41.9; I95.9 Acute respiratory failure with hypoxia J96.01 Pneumonia J18.9 Urinary tract infection N39.0 Acute kidney injury N17.9 Hypernatremia E87.0 Altered mental state R41.82 Schizoaffective disorder, chronic condition F25.8 Psychosis F29 Dementia F03.90 Coronary artery disease I25.10 Diabetes E11.9 Hyperlipidemia E78.5 GERD (gastroesophageal reflux disease) K21.9 Chronic prescription opiate use Z79.891 Peripheral vascular disease I73.9 Chronic gout [id number] Seizure disorder G40.909 Muscle weakness M62.81 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
[2020-01-08 02:54] LABS: Hepatitis A Antibody IgM NON-REACTIVE (NON-REACTIVE); Hepatitis B Core Antibody IgM NON-REACTIVE (NON-REACTIVE)
[2020-01-08] MEDS: INSULIN ASPART 100 UNITS/ML 3 ML PEN SC SCH ×6 (04:04→23:33)
[2020-01-08] MEDS: propofoL 1,000 MG/100 ML VIAL IV SCH ×5 (04:05→23:33)
[2020-01-08 04:38] LABS: Hematocrit (blood only) 35.1 % (42-52); Hemoglobin 11.7 g/dL (14.0-18.0); Mean Corpuscular Hemoglobin 31.6 pg (25-34); Mean Corpuscular Hgb Conc 33.3 g/dL (32-36); Mean Corpuscular Volume 94.9 fL (80-100); Nucleated RBC # (auto) 0.05 K/uL (0-0); Nucleated RBC % (auto) 0.3 %; Platelet Count 248 K/uL (130-400); RDW Coefficient of Variation 13.7 % (11.5-14.5); RDW Standard Deviation 47.3 fL (36.4-46.3); White Blood Count 15.41 K/uL (4.8-10.8)
[2020-01-08 04:57] LABS: Albumin Level 1.7 gm/dl (3.4-5.0); BUN Creatinine Ratio 31.1 (10-20); Calcium 8.3 mg/dl (8.5-10.1); Creatinine Clr Calc Pharmacy 75.3 ml/min; Est GFR (African American) 100.6; Est GFR (Non-African American) 86.8; Magnesium 1.8 mg/dl (1.8-2.4); Potassium 3.9 mmol/L (3.5-5.1)
[2020-01-08 04:59] LABS: Albumin Globulin Ratio 0.4 (0.9-2); Bilirubin,Total 0.4 mg/dl (0.2-1); Globulin 3.9 gm/dl (2.5-4.0); Phosphorus 2.3 mg/dl (2.5-4.9); Total Protein 5.6 gm/dl (6.4-8.2)
[2020-01-08 05:21] LABS: Basophils # (auto) 0.04 K/uL (0-0.2); Basophils % (auto) 0.3 %; Eosinophils % (auto) 0.6 %; Immature Granulocytes # (auto) 1.29 K/uL (0.00-0.02); Immature Granulocytes % (auto) 8.4 %; Lymphocytes # (auto) 1.49 K/uL (1.2-3.4); Lymphocytes % (auto) 9.7 %; Monocytes # (auto) 1.35 K/uL (0.11-0.59); Monocytes % (auto) 8.8 %; Neutrophils # (auto) 11.14 K/uL (1.4-6.5); Neutrophils % (auto) 72.2 %; RBC Morphology Unremarkable
[2020-01-08 05:45] LABS: iSTAT Allen Test Pass; iSTAT Art Bld Gas pCO2 Correct 32 mmHg (35-46); iSTAT Art Bld Gas pH Corrected 7.481 (7.35-7.45); iSTAT Arterial Blood Gas HCO3 24 meg/L (19-24); iSTAT Arterial Blood Gas pCO2 31 mmHg (35-46); iSTAT Arterial Blood Gas pH 7.49 (7.35-7.45); iSTAT Arterial Blood Gas pO2 70 mmHg (80-95); iSTAT Arterial Blood Gas pO2 C 74; iSTAT Carbon Dioxide 25 mmol/L (24-31); iSTAT Hematocrit 32 % (42-52); iSTAT Hemoglobin 10.9 g/dl (14.0-18.0); iSTAT Potassium 3.8 mmol/L (3.3-5.0); iSTAT Site R Radial; iSTAT Sodium 136 mmol/L (135-144)
[2020-01-08] MEDS: fentaNYL DRIP 1,250 MCG/250 ML BAG IV SCH (05:55)
[2020-01-08] MEDS: SODIUM CHLOR 0.45% + 20MEQ KCL 20 MEQ/1,000 ML BAG IV SCH (05:55)
[2020-01-08] MEDS ORDERED: MAGNESIUM SULFATE / D5W 1 GM/100 ML BAG IV ONE (06:30)
[2020-01-08] MEDS: ALBUT/IPRATROP 3MG/0.5MG NEB 3 ML VIAL NEB SCH ×4 (07:06→18:19)
--- NOTE | 2020-01-08 07:13 | XRay Report ---
XR chest 1V portable HISTORY: 69 years-old Male resp failure acute respiratory failure COMPARISON: Chest radiographs 01/07/2020 TECHNIQUE: Portable AP view of the chest FINDINGS: Endotracheal tube overlies the midline, 4.4 cm superior to the miguel. An enteric tube is present, di stal tip projected over the abdominal left upper quadrant within the expected location of the mid gas tric body. Cardiomegaly. Pulmonary vascular congestion with interstitial coarsening. Trace right and small left pleural effusions with left midlung and left greater than right bibasilar airspace opaciti es. No pneumothorax. Degenerative changes of the shoulders and spine. IMPRESSION: 1. Endotracheal and enteric tubes as above. 2. Cardiomegaly with unchanged pulmonary vascular congestion and interstitial coarsening. 3. Trace right and small left pleural effusions. 4. Persistent bibasilar airspace opacities. ACT 112: Negative or not required by law. The above report was generated using voice recognition software. It may contain grammatical, syntax o r spelling errors. Electronically signed by: Yong Farrar M.D. 01/08/2020 7:11 AM
[2020-01-08] MEDS: ASPIRIN 81 MG CHEW PO SCH (08:32)
[2020-01-08] MEDS: VALPROATE SOD 250 MG in DEXTROSE 5% 50 ML IV SCH ×3 (08:32→20:41)
[2020-01-08] MEDS: FAMOTIDINE 20 MG in SYRINGE 3 ML IV SCH ×2 (08:32→20:41)
--- NOTE | 2020-01-08 09:53 | Critical Care Progress Note ---
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 Dementia: Alzheimer's -Per neurology it appears his neurological baseline was tracking with his eyes beyond that he was largely unresponsive to commands Chronic narcotic use -Fentanyl infusion -Attempt to wean propofol away and use single agent for sedation/analgesia Acute encephalopathy: Mixed -Reviewed psychiatry notes RASS 0 Resp: Acute hypoxic respiratory failure -Intubation mechanical ventilation: Day 4 -Bronchoscopy -Yeast found on bronchoscopy -Decreasing secretion burden improved compared to yesterday -Continued bilateral infiltrates on chest x-ray CV: Coronary artery disease Peripheral vascular disease -As evidenced by bypass grafts on KUB -81 mg aspirin daily Fluids/Renal: Acute kidney injury: Improving Hypernatremia: Improving: Down to 146 Hyperchloremic metabolic acidosis: Improving -Free water deficit: Resolved -Free water administration via NG tube: -Tube feeding at goal with normal free water flush Hypermagnesemia Lactic acidosis ID: Gram-negative bacilli bacteremia: E. coli: Nia quinolone resistance -De-escalate to ceftriaxone IV for 10-day duration, this is broader spectrum than Ancef until we can rule out any biliary pathology Gram-negative bacilli urinary tract infection -E. coli isolated from urine in November 26, 2018, April 28, 2019: Nia quinolone resistant, May 21, 2019: Nia quinolone resistant as well as July 05, 2019: Fluoroquinolone resistant Bio fire respiratory panel: Carbone negative COVID PCR negative Legionella antigen negative GI/Nutrition: Impact at goal Transaminitis: New onset -Acute hepatitis panel: Hepatitis B and C- -Enlarged common bile duct no evidence of Brar sign. -Lipase: Within normal limits, triglycerides: 401, GGT: 40 Protein calorie malnutrition -Chronically low protein and albumin levels and cachexia Heme: Anemia: Megaloblastic DVT prophylaxis: Lovenox 40 daily Endocrine: ICU hyperglycemia protocol Hyperglycemia: Increasing Lantus Vascular access: Peripheral IVs Code Status: Full -We will follow-up with brother and palliative care service. Disposition: ICU (2) Extrapyramidal and movement disorder: (3) Chronic prescription opiate use: (4) Peripheral vascular disease: (5) Seizure disorder: (6) Urinary tract infection: (7) Acute kidney injury: (8) Pneumonia: (9) Sepsis associated hypotension: (10) Hypernatremia: (11) Schizophrenia: (12) Acute encephalopathy: Admission and Anticipated Discharge Date Admission Date: January 04, 2020 Supervising Physician Co-Signing Physician Notes Following the discussion yesterday I discussed additional information with staff, brother has not called for updates during this hospitalization. Nursing staff had to provide name, address, and phone number for [facility] facility where the patient currently resides as his brother did not know this information. We have requested the patient's brother bring in power of managing attorney documentation, he reported the documentation was with the [facility]. Clinically this appears consistent with longstanding neurocognitive decline of the years in duration not that of several weeks nor months. In the setting of longstanding neurocognitive decline I believe that the patient is in an end- stage terminal condition. I believe the patient is likely chronically aspirating. I have not seen significant change in the patient's condition, he still has a significant secretion burden and given the lack of clarity with regards possible reintubation should he fail a trial of extubation I am awaiting further discussion with the patient's brother. Subjective No overnight events, with decrease in propofol patient exhibited signs of possible withdrawal symptoms of diaphoresis, tachycardia, tachypnea. Review of Systems Review of Systems: Unobtainable due to endotracheal tube Physical Exam Physical Exam: General: Lethargic, occasionally opens eyes and tracks with stimulation Skin: Warm, dry, Head: Atraumatic Ears, nose, mouth and throat: airway obscured by endotracheal tube Cardiovascular: Normal peripheral perfusion Respiratory: no respiratory distress, coarse sounds bilaterally Gastrointestinal: Non distended Results & Data Results & Data ([facility]) Vital Signs (Past 12 Hours) Vital Signs Temp Pulse Pulse Resp BP BP Pulse Ox 01/08/20 08:00 36.9 C 81 74 20 132/75 97 01/08/20 07:06 81 18 96 01/08/20 06:00 101 H 96 01/08/20 05:28 87 24 96 01/08/20 05:19 109 H 134/84 96 01/08/20 05:00 81 95 01/08/20 04:19 80 135/75 95 01/08/20 04:00 88 96 01/08/20 03:35 89 23 96 01/08/20 03:19 88 136/81 01/08/20 03:00 89 01/08/20 02:19 88 138/83 01/08/20 02:00 88 01/08/20 01:19 89 143/85 H 01/08/20 01:00 88 01/08/20 00:19 88 162/99 H 01/08/20 00:00 95 01/07/20 23:54 84 25 H 95 01/07/20 23:19 84 158/92 H 95 01/07/20 23:00 133 H 93 01/07/20 22:19 83 160/93 H 97 01/07/20 22:00 84 96 01/07/20 21:50 83 22 97 Pulse Ox 01/08/20 08:00 97 01/08/20 07:06 01/08/20 06:00 01/08/20 05:28 01/08/20 05:19 01/08/20 05:00 01/08/20 04:19 01/08/20 04:00 01/08/20 03:35 01/08/20 03:19 01/08/20 03:00 01/08/20 02:19 01/08/20 02:00 01/08/20 01:19 01/08/20 01:00 01/08/20 00:19 01/08/20 00:00 01/07/20 23:54 01/07/20 23:19 01/07/20 23:00 01/07/20 22:19 01/07/20 22:00 01/07/20 21:50 Laboratory Results 01/08/20 01/08/20 01/08/20 Range/Units 11:05 07:52 05:28 WBC (4.8-10.8) K/uL RBC (4.7-6.1) M/uL Hgb (14.0-18.0) g/dL POC Hgb 10.9 L (14.0-18.0) g/dl Hct (42-52) % POC Hct 32 L (42-52) % MCV (80-100) fL MCH (25-34) pg MCHC (32-36) g/dL RDW Std Deviation (36.4-46.3) fL RDW Coeff of Kasey (11.5-14.5) % Plt Count (130-400) K/uL MPV (7.4-10.4) fL Immature Gran % (Auto) % Neut % (Auto) % Lymph % (Auto) % [place] % (Auto) % Eos % (Auto) % Baso % (Auto) % Neut # (Auto) (1.4-6.5) K/uL Lymph # (Auto) (1.2-3.4) K/uL [place] # (Auto) (0.11-0.59) K/uL Eos # (Auto) (0-0.5) K/uL Baso # (Auto) (0-0.2) K/uL Immature Gran # (Auto) (0.00-0.02) K/uL Absolute Nucleated RBC (0-0) K/uL Nucleated RBC % (auto) % RBC Morphology Sample Site R Radial POC pH 7.49 H (7.35-7.45) POC pCO2 31 L (35-46) mmHg POC pO2 70 L (80-95) mmHg POC HCO3 24 (19-24) errol/L POC Total CO2 25 (24-31) mmol/L POC Base Excess 1.0 (-9-1.8) errol/L ABG pH (Temp Correct) 7.481 H (7.35-7.45) ABG pCO2 (Temp Corrct 32 L (35-46) mmHg POC ABG pO2 at Pt Temp 74 POC ABG O2 Sat 95.0 (90-95) % Yves Test Pass O2 Delivery Device Ventilator POC O2 Rate 12 Tidal Volume 450 PEEP 5 POC Sodium 136 (135-144) mmol/L Sodium (136-145) mmol/L POC Potassium 3.8 (3.3-5.0) mmol/L Potassium (3.5-5.1) mmol/L Chloride (98-107) mmol/L Carbon Dioxide (21-32) mmol/L Anion Gap (3-11) BUN (7-18) mg/dl Creatinine (0.6-1.4) mg/dl Est Cr Clr Drug Dosing ml/min Est GFR ( Amer) Est GFR (Non-Af Amer) BUN/Creatinine Ratio (10-20) Glucose (70-99) mg/dl POC Glucose 232 H 221 H (70-99) mg/dl Calcium (8.5-10.1) mg/dl Phosphorus (2.5-4.9) mg/dl Magnesium (1.8-2.4) mg/dl Total Bilirubin (0.2-1) mg/dl GGT (3-70) U/L AST (15-37) U/L ALT (12-78) U/L Alkaline Phosphatase (45-117) U/L Total Protein (6.4-8.2) gm/dl Albumin (3.4-5.0) gm/dl Globulin (2.5-4.0) gm/dl Albumin/Globulin Ratio (0.9-2) Hepatitis A IgM Ab (NON-REACTIVE) Hep B Core IgM Ab (NON-REACTIVE) Hepatitis C Antibody (Neg) Urine Legionella Ag 01/08/20 01/08/20 01/08/20 Range/Units 04:20 04:20 04:01 WBC 15.41 H (4.8-10.8) K/uL RBC 3.70 L (4.7-6.1) M/uL Hgb 11.7 L (14.0-18.0) g/dL POC Hgb (14.0-18.0) g/dl Hct 35.1 L (42-52) % POC Hct (42-52) % MCV 94.9 (80-100) fL MCH 31.6 (25-34) pg MCHC 33.3 (32-36) g/dL RDW Std Deviation 47.3 H (36.4-46.3) fL RDW Coeff of Kasey 13.7 (11.5-14.5) % Plt Count 248 (130-400) K/uL MPV 11.0 H (7.4-10.4) fL Immature Gran % (Auto) 8.4 % Neut % (Auto) 72.2 % Lymph % (Auto) 9.7 % [place] % (Auto) 8.8 % Eos % (Auto) 0.6 % Baso % (Auto) 0.3 % Neut # (Auto) 11.14 H (1.4-6.5) K/uL Lymph # (Auto) 1.49 (1.2-3.4) K/uL [place] # (Auto) 1.35 H (0.11-0.59) K/uL Eos # (Auto) 0.10 (0-0.5) K/uL Baso # (Auto) 0.04 (0-0.2) K/uL Immature Gran # (Auto) 1.29 H (0.00-0.02) K/uL Absolute Nucleated RBC 0.05 H (0-0) K/uL Nucleated RBC % (auto) 0.3 % RBC Morphology Unremarkable Sample Site POC pH (7.35-7.45) POC pCO2 (35-46) mmHg POC pO2 (80-95) mmHg POC HCO3 (19-24) errol/L POC Total CO2 (24-31) mmol/L POC Base Excess (-9-1.8) errol/L ABG pH (Temp Correct) (7.35-7.45) ABG pCO2 (Temp Corrct (35-46) mmHg POC ABG pO2 at Pt Temp POC ABG O2 Sat (90-95) % Yves Test O2 Delivery Device POC O2 Rate Tidal Volume PEEP POC Sodium (135-144) mmol/L Sodium 140 (136-145) mmol/L POC Potassium (3.3-5.0) mmol/L Potassium 3.9 (3.5-5.1) mmol/L Chloride 109 H (98-107) mmol/L Carbon Dioxide 25 (21-32) mmol/L Anion Gap 6.0 (3-11) BUN 27 H (7-18) mg/dl Creatinine 0.87 (0.6-1.4) mg/dl Est Cr Clr Drug Dosing 75.3 ml/min Est GFR ( Amer) 100.6 Est GFR (Non-Af Amer) 86.8 BUN/Creatinine Ratio 31.1 H (10-20) Glucose 178 H (70-99) mg/dl POC Glucose 170 H (70-99) mg/dl Calcium 8.3 L (8.5-10.1) mg/dl Phosphorus 2.3 L (2.5-4.9) mg/dl Magnesium 1.8 (1.8-2.4) mg/dl Total Bilirubin 0.4 (0.2-1) mg/dl GGT (3-70) U/L AST 124 H (15-37) U/L ALT 136 H (12-78) U/L Alkaline Phosphatase 108 (45-117) U/L Total Protein 5.6 L (6.4-8.2) gm/dl Albumin 1.7 L (3.4-5.0) gm/dl Globulin 3.9 (2.5-4.0) gm/dl Albumin/Globulin Ratio 0.4 L (0.9-2) Hepatitis A IgM Ab (NON-REACTIVE) Hep B Core IgM Ab (NON-REACTIVE) Hepatitis C Antibody (Neg) Urine Legionella Ag 01/07/20 01/07/20 01/07/20 Range/Units 23:53 21:00 16:12 WBC (4.8-10.8) K/uL RBC (4.7-6.1) M/uL Hgb (14.0-18.0) g/dL POC Hgb (14.0-18.0) g/dl Hct (42-52) % POC Hct (42-52) % MCV (80-100) fL MCH (25-34) pg MCHC (32-36) g/dL RDW Std Deviation (36.4-46.3) fL RDW Coeff of Kasey (11.5-14.5) % Plt Count (130-400) K/uL MPV (7.4-10.4) fL Immature Gran % (Auto) % Neut % (Auto) % Lymph % (Auto) % [place] % (Auto) % Eos % (Auto) % Baso % (Auto) % Neut # (Auto) (1.4-6.5) K/uL Lymph # (Auto) (1.2-3.4) K/uL [place] # (Auto) (0.11-0.59) K/uL Eos # (Auto) (0-0.5) K/uL Baso # (Auto) (0-0.2) K/uL Immature Gran # (Auto) (0.00-0.02) K/uL Absolute Nucleated RBC (0-0) K/uL Nucleated RBC % (auto) % RBC Morphology Sample Site POC pH (7.35-7.45) POC pCO2 (35-46) mmHg POC pO2 (80-95) mmHg POC HCO3 (19-24) errol/L POC Total CO2 (24-31) mmol/L POC Base Excess (-9-1.8) errol/L ABG pH (Temp Correct) (7.35-7.45) ABG pCO2 (Temp Corrct (35-46) mmHg POC ABG pO2 at Pt Temp POC ABG O2 Sat (90-95) % Yves Test O2 Delivery Device POC O2 Rate Tidal Volume PEEP POC Sodium (135-144) mmol/L Sodium (136-145) mmol/L POC Potassium (3.3-5.0) mmol/L Potassium (3.5-5.1) mmol/L Chloride (98-107) mmol/L Carbon Dioxide (21-32) mmol/L Anion Gap (3-11) BUN (7-18) mg/dl Creatinine (0.6-1.4) mg/dl Est Cr Clr Drug Dosing ml/min Est GFR ( Amer) Est GFR (Non-Af Amer) BUN/Creatinine Ratio (10-20) Glucose (70-99) mg/dl POC Glucose 177 H 147 H 153 H (70-99) mg/dl Calcium (8.5-10.1) mg/dl Phosphorus (2.5-4.9) mg/dl Magnesium (1.8-2.4) mg/dl Total Bilirubin (0.2-1) mg/dl GGT (3-70) U/L AST (15-37) U/L ALT (12-78) U/L Alkaline Phosphatase (45-117) U/L Total Protein (6.4-8.2) gm/dl Albumin (3.4-5.0) gm/dl Globulin (2.5-4.0) gm/dl Albumin/Globulin Ratio (0.9-2) Hepatitis A IgM Ab (NON-REACTIVE) Hep B Core IgM Ab (NON-REACTIVE) Hepatitis C Antibody (Neg) Urine Legionella Ag 01/07/20 01/07/20 01/07/20 Range/Units 10:15 10:15 10:15 WBC (4.8-10.8) K/uL RBC (4.7-6.1) M/uL Hgb (14.0-18.0) g/dL POC Hgb (14.0-18.0) g/dl Hct (42-52) % POC Hct (42-52) % MCV (80-100) fL MCH (25-34) pg MCHC (32-36) g/dL RDW Std Deviation (36.4-46.3) fL RDW Coeff of Kasey (11.5-14.5) % Plt Count (130-400) K/uL MPV (7.4-10.4) fL Immature Gran % (Auto) % Neut % (Auto) % Lymph % (Auto) % [place] % (Auto) % Eos % (Auto) % Baso % (Auto) % Neut # (Auto) (1.4-6.5) K/uL Lymph # (Auto) (1.2-3.4) K/uL [place] # (Auto) (0.11-0.59) K/uL Eos # (Auto) (0-0.5) K/uL Baso # (Auto) (0-0.2) K/uL Immature Gran # (Auto) (0.00-0.02) K/uL Absolute Nucleated RBC (0-0) K/uL Nucleated RBC % (auto) % RBC Morphology Sample Site POC pH (7.35-7.45) POC pCO2 (35-46) mmHg POC pO2 (80-95) mmHg POC HCO3 (19-24) errol/L POC Total CO2 (24-31) mmol/L POC Base Excess (-9-1.8) errol/L ABG pH (Temp Correct) (7.35-7.45) ABG pCO2 (Temp Corrct (35-46) mmHg POC ABG pO2 at Pt Temp POC ABG O2 Sat (90-95) % Yves Test O2 Delivery Device POC O2 Rate Tidal Volume PEEP POC Sodium (135-144) mmol/L Sodium (136-145) mmol/L POC Potassium (3.3-5.0) mmol/L Potassium (3.5-5.1) mmol/L Chloride (98-107) mmol/L Carbon Dioxide (21-32) mmol/L Anion Gap (3-11) BUN (7-18) mg/dl Creatinine (0.6-1.4) mg/dl Est Cr Clr Drug Dosing ml/min Est GFR ( Amer) Est GFR (Non-Af Amer) BUN/Creatinine Ratio (10-20) Glucose (70-99) mg/dl POC Glucose (70-99) mg/dl Calcium (8.5-10.1) mg/dl Phosphorus (2.5-4.9) mg/dl Magnesium (1.8-2.4) mg/dl Total Bilirubin (0.2-1) mg/dl GGT 40 (3-70) U/L AST (15-37) U/L ALT (12-78) U/L Alkaline Phosphatase (45-117) U/L Total Protein (6.4-8.2) gm/dl Albumin (3.4-5.0) gm/dl Globulin (2.5-4.0) gm/dl Albumin/Globulin Ratio (0.9-2) Hepatitis A IgM Ab NON-REACTIVE (NON-REACTIVE) Hep B Core IgM Ab NON-REACTIVE (NON-REACTIVE) Hepatitis C Antibody Neg (Neg) Urine Legionella Ag 01/05/20 Range/Units 20:26 WBC (4.8-10.8) K/uL RBC (4.7-6.1) M/uL Hgb (14.0-18.0) g/dL POC Hgb (14.0-18.0) g/dl Hct (42-52) % POC Hct (42-52) % MCV (80-100) fL MCH (25-34) pg MCHC (32-36) g/dL RDW Std Deviation (36.4-46.3) fL RDW Coeff of Kasey (11.5-14.5) % Plt Count (130-400) K/uL MPV (7.4-10.4) fL Immature Gran % (Auto) % Neut % (Auto) % Lymph % (Auto) % [place] % (Auto) % Eos % (Auto) % Baso % (Auto) % Neut # (Auto) (1.4-6.5) K/uL Lymph # (Auto) (1.2-3.4) K/uL [place] # (Auto) (0.11-0.59) K/uL Eos # (Auto) (0-0.5) K/uL Baso # (Auto) (0-0.2) K/uL Immature Gran # (Auto) (0.00-0.02) K/uL Absolute Nucleated RBC (0-0) K/uL Nucleated RBC % (auto) % RBC Morphology Sample Site POC pH (7.35-7.45) POC pCO2 (35-46) mmHg POC pO2 (80-95) mmHg POC HCO3 (19-24) errol/L POC Total CO2 (24-31) mmol/L POC Base Excess (-9-1.8) errol/L ABG pH (Temp Correct) (7.35-7.45) ABG pCO2 (Temp Corrct (35-46) mmHg POC ABG pO2 at Pt Temp POC ABG O2 Sat (90-95) % Yves Test O2 Delivery Device POC O2 Rate Tidal Volume PEEP POC Sodium (135-144) mmol/L Sodium (136-145) mmol/L POC Potassium (3.3-5.0) mmol/L Potassium (3.5-5.1) mmol/L Chloride (98-107) mmol/L Carbon Dioxide (21-32) mmol/L Anion Gap (3-11) BUN (7-18) mg/dl Creatinine (0.6-1.4) mg/dl Est Cr Clr Drug Dosing ml/min Est GFR ( Amer) Est GFR (Non-Af Amer) BUN/Creatinine Ratio (10-20) Glucose (70-99) mg/dl POC Glucose (70-99) mg/dl Calcium (8.5-10.1) mg/dl Phosphorus (2.5-4.9) mg/dl Magnesium (1.8-2.4) mg/dl Total Bilirubin (0.2-1) mg/dl GGT (3-70) U/L AST (15-37) U/L ALT (12-78) U/L Alkaline Phosphatase (45-117) U/L Total Protein (6.4-8.2) gm/dl Albumin (3.4-5.0) gm/dl Globulin (2.5-4.0) gm/dl Albumin/Globulin Ratio (0.9-2) Hepatitis A IgM Ab (NON-REACTIVE) Hep B Core IgM Ab (NON-REACTIVE) Hepatitis C Antibody (Neg) Urine Legionella Ag SEE NOTE Coding Level of Care Code Critical Care 1st 30-74 mins Diagnoses Acute respiratory failure with hypoxia J96.01 Extrapyramidal and movement disorder G25.9 Chronic prescription opiate use Z79.891 Peripheral vascular disease I73.9 Seizure disorder G40.909 Urinary tract infection N39.0 Acute kidney injury N17.9 Pneumonia J18.9 Sepsis associated hypotension A41.9; I95.9 Hypernatremia E87.0 Schizophrenia F20.9 Acute encephalopathy G93.40 Time Spent (min) 45 Comment I have personally spent 45 minutes of critical care time in the direct management of this patient. This is a life/limb threatening event. This includes time spent evaluating patient, direct bedside care, chart review, placing orders, interpretation of diagnostic studies, discussion with consultants, patient, and/or family members regarding treatment decisions, as well as other required patient management activities. This time is exclusive of all separately billable procedures, and teaching time and separate from and in addition to any other critical care service time.
[2020-01-08] MEDS: INSULIN GLARGINE SOLOSTAR 100 UNITS/ML 3 ML PEN SC SCH ×2 (10:26→20:44)
[2020-01-08] MEDS: IMPACT LIQD 1.0 CAL 1,000 ML BAG NG PRN (12:05)
[2020-01-08] MEDS: ENOXAPARIN INJ 40 MG/0.4 ML SYR SQ SCH (13:36)
[2020-01-08] MEDS: cefTRIAXone SODIUM 1,000 MG in DEXTROSE 5% 50 ML IV SCH (13:36)
--- NOTE | 2020-01-08 15:56 | Hospitalist Progress Note ---
Date of Service January 08, 2020 Assessment & Plan (1) Sepsis associated hypotension: gram negatives in blood and urine growing quinalone restant E Coli Hypotension responded to IV fluids antibiotics streamlined to Cefepime (2) Acute respiratory failure with hypoxia: Pt intubated and ventilated, managed by icu team (3) Pneumonia: Elevated procalcitonin and bilateral opacities on chest x-ray Continue broad-spectrum antibiotics as above. Aspiration vs. Health-care acquired (in half-way setting). urine cultures supports urinary source, but CXR also persists with basilar changes (4) Urinary tract infection: Will continue menjivar catheter at present due need to measure UO with sepsis. (5) Acute kidney injury: Suspected prerenal due to acute infection, dehydration (poor oral intake) and meloxicam use. Holding meloxicam. Continue IV fluid replacement as below. improving hypernatremia. (6) Hypernatremia: Increased overnight due to NSS given as boluses in ER and to some extent LR maintenance. Unlikely DI given no polyuria noted. Water deficit 2.7L Switch fluids to D5W 150 ml/hr Repeat BMP serially throughout the day (7) Altered mental state: metabolic encephalopathy CT head negative for acute intracranial abnormality EEG unremarkable. neurology feels may stop Keppra and eval for clinical changes, no immediate need for antiepileptics anti-psychotics and opiates but will start at lower dose and be guided by ps ychiatry evaluation as above (8) Schizoaffective disorder, chronic condition: previously taking both Seroquel 100 mg twice daily (although notably on Seroquel 150mg TID in 2015) and haloperidol 2mg PO BID and 25 mg IM monthly. Consult psychiatry did not feel that delirium is related to his psychotropic medications. Recommending delirium protocol. Agreeing with holding venlafaxine but reinstituting it as soon as possible. (9) Psychosis: now that he is intubated. Unable to determine delusion or hallucinations given dementia and current cognitive state. Haloperidol as needed (10) Dementia: Noted history of stroke with old left cerebral infarct. Although Alzh eimer's noted on prior problem list I suspect his prior stroke and medication are likely contributory. (11) Coronary artery disease: Unclear history of this. No prior stents or CABG Echocardiogram performed 01/03 shows normal EF, severe aortic stenosis. (12) Diabetes: HbA1C 6.6 Continue to hold out patient Lantus dosing while NPO Continue Novolog correction factor for now. (13) Hyperlipidemia: Hold simvastatin while NPO (14) GERD (gastroesophageal reflux disease): Switch omeprazole PO 20mg QAM to famotidine 20mg IV daily while NPO (15) Chronic prescription opiate use: Fentanyl patch removed on admission On chronic opiates for right foot and right hand pain. Also taking Meloxicam 15mg QAM and [place] Q6H OFE as per prior documentation Possible overdose causing lethargy on admission in setting of CORY (16) Peripheral vascular disease: Noted history of this. Not on antiplatelets are noted above. Holding simvastatin while NPO and lethargic. (17) Chronic gout: Will hold allopurinol while unable to take PO meds (18) Seizure disorder: Valproic acid and Keppra levels ordered (although notably these have previously been normal or low). Continue IV valproic acid and stop Keppra per neurology recommendations EEG - non-seizure activity noted despite head tremor during EEG. Very mild generalized slowing represents a very mild encephalopathy. 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 Suspect from prior stroke in setting of chronic anti-psychotic use. Consult neurology - discussed with Dr Landa and recommend patient is seen tomorrow after another day of medical optimization and psychiatry review of his outpatient medication regimen. (21) Depression: Continue venlafaxine once patient able to take PO meds (22) DVT prophylaxis: Heparin 5000 units SQ Q8H Family meeting with palliative care on 01/06 Brother is uncertain about changing code status and ongoing care decisions They will continue addressing Admission and Anticipated Discharge Date Admission Date: January 04, 2020 Subjective Patient is intubated and sedated. Per nursing, there has been no change in his level of interaction. Nursing reports no seizures over the last 24 hours but did have some sort of withdrawal type appearance with propofol being turned down. Review of Systems Review of Systems: Unable to obtain full ROS due to intubation/sedation status Physical Exam Constitutional: WD/WN, vitals as above Eyes: normal visual honeycutt by confrontation and + anicteric sclerae Neck: normal visual inspection and trachea midline Respiratory: normal respiratory effort, lungs clear to auscultation Cardiovascular: Rate/Rhythm: regular rate and regular rhythm Gastrointestinal (Abdomen): Inspection/Auscultation: abdomen not distended Percussion/Palpation: abdomen soft; abdomen nontender Musculoskeletal: Head/Neck/Chest: normocephalic and head atraumatic Skin: no rashes, warm and dry Neurologic: + obtunded; + not awake Speech / Cognition: no anomia Psychiatric: A+Ox3, euthymic affect Orientation: + not alert and + uncooperative Affect: + blunted affect Results & Data Results & Data ([facility]) Vital Signs (Past 12 Hours) Vital Signs Temp Pulse Pulse Resp BP BP Pulse Ox 01/08/20 15:09 81 25 H 94 01/08/20 13:22 79 28 H 95 01/08/20 11:19 92 H 188/101 H 98 01/08/20 11:00 84 99 01/08/20 10:35 85 24 97 01/08/20 10:19 90 155/99 H 98 01/08/20 10:00 88 97 01/08/20 09:19 83 144/84 H 95 01/08/20 09:00 75 95 01/08/20 08:19 88 163/92 H 96 01/08/20 08:00 36.9 C 81 74 20 132/75 96 01/08/20 07:19 83 139/90 95 01/08/20 07:06 81 18 96 01/08/20 07:00 84 97 01/08/20 06:00 101 H 96 01/08/20 05:28 87 24 96 01/08/20 05:19 109 H 134/84 96 01/08/20 05:00 81 95 01/08/20 04:19 80 135/75 95 01/08/20 04:00 88 96 Pulse Ox 01/08/20 15:09 01/08/20 13:22 01/08/20 11:19 01/08/20 11:00 01/08/20 10:35 01/08/20 10:19 01/08/20 10:00 01/08/20 09:19 01/08/20 09:00 01/08/20 08:19 01/08/20 08:00 97 01/08/20 07:19 01/08/20 07:06 01/08/20 07:00 01/08/20 06:00 01/08/20 05:28 01/08/20 05:19 01/08/20 05:00 01/08/20 04:19 01/08/20 04:00 PG Care Time/CCT Total # of Minutes Spent Total Time Spent with Patient: Total time spent is greater than 50% in coordination of care (as documented) at patient's floor/unit and/or counseling patient: Coding Level of Care Code 33645 Subseq Hosp Care Lvl 3 Diagnoses Sepsis associated hypotension A41.9; I95.9 Acute respiratory failure with hypoxia J96.01 Pneumonia J18.9 Urinary tract infection N39.0 Acute kidney injury N17.9 Hypernatremia E87.0 Altered mental state R41.82 Schizoaffective disorder, chronic condition F25.8 Psychosis F29 Dementia F03.90 Coronary artery disease I25.10 Diabetes E11.9 Hyperlipidemia E78.5 GERD (gastroesophageal reflux disease) K21.9 Chronic prescription opiate use Z79.891 Peripheral vascular disease I73.9 Chronic gout [id number] Seizure disorder G40.909 Muscle weakness M62.81 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
[2020-01-08] MEDS ORDERED: STAT IV Infusion **Titration per Protocol STA (20:49)
[2020-01-08] MEDS ORDERED: PROPOFOL BOLUS FROM BAG IV PRN (20:49)
[2020-01-09 03:58] LABS: Hematocrit (blood only) 37.6 % (42-52); Hemoglobin 12.3 g/dL (14.0-18.0); Mean Corpuscular Hemoglobin 30.8 pg (25-34); Mean Corpuscular Hgb Conc 32.7 g/dL (32-36); Mean Platelet Volume 10.4 fL (7.4-10.4); Platelet Count 297 K/uL (130-400); RDW Coefficient of Variation 13.7 % (11.5-14.5); RDW Standard Deviation 47.2 fL (36.4-46.3); White Blood Count 16.23 K/uL (4.8-10.8)
[2020-01-09 04:33] LABS: ALC (manual) 1.49 K/uL (1.2-3.4); ANC (manual) 12.43 K/uL (1.4-6.5); Lymphocytes # (manual) 1.49 K/uL (1.2-3.4); Lymphocytes % (manual) 9.2 %; Monocytes # (manual) 0.81 K/uL (0.11-0.59); Myelocytes # (manual) 1.49 K/uL (0-0); Myelocytes % (manual) 9.2 %; Neutrophils # (manual) 12.43 K/uL (1.4-6.5); Neutrophils % (manual) 76.6 %
[2020-01-09 04:43] LABS: Albumin Globulin Ratio 0.4 (0.9-2); Albumin Level 1.9 gm/dl (3.4-5.0); BUN Creatinine Ratio 33.3 (10-20); Bilirubin,Total 0.5 mg/dl (0.2-1); Calcium 9.3 mg/dl (8.5-10.1); Creatinine Clr Calc Pharmacy 77.1 ml/min; Est GFR (African American) 101.6; Est GFR (Non-African American) 87.7; Globulin 4.5 gm/dl (2.5-4.0); Phosphorus 2.7 mg/dl (2.5-4.9); Total Protein 6.4 gm/dl (6.4-8.2)
[2020-01-09] MEDS: INSULIN ASPART 100 UNITS/ML 3 ML PEN SC SCH ×5 (04:44→20:46)
[2020-01-09 05:33] LABS: Potassium 3.6 mmol/L (3.5-5.1)
[2020-01-09 05:38] LABS: Magnesium 2.1 mg/dl (1.8-2.4)
[2020-01-09] MEDS ORDERED: POTASSIUM CHLORIDE 20 MEQ/15 ML UDC PO ONE (06:00)
[2020-01-09] MEDS: ALBUT/IPRATROP 3MG/0.5MG NEB 3 ML VIAL NEB SCH ×4 (07:12→19:58)
[2020-01-09 07:53] LABS: iSTAT Allen Test Pass; iSTAT Arterial Blood Gas HCO3 26 meg/L (19-24); iSTAT Arterial Blood Gas pCO2 33 mmHg (35-46); iSTAT Arterial Blood Gas pO2 67 mmHg (80-95); iSTAT Carbon Dioxide 27 mmol/L (24-31); iSTAT Site R Radial
[2020-01-09] MEDS: IMPACT LIQD 1.0 CAL 1,000 ML BAG NG PRN (08:13)
[2020-01-09] MEDS: VALPROATE SOD 250 MG in DEXTROSE 5% 50 ML IV SCH (08:13)
[2020-01-09] MEDS: ASPIRIN 81 MG CHEW PO SCH (08:13)
[2020-01-09] MEDS: FAMOTIDINE 20 MG in SYRINGE 3 ML IV SCH ×2 (08:14→20:49)
[2020-01-09] MEDS: INSULIN GLARGINE SOLOSTAR 100 UNITS/ML 3 ML PEN SC SCH ×2 (08:15→20:46)
--- NOTE | 2020-01-09 09:51 | XRay Report ---
SINGLE VIEW CHEST CLINICAL HISTORY: Respiratory failure. FINDINGS: An AP, portable, upright chest radiograph is compared to study dated 01/08/2020. Endotrachea l and enteric tubes are unchanged in position. The heart is mildly enlarged noting atherosclerotic ca lcification of the thoracic aorta. There is pulmonary vascular congestion. Consolidation is seen at t he lung bases, left greater than right. Trace pleural effusions are noted. No pneumothorax is seen. T he skeletal structures are osteopenic. The bony thorax is grossly intact. IMPRESSION: 1. Stable lines and tubes. 2. Cardiomegaly with mild pulmonary vascular congestion. 3. Airspace consolidation is noted at the lung bases, left greater than right. 4. Trace pleural effusions ACT 112: Negative or not required by law. Electronically signed by: Surinder Marroquin M.D. 01/09/2020 9:50 AM
--- NOTE | 2020-01-09 11:13 | Critical Care Progress Note ---
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 Dementia: Alzheimer's -Per neurology it appears his neurological baseline was tracking with his eyes beyond that he was largely unresponsive to commands Chronic narcotic use -Fentanyl infusion -Attempt to wean propofol away and use single agent for sedation/analgesia Acute encephalopathy: Mixed -Reviewed psychiatry notes RASS 0 Resp: Acute hypoxic respiratory failure -Intubation mechanical ventilation: Day 5 -Bronchoscopy -Yeast found on bronchoscopy -Decreasing secretion burden improved compared to yesterday -Continued bilateral infiltrates on chest x-ray CV: Coronary artery disease Peripheral vascular disease -As evidenced by bypass grafts on KUB -81 mg aspirin daily Fluids/Renal: Acute kidney injury: Improving Hypernatremia: Improving: Down to 146 Hyperchloremic metabolic acidosis: Improving -Free water deficit: Resolved -Free water administration via NG tube: -Tube feeding at goal with normal free water flush Hypermagnesemia Lactic acidosis ID: Gram-negative bacilli bacteremia: E. coli: Nia quinolone resistance -De-escalate to ceftriaxone IV for 10-day duration, this is broader spectrum than Ancef until we can rule out any biliary pathology Gram-negative bacilli urinary tract infection -E. coli isolated from urine in November 26, 2018, April 28, 2019: Nia quinolone resistant, May 21, 2019: Nia quinolone resistant as well as July 05, 2019: Fluoroquinolone resistant Bio fire respiratory panel: Carbone negative COVID PCR negative Legionella antigen negative GI/Nutrition: Impact at goal Transaminitis: New onset -Acute hepatitis panel: Hepatitis B and C- -Enlarged common bile duct no evidence of Brar sign. -Lipase: Within normal limits, triglycerides: 401, GGT: 40 Protein calorie malnutrition -Chronically low protein and albumin levels and cachexia Heme: Anemia: Megaloblastic DVT prophylaxis: Lovenox 40 daily Endocrine: ICU hyperglycemia protocol Hyperglycemia: Increasing Lantus Vascular access: Peripheral IVs Code Status: Full -We will follow-up with brother and palliative care service. Disposition: ICU (2) Extrapyramidal and movement disorder: (3) Chronic prescription opiate use: (4) Peripheral vascular disease: (5) Seizure disorder: (6) Urinary tract infection: (7) Acute kidney injury: (8) Pneumonia: (9) Sepsis associated hypotension: (10) Hypernatremia: (11) Schizophrenia: (12) Acute encephalopathy: Admission and Anticipated Discharge Date Admission Date: January 04, 2020 Supervising Physician Co-Signing Physician Notes I had discussion with the patient's brother today and updated him of the current status as well as discussing treatment options. In attempting to clarify the surrogate decision maker issues he reports his brother previously had a female confidant who was the power of [employer] developer. He does not know where this woman is located aside from living in [place]. He reports she stopped caring for him in 2016 at which time the nursing facilities started contacting him for questions and consent regarding his care. He reports the patient had 1 adult daughter who he believes is living in [place]. He has not had contact with the patient's daughter in approximately 15 years and does not know how to locate her. Looking through prior records it does appear that Ole has been utilized as the primary decision maker, and appears to have his brother's best interests in mo nd. After our discussion today I understand that we will continue current treatment hoping for a window to proceed with extubation, this would be considered a terminal extubation, and should the patient's fail and experience respiratory insufficiency his care would transition immediately to comfort care and allow the natural dying process to continue. I also informed the patient's brother that our staff needed to confirm some of the reported data. Based off of multiple consultants, current physical exam findings I believe the patient is in an end-stage condition with regards to advanced dementia. I believe it reasonable to consider hospice and palliative care and proceed with terminal extubation and limiting her heroic efforts. Subjective No overnight events. This morning patient had a partial sedation vacation as additional medications had to be administered which could not be run with sedation. Patient appeared to tolerate this. Review of Systems Review of Systems: Unobtainable due to endotracheal tube Physical Exam Physical Exam: General: Lethargic, occasionally opens eyes and tracks with stimulation Skin: Warm, dry, Head: Atraumatic Ears, nose, mouth and throat: airway obscured by endotracheal tube Cardiovascular: Normal peripheral perfusion Respiratory: no respiratory distress, coarse sounds bilaterally Gastrointestinal: Non distended Results & Data Results & Data ([facility]) Vital Signs (Past 12 Hours) Vital Signs Temp Pulse Resp BP Pulse Ox 01/09/20 10:21 96 H 152/96 H 94 01/09/20 09:20 103 H 167/96 H 95 01/09/20 08:20 85 128/84 95 01/09/20 08:14 88 22 93 01/09/20 07:20 37.1 C 92 H 156/96 H 94 01/09/20 06:00 122/83 95 01/09/20 05:19 99 H 190/108 H 95 01/09/20 05:00 94 H 27 H 93 01/09/20 04:20 99 H 168/117 H 95 01/09/20 04:00 97 H 97 01/09/20 03:19 87 144/80 H 93 01/09/20 03:00 85 92 01/09/20 02:19 86 119/66 01/09/20 02:12 90 27 H 94 01/09/20 02:00 87 92 01/09/20 01:19 97 H 161/99 H 94 01/09/20 01:00 104 H 94 01/09/20 00:19 94 H 175/108 H 95 01/09/20 00:05 90 24 93 01/09/20 00:00 37 C 91 H 95 01/08/20 23:19 88 115/72 92 Laboratory Results 01/09/20 01/09/20 01/09/20 Range/Units 07:39 07:37 05:03 WBC (4.8-10.8) K/uL RBC (4.7-6.1) M/uL Hgb (14.0-18.0) g/dL Hct (42-52) % MCV (80-100) fL MCH (25-34) pg MCHC (32-36) g/dL RDW Std Deviation (36.4-46.3) fL RDW Coeff of Kasey (11.5-14.5) % Plt Count (130-400) K/uL MPV (7.4-10.4) fL Neutrophils % (Manual) % Lymphocytes % (Manual) % Monocytes % (Manual) % Myelocytes % (Man) % Neutrophils # (Manual) (1.4-6.5) K/uL Total Absolute Neuts (1.4-6.5) K/uL Lymphocytes # (Manual) (1.2-3.4) K/uL Total Abs Lymphocytes (1.2-3.4) K/uL Monocytes # (Manual) (0.11-0.59) K/uL Myelocytes # (Manual) (0-0) K/uL Sample Site R Radial POC pH 7.50 H (7.35-7.45) POC pCO2 33 L (35-46) mmHg POC pO2 67 L (80-95) mmHg POC HCO3 26 H (19-24) errol/L POC Total CO2 27 (24-31) mmol/L POC Base Excess 2.0 H (-9-1.8) errol/L POC ABG O2 Sat 95.0 (90-95) % Yves Test Pass O2 Delivery Device Ventilator POC O2 Rate 8 Minute Ventilation 10.4 Tidal Volume 450 PEEP 5 Sodium (136-145) mmol/L Potassium 3.6 (3.5-5.1) mmol/L Chloride (98-107) mmol/L Carbon Dioxide (21-32) mmol/L Anion Gap (3-11) BUN (7-18) mg/dl Creatinine (0.6-1.4) mg/dl Est Cr Clr Drug Dosing ml/min Est GFR ( Amer) Est GFR (Non-Af Amer) BUN/Creatinine Ratio (10-20) Glucose (70-99) mg/dl POC Glucose 215 H (70-99) mg/dl Calcium (8.5-10.1) mg/dl Phosphorus (2.5-4.9) mg/dl Magnesium 2.1 (1.8-2.4) mg/dl Total Bilirubin (0.2-1) mg/dl AST 70 H (15-37) U/L ALT (12-78) U/L Alkaline Phosphatase (45-117) U/L Total Protein (6.4-8.2) gm/dl Albumin (3.4-5.0) gm/dl Globulin (2.5-4.0) gm/dl Albumin/Globulin Ratio (0.9-2) Levetiracetam (12.0-46.0) mcg/mL Legionella Source Legionella Culture L. pneumophila DFA 01/09/20 01/09/20 01/09/20 Range/Units 04:41 03:49 03:49 WBC 16.23 H (4.8-10.8) K/uL RBC 4.00 L (4.7-6.1) M/uL Hgb 12.3 L (14.0-18.0) g/dL Hct 37.6 L (42-52) % MCV 94.0 (80-100) fL MCH 30.8 (25-34) pg MCHC 32.7 (32-36) g/dL RDW Std Deviation 47.2 H (36.4-46.3) fL RDW Coeff of Kasey 13.7 (11.5-14.5) % Plt Count 297 (130-400) K/uL MPV 10.4 (7.4-10.4) fL Neutrophils % (Manual) 76.6 % Lymphocytes % (Manual) 9.2 % Monocytes % (Manual) 5.0 % Myelocytes % (Man) 9.2 % Neutrophils # (Manual) 12.43 H (1.4-6.5) K/uL Total Absolute Neuts 12.43 H (1.4-6.5) K/uL Lymphocytes # (Manual) 1.49 (1.2-3.4) K/uL Total Abs Lymphocytes 1.49 (1.2-3.4) K/uL Monocytes # (Manual) 0.81 H (0.11-0.59) K/uL Myelocytes # (Manual) 1.49 H (0-0) K/uL Sample Site POC pH (7.35-7.45) POC pCO2 (35-46) mmHg POC pO2 (80-95) mmHg POC HCO3 (19-24) erorl/L POC Total CO2 (24-31) mmol/L POC Base Excess (-9-1.8) errol/L POC ABG O2 Sat (90-95) % Yves Test O2 Delivery Device POC O2 Rate Minute Ventilation Tidal Volume PEEP Sodium 140 (136-145) mmol/L Potassium (3.5-5.1) mmol/L Chloride 107 (98-107) mmol/L Carbon Dioxide 27 (21-32) mmol/L Anion Gap 6.0 (3-11) BUN 28 H (7-18) mg/dl Creatinine 0.85 (0.6-1.4) mg/dl Est Cr Clr Drug Dosing 77.1 ml/min Est GFR ( Amer) 101.6 Est GFR (Non-Af Amer) 87.7 BUN/Creatinine Ratio 33.3 H (10-20) Glucose 203 H (70-99) mg/dl POC Glucose 187 H (70-99) mg/dl Calcium 9.3 (8.5-10.1) mg/dl Phosphorus 2.7 (2.5-4.9) mg/dl Magnesium (1.8-2.4) mg/dl Total Bilirubin 0.5 (0.2-1) mg/dl AST (15-37) U/L ALT 124 H (12-78) U/L Alkaline Phosphatase 121 H (45-117) U/L Total Protein 6.4 (6.4-8.2) gm/dl Albumin 1.9 L (3.4-5.0) gm/dl Globulin 4.5 H (2.5-4.0) gm/dl Albumin/Globulin Ratio 0.4 L (0.9-2) Levetiracetam (12.0-46.0) mcg/mL Legionella Source Legionella Culture L. pneumophila DFA 01/08/20 01/08/20 01/08/20 Range/Units 23:30 20:35 15:20 WBC (4.8-10.8) K/uL RBC (4.7-6.1) M/uL Hgb (14.0-18.0) g/dL Hct (42-52) % MCV (80-100) fL MCH (25-34) pg MCHC (32-36) g/dL RDW Std Deviation (36.4-46.3) fL RDW Coeff of Kasey (11.5-14.5) % Plt Count (130-400) K/uL MPV (7.4-10.4) fL Neutrophils % (Manual) % Lymphocytes % (Manual) % Monocytes % (Manual) % Myelocytes % (Man) % Neutrophils # (Manual) (1.4-6.5) K/uL Total Absolute Neuts (1.4-6.5) K/uL Lymphocytes # (Manual) (1.2-3.4) K/uL Total Abs Lymphocytes (1.2-3.4) K/uL Monocytes # (Manual) (0.11-0.59) K/uL Myelocytes # (Manual) (0-0) K/uL Sample Site POC pH (7.35-7.45) POC pCO2 (35-46) mmHg POC pO2 (80-95) mmHg POC HCO3 (19-24) errol/L POC Total CO2 (24-31) mmol/L POC Base Excess (-9-1.8) errol/L POC ABG O2 Sat (90-95) % Yves Test O2 Delivery Device POC O2 Rate Minute Ventilation Tidal Volume PEEP Sodium (136-145) mmol/L Potassium (3.5-5.1) mmol/L Chloride (98-107) mmol/L Carbon Dioxide (21-32) mmol/L Anion Gap (3-11) BUN (7-18) mg/dl Creatinine (0.6-1.4) mg/dl Est Cr Clr Drug Dosing ml/min Est GFR ( Amer) Est GFR (Non-Af Amer) BUN/Creatinine Ratio (10-20) Glucose (70-99) mg/dl POC Glucose 177 H 243 H 240 H (70-99) mg/dl Calcium (8.5-10.1) mg/dl Phosphorus (2.5-4.9) mg/dl Magnesium (1.8-2.4) mg/dl Total Bilirubin (0.2-1) mg/dl AST (15-37) U/L ALT (12-78) U/L Alkaline Phosphatase (45-117) U/L Total Protein (6.4-8.2) gm/dl Albumin (3.4-5.0) gm/dl Globulin (2.5-4.0) gm/dl Albumin/Globulin Ratio (0.9-2) Levetiracetam (12.0-46.0) mcg/mL Legionella Source Legionella Culture L. pneumophila [facility] 01/05/20 Range/Units 06:35 WBC (4.8-10.8) K/uL RBC (4.7-6.1) M/uL Hgb (14.0-18.0) g/dL Hct (42-52) % MCV (80-100) fL MCH (25-34) pg MCHC (32-36) g/dL RDW Std Deviation (36.4-46.3) fL RDW Coeff of Kasey (11.5-14.5) % Plt Count (130-400) K/uL MPV (7.4-10.4) fL Neutrophils % (Manual) % Lymphocytes % (Manual) % Monocytes % (Manual) % Myelocytes % (Man) % Neutrophils # (Manual) (1.4-6.5) K/uL Total Absolute Neuts (1.4-6.5) K/uL Lymphocytes # (Manual) (1.2-3.4) K/uL Total Abs Lymphocytes (1.2-3.4) K/uL Monocytes # (Manual) (0.11-0.59) K/uL Myelocytes # (Manual) (0-0) K/uL Sample Site POC pH (7.35-7.45) POC pCO2 (35-46) mmHg POC pO2 (80-95) mmHg POC HCO3 (19-24) errol/L POC Total CO2 (24-31) mmol/L POC Base Excess (-9-1.8) errol/L POC ABG O2 Sat (90-95) % Yves Test O2 Delivery Device POC O2 Rate Minute Ventilation Tidal Volume PEEP Sodium (136-145) mmol/L Potassium (3.5-5.1) mmol/L Chloride (98-107) mmol/L Carbon Dioxide (21-32) mmol/L Anion Gap (3-11) BUN (7-18) mg/dl Creatinine (0.6-1.4) mg/dl Est Cr Clr Drug Dosing ml/min Est GFR ( Amer) Est GFR (Non-Af Amer) BUN/Creatinine Ratio (10-20) Glucose (70-99) mg/dl POC Glucose (70-99) mg/dl Calcium (8.5-10.1) mg/dl Phosphorus (2.5-4.9) mg/dl Magnesium (1.8-2.4) mg/dl Total Bilirubin (0.2-1) mg/dl AST (15-37) U/L ALT (12-78) U/L Alkaline Phosphatase (45-117) U/L Total Protein (6.4-8.2) gm/dl Albumin (3.4-5.0) gm/dl Globulin (2.5-4.0) gm/dl Albumin/Globulin Ratio (0.9-2) Levetiracetam 29.5 (12.0-46.0) mcg/mL Legionella Source Cancelled Legionella Culture Cancelled L. pneumophila DFA Cancelled Coding Level of Care Code Critical Care 1st 30-74 mins Diagnoses Acute respiratory failure with hypoxia J96.01 Extrapyramidal and movement disorder G25.9 Chronic prescription opiate use Z79.891 Peripheral vascular disease I73.9 Seizure disorder G40.909 Urinary tract infection N39.0 Acute kidney injury N17.9 Pneumonia J18.9 Sepsis associated hypotension A41.9; I95.9 Hypernatremia E87.0 Schizophrenia F20.9 Acute encephalopathy G93.40 Time Spent (min) 70 Comment I have personally spent 70 minutes of critical care time in the direct management of this patient. This is a life/limb threatening event. This includes time spent evaluating patient, direct bedside care, chart review, placing orders, interpretation of diagnostic studies, discussion with consultants, patient, and/or family members regarding treatment decisions, as well as other required patient management activities. This time is exclusive of all separately billable procedures, and teaching time and separate from and in addition to any other critical care service time.
[2020-01-09] MEDS: cefTRIAXone SODIUM 1,000 MG in DEXTROSE 5% 50 ML IV SCH (12:34)
[2020-01-09] MEDS: DIVALPROEX SODIUM SPRINKLE 125 MG CAP PO SCH ×2 (14:14→20:48)
[2020-01-09] MEDS: propofoL 1,000 MG/100 ML VIAL IV SCH (14:15)
[2020-01-09] MEDS: ENOXAPARIN INJ 40 MG/0.4 ML SYR SQ SCH (15:03)
--- NOTE | 2020-01-09 15:18 | Hospitalist Progress Note ---
Date of Service January 09, 2020 Assessment & Plan (1) Sepsis associated hypotension: gram negatives in blood and urine growing quinalone restant E Coli Hypotension responded to IV fluids antibiotics streamlined to Cefepime (2) Acute respiratory failure with hypoxia: Pt intubated and ventilated, managed by icu team (3) Pneumonia: Elevated procalcitonin and bilateral opacities on chest x-ray Continue broad-spectrum antibiotics as above. Aspiration vs. Health-care acquired (in long term setting). urine cultures supports urinary source, but CXR also persists with basilar changes (4) Urinary tract infection: Will continue menjivar catheter at present due need to measure UO with sepsis. (5) Acute kidney injury: Suspected prerenal due to acute infection, dehydration (poor oral intake) and meloxicam use. Holding meloxicam. Continue IV fluid replacement as below. improving hypernatremia. (6) Hypernatremia: Increased overnight due to NSS given as boluses in ER and to some extent LR maintenance. Unlikely DI given no polyuria noted. Water deficit 2.7L Switch fluids to D5W 150 ml/hr Repeat BMP serially throughout the day (7) Altered mental state: metabolic encephalopathy CT head negative for acute intracranial abnormality EEG unremarkable. neurology feels may stop Keppra and eval for clinical changes, no immediate need for antiepileptics anti-psychotics and opiates but will start at lower dose and be guided by ps ychiatry evaluation as above (8) Schizoaffective disorder, chronic condition: previously taking both Seroquel 100 mg twice daily (although notably on Seroquel 150mg TID in 2015) and haloperidol 2mg PO BID and 25 mg IM monthly. Consult psychiatry did not feel that delirium is related to his psychotropic medications. Recommending delirium protocol. Agreeing with holding venlafaxine but reinstituting it as soon as possible. (9) Psychosis: now that he is intubated. Unable to determine delusion or hallucinations given dementia and current cognitive state. Haloperidol as needed (10) Dementia: Noted history of stroke with old left cerebral infarct. Although Alzh eimer's noted on prior problem list I suspect his prior stroke and medication are likely contributory. (11) Coronary artery disease: Unclear history of this. No prior stents or CABG Echocardiogram performed 01/03 shows normal EF, severe aortic stenosis. (12) Diabetes: HbA1C 6.6 Continue to hold out patient Lantus dosing while NPO Continue Novolog correction factor for now. (13) Hyperlipidemia: Hold simvastatin while NPO (14) GERD (gastroesophageal reflux disease): Switch omeprazole PO 20mg QAM to famotidine 20mg IV daily while NPO (15) Chronic prescription opiate use: Fentanyl patch removed on admission On chronic opiates for right foot and right hand pain. Also taking Meloxicam 15mg QAM and [place] Q6H OFE as per prior documentation Possible overdose causing lethargy on admission in setting of CORY (16) Peripheral vascular disease: Noted history of this. Not on antiplatelets are noted above. Holding simvastatin while NPO and lethargic. (17) Chronic gout: Will hold allopurinol while unable to take PO meds (18) Seizure disorder: Valproic acid and Keppra levels ordered (although notably these have previously been normal or low). Continue IV valproic acid and stop Keppra per neurology recommendations EEG - non-seizure activity noted despite head tremor during EEG. Very mild generalized slowing represents a very mild encephalopathy. 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 Suspect from prior stroke in setting of chronic anti-psychotic use. Consult neurology - discussed with Dr Landa and recommend patient is seen tomorrow after another day of medical optimization and psychiatry review of his outpatient medication regimen. (21) Depression: Continue venlafaxine once patient able to take PO meds (22) DVT prophylaxis: Heparin 5000 units SQ Q8H Family meeting with palliative care on 01/06 Brother is uncertain about changing code status and ongoing care decisions Per director oracle note, possibly moving towards terminal extubation Admission and Anticipated Discharge Date Admission Date: January 04, 2020 Subjective Patient is intubated and sedated. Per nursing, there has been no change in his level of interaction. Review of Systems Review of Systems: Unable to obtain full ROS due to intubation/sedation status Physical Exam Constitutional: WD/WN, vitals as above Eyes: normal visual honeycutt by confrontation and + anicteric sclerae Neck: normal visual inspection and trachea midline Respiratory: normal respiratory effort, lungs clear to auscultation Cardiovascular: Rate/Rhythm: regular rate and regular rhythm Extremities: + edema (generalized) Gastrointestinal (Abdomen): Inspection/Auscultation: abdomen not distended Percussion/Palpation: abdomen soft; abdomen nontender Musculoskeletal: Head/Neck/Chest: normocephalic and head atraumatic Skin: no rashes, warm and dry Neurologic: + obtunded; + not awake Speech / Cognition: no anomia Psychiatric: A+Ox3, euthymic affect Orientation: + not alert and + uncooperative Affect: + blunted affect Results & Data Results & Data ([facility]) Vital Signs (Past 12 Hours) Vital Signs Temp Pulse Resp BP Pulse Ox 01/09/20 14:05 82 20 95 01/09/20 13:20 86 106/61 96 01/09/20 12:38 36.9 C 97 H 134/80 93 01/09/20 11:59 89 22 94 01/09/20 11:19 89 118/78 93 01/09/20 10:21 96 H 152/96 H 94 01/09/20 09:20 103 H 167/96 H 95 01/09/20 08:20 85 128/84 95 01/09/20 08:14 88 22 93 01/09/20 07:20 37.1 C 92 H 156/96 H 94 01/09/20 06:00 122/83 95 01/09/20 05:19 99 H 190/108 H 95 01/09/20 05:00 94 H 27 H 93 01/09/20 04:20 99 H 168/117 H 95 01/09/20 04:00 97 H 97 01/09/20 03:19 87 144/80 H 93 PG Care Time/CCT Total # of Minutes Spent Total Time Spent with Patient: Total time spent is greater than 50% in coordination of care (as documented) at patient's floor/unit and/or counseling patient: Coding Level of Care Code 36457 Subseq Hosp Care Lvl 3 Diagnoses Sepsis associated hypotension A41.9; I95.9 Acute respiratory failure with hypoxia J96.01 Pneumonia J18.9 Urinary tract infection N39.0 Acute kidney injury N17.9 Hypernatremia E87.0 Altered mental state R41.82 Schizoaffective disorder, chronic condition F25.8 Psychosis F29 Dementia F03.90 Coronary artery disease I25.10 Diabetes E11.9 Hyperlipidemia E78.5 GERD (gastroesophageal reflux disease) K21.9 Chronic prescription opiate use Z79.891 Peripheral vascular disease I73.9 Chronic gout [id number] Seizure disorder G40.909 Muscle weakness M62.81 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
[2020-01-09] MEDS: fentaNYL DRIP 1,250 MCG/250 ML BAG IV SCH (16:11)
[2020-01-10] MEDS: INSULIN ASPART 100 UNITS/ML 3 ML PEN SC SCH ×6 (00:39→20:35)
[2020-01-10 04:25] LABS: Hematocrit (blood only) 35.6 % (42-52); Mean Corpuscular Hemoglobin 30.8 pg (25-34); Mean Corpuscular Hgb Conc 33.7 g/dL (32-36); Mean Corpuscular Volume 91.5 fL (80-100); Mean Platelet Volume 10.2 fL (7.4-10.4); Nucleated RBC # (auto) 0.04 K/uL (0-0); Nucleated RBC % (auto) 0.2 %; Platelet Count 329 K/uL (130-400); RDW Coefficient of Variation 13.9 % (11.5-14.5); RDW Standard Deviation 45.8 fL (36.4-46.3); Red Blood Count 3.89 M/uL (4.7-6.1)
[2020-01-10 04:46] LABS: Albumin Level 1.9 gm/dl (3.4-5.0); BUN Creatinine Ratio 41.1 (10-20); Calcium 9.3 mg/dl (8.5-10.1); Creatinine Clr Calc Pharmacy 93.6 ml/min; Est GFR (Non-African American) 94.9; Potassium 3.8 mmol/L (3.5-5.1)
[2020-01-10 04:49] LABS: Albumin Globulin Ratio 0.4 (0.9-2); Bilirubin,Total 0.4 mg/dl (0.2-1); Globulin 4.4 gm/dl (2.5-4.0); Total Protein 6.3 gm/dl (6.4-8.2)
[2020-01-10 04:57] LABS: ALC (manual) 2.48 K/uL (1.2-3.4); ANC (manual) 12.68 K/uL (1.4-6.5); Lymphocytes # (manual) 2.48 K/uL (1.2-3.4); Lymphocytes % (manual) 14.7 %; Metamyelocytes # (manual) 0.15 K/uL (0-0); Metamyelocytes % (manual) 0.9 %; Monocytes # (manual) 1.01 K/uL (0.11-0.59); Myelocytes # (manual) 0.57 K/uL (0-0); Myelocytes % (manual) 3.4 %; Neutrophils # (manual) 12.68 K/uL (1.4-6.5); Polychromasia 1+
[2020-01-10 05:58] LABS: iSTAT Allen Test Pass; iSTAT Art Bld Gas pCO2 Correct 32 mmHg (35-46); iSTAT Art Bld Gas pH Corrected 7.534 (7.35-7.45); iSTAT Arterial Blood Gas HCO3 27 meg/L (19-24); iSTAT Arterial Blood Gas pCO2 32 mmHg (35-46); iSTAT Arterial Blood Gas pH 7.54 (7.35-7.45); iSTAT Arterial Blood Gas pO2 75 mmHg (80-95); iSTAT Arterial Blood Gas pO2 C 75; iSTAT Carbon Dioxide 28 mmol/L (24-31); iSTAT FiO2 30 %; iSTAT Hematocrit 33 % (42-52); iSTAT Hemoglobin 11.2 g/dl (14.0-18.0); iSTAT Potassium 3.8 mmol/L (3.3-5.0); iSTAT Site L Radial; iSTAT Sodium 135 mmol/L (135-144)
[2020-01-10] MEDS ORDERED: POTASSIUM CHLORIDE 20 MEQ/15 ML UDC PO ONE (06:45)
[2020-01-10] MEDS: ALBUT/IPRATROP 3MG/0.5MG NEB 3 ML VIAL NEB SCH ×4 (07:29→20:46)
--- NOTE | 2020-01-10 07:31 | XRay Report ---
XR chest 1V portable CLINICAL HISTORY: Respiratory failure COMPARISON STUDY: 01/09/2020 FINDINGS: The cardiac and mediastinal contours remain stable. There is a nasogastric tube which passe s into the stomach. There is an endotracheal tube positioned 25 mm above the miguel. There is persist ent vascular prominence. There is stable bibasilar airspace opacities.[ IMPRESSION: 1. Persistent mild pulmonary vascular congestion 2. Persistent basilar airspace opacities 3. Endotracheal tube 2.5 cm above the miguel. ACT 112: Negative or not required by law. Electronically signed by: Carmelo Blankenship M.D. 01/10/2020 7:30 AM
[2020-01-10] MEDS: propofoL 1,000 MG/100 ML VIAL IV SCH ×2 (08:00→20:36)
[2020-01-10] MEDS: ASPIRIN 81 MG CHEW PO SCH (08:22)
[2020-01-10] MEDS: INSULIN GLARGINE SOLOSTAR 100 UNITS/ML 3 ML PEN SC SCH ×2 (08:23→20:35)
[2020-01-10] MEDS: DIVALPROEX SODIUM SPRINKLE 125 MG CAP PO SCH ×3 (08:24→20:36)
[2020-01-10] MEDS: FAMOTIDINE 20 MG in SYRINGE 3 ML IV SCH ×2 (09:36→20:36)
[2020-01-10] MEDS: cefTRIAXone SODIUM 1,000 MG in DEXTROSE 5% 50 ML IV SCH (12:17)
--- NOTE | 2020-01-10 12:30 | Critical Care Progress Note ---
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 Dementia: Alzheimer's -Per neurology it appears his neurological baseline was tracking with his eyes beyond that he was largely unresponsive to commands Chronic narcotic use -Fentanyl infusion -Attempt to wean propofol away and use single agent for sedation/analgesia Acute encephalopathy: Mixed -Reviewed psychiatry notes RASS 0 Resp: Acute hypoxic respiratory failure -Intubation mechanical ventilation: Day 6 -Bronchoscopy -Yeast found on bronchoscopy -Continued secretion burden, concerning for continued aspiration -Improving bilateral infiltrates on chest x-ray Primary respiratory alkalosis with secondary metabolic alkalosis -SIMV respiratory rate of 6 tidal volume 450 pressure support 5, FiO2 30% -Patient still with mild to moderate secretion -I am deferring extubation until Saturday when we can have a joint discussion with palliative care, case management, the patient's brother and have most clarity with direction moving forward. CV: Coronary artery disease Peripheral vascular disease -As evidenced by bypass grafts on KUB -81 mg aspirin daily Fluids/Renal: Acute kidney injury: Resolved Hypernatremia: Resolved Hyperchloremic metabolic acidosis: Resolved -Free water deficit: Resolved Hypermagnesemia: Resolved Lactic acidosis: Resolved ID: Gram-negative bacilli bacteremia: E. coli: Nia quinolone resistance -De-escalate to ceftriaxone IV for 10-day duration, this is broader spectrum than Ancef until we can rule out any biliary pathology Gram-negative bacilli urinary tract infection -E. coli isolated from urine in November 26, 2018, April 28, 2019: Nia quinolone resistant, May 21, 2019: Nia quinolone resistant as well as July 05, 2019: Fluoroquinolone resistant [facility] respiratory panel: Carbone negative COVID PCR negative Legionella antigen negative GI/Nutrition: Impact at goal Transaminitis: New onset -Acute hepatitis panel: Hepatitis B and C- -Enlarged common bile duct no evidence of Brar sign. -Lipase: Within normal limits, triglycerides: 401, GGT: 40 Protein calorie malnutrition -Chronically low protein and albumin levels and cachexia Heme: Anemia: Megaloblastic DVT prophylaxis: Lovenox 40 daily Endocrine: ICU hyperglycemia protocol Hyperglycemia: Increasing Lantus Vascular access: Peripheral IVs Code Status: Full -We will follow-up with brother and palliative care service. Disposition: ICU (2) Extrapyramidal and movement disorder: (3) Chronic prescription opiate use: (4) Peripheral vascular disease: (5) Seizure disorder: (6) Urinary tract infection: (7) Acute kidney injury: (8) Pneumonia: (9) Sepsis associated hypotension: (10) Hypernatremia: (11) Schizophrenia: (12) Acute encephalopathy: Admission and Anticipated Discharge Date Admission Date: January 04, 2020 Subjective No overnight events Review of Systems Review of Systems: Unobtainable due to endotracheal tube Physical Exam Physical Exam: General: Lethargic, occasionally opens eyes and tracks with stimulation Skin: Warm, dry, Head: Atraumatic Ears, nose, mouth and throat: airway obscured by endotracheal tube Cardiovascular: Normal peripheral perfusion Respiratory: no respiratory distress, coarse sounds bilaterally Gastrointestinal: Non distended Results & Data Results & Data ([facility]) Vital Signs (Past 12 Hours) Vital Signs Temp Pulse Resp BP Pulse Ox 01/10/20 11:30 90 26 H 96 01/10/20 11:20 91 H 147/96 H 96 01/10/20 10:20 88 117/77 96 01/10/20 09:20 94 H 168/98 H 97 01/10/20 08:20 37.1 C 92 H 140/91 96 01/10/20 08:05 86 20 97 01/10/20 07:20 85 119/80 97 01/10/20 07:17 81 128/89 99 01/10/20 06:00 37 C 97 H 96 01/10/20 05:20 82 89/69 L 95 01/10/20 05:00 87 93 01/10/20 04:55 91 H 18 93 01/10/20 04:20 94 H 141/98 H 94 01/10/20 04:00 89 93 01/10/20 03:20 94 H 128/85 92 01/10/20 03:00 89 94 01/10/20 02:20 94 H 154/119 H 95 01/10/20 02:00 91 H 97 01/10/20 01:50 86 19 95 01/10/20 01:20 90 119/81 94 01/10/20 01:00 92 H 94 Laboratory Results 01/10/20 01/10/20 01/10/20 Range/Units 08:17 05:44 04:11 WBC (4.8-10.8) K/uL RBC (4.7-6.1) M/uL Hgb (14.0-18.0) g/dL POC Hgb 11.2 L (14.0-18.0) g/dl Hct (42-52) % POC Hct 33 L (42-52) % MCV (80-100) fL MCH (25-34) pg MCHC (32-36) g/dL RDW Std Deviation (36.4-46.3) fL RDW Coeff of Kasey (11.5-14.5) % Plt Count (130-400) K/uL MPV (7.4-10.4) fL Absolute Nucleated RBC (0-0) K/uL Nucleated RBC % (auto) % Neutrophils % (Manual) % Lymphocytes % (Manual) % Monocytes % (Manual) % Metamyelocytes % (Man) % Myelocytes % (Man) % Neutrophils # (Manual) (1.4-6.5) K/uL Total Absolute Neuts (1.4-6.5) K/uL Lymphocytes # (Manual) (1.2-3.4) K/uL Total Abs Lymphocytes (1.2-3.4) K/uL Monocytes # (Manual) (0.11-0.59) K/uL Metamyelocytes # (Man) (0-0) K/uL Myelocytes # (Manual) (0-0) K/uL Polychromasia Sample Site L Radial POC pH 7.54 H* (7.35-7.45) POC pCO2 32 L (35-46) mmHg POC pO2 75 L (80-95) mmHg POC HCO3 27 H (19-24) errol/L POC Total CO2 28 (24-31) mmol/L POC Base Excess 5.0 H (-9-1.8) errol/L ABG pH (Temp Correct) 7.534 H* (7.35-7.45) ABG pCO2 (Temp Corrct 32 L (35-46) mmHg POC ABG pO2 at Pt Temp 75 POC ABG O2 Sat 97.0 H (90-95) % Yves Test Pass O2 Delivery Device Ventilator POC O2 Rate 8 Minute Ventilation 9.81 POC FiO2 30 % Tidal Volume 450 PEEP 5 Pressure Support Vent 10 POC Sodium 135 (135-144) mmol/L Sodium 140 (136-145) mmol/L POC Potassium 3.8 (3.3-5.0) mmol/L Potassium 3.8 (3.5-5.1) mmol/L Chloride 105 (98-107) mmol/L Carbon Dioxide 27 (21-32) mmol/L Anion Gap 8.0 (3-11) BUN 29 H (7-18) mg/dl Creatinine 0.70 (0.6-1.4) mg/dl Est Cr Clr Drug Dosing 93.6 ml/min Est GFR ( Amer) 110.0 Est GFR (Non-Af Amer) 94.9 BUN/Creatinine Ratio 41.1 H (10-20) Glucose 181 H (70-99) mg/dl POC Glucose 196 H (70-99) mg/dl Calcium 9.3 (8.5-10.1) mg/dl Total Bilirubin 0.4 (0.2-1) mg/dl AST 68 H (15-37) U/L ALT 116 H (12-78) U/L Alkaline Phosphatase 116 (45-117) U/L Total Protein 6.3 L (6.4-8.2) gm/dl Albumin 1.9 L (3.4-5.0) gm/dl Globulin 4.4 H (2.5-4.0) gm/dl Albumin/Globulin Ratio 0.4 L (0.9-2) 01/10/20 01/10/20 01/09/20 Range/Units 04:11 00:33 20:37 WBC 16.90 H (4.8-10.8) K/uL RBC 3.89 L (4.7-6.1) M/uL Hgb 12.0 L (14.0-18.0) g/dL POC Hgb (14.0-18.0) g/dl Hct 35.6 L (42-52) % POC Hct (42-52) % MCV 91.5 (80-100) fL MCH 30.8 (25-34) pg MCHC 33.7 (32-36) g/dL RDW Std Deviation 45.8 (36.4-46.3) fL RDW Coeff of Kasey 13.9 (11.5-14.5) % Plt Count 329 (130-400) K/uL MPV 10.2 (7.4-10.4) fL Absolute Nucleated RBC 0.04 H (0-0) K/uL Nucleated RBC % (auto) 0.2 % Neutrophils % (Manual) 75.0 % Lymphocytes % (Manual) 14.7 % Monocytes % (Manual) 6.0 % Metamyelocytes % (Man) 0.9 % Myelocytes % (Man) 3.4 % Neutrophils # (Manual) 12.68 H (1.4-6.5) K/uL Total Absolute Neuts 12.68 H (1.4-6.5) K/uL Lymphocytes # (Manual) 2.48 (1.2-3.4) K/uL Total Abs Lymphocytes 2.48 (1.2-3.4) K/uL Monocytes # (Manual) 1.01 H (0.11-0.59) K/uL Metamyelocytes # (Man) 0.15 H (0-0) K/uL Myelocytes # (Manual) 0.57 H (0-0) K/uL Polychromasia 1+ Sample Site POC pH (7.35-7.45) POC pCO2 (35-46) mmHg POC pO2 (80-95) mmHg POC HCO3 (19-24) errol/L POC Total CO2 (24-31) mmol/L POC Base Excess (-9-1.8) errol/L ABG pH (Temp Correct) (7.35-7.45) ABG pCO2 (Temp Corrct (35-46) mmHg POC ABG pO2 at Pt Temp POC ABG O2 Sat (90-95) % Yves Test O2 Delivery Device POC O2 Rate Minute Ventilation POC FiO2 % Tidal Volume PEEP Pressure Support Vent POC Sodium (135-144) mmol/L Sodium (136-145) mmol/L POC Potassium (3.3-5.0) mmol/L Potassium (3.5-5.1) mmol/L Chloride (98-107) mmol/L Carbon Dioxide (21-32) mmol/L Anion Gap (3-11) BUN (7-18) mg/dl Creatinine (0.6-1.4) mg/dl Est Cr Clr Drug Dosing ml/min Est GFR ( Amer) Est GFR (Non-Af Amer) BUN/Creatinine Ratio (10-20) Glucose (70-99) mg/dl POC Glucose 125 H 138 H (70-99) mg/dl Calcium (8.5-10.1) mg/dl Total Bilirubin (0.2-1) mg/dl AST (15-37) U/L ALT (12-78) U/L Alkaline Phosphatase (45-117) U/L Total Protein (6.4-8.2) gm/dl Albumin (3.4-5.0) gm/dl Globulin (2.5-4.0) gm/dl Albumin/Globulin Ratio (0.9-2) 01/09/20 01/09/20 Range/Units 16:06 12:31 WBC (4.8-10.8) K/uL RBC (4.7-6.1) M/uL Hgb (14.0-18.0) g/dL POC Hgb (14.0-18.0) g/dl Hct (42-52) % POC Hct (42-52) % MCV (80-100) fL MCH (25-34) pg MCHC (32-36) g/dL RDW Std Deviation (36.4-46.3) fL RDW Coeff of Kasey (11.5-14.5) % Plt Count (130-400) K/uL MPV (7.4-10.4) fL Absolute Nucleated RBC (0-0) K/uL Nucleated RBC % (auto) % Neutrophils % (Manual) % Lymphocytes % (Manual) % Monocytes % (Manual) % Metamyelocytes % (Man) % Myelocytes % (Man) % Neutrophils # (Manual) (1.4-6.5) K/uL Total Absolute Neuts (1.4-6.5) K/uL Lymphocytes # (Manual) (1.2-3.4) K/uL Total Abs Lymphocytes (1.2-3.4) K/uL Monocytes # (Manual) (0.11-0.59) K/uL Metamyelocytes # (Man) (0-0) K/uL Myelocytes # (Manual) (0-0) K/uL Polychromasia Sample Site POC pH (7.35-7.45) POC pCO2 (35-46) mmHg POC pO2 (80-95) mmHg POC HCO3 (19-24) errol/L POC Total CO2 (24-31) mmol/L POC Base Excess (-9-1.8) errol/L ABG pH (Temp Correct) (7.35-7.45) ABG pCO2 (Temp Corrct (35-46) mmHg POC ABG pO2 at Pt Temp POC ABG O2 Sat (90-95) % Yves Test O2 Delivery Device POC O2 Rate Minute Ventilation POC FiO2 % Tidal Volume PEEP Pressure Support Vent POC Sodium (135-144) mmol/L Sodium (136-145) mmol/L POC Potassium (3.3-5.0) mmol/L Potassium (3.5-5.1) mmol/L Chloride (98-107) mmol/L Carbon Dioxide (21-32) mmol/L Anion Gap (3-11) BUN (7-18) mg/dl Creatinine (0.6-1.4) mg/dl Est Cr Clr Drug Dosing ml/min Est GFR ( Amer) Est GFR (Non-Af Amer) BUN/Creatinine Ratio (10-20) Glucose (70-99) mg/dl POC Glucose 231 H 235 H (70-99) mg/dl Calcium (8.5-10.1) mg/dl Total Bilirubin (0.2-1) mg/dl AST (15-37) U/L ALT (12-78) U/L Alkaline Phosphatase (45-117) U/L Total Protein (6.4-8.2) gm/dl Albumin (3.4-5.0) gm/dl Globulin (2.5-4.0) gm/dl Albumin/Globulin Ratio (0.9-2) Coding Level of Care Code Critical Care 1st 30-74 mins Diagnoses Acute respiratory failure with hypoxia J96.01 Extrapyramidal and movement disorder G25.9 Chronic prescription opiate use Z79.891 Peripheral vascular disease I73.9 Seizure disorder G40.909 Urinary tract infection N39.0 Acute kidney injury N17.9 Pneumonia J18.9 Sepsis associated hypotension A41.9; I95.9 Hypernatremia E87.0 Schizophrenia F20.9 Acute encephalopathy G93.40 Time Spent (min) 40 Comment I have personally spent 40 minutes of critical care time in the direct management of this patient. This is a life/limb threatening event. This includes time spent evaluating patient, direct bedside care, chart review, placing orders, interpretation of diagnostic studies, discussion with consultants, patient, and/or family members regarding treatment decisions, as well as other required patient management activities. This time is exclusive of all separately billable procedures, and teaching time and separate from and in addition to any other critical care service time.
[2020-01-10] MEDS: ENOXAPARIN INJ 40 MG/0.4 ML SYR SQ SCH (14:20)
--- NOTE | 2020-01-10 16:12 | Hospitalist Progress Note ---
Date of Service January 10, 2020 Assessment & Plan (1) Sepsis associated hypotension: gram negatives in blood and urine growing quinalone resistant E Coli Hypotension responded to IV fluids antibiotics streamlined to Ceftriaxone (2) Acute respiratory failure with hypoxia: Pt intubated and ventilated, managed by icu team (3) Pneumonia: Elevated procalcitonin and bilateral opacities on chest x-ray Continue broad-spectrum antibiotics as above. Aspiration vs. Health-care acquired (in [place] [facility] setting). urine cultures supports urinary source, but CXR also persists with basilar changes, unimproved (4) Urinary tract infection: Will continue menjivar catheter at present due need to measure UO with sepsis. (5) Acute kidney injury: Suspected prerenal due to acute infection, dehydration (poor oral intake) and meloxicam use. Holding meloxicam. Continue IV fluid replacement as below. resolved hypernatremia. (6) Hypernatremia: Increased on admission due to NSS given as boluses in ER and to some extent LR maintenance. Unlikely DI given no polyuria noted. Resolved (7) Altered mental state: metabolic encephalopathy CT head negative for acute intracranial abnormality EEG unremarkable. neurology feels may stop Keppra and eval for clinical changes, no immediate need for antiepileptics anti-psychotics and opiates but will start at lower dose and be guided by psychiatry evaluation as above (8) Schizoaffective disorder, chronic condition: previously taking both Seroquel 100 mg twice daily (although notably on Seroquel 150mg TID in 2014) and haloperidol 2mg PO BID and 25 mg IM monthly. Consult psychiatry did not feel that delirium is related to his psychotropic medications. Recommending delirium protocol. Agreeing with holding venlafaxine but reinstituting it as soon as possible. (9) Psychosis: now that he is intubated. Unable to determine delusion or hallucinations given dementia and current cognitive state. Haloperidol as needed (10) Dementia: Noted history of stroke with old left cerebral infarct. Although Alzheimer's noted on prior problem list I suspect his prior stroke and medication are likely contributory. (11) Coronary artery disease: Unclear history of this. No prior stents or CABG Echocardiogram performed 01/03 shows normal EF, severe aortic stenosis. (12) Diabetes: HbA1C 6.6 Continue to hold out patient Lantus dosing while NPO Continue Novolog correction factor for now. (13) Hyperlipidemia: Hold simvastatin while NPO (14) GERD (gastroesophageal reflux disease): Switch omeprazole PO 20mg QAM to famotidine 20mg IV daily while NPO (15) Chronic prescription opiate use: Fentanyl patch removed on admission On chronic opiates for right foot and right hand pain. Also taking Meloxicam 15mg QAM and [place] Q6H OFE as per prior documentation Possible overdose causing lethargy on admission in setting of CORY (16) Peripheral vascular disease: Noted history of this. Not on antiplatelets are noted above. Holding simvastatin while NPO and lethargic. (17) Chronic gout: Will hold allopurinol while unable to take PO meds (18) Seizure disorder: Valproic acid and Keppra levels ordered (although notably these have previously been normal or low). Continue IV valproic acid and stop Keppra per neurology recommendations EEG - non-seizure activity noted despite head tremor during EEG. Very mild generalized slowing represents a very mild encephalopathy. 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 Suspect from prior stroke in setting of chronic anti-psychotic use. Consult neurology - discussed with Dr Landa and recommend patient is seen tomorrow after another day of medical optimization and psychiatry review of his outpatient medication regimen. (21) Depression: Continue venlafaxine once patient if able to return to PO meds (22) DVT prophylaxis: Heparin 5000 units SQ Q8H Family meeting with palliative care on 01/06 Brother is uncertain about changing code status and ongoing care decisions Per loader helper sorting yard note, possibly moving towards terminal extubation Admission and Anticipated Discharge Date Admission Date: January 04, 2020 Subjective Patient is intubated and sedated. Per nursing, there has been no change in his level of interaction. Review of Systems Review of Systems: Unable to obtain full ROS due to intubation/sedation status Physical Exam Constitutional: WD/WN, vitals as above Eyes: normal visual honeycutt by confrontation and + anicteric sclerae Neck: normal visual inspection and trachea midline Respiratory: normal respiratory effort, lungs clear to auscultation Cardiovascular: Rate/Rhythm: regular rate and regular rhythm Extremities: + edema (generalized) Gastrointestinal (Abdomen): Inspection/Auscultation: abdomen not distended Percussion/Palpation: abdomen soft; abdomen nontender Musculoskeletal: Head/Neck/Chest: normocephalic and head atraumatic Skin: no rashes, warm and dry Neurologic: + obtunded; + not awake Speech / Cognition: no anomia Psychiatric: A+Ox3, euthymic affect Orientation: + not alert and + uncooperative Affect: + blunted affect Results & Data Results & Data ([facility]) Vital Signs (Past 12 Hours) Vital Signs Temp Pulse Resp BP Pulse Ox 01/10/20 14:20 89 149/95 H 93 01/10/20 14:00 93 H 26 H 97 01/10/20 13:20 86 154/90 H 96 01/10/20 12:20 88 111/77 96 01/10/20 11:30 90 26 H 96 01/10/20 11:26 91 H 147/96 H 96 01/10/20 11:20 91 H 147/96 H 96 01/10/20 10:20 88 117/77 96 01/10/20 09:20 94 H 168/98 H 97 01/10/20 08:20 37.1 C 92 H 140/91 96 01/10/20 08:05 86 20 97 01/10/20 07:20 85 119/80 97 01/10/20 07:17 81 128/89 99 01/10/20 06:00 37 C 97 H 96 01/10/20 05:20 82 89/69 L 95 01/10/20 05:00 87 93 01/10/20 04:55 91 H 18 93 01/10/20 04:20 94 H 141/98 H 94 PG Care Time/CCT Total # of Minutes Spent Total Time Spent with Patient: Total time spent is greater than 50% in coordination of care (as documented) at patient's floor/unit and/or counseling patient: Coding Level of Care Code 79703 Subseq Hosp Care Lvl 3 Diagnoses Sepsis associated hypotension A41.9; I95.9 Acute respiratory failure with hypoxia J96.01 Pneumonia J18.9 Urinary tract infection N39.0 Acute kidney injury N17.9 Hypernatremia E87.0 Altered mental state R41.82 Schizoaffective disorder, chronic condition F25.8 Psychosis F29 Dementia F03.90 Coronary artery disease I25.10 Diabetes E11.9 Hyperlipidemia E78.5 GERD (gastroesophageal reflux disease) K21.9 Chronic prescription opiate use Z79.891 Peripheral vascular disease I73.9 Chronic gout [id number] Seizure disorder G40.909 Muscle weakness M62.81 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
[2020-01-10] MEDS: fentaNYL DRIP 1,250 MCG/250 ML BAG IV SCH (16:25)
[2020-01-10] MEDS: IMPACT LIQD 1.0 CAL 1,000 ML BAG NG PRN (20:52)
[2020-01-11] MEDS: INSULIN ASPART 100 UNITS/ML 3 ML PEN SC SCH ×6 (00:22→20:20)
[2020-01-11 05:30] LABS: Magnesium 1.7 mg/dl (1.8-2.4); Phosphorus 3.3 mg/dl (2.5-4.9)
[2020-01-11] MEDS: ALBUT/IPRATROP 3MG/0.5MG NEB 3 ML VIAL NEB SCH ×4 (07:14→18:16)
--- NOTE | 2020-01-11 07:40 | Hospitalist Progress Note ---
Date of Service January 11, 2020 Assessment & Plan (1) Sepsis associated hypotension: gram negatives in blood and urine growing quinalone resistant E Coli Hypotension resolvedresponded to IV fluids antibiotics streamlined to Ceftriaxone (2) Acute respiratory failure with hypoxia: Pt intubated and ventilated, managed by icu team Poor response attempted weaning trials concern for persistent ventilation required. Concerns for recurrent aspiration and protecting airway (3) Pneumonia: Elevated procalcitonin and bilateral opacities on chest x-ray Aspiration vs. Health-care acquired (in senior living setting). urine cultures supports urinary source, but CXR also persists with basilar changes, unimproved (4) Urinary tract infection: Will continue menjivar catheter at present due need to measure UO with sepsis. (5) Acute kidney injury: Suspected prerenal due to acute infection, dehydration (poor oral intake) and meloxicam use. Resolved Continue holding meloxicam. Patient is on tube feeds resolved hypernatremia. (6) Hypernatremia: Increased on admission due to NSS given as boluses in ER and to some extent LR maintenance. Unlikely DI given no polyuria noted. Resolved (7) Altered mental state: metabolic encephalopathy CT head negative for acute intracranial abnormality EEG unremarkable. neurology feels may stop Keppra and eval for clinical changes, no immediate need for antiepileptics anti-psychotics and opiates but will start at lower dose and be guided by psychiatry evaluation as above (8) Schizoaffective disorder, chronic condition: previously taking both Seroquel 100 mg twice daily (although notably on Seroquel 150mg TID in 2015) and haloperidol 2mg PO BID and 25 mg IM monthly. Consult psychiatry did not feel that delirium is related to his psychotropic medications. Agreeing with holding venlafaxine but reinstituting it as soon as possible. (9) Psychosis: He has remained intubated. Continue to be unable to determine delusion or hallucinations given dementia and current cognitive state. Haloperidol as needed (10) Dementia: Noted history of stroke with old left cerebral infarct. Although Alzheimer's noted on prior problem list I suspect his prior stroke and medication are likely contributory. (11) Coronary artery disease: Unclear history of this. No prior stents or CABG Echocardiogram performed 01/03 shows normal EF, severe aortic stenosis. (12) Diabetes: HbA1C 6.6 Continue to hold out patient Lantus dosing while NPO Continue Novolog correction factor for now. (13) Hyperlipidemia: Hold simvastatin while NPO (14) GERD (gastroesophageal reflux disease): Switch omeprazole PO 20mg QAM to famotidine 20mg IV daily while NPO (15) Chronic prescription opiate use: Fentanyl patch removed on admission On chronic opiates for right foot and right hand pain. Also taking Meloxicam 15mg QAM and [place] Q6H OFE as per prior documentation Possible overdose causing lethargy on admission in setting of CORY (16) Peripheral vascular disease: Noted history of this. Not on antiplatelets are noted above. Holding simvastatin while NPO and lethargic. (17) Chronic gout: Will hold allopurinol while unable to take PO meds (18) Seizure disorder: Valproic acid and Keppra levels ordered (although notably these have previously been normal or low). Continue IV valproic acid and stop Keppra per neurology recommendations EEG - non-seizure activity noted despite head tremor during EEG. Very mild generalized slowing represents a very mild encephalopathy. 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 Suspect from prior stroke in setting of chronic anti-psychotic use. Consult neurology - discussed with Dr Landa and recommend patient is seen tomorrow after another day of medical optimization and psychiatry review of his outpa tient medication regimen. (21) Depression: Continue venlafaxine once patient if able to return to PO meds (22) DVT prophylaxis: Heparin 5000 units SQ Q8H Patient's brother who is only next of kin we can identify remains unclear about his wishes on supporting this patient or not. Since were nearing her 1 week derek with intubation discussions need to be undertaken regarding tracheostomy. Attempt to coordinate with palliative care team case management [place] [facility] team and hospice team will be undertaken Admission and Anticipated Discharge Date Admission Date: January 04, 2020 Subjective pt is sedated on ventilator, he does open eyes to stimuli and stares at me, but does not follow any commands, reportedly did not do well with ventilation weaning over the weekend Review of Systems Review of Systems: Unobtainable due to endotracheal tube Physical Exam Physical Exam: The patient appeared to be with very little cognitive interaction Vital signs as documented. Lungs are coarse Cardiac exam, Rhythm is regular.. Systolic ejection murmur third Abdominal exam reveals normal bowel sounds, soft, no masses Extremities are nonedematous and both pedal pulses are normal. Neurologic exam is alert does not follow commands Patient is seriously ill requiring life support Results & Data Results & Data ([facility]) Vital Signs (Past 12 Hours) Vital Signs Pulse Resp BP Pulse Ox 01/11/20 05:22 79 14 99 01/11/20 02:34 81 18 100 01/11/20 00:00 80 01/10/20 23:00 92 H 99 01/10/20 22:21 93 H 146/89 H 100 01/10/20 22:11 88 29 H 100 01/10/20 22:00 90 100 01/10/20 21:20 80 122/75 99 01/10/20 21:03 90 21 97 01/10/20 21:00 90 99 01/10/20 20:20 92 H 136/82 96 01/10/20 20:00 90 96 PG Care Time/CCT Total # of Minutes Spent Total Time Spent with Patient: Total time spent is greater than 50% in coordination of care (as documented) at patient's floor/unit and/or counseling patient: Coding Level of Care Code 42148 Subseq Hosp Care Lvl 3 Diagnoses Sepsis associated hypotension A41.9; I95.9 Acute respiratory failure with hypoxia J96.01 Pneumonia J18.9 Urinary tract infection N39.0 Acute kidney injury N17.9 Hypernatremia E87.0 Altered mental state R41.82 Schizoaffective disorder, chronic condition F25.8 Psychosis F29 Dementia F03.90 Coronary artery disease I25.10 Diabetes E11.9 Hyperlipidemia E78.5 GERD (gastroesophageal reflux disease) K21.9 Chronic prescription opiate use Z79.891 Peripheral vascular disease I73.9 Chronic gout [id number] Seizure disorder G40.909 Muscle weakness M62.81 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
[2020-01-11] MEDS: INSULIN GLARGINE SOLOSTAR 100 UNITS/ML 3 ML PEN SC SCH ×2 (08:22→21:38)
[2020-01-11] MEDS: ASPIRIN 81 MG CHEW PO SCH (08:22)
[2020-01-11] MEDS: DIVALPROEX SODIUM SPRINKLE 125 MG CAP PO SCH ×3 (08:22→21:38)
[2020-01-11] MEDS: FAMOTIDINE 20 MG in SYRINGE 3 ML IV SCH ×2 (08:22→21:37)
--- NOTE | 2020-01-11 10:53 | Critical Care Progress Note ---
Date of Service January 11, 2020 Assessment & Plan (1) Extrapyramidal and movement disorder: Reason Critically Ill: 69-year-old male with sepsis and acute hypoxic respiratory failure superimposed on severe underlying dementia 24-hour events: The patient has failed weaning attempts. Decrease in his pressure support down to 5 cm of water resulted in marked decrease in tidal volumes and significant tachypnea. He is awake but does not follow any commands and per neurology is felt to be at or close to his neurologic baseline. 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 According to the neurology notes, he appears close to his baseline. I do not anticipate we will make much headway in improving his overall neurological logic status given his chronic progressive neurological disorders. Continue his current outpatient regimen. Resp: Hypoxemic respiratory failure secondary to pneumonia. Patient is at high risk for aspiration events. Chest x-ray demonstrates bibasilar pulmonary infiltrates. Repeated attempts have demonstrated that the patient is unable to tolerate much in the way of pressure support wean at this point time. He is currently day 6 or 7 of mechanical ventilation. Given his underlying neurologi britney issues, we could consider tracheostomy however I am unsure that this is in the patient's best interest given his significant neurological defects and lack of likely neurologic recovery. We will continue daily breathing trials to see if he can improve. Bronchoscopy cultures from a week ago have shown no growth to date. We will recheck sputum samples. CV: Coronary artery disease Peripheral vascular disease -As evidenced by bypass grafts on KUB -81 mg aspirin daily Fluids/Renal: Acute kidney injury: Resolved Hypernatremia: Resolved Hyperchloremic metabolic acidosis: Resolved -Free water deficit: Resolved Hypermagnesemia: Resolved Lactic acidosis: Resolved ID: Gram-negative bacilli bacteremia: E. coli: Nia quinolone resistance. Surveillance cultures demonstrated no persistent growth. He is afebrile although his white count is increasing somewhat. We will repeat cultures. He was placed back on Rocephin 4 days ago. We will hold antibiotics at this point time until we have additional data. [place] [facility] respiratory panel: Carbone negative COVID PCR negative Legionella antigen negative GI/Nutrition: Tolerating tube feeding. Previously abnormal LFTs have now resolved. Heme: Anemia: Megaloblastic DVT prophylaxis: Lovenox 40 daily Endocrine: ICU hyperglycemia protocol Hyperglycemia: Adjust target glucose to 1 10-1 40. Vascular access: Peripheral IVs Code Status: Full Ultimately the patient appears clinically stagnant at this point time largely due to his underlying neurological issues. We need to have a clear discussion with the patient's decision makers regarding his prognosis. At this point time if they want to continue aggressive care, it seems that tracheostomy and potential transfer to long-term acute care facility would be appropriate although again his prognosis for significant functional recovery is quite poor and he is demonstrated significant functional decline in the last several months. Case management and palliative care working on setting up meetings with the patient's decision makers. Additional recommendations will be based on those studies. The patient is critically ill at this point time with sig nificant possibility of clinical deterioration and organ dysfunction. Unfortunately it is unclear how much of this may actually be reversible (2) Acute respiratory failure with hypoxia: (3) Pneumonia: (4) Sepsis associated hypotension: (5) Acute kidney injury: Admission and Anticipated Discharge Date Admission Date: January 04, 2020 Subjective Patient is intubated on the mechanical ventilator. Review of Systems Review of Systems: Unobtainable due to endotracheal tube Results & Data Results & Data ([facility]) Vital Signs (Past 12 Hours) Vital Signs Temp Pulse Resp BP Pulse Ox 01/11/20 09:17 36.9 C 01/11/20 08:25 88 18 98 01/11/20 08:20 84 101/70 97 01/11/20 07:20 87 152/99 H 97 01/11/20 05:22 79 14 99 01/11/20 02:34 81 18 100 01/11/20 00:00 80 01/10/20 23:00 92 H 99 Laboratory Results 01/10/20 04:11 01/10/20 04:11 01/04/20 01/05/20 17:03 12:52 VBG pH 7.47 H 7.39 VBG pCO2 43 41 VBG pO2 42 86 VBG HCO3 31 25 VBG O2 Saturation 77.1 96.7 VBG Base Excess 6.1 -0.4 Diagnostic Findings Chest x-ray from yesterday was independently reviewed. There are bibasilar pulmonary infiltrates. Tubes and lines appear in good position. Coding Level of Care Code Critical Care 1st 30-74 mins Diagnoses Extrapyramidal and movement disorder G25.9 Acute respiratory failure with hypoxia J96.01 Pneumonia J18.9 Sepsis associated hypotension A41.9; I95.9 Acute kidney injury N17.9 Time Spent (min) 55
--- NOTE | 2020-01-11 14:19 | Palliative Care Progress Note ---
Date of Service January 11, 2020 Assessment & Plan (1) Goals of care, counseling/discussion: This is a 69 year old male who was transferred to the [facility] from [facility] after nursing reported his SpO2 to be decreased and he was recently diagnosed with LLL infiltrates. The patient has an extensive past medical history that includes schizoaffective disorder, psychosis, dementia, cad, dm2, HLD, GERD, PVD, gout, seizure, and depression. At baseline, the patient is a residential resident at [facility] at [facility] and is bedbound/wheelchair bound. He is unable to feed himself and all of his ADL needs are anticipated and met by staff at [facility]. The patient was intubated and remains intubated at this time -he failed vent weaning over the weekend. His eyes are open, but does not track. -Brother has not been straightforward with staff-stated that he is the POA and [facility] did have paperwork stating such. [facility] sent over the paperwork for POA which was the girlfriend until she revoked in October 2016. They have no other POA paperwork or other family contacts. -The patient is intubated -The patient does open his eyes, blinks with confrontation but does not track or follow commands. -Currently, the patient is a Full Code; Discussed resuscitation in detail with brother at bedside on 01/07-states he needs to think about it before making any changes to his CODE STATUS -I reached out and spoke with the brother, Octaviano, , regarding need for decisions this week regarding ventilator. -Overall, it appears that the patients quality of life is poor at best. -Will continue to follow and assist family with medical decision making (2) Acute respiratory failure with hypoxia: (3) Peripheral vascular disease: (4) Muscle weakness: (5) Schizoaffective disorder, chronic condition: (6) Dementia: (7) Schizophrenia: Subjective Patient seen and examined in room 107, no family at bedside. Patient intubated, eyes open, does not follow simple commands. Collaborated with case management-they obtained paperwork from the [facility], patient was able to make his own medical decisions back in 2012, he named his girlfriend as his POA. Girlfriend revoked her POA responsibilities in October 2016 via written letter. At that time girlfriend was aware that patient had a brother, but did not have any contact information for him. Spoke with patient's brother,Octaviano, , updated him on his brother's current condition. Brother focused on his kidneys and heart, better working well, reported to brother that his pulmonary status is unchanged and that we need to make some definitive decisions this week. Patient states he wanted to call me back-gave him desk extension of [phone]. Asked patient's brother if there are any other family that could assist him with making a decision, he replied "no I am the only one ". Review of Systems Review of Systems: Unobtainable due to cognitive status Physical Exam Physical Exam: PE: Patient appears awake-eyes open, blinks to confrontation. Does not follow simple commands. He does not attempt to nod yes or no to simple questions. HEENT: EOMI Respiratory: Unlabored, intubated CV: Regular rate, cold distal extremities Abdomen: Soft, no grimace with palpation Neuro, appears to be awake, blinks on confrontation, unable to follow simple commands. Results & Data Vital Signs (Past 12 Hours) Vital Signs Temp Pulse Resp BP Pulse Ox 01/11/20 13:45 80 16 100 01/11/20 11:41 96 H 36 H 98 01/11/20 11:34 96 H 28 H 98 01/11/20 10:40 82 20 98 01/11/20 09:17 98.4 F 01/11/20 08:25 88 18 98 01/11/20 08:20 84 101/70 97 01/11/20 07:20 87 152/99 H 97 01/11/20 05:22 79 14 99 01/11/20 02:34 81 18 100 PG Care Time/CCT Total # of Minutes Spent Total Time Spent with Patient: Total time spent 35 minutes with greater than 50% of the time at bedside assessing patient's current status, collaborating with attending on unit as well as with case management. Coding Level of Care Code 26095 Subseq Hosp Care Lvl 3 Diagnoses Goals of care, counseling/discussion Z71.89 Acute respiratory failure with hypoxia J96.01 Peripheral vascular disease I73.9 Muscle weakness M62.81 Schizoaffective disorder, chronic condition F25.8 Dementia F03.90 Schizophrenia F20.9 Time Spent (min) 35
[2020-01-11] MEDS: ENOXAPARIN INJ 40 MG/0.4 ML SYR SQ SCH (14:42)
[2020-01-11] MEDS: fentaNYL DRIP 1,250 MCG/250 ML BAG IV SCH (16:41)
[2020-01-11] MEDS: propofoL 1,000 MG/100 ML VIAL IV SCH (16:42)
[2020-01-11] MEDS: IMPACT LIQD 1.0 CAL 1,000 ML BAG NG PRN (17:37)
[2020-01-12] MEDS: INSULIN ASPART 100 UNITS/ML 3 ML PEN SC SCH ×7 (00:32→23:24)
[2020-01-12 05:05] LABS: Hematocrit (blood only) 36.3 % (42-52); Hemoglobin 11.8 g/dL (14.0-18.0); Mean Corpuscular Hemoglobin 29.9 pg (25-34); Mean Corpuscular Hgb Conc 32.5 g/dL (32-36); Mean Corpuscular Volume 91.9 fL (80-100); Mean Platelet Volume 9.7 fL (7.4-10.4); Nucleated RBC # (auto) 0.04 K/uL (0-0); Nucleated RBC % (auto) 0.2 %; Platelet Count 456 K/uL (130-400); RDW Coefficient of Variation 13.6 % (11.5-14.5); RDW Standard Deviation 45.5 fL (36.4-46.3); Red Blood Count 3.95 M/uL (4.7-6.1); White Blood Count 18.92 K/uL (4.8-10.8)
[2020-01-12 05:30] LABS: Albumin Level 2.1 gm/dl (3.4-5.0); BUN Creatinine Ratio 33.4 (10-20); Creatinine Clr Calc Pharmacy 87.4 ml/min; Est GFR (Non-African American) 92.3; Magnesium 1.7 mg/dl (1.8-2.4); Potassium 3.9 mmol/L (3.5-5.1)
[2020-01-12 05:33] LABS: Albumin Globulin Ratio 0.5 (0.9-2); Bilirubin,Total 0.4 mg/dl (0.2-1); Globulin 4.2 gm/dl (2.5-4.0); Phosphorus 3.8 mg/dl (2.5-4.9); Total Protein 6.3 gm/dl (6.4-8.2)
[2020-01-12 05:38] LABS: iSTAT Allen Test Pass; iSTAT Art Bld Gas pCO2 Correct 37 mmHg (35-46); iSTAT Art Bld Gas pH Corrected 7.523 (7.35-7.45); iSTAT Arterial Blood Gas HCO3 30 meg/L (19-24); iSTAT Arterial Blood Gas pCO2 37 mmHg (35-46); iSTAT Arterial Blood Gas pH 7.52 (7.35-7.45); iSTAT Arterial Blood Gas pO2 86 mmHg (80-95); iSTAT Arterial Blood Gas pO2 C 85; iSTAT Carbon Dioxide 31 mmol/L (24-31); iSTAT FiO2 30 %; iSTAT Hematocrit 32 % (42-52); iSTAT Hemoglobin 10.9 g/dl (14.0-18.0); iSTAT Potassium 3.9 mmol/L (3.3-5.0); iSTAT Site L Radial; iSTAT Sodium 130 mmol/L (135-144)
[2020-01-12 05:44] LABS: Basophils # (auto) 0.04 K/uL (0-0.2); Basophils % (auto) 0.2 %; Eosinophils # (auto) 0.09 K/uL (0-0.5); Eosinophils % (auto) 0.5 %; Immature Granulocytes # (auto) 1.34 K/uL (0.00-0.02); Immature Granulocytes % (auto) 7.1 %; Lymphocytes # (auto) 2.27 K/uL (1.2-3.4); Monocytes # (auto) 1.45 K/uL (0.11-0.59); Monocytes % (auto) 7.7 %; Neutrophils # (auto) 13.73 K/uL (1.4-6.5); Neutrophils % (auto) 72.5 %; Polychromasia 1+
[2020-01-12] MEDS ORDERED: MAGNESIUM SULFATE / D5W 1 GM/100 ML BAG IV ONE (05:55)
--- NOTE | 2020-01-12 07:01 | XRay Report ---
XR chest 1V portable CLINICAL HISTORY: resp failure dyspnea COMPARISON STUDY: 01/10/2020 FINDINGS: Endotracheal tube 3 cm above the miguel. Basilar parenchymal infiltrative changes mildly im proved. Mid and upper lungs are considered clear. IMPRESSION: 1. Endotracheal tube 3 cm above the miguel. 2. Nasogastric tube within the mid stomach. 3. Improving basilar infiltrative change. ACT 112: Negative or not required by law. The above report was generated using voice recognition software. It may contain grammatical, syntax or spelling errors. Electronically signed by: Soy Hsieh M.D. 01/12/2020 7:00 AM
[2020-01-12] MEDS: ALBUT/IPRATROP 3MG/0.5MG NEB 3 ML VIAL NEB SCH ×4 (07:22→19:26)
--- NOTE | 2020-01-12 07:50 | Hospitalist Progress Note ---
Date of Service January 12, 2020 Assessment & Plan (1) Sepsis associated hypotension: gram negatives in blood and urine growing quinalone resistant E Coli Hypotension resolvedresponded to IV fluids antibiotics streamlined to Ceftriaxone (2) Acute respiratory failure with hypoxia: Pt intubated and ventilated, managed by icu team Poor response attempted weaning trials concern for persistent ventilation required. Concerns for recurrent aspiration and protecting airway Discussion with family and the critical care attending on 01/11 to direct further supportive care or not (3) Pneumonia: Elevated procalcitonin and bilateral opacities on chest x-ray low grade fever 01/10- Aspiration vs. Health-care acquired (in shelter setting). urine cultures supports urinary source, but CXR also persists with basilar changes, unimproved (4) Urinary tract infection: Will continue menjivar catheter at present due need to measure UO with sepsis. (5) Acute kidney injury: Suspected prerenal due to acute infection, dehydration (poor oral intake) and meloxicam use. Resolved Continue holding meloxicam. Patient is on tube feeds resolved hypernatremia. (6) Hypernatremia: Increased on admission due to NSS given as boluses in ER and to some extent LR maintenance. Unlikely DI given no polyuria noted. Resolved (7) Altered mental state: metabolic encephalopathy CT head negative for acute intracranial abnormality EEG unremarkable. neurology feels may stop Keppra and eval for clinical changes, no immediate need for antiepileptics valproic acid level is low however this is likely more used for mood stabilization then antiepileptic effects anti-psychotics and opiates but will start at lower dose and be guided by psychiatry evaluation as above (8) Schizoaffective disorder, chronic condition: previously taking both Seroquel 100 mg twice daily (although notably on Seroquel 150mg TID in 2014) and haloperidol 2mg PO BID and 25 mg IM monthly. Consult psychiatry did not feel that delirium is related to his psychotropic medications. Agreeing with holding venlafaxine but reinstituting it as soon as possible. (9) Psychosis: He has remained intubated. Continue to be unable to determine delusion or hallucinations given dementia and current cognitive state. Haloperidol as needed (10) Dementia: Noted history of stroke with old left cerebral infarct. Although Alzheimer's noted on prior problem list I suspect his prior stroke and medication are likely contributory. (11) Coronary artery disease: Unclear history of this. No prior stents or CABG Echocardiogram performed 01/03 shows normal EF, severe aortic stenosis. (12) Diabetes: HbA1C 6.6 Continue to hold out patient Lantus dosing while NPO Continue Novolog correction factor for now. (13) Hyperlipidemia: Hold simvastatin while NPO (14) GERD (gastroesophageal reflux disease): Switch omeprazole PO 20mg QAM to famotidine 20mg IV daily while NPO (15) Chronic prescription opiate use: Fentanyl patch removed on admission On chronic opiates for right foot and right hand pain. Also taking Meloxicam 15mg QAM and [place] Q6H OFE as per prior documentation Possible overdose causing lethargy on admission in setting of CORY (16) Peripheral vascular disease: Noted history of this. Not on antiplatelets are noted above. Holding simvastatin while NPO and lethargic. (17) Chronic gout: Will hold allopurinol while unable to take PO meds (18) Seizure disorder: Valproic acid and Keppra levels ordered (although notably these have previously been normal or low). Continue IV valproic acid and stopped Keppra per neurology recommendations EEG - non-seizure activity noted despite head tremor during EEG. Very mild generalized slowing represents a very mild encephalopathy. 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 Suspect from prior stroke in setting of chronic anti-psychotic use. Consult neurology - discussed with Dr Landa and recommend patient is seen tomorrow after another day of medical optimization and psychiatry review of his outpatient medication regimen. (21) Depression: Continue venlafaxine once patient if able to return to PO meds (22) DVT prophylaxis: Heparin 5000 units SQ Q8H Patient's brother who is only next of kin we can identify reportedly brother was going to be able to talk to intensive care unit team today around 1500 hrs. Admission and Anticipated Discharge Date Admission Date: January 04, 2020 Subjective Patient remains intubated in the ICU. Patient opens his eyes to tactile stimuli looks towards the left side of the bed where if if you are standing there he appears to be looking at you however when moving about the room or to the inside of the bed and doing the same thing he does not look to that side nor make eye contact. He continues not to follow any commands he has limited movement of his upper extremities but does move his lower extremities spontaneously repositioning at times Review of Systems Review of Systems: Unable to obtain full ROS due to intubation/sedation status Physical Exam Physical Exam: The patient appeared to continue with very little cognitive interaction Vital signs as documented. Lungs remain coarse Cardiac exam, Rhythm is regular.. Systolic ejection murmur heard consistent with aortic stenosis Abdominal exam reveals normal bowel sounds, soft, no masses Extremities are nonedematous and both pedal pulses are normal. Neurologic exam is alert to tactile stimuli does not follow commands Patient is seriously ill requiring life support Results & Data Results & Data ([facility]) Vital Signs (Past 12 Hours) Vital Signs Temp Pulse Resp BP Pulse Ox 01/12/20 07:25 78 12 100 01/12/20 05:28 86 13 98 01/12/20 03:00 90 99 01/12/20 02:33 88 19 97 01/12/20 02:21 89 131/80 98 01/12/20 02:00 86 98 01/12/20 01:21 86 95/66 L 99 01/12/20 01:00 90 98 01/12/20 00:20 91 H 138/83 99 01/12/20 00:00 99.1 F 86 97 01/11/20 23:27 75 19 97 01/11/20 23:21 86 118/76 97 01/11/20 23:00 91 H 98 01/11/20 22:21 84 133/94 99 01/11/20 22:00 81 99 01/11/20 21:21 88 119/77 99 01/11/20 21:00 87 99 01/11/20 20:20 89 123/79 100 01/11/20 20:15 83 20 99 01/11/20 20:00 99.3 F 86 99 PG Care Time/CCT Total # of Minutes Spent Total Time Spent with Patient: Total time spent is greater than 50% in coordination of care (as documented) at patient's floor/unit and/or counseling patient: Coding Level of Care Code 64236 Subseq Hosp Care Lvl 3 Diagnoses Sepsis associated hypotension A41.9; I95.9 Acute respiratory failure with hypoxia J96.01 Pneumonia J18.9 Urinary tract infection N39.0 Acute kidney injury N17.9 Hypernatremia E87.0 Altered mental state R41.82 Schizoaffective disorder, chronic condition F25.8 Psychosis F29 Dementia F03.90 Coronary artery disease I25.10 Diabetes E11.9 Hyperlipidemia E78.5 GERD (gastroesophageal reflux disease) K21.9 Chronic prescription opiate use Z79.891 Peripheral vascular disease I73.9 Chronic gout M1A.9XX0 Seizure disorder G40.909 Muscle weakness M62.81 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
[2020-01-12] MEDS: FAMOTIDINE 20 MG in SYRINGE 3 ML IV SCH (09:34)
[2020-01-12] MEDS: DIVALPROEX SODIUM SPRINKLE 125 MG CAP PO SCH ×3 (09:35→19:55)
[2020-01-12] MEDS: INSULIN GLARGINE SOLOSTAR 100 UNITS/ML 3 ML PEN SC SCH ×2 (09:35→19:54)
[2020-01-12] MEDS: ASPIRIN 81 MG CHEW PO SCH (09:42)
--- NOTE | 2020-01-12 11:42 | Critical Care Progress Note ---
Date of Service January 12, 2020 Assessment & Plan (1) Extrapyramidal and movement disorder: Reason Critically Ill: 69-year-old male with sepsis and acute hypoxic respiratory failure superimposed on severe underlying dementia 24-hour events: Propofol weaned off and maintained on as needed fentanyl. Patient remains hemodynamically stable. He continues to undergo twice daily spontaneous breathing trials but rapidly fails with withdrawal of any positive pressure support. Case management is working diligently to try and find power of securities attorney for healthcare of this patient or surrogate decision maker. He remains afebrile but his white count is increasing PLAN: Neuro: Underlying advanced dementia as well as schizoaffective disorder with some extra pyramidal movement disorder related to medications. According to the neurology notes, he appears close to his baseline. I do not anticipate we will make much headway in improving his overall neurological logic status given his chronic progressive neurological disorders. Continue his current outpatient regimen. Resp: Hypoxemic respiratory failure secondary to pneumonia. Patient is at high risk for aspiration events. Chest x-ray demonstrates bibasilar pulmonary in filtrates. Repeated attempts have demonstrated that the patient is unable to tolerate much in the way of pressure support wean at this point time. He is currently day 8 of mechanical ventilation. Given his underlying neurological issues, we could consider tracheostomy however I am unsure that this is in the patient's best interest given his significant neurological defects and lack of likely neurologic recovery. In addition after discussion with case management, it is unclear that we would have a placement strategy for this patient if he were to remain vent dependent and trached. We will continue daily breathing trials to see if he can improve. Bronchoscopy cultures from a week ago have shown no growth to date. Sputum growing a gram-negative deandre. CV: No current issues. Hemodynamically stable Fluids/Renal: Previous electrolyte abnormalities are now resolved. Kidney function is normal. Volume status and acid-base status are acceptable ID: Gram-negative bacilli bacteremia: E. coli: Nia quinolone resistance. Surveillance cultures demonstrated no persistent growth. He is afebrile although his white count is increasing somewhat. Sputum cultures now with a gram-negative deandre. COVID and bio fire were negative in the past. Given his elevated white blood cell count and persistent infiltrates, could consider treating although it is unclear at this point time what is colonization and what is actual infection as his oxygen requirements have not gone up and he is not had copious secretions. His CPSI score is not markedly elevated. GI/Nutrition: Tolerating tube feeding. Previously abnormal LFTs have now resolved. Discontinue IV H2 ivvien and replace with oral PPI Heme: Anemia: Megaloblastic DVT prophylaxis: Lovenox 40 daily Endocrine: Continue glycemic control Vascular access: Peripheral IVs Code Status: Full Ultimately the patient appears clinically stagnant at this point time largely due to his underlying neurological issues. It appears that his quality of life and functional status had been declining significantly prior to admission to the hospital and it is unlikely that any interventions that we are to make in this acute setting would significantly improve his overall quality of life. He was bedbound and nonverbal prior to this admission. I would strongly recommend consideration of palliative approach in this patient and we will continue to try and reach out to the patient's brother. If he elects to pursue an aggressive approach, could consider tracheostomy and PEG tube placement although long-term placement of this patient would be a significant roadblock. I attempted to reach Octaviano, the patient's brother and medical decision maker today by phone but was only able to reach voicemail. Case management continues to try and get in touch with him as well to arrange a conference (2) Acute respiratory failure with hypoxia: (3) Pneumonia: (4) Sepsis associated hypotension: (5) Acute kidney injury: Admission and Anticipated Discharge Date Admission Date: January 04, 2020 Subjective Patient remains intubated in the ICU. He is awake and tracks but does not follow any commands. Review of Systems Review of Systems: Unobtainable due to cognitive status and Unobtainable due to endotracheal tube Physical Exam Constitutional: + ill appearing, + cachectic, + mechanically ventilated and + malnourished Eyes: PERRL, conjunctivae normal, anicteric sclerae Neck: trachea midline, no thyromegaly Respiratory: Coarse breath sounds bilaterally Cardiovascular: Heart Sounds: normal S1 and normal S2; no murmur Extremities: no edema Gastrointestinal (Abdomen): normal bowel sounds, soft, nontender, no hepatosplenomegaly Neurologic: Awake with eyes open and intermittently tracks but does not follow any commands. Does withdraw to painful stimuli all 4 extremities Results & Data Results & Data ([facility]) Vital Signs (Past 12 Hours) Vital Signs Temp Pulse Resp BP Pulse Ox 01/12/20 10:57 79 17 100 01/12/20 10:08 87 180/101 H 100 07/14/20 09:21 84 155/90 H 100 01/12/20 08:21 37.2 C 88 172/102 H 100 01/12/20 07:25 78 12 100 01/12/20 07:21 79 113/71 100 01/12/20 05:28 86 13 98 01/12/20 03:00 90 99 01/12/20 02:33 88 19 97 01/12/20 02:21 89 131/80 98 01/12/20 02:00 86 98 01/12/20 01:21 86 95/66 L 99 01/12/20 01:00 90 98 01/12/20 00:20 91 H 138/83 99 01/12/20 00:00 37.3 C 86 97 Laboratory Results 01/12/20 04:31 01/12/20 04:31 Sputum culture pending but appears to be growing a gram-negative deandre Diagnostic Findings Chest x-ray from today was independently reviewed. Endotracheal tube and other support lines appear to be in good position. Lung volumes are slightly low. There is a patchy opacity at the bilateral lung bases. Not significantly changed from prior. Coding Level of Care Code Critical Care 1st 30-74 mins Diagnoses Extrapyramidal and movement disorder G25.9 Acute respiratory failure with hypoxia J96.01 Pneumonia J18.9 Sepsis associated hypotension A41.9; I95.9 Acute kidney injury N17.9 Time Spent (min) 55 Comment 55 minutes critical care time including end-of-life discussions
[2020-01-12] MEDS: ENOXAPARIN INJ 40 MG/0.4 ML SYR SQ SCH (13:05)
[2020-01-12] MEDS: IMPACT LIQD 1.0 CAL 1,000 ML BAG NG PRN (13:20)
[2020-01-12] MEDS: fentaNYL DRIP 1,250 MCG/250 ML BAG IV SCH (16:07)
[2020-01-13] MEDS: fentaNYL DRIP 1,250 MCG/250 ML BAG IV SCH ×2 (00:35→19:30)
[2020-01-13] MEDS: INSULIN ASPART 100 UNITS/ML 3 ML PEN SC SCH ×6 (03:49→23:49)
[2020-01-13 04:43] LABS: Hematocrit (blood only) 35.5 % (42-52); Mean Corpuscular Hemoglobin 31.3 pg (25-34); Mean Corpuscular Hgb Conc 33.8 g/dL (32-36); Mean Corpuscular Volume 92.7 fL (80-100); Mean Platelet Volume 9.5 fL (7.4-10.4); Platelet Count 406 K/uL (130-400); RDW Coefficient of Variation 13.7 % (11.5-14.5); RDW Standard Deviation 46.4 fL (36.4-46.3); Red Blood Count 3.83 M/uL (4.7-6.1); White Blood Count 19.09 K/uL (4.8-10.8)
[2020-01-13 05:07] LABS: Basophils # (auto) 0.05 K/uL (0-0.2); Basophils % (auto) 0.3 %; Eosinophils # (auto) 0.04 K/uL (0-0.5); Eosinophils % (auto) 0.2 %; Immature Granulocytes # (auto) 0.84 K/uL (0.00-0.02); Immature Granulocytes % (auto) 4.4 %; Lymphocytes # (auto) 2.19 K/uL (1.2-3.4); Lymphocytes % (auto) 11.5 %; Monocytes # (auto) 1.31 K/uL (0.11-0.59); Monocytes % (auto) 6.9 %; Neutrophils # (auto) 14.66 K/uL (1.4-6.5); Neutrophils % (auto) 76.7 %; RBC Morphology Unremarkable
[2020-01-13 05:14] LABS: BUN Creatinine Ratio 33.9 (10-20); Calcium 9.5 mg/dl (8.5-10.1); Creatinine Clr Calc Pharmacy 72.8 ml/min; Est GFR (African American) 99.2; Est GFR (Non-African American) 85.6; Magnesium 2.1 mg/dl (1.8-2.4); Phosphorus 3.8 mg/dl (2.5-4.9); Potassium 4.2 mmol/L (3.5-5.1)
[2020-01-13 05:30] LABS: iSTAT Allen Test Pass; iSTAT Arterial Blood Gas HCO3 33 meg/L (19-24); iSTAT Arterial Blood Gas pCO2 47 mmHg (35-46); iSTAT Arterial Blood Gas pH 7.46 (7.35-7.45); iSTAT Arterial Blood Gas pO2 86 mmHg (80-95); iSTAT Carbon Dioxide 35 mmol/L (24-31); iSTAT Site R Radial
[2020-01-13] MEDS: ALBUT/IPRATROP 3MG/0.5MG NEB 3 ML VIAL NEB SCH ×4 (07:34→18:54)
[2020-01-13] MEDS: INSULIN GLARGINE SOLOSTAR 100 UNITS/ML 3 ML PEN SC SCH ×2 (08:00→21:40)
[2020-01-13] MEDS: ASPIRIN 81 MG CHEW PO SCH (08:01)
[2020-01-13] MEDS: LANSOPRAZOLE 15 MG SOLTAB PO SCH (08:01)
[2020-01-13] MEDS: DIVALPROEX SODIUM SPRINKLE 125 MG CAP PO SCH ×3 (08:01→21:41)
--- NOTE | 2020-01-13 08:04 | Hospitalist Progress Note ---
Date of Service January 13, 2020 Assessment & Plan (1) Sepsis associated hypotension: gram negatives in blood and urine growing quinalone resistant E Coli Hypotension resolvedresponded to IV fluids antibiotics streamlined to zosyn (2) Acute respiratory failure with hypoxia: Pt intubated and ventilated, managed by icu team Poor response attempted weaning trials concern for persistent ventilation required. Concerns for recurrent aspiration and protecting airway Discussion with family and the critical care attending on 01/11 family meeting on sunday 01/14 planned (3) Pneumonia: Elevated procalcitonin and bilateral opacities on chest x-ray low grade fever 01/10- Aspiration vs. Health-care acquired (in snf setting). urine cultures supports urinary source, but CXR also persists with basilar changes, unimproved (4) Urinary tract infection: Will continue menjivar catheter at present due need to measure UO with sepsis. (5) Acute kidney injury: Suspected prerenal due to acute infection, dehydration (poor oral intake) and meloxicam use. Resolved Continue holding meloxicam. Patient is on tube feeds resolved hypernatremia. (6) Hypernatremia: Increased on admission due to NSS given as boluses in ER and to some extent LR maintenance. Unlikely DI given no polyuria noted. Resolved (7) Altered mental state: metabolic encephalopathy CT head negative for acute intracranial abnormality EEG unremarkable. neurology feels may stop Keppra and eval for clinical changes, no immediate need for antiepileptics valproic acid level is low however this is likely more used for mood stabilization then antiepileptic effects anti-psychotics and opiates but will start at lower dose and be guided by psychiatry evaluation as above (8) Schizoaffective disorder, chronic condition: previously taking both Seroquel 100 mg twice daily (although notably on Seroquel 150mg TID in 2014) and haloperidol 2mg PO BID and 25 mg IM monthly. Consult psychiatry did not feel that delirium is related to his psychotropic medications. Agreeing with holding venlafaxine but reinstituting it as soon as possible. (9) Psychosis: He has remained intubated. Continue to be unable to determine delusion or hallucinations given dementia and current cognitive state. Haloperidol as needed (10) Dementia: Noted history of stroke with old left cerebral infarct. Although Alzheimer's noted on prior problem list I suspect his prior stroke and medication are likely contributory. (11) Coronary artery disease: Unclear history of this. No prior stents or CABG Echocardiogram performed 01/03 shows normal EF, severe aortic stenosis. (12) Diabetes: HbA1C 6.6 Continue to hold out patient Lantus dosing while NPO Continue Novolog correction factor for now, plus scheduled lantus given reliable calorie intake (13) Hyperlipidemia: Hold simvastatin while NPO (14) GERD (gastroesophageal reflux disease): Switch omeprazole PO 20mg QAM to famotidine 20mg IV daily while NPO (15) Chronic prescription opiate use: Fentanyl patch removed on admission On chronic opiates for right foot and right hand pain. Also taking Meloxicam 15mg QAM and [place] Q6H OFE as per prior documentation Possible overdose causing lethargy on admission in setting of CORY (16) Peripheral vascular disease: Noted history of this. Not on antiplatelets are noted above. Holding simvastatin while NPO and lethargic. (17) Chronic gout: Will hold allopurinol while unable to take PO meds (18) Seizure disorder: Valproic acid and Keppra levels ordered (although notably these have previously been normal or low). Continue IV valproic acid and stopped Keppra per neurology recommendations EEG - non-seizure activity noted despite head tremor during EEG. Very mild generalized slowing represents a very mild encephalopathy. 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 Suspect from prior stroke in setting of chronic anti-psychotic use. Consult neurology - discussed with Dr Landa and recommend patient is seen tomorrow after another day of medical optimization and psychiatry review of his outpatient medication regimen. (21) Depression: Continue venlafaxine if able to return to PO meds/pt regains cognitive awareness (22) DVT prophylaxis: lovenox daily Patient's brother who is only next of kin we can identify reportedly brother was going to be able to talk to intensive care unit team today around 1500 hrs. Admission and Anticipated Discharge Date Admission Date: January 04, 2020 Subjective NO real changes in status, exam or therapy, family not decided on course to progress, Patient remains intubated in the ICU. Patient opens his eyes to tactile stimuli looks towards the left side of the bed where if if you are standing there he appears to be looking at you however when moving about the room or to the inside of the bed and doing the same thing he does not look to that side nor make eye contact. He continues not to follow any commands he has limited movement of his upper extremities but does move his lower extremities spontaneously repositioning at times Review of Systems Review of Systems: Unable to obtain full ROS due to intubation/sedation status Physical Exam Physical Exam: The patient appeared to continue with very little cognitive interaction Vital signs as documented. Lungs remain coarse Cardiac exam, Rhythm is regular.. Systolic ejection murmur heard consistent with aortic stenosis Abdominal exam reveals normal bowel sounds, soft, no masses Extremities are nonedematous and both pedal pulses are normal. Neurologic exam is alert to tactile stimuli does not follow commands Patient is seriously ill requiring life support Results & Data Results & Data ([facility]) Vital Signs (Past 12 Hours) Vital Signs Pulse Resp BP Pulse Ox 01/13/20 07:34 93 H 22 98 01/13/20 07:01 82 105/72 97 01/13/20 06:00 84 97 01/13/20 05:18 83 16 98 01/13/20 05:01 89 95/63 L 96 01/13/20 05:00 85 95 01/13/20 04:02 92 H 100/61 96 01/13/20 04:00 91 H 96 01/13/20 03:02 100 H 155/98 H 98 01/13/20 03:00 96 H 98 01/13/20 02:01 87 112/61 98 01/13/20 02:00 89 16 97 01/13/20 01:01 94 H 95/63 L 95 01/13/20 01:00 98 H 97 01/13/20 00:01 106 H 127/92 95 01/13/20 00:00 106 H 96 01/12/20 23:01 91 H 131/77 96 01/12/20 23:00 93 H 98 01/12/20 22:31 94 H 22 97 01/12/20 22:01 94 H 110/64 95 01/12/20 22:00 92 H 96 01/12/20 21:34 108 H 153/89 H 95 01/12/20 21:02 97 H 127/78 100 01/12/20 21:00 96 H 100 PG Care Time/CCT Total # of Minutes Spent Total Time Spent with Patient: Total time spent is greater than 50% in coordination of care (as documented) at patient's floor/unit and/or counseling patient: Coding Level of Care Code 52801 Subseq Hosp Care Lvl 2 Diagnoses Sepsis associated hypotension A41.9; I95.9 Acute respiratory failure with hypoxia J96.01 Pneumonia J18.9 Urinary tract infection N39.0 Acute kidney injury N17.9 Hypernatremia E87.0 Altered mental state R41.82 Schizoaffective disorder, chronic condition F25.8 Psychosis F29 Dementia F03.90 Coronary artery disease I25.10 Diabetes E11.9 Hyperlipidemia E78.5 GERD (gastroesophageal reflux disease) K21.9 Chronic prescription opiate use Z79.891 Peripheral vascular disease I73.9 Chronic gout [id number] Seizure disorder G40.909 Muscle weakness M62.81 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
--- NOTE | 2020-01-13 08:14 | XRay Report ---
XR chest 1V portable HISTORY: Respiratory failure. Dyspnea. COMPARISON: Chest 01/12/2020. FINDINGS: Slight improvement in the bibasilar airspace opacities. The upper lung zones remain clear. No pneumothorax. No pleural effusions. The heart is normal in size. Nasogastric tube terminates below the diaphragm. The tip is not included on this study. Endotracheal tube terminates 2.3 cm from the c molina. IMPRESSION: 1. Slight improvement in the bibasilar airspace opacities. 2. Satisfactory support line placement. ACT 112: Negative or not required by law. Electronically signed by: Heath Pham M.D. 01/13/2020 8:13 AM
[2020-01-13] MEDS: ENOXAPARIN INJ 40 MG/0.4 ML SYR SQ SCH (13:50)
[2020-01-13] MEDS ORDERED: PIPERACILL/TAZOBAC CONSULT ACTIVE PRN (15:28)
--- NOTE | 2020-01-13 15:30 | Critical Care Progress Note ---
Date of Service January 13, 2020 Assessment & Plan (1) Extrapyramidal and movement disorder: Reason Critically Ill: 69-year-old male with sepsis and acute hypoxic respiratory failure superimposed on severe underlying dementia 24-hour events: Not much clinical progress. He continues to fail weaning trials. Any change in his pressure support results and tachypnea, hypoxemia, and respiratory distress. He has had some occasional twitching movements but this does not appear to be overt seizure-like activity PLAN: Neuro: Underlying advanced dementia as well as schizoaffective disorder with some extra pyramidal movement disorder related to medications. According to the neurology notes, he appears close to his baseline. I do not anticipate we will make much headway in improving his overall neurological logic status given his chronic progressive neurological disorders. Continue his current outpatient regimen. He has no prior history of seizure and will apply some as needed Ativan to see if this changes these episodes of tongue smacking. Resp: Hypoxemic respiratory failure secondary to pneumonia. Patient is at high risk for aspiration events. Chest x-ray demonstrates bibasilar pulmonary infiltrates. Repeated attempts have demonstrated that the patient is unable to tolerate much in the way of pressure support wean at this point time. He is currently day 9 of mechanical ventilation. Given his underlying neurological issues, we could consider tracheostomy however I am unsure that this is in the patient's best interest given his significant neurological defects and lack of likely neurologic recovery. In addition after discussion with case management, it is unclear that we would have a placement strategy for this patient if he were to remain vent dependent and trached. We will continue daily breathing trials to see if he can improve. Repeat sputum culture growing gram-negative deandre and given the increase in his white blood cell count I will placed on antibiotics. See below. He remains afebrile. CV: No current issues. Hemodynamically stable Fluids/Renal: Previous electrolyte abnormalities are now resolved. Kidney function is normal. Volume status and acid-base status are acceptable ID: Completed course of antibiotics for E. coli bacteremia. We are awaiting speciation of the gram-negative deandre from his sputum but for now we will start him on Zosyn and see how he does. Follow white blood cell count. GI/Nutrition: Tolerating tube feeding. Previously abnormal LFTs have now resolved. Continue PPI Heme: Anemia: Megaloblastic DVT prophylaxis: Lovenox 40 daily Endocrine: Continue glycemic control Vascular access: Peripheral IVs Code Status: Full Ultimately the patient appears clinically stagnant at this point time. He had poor functional status prior to admission to the hospital and certainly is not going to be better off because of his current state. We are awaiting arrival of his brother on Saturday to have discussions regarding long-term care. Would not favor tracheostomy and PEG tube placement in this patient with underlying significant neurocognitive deficits. Transition to palliative care would be the most reasonable approach in my opinion (2) Acute respiratory failure with hypoxia: (3) Pneumonia: (4) Sepsis associated hypotension: (5) Acute kidney injury: Admission and Anticipated Discharge Date Admission Date: January 04, 2020 Subjective Patient remains intubated on the ventilator. He continues to fail spontaneous breathing trials. Review of Systems Review of Systems: Unobtainable due to cognitive status and Unobtainable due to endotracheal tube Physical Exam Constitutional: + ill appearing, + cachectic, + mechanically ventilated and + malnourished Eyes: PERRL, conjunctivae normal, anicteric sclerae Neck: trachea midline, no thyromegaly Cardiovascular: Heart Sounds: normal S1 and normal S2; no murmur Extremities: no edema Gastrointestinal (Abdomen): normal bowel sounds, soft, nontender, no he patosplenomegaly Results & Data Results & Data ([facility]) Vital Signs (Past 12 Hours) Vital Signs Temp Pulse Resp BP Pulse Ox 01/13/20 14:41 85 98 01/13/20 14:02 37.1 C 87 147/71 H 97 01/13/20 13:30 79 116/79 97 01/13/20 13:11 85 19 98 01/13/20 13:01 86 116/79 97 01/13/20 12:02 73 115/73 98 01/13/20 11:45 37.0 C 01/13/20 11:02 90 155/98 H 98 01/13/20 10:49 88 18 99 01/13/20 10:33 88 35 H 99 01/13/20 10:01 36.9 C 83 111/68 97 01/13/20 09:02 81 98/63 L 97 01/13/20 08:02 75 163/89 H 97 01/13/20 08:00 36.8 C 01/13/20 07:34 93 H 22 98 01/13/20 07:01 82 105/72 97 01/13/20 06:00 84 97 01/13/20 05:18 83 16 98 01/13/20 05:01 89 95/63 L 96 01/13/20 05:00 85 95 01/13/20 04:02 92 H 100/61 96 01/13/20 04:00 91 H 96 Laboratory Results 01/13/20 04:27 01/13/20 04:27 Tracheal aspirate from 01/11/2020 growing gram-negative rods not yet speciated Diagnostic Findings Chest x-ray from today was independently reviewed and compared to prior films. Tubes and support lines are in good position. Basilar opacities slightly improved. Coding Level of Care Code Critical Care 1st 30-74 mins Diagnoses Extrapyramidal and movement disorder G25.9 Acute respiratory failure with hypoxia J96.01 Pneumonia J18.9 Sepsis associated hypotension A41.9; I95.9 Acute kidney injury N17.9 Time Spent (min) 41 Comment 41 minutes critical care time evaluating managing patient with life-threatening illness.
[2020-01-13] MEDS ORDERED: PIPERACILLIN/TAZOBACTAM 3.375 GM in DEXTROSE 5% 100 ML IV ONE (15:45)
[2020-01-13] MEDS ORDERED: PIPERACILLIN/TAZOBACTAM 4.5 GM in DEXTROSE 5% 100 ML IV ONE (16:00)
[2020-01-13] MEDS: PIPERACILLIN/TAZOBACTAM 4.5 GM in DEXTROSE 5% 100 ML IV SCH (21:41)
[2020-01-14] MEDS: INSULIN ASPART 100 UNITS/ML 3 ML PEN SC SCH ×5 (03:59→20:45)
[2020-01-14 06:01] LABS: BUN Creatinine Ratio 34.6 (10-20); Creatinine Clr Calc Pharmacy 87.4 ml/min; Est GFR (Non-African American) 92.3; Magnesium 1.7 mg/dl (1.8-2.4); Potassium 4.7 mmol/L (3.5-5.1)
[2020-01-14 06:02] LABS: Phosphorus 3.4 mg/dl (2.5-4.9)
[2020-01-14 06:13] LABS: Hematocrit (blood only) 32.9 % (42-52); Mean Corpuscular Hemoglobin 31.2 pg (25-34); Mean Corpuscular Hgb Conc 33.4 g/dL (32-36); Mean Corpuscular Volume 93.2 fL (80-100); Mean Platelet Volume 9.8 fL (7.4-10.4); Platelet Count 452 K/uL (130-400); RDW Coefficient of Variation 13.8 % (11.5-14.5); RDW Standard Deviation 46.6 fL (36.4-46.3); Red Blood Count 3.53 M/uL (4.7-6.1); White Blood Count 20.27 K/uL (4.8-10.8)
[2020-01-14] MEDS ORDERED: MAGNESIUM SULFATE / D5W 1 GM/100 ML BAG IV ONE (06:13)
[2020-01-14 06:14] LABS: ALC (manual) 2.11 K/uL (1.2-3.4); ANC (manual) 17.63 K/uL (1.4-6.5); Lymphocytes # (manual) 2.11 K/uL (1.2-3.4); Lymphocytes % (manual) 10.4 %; Monocytes # (manual) 0.53 K/uL (0.11-0.59); Monocytes % (manual) 2.6 %; Neutrophils # (manual) 17.63 K/uL (1.4-6.5); RBC Morphology Unremarkable
[2020-01-14] MEDS: PIPERACILLIN/TAZOBACTAM 4.5 GM in DEXTROSE 5% 100 ML IV SCH (06:24)
--- NOTE | 2020-01-14 07:16 | XRay Report ---
XR chest 1V portable CLINICAL HISTORY: f/u COMPARISON STUDY: Chest radiograph January 13, 2020. FINDINGS: Tip of endotracheal tube is difficult to visualize on this exam but likely approximately 1. 1 cm above the miguel. Lung volumes are diminished. No pneumothorax or pleural effusion is noted. Int erstitial thickening and bilateral opacities have increased. Tip of nasogastric tube is within the di stal body of the stomach. IMPRESSION: 1. Progression of bilateral opacities and interstitial thickening, in part due to a hypoventilatory s tudy. 2. No pneumothorax. 3. Satisfactory positioning of the endotracheal and nasogastric tubes. ACT 112: Negative or not required by law. Electronically signed by: Tee Eddy M.D. 01/14/2020 7:15 AM
--- NOTE | 2020-01-14 07:43 | Hospitalist Progress Note ---
Date of Service January 14, 2020 Assessment & Plan (1) Sepsis associated hypotension: gram negatives in blood and urine growing quinalone resistant E Coli Hypotension resolvedresponded to IV fluids antibiotics changed to Ceftolazone tazobactam after sputum grew ESBL Klebsiella (2) Acute respiratory failure with hypoxia: Pt intubated and ventilated, managed by icu team Poor response attempted weaning trials concern for persistent ventilation requ ired. weaning trial of 01/13 resulted inseizure like activity Concerns for recurrent aspiration and protecting airway Discussion with family and the critical care attending on 01/11 family meeting on sunday 01/14 planned (3) Pneumonia: Aspiration vs. Health-care acquired (in half-way setting). klebsiella grew, now on ceftolzone/tazobactam (4) Urinary tract infection: treated (5) Acute kidney injury: Suspected prerenal due to acute infection, dehydration (poor oral intake) and meloxicam use. Resolved Continue holding meloxicam. Patient is on tube feeds resolved hypernatremia. (6) Hypernatremia: Increased on admission due to NSS given as boluses in ER and to some extent LR maintenance. Unlikely DI given no polyuria noted. Resolved (7) Altered mental state: metabolic encephalopathy CT head negative for acute intracranial abnormality EEG unremarkable. neurology feels may stop Keppra and eval for clinical changes, no immediate need for antiepileptics valproic acid level is low however this is likely more used for mood stabilization then antiepileptic effects anti-psychotics and opiates but will start at lower dose and be guided by psychiatry evaluation as above (8) Schizoaffective disorder, chronic condition: previously taking both Seroquel 100 mg twice daily (although notably on Seroquel 150mg TID in 2014) and haloperidol 2mg PO BID and 25 mg IM monthly. Consult psychiatry did not feel that delirium is related to his psychotropic medications. Agreeing with holding venlafaxine but reinstituting it as soon as possible. (9) Psychosis: He has remained intubated. Continue to be unable to determine delusion or hallucinations given dementia and current cognitive state. Haloperidol as needed (10) Dementia: Noted history of stroke with old left cerebral infarct. Although Alzheimer's noted on prior problem list I suspect his prior stroke and medication are likely contributory. (11) Coronary artery disease: Unclear history of this. No prior stents or CABG Echocardiogram performed 7/6 shows normal EF, severe aortic stenosis. (12) Diabetes: HbA1C 6.6 Continue to hold out patient Lantus dosing while NPO Continue Novolog correction factor for now, plus scheduled lantus given reliable calorie intake (13) Hyperlipidemia: Hold simvastatin while NPO (14) GERD (gastroesophageal reflux disease): Switch omeprazole PO 20mg QAM to famotidine 20mg IV daily while NPO (15) Chronic prescription opiate use: Fentanyl patch removed on admission On chronic opiates for right foot and right hand pain. Also taking Meloxicam 15mg QAM and Wilson Q6H OFE as per prior documentation Possible overdose causing lethargy on admission in setting of CORY (16) Peripheral vascular disease: Noted history of this. Not on antiplatelets are noted above. Holding simvastatin while NPO and lethargic. (17) Chronic gout: Will hold allopurinol while unable to take PO meds (18) Seizure disorder: Valproic acid and Keppra levels ordered (although notably these have previously been normal or low). Continue IV valproic acid and restarted Keppra with neurology oversight pevious EEG - non-seizure activity noted despite head tremor during EEG. Very mild generalized slowing represents a very mild encephalopathy. 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 Suspect from prior stroke in setting of chronic anti-psychotic use. Consult neurology - discussed with Dr Landa and recommend patient is seen tomorrow after another day of medical optimization and psychiatry review of his outpatient medication regimen. (21) Depression: Continue venlafaxine if able to return to PO meds/pt regains cognitive awareness (22) DVT prophylaxis: lovenox daily Patient's brother who is only next of kin we can identify reportedly brother was going to be able to talk to intensive care unit team today around 1500 hrs. Admission and Anticipated Discharge Date Admission Date: January 04, 2020 Subjective did have possible seizure today, given Keppra iv with neurology oversight, pt is now less reactive and maybe post ictal, anticipating family meeting 01/14 Review of Systems Review of Systems: Unable to obtain full ROS due to intubation/sedation status Physical Exam Physical Exam: The patient continues with very little cognitive interaction Vital signs as documented. Lungs remain coarse, failed weaning trial Cardiac exam, Rhythm is regular.. Systolic ejection murmur heard consistent with aortic stenosis Abdominal exam reveals normal bowel sounds, soft, no masses Extremities are nonedematous and both pedal pulses are normal. Neurologic exam is alert to tactile stimuli does not follow commands Patient is seriously ill requiring life support Results & Data Results & Data ([facility]) Vital Signs (Past 12 Hours) Vital Signs Pulse Resp BP Pulse Ox 01/14/20 06:00 83 98 01/14/20 05:33 92 H 18 98 01/14/20 05:08 91 H 22 100 01/14/20 05:01 90 140/84 98 01/14/20 05:00 95 H 98 01/14/20 04:02 84 127/74 97 01/14/20 04:00 87 98 01/14/20 03:02 85 132/64 97 01/14/20 03:00 89 98 01/14/20 02:01 85 122/74 97 01/14/20 02:00 82 98 01/14/20 01:41 79 14 98 01/14/20 01:01 83 136/100 98 01/14/20 01:00 83 98 01/14/20 00:02 78 114/64 97 01/14/20 00:00 87 97 01/13/20 23:01 85 127/72 99 01/13/20 23:00 83 98 01/13/20 22:16 86 19 100 01/13/20 22:01 86 129/84 97 01/13/20 22:00 81 97 01/13/20 21:01 91 H 123/87 98 01/13/20 21:00 83 98 01/13/20 20:01 84 122/74 97 01/13/20 20:00 82 98 PG Care Time/CCT Total # of Minutes Spent Total Time Spent with Patient: Total time spent is greater than 50% in coordination of care (as documented) at patient's floor/unit and/or counseling patient: Coding Level of Care Code 27588 Subseq Hosp Care Lvl 3 Diagnoses Sepsis associated hypotension A41.9; I95.9 Acute respiratory failure with hypoxia J96.01 Pneumonia J18.9 Urinary tract infection N39.0 Acute kidney injury N17.9 Hypernatremia E87.0 Altered mental state R41.82 Schizoaffective disorder, chronic condition F25.8 Psychosis F29 Dementia F03.90 Coronary artery disease I25.10 Diabetes E11.9 Hyperlipidemia E78.5 GERD (gastroesophageal reflux disease) K21.9 Chronic prescription opiate use Z79.891 Peripheral vascular disease I73.9 Chronic gout [id number] Seizure disorder G40.909 Muscle weakness M62.81 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
[2020-01-14] MEDS: LORazepam 1 MG/2 ML VIAL IV PRN (07:49)
[2020-01-14] MEDS ORDERED: ERTAPENEM SODIUM 1,000 MG in SODIUM CHLORIDE 0.9% 50 ML IV SCH (08:00)
--- NOTE | 2020-01-14 08:00 | Critical Care Progress Note ---
Date of Service January 14, 2020 Assessment & Plan (1) Extrapyramidal and movement disorder: Reason Critically Ill: 69-year-old male with sepsis and acute hypoxic respiratory failure superimposed on severe underlying dementia. He has concomitant schizoaffective disorder and is essentially bedbound and nonverbal for the last several years 24-hour events: Transition to pressure support ventilation 10/5 this morning and FiO2 30% doing reasonably well. He has had increasing tremors which nursing describe his potential seizure-like activity with a gaze deviation to the right. 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 According to the neurology notes, he appears close to his baseline. He may have had some breakthrough clinical seizures. He was last seen by neurology about a week ago and they stopped his Keppra. His valproic acid is currently low. Will increase to 500 mg 3 times a day. Keppra was stopped by neurology. I will ask them to reengage to see whether or not repeat EEG is appropriate or whether or not we should restart the Keppra or other antiepileptic medications. He has not had MRI scanning of the brain however I doubt that would significantly change prognosis or treatment at this point time. Resp: Hypoxemic respiratory failure secondary to pneumonia. Patient is at high risk for aspiration events. Chest x-ray demonstrates bibasilar pulmonary infiltrates. Continue to work on weaning from mechanical ventilator. He is tolerating pressure support today. Patient's brother is to be here tomorrow and would like to clearly define goals of therapy before proceeding with extubation. If the patient does well, it may be reasonable trial of extubation before considering tracheostomy however I would be reluctant to pursue trach as I doubt it will significantly improve his long-term prognosis. CV: No current issues. Hemodynamically stable Fluids/Renal: Previous electrolyte abnormalities are now resolved. Kidney function is normal. Volume status and acid-base status are acceptable ID: Completed course of antibiotics for E. coli bacteremia. He now has an extended spectrum Klebsiella in his sputum. White count is climbing. He is not febrile but is possible that his deconditioned state may not permit a febrile response. We will place him on ertapenem and follow white blood cell count. there is an interaction with carbapenems and valproic acid and will discuss with pharmacy. No other good abx alternatives. GI/Nutrition: Tolerating tube feeding. Previously abnormal LFTs have now resolved. Continue PPI Heme: Anemia: Megaloblastic DVT prophylaxis: Lovenox 40 daily Endocrine: Continue glycemic control Vascular access: Peripheral IVs Code Status: Full He had poor functional status prior to admission to the hospital and certainly is not going to be better off because of his current state. We are awaiting arrival of his brother on Saturday to have discussions regarding long-term care. Would not favor tracheostomy and PEG tube placement in this patient with underlying significant neurocognitive deficits. Continuing to work to see if we could get the patient extubated may be reasonable but do not reintubate order would likely be in the patient's long-term best interest (2) Acute respiratory failure with hypoxia: (3) Pneumonia: (4) Sepsis associated hypotension: (5) Acute kidney injury: Admission and Anticipated Discharge Date Admission Date: January 04, 2020 Subjective Intubated. Does not follow commands. Appears to have a preferential gaze to the right. Review of Systems Review of Systems: Unobtainable due to cognitive status, Unobtainable due to endotracheal tube and Unobtainable due to reduced consciousness Physical Exam Constitutional: + ill appearing, + cachectic, + mechanically ventilated and + malnourished Eyes: PERRL, conjunctivae normal, anicteric sclerae Neck: trachea midline, no thyromegaly Cardiovascular: Heart Sounds: normal S1 and normal S2; no murmur Extremities: no edema Gastrointestinal (Abdomen): normal bowel sounds, soft, nontender, no hepatosplenomegaly Results & Data Results & Data ([facility]) Vital Signs (Past 12 Hours) Vital Signs Pulse Resp BP Pulse Ox 01/14/20 06:00 83 98 01/14/20 05:33 92 H 18 98 01/14/20 05:08 91 H 22 100 01/14/20 05:01 90 140/84 98 01/14/20 05:00 95 H 98 01/14/20 04:02 84 127/74 97 01/14/20 04:00 87 98 01/14/20 03:02 85 132/64 97 01/14/20 03:00 89 98 01/14/20 02:01 85 122/74 97 01/14/20 02:00 82 98 01/14/20 01:41 79 14 98 01/14/20 01:01 83 136/100 98 01/14/20 01:00 83 98 01/14/20 00:02 78 114/64 97 01/14/20 00:00 87 97 01/13/20 23:01 85 127/72 99 01/13/20 23:00 83 98 01/13/20 22:16 86 19 100 01/13/20 22:01 86 129/84 97 01/13/20 22:00 81 97 01/13/20 21:01 91 H 123/87 98 01/13/20 21:00 83 98 01/13/20 20:01 84 122/74 97 01/13/20 20:00 82 98 Laboratory Results 01/14/20 04:38 01/14/20 04:38 Sputum culture positive for extended spectrum beta-lactamase producing Klebsiella Diagnostic Findings Chest x-ray from today was independently reviewed. Some expiratory film which accentuates vascular markings. Some hazy perihilar and left lower lobe infiltrates again noted. Coding Level of Care Code Critical Care 1st 30-74 mins Diagnoses Extrapyramidal and movement disorder G25.9 Acute respiratory failure with hypoxia J96.01 Pneumonia J18.9 Sepsis associated hypotension A41.9; I95.9 Acute kidney injury N17.9 Time Spent (min) 45 Comment 45 minutes critical care time including end-of-life discussions and managing life-threatening illness.
[2020-01-14] MEDS: ALBUT/IPRATROP 3MG/0.5MG NEB 3 ML VIAL NEB SCH ×4 (08:18→19:51)
[2020-01-14] MEDS: DIVALPROEX SODIUM SPRINKLE 125 MG CAP PO SCH ×3 (09:06→20:47)
[2020-01-14] MEDS: LANSOPRAZOLE 15 MG SOLTAB PO SCH (09:07)
[2020-01-14] MEDS: CEFTOLOZANE/TAZOBACTAM 3,000 MG in DEXTROSE 5% 100 ML IV SCH ×2 (09:08→16:52)
[2020-01-14] MEDS: INSULIN GLARGINE SOLOSTAR 100 UNITS/ML 3 ML PEN SC SCH ×2 (09:08→20:46)
[2020-01-14] MEDS: ASPIRIN 81 MG CHEW PO SCH (09:12)
[2020-01-14] MEDS: TUBE FEEDING WATER FLUSH GT SCH ×3 (10:10→17:02)
--- NOTE | 2020-01-14 11:30 | Neurology Progress Note ---
Date of Service January 14, 2020 Assessment & Plan (1) Seizure disorder: Seizure disorder likely related to this patient's large, chronic, left frontal lobe infarct with associated encephalomalacia. Seizure episode this morning with eyes driven to the right would suggest a left frontal lobe lo calization. I agree with the recent increase of this patient's Depakote to 500 mg 3 times per day. Would continue to monitor his valproic acid level and transaminases. I would also restart this patient's Keppra which I think will be useful as an adjunctive anticonvulsant. I will write an order for Keppra 500 mg IV every 12 hours as well as a 1000 mg IV loading dose. This medication can be transitioned to p.o. if patient does not have any further seizure episodes over the next few days. I do not think another EEG is necessary at this time as he already has an established diagnosis of seizure disorder as well as likely clinical and radiographic localization. Furthermore, he has not had any further seizures since this morning's episode. (2) Encephalopathy: Acute on chronic encephalopathy, multifactorial with pertinent issues already described in the subjective portion of this progress note. I think the benefit of restarting this patient's Keppra outweighs the potential to have a negative impact on his neurobehavioral status. However, I am restarting him at a slightly lower dosage, only 500 mg every 12 hours as his Depakote dosage was increased. I will follow along. Admission and Anticipated Discharge Date Admission Date: January 04, 2020 Subjective Follow-up for seizure disorder The patient is a 69-year-old male with a history of a large chronic left frontal lobe infarct, seizure disorder, schizoaffective disorder, chronic encephalopathy/dementia, chronic contractures, nonambulatory/bedbound status who presented to the emergency department on January 03, from [facility] for further assessment of lethargy, hypoxia, sepsis, acute respiratory failure, pneumonia, urinary tract infection, acute kidney injury, hypernatremia, altered mental status. He was seen by my colleague, Dr. Landa, on January 04 for assistance in managing this patient's encephalopathy. An EEG completed at that time revealed mild generalized theta slowing and was without epileptiform abnormalities. A CT of the head completed at the time of his initial presentation revealed a large area of chronic encephalomalacia related to an old left frontal lobe infarct with associated ex vacuo ventriculomegaly of the lateral ventricle. There was no evidence of hemorrhage or acute process. I reviewed the images as well as the radiologist's interpretation of this test. Dr. Landa had suggested discontinuing Keppra on January 05 as this medication may contribute to irritability and agitation. His Depakote was continued. I was contacted by this patient's nurse this morning regarding a suspected seizure-like episode that occurred earlier this morning characterized by deviation of the eyes to the right and generalized shaking lasting for about 1 minute. The helicopter repairer subsequently increased his Depakote from 250 mg p.o. 3 times daily to 500 mg p.o. 3 times daily. This patient's last valproic acid level was 31 on January 11. A Keppra level was 29.5 on January 04, prior to discontinuation of this medication. Review of Systems Review of Systems: Unobtainable due to reduced consciousness Results & Data ([place]) Vital Signs (Past 12 Hours) Vital Signs Pulse Resp BP Pulse Ox 01/14/20 10:01 85 120/75 99 01/14/20 09:01 87 117/71 100 01/14/20 08:01 90 113/71 98 01/14/20 07:55 95 H 24 100 01/14/20 07:02 83 105/65 98 01/14/20 06:00 83 98 01/14/20 05:33 92 H 18 98 01/14/20 05:08 91 H 22 100 01/14/20 05:01 90 140/84 98 01/14/20 05:00 95 H 98 01/14/20 04:02 84 127/74 97 01/14/20 04:00 87 98 01/14/20 03:02 85 132/64 97 01/14/20 03:00 89 98 01/14/20 02:01 85 122/74 97 01/14/20 02:00 82 98 01/14/20 01:41 79 14 98 01/14/20 01:01 83 136/100 98 01/14/20 01:00 83 98 01/14/20 00:02 78 114/64 97 01/14/20 00:00 87 97 Exam (Neuro) Physical Exam: The patient is in the ICU, on the ventilator. His eyes are open. He does not respond to voice or follow commands. He does not track objects or the examiner. He does not exhibit gaze deviation or nystagmus at this time. The pupils are equal round and reactive to light. Oculocephalic reflexes intact. Corneal reflexes intact. The patient does not exhibit any abnormal movements or tremors at this time. He does not move the limbs spontaneously or to command. He has generalized contractures, especially the right arm and hand. Deep tendon reflexes increased for the right leg. Coding Level of Care Code 09902 Subseq Hosp Care Lvl 3 Diagnoses Seizure disorder G40.909 Encephalopathy G93.40
[2020-01-14] MEDS ORDERED: levETIRAcetam 1,000 MG in 0.9 % SODIUM CHLORIDE 100 ML IV ONE (12:00)
[2020-01-14] MEDS: ENOXAPARIN INJ 40 MG/0.4 ML SYR SQ SCH (13:02)
[2020-01-14] MEDS: fentaNYL DRIP 1,250 MCG/250 ML BAG IV SCH (14:01)
--- NOTE | 2020-01-14 14:31 | Palliative Care Progress Note ---
Date of Service January 14, 2020 Assessment & Plan (1) Goals of care, counseling/discussion: This is a 69 year old male who was transferred to the [facility] from [facility] after nursing reported his SpO2 to be decreased and he was recently diagnosed with LLL infiltrates. The patient has an extensive past medical history that includes schizoaffective disorder, psychosis, dementia, cad, dm2, HLD, GERD, PVD, gout, seizure, and depression. At baseline, the patient is a alf resident at [facility] at [facility] and is bedbound/wheelchair bound. He is unable to feed himself and all of his ADL needs are anticipated and met by staff at [facility]. The patient was intubated and remains intubated at this time - patient had a seizure with vent weaning trial this a.m. His eyes are open, will blink to confrontation, but does not track. -Brother has not been straightforward with staff-stated that he is the POA and [facility] did have paperwork stating such. [facility] sent over the paperwork for POA which was the girlfriend until she revoked in October 2016. They have no other POA paperwork or other family contacts. -The patient is intubated -The patient does open his eyes, blinks with confrontation but does not track or follow simple commands. -Currently, the patient is a Full Code -Patient's brother, Octaviano, , has not wanted to discuss goals of care by phone-is planning to be at bedside tomorrow morning around 10 AM -medical staff planning to meet with brother and discuss treatment going forward. -Overall, it appears that the patients quality of life is poor at best. -Will continue to follow and assist family with medical decision making (2) Acute respiratory failure with hypoxia: (3) Peripheral vascular disease: (4) Muscle weakness: (5) Schizoaffective disorder, chronic condition: (6) Dementia: (7) Schizophrenia: Subjective Patient seen and examined, no family at bedside. Collaborated with ICU attending, attending hospitalist as well as nursing at bedside. Patient had a seizure during vent weaning trial today. Patient's brother stated he is planning to come to the hospital tomorrow morning at approximately 10 AM to meet with medical staff regarding plan of care. Review of Systems Review of Systems: Unobtainable due to endotracheal tube and Unobtainable due to reduced consciousness Physical Exam Physical Exam: PE: Patient intubated and sedated, moving left lower extremity HEENT: EOMI, positive blink to confrontation Respirations: Coarse breath sounds bilaterally CV: Regular rate, no lower extremity edema Abdomen: Soft, not distended Extremities: Right hemiparesis, moving left lower extremity Neuro: Blinks to confrontation, does not follow simple commands Results & Data Vital Signs (Past 12 Hours) Vital Signs Pulse Resp BP Pulse Ox 01/14/20 10:01 85 120/75 99 01/14/20 09:01 87 117/71 100 01/14/20 08:01 90 113/71 98 01/14/20 07:55 95 H 24 100 01/14/20 07:02 83 105/65 98 01/14/20 06:00 83 98 01/14/20 05:33 92 H 18 98 01/14/20 05:08 91 H 22 100 01/14/20 05:01 90 140/84 98 01/14/20 05:00 95 H 98 01/14/20 04:02 84 127/74 97 01/14/20 04:00 87 98 01/14/20 03:02 85 132/64 97 01/14/20 03:00 89 98 PG Care Time/CCT Total # of Minutes Spent Total Time Spent with Patient: Total time spent 25 minutes with greater than 50% of the time at bedside assessing patient's current status and collaborating with ICU attending and nursing staff on unit. Coding Level of Care Code 08109 Subseq Hosp Care Lvl 2 Diagnoses Goals of care, counseling/discussion Z71.89 Acute respiratory failure with hypoxia J96.01 Peripheral vascular disease I73.9 Muscle weakness M62.81 Schizoaffective disorder, chronic condition F25.8 Dementia F03.90 Schizophrenia F20.9 Time Spent (min) 25
[2020-01-14] MEDS: IMPACT LIQD 1.0 CAL 1,000 ML BAG NG PRN (16:34)
[2020-01-14] MEDS: levETIRAcetam 500 MG in 0.9 % SODIUM CHLORIDE 100 ML IV SCH (20:46)
[2020-01-15] MEDS: FENTANYL BOLUS FROM BAG IV PRN ×2 (00:01→01:00)
[2020-01-15] MEDS: CEFTOLOZANE/TAZOBACTAM 3,000 MG in DEXTROSE 5% 100 ML IV SCH ×3 (00:07→17:09)
[2020-01-15] MEDS: INSULIN ASPART 100 UNITS/ML 3 ML PEN SC SCH ×6 (00:10→20:11)
[2020-01-15] MEDS: TUBE FEEDING WATER FLUSH GT SCH ×4 (04:42→20:12)
[2020-01-15 05:18] LABS: BUN Creatinine Ratio 29.8 (10-20); Calcium 8.8 mg/dl (8.5-10.1); Creatinine Clr Calc Pharmacy 92.3 ml/min; Est GFR (African American) 109.4; Est GFR (Non-African American) 94.4; Magnesium 1.8 mg/dl (1.8-2.4); Phosphorus 2.7 mg/dl (2.5-4.9); Potassium 3.9 mmol/L (3.5-5.1)
[2020-01-15 05:19] LABS: iSTAT Allen Test Pass; iSTAT Art Bld Gas pCO2 Correct 47 mmHg (35-46); iSTAT Art Bld Gas pH Corrected 7.456 (7.35-7.45); iSTAT Arterial Blood Gas HCO3 33 meg/L (19-24); iSTAT Arterial Blood Gas pCO2 47 mmHg (35-46); iSTAT Arterial Blood Gas pH 7.46 (7.35-7.45); iSTAT Arterial Blood Gas pO2 81 mmHg (80-95); iSTAT Arterial Blood Gas pO2 C 81; iSTAT Carbon Dioxide 34 mmol/L (24-31); iSTAT FiO2 30 %; iSTAT Hematocrit 28 % (42-52); iSTAT Hemoglobin 9.5 g/dl (14.0-18.0); iSTAT Potassium 3.9 mmol/L (3.3-5.0); iSTAT Site L Radial; iSTAT Sodium 131 mmol/L (135-144)
[2020-01-15 05:31] LABS: Basophils # (auto) 0.04 K/uL (0-0.2); Basophils % (auto) 0.3 %; Eosinophils # (auto) 0.11 K/uL (0-0.5); Eosinophils % (auto) 0.7 %; Hematocrit (blood only) 30.4 % (42-52); Hemoglobin 10.1 g/dL (14.0-18.0); Immature Granulocytes # (auto) 0.29 K/uL (0.00-0.02); Immature Granulocytes % (auto) 1.9 %; Lymphocytes # (auto) 2.68 K/uL (1.2-3.4); Lymphocytes % (auto) 17.2 %; Mean Corpuscular Volume 93.3 fL (80-100); Monocytes # (auto) 1.17 K/uL (0.11-0.59); Monocytes % (auto) 7.5 %; Neutrophils # (auto) 11.31 K/uL (1.4-6.5); Neutrophils % (auto) 72.4 %; Platelet Count 369 K/uL (130-400); RDW Coefficient of Variation 13.6 % (11.5-14.5); RDW Standard Deviation 46.4 fL (36.4-46.3); Red Blood Count 3.26 M/uL (4.7-6.1)
[2020-01-15 05:32] LABS: Mean Corpuscular Hgb Conc 33.2 g/dL (32-36)
[2020-01-15] MEDS ORDERED: ICU ELECTROLYTE REPLACEMENT PROTOCOL PRN (06:31)
--- NOTE | 2020-01-15 07:15 | Hospitalist Progress Note ---
Date of Service January 15, 2020 Assessment & Plan (1) Sepsis associated hypotension: gram negatives in blood and urine growing quinalone resistant E Coli resolved now ESBL Klebsiella in sputum, antibiotics changed to Ceftolazone tazobactam after sputum grew ESBL Klebsiella (2) Acute respiratory failure with hypoxia: Pt intubated and ventilated, managed by icu team Poor response attempted weaning trials concern for persistent ventilation required. weaning trial of 01/13 resulted inseizure like activity Concerns for recurrent aspiration and protecting airway Discussion with family and the critical care attending on sunday 01/14 with decision for DNR but not (3) Pneumonia: Aspiration vs. Health-care acquired (in [facility]). ESBL klebsiella grew, now on ceftolzone/tazobactam (4) Urinary tract infection: treated (5) Acute kidney injury: Suspected prerenal due to acute infection, dehydration (poor oral intake) and meloxicam use. Resolved Continue holding meloxicam. Patient is on tube feeds resolved hypernatremia. (6) Hypernatremia: Increased on admission due to NSS given as boluses in ER and to some extent LR maintenance. Unlikely DI given no polyuria noted. Resolved (7) Altered mental state: metabolic encephalopathy CT head negative for acute intracranial abnormality EEG unremarkable. neurology feels may stop Keppra and eval for clinical changes, no immediate need for antiepileptics valproic acid level is low however this is likely more used for mood stabilization then antiepileptic effects (8) Schizoaffective disorder, chronic condition: previously taking both Seroquel 100 mg twice daily (although notably on Seroquel 150mg TID in 2015) and haloperidol 2mg PO BID and 25 mg IM monthly. Consult psychiatry did not feel that delirium is related to his psychotropic medications. (9) Psychosis: He has remained intubated. Continue to be unable to determine delusion or hallucinations given dementia and current cognitive state. Haloperidol as needed (10) Dementia: Noted history of stroke with old left cerebral infarct. Although Alzheimer's noted on prior problem list I suspect his prior stroke and medication are likely contributory. (11) Coronary artery disease: Unclear history of this. No prior stents or CABG Echocardiogram performed 01/03 shows normal EF, severe aortic stenosis. (12) Diabetes: HbA1C 6.6 Continue Novolog correction factor for now, plus scheduled lantus given reliable calorie intake (13) Hyperlipidemia: Hold simvastatin while NPO (14) GERD (gastroesophageal reflux disease): Switch omeprazole PO 20mg QAM to famotidine 20mg IV daily while NPO (15) Chronic prescription opiate use: Fentanyl patch removed on admission On chronic opiates for right foot and right hand pain. Also taking Meloxicam 15mg QAM and [place] Q6H OFE as per prior documentation meds are on hold with sedation for ventilation (16) Peripheral vascular disease: Noted history of this. Not on antiplatelets are noted above. Holding simvastatin while NPO and lethargic. (17) Chronic gout: previously on allopurinol (18) Seizure disorder: Valproic acid and Keppra levels ordered (although notably these have p reviously been normal or low). Continue IV valproic acid and restarted Keppra with neurology oversight after apparent seizure during weaning trial 01/13 pevious EEG - non-seizure activity noted despite head tremor during EEG. Very mild generalized slowing represents a very mild encephalopathy. 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 Suspect from prior stroke in setting of chronic anti-psychotic use. Consult neurology - discussed with Dr Landa and now followed by Dr Best this week (21) Depression: previously on venlafaxine (22) DVT prophylaxis: lovenox daily Patient's brother who is only next of kin we can identify reportedly brother was going to be able to talk to intensive care unit team will have family meeting 01/14 Admission and Anticipated Discharge Date Admission Date: January 04, 2020 Subjective did have possible seizure 01/13, given Keppra iv with neurology oversight, pt is now less reactive and maybe post ictal, family meeting 01/14 there are strong jehovah's witness overtones regarding sanctity of live and living and the next of kin, Octaviano, feels he cannot determine end of life, he is comfortable making the pt DNR at this time and did consent to a tracheostomy and PICC line, will address PEG tube if pt continues to progress Review of Systems Review of Systems: Unable to obtain full ROS due to intubation/sedation status Physical Exam Physical Exam: The patient continues with very little cognitive interaction pt does have more spontaneous movements of legs when the family is in the room Vital signs as documented. Lungs remain coarse, failed weaning trial Cardiac exam, Rhythm is regular.. Systolic ejection murmur heard consistent with aortic stenosis Abdominal exam reveals normal bowel sounds, soft, no masses Extremities are nonedematous and both pedal pulses are normal. Neurologic exam is alert to tactile stimuli does not follow commands Patient is seriously ill requiring life support Results & Data Results & Data ([facility]) Vital Signs (Past 12 Hours) Vital Signs Temp Pulse Resp BP Pulse Ox 01/15/20 06:02 97 H 142/84 H 98 01/15/20 06:00 94 H 35 H 98 01/15/20 05:02 89 115/70 97 01/15/20 05:00 90 97 01/15/20 04:02 95 H 132/80 98 01/15/20 04:00 99.1 F 01/15/20 03:38 92 H 16 97 01/15/20 03:02 92 H 128/75 98 01/15/20 02:02 92 H 105/69 100 01/15/20 02:00 90 99 01/15/20 01:00 102 H 01/15/20 00:02 90 139/83 98 01/14/20 23:53 85 01/14/20 23:35 90 19 98 01/14/20 23:02 99.1 F 80 108/63 99 01/14/20 22:02 81 111/69 100 01/14/20 21:02 99 H 32 H 148/95 H 99 01/14/20 20:13 95 H 8 L 99 01/14/20 20:02 98 H 24 140/81 100 01/14/20 20:00 100 H PG Care Time/CCT Total # of Minutes Spent Total Time Spent with Patient: Total time spent is greater than 50% in coordination of care (as documented) at patient's floor/unit and/or counseling patient: Coding Level of Care Code 70628 Subseq Hosp Care Lvl 2 Diagnoses Sepsis associated hypotension A41.9; I95.9 Acute respiratory failure with hypoxia J96.01 Pneumonia J18.9 Urinary tract infection N39.0 Acute kidney injury N17.9 Hypernatremia E87.0 Altered mental state R41.82 Schizoaffective disorder, chronic condition F25.8 Psychosis F29 Dementia F03.90 Coronary artery disease I25.10 Diabetes E11.9 Hyperlipidemia E78.5 GERD (gastroesophageal reflux disease) K21.9 Chronic prescription opiate use Z79.891 Peripheral vascular disease I73.9 Chronic gout [id number] Seizure disorder G40.909 Muscle weakness M62.81 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
[2020-01-15] MEDS: ALBUT/IPRATROP 3MG/0.5MG NEB 3 ML VIAL NEB SCH ×4 (07:44→19:38)
[2020-01-15] MEDS: INSULIN GLARGINE SOLOSTAR 100 UNITS/ML 3 ML PEN SC SCH ×2 (07:56→20:13)
[2020-01-15] MEDS: DIVALPROEX SODIUM SPRINKLE 125 MG CAP PO SCH ×3 (07:57→20:13)
[2020-01-15] MEDS: LANSOPRAZOLE 15 MG SOLTAB PO SCH (07:59)
[2020-01-15] MEDS: ASPIRIN 81 MG CHEW PO SCH (07:59)
[2020-01-15] MEDS ORDERED: MAGNESIUM SULFATE / D5W 1 GM/100 ML BAG IV ONE (08:30)
[2020-01-15] MEDS: levETIRAcetam 500 MG in 0.9 % SODIUM CHLORIDE 100 ML IV SCH ×2 (08:46→20:19)
[2020-01-15] MEDS: POTASSIUM CHLORIDE 20 MEQ/15 ML UDC PO SCH ×2 (08:57→11:49)
[2020-01-15 10:36] LABS: iSTAT Hematocrit 33 % (42-52); iSTAT Hemoglobin 11.2 g/dl (14.0-18.0); iSTAT Potassium 4.2 mmol/L (3.3-5.0); iSTAT Sodium 131 mmol/L (135-144)
[2020-01-15 10:37] LABS: iSTAT Art Bld Gas pCO2 Correct 43 mmHg (35-46); iSTAT Art Bld Gas pH Corrected 7.456 (7.35-7.45); iSTAT Arterial Blood Gas HCO3 30 meg/L (19-24); iSTAT Arterial Blood Gas pCO2 42 mmHg (35-46); iSTAT Arterial Blood Gas pH 7.46 (7.35-7.45); iSTAT Arterial Blood Gas pO2 75 mmHg (80-95); iSTAT Arterial Blood Gas pO2 C 76; iSTAT Carbon Dioxide 31 mmol/L (24-31)
[2020-01-15 10:38] LABS: Patient Temperature 37.2; iSTAT Sample Type Arterial; iSTAT Site L Radial
[2020-01-15 10:39] LABS: iSTAT Allen Test Acceptable; iSTAT SpO2 97
[2020-01-15] MEDS ORDERED: fentaNYL citrate 100 MCG/2 ML VIAL IV PRN (10:43)
[2020-01-15] MEDS ORDERED: VECURONIUM BROMIDE 10 MG VIAL IV STA (11:42)
[2020-01-15] MEDS ORDERED: fentaNYL citrate 100 MCG/2 ML VIAL IV STA (11:42)
[2020-01-15] MEDS ORDERED: MIDAZOLAM HCL 1 MG/ML 2ML VIAL IV STA (11:46)
--- NOTE | 2020-01-15 12:10 | Critical Care Progress Note ---
Date of Service January 15, 2020 Assessment & Plan (1) Extrapyramidal and movement disorder: Reason Critically Ill: 69-year-old male with sepsis and acute hypoxic respiratory failure superimposed on severe underlying dementia. He has concomitant schizoaffective disorder and is essentially bedbound and nonverbal for the last several years 24-hour events: Valproic acid level increased. Discussed with neurology. Keppra restarted. No indication for repeat EEG or additional neuroimaging. No additional seizure activity identified. Patient failed SBT this morning due to tachypnea and hypoxemia. He did tolerate a prolonged pressure support. Yester day. Met with brother at bedside. He states the patient is always valued life and would want to be kept alive as long as possible. He did agree to no chest compressions or resuscitation in the event of a cardiac arrest but would like to pursue tracheostomy, PEG tube placement, and potential placement at long-term acute care facility. 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 According to the neurology notes, he appears close to his baseline. Continue current medications with higher dose of valproic acid and restarting Keppra and follow clinically. Will recheck valproic acid levels in a few days try and maintain at around 75. Discussed with pharmacy Resp: Hypoxemic respiratory failure secondary to pneumonia. Patient is at high risk for aspiration events. Chest x-ray demonstrates bibasilar pulmonary infiltrates. He is clinically stagnant regarding weaning from the ventilator and we are currently day #11. I met with the patient's brother today and discussed options to include optimizing his pulmonary status and pursuing extubation without plans for reintubation versus pursuing tracheostomy and long- term placement. POA is in agreement with pursuing bedside percutaneous dilatation of tracheostomy which will be accomplished today. We will continue to work on vent weaning as tolerated. I suspect the patient will have recurrent issues with aspiration pneumonia so would be reluctant to remove trach once it is placed. I see no significant improvement in his future with regards to neurological issues. CV: No current issues. Hemodynamically stable Fluids/Renal: Previous electrolyte abnormalities are now resolved. Kidney function is normal. Volume status and acid-base status are acceptable ID: Completed course of antibiotics for E. coli bacteremia. He now has an extended spectrum Klebsiella in his sputum. White count is climbing. He is not febrile but is possible that his deconditioned state may not permit a febrile response. Day #2/ [facility] GI/Nutrition: Tolerating tube feeding. Previously abnormal LFTs have now resolved. Continue PPI. Will need to consult GI for possible PEG tube placement next week. Heme: Anemia: Megaloblastic DVT prophylaxis: Lovenox 40 daily Endocrine: Continue glycemic control Vascular access: Peripheral IVs, consult placed for PICC Code Status: No compressions or shocks Had long discussion with the patient's brother, Ole who is acting as POA. He states that the patient is always valued life and he would like to pursue life as long as possible. We did discuss DNR status in the event the patient were to have a life-threatening illness and Ole is in agreement that CPR were additional aggressive interventions would not be in the best interest of the patient. He will have his CODE STATUS adjusted to DNR. Ole would like to pursue feeding tube placement and tracheostomy with continued vent weaning and possible placement at an LTAC or extended care facility if possible. Discussed with case management as well as with Dr. Colon. We will continue to work towards trach collar trials. If the patient is no longer vent dependent, he may be able to be transferred to the floor pending ultimate disposition (2) Acute respiratory failure with hypoxia: (3) Pneumonia: (4) Sepsis associated hypotension: (5) Acute kidney injury: Admission and Anticipated Discharge Date Admission Date: January 04, 2020 Subjective Patient remains nonverbal on the ventilator. He is awake with eyes open but does not follow commands Review of Systems Review of Systems: Unobtainable due to cognitive status and Unobtainable due to endotracheal tube Physical Exam Constitutional: + ill appearing, + cachectic, + mechanically ventilated and + malnourished Eyes: PERRL, conjunctivae normal, anicteric sclerae Neck: trachea midline, no thyromegaly Cardiovascular: Heart Sounds: normal S1 and normal S2; no murmur Extremities: no edema Gastrointestinal (Abdomen): normal bowel sounds, soft, nontender, no hepatosplenomegaly Results & Data Results & Data ([facility]) Vital Signs (Past 12 Hours) Vital Signs Temp Pulse Resp BP Pulse Ox 01/15/20 10:52 90 36 H 98 01/15/20 07:35 76 11 L 97 01/15/20 07:00 78 01/15/20 06:02 97 H 142/84 H 98 01/15/20 06:00 94 H 35 H 98 01/15/20 05:02 89 115/70 97 01/15/20 05:00 90 97 01/15/20 04:02 95 H 132/80 98 01/15/20 04:00 37.3 C 01/15/20 03:38 92 H 16 97 01/15/20 03:02 92 H 128/75 98 01/15/20 02:02 92 H 105/69 100 01/15/20 02:00 90 99 01/15/20 01:00 102 H Laboratory Results 01/15/20 05:21 01/15/20 04:48 01/04/20 01/05/20 17:03 12:52 VBG pH 7.47 H 7.39 VBG pCO2 43 41 VBG pO2 42 86 VBG HCO3 31 25 VBG O2 Saturation 77.1 96.7 VBG Base Excess 6.1 -0.4 Diagnostic Findings No new imaging Coding Level of Care Code Critical Care 1st 30-74 mins Diagnoses Extrapyramidal and movement disorder G25.9 Acute respiratory failure with hypoxia J96.01 Pneumonia J18.9 Sepsis associated hypotension A41.9; I95.9 Acute kidney injury N17.9 Time Spent (min) 50 Comment 50 minutes critical care time including end-of-life discussions with family.
[2020-01-15] MEDS ORDERED: PROPOFOL IV EMULSION 10 MG/ML 100 ML VIAL IV ONE (14:01)
--- NOTE | 2020-01-15 14:47 | Procedure Note ---
Procedure Note Date of Service January 15, 2020 Procedure Name: Fiberoptic bronchoscopy for placement of percutaneous tracheostomy tube Procedure time out: side/site verified, patient ID confirmed, correct procedure Consent obtained: written (The risks, benefits, indications, potential complications, and alternatives were explained to the family and informed consent obtained by Dr. Birch.) Time of procedure: 14:05 Performed by: physician tank bottom assembler, Surinder Cooley PA-C Contraindications: None. PT/INR and APTT were checked. Platelet count was above 300,000. Indication: Patient requiring percutaneous placement of tracheostomy tube. Fiberoptic bronchoscopy required for clearance of secretions prior to the procedure, visualization of cannulization, and verification of airways status post procedure. Description: After positioning of the endotracheal tube via video assisted laryngoscopy, the fiberoptic bronchoscope was introduced into the endotracheal tube. The needle entry site in the trachea midline was visualized as was the placement of the guidewire into the distal trachea. After placement of the tracheostomy tube, the bronchoscope was withdrawn from the endotracheal tube and introduced through the tracheostomy tube to confirm correct placement in the airway. The bronchoscope was then withdrawn to allow suturing of the tracheostomy tube into position. The bronchoscope was then introduced into the tracheostomy tube. No bronchioalveolar lavage was performed. The right and main left bronchus as well as the segmental branches of the right middle and right lower lobe and left upper, lingula and left lower lobes were examined with no blood or other mucous plugging. There were minimal secretions at the miguel. There was a nodule located at the miguel. This was not biopsied but was photographed. There was no evidence of bronchial trauma on the final examination with the fiberoptic bronchoscope. After confirmation of position and securement of the tracheostomy tube the endotracheal tube was removed. The patient experienced no desaturation or complication during the procedure. Dr. Birch was present for the entire procedure as he was performing a percutaneous tracheostomy placement Complications: none Patient tolerated procedure: well Post-procedure vital signs: reviewed and stable Comments: The patient received fentanyl and versed for conscious sedation with a secured airway. Patient also received vecuronium for neuromuscular blockade. This was ordered, administered, and monitored by Dr. Birch during my portion of the procedure Coding CPT Codes Pulmonary/Thoracic - Pulmonary and Thoracic: 36793 Tracheotomy tube change ([id number]) [facility] [place] Procedure Codes (Charges) Pulmonary/Thoracic Procedure 1: Pulmonary and Thoracic: 64993 Tracheotomy tube change
--- NOTE | 2020-01-15 14:51 | Procedure Note ---
Procedure Note Date of Service January 15, 2020 Procedure: Bedside percutaneous dilatation tracheostomy. Indication: Persistent respiratory failure Kiln Feeder: Dr. Birch Bow Stapler: Surinder HINKLE Anesthesia: 10 mL's IV propofol, 100 mcg fentanyl, 6 mg Versed, and 10 mL's topical 1% lidocaine with epinephrine as well as 10 mg of vecuronium. Consent: Risks and benefits have been discussed with the patient's brother who is the POA. Consent was verified. A timeout was completed prior to commencement of the procedure. Appropriate radiographic and laboratory studies were reviewed. Estimated blood loss: Less than 10 mL's Procedure: The patient is in the intensive care unit with hypoxemic respiratory failure. He is currently day 11 on the mechanical ventilator with minimal progress in weaning from the ventilator. Brother had been updated regarding inability to wean the patient from the ventilator. We discussed options includ ing placement of tracheostomy to facilitate weaning and placement. He agreed. The patient was placed in a supine position. He is on the mechanical ventilator. He was placed on 100% FiO2. He was placed supine and neck rolls were placed under the shoulders. Appropriate sedation and paralysis was achieved through the IV. Once the neck was extended, landmarks were easily visible and palpable. A limited ultrasound was performed over the anterior trachea just below the cricoid cartilage. No large vascular structures were identified. A sterile field was established with chlorhexidine which was allowed to dry completely. Once the sterile field was established, the tracheal and cricoid rings were easily palpable. An area approximately 1cm distal to the cricoid cartilage was palpated and injected with 10 mL's of 1% lidocaine without epinephrine. Using an 11 blade scalpel, a 1.5 cm horizontal incision was made over the trachea. Blunt dissection using the finger and curved hemostats was conducted down until the tracheal rings could be palpated with the finger. At that point time MANAN flores had advanced the fiberoptic bronchoscope through the existing endotracheal tube. The balloon was deflated on the endotracheal tube and the existing ET tube was withdrawn over the fiberoptic bronchoscope to the level of the glottis. I was able to directly visualize external ballottement of the anterior trachea using the curved hemostats through the bronchoscope. Site appropriate for dilatation of tracheostomy was selected. The 18-gauge catheter over the needle apparatus was then advanced through the anterior wall the trachea entering between the first and second ring. The needle was observed to enter the airway at the 12 o'clock position. The needle was withdrawn and the catheter left in place. A wire was advanced through the catheter and observed to be extending into the distal airways without difficulty. Serial dilatation of the tract over the wire was then conducted including the Blue Rhino catheter. A guiding catheter was left in place. A previously tested 8 oh nonfenestrated Shiley catheter had been loaded onto a delivery catheter. This was then loaded over the wire and the guiding catheter into the airway. Once the trach was well seated, the guiding catheter, wire, and delivery catheter were removed leaving the tracheostomy in the airway. MANAN flores then withdrew the fiberoptic bronchoscope from the endotracheal tube and advanced it through the newly placed tracheostomy and verified the tube to be within the airway in good position. No significant bleeding was encountered. The inner cannula was placed in the tracheostomy and the patient was attached to the ventilator with return of good tidal volumes. The tube was then secured with 2-0 Vicryl sutures at the 12:00 and 6:00 positions of the tracheostomy. Trach ties were used as well as a drain sponge applied. The patient remained sedated on the ventilator. He tolerated the procedure well with only transient decreases in blood pressure associated with administration of sedation which responded to administration of IV fluids. Coding CPT Codes Sedation/Anesthesia - Sedation/Anesthesia: 25596 Mod Sedation by the same physician;Init15 Min Child Age 5 & Up ([id number]) Sedation/Anesthesia - Sedation/Anesthesia: 80444 Mod Sedation by the same physician; Ea [id number] Minutes ([id number]) ENT - ENT: 52176 Incision of windpipe ([id number]) [facility] [place] Procedure Codes (Charges) ENT ENT: 09077 Incision of windpipe Sedation/Anesthesia Procedure 2: Sedation/Anesthesia: 59792 Mod Sedation by the same physician;Init15 Min Child Age 5 & Up Total Sedation Time (minutes): 25 Procedure 3: Sedation/Anesthesia: 00016 Mod Sedation by the same physician; Ea [id number] Minutes Total Sedation Time (minutes): 25
[2020-01-15] MEDS: IMPACT LIQD 1.0 CAL 1,000 ML BAG NG PRN (15:00)
[2020-01-15] MEDS: ENOXAPARIN INJ 40 MG/0.4 ML SYR SQ SCH (15:01)
[2020-01-16] MEDS: CEFTOLOZANE/TAZOBACTAM 3,000 MG in DEXTROSE 5% 100 ML IV SCH ×3 (00:09→17:44)
[2020-01-16] MEDS: INSULIN ASPART 100 UNITS/ML 3 ML PEN SC SCH ×6 (00:10→20:51)
[2020-01-16 04:31] LABS: Basophils # (auto) 0.01 K/uL (0-0.2); Basophils % (auto) 0.1 %; Eosinophils # (auto) 0.04 K/uL (0-0.5); Eosinophils % (auto) 0.3 %; Hematocrit (blood only) 28.7 % (42-52); Hemoglobin 10.1 g/dL (14.0-18.0); Immature Granulocytes # (auto) 0.23 K/uL (0.00-0.02); Immature Granulocytes % (auto) 1.5 %; Mean Corpuscular Hemoglobin 32.9 pg (25-34); Mean Corpuscular Hgb Conc 35.2 g/dL (32-36); Mean Corpuscular Volume 93.5 fL (80-100); Mean Platelet Volume 8.6 fL (7.4-10.4); Monocytes # (auto) 1.33 K/uL (0.11-0.59); Monocytes % (auto) 8.4 %; Neutrophils # (auto) 12.32 K/uL (1.4-6.5); Neutrophils % (auto) 77.7 %; Platelet Count 378 K/uL (130-400); RDW Coefficient of Variation 13.6 % (11.5-14.5); RDW Standard Deviation 46.3 fL (36.4-46.3); Red Blood Count 3.07 M/uL (4.7-6.1); White Blood Count 15.83 K/uL (4.8-10.8)
[2020-01-16] MEDS: TUBE FEEDING WATER FLUSH GT SCH ×3 (04:43→20:51)
[2020-01-16 04:50] LABS: BUN Creatinine Ratio 26.9 (10-20); Creatinine Clr Calc Pharmacy 87.4 ml/min; Est GFR (Non-African American) 92.3; Magnesium 1.9 mg/dl (1.8-2.4); Phosphorus 2.8 mg/dl (2.5-4.9); Potassium 4.3 mmol/L (3.5-5.1)
[2020-01-16] MEDS ORDERED: MAGNESIUM SULFATE / D5W 1 GM/100 ML BAG IV ONE (05:00)
[2020-01-16 05:51] LABS: iSTAT Allen Test Pass; iSTAT Arterial Blood Gas HCO3 32 meg/L (19-24); iSTAT Arterial Blood Gas pCO2 36 mmHg (35-46); iSTAT Arterial Blood Gas pH 7.56 (7.35-7.45); iSTAT Arterial Blood Gas pO2 88 mmHg (80-95); iSTAT Carbon Dioxide 33 mmol/L (24-31); iSTAT Site L Radial
--- NOTE | 2020-01-16 07:10 | Hospitalist Progress Note ---
Date of Service January 16, 2020 Assessment & Plan (1) Sepsis associated hypotension: gram negatives in blood and urine growing quinalone resistant E Coli resolved now ESBL Klebsiella in sputum, antibiotics changed to Ceftolazone tazobactam after sputum grew ESBL Klebsiella (2) Acute respiratory failure with hypoxia: Pt intubated and ventilated, managed by icu team Poor response attempted weaning trials concern for persistent ventilation required. weaning trial of 01/13 resulted inseizure like activity Concerns for recurrent aspiration and protecting airway Discussion with family and the critical care attending on sunday 01/14 with decision for DNR but not (3) Pneumonia: Aspiration vs. Health-care acquired (in snf setting). ESBL klebsiella grew, now on ceftolzone/tazobactam (4) Urinary tract infection: treated (5) Acute kidney injury: Suspected prerenal due to acute infection, dehydration (poor oral intake) and meloxicam use. Resolved Continue holding meloxicam. Patient is on tube feeds resolved hypernatremia. (6) Hypernatremia: Increased on admission due to NSS given as boluses in ER and to some extent LR maintenance. Unlikely DI given no polyuria noted. Resolved (7) Altered mental state: metabolic encephalopathy CT head negative for acute intracranial abnormality EEG unremarkable (8) Schizoaffective disorder, chronic condition: previously taking both Seroquel 100 mg twice daily (although notably on Seroquel 150mg TID in 2014) and haloperidol 2mg PO BID and 25 mg IM monthly. Consult psychiatry did not feel that delirium is related to his psychotropic medications. (9) Psychosis: He has remained ventilated with support now via tracheostomy which was placed on 01/14. Continue to be unable to determine delusion or hallucinations given dementia and current cognitive state. Haloperidol as needed (10) Dementia: Noted history of stroke with old left cerebral infarct. Although Alzheimer's noted on prior problem list I suspect his prior stroke and medication are likely contributory. (11) Coronary artery disease: Unclear history of this. No prior stents or CABG Echocardiogram performed 01/03 shows normal EF, severe aortic stenosis. (12) Diabetes: HbA1C 6.6 Continue Novolog correction factor for now, plus scheduled lantus given reliable calorie intake (13) Hyperlipidemia: Hold simvastatin while NPO (14) GERD (gastroesophageal reflux disease): Now on Pepcid via his NG tube (15) Chronic prescription opiate use: Fentanyl patch removed on admission On chronic opiates for right foot and right hand pain. Also taking Meloxicam 15mg QAM and [place] Q6H OFE as per prior documentation meds are on hold with sedation for ventilation (16) Peripheral vascular disease: Noted history of this. Not on antiplatelets are noted above. Holding simvastatin while NPO and lethargic. (17) Chronic gout: previously on allopurinol (18) Seizure disorder: Valproic acid and Keppra levels ordered (although notably these have previously been normal or low). Continue IV valproic acid and restarted Keppra with neurology oversight after apparent seizure during weaning trial 01/13 pevious EEG - non-seizure activity noted despite head tremor during EEG. Very mild generalized slowing represents a very mild encephalopathy. 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 Suspect from prior stroke in setting of chronic anti-psychotic use. Consult neurology -is following and adjusting antiepileptic medications (21) Depression: previously on venlafaxine (22) DVT prophylaxis: lovenox daily Patient's brother who is only next of kin we can identify reportedly brother was going to be able to talk to intensive care unit team will have family meeting 01/14, there are strong sikh overtones regarding sanctity of live and living and the next of kin, Octaviano, feels he cannot determine end of life, he is comfortable making the pt DNR at this time and did consent to a tracheostomy and PICC line, will address PEG tube if pt continues to progress. A point he came out during the family meeting was that Mr. Errol Hinojosa initially presented to [place] ER years ago with evolving stroke the brother is now suspicious of healthcare providers as he feels that situation may have been managed more timely to prevent the deficit that landed this patient in [facility]. Subsequently this brother is confident in healthcare providers and sometimes resistant to making timely decisions until he is got complete time to decide Admission and Anticipated Discharge Date Admission Date: January 04, 2020 Subjective Patient remains without tracking or responsiveness or following commands he is moving spontaneously slightly more often and he seems to be gagging or using his tongue to try to push things out of his mouth at this time however would not respond to any commands Review of Systems Review of Systems: Unable to obtain full ROS due to intubation/sedation status Physical Exam Physical Exam: The patient continues with very little cognitive interaction pt does have more spontaneous movements of legs when the family is in the room Vital signs as documented. Lungs remain coarse, failed weaning trial Cardiac exam, Rhythm is regular.. Systolic ejection murmur heard consistent with aortic stenosis Abdominal exam reveals normal bowel sounds, soft, no masses Extremities are nonedematous and both pedal pulses are normal. Neurologic exam is alert to tactile stimuli does not follow commands Patient is seriously ill requiring life support Results & Data Results & Data ([facility]) Vital Signs (Past 12 Hours) Vital Signs Temp Pulse Resp BP Pulse Ox 01/16/20 05:05 79 12 98 01/16/20 05:00 84 98 01/16/20 04:50 83 118/83 99 01/16/20 04:00 98.8 F 86 97 01/16/20 03:50 93 H 146/83 H 98 01/16/20 03:00 94 H 98 01/16/20 02:50 92 H 135/86 97 01/16/20 02:00 86 98 01/16/20 01:50 82 120/73 98 01/16/20 01:33 79 16 97 01/16/20 01:00 97 H 97 01/16/20 00:50 93 H 158/83 H 98 01/16/20 00:00 98.6 F 92 H 98 01/15/20 23:50 95 H 157/90 H 97 01/15/20 23:12 82 17 96 01/15/20 23:00 80 100 01/15/20 22:50 82 126/75 99 01/15/20 22:00 98 H 98 01/15/20 21:50 94 H 148/81 H 97 01/15/20 21:00 84 97 01/15/20 20:50 91 H 137/78 98 01/15/20 20:24 95 H 24 97 01/15/20 20:00 98.6 F 95 H 94 01/15/20 19:50 92 H 146/84 H 97 PG Care Time/CCT Total # of Minutes Spent Total Time Spent with Patient: Total time spent is greater than 50% in tripe cooker rdination of care (as documented) at patient's floor/unit and/or counseling patient: Coding Level of Care Code 82543 Subseq Hosp Care Lvl 2 Diagnoses Sepsis associated hypotension A41.9; I95.9 Acute respiratory failure with hypoxia J96.01 Pneumonia J18.9 Urinary tract infection N39.0 Acute kidney injury N17.9 Hypernatremia E87.0 Altered mental state R41.82 Schizoaffective disorder, chronic condition F25.8 Psychosis F29 Dementia F03.90 Coronary artery disease I25.10 Diabetes E11.9 Hyperlipidemia E78.5 GERD (gastroesophageal reflux disease) K21.9 Chronic prescription opiate use Z79.891 Peripheral vascular disease I73.9 Chronic gout [id number] Seizure disorder G40.909 Muscle weakness M62.81 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
--- NOTE | 2020-01-16 08:10 | XRay Report ---
XR chest 1V portable CLINICAL HISTORY: Respiratory failure. COMPARISON STUDY: Chest radiograph January 14, 2020. FINDINGS: Tracheostomy tube is in place. Tip of nasogastric tube is below the lower aspect of this im age but at least within the proximal body of the stomach. Lung volumes are diminished. This is unchan ged. Interstitial thickening has slightly improved. There are persistent bibasilar opacities. No pneu mothorax or pleural effusion is noted. Mild cardiomegaly is unchanged. Right PICC is in place. IMPRESSION: 1. Interval tracheostomy. 2. Interval improvement in interstitial thickening. Persistent bibasilar opacities with low lung volu mes. ACT 112: Negative or not required by law. Electronically signed by: Tee Eddy M.D. 01/16/2020 8:09 AM
--- NOTE | 2020-01-16 08:12 | Critical Care Progress Note ---
Date of Service January 16, 2020 Assessment & Plan (1) Extrapyramidal and movement disorder: Reason Critically Ill: 69-year-old male with sepsis and acute hypoxic respiratory failure superimposed on severe underlying dementia. He has concomitant schizoaffective disorder and is essentially bedbound and nonverbal for the last several years 24-hour events: Met with brother. Brother states that the patient has always expressed a desire to maintain life and wants to live as long as possible. He did agree that in the event of a cardiac arrest, CPR and defibrillation would likely not be warranted and the patient status was changed to no compressions no defibrillation. Discussed with case management and are working on LTAC although given the patient's Medicaid status, it is unlikely this would be accomplished anytime in the near future. Consented for trach and PICC line. Both procedures were accomplished uneventfully. He was trialed on pressure support ventilation/CPAP again this morning but failed due to tachypnea. He has been hemodynamically stable. Tube feeds have been reinitiated and are running at goal PLAN: Neuro: Underlying advanced dementia as well as schizoaffective disorder with some extra pyramidal movement disorder related to medications. According to the neurology notes, he appears close to his baseline. Continue current medications with higher dose of valproic acid and restarting Keppra and follow clinically. Will recheck valproic acid levels in a few days try and maintain at around 75. Resp: Hypoxemic respiratory failure secondary to pneumonia. Patient is at high risk for aspiration events. Chest x-ray demonstrates bibasilar pulmonary infiltrates. Status post bedside percutaneous tracheostomy 01/14. Continue to try to progress to CPAP/PS V and trach collar trials as tolerated. I suspect the patient will have recurrent issues with aspiration pneumonia so would be reluctant to remove trach once it is placed. I see no significant improvement in his future with regards to neurological issues. Case management working on placement which will be complicated by his payor status. We will continue to work and see if we can get him to trach collar trials which may make him eligible for retirement facilities rather than LTAC. Would anticipate a prolonged hospital stay CV: No current issues. Hemodynamically stable Fluids/Renal: Previous electrolyte abnormalities are now resolved. Kidney function is normal. Volume status and acid-base status are acceptable ID:Completed course of antibiotics for E. coli bacteremia. He now has an extended spectrum Klebsiella in his sputum. Day #3 Zerbaxa -white count improving and chest x-ray continues to show bilateral infiltrates. Follow clinically GI/Nutrition: Tolerating tube feeding. Previously abnormal LFTs have now resolved. Continue PPI. Will need to consult GI for possible PEG tube placement next week. Heme: Anemia: Megaloblastic DVT prophylaxis: Lovenox 40 daily Endocrine: Continue glycemic control Vascular access: Peripheral IVs, PIC Code Status: No compressions or shocks Patient's brother, Octaviano, is the proxy decision-maker. Extensive work to try and find alternative decision makers have been fruitless. Again the patient's brother states that life is to be evaluated and life should be prolonged as much as possible. He cited multiple confucianism reasons as well. He is comfortable that if the patient suffers a cardiac arrest, he should not be defibrillated or undergo CPR. We will continue to work on placement. At this point in time, can likely de-escalate intensity of monitoring and do chest x-rays 2 or 3 times a week and decrease lab frequency to 2 or 3 times a week as well unless something changes clinically (2) Acute respiratory failure with hypoxia: (3) Pneumonia: (4) Sepsis associated hypotension: (5) Acute kidney injury: Admission and Anticipated Discharge Date Admission Date: January 04, 2020 Subjective Patient awake. Not following commands. Appears comfortable Review of Systems Review of Systems: Unobtainable due to cognitive status Physical Exam Constitutional: + cachectic, + mechanically ventilated and + malnourished Eyes: PERRL, conjunctivae normal, anicteric sclerae Neck: Trach site clean dry and intact Cardiovascular: Heart Sounds: normal S1 and normal S2; no murmur Extremities: no edema Gastrointestinal (Abdomen): normal bowel sounds, soft, nontender, no hepatosplenomegaly Musculoskeletal: Marked muscle wasting Results & Data Results & Data ([facility]) Vital Signs (Past 12 Hours) Vital Signs Temp Pulse Resp BP Pulse Ox 01/16/20 07:00 79 01/16/20 05:05 79 12 98 01/16/20 05:00 84 98 01/16/20 04:50 83 118/83 99 01/16/20 04:00 37.1 C 86 97 01/16/20 03:50 93 H 146/83 H 98 01/16/20 03:00 94 H 98 01/16/20 02:50 92 H 135/86 97 01/16/20 02:00 86 98 01/16/20 01:50 82 120/73 98 01/16/20 01:33 79 16 97 01/16/20 01:00 97 H 97 01/16/20 00:50 93 H 158/83 H 98 01/16/20 00:00 37 C 92 H 98 01/15/20 23:50 95 H 157/90 H 97 01/15/20 23:12 82 17 96 01/15/20 23:00 80 100 01/15/20 22:50 82 126/75 99 01/15/20 22:00 98 H 98 01/15/20 21:50 94 H 148/81 H 97 01/15/20 21:00 84 97 01/15/20 20:50 91 H 137/78 98 01/15/20 20:24 95 H 24 97 Laboratory Results 01/16/20 04:15 01/16/20 04:15 Diagnostic Findings Chest x-ray from today. Tracheostomy in good position. Lung honeycutt are coarse again bilaterally however lung volumes are somewhat low. Coding Level of Care Code 01626 Subseq Hosp Care Lvl 3 Diagnoses Extrapyramidal and movement disorder G25.9 Acute respiratory failure with hypoxia J96.01 Pneumonia J18.9 Sepsis associated hypotension A41.9; I95.9 Acute kidney injury N17.9
[2020-01-16] MEDS: ALBUT/IPRATROP 3MG/0.5MG NEB 3 ML VIAL NEB SCH ×4 (08:15→20:03)
[2020-01-16] MEDS: levETIRAcetam 500 MG in 0.9 % SODIUM CHLORIDE 100 ML IV SCH ×2 (09:07→20:51)
[2020-01-16] MEDS: LANSOPRAZOLE 15 MG SOLTAB PO SCH (09:07)
[2020-01-16] MEDS: INSULIN GLARGINE SOLOSTAR 100 UNITS/ML 3 ML PEN SC SCH ×2 (09:08→20:52)
[2020-01-16] MEDS: DIVALPROEX SODIUM SPRINKLE 125 MG CAP PO SCH ×3 (09:08→20:51)
[2020-01-16] MEDS: ASPIRIN 81 MG CHEW PO SCH (09:10)
[2020-01-16] MEDS: LORazepam 1 MG/2 ML VIAL IV PRN (09:22)
[2020-01-16] MEDS: ENOXAPARIN INJ 40 MG/0.4 ML SYR SQ SCH (13:19)
[2020-01-17] MEDS: CEFTOLOZANE/TAZOBACTAM 3,000 MG in DEXTROSE 5% 100 ML IV SCH ×3 (00:52→17:03)
[2020-01-17] MEDS: INSULIN ASPART 100 UNITS/ML 3 ML PEN SC SCH ×6 (00:52→21:13)
[2020-01-17] MEDS: TUBE FEEDING WATER FLUSH GT SCH ×3 (04:00→20:00)
[2020-01-17] MEDS: IMPACT LIQD 1.0 CAL 1,000 ML BAG NG PRN ×2 (07:00→21:21)
--- NOTE | 2020-01-17 07:12 | Hospitalist Progress Note ---
Date of Service January 17, 2020 Assessment & Plan (1) Sepsis associated hypotension: gram negatives in blood and urine growing quinalone resistant E Coli resolved now ESBL Klebsiella in sputum, antibiotics changed to Ceftolazone tazobactam after sputum grew ESBL Klebsiella (2) Acute respiratory failure with hypoxia: Pt intubated and ventilated, managed by icu team Poor response attempted weaning trials concern for persistent ventilation required. weaning trial of 01/13 resulted inseizure like activity Concerns for recurrent aspiration and protecting airway Discussion with family and the critical care attending on sunday 01/14 with decision for DNR but not (3) Pneumonia: Aspiration vs. Health-care acquired (in [facility]). ESBL klebsiella grew, now on ceftolzone/tazobactam (4) Urinary tract infection: treated (5) Acute kidney injury: Suspected prerenal due to acute infection, dehydration (poor oral intake) and meloxicam use. Resolved Continue holding meloxicam. Patient is on tube feeds resolved hypernatremia. (6) Hypernatremia: Increased on admission due to NSS given as boluses in ER and to some extent LR maintenance. Unlikely DI given no polyuria noted. Resolved (7) Altered mental state: metabolic encephalopathy CT head negative for acute intracranial abnormality EEG unremarkable (8) Schizoaffective disorder, chronic condition: previously taking both Seroquel 100 mg twice daily (although notably on Seroquel 150mg TID in 2014) and haloperidol 2mg PO BID and 25 mg IM monthly. Consulted psychiatry did not feel that delirium is related to his psychotropic medications. (9) Psychosis: He has remained ventilated with support now via tracheostomy which was placed on 01/14. Continue to be unable to determine delusion or hallucinations given dementia and current cognitive state. (10) Dementia: Noted history of stroke with old left cerebral infarct. Although Alzheimer's noted on prior problem list Pt has been non functional at SNF for some time and has contracture of his right had that is pre hospital (11) Coronary artery disease: Unclear history of this. No prior stents or CABG Echocardiogram performed 01/03 shows normal EF, severe aortic stenosis. (12) Diabetes: HbA1C 6.6 Continue Novolog correction factor for now, plus scheduled lantus given reliable calorie intake (13) Hyperlipidemia: Hold simvastatin while NPO (14) GERD (gastroesophageal reflux disease): Now on Pepcid via his NG tube (15) Chronic prescription opiate use: Fentanyl patch removed on admission On chronic opiates for right foot and right hand pain.( hand contractures) Also taking Meloxicam 15mg QAM and [place] Q6H OFE as per prior documentation meds are on hold with sedation for ventilation (16) Peripheral vascular disease: Noted history of this. Not on antiplatelets are noted above. Holding simvastatin while NPO and lethargic. (17) Chronic gout: previously on allopurinol (18) Seizure disorder: Valproic acid and Keppra levels ordered (although notably these have previously been normal or low). Continue IV valproic acid and restarted Keppra with neurology oversight after apparent seizure during weaning trial 01/13 pevious EEG - non-seizure activity noted despite head tremor during EEG. Very mild generalized slowing represents a very mild encephalopathy. 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 Suspect from prior stroke in setting of chronic anti-psychotic use. Consult neurology -is following and adjusting antiepileptic medications (21) Depression: previously on venlafaxine (22) DVT prophylaxis: lovenox daily Patient's brother who is only next of kin we can identify. The borther expressed during family meeting 01/14, that there are strong sabianism overtones regarding sanctity of life and living and as the next of kin, Octaviano, feels he cannot determine end of life, he is comfortable making the pt DNR at this time and did consent to a tracheostomy and PICC line, will address PEG tube if pt continues to progress. A point that came out during the family meeting was that Mr. Errol Hinojosa initially presented to [place] ER years ago with evolving stroke, the brother is now suspicious of healthcare providers as he feels that situation may have been managed more timely to prevent the deficit that landed this patient in longterm. Subsequently this brother is not as confident in healthcare providers and sometimes resistant to making timely decisions until he has ample time to decide Admission and Anticipated Discharge Date Admission Date: January 04, 2020 Subjective Patient opens eyes to voice but does not follow commands he is moving spontaneously slightly more often and he continues to seem to be gagging or using his tongue to try to push things out of his mouth at this time he still has ngt Review of Systems Review of Systems: Unable to obtain full ROS due to intubation/sedation status Physical Exam Physical Exam: The patient continues with very little cognitive interaction pt does have more spontaneous movements of legs when the family is in the room Vital signs as documented. Lungs remain coarse, failed weaning trial Cardiac exam, Rhythm is regular.. Systolic ejection murmur heard consistent with aortic stenosis Abdominal exam reveals normal bowel sounds, soft, no masses Extremities are nonedematous and both pedal pulses are normal. Neurologic exam is alert to tactile stimuli does not follow commands Patient is seriously ill requiring life support Results & Data Results & Data ([facility]) Vital Signs (Past 12 Hours) Vital Signs Temp Pulse Resp BP Pulse Ox 01/17/20 06:00 98 H 96 01/17/20 05:51 96 H 119/98 96 01/17/20 05:22 84 13 100 01/17/20 05:00 79 100 01/17/20 04:50 82 94/60 L 99 01/17/20 04:00 97.9 F 77 100 01/17/20 03:51 79 132/80 100 01/17/20 03:00 81 99 01/17/20 02:50 82 88/57 L 97 01/17/20 02:00 85 98 01/17/20 01:51 92 H 136/86 99 01/17/20 01:41 93 H 17 98 01/17/20 01:00 80 100 01/17/20 00:50 85 124/72 99 01/17/20 00:00 97.9 F 77 100 01/16/20 23:50 79 135/79 100 01/16/20 23:07 80 13 100 01/16/20 23:00 79 98 01/16/20 22:50 79 95/59 L 98 01/16/20 22:05 91 H 27 H 96 01/16/20 22:00 91 H 96 01/16/20 21:50 91 H 138/88 97 01/16/20 21:00 81 99 01/16/20 20:50 78 114/65 100 01/16/20 20:00 98.2 F 87 97 01/16/20 19:50 87 145/83 H 98 01/16/20 19:15 91 H 27 H 96 PG Care Time/CCT Total # of Minutes Spent Total Time Spent with Patient: Total time spent is greater than 50% in coordination of care (as documented) at patient's floor/unit and/or counseling patient: Coding Level of Care Code 72197 Subseq Hosp Care Lvl 2 Diagnoses Sepsis associated hypotension A41.9; I95.9 Acute respiratory failure with hypoxia J96.01 Pneumonia J18.9 Urinary tract infection N39.0 Acute kidney injury N17.9 Hypernatremia E87.0 Altered mental state R41.82 Schizoaffective disorder, chronic condition F25.8 Psychosis F29 Dementia F03.90 Coronary artery disease I25.10 Diabetes E11.9 Hyperlipidemia E78.5 GERD (gastroesophageal reflux disease) K21.9 Chronic prescription opiate use Z79.891 Peripheral vascular disease I73.9 Chronic gout [id number].[id number] Seizure disorder G40.909 Muscle weakness M62.81 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
[2020-01-17] MEDS: ALBUT/IPRATROP 3MG/0.5MG NEB 3 ML VIAL NEB SCH ×4 (07:29→19:08)
[2020-01-17] MEDS: DIVALPROEX SODIUM SPRINKLE 125 MG CAP PO SCH ×3 (08:28→21:14)
[2020-01-17] MEDS: LANSOPRAZOLE 15 MG SOLTAB PO SCH (08:29)
[2020-01-17] MEDS: levETIRAcetam 500 MG in 0.9 % SODIUM CHLORIDE 100 ML IV SCH ×2 (08:30→21:20)
[2020-01-17] MEDS: ASPIRIN 81 MG CHEW PO SCH (08:30)
[2020-01-17] MEDS ORDERED: PHARMACY GLYCEMIC MGMT CONSULT PRN (08:56)
--- NOTE | 2020-01-17 09:29 | Pharmacy Report ---
Glycemic Control Consultation - Date of Service January 17, 2020 - Scope Scope: Glycemic Pharmacist consulted for glycemic control and to write orders per [facility] inpatient glycemic control protocol. - Objective Weight: 67.6 kg Accuchecks BSG (last 24hrs): 01/16/20 01/16/20 01/16/20 13:17 16:14 20:49 POC Glucose 143 H 125 H 135 H 01/17/20 01/17/20 01/17/20 00:50 03:41 07:22 POC Glucose 125 H 152 H 80 HbA1c: Hemoglobin A1c 6.6 % (4.5-5.6) H 01/05/20 06:35 - Recent Pertinent Medications Outpatient Anti-diabetic Regimen: * Lantus 10 units Qam * A1c = 6.6 % 01/05/20 The patient is currently receiving: * Basal insulin: Lantus 14 units every 12 hours * Correctional Insulin: Novolog Correction per scale ACHS Goal Range: Low 110 mg/dL - 140 High mg/dL Correction Factor: 15 mg/dL/unit * Prandial insulin: Per carb ratio of 1 unit per 5 grams CHO consumed Risk Factors for Insulin Resistance: * Diet: on tube feeds - Assessment & Plan Assessment & Plan: ASSESSMENT: * Patient admitted with sepsis/hypotension. Currently being ventilated and is on continuous tube feeds. Is being treated for pneumonia with antibiotics. * Pharmacy consulted to assist with glycemic management. At goal with tube feeds over the last few days * Required 61 units of insulin yesterday, of which 28 units were basal insulin. BSG this AM on lower end of range at 80 mg/dL - plan to scale back on long acting insulin, may loosen CR slightly PLAN FOR INPATIENT GLYCEMIC CONTROL: * Basal insulin * Lantus 10-12 units BID * Bolus insulin * NovoLog per scale ACHS or Q6hrs while NPO * Goal Range: Low 110 mg/dL - High 140 mg/dL * Correction Factor: 15 mg/dL/unit * Nutritional / Prandial insulin per carb ratio of 1 unit per 6 grams CHO consumed * Please note that the plan above was derived based on current level of insulin resistance and hospital stress. These recommendations are appropriate for inpatient admission only. Plan of care upon discharge will need to be reassessed to avoid potential outpatient hypo/hyperglycemia. Thank you.
[2020-01-17] MEDS ORDERED: INSULIN GLARGINE SOLOSTAR 100 UNITS/ML 3 ML PEN SC SCH ×2 (09:30→21:00)
[2020-01-17] MEDS: INSULIN GLARGINE SOLOSTAR 100 UNITS/ML 3 ML PEN SC SCH (09:46)
--- NOTE | 2020-01-17 09:55 | Critical Care Progress Note ---
Date of Service January 17, 2020 Assessment & Plan (1) Extrapyramidal and movement disorder: Reason Critically Ill: 69-year-old male with sepsis and acute hypoxic respiratory failure superimposed on severe underlying dementia. He has concomitant schizoaffective disorder and is essentially bedbound and nonverbal for the last several years 24-hour events: No significant changes overnight. He did have a fever 100.4 this morning. We will continue to monitor. 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 According to the neurology notes, he appears close to his baseline. Continue current medications with higher dose of valproic acid and restarting Keppra and follow clinically. Will recheck valproic acid levels in a few days try and maintain at around 75. Resp: Hypoxemic respiratory failure secondary to pneumonia. Patient is at high risk for aspiration events. Chest x-ray demonstrates bibasilar pulmonary infi ltrates. Status post bedside percutaneous tracheostomy 01/14. Continue to try to progress to CPAP/PS V and trach collar trials as tolerated. I suspect the patient will have recurrent issues with aspiration pneumonia so would be reluctant to remove trach once it is placed. I see no significant improvement in his future with regards to neurological issues. Case management working on placement which will be complicated by his payor status. We will continue to work and see if we can get him to trach collar trials which may make him eligible for penitentiary facilities rather than LTAC. Would anticipate a prolonged hospital stay. CV: No current issues. Hemodynamically stable Fluids/Renal: Previous electrolyte abnormalities are now resolved. Kidney function is normal. Volume status and acid-base status are acceptable ID:Completed course of antibiotics for E. coli bacteremia. He now has an extended spectrum Klebsiella in his sputum. Day #10/08 Zerbaxa. He did have an episode of diarrhea yesterday, but this spontaneously resolved. He has a low- grade fever 100.4 today. If he continues to spike fevers, we will "fonseca" reculture him. He is growing Sherry glabrata from his BAL culture. I will have a low threshold to start him on antifungals if he continues to have a fever. He may also need to have a C. difficile checked if he continues to have diarrhea. GI/Nutrition: Tolerating tube feeding. Previously abnormal LFTs have now resolved. Continue PPI. Will need to consult GI for possible PEG tube placement next week. Heme: Anemia: Megaloblastic DVT prophylaxis: Lovenox 40 daily Endocrine: Continue glycemic control Vascular access: Peripheral IVs, PIC Code Status: No compressions or shocks Patient's brother, Octaviano, is the proxy decision-maker. Extensive work to try and find alternative decision makers have been fruitless. Again the patient's brother states that life is to be evaluated and life should be prolonged as much as possible. He cited multiple christianity reasons as well. He is comfortable that if the patient suffers a cardiac arrest, he should not be defibrillated or undergo CPR. We will continue to work on placement. At this point in time, can likely de-escalate intensity of monitoring and do chest x-rays 2 or 3 times a week and decrease lab frequency to 2 or 3 times a week as well unless something changes clinically (2) Acute respiratory failure with hypoxia: (3) Pneumonia: (4) Sepsis associated hypotension: (5) Acute kidney injury: Admission and Anticipated Discharge Date Admission Date: January 04, 2020 Subjective Patient is lying in bed. He moves his limbs spontaneously. He does seem to track me with his eyes. He does not follow any significant commands. No overnight concerns. He did have an episode of diarrhea yesterday. Fever 100.4 this morning. Otherwise vital signs and ventilatory support has been at baseline since yesterday. Physical Exam Constitutional: + cachectic, + mechanically ventilated and + malnourished Eyes: PERRL, conjunctivae normal, anicteric sclerae Neck: Trach site clean dry and intact Respiratory: Coarse breath sounds on the ventilator. Cardiovascular: Heart Sounds: normal S1 and normal S2; no murmur Extremities: no edema Gastrointestinal (Abdomen): normal bowel sounds, soft, nontender, no hepatosplenomegaly Musculoskeletal: Marked muscle wasting Neurologic: Contractures of his upper extremities. Does not follow commands. Psychiatric: Unable to assess. Results & Data Results & Data ([facility]) Vital Signs (Past 12 Hours) Vital Signs Temp Pulse Resp BP Pulse Ox Pulse Ox 01/17/20 08:00 100.4 F H 77 100 01/17/20 07:50 84 125/79 100 01/17/20 07:43 99 01/17/20 07:29 80 12 99 01/17/20 07:00 82 98 01/17/20 06:50 78 108/69 98 01/17/20 06:00 98 H 96 01/17/20 05:51 96 H 119/98 96 01/17/20 05:22 84 13 100 01/17/20 05:00 79 100 01/17/20 04:50 82 94/60 L 99 01/17/20 04:00 97.9 F 77 100 01/17/20 03:51 79 132/80 100 01/17/20 03:00 81 99 01/17/20 02:50 82 88/57 L 97 01/17/20 02:00 85 98 01/17/20 01:51 92 H 136/86 99 01/17/20 01:41 93 H 17 98 01/17/20 01:00 80 100 01/17/20 00:50 85 124/72 99 01/17/20 00:00 97.9 F 77 100 01/16/20 23:50 79 135/79 100 01/16/20 23:07 80 13 100 01/16/20 23:00 79 98 01/16/20 22:50 79 95/59 L 98 01/16/20 22:05 91 H 27 H 96 01/16/20 22:00 91 H 96 I personally reviewed labs, chest imaging and recent notes. Coding Level of Care Code 00108 Subseq Hosp Care Lvl 3 Diagnoses Extrapyramidal and movement disorder G25.9 Acute respiratory failure with hypoxia J96.01 Pneumonia J18.9 Sepsis associated hypotension A41.9; I95.9 Acute kidney injury N17.9
[2020-01-17] MEDS: LORazepam 1 MG/2 ML VIAL IV PRN ×3 (10:06→18:45)
[2020-01-17] MEDS ORDERED: CASPOFUNGIN 70 MG in SODIUM CHLORIDE 0.9% 250 ML IV ONE (12:30)
[2020-01-17] MEDS: ENOXAPARIN INJ 40 MG/0.4 ML SYR SQ SCH (13:14)
[2020-01-18] MEDS: CEFTOLOZANE/TAZOBACTAM 3,000 MG in DEXTROSE 5% 100 ML IV SCH ×3 (00:57→17:07)
[2020-01-18] MEDS: INSULIN ASPART 100 UNITS/ML 3 ML PEN SC SCH ×6 (00:57→20:51)
[2020-01-18] MEDS: TUBE FEEDING WATER FLUSH GT SCH ×3 (04:01→20:52)
[2020-01-18 04:21] LABS: Basophils # (auto) 0.01 K/uL (0-0.2); Basophils % (auto) 0.1 %; Eosinophils # (auto) 0.05 K/uL (0-0.5); Eosinophils % (auto) 0.4 %; Hematocrit (blood only) 28.1 % (42-52); Hemoglobin 9.5 g/dL (14.0-18.0); Immature Granulocytes % (auto) 0.8 %; Lymphocytes # (auto) 1.33 K/uL (1.2-3.4); Mean Corpuscular Hemoglobin 31.3 pg (25-34); Mean Corpuscular Hgb Conc 33.8 g/dL (32-36); Mean Corpuscular Volume 92.4 fL (80-100); Mean Platelet Volume 9.1 fL (7.4-10.4); Monocytes # (auto) 1.01 K/uL (0.11-0.59); Monocytes % (auto) 8.3 %; Neutrophils # (auto) 9.63 K/uL (1.4-6.5); Neutrophils % (auto) 79.4 %; Platelet Count 355 K/uL (130-400); RDW Coefficient of Variation 13.6 % (11.5-14.5); RDW Standard Deviation 45.6 fL (36.4-46.3); Red Blood Count 3.04 M/uL (4.7-6.1); White Blood Count 12.13 K/uL (4.8-10.8)
[2020-01-18 04:40] LABS: BUN Creatinine Ratio 29.7 (10-20); Calcium 8.7 mg/dl (8.5-10.1); Creatinine Clr Calc Pharmacy 88.7 ml/min; Est GFR (African American) 108.2; Est GFR (Non-African American) 93.3; Magnesium 1.7 mg/dl (1.8-2.4); Potassium 3.7 mmol/L (3.5-5.1)
[2020-01-18 04:41] LABS: Phosphorus 2.6 mg/dl (2.5-4.9)
[2020-01-18] MEDS: MAGNESIUM SULFATE / D5W 1 GM/100 ML BAG IV SCH ×2 (06:33→08:09)
[2020-01-18] MEDS: POTASSIUM CHLORIDE / WTR 10 MEQ/100 ML PLCT IV SCH ×4 (06:33→09:31)
--- NOTE | 2020-01-18 06:51 | Critical Care Progress Note ---
Date of Service January 18, 2020 Assessment & Plan (1) Acute respiratory failure with hypoxia: Reason Critically Ill: [69]-year-old male here with a PMHx significant for schizoaffective disorder, dementia, CAD, DM2, HLD, chronic opiate use, seizure disorder who presented with worsening agitation and aspiration pneumonia and who was admitted for hypotension secondary to sepsis. Neuro - Encephalopathy, Seizure Disorder CAM ICU: not applicable Sedation: none Analgesia: none Encephalomalacia - poor respiratory drive. Frequently failing vent weaning trials and alternating between apnea and tachypnea off the vent. - No metabolic derangements at this time to indicate cause - likely secondary to years of antipsychotic medication use/seizure disorder/worsening dementia and psychosis Seizure Disorder - On Depakote 500 TID at home, Keppra held at admission and then restarted after patient witnessed having seizures - EEG: no focal epileptogenic discharges visualized, mildly abnormal with very mild generalized slow activity of nonspecific nature. - CT head: chronic encephalomalacia with old left frontal lobe infarct, ex vacuo ventriculomegaly - Neuro recommendations: IV Keppra 500 BID for seizure control, Depakote 500 TID Schizoaffective disorder/Schizophrenia + Tremoring - one time haloperidol decanoate 25 mg IM today, per monthly at home dose - restarting Venlafaxine per psychiatry's recommendations. - Haldol PRN for agitation, discontinuing seroquel. Chronic Opiate use - Restarted on low dose 25 mcg fentanyl patch Cardiac - Occasionally has small runs of tachycardia that resolve. Frequent PVCs. Tachycardia likely secondary to neuroagitation, no acute concerns at this time. Respiratory Acute Hypoxic Respiratory Failure s/p trach placement, on mechanical ventilation - currently on PRVC, TV 450, RR 6, FIO2 30%, PEEP 5, Pressure Support of 10 - has failed multiple weaning trials from Vent, frequently will either be apneic or tachypneic when breathing on his own - O2 sat 97 on current settings, no concern for hypoxia at this time - bronch wash: cathy galbrata/yeast - optho consulted for eval of intraocular cathy infection given bronchial wash results GI - Protein malnourishment - Enteral nutrition via NG tube - would benefit from PEG tube placement to aid medication delivery and stabilization of trach/breathing - GI consulted for PEG placement, plan for 01/19 RENAL/LYTES - No significant electrolyte derangement. Replace lytes as needed. - No concerns at this time. d/c menjivar, replace with condom cath while evaluating for fever source ENDO - DM2 - 10u lantus daily, SSI with fluctuations of glucose HEME - Anemia - 9.5, down from 13 on admission. likely secondary to blood draws and hemodilution. ID - Fever of unknown source - febrile ovenright at 4 am to 38.0 C while on ceftolazone/tazobactam - WBC 12.1 today, procal 01/16 0.10 - started on caspofungin overnight after fever - sputum culture from trach 01/16 growing gram negative bacilli, sensitivities pending - Blood cultures redrawn 01/16 for aerobic, anaerobic, fungal growth. - 01/17 urine culture pending from indwelling cath changed yesterday - sputum culture from vent suction on 01/10 grew ESBL klebsiella - MRSA nares negative - US upper and lower extremities bilaterally ordered to r/o DVT - will redraw blood cultures after line holiday [employer] - no concerns at this time. LINES/IV ACCESS - RUE PICC L PIV NG Tube Menjivar Cath Plan to remove all lines today for line holiday and redraw blood cultures later this afternoon to eval for fever source DVT PROPHYLAXIS - lovenox 40 daily Thank you for allowing us to be part of this patient's care. Please refer to Dr. Douglas's documentation for any further recommendations. (2) Sepsis associated hypotension: (3) Pneumonia: (4) Acute kidney injury: (5) Encephalopathy: (6) Goals of care, counseling/discussion: (7) Extrapyramidal and movement disorder: (8) Seizure disorder: (9) Dementia: (10) Chronic prescription opiate use: (11) Peripheral vascular disease: (12) Chronic gout: (13) Hypertension: (14) Diabetes: (15) Schizoaffective disorder, chronic condition: (16) Hyperlipidemia: (17) Coronary artery disease: (18) Acute encephalopathy: Admission and Anticipated Discharge Date Admission Date: January 04, 2020 Supervising Physician Co-Signing Physician Notes Dr. Leonard was resident physician during care of patient. I separately evaluated patient for jay portions of the history and the exam. I was present during the critical portion of medical decision making, and I discussed the case with the resident. I generally agree with the findings and plan. Based on records with audelia Gonzales to coordinate administered 12/18 we will administer it today. We have discontinued the Seroquel. Will restart the venlafaxine per psychiatry's recommendations. We will start trach trials and hopefully be able to liberate the patient from the ventilator. We will also consult gastroenterology for PEG tube placement. Given the fevers without exact source we will also have ophthalmology consulted for dilated eye exam evaluati on given Cathy glabrata, he was started on antifungal medication prior to obtaining a fungal culture so I cannot be completely certain that this might represent a disseminated infection. With regards to ventilator failure, we will start daily trach trials: Only reattached to ventilator if in respiratory distress or significant insufficiency. Subjective Pt unresponsive to commands or pain; assessment of subjective/ROS limited. Review of Systems Review of Systems: Unobtainable due to cognitive status Physical Exam Physical Exam: Constitutional: laying curled up in bed, unkempt, non responsive to speech or pain, frequent tongue fasciculations Eyes: opens and moves eyes spontaneously, large amount of mucus coating eyelashes, not tracking finger well with command Cardiac: regular rate and rhythm with frequent PVCs, 3/6 crescendo- decrescendo murmur Pulm: tracheostomy in place CTA BL, some coarse rhonchorous breath sounds at left lung base, otherwise moving good air bilaterally Abd: soft, nontender, nondistended, normal bowel sounds, no rebound or guarding : menjivar in place, no hematuria Extremities: poor peripheral pulses, cold feet Neuro: GCS 6, not responsive to commands, not responsive to pain, opens eyes spontaneously Results & Data Results & Data ([facility]) Vital Signs (Past 12 Hours) Vital Signs Temp Pulse Resp BP Pulse Ox 01/18/20 06:25 6 L 01/18/20 06:00 37.7 C H 89 97 01/18/20 05:51 37.7 C H 84 144/94 H 96 01/18/20 05:17 90 27 H 97 01/18/20 05:00 37.8 C H 91 H 96 01/18/20 04:51 37.8 C H 91 H 139/89 97 01/18/20 04:00 38.0 C H 80 99 01/18/20 03:51 37.9 C H 78 123/83 99 01/18/20 03:00 37.7 C H 90 98 07/20/20 02:51 37.7 C H 82 143/90 H 97 01/18/20 02:00 37.7 C H 87 98 01/18/20 01:51 37.8 C H 92 H 136/89 95 01/18/20 01:40 94 H 15 98 01/18/20 01:00 37.7 C H 90 97 01/18/20 00:51 37.7 C H 93 H 150/98 H 98 01/18/20 00:00 37.8 C H 91 H 97 01/17/20 23:51 37.8 C H 86 130/78 97 01/17/20 23:00 37.8 C H 88 97 01/17/20 22:51 37.8 C H 84 120/72 96 01/17/20 22:20 89 15 100 01/17/20 22:00 37.7 C H 92 H 98 01/17/20 21:51 37.7 C H 89 145/95 H 97 01/17/20 21:00 37.8 C H 87 96 01/17/20 20:51 37.8 C H 89 146/94 H 97 01/17/20 20:00 38.1 C H 85 96 01/17/20 19:51 38.1 C H 91 H 119/77 96 01/17/20 19:00 38.1 C H 82 100 01/17/20 18:57 85 6 L 99 Laboratory Results WBC 12.13 K/uL (4.8-10.8) H 01/18/20 03:54 RBC 3.04 M/uL (4.7-6.1) L 01/18/20 03:54 Hgb 9.5 g/dL (14.0-18.0) L 01/18/20 03:54 POC Hgb 9.5 g/dl (14.0-18.0) L 01/15/20 05:05 Hct 28.1 % (42-52) L 01/18/20 03:54 POC Hct 28 % (42-52) L 01/15/20 05:05 MCV 92.4 fL (80-100) 01/18/20 03:54 MCH 31.3 pg (25-34) 01/18/20 03:54 MCHC 33.8 g/dL (32-36) 01/18/20 03:54 RDW Std Deviation 45.6 fL (36.4-46.3) 01/18/20 03:54 RDW Coeff of Kasey 13.6 % (11.5-14.5) 01/18/20 03:54 Plt Count 355 K/uL (130-400) 01/18/20 03:54 MPV 9.1 fL (7.4-10.4) 01/18/20 03:54 Immature Gran % (Auto) 0.8 % 01/18/20 03:54 Neut % (Auto) 79.4 % 01/18/20 03:54 Lymph % (Auto) 11.0 % 01/18/20 03:54 Patrick % (Auto) 8.3 % 01/18/20 03:54 Eos % (Auto) 0.4 % 01/18/20 03:54 Baso % (Auto) 0.1 % 01/18/20 03:54 Neut # (Auto) 9.63 K/uL (1.4-6.5) H 01/18/20 03:54 Lymph # (Auto) 1.33 K/uL (1.2-3.4) 01/18/20 03:54 Patrick # (Auto) 1.01 K/uL (0.11-0.59) H 01/18/20 03:54 Eos # (Auto) 0.05 K/uL (0-0.5) 01/18/20 03:54 Baso # (Auto) 0.01 K/uL (0-0.2) 01/18/20 03:54 Immature Gran # (Auto) 0.10 K/uL (0.00-0.02) H 01/18/20 03:54 Absolute Nucleated RBC Cancelled 01/15/20 04:48 Nucleated RBC % (auto) Cancelled 01/15/20 04:48 Neutrophils % (Manual) Cancelled 01/15/20 04:48 Band Neutrophils % Cancelled 01/15/20 04:48 Lymphocytes % (Manual) Cancelled 01/15/20 04:48 Prolymphocyte % Cancelled 01/15/20 04:48 Reactive Lymphs % (Man) Cancelled 01/15/20 04:48 Monocytes % (Manual) Cancelled 01/15/20 04:48 Eosinophils % (Manual) Cancelled 01/15/20 04:48 Basophils % (Manual) Cancelled 01/15/20 04:48 Metamyelocytes % (Man) Cancelled 01/15/20 04:48 Myelocytes % (Man) Cancelled 01/15/20 04:48 Promyelocytes % (Man) Cancelled 01/15/20 04:48 Blast Cells % (Manual) Cancelled 01/15/20 04:48 Plasma Cell % (Manual) Cancelled 01/15/20 04:48 Other Cells % Cancelled 01/15/20 04:48 Nucleated RBC % Cancelled 01/15/20 04:48 Neutrophils # (Manual) Cancelled 01/15/20 04:48 Band Neutrophils # Cancelled 01/15/20 04:48 Total Absolute Neuts Cancelled 01/15/20 04:48 Lymphocytes # (Manual) Cancelled 01/15/20 04:48 Prolymphocyte # Cancelled 01/15/20 04:48 Reactive Lymphs # Cancelled 01/15/20 04:48 Total Abs Lymphocytes Cancelled 01/15/20 04:48 Monocytes # (Manual) Cancelled 01/15/20 04:48 Eosinophils # (Manual) Cancelled 01/15/20 04:48 Basophils # (Manual) Cancelled 01/15/20 04:48 Metamyelocytes # (Man) Cancelled 01/15/20 04:48 Myelocytes # (Manual) Cancelled 01/15/20 04:48 Promyelocytes # (Man) Cancelled 01/15/20 04:48 Blast Cells # (Man) Cancelled 01/15/20 04:48 Plasma Cell # (Manual) Cancelled 01/15/20 04:48 Other Cells # Cancelled 01/15/20 04:48 Nucleated RBCs # (Man) Cancelled 01/15/20 04:48 Hypersegmented Neuts Cancelled 01/15/20 04:48 Hyposegmented Neuts Cancelled 01/15/20 04:48 Hypogranular Neuts Cancelled 01/15/20 04:48 Large Granular Lymphs Cancelled 01/15/20 04:48 # Lrg Granular Lymphs Cancelled 01/15/20 04:48 Hairy Cells Cancelled 01/15/20 04:48 Smudge Cells Cancelled 01/15/20 04:48 Toxic Granulation Cancelled 01/15/20 04:48 Toxic Vacuolation Cancelled 01/15/20 04:48 Dohle Bodies Cancelled 01/15/20 04:48 Marcio Rods Cancelled 01/15/20 04:48 Platelet Estimate Cancelled 01/15/20 04:48 Hypogranular Platelets Cancelled 01/15/20 04:48 Clumped Platelets Cancelled 01/15/20 04:48 Giant Platelets Cancelled 01/15/20 04:48 Platelet Satelliting Cancelled 01/15/20 04:48 RBC Morphology Cancelled 01/15/20 04:48 Polychromasia Cancelled 01/15/20 04:48 Hypochromasia Cancelled 01/15/20 04:48 Poikilocytosis Cancelled 01/15/20 04:48 Basophilic Stippling Cancelled 01/15/20 04:48 Anisocytosis Cancelled 01/15/20 04:48 Microcytosis Cancelled 01/15/20 04:48 Macrocytosis Cancelled 01/15/20 04:48 Spherocytes Cancelled 01/15/20 04:48 Pappenheimer Bodies Cancelled 01/15/20 04:48 Sickle Cells Cancelled 01/15/20 04:48 Target Cells Cancelled 01/15/20 04:48 Tear Drop Cells Cancelled 01/15/20 04:48 Ovalocytes Cancelled 01/15/20 04:48 Stomatocytes Cancelled 01/15/20 04:48 Ramires-Justin Bodies Cancelled 01/15/20 04:48 Echinocytes Cancelled 01/15/20 04:48 Acanthocytes (Spur) Cancelled 01/15/20 04:48 Rouleaux Cancelled 01/15/20 04:48 RBC Agglutinates Cancelled 01/15/20 04:48 Schistocytes Cancelled 01/15/20 04:48 RBC Morph Comment Cancelled 01/15/20 04:48 ESR 32 mm/hr (0-14) H 01/04/20 16:51 Sezary Cell Cancelled 01/15/20 04:48 PT 11.2 Seconds (9.0-12.0) 01/04/20 16:51 INR 1.1 (0.9-1.1) 01/04/20 16:51 APTT 26.2 Seconds (21.0-31.0) 01/04/20 16:51 PTT Ratio 0.9 01/04/20 16:51 Specimen Type Arterial 01/14/20 05:23 Sample Site L Radial 01/16/20 05:37 Patient Temperature 37.2 01/14/20 05:23 POC pH 7.56 (7.35-7.45) H* 01/16/20 05:37 POC pCO2 36 mmHg (35-46) 01/16/20 05:37 POC pO2 88 mmHg (80-95) 01/16/20 05:37 POC HCO3 32 errol/L (19-24) H 01/16/20 05:37 POC Total CO2 33 mmol/L (24-31) H 01/16/20 05:37 POC Base Excess 9.0 errol/L (-9-1.8) H 01/16/20 05:37 O2 Sat Pulse Oximetry 97 01/14/20 05:23 ABG pH (Temp Correct) 7.456 (7.35-7.45) H 01/15/20 05:05 ABG pCO2 (Temp Corrct 47 mmHg (35-46) H 01/15/20 05:05 POC ABG pO2 at Pt Temp 81 01/15/20 05:05 POC ABG O2 Sat 98.0 % (90-95) H 01/16/20 05:37 Yves Test Pass 01/16/20 05:37 VBG pH 7.39 (7.36-7.41) 01/05/20 12:52 VBG pCO2 41 mmHg (38-50) 01/05/20 12:52 VBG pO2 86 mmHg 01/05/20 12:52 VBG HCO3 25 mmol/L 01/05/20 12:52 VBG O2 Saturation 96.7 % 01/05/20 12:52 VBG Base Excess -0.4 mEq/L 01/05/20 12:52 Barometric Pressure 733.7 mm/Hg 01/05/20 12:52 O2 Delivery Device Ventilator 01/16/20 05:37 POC O2 Rate 6 01/16/20 05:37 Minute Ventilation 6.2 01/16/20 05:37 Vent Mode CPAP 01/14/20 05:23 POC FiO2 30 % 01/15/20 05:05 Tidal Volume 450 01/16/20 05:37 End Tidal CO2 60 01/14/20 05:23 PEEP 5 01/16/20 05:37 Pressure Support Vent 10 01/15/20 05:05 POC Sodium 131 mmol/L (135-144) L 01/15/20 05:05 Sodium 136 mmol/L (136-145) 01/18/20 03:54 POC Potassium 3.9 mmol/L (3.3-5.0) 01/15/20 05:05 Potassium 3.7 mmol/L (3.5-5.1) 01/18/20 03:54 POC Chloride 120 mmol/L (101-112) H 01/04/20 17:20 Chloride 99 mmol/L (98-107) 01/18/20 03:54 Carbon Dioxide 31 mmol/L (21-32) 01/18/20 03:54 POC Total CO2 28 mmol/L (24-31) 01/04/20 17:20 Anion Gap 6.0 (3-11) 01/18/20 03:54 POC Anion Gap 12.0 mmol/L (16-25) L 01/04/20 17:20 POC BUN 54 mg/dl (7-18) H 01/04/20 17:20 BUN 22 mg/dl (7-18) H 01/18/20 03:54 Creatinine 0.73 mg/dl (0.6-1.4) 01/18/20 03:54 POC Creatinine 1.9 mg/dl (0.6-1.3) H 01/04/20 17:20 Est Cr Clr Drug Dosing 88.7 ml/min 01/18/20 03:54 Est GFR ( Amer) 108.2 01/18/20 03:54 Est GFR (Non-Af Amer) 93.3 01/18/20 03:54 BUN/Creatinine Ratio 29.7 (10-20) H 01/18/20 03:54 Glucose 167 mg/dl (70-99) H 01/18/20 03:54 POC Glucose 170 mg/dl (70-99) H 01/18/20 03:56 POC Glucose (other) 205 mg/dl (70-99) H 01/04/20 17:20 Estimat Average Glucose 143 mg/dl 01/05/20 06:35 Hemoglobin A1c 6.6 % (4.5-5.6) H 01/05/20 06:35 Osmolality 359 mOsm/kg (280-300) H* 01/05/20 13:02 Lactate 1.3 mmol/L (0.4-2.0) 01/06/20 01:00 Calcium 8.7 mg/dl (8.5-10.1) 01/18/20 03:54 POC Ioniz Calcium Cooper 1.11 mmol/l (1.12-1.32) L 01/04/20 17:20 Phosphorus 2.6 mg/dl (2.5-4.9) 01/18/20 03:54 Magnesium 1.7 mg/dl (1.8-2.4) L 01/18/20 03:54 Ferritin 504.2 ng/ml (8-388) H 01/04/20 16:51 Total Bilirubin 0.4 mg/dl (0.2-1) 01/12/20 04:31 GGT 40 U/L (3-70) 01/07/20 10:15 AST 41 U/L (15-37) H 01/12/20 04:31 ALT 89 U/L (12-78) H 01/12/20 04:31 Alkaline Phosphatase 106 U/L (45-117) 01/12/20 04:31 Ammonia 29.0 umol/L (11-32) 01/14/20 10:19 Lactate Dehydrogenase 304 U/L (87-241) H 01/04/20 16:59 Total Creatine Kinase 38 U/L (39-308) L 01/04/20 16:51 CK-MB (CK-2) < 1.0 ng/ml (0.5-3.6) 01/04/20 16:51 CK/CKMB % Calc TNP 01/04/20 16:51 Troponin I < 0.015 ng/ml (0-0.045) 01/04/20 16:51 C-Reactive Protein 44.30 mg/dl (0-0.29) H 01/04/20 16:51 Total Protein 6.3 gm/dl (6.4-8.2) L 01/12/20 04:31 Albumin 2.1 gm/dl (3.4-5.0) L 01/12/20 04:31 Globulin 4.2 gm/dl (2.5-4.0) H 01/12/20 04:31 Albumin/Globulin Ratio 0.5 (0.9-2) L 01/12/20 04:31 Triglycerides 401 mg/dl (0-150) H 01/07/20 10:15 Lipase 248 U/L (73-393) 01/07/20 10:15 Procalcitonin 0.10 ng/ml (0-0.5) 01/17/20 12:15 Specimen Hemolysis 01/07/20 04:33 Urine Color [place] 01/04/20 17:02 Urine Appearance Cloudy (Clear) A 01/04/20 17:02 Urine pH 5.0 (4.5-7.5) 01/04/20 17:02 Ur Specific [place] 1.038 (1.000-1.030) H 01/04/20 17:02 Urine Protein 2+ (Negative) H 01/04/20 17:02 Urine Glucose (UA) Negative (Negative) 01/04/20 17:02 Urine Ketones Trace (Negative) H 01/04/20 17:02 Urine Blood 3+ (Negative) H 01/04/20 17:02 Urine Nitrite Positive (Negative) A 01/04/20 17:02 Urine Bilirubin Negative (Negative) 01/04/20 17:02 Urine Urobilinogen Negative (Negative) 01/04/20 17:02 Ur Leukocyte Esterase 1+ (Negative) H 01/04/20 17:02 Urine WBC (Auto) 5-10 /hpf (0-5) H 01/04/20 17:02 Urine RBC (Auto) >30 /hpf (0-4) H 01/04/20 17:02 U Hyaline Cast (Auto) 1-5 /lpf (0-5) 01/04/20 17:02 U Epithel Cells (Auto) >30 /lpf (0-5) H 01/04/20 17:02 Urine Bacteria (Auto) 2+ (Negative) H 01/04/20 17:02 Urine Yeast Not Reportable 01/04/20 17:02 Urine Osmolality 805 mOsm/kg (500-800) H 01/05/20 14:30 Urine Sodium 24 mmol/L 01/05/20 14:30 Urine Potassium 78.7 mmol/L 01/05/20 14:30 Urine Chloride 26 mmol/L 01/05/20 14:30 Fluid Neutrophils % 94 % 01/05/20 12:50 Fluid Lymphocytes % 3 % 01/05/20 12:50 Fluid Eosinophils % 0 % 01/05/20 12:50 Fl Monocyt/Macrophag % 3 % 01/05/20 12:50 Nasal Screen MRSA (PCR) Negative (Negative) 01/05/20 14:30 Random Vancomycin 13.6 mcg/ml 01/06/20 04:14 Valproic Acid 64 mcg/ml (50-100) 01/16/20 13:15 Levetiracetam 29.5 mcg/mL (12.0-46.0) 01/05/20 06:35 Adenovirus (PCR) Not Detected (NotDetected) 01/04/20 17:00 B. pertussis DNA (PCR) Not Detected (NotDetected) 01/04/20 17:00 B.parapertussis DNA PCR Not Detected (NotDetected) 01/04/20 17:00 C. pneumoniae DNA (PCR) Not Detected (NotDetected) 01/04/20 17:00 Coronavirus OC43 (PCR) Not Detected (NotDetected) 01/04/20 17:00 Coronavirus HKU1 (PCR) Not Detected (NotDetected) 01/04/20 17:00 Coronavirus 229E (PCR) Not Detected (NotDetected) 01/04/20 17:00 COVID-19 PCR NEGATIVE (Negative) 01/04/20 17:30 Coronavirus NL63 (PCR) Not Detected (NotDetected) 01/04/20 17:00 Hepatitis A IgM Ab NON-REACTIVE (NON-REACTIVE) 01/07/20 10:15 Hep Bs Antigen Neg (Neg) 01/07/20 10:15 Hep B Core IgM Ab NON-REACTIVE (NON-REACTIVE) 01/07/20 10:15 Hepatitis C Antibody Neg (Neg) 01/07/20 10:15 Human Metapneumovir PCR Not Detected (NotDetected) 01/04/20 17:00 Influenza Type A (PCR) Cancelled 01/04/20 17:00 Influenza Type A (PCR) Not Detected (NotDetected) 01/04/20 17:00 Influenza Type B (PCR) Cancelled 01/04/20 17:00 Influenza Type B (PCR) Not Detected (NotDetected) 01/04/20 17:00 Legionella Source Cancelled 01/05/20 06:35 Legionella Source Cancelled 01/05/20 06:35 Legionella Culture Cancelled 01/05/20 06:35 L. pneumophila DFA Cancelled 01/05/20 06:35 Urine Legionella Ag SEE NOTE 01/05/20 20:26 M. pneumoniae (PCR) Not Detected (NotDetected) 01/04/20 17:00 Parainfluenza 1 (PCR) Not Detected (NotDetected) 01/04/20 17:00 Parainfluenza 2 (PCR) Not Detected (NotDetected) 01/04/20 17:00 Parainfluenza 3 (PCR) Not Detected (NotDetected) 01/04/20 17:00 Parainfluenza 4 (PCR) Not Detected (NotDetected) 01/04/20 17:00 RSV (PCR) Not Detected (NotDetected) 01/04/20 17:00 Entero/Rhino (PCR) Not Detected (NotDetected) 01/04/20 17:00 SARS-CoV-2 RNA (RT-PCR) Cancelled 01/04/20 17:00 Resident Activity Tracking Resident Involvement: Resident Care Provided Care Provided: Adult Hospital Medicine
[2020-01-18] MEDS: ALBUT/IPRATROP 3MG/0.5MG NEB 3 ML VIAL NEB SCH ×4 (07:10→19:11)
--- NOTE | 2020-01-18 07:10 | XRay Report ---
XR chest 1V portable HISTORY: 69 years-old Male PNA acute shortness of breath with reported pneumonia COMPARISON: Chest radiograph 01/16/2020 TECHNIQUE: Portable AP view of the chest FINDINGS: Tracheostomy cannula overlies the midline, unchanged. Unchanged positioning of the right-sided PICC. Enteric tube is noted with distal tip projected over the expected location of the mid gastric body. C ardiomegaly. Pulmonary vascular congestion with persistent interstitial coarsening. There is new mild left hemidiaphragmatic elevation. Hypoinflation. No pneumothorax or large pleural effusion. Mild bib asilar densities. IMPRESSION: 1. Lines and tubes as above. 2. Cardiomegaly with hypoinflation. 3. Unchanged interstitial coarsening suggestive of multifocal pneumonitis. ACT 112: Negative or not required by law. The above report was generated using voice recognition software. It may contain grammatical, syntax o r spelling errors. Electronically signed by: Yong Farrar M.D. 01/18/2020 7:09 AM
[2020-01-18] MEDS: LANSOPRAZOLE 15 MG SOLTAB PO SCH (08:08)
[2020-01-18] MEDS: DIVALPROEX SODIUM SPRINKLE 125 MG CAP PO SCH ×3 (08:08→20:52)
[2020-01-18] MEDS: ASPIRIN 81 MG CHEW PO SCH (08:12)
[2020-01-18] MEDS: levETIRAcetam 500 MG in 0.9 % SODIUM CHLORIDE 100 ML IV SCH (08:32)
[2020-01-18] MEDS: INSULIN GLARGINE SOLOSTAR 100 UNITS/ML 3 ML PEN SC SCH (08:32)
[2020-01-18] MEDS ORDERED: VENLAFAXINE HCL 37.5 MG TAB PO ONE (10:15)
--- NOTE | 2020-01-18 11:12 | Pharmacy Report ---
Pharmacy Glycemic Short Note 2 - Date of Service January 18, 2020 - Glycemic Short BSG Results (Last 24 hours): 01/17/20 01/17/20 01/17/20 13:10 16:52 20:54 Glucose POC Glucose 146 H 114 H 58 L* 01/17/20 01/17/20 01/17/20 20:56 21:17 23:57 Glucose POC Glucose 60 L* 140 H 147 H 01/18/20 01/18/20 01/18/20 03:54 03:56 07:37 Glucose 167 H POC Glucose 170 H 173 H OUTPATIENT ANTIDIABETIC REGIMEN: * Lantus 10 units SQ daily * A1c = 6.6% 01/05/20 ASSESSMENT: * Type 2 diabetic admitted to ICU acute resp failure, sepsis (UTI and PNA), and CORY * Patient remains in ICU at this time, still dependent of ventilator however now has trach in place * Continuous tube feeds tolerated and running at goal * Patient did have one episode of hypoglycemia last evening, likely secondary to excess prandial insulin given to cover tube feeds. As a result both Novolog and Lantus doses lessened last evening. Since these changes BSGs have mostly been in the 170s range. * Plan to resume out-pt Lantus dose with slightly higher Novolog doses today PLAN FOR INPATIENT GLYCEMIC CONTROL: * Basal insulin - reduced dose * Lantus 10 units SQ Q AM * Bolus insulin - slightly higher doses * NovoLog per scale Q 4hrs * Goal Range: Low 120 mg/dL - High 160 mg/dL * Correction Factor: 30 mg/dL/unit * Nutritional / Prandial insulin per carb ratio of 1 unit per 12 grams CHO consumed PLAN FOR DISCHARGE: * to be determined - will ultimately depend upon method of feeding on discharge
[2020-01-18] MEDS ORDERED: HALOPERIDOL DECANOATE INJ 50 MG/ML VIAL IM SCH (12:00)
[2020-01-18] MEDS: fentaNYL 25 MCG/HR TDSY TD SCH (12:33)
[2020-01-18] MEDS: IMPACT LIQD 1.0 CAL 1,000 ML BAG NG PRN (12:43)
--- NOTE | 2020-01-18 13:26 | Palliative Care Progress Note ---
Date of Service January 18, 2020 Subjective Goals of care known as per pt's brother. Will sign off for now . Please re-consult if there are changes Results & Data Vital Signs (Past 12 Hours) Vital Signs Temp Pulse Resp BP Pulse Ox Pulse Ox 01/18/20 11:27 90 97 01/18/20 10:57 79 16 100 01/18/20 08:00 99 01/18/20 07:10 91 H 26 H 97 01/18/20 06:25 6 L 01/18/20 06:00 99.9 F H 89 97 01/18/20 05:51 99.9 F H 84 144/94 H 96 01/18/20 05:17 90 27 H 97 01/18/20 05:00 100.0 F H 91 H 96 01/18/20 04:51 100.0 F H 91 H 139/89 97 01/18/20 04:00 100.4 F H 80 99 01/18/20 03:51 100.2 F H 78 123/83 99 01/18/20 03:00 99.9 F H 90 98 01/18/20 02:51 99.9 F H 82 143/90 H 97 01/18/20 02:00 99.9 F H 87 98 01/18/20 01:51 100.0 F H 92 H 136/89 95 01/18/20 01:40 94 H 15 98 PG Care Time/CCT Total # of Minutes Spent Total Time Spent with Patient: Total time spent is greater than 50% in coordination of care (as documented) at patient's floor/unit and/or counseling patient: Coding Level of Care Code None
--- NOTE | 2020-01-18 13:31 | Gastrointestinal Consultation ---
Date of Consultation January 18, 2020 Assessment & Plan (1) Acute respiratory failure with hypoxia: (2) Stroke: Pt is a 69 y/o male w hx of dementia, schizoaffective disorder, EPS, CVA, currently admitted for sepsis, acute respiratory failure ? related to aspiration pneumonia s/p tracheostomy placement 01/14. GI asked to evaluate pt for PEG placement to provide nutrition. At baseline pt was on puree, unable to feed self. Currently has NGT feeding. Brother (Octaviano) makes medical decisions for pt and would like to proceed with life sustaining interventions including PEG placement for feeding. - Continue NGT feeding - Will discuss with my attending physician (Dr. Sapphire Campoverde) regarding possible PEG placement. -> plan for PEG placement on 01/18. Please hold NGT feeding at midnight. I have discussed with pt's brother Octaviano regarding technical aspect of how PEG will be placed, risks vs benefits Supervising Physician Co-Signing Physician Notes I performed a history and physical examination of the patient today, including specifically on physical exam - soft abdomen. I have discussed the patient's management with the advanced practitioner. Please refer to the nurse practitioner's note for the documented findings and plan of care. s/p CVA, now s/p Trach, AMS. Needs PEG. NOK agreed. NPO after midnight. PEG tomorrow History of Present Illness Reason for Consultation: PEG evaluation Requesting Physician: Javier Douglas Attending Physician: Dr. Sapphire Campoverde History of Present Illness Pt is a 69 y/o male w hx of dementia, schizoaffective disorder, EPS, CVA, currently admitted for sepsis, acute respiratory failure ? related to aspiration pneumonia s/p tracheostomy placement 01/14. Sputum culture grew Kleb pneumoniae ESBL. GI consulted for PEG placement. Pt non verbal, not following commands but opens eyes when name called. Octaviano (brother) makes pt's medical decisions. At baseline prior to admission, pt hadn't been able to feed himself but was on puree foods. He is currently on NGT feeding. Octaviano reports he's making medical decisions based on cheondoism reasons, and would like pt to undergo life sustaining procedures/interventions however no CPR if he naturally coded. Abd surgeries included: AAA repair, appendectomy. Allergies Allergy/AdvReac Type Severity Reaction Status Date / Time No Known Allergies Allergy Unverified 11/26/18 13:11 Home Medications Home Medications Medication Instructions Recorded Confirmed Type acetaminophen 650 mg PO Q8H PRN MDD 3G 11/26/18 01/04/20 History allopurinol 200 mg PO QAM 11/26/18 01/04/20 History bisacodyl [Dulcolax (bisacodyl)] 10 mg PA DAILY PRN 11/26/18 01/04/20 History calcium carbonate-vitamin D3 1 tab PO QAM 11/26/18 01/04/20 History [Calcium 500 + D] divalproex 250 mg PO TID 11/26/18 01/04/20 History gabapentin 600 mg PO TID 11/26/18 01/04/20 History haloperidol decanoate [Haldol 25 mg IM MONTHLY 11/26/18 01/06/20 History Decanoate] hydrocodone-acetaminophen 1 tab PO Q6H 11/26/18 01/04/20 History insulin glargine [Lantus Solostar 10 unit SUBCUT QA 11/26/18 01/04/20 History U-100 Insulin] levetiracetam [Keppra] 750 mg PO BID 11/26/18 01/04/20 History lidocaine 1 applic TOPICAL QA 11/26/18 01/04/20 History omeprazole 20 mg PO QAM 11/26/18 01/04/20 History quetiapine [Seroquel] 100 mg PO BID 11/26/18 01/04/20 History sennosides-docusate sodium 2 tab PO QAM 11/26/18 01/04/20 History [Senna-S] simvastatin [Zocor] 10 mg PO HS 11/26/18 01/04/20 History amoxicillin-pot clavulanate 1 tab PO BID 01/04/20 01/04/20 History cholecalciferol (vitamin D3) 125 mcg PO DAILY 01/04/20 01/04/20 History fentanyl 1 patch TRANSDERMAL Q72H 01/04/20 01/04/20 History haloperidol lactate 2 mg PO BID 01/04/20 01/04/20 History loperamide 2 mg PO Q8H PRN 01/04/20 01/04/20 History meloxicam 15 mg PO QAM 01/04/20 01/04/20 History venlafaxine 75 mg PO HS 01/04/20 01/04/20 History venlafaxine 150 mg PO QAM 01/04/20 01/04/20 History vitamin B complex-folic acid 1 cap PO QAM 01/04/20 01/04/20 History Patient History Medical History Alzheimer disease Chronic gout Chronic prescription opiate use Dementia (Chronic) Diabetes (Chronic) Gastrointestinal hemorrhage GERD (gastroesophageal reflux disease) (Chronic) Goals of care, counseling/discussion Hypertension (Acute) Muscle weakness Peripheral vascular disease Schizoaffective disorder, chronic condition (Chronic) Seizure disorder Stroke (Resolved) Urinary tract infection Social History Smoking Status: Unknown if ever smoked Communication Ability: Unable Current Living Situation: Long-Term Feels Safe at Home: Yes Review of Systems Review of Systems: Unobtainable due to cognitive status Physical Exam Constitutional: + thin, well groomed and comfortable Eyes: PERRL, conjunctivae normal, anicteric sclerae ENMT: external ear and nose normal, oropharynx normal Respiratory: Tracheostomy in place. Bilateral lower lungs diminished Cardiovascular: RRR, no murmur, no edema Gastrointestinal (Abdomen): normal bowel sounds, soft, nontender, no hepatosplenomegaly small umbilical hernia reducible Musculoskeletal: legs, L UE contracted Skin: no rashes, warm and dry no jaundice Psychiatric: Orientation: alert non verbal, not following commands Lymphatic: no lymphedema Results & Data ([facility]) Vital Signs (Past 12 Hours) Vital Signs Temp Pulse Resp BP Pulse Ox Pulse Ox 01/18/20 11:27 90 97 01/18/20 10:57 79 16 100 01/18/20 08:00 99 01/18/20 07:10 91 H 26 H 97 01/18/20 06:25 6 L 01/18/20 06:00 37.7 C H 89 97 01/18/20 05:51 37.7 C H 84 144/94 H 96 01/18/20 05:17 90 27 H 97 01/18/20 05:00 37.8 C H 91 H 96 01/18/20 04:51 37.8 C H 91 H 139/89 97 01/18/20 04:00 38.0 C H 80 99 01/18/20 03:51 37.9 C H 78 123/83 99 01/18/20 03:00 37.7 C H 90 98 01/18/20 02:51 37.7 C H 82 143/90 H 97 01/18/20 02:00 37.7 C H 87 98 01/18/20 01:51 37.8 C H 92 H 136/89 95 01/18/20 01:40 94 H 15 98
--- NOTE | 2020-01-18 16:00 | Ultrasound Report ---
BILATERAL LOWER EXTREMITY VENOUS DOPPLER HISTORY: Leg swelling. suspicion for DVT COMPARISON STUDY: None. FINDINGS: There is normal compressibility and flow within the bilateral lower extremity deep venous s ystems. Augmentation was unable to be performed. IMPRESSION: No DVT within the right or left lower extremity. ACT 112: Negative or not required by law. Electronically signed by: Heath Pham M.D. 01/18/2020 3:59 PM
--- NOTE | 2020-01-18 16:00 | Ultrasound Report ---
Bilateral UPPER EXTREMITY VENOUS DOPPLER HISTORY: Arm swelling. suspicion for DVT COMPARISON STUDY: None. FINDINGS: The lateral internal jugular veins are patent. There is normal flow within the bilateral blank bclavian veins. There is normal flow and compressibility within the the bilateral axillary, basilic, brachial, radial, ulnar, and visualized cephalic veins. IMPRESSION: No DVT within the right or left upper extremity. ACT 112: Negative or not required by law. Electronically signed by: Heath Pham M.D. 01/18/2020 3:58 PM
--- NOTE | 2020-01-18 16:21 | Hospitalist Progress Note ---
Date of Service January 18, 2020 Assessment & Plan (1) Sepsis associated hypotension: gram negatives in blood and urine growing quinalone resistant E Coli resolved now ESBL Klebsiella in sputum, antibiotics changed to Ceftolazone tazobactam after sputum grew ESBL Klebsiella fever and WBC up slightly today monitor closely (2) Acute respiratory failure with hypoxia: Pt intubated and ventilated, managed by icu team Poor response attempted weaning trials concern for persistent ventilation required. weaning trial of 01/13 resulted inseizure like activity Concerns for recurrent aspiration and protecting airway Discussion with family and the critical care attending on sunday 01/14 with decision for DNR now with tracheostomy, tolerating blow by oxygen on 01/17, essentially off ventilator support continue to monitor (3) Pneumonia: Aspiration vs. Health-care acquired (in custodial setting). ESBL klebsiella grew, now on ceftolzone/tazobactam fever, WBC up (4) Urinary tract infection: treated (5) Acute kidney injury: Suspected prerenal due to acute infection, dehydration (poor oral intake) and meloxicam use. Resolved Continue holding meloxicam. Patient is on tube feeds resolved hypernatremia. (6) Hypernatremia: Increased on admission due to NSS given as boluses in ER and to some extent LR maintenance. Unlikely DI given no polyuria noted. Resolved (7) Altered mental state: metabolic encephalopathy CT head negative for acute intracranial abnormality EEG unremarkable (8) Schizoaffective disorder, chronic condition: previously taking both Seroquel 100 mg twice daily (although notably on Seroquel 150mg TID in 2015) and haloperidol 2mg PO BID and 25 mg IM monthly. Consulted psychiatry did not feel that delirium is related to his psychotropic medications. (9) Psychosis: He has remained ventilated with support now via tracheostomy which was placed on 01/14. Continue to be unable to determine delusion or hallucinations given dementia and current cognitive state. (10) Dementia: Noted history of stroke with old left cerebral infarct. Although Alzheimer's noted on prior problem list Pt has been non functional at SNF for some time and has contracture of his right had that is pre hospital (11) Coronary artery disease: Unclear history of this. No prior stents or CABG Echocardiogram performed 01/03 shows normal EF, severe aortic stenosis. (12) Diabetes: HbA1C 6.6 Continue Novolog correction factor for now, plus scheduled lantus given reliable calorie intake (13) Hyperlipidemia: Hold simvastatin while NPO (14) GERD (gastroesophageal reflux disease): Now on Pepcid via his NG tube (15) Chronic prescription opiate use: Fentanyl patch removed on admission On chronic opiates for right foot and right hand pain.( hand contractures) Also taking Meloxicam 15mg QAM and [place] Q6H OFE as per prior documentation meds are on hold with sedation (16) Peripheral vascular disease: Noted history of this. Not on antiplatelets are noted above. Holding simvastatin while NPO and lethargic. (17) Chronic gout: previously on allopurinol (18) Seizure disorder: Valproic acid and Keppra levels ordered (although notably these have previously been normal or low). Continue IV valproic acid and restarted Keppra with neurology oversight after apparent seizure during weaning trial 01/13 pevious EEG - non-seizure activity noted despite head tremor during EEG. Very mild generalized slowing represents a very mild encephalopathy. 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 Suspect from prior stroke in setting of chronic anti-psychotic use. Consult neurology -is following and adjusting antiepileptic medications (21) Depression: previously on venlafaxine (22) DVT prophylaxis: lovenox daily Patient's brother who is only next of kin we can identify. The borther expressed during family meeting 01/14, that there are strong bahai overt ones regarding sanctity of life and living and as the next of kin, Octaviano, feels he cannot determine end of life, he is comfortable making the pt DNR at this time and did consent to a tracheostomy and PICC line plan for PEG tube for permanent access for nutrition and hydration will then need placement, may require LTACH, doubt local SNF could accommodate his current needs Admission and Anticipated Discharge Date Admission Date: January 04, 2020 Subjective patient obtunded, cannot answer questions tolerating trach collar had a fever, plan to work up with CXR, UA, pull PICC line d/w GI, plan for PEG, possibly on 01/18 ultimate plan will be for facility to take care of trach and PEG Review of Systems Review of Systems: Unobtainable due to endotracheal tube and Unobtainable due to reduced consciousness Physical Exam Constitutional: + ill appearing, comfortable and + lethargic Eyes: PERRL, conjunctivae normal, anicteric sclerae ENMT: external ear and nose normal, oropharynx normal Neck: trachea midline, no thyromegaly (tracheostomy midline) Respiratory: normal respiratory effort, lungs clear to auscultation (decreased breath sounds bases) Cardiovascular: RRR, no murmur, no edema Gastrointestinal (Abdomen): normal bowel sounds, soft, nontender, no hepatosplenomegaly Musculoskeletal: Head/Neck/Chest: normocephalic, head atraumatic and neck supple Extremities: + abnormal strength (generalized weakness, moving extremities) Skin: no rashes, warm and dry Neurologic: CN's II-XI intact bilaterally, deep tendon reflexes 2+ bilaterally, moves all extremities and + obtunded Psychiatric: Orientation: + not alert and + not oriented x 3 Lymphatic: no cervical or axillary lymphadenopathy Results & Data Results & Data ([facility]) Vital Signs (Past 12 Hours) Vital Signs Temp Pulse Resp BP Pulse Ox Pulse Ox 01/18/20 15:00 87 01/18/20 14:00 37.5 C 87 98 01/18/20 13:51 37.5 C 88 155/99 H 98 01/18/20 13:00 37.6 C H 86 99 01/18/20 12:51 37.6 C H 85 155/97 H 99 01/18/20 12:00 37.6 C H 90 98 01/18/20 11:51 37.6 C H 90 169/97 H 98 01/18/20 11:27 90 97 01/18/20 11:00 37.8 C H 87 97 01/18/20 10:57 79 16 100 01/18/20 10:51 37.8 C H 82 137/78 99 01/18/20 10:00 37.6 C H 81 100 01/18/20 09:51 37.6 C H 87 164/101 H 98 01/18/20 09:00 37.6 C H 89 97 01/18/20 08:51 37.7 C H 153/97 H 97 01/18/20 08:45 37.7 C H 109 H 155/91 H 95 01/18/20 08:00 37.7 C H 93 H 95 99 01/18/20 07:51 37.7 C H 95 H 166/117 H 96 01/18/20 07:10 91 H 26 H 97 01/18/20 07:00 37.7 C H 87 98 01/18/20 06:51 37.7 C H 80 145/100 H 99 01/18/20 06:25 6 L 01/18/20 06:00 37.7 C H 89 97 01/18/20 05:51 37.7 C H 84 144/94 H 96 01/18/20 05:17 90 27 H 97 01/18/20 05:00 37.8 C H 91 H 96 01/18/20 04:51 37.8 C H 91 H 139/89 97 Laboratory Results Laboratory Results - last 24 hr 01/17/20 01/17/20 01/17/20 16:52 20:54 20:56 WBC RBC Hgb Hct MCV MCH MCHC RDW Std Deviation RDW Coeff of Kasey Plt Count MPV Immature Gran % (Auto) Neut % (Auto) Lymph % (Auto) Hill % (Auto) Eos % (Auto) Baso % (Auto) Neut # (Auto) Lymph # (Auto) Hill # (Auto) Eos # (Auto) Baso # (Auto) Immature Gran # (Auto) Sodium Potassium Chloride Carbon Dioxide Anion Gap BUN Creatinine Est Cr Clr Drug Dosing Est GFR ( Amer) Est GFR (Non-Af Amer) BUN/Creatinine Ratio Glucose POC Glucose 114 H 58 L* 60 L* Calcium Phosphorus Magnesium 01/17/20 01/17/20 01/18/20 21:17 23:57 03:54 WBC 12.13 H RBC 3.04 L Hgb 9.5 L Hct 28.1 L MCV 92.4 MCH 31.3 MCHC 33.8 RDW Std Deviation 45.6 RDW Coeff of Kasey 13.6 Plt Count 355 MPV 9.1 Immature Gran % (Auto) 0.8 Neut % (Auto) 79.4 Lymph % (Auto) 11.0 Hill % (Auto) 8.3 Eos % (Auto) 0.4 Baso % (Auto) 0.1 Neut # (Auto) 9.63 H Lymph # (Auto) 1.33 Hill # (Auto) 1.01 H Eos # (Auto) 0.05 Baso # (Auto) 0.01 Immature Gran # (Auto) 0.10 H Sodium Potassium Chloride Carbon Dioxide Anion Gap BUN Creatinine Est Cr Clr Drug Dosing Est GFR ( Amer) Est GFR (Non-Af Amer) BUN/Creatinine Ratio Glucose POC Glucose 140 H 147 H Calcium Phosphorus Magnesium 01/18/20 01/18/20 01/18/20 03:54 03:56 07:37 WBC RBC Hgb Hct MCV MCH MCHC RDW Std Deviation RDW Coeff of Kasey Plt Count MPV Immature Gran % (Auto) Neut % (Auto) Lymph % (Auto) Hill % (Auto) Eos % (Auto) Baso % (Auto) Neut # (Auto) Lymph # (Auto) Hill # (Auto) Eos # (Auto) Baso # (Auto) Immature Gran # (Auto) Sodium 136 Potassium 3.7 Chloride 99 Carbon Dioxide 31 Anion Gap 6.0 BUN 22 H Creatinine 0.73 Est Cr Clr Drug Dosing 88.7 Est GFR ( Amer) 108.2 Est GFR (Non-Af Amer) 93.3 BUN/Creatinine Ratio 29.7 H Glucose 167 H POC Glucose 170 H 173 H Calcium 8.7 Phosphorus 2.6 Magnesium 1.7 L 01/18/20 12:07 WBC RBC Hgb Hct MCV MCH MCHC RDW Std Deviation RDW Coeff of Kasey Plt Count MPV Immature Gran % (Auto) Neut % (Auto) Lymph % (Auto) Hill % (Auto) Eos % (Auto) Baso % (Auto) Neut # (Auto) Lymph # (Auto) Hill # (Auto) Eos # (Auto) Baso # (Auto) Immature Gran # (Auto) Sodium Potassium Chloride Carbon Dioxide Anion Gap BUN Creatinine Est Cr Clr Drug Dosing Est GFR ( Amer) Est GFR (Non-Af Amer) BUN/Creatinine Ratio Glucose POC Glucose 209 H Calcium Phosphorus Magnesium Microbiology 01/11/20 13:35 Sputum,Vent Suction Gram Stain - Final 01/11/20 13:35 Sputum,Vent Suction Sputum Culture - Final Klebsiella pneumoniae ESBL 01/17/20 12:15 Blood Aerobic Blood Culture - Preliminary No growth in Aerobic bottle after 24 hours. 01/17/20 12:15 Blood Anaerobic Blood Culture - Preliminary No growth in Anaerobic bottle after 24 hours. 01/17/20 12:22 Blood Aerobic Blood Culture - Preliminary No growth in Aerobic bottle after 24 hours. 01/17/20 12:22 Blood Anaerobic Blood Culture - Preliminary No growth in Anaerobic bottle after 24 hours. 01/18/20 10:20 Blood Fungal Smear - Final 01/17/20 16:00 Sputum,Trach Gram Stain - Final 01/17/20 16:00 Sputum,Trach Sputum Culture - Preliminary Gram negative bacilli 01/05/20 12:50 Bronch Wash,Right Middle Lobe Fungal Smear - Final 01/05/20 12:50 Bronch Wash,Right Middle Lobe Fungal Culture - Preliminary Sherry glabrata complex Yeast- ident to follow 01/05/20 12:50 Bronch Wash,Right Middle Lobe Acid Fast Bacilli Smear - Final 01/05/20 12:50 Bronch Wash,Right Middle Lobe Acid Fast Bacilli Culture - Preliminary No Acid-Fast Bacilli Isolated - Report 2, Additional Report to Follow. 01/05/20 16:22 Blood Aerobic Blood Culture - Final No growth in Aerobic bottle after 5 days. 01/05/20 16:22 Blood Anaerobic Blood Culture - Final No growth in Anaerobic bottle after 5 days. 01/05/20 16:17 Blood Aerobic Blood Culture - Final No growth in Aerobic bottle after 5 days. 01/05/20 16:17 Blood Anaerobic Blood Culture - Final No growth in Anaerobic bottle after 5 days. 01/04/20 16:59 Blood Aerobic Blood Culture - Final Escherichia coli 01/04/20 16:59 Blood Anaerobic Blood Culture - Final No growth in Anaerobic bottle after 5 days. 01/04/20 16:51 Blood Aerobic Blood Culture - Final No growth in Aerobic bottle after 5 days. 01/04/20 16:51 Blood Anaerobic Blood Culture - Final No growth in Anaerobic bottle after 5 days. 01/05/20 12:50 Bronch Wash,Right Middle Lobe Gram Stain - Final 01/05/20 12:50 Bronch Wash,Right Middle Lobe Bronchoalveolar Lavage Culture - Final Yeast not Sherry albicans/dub 01/04/20 22:20 Nasal MRSA Surveillance Culture - Final No Methicillin Resistant Staph Aureus isolated. ---Surveillance culture only--- 01/04/20 17:02 Urine,Straight Cath Urine Culture - Final Escherichia coli Medications Administered Current Inpatient Medications Albuterol (Duoneb) 3 ml NEB QIDR OFE Stop: 02/04/20 06:59 Last Admin: 01/18/20 15:53 Dose: 3 ml Documented by: Aspirin (Aspirin Chew) 81 mg PO DAILY OFE Stop: 02/06/20 09:59 Last Admin: 01/18/20 08:12 Dose: 81 mg Documented by: Dextrose (Dextrose 50%) 25 - 50 ml IV UD PRN; Protocol PRN Reason: Hypoglycemia Protocol Stop: 02/03/20 20:13 Last Admin: 01/17/20 21:01 Dose: 25 ml Documented by: Divalproex Sodium (Depakote Sprinkle) 500 mg PO TID OFE Stop: 02/13/20 08:59 Last Admin: 01/18/20 08:08 Dose: 500 mg Documented by: Enoxaparin Sodium (Lovenox) 40 mg SQ DAILY@1400 [facility] Stop: 02/06/20 13:59 Last Admin: 01/17/20 13:14 Dose: 40 mg Documented by: Enteral Nutritional Formula (Impact 1.0 Rohit) 1,000 ml NG UD PRN; Protocol PRN Reason: TUBE FEEDS Stop: 02/05/20 11:49 Last Admin: 01/18/20 12:43 Dose: 1,000 ml Documented by: Fentanyl (Duragesic) 25 mcg TD Q72H OFE Stop: 02/01/20 10:59 Last Admin: 01/18/20 12:33 Dose: 25 mcg Documented by: Glucagon (Glucagen) 1 mg SQ UD PRN; Protocol PRN Reason: Hypoglycemia Protocol Stop: 02/03/20 20:13 Glucose (Dex4 Glucose) 4 - 8 tabs PO UD PRN; Protocol PRN Reason: Hypoglycemia Protocol Stop: 02/03/20 20:13 Glucose (Glucose 40%) 15 - 30 gm PO UD PRN; Protocol PRN Reason: Hypoglycemia Protocol Stop: 02/03/20 20:13 Heparin Sodium (Beef Lung) (Heparin Sod 10 Unit/Ml Flush) 5 ml FLUSH PRN PRN PRN Reason: Flush Stop: 02/14/20 17:12 Lorazepam (Ativan) 1 mg in 2 mls @ 2 mls/min IV Q4H PRN PRN Reason: Sedation Stop: 02/12/20 15:21 Last Admin: 01/17/20 18:45 Dose: 2 mls/min Documented by: Ceftolozane/Tazobactam 3,000 (mg/ Dextrose) 122.8 mls @ 111.4 mls/hr IV Q8H OFE Stop: 01/23/20 23:59 Last Infusion: 01/18/20 10:01 Dose: Infused Documented by: Caspofungin 50 mg/ Sodium (Chloride) 260 mls @ 250 mls/hr IV Q24H [facility]; Protocol Stop: 01/25/20 18:59 Insulin Aspart (Novolog Flexpen) 0 units SC Q4 OFE; Protocol Stop: 02/03/20 20:44 Last Admin: 01/18/20 12:34 Dose: 5 units Documented by: Insulin Glargine (Lantus Solostar Pen) 10 units SC QAM [facility] Stop: 02/17/20 08:59 Last Admin: 01/18/20 08:32 Dose: 10 units Documented by: Lansoprazole (Prevacid) 15 mg PO QAM OFE Stop: 02/12/20 08:59 Last Admin: 01/18/20 08:08 Dose: 15 mg Documented by: Levetiracetam (Keppra) 500 mg PO Q12H [facility] Stop: 02/17/20 20:59 Miscellaneous (Carbohydrates For Hypoglycemia) 15 - 30 gm PO UD PRN PRN Reason: Hypoglycemia Protocol Stop: 02/03/20 20:13 Miscellaneous (Icu Electrolyte Replacement Protocol) 1 ea N/A UD PRN PRN Reason: for e-lyte repletion Stop: 01/22/20 06:30 Miscellaneous (Fentanyl Patch Remove & Waste) 1 ea N/A Q72H [facility] Stop: 02/20/20 10:58 Miscellaneous (Fentanyl Patch Check Placement) 1 ea N/A QS [facility] Stop: 02/17/20 15:59 Miscellaneous Information (Consult Glycemic Management Pharmacy) 1 ea N/A UD PRN PRN Reason: Consult Stop: 02/16/20 08:55 Sterile Water (Tube Feeding Water Flush) 150 ea GT Q8H OFE Stop: 02/14/20 11:59 Last Admin: 01/18/20 12:35 Dose: 150 ea Documented by: Venlafaxine HCl (Effexor) 37.5 mg PO BID [facility] Stop: 02/17/20 20:59 PG Care Time/CCT Total # of Minutes Spent Total Time Spent with Patient: Total time spent is greater than 50% in coordination of care (as documented) at patient's floor/unit and/or counseling patient: Coding Level of Care Code 91296 Subseq Hosp Care Lvl 2 Diagnoses Sepsis associated hypotension A41.9; I95.9 Acute respiratory failure with hypoxia J96.01 Pneumonia J18.9 Urinary tract infection N39.0 Acute kidney injury N17.9 Hypernatremia E87.0 Altered mental state R41.82 Schizoaffective disorder, chronic condition F25.8 Psychosis F29 Dementia F03.90 Coronary artery disease I25.10 Diabetes E11.9 Hyperlipidemia E78.5 GERD (gastroesophageal reflux disease) K21.9 Chronic prescription opiate use Z79.891 Peripheral vascular disease I73.9 Chronic gout [id number] Seizure disorder G40.909 Muscle weakness M62.81 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
[2020-01-18] MEDS: ENOXAPARIN INJ 40 MG/0.4 ML SYR SQ SCH (16:57)
[2020-01-18] MEDS: CHECK FENTANYL PATCH PLACEMENT SCH (16:57)
[2020-01-18] MEDS: CASPOFUNGIN 50 MG in SODIUM CHLORIDE 0.9% 250 ML IV SCH (19:54)
[2020-01-18] MEDS: VENLAFAXINE HCL 37.5 MG TAB PO SCH (20:53)
[2020-01-19] MEDS: INSULIN ASPART 100 UNITS/ML 3 ML PEN SC SCH ×6 (00:14→20:37)
[2020-01-19] MEDS: CHECK FENTANYL PATCH PLACEMENT SCH ×3 (00:14→15:52)
[2020-01-19] MEDS: CEFTOLOZANE/TAZOBACTAM 3,000 MG in DEXTROSE 5% 100 ML IV SCH ×3 (00:15→18:12)
[2020-01-19] MEDS: TUBE FEEDING WATER FLUSH GT SCH ×3 (04:09→20:51)
[2020-01-19 04:13] LABS: Basophils # (auto) 0.03 K/uL (0-0.2); Basophils % (auto) 0.2 %; Eosinophils # (auto) 0.05 K/uL (0-0.5); Eosinophils % (auto) 0.3 %; Hematocrit (blood only) 30.4 % (42-52); Hemoglobin 10.3 g/dL (14.0-18.0); Immature Granulocytes # (auto) 0.17 K/uL (0.00-0.02); Lymphocytes % (auto) 9.2 %; Mean Corpuscular Hemoglobin 31.3 pg (25-34); Mean Corpuscular Hgb Conc 33.9 g/dL (32-36); Mean Corpuscular Volume 92.4 fL (80-100); Mean Platelet Volume 8.8 fL (7.4-10.4); Monocytes # (auto) 1.42 K/uL (0.11-0.59); Monocytes % (auto) 8.2 %; Neutrophils # (auto) 14.09 K/uL (1.4-6.5); Neutrophils % (auto) 81.1 %; Platelet Count 381 K/uL (130-400); RDW Coefficient of Variation 13.4 % (11.5-14.5); RDW Standard Deviation 45.1 fL (36.4-46.3); Red Blood Count 3.29 M/uL (4.7-6.1); White Blood Count 17.36 K/uL (4.8-10.8)
[2020-01-19 04:31] LABS: Albumin Level 2.1 gm/dl (3.4-5.0); BUN Creatinine Ratio 29.4 (10-20); Bilirubin Direct 0.1 mg/dl (0-0.2); Calcium 8.9 mg/dl (8.5-10.1); Creatinine Clr Calc Pharmacy 86.8 ml/min; Est GFR (African American) 107.6; Est GFR (Non-African American) 92.8; Magnesium 1.9 mg/dl (1.8-2.4)
[2020-01-19 04:34] LABS: Bilirubin,Total 0.5 mg/dl (0.2-1); Phosphorus 2.9 mg/dl (2.5-4.9); Total Protein 6.8 gm/dl (6.4-8.2)
[2020-01-19] MEDS ORDERED: MAGNESIUM SULFATE / D5W 1 GM/100 ML BAG IV ONE (06:00)
[2020-01-19] MEDS: ALBUT/IPRATROP 3MG/0.5MG NEB 3 ML VIAL NEB SCH ×4 (07:06→19:24)
--- NOTE | 2020-01-19 07:46 | Critical Care Progress Note ---
Date of Service January 19, 2020 Assessment & Plan (1) Acute respiratory failure with hypoxia: Reason Critically Ill: [69]-year-old male here with a PMHx significant for schizoaffective disorder, dementia, CAD, DM2, HLD, chronic opiate use, seizure disorder who presented with worsening agitation and aspiration pneumonia and who was admitted for hypotension secondary to sepsis. Neuro - Encephalopathy, Seizure Disorder CAM ICU: not applicable Sedation: none Analgesia: none Encephalomalacia - poor respiratory drive. Frequently failing vent weaning trials and alternating between apnea and tachypnea off the vent. - No metabolic derangements at this time to indicate cause - likely secondary to years of antipsychotic medication use/seizure disorder/worsening dementia and psychosis Seizure Disorder - On Depakote 500 TID at home, Keppra held at admission and then restarted after patient witnessed having seizures - EEG: no focal epileptogenic discharges visualized, mildly abnormal with very mild generalized slow activity of nonspecific nature. - CT head: chronic encephalomalacia with old left frontal lobe infarct, ex vacuo ventriculomegaly - Neuro recommendations: IV Keppra 500 BID for seizure control, Depakote 500 TID Schizoaffective disorder/Schizophrenia + Tremoring - one time haloperidol decanoate 25 mg IM, per monthly at home dose - restarting Venlafaxine per psychiatry's recommendations. - Haldol PRN for agitation, discontinuing seroquel. Chronic Opiate use - Restarted on low dose 25 mcg fentanyl patch Cardiac - Occasionally has small runs of tachycardia that resolve. Frequent PVCs. Tachycardia likely secondary to neuroagitation, no acute concerns at this time. Respiratory Acute Hypoxic Respiratory Failure s/p trach placement - breathing well off vent, 6L O2 - placed back on vent for EPG placement, will try to wean back off later today - will need a trach replacement on 01/21 GI - Protein malnourishment - PEG tube placed today - recheck with GI tomorrow, no meds through PEG until 01/18 9 pm, no food until rechecked by GI tomorrow - plan to switch to bolus feeds through Gtube after able to utilize RENAL/LYTES - No significant electrolyte derangement. Replace lytes as needed. - No concerns at this time. d/c menjivar, replace with condom cath while evaluating for fever source ENDO - DM2 - 10u lantus daily, SSI with fluctuations of glucose HEME - Anemia - 10.5, down from 13 on admission. likely secondary to blood draws and hemodilution. ID - Fever of unknown source - 24 hours from last fever - Trach sputum growing G- bacilli - other sputum culture growing klebsiella ESBL - both sets of blood cultures pending; negative at 24 hours - urine culture pending - ultrasounds of upper and lower extremities negative for DVT - coverage with ceftolazone/tazobactam Intra pulmonary fungal infection - cathy glabrata growing from bronch washing - caspofungin for coverage - optho exam yesterday negative for intraocular fungus growth INTEGUMENTARY - no concerns at this time. LINES/IV ACCESS - L PIV DVT PROPHYLAXIS - lovenox 40 daily Dispo: downgrade to LTAC/SNF pending approval Thank you for allowing us to be part of this patient's care. Please refer to Dr. Douglas's documentation for any further recommendations. (2) Sepsis associated hypotension: (3) Pneumonia: (4) Acute kidney injury: (5) Encephalopathy: (6) Goals of care, counseling/discussion: (7) Extrapyramidal and movement disorder: (8) Seizure disorder: (9) Dementia: (10) Chronic prescription opiate use: (11) Peripheral vascular disease: (12) Chronic gout: (13) Hypertension: (14) Diabetes: (15) Schizoaffective disorder, chronic condition: (16) Hyperlipidemia: (17) Coronary artery disease: (18) Acute encephalopathy: Admission and Anticipated Discharge Date Admission Date: January 04, 2020 Supervising Physician Co-Signing Physician Notes Dr. Leonard was resident physician during care of patient. I separately evaluated patient for jay portions of the history and the exam. I was present during the critical portion of medical decision making, and I discussed the case with the resident. I generally agree with the findings and plan. Patient successfully underwent PEG placement today. We will wean the patient from the ventilator to aerosol trach mask after recovery from anesthesia. Subjective nonverbal, eyes not opening this AM while in the room. not responsive to commands. Review of Systems Review of Systems: Unobtainable due to cognitive status Physical Exam Physical Exam: Constitutional: laying curled up in bed, unkempt, non responsive to speech or pain, frequent tongue fasciculations Eyes: opens and moves eyes spontaneously, large amount of mucus coating eyelashes, not tracking finger well with command Cardiac: regular rate and rhythm with frequent PVCs, 3/6 crescendo- decrescendo murmur Pulm: tracheostomy in place CTA BL, some coarse rhonchorous breath sounds at left lung base, otherwise moving good air bilaterally Abd: soft, nontender, nondistended, normal bowel sounds, no rebound or guarding : menjivar in place, no hematuria Extremities: poor peripheral pulses, cold feet Neuro: GCS 6, not responsive to commands, not responsive to pain, opens eyes spontaneously Results & Data Results & Data ([facility]) Vital Signs (Past 12 Hours) Vital Signs Temp Pulse Pulse Resp BP Pulse Ox 01/19/20 07:12 91 H 20 96 01/19/20 04:17 88 146/87 H 94 01/19/20 04:00 36.8 C 85 93 01/19/20 03:52 91 H 143/106 H 95 01/19/20 03:00 89 95 01/19/20 02:52 89 146/85 H 95 01/19/20 02:00 77 95 01/19/20 01:52 76 95 01/19/20 01:51 71 130/80 92 01/19/20 01:00 93 H 95 01/19/20 00:51 91 H 143/95 H 94 01/19/20 00:00 89 96 01/18/20 23:57 37 C 91 H 135/92 95 01/18/20 23:51 91 H 145/101 H 93 01/18/20 23:00 87 97 01/18/20 22:51 85 145/91 H 97 01/18/20 22:00 75 98 01/18/20 21:51 77 136/82 96 01/18/20 21:00 91 H 95 01/18/20 20:52 90 142/107 H 94 01/18/20 20:17 88 151/91 H 95 01/18/20 20:00 36.8 C 91 H 95 01/18/20 19:51 93 H 163/110 H 96 Laboratory Results WBC 17.36 K/uL (4.8-10.8) H 01/19/20 04:00 RBC 3.29 M/uL (4.7-6.1) L 01/19/20 04:00 Hgb 10.3 g/dL (14.0-18.0) L 01/19/20 04:00 POC Hgb 9.5 g/dl (14.0-18.0) L 01/15/20 05:05 Hct 30.4 % (42-52) L 01/19/20 04:00 POC Hct 28 % (42-52) L 01/15/20 05:05 MCV 92.4 fL (80-100) 01/19/20 04:00 MCH 31.3 pg (25-34) 01/19/20 04:00 MCHC 33.9 g/dL (32-36) 01/19/20 04:00 RDW Std Deviation 45.1 fL (36.4-46.3) 01/19/20 04:00 RDW Coeff of Kasey 13.4 % (11.5-14.5) 01/19/20 04:00 Plt Count 381 K/uL (130-400) 01/19/20 04:00 MPV 8.8 fL (7.4-10.4) 01/19/20 04:00 Immature Gran % (Auto) 1.0 % 01/19/20 04:00 Neut % (Auto) 81.1 % 01/19/20 04:00 Lymph % (Auto) 9.2 % 01/19/20 04:00 [place]utherford % (Auto) 8.2 % 01/19/20 04:00 Eos % (Auto) 0.3 % 01/19/20 04:00 Baso % (Auto) 0.2 % 01/19/20 04:00 Neut # (Auto) 14.09 K/uL (1.4-6.5) H 01/19/20 04:00 Lymph # (Auto) 1.60 K/uL (1.2-3.4) 01/19/20 04:00 [place]utherford # (Auto) 1.42 K/uL (0.11-0.59) H 01/19/20 04:00 Eos # (Auto) 0.05 K/uL (0-0.5) 01/19/20 04:00 Baso # (Auto) 0.03 K/uL (0-0.2) 01/19/20 04:00 Immature Gran # (Auto) 0.17 K/uL (0.00-0.02) H 01/19/20 04:00 Absolute Nucleated RBC Cancelled 01/15/20 04:48 Nucleated RBC % (auto) Cancelled 01/15/20 04:48 Neutrophils % (Manual) Cancelled 01/15/20 04:48 Band Neutrophils % Cancelled 01/15/20 04:48 Lymphocytes % (Manual) Cancelled 01/15/20 04:48 Prolymphocyte % Cancelled 01/15/20 04:48 Reactive Lymphs % (Man) Cancelled 01/15/20 04:48 Monocytes % (Manual) Cancelled 01/15/20 04:48 Eosinophils % (Manual) Cancelled 01/15/20 04:48 Basophils % (Manual) Cancelled 01/15/20 04:48 Metamyelocytes % (Man) Cancelled 01/15/20 04:48 Myelocytes % (Man) Cancelled 01/15/20 04:48 Promyelocytes % (Man) Cancelled 01/15/20 04:48 Blast Cells % (Manual) Cancelled 01/15/20 04:48 Plasma Cell % (Manual) Cancelled 01/15/20 04:48 Other Cells % Cancelled 01/15/20 04:48 Nucleated RBC % Cancelled 01/15/20 04:48 Neutrophils # (Manual) Cancelled 01/15/20 04:48 Band Neutrophils # Cancelled 01/15/20 04:48 Total Absolute Neuts Cancelled 01/15/20 04:48 Lymphocytes # (Manual) Cancelled 01/15/20 04:48 Prolymphocyte # Cancelled 01/15/20 04:48 Reactive Lymphs # Cancelled 01/15/20 04:48 Total Abs Lymphocytes Cancelled 01/15/20 04:48 Monocytes # (Manual) Cancelled 01/15/20 04:48 Eosinophils # (Manual) Cancelled 01/15/20 04:48 Basophils # (Manual) Cancelled 01/15/20 04:48 Metamyelocytes # (Man) Cancelled 01/15/20 04:48 Myelocytes # (Manual) Cancelled 01/15/20 04:48 Promyelocytes # (Man) Cancelled 01/15/20 04:48 Blast Cells # (Man) Cancelled 01/15/20 04:48 Plasma Cell # (Manual) Cancelled 01/15/20 04:48 Other Cells # Cancelled 01/15/20 04:48 Nucleated RBCs # (Man) Cancelled 01/15/20 04:48 Hypersegmented Neuts Cancelled 01/15/20 04:48 Hyposegmented Neuts Cancelled 01/15/20 04:48 Hypogranular Neuts Cancelled 01/15/20 04:48 Large Granular Lymphs Cancelled 01/15/20 04:48 # Lrg Granular Lymphs Cancelled 01/15/20 04:48 Hairy Cells Cancelled 01/15/20 04:48 Smudge Cells Cancelled 01/15/20 04:48 Toxic Granulation Cancelled 01/15/20 04:48 Toxic Vacuolation Cancelled 01/15/20 04:48 Dohle Bodies Cancelled 01/15/20 04:48 Marcio Rods Cancelled 01/15/20 04:48 Platelet Estimate Cancelled 01/15/20 04:48 Hypogranular Platelets Cancelled 01/15/20 04:48 Clumped Platelets Cancelled 01/15/20 04:48 Giant Platelets Cancelled 01/15/20 04:48 Platelet Satelliting Cancelled 01/15/20 04:48 RBC Morphology Cancelled 01/15/20 04:48 Polychromasia Cancelled 01/15/20 04:48 Hypochromasia Cancelled 01/15/20 04:48 Poikilocytosis Cancelled 01/15/20 04:48 Basophilic Stippling Cancelled 01/15/20 04:48 Anisocytosis Cancelled 01/15/20 04:48 Microcytosis Cancelled 01/15/20 04:48 Macrocytosis Cancelled 01/15/20 04:48 Spherocytes Cancelled 01/15/20 04:48 Pappenheimer Bodies Cancelled 01/15/20 04:48 Sickle Cells Cancelled 01/15/20 04:48 Target Cells Cancelled 01/15/20 04:48 Tear Drop Cells Cancelled 01/15/20 04:48 Ovalocytes Cancelled 01/15/20 04:48 Stomatocytes Cancelled 01/15/20 04:48 [place] Bodies Cancelled 01/15/20 04:48 Echinocytes Cancelled 01/15/20 04:48 Acanthocytes (Spur) Cancelled 01/15/20 04:48 Rouleaux Cancelled 01/15/20 04:48 RBC Agglutinates Cancelled 01/15/20 04:48 Schistocytes Cancelled 01/15/20 04:48 RBC Morph Comment Cancelled 01/15/20 04:48 ESR 32 mm/hr (0-14) H 01/04/20 16:51 Sezary Cell Cancelled 01/15/20 04:48 PT 11.2 Seconds (9.0-12.0) 01/04/20 16:51 INR 1.1 (0.9-1.1) 01/04/20 16:51 APTT 26.2 Seconds (21.0-31.0) 01/04/20 16:51 PTT Ratio 0.9 01/04/20 16:51 Specimen Type Arterial 01/14/20 05:23 Sample Site L Radial 01/16/20 05:37 Patient Temperature 37.2 01/14/20 05:23 POC pH 7.56 (7.35-7.45) H* 01/16/20 05:37 POC pCO2 36 mmHg (35-46) 01/16/20 05:37 POC pO2 88 mmHg (80-95) 01/16/20 05:37 POC HCO3 32 errol/L (19-24) H 01/16/20 05:37 POC Total CO2 33 mmol/L (24-31) H 01/16/20 05:37 POC Base Excess 9.0 errol/L (-9-1.8) H 01/16/20 05:37 O2 Sat Pulse Oximetry 97 01/14/20 05:23 ABG pH (Temp Correct) 7.456 (7.35-7.45) H 01/15/20 05:05 ABG pCO2 (Temp Corrct 47 mmHg (35-46) H 01/15/20 05:05 POC ABG pO2 at Pt Temp 81 01/15/20 05:05 POC ABG O2 Sat 98.0 % (90-95) H 01/16/20 05:37 Yves Test Pass 01/16/20 05:37 VBG pH 7.39 (7.36-7.41) 01/05/20 12:52 VBG pCO2 41 mmHg (38-50) 01/05/20 12:52 VBG pO2 86 mmHg 01/05/20 12:52 VBG HCO3 25 mmol/L 01/05/20 12:52 VBG O2 Saturation 96.7 % 01/05/20 12:52 VBG Base Excess -0.4 mEq/L 01/05/20 12:52 Barometric Pressure 733.7 mm/Hg 01/05/20 12:52 O2 Delivery Device Ventilator 01/16/20 05:37 POC O2 Rate 6 01/16/20 05:37 Minute Ventilation 6.2 01/16/20 05:37 Vent Mode CPAP 01/14/20 05:23 POC FiO2 30 % 01/15/20 05:05 Tidal Volume 450 01/16/20 05:37 End Tidal CO2 60 01/14/20 05:23 PEEP 5 01/16/20 05:37 Pressure Support Vent 10 01/15/20 05:05 POC Sodium 131 mmol/L (135-144) L 01/15/20 05:05 Sodium 133 mmol/L (136-145) L 01/19/20 04:00 POC Potassium 3.9 mmol/L (3.3-5.0) 01/15/20 05:05 Potassium 4.0 mmol/L (3.5-5.1) 01/19/20 04:00 POC Chloride 120 mmol/L (101-112) H 01/04/20 17:20 Chloride 97 mmol/L (98-107) L 01/19/20 04:00 Carbon Dioxide 29 mmol/L (21-32) 01/19/20 04:00 POC Total CO2 28 mmol/L (24-31) 01/04/20 17:20 Anion Gap 7.0 (3-11) 01/19/20 04:00 POC Anion Gap 12.0 mmol/L (16-25) L 01/04/20 17:20 POC BUN 54 mg/dl (7-18) H 01/04/20 17:20 BUN 22 mg/dl (7-18) H 01/19/20 04:00 Creatinine 0.74 mg/dl (0.6-1.4) 01/19/20 04:00 POC Creatinine 1.9 mg/dl (0.6-1.3) H 01/04/20 17:20 Est Cr Clr Drug Dosing 86.8 ml/min 01/19/20 04:00 Est GFR ( Amer) 107.6 01/19/20 04:00 Est GFR (Non-Af Amer) 92.8 01/19/20 04:00 BUN/Creatinine Ratio 29.4 (10-20) H 01/19/20 04:00 Glucose 91 mg/dl (70-99) 01/19/20 04:00 POC Glucose 127 mg/dl (70-99) H 01/19/20 11:24 POC Glucose (other) 205 mg/dl (70-99) H 01/04/20 17:20 Estimat Average Glucose 143 mg/dl 01/05/20 06:35 Hemoglobin A1c 6.6 % (4.5-5.6) H 01/05/20 06:35 Osmolality 359 mOsm/kg (280-300) H* 01/05/20 13:02 Lactate 1.3 mmol/L (0.4-2.0) 01/06/20 01:00 Calcium 8.9 mg/dl (8.5-10.1) 01/19/20 04:00 POC Ioniz Calcium Cooper 1.11 mmol/l (1.12-1.32) L 01/04/20 17:20 Phosphorus 2.9 mg/dl (2.5-4.9) 01/19/20 04:00 Magnesium 1.9 mg/dl (1.8-2.4) 01/19/20 04:00 Ferritin 504.2 ng/ml (8-388) H 01/04/20 16:51 Total Bilirubin 0.5 mg/dl (0.2-1) 01/19/20 04:00 Direct Bilirubin 0.1 mg/dl (0-0.2) 01/19/20 04:00 GGT 40 U/L (3-70) 01/07/20 10:15 AST 22 U/L (15-37) 01/19/20 04:00 ALT 36 U/L (12-78) 01/19/20 04:00 Alkaline Phosphatase 76 U/L (45-117) 01/19/20 04:00 Ammonia 29.0 umol/L (11-32) 01/14/20 10:19 Lactate Dehydrogenase 304 U/L (87-241) H 01/04/20 16:59 Total Creatine Kinase 38 U/L (39-308) L 01/04/20 16:51 CK-MB (CK-2) < 1.0 ng/ml (0.5-3.6) 01/04/20 16:51 CK/CKMB % Calc TNP 01/04/20 16:51 Troponin I < 0.015 ng/ml (0-0.045) 01/04/20 16:51 C-Reactive Protein 44.30 mg/dl (0-0.29) H 01/04/20 16:51 Total Protein 6.8 gm/dl (6.4-8.2) 01/19/20 04:00 Albumin 2.1 gm/dl (3.4-5.0) L 01/19/20 04:00 Globulin 4.2 gm/dl (2.5-4.0) H 01/12/20 04:31 Albumin/Globulin Ratio 0.5 (0.9-2) L 01/12/20 04:31 Triglycerides 401 mg/dl (0-150) H 01/07/20 10:15 Lipase 248 U/L (73-393) 01/07/20 10:15 Procalcitonin 0.10 ng/ml (0-0.5) 01/17/20 12:15 Specimen Hemolysis 01/07/20 04:33 Urine Color [place] 01/04/20 17:02 Urine Appearance Cloudy (Clear) A 01/04/20 17:02 Urine pH 5.0 (4.5-7.5) 01/04/20 17:02 Ur Specific [place] 1.038 (1.000-1.030) H 01/04/20 17:02 Urine Protein 2+ (Negative) H 01/04/20 17:02 Urine Glucose (UA) Negative (Negative) 01/04/20 17:02 Urine Ketones Trace (Negative) H 01/04/20 17:02 Urine Blood 3+ (Negative) H 01/04/20 17:02 Urine Nitrite Positive (Negative) A 01/04/20 17:02 Urine Bilirubin Negative (Negative) 01/04/20 17:02 Urine Urobilinogen Negative (Negative) 01/04/20 17:02 Ur Leukocyte Esterase 1+ (Negative) H 01/04/20 17:02 Urine WBC (Auto) 5-10 /hpf (0-5) H 01/04/20 17:02 Urine RBC (Auto) >30 /hpf (0-4) H 01/04/20 17:02 U Hyaline Cast (Auto) 1-5 /lpf (0-5) 01/04/20 17:02 U Epithel Cells (Auto) >30 /lpf (0-5) H 01/04/20 17:02 Urine Bacteria (Auto) 2+ (Negative) H 01/04/20 17:02 Urine Yeast Not Reportable 01/04/20 17:02 Urine Osmolality 805 mOsm/kg (500-800) H 01/05/20 14:30 Urine Sodium 24 mmol/L 01/05/20 14:30 Urine Potassium 78.7 mmol/L 01/05/20 14:30 Urine Chloride 26 mmol/L 01/05/20 14:30 Fluid Neutrophils % 94 % 01/05/20 12:50 Fluid Lymphocytes % 3 % 01/05/20 12:50 Fluid Eosinophils % 0 % 01/05/20 12:50 Fl Monocyt/Macrophag % 3 % 01/05/20 12:50 Nasal Screen MRSA (PCR) Negative (Negative) 01/05/20 14:30 Random Vancomycin 13.6 mcg/ml 01/06/20 04:14 Valproic Acid 64 mcg/ml (50-100) 01/16/20 13:15 Levetiracetam 29.5 mcg/mL (12.0-46.0) 01/05/20 06:35 Adenovirus (PCR) Not Detected (NotDetected) 01/04/20 17:00 B. pertussis DNA (PCR) Not Detected (NotDetected) 01/04/20 17:00 B.parapertussis DNA PCR Not Detected (NotDetected) 01/04/20 17:00 C. pneumoniae DNA (PCR) Not Detected (NotDetected) 01/04/20 17:00 Coronavirus OC43 (PCR) Not Detected (NotDetected) 01/04/20 17:00 Coronavirus HKU1 (PCR) Not Detected (NotDetected) 01/04/20 17:00 Coronavirus 229E (PCR) Not Detected (NotDetected) 01/04/20 17:00 COVID-19 PCR NEGATIVE (Negative) 01/04/20 17:30 Coronavirus NL63 (PCR) Not Detected (NotDetected) 01/04/20 17:00 Hepatitis A IgM Ab NON-REACTIVE (NON-REACTIVE) 01/07/20 10:15 Hep Bs Antigen Neg (Neg) 01/07/20 10:15 Hep B Core IgM Ab NON-REACTIVE (NON-REACTIVE) 01/07/20 10:15 Hepatitis C Antibody Neg (Neg) 01/07/20 10:15 Human Metapneumovir PCR Not Detected (NotDetected) 01/04/20 17:00 Influenza Type A (PCR) Cancelled 01/04/20 17:00 Influenza Type A (PCR) Not Detected (NotDetected) 01/04/20 17:00 Influenza Type B (PCR) Cancelled 01/04/20 17:00 Influenza Type B (PCR) Not Detected (NotDetected) 01/04/20 17:00 Legionella Source Cancelled 01/05/20 06:35 Legionella Source Cancelled 01/05/20 06:35 Legionella Culture Cancelled 01/05/20 06:35 L. pneumophila DFA Cancelled 01/05/20 06:35 Urine Legionella Ag SEE NOTE 01/05/20 20:26 M. pneumoniae (PCR) Not Detected (NotDetected) 01/04/20 17:00 Parainfluenza 1 (PCR) Not Detected (NotDetected) 01/04/20 17:00 Parainfluenza 2 (PCR) Not Detected (NotDetected) 01/04/20 17:00 Parainfluenza 3 (PCR) Not Detected (NotDetected) 01/04/20 17:00 Parainfluenza 4 (PCR) Not Detected (NotDetected) 01/04/20 17:00 RSV (PCR) Not Detected (NotDetected) 01/04/20 17:00 Entero/Rhino (PCR) Not Detected (NotDetected) 01/04/20 17:00 SARS-CoV-2 RNA (RT-PCR) Cancelled 01/04/20 17:00 Resident Activity Tracking Resident Involvement: Resident Care Provided Care Provided: Adult Hospital Medicine
[2020-01-19] MEDS: DIVALPROEX SODIUM SPRINKLE 125 MG CAP PO SCH ×3 (08:06→20:50)
[2020-01-19] MEDS: LANSOPRAZOLE 15 MG SOLTAB PO SCH (08:06)
[2020-01-19] MEDS: VENLAFAXINE HCL 37.5 MG TAB PO SCH ×2 (08:06→20:50)
[2020-01-19] MEDS: ASPIRIN 81 MG CHEW PO SCH (08:12)
[2020-01-19] MEDS: LORazepam 1 MG/2 ML VIAL IV PRN ×2 (08:12→20:55)
[2020-01-19] MEDS: INSULIN GLARGINE SOLOSTAR 100 UNITS/ML 3 ML PEN SC SCH (08:19)
[2020-01-19] MEDS ORDERED: INSULIN GLARGINE SOLOSTAR 100 UNITS/ML 3 ML PEN SC ONE (09:00)
--- NOTE | 2020-01-19 09:05 | Gastroenterology Progress Note ---
Date of Service January 19, 2020 Assessment & Plan (1) Acute respiratory failure with hypoxia: (2) Stroke: Pt is a 69 y/o male w hx of dementia, schizoaffective disorder, EPS, CVA, currently admitted for sepsis, acute respiratory failure ? related to aspiration pneumonia s/p tracheostomy placement 01/14. GI asked to evaluate pt for PEG placement to provide nutrition. At baseline pt was on puree, unable to feed self. Currently has NGT feeding. Brother (Octaviano) makes medical decisions for pt and would like to proceed with life sustaining interventions including PEG placement for feeding. Pt code status: Conditional. - NGT feed held overnight, he is NPO. Will proceed with PEG placement in OR today by Dr. Campoverde. Consent for procedure to be obtained from brother Octaviano Admission and Anticipated Discharge Date Admission Date: January 04, 2020 Supervising Physician Co-Signing Physician Notes I performed a history and physical examination of the patient today, including specifically on physical exam - soft abdomen. I have discussed the patient's management with the advanced practitioner. Please refer to the nurse practitioner's note for the documented findings and plan of care. Spoke to the brother and obtained consent. Subjective Pt's eyes open but not tracking or following commands, non verbal Review of Systems Review of Systems: Unobtainable due to cognitive status Physical Exam Constitutional: WD/WN, vitals as above + thin, well groomed and comfortable Eyes: PERRL, conjunctivae normal, anicteric sclerae ENMT: external ear and nose normal, oropharynx normal NGT in place Respiratory: On Trach collar; coarse lung sounds bilaterally Cardiovascular: RRR, no murmur, no edema Gastrointestinal (Abdomen): normal bowel sounds, soft, nontender, no hepatosplenomegaly Skin: no rashes, warm and dry no jaundice Psychiatric: Orientation: alert non verbal, not following commands Lymphatic: no lymphedema Results & Data ([facility]) Vital Signs (Past 12 Hours) Vital Signs Temp Pulse Pulse Resp BP Pulse Ox 01/19/20 07:12 91 H 20 96 01/19/20 07:00 88 01/19/20 04:17 88 146/87 H 94 01/19/20 04:00 36.8 C 85 93 01/19/20 03:52 91 H 143/106 H 95 01/19/20 03:00 89 95 01/19/20 02:52 89 146/85 H 95 01/19/20 02:00 77 95 01/19/20 01:52 76 95 01/19/20 01:51 71 130/80 92 01/19/20 01:00 93 H 95 01/19/20 00:51 91 H 143/95 H 94 01/19/20 00:00 89 96 01/18/20 23:57 37 C 91 H 135/92 95 01/18/20 23:51 91 H 145/101 H 93 01/18/20 23:00 87 97 01/18/20 22:51 85 145/91 H 97 01/18/20 22:00 75 98 01/18/20 21:51 77 136/82 96
--- NOTE | 2020-01-19 11:16 | Anesthesiology Consultation ---
Date of Service January 19, 2020 Assessment & Plan ASA ASA4 Proposed Anesthesia Anesthesia Type: General Risk / Benefits Reviewed With: PT / POA / Parent / Guardian, Accepts Plan and Informed Consent Obtained History Surgery Operation Date: 01/19/20 07:00 Proposed Procedures p Esophagogastroduodenoscopy with - Sapphire Campoverde MD s PEG Tube Placement - Sapphire Campoverde MD Height/Weight Height: 5 ft 8 in Weight: 66.5 kg Allergies Allergy/AdvReac Type Severity Reaction Status Date / Time No Known Allergies Allergy Unverified 11/26/18 13:11 Medications Home Medications Medication Instructions Recorded Confirmed Last Taken acetaminophen 650 mg PO Q8H PRN MDD 3G 11/26/18 01/04/20 Unknown allopurinol 200 mg PO QAM 11/26/18 01/04/20 11/26/18 bisacodyl [Dulcolax (bisacodyl)] 10 mg ME DAILY PRN 11/26/18 01/04/20 Unknown calcium carbonate-vitamin D3 1 tab PO QA 11/26/18 01/04/20 11/26/18 [Calcium 500 + D] divalproex 250 mg PO TID 11/26/18 01/04/20 01/04/20 16:00 gabapentin 600 mg PO TID 11/26/18 01/04/20 01/04/20 18:00 haloperidol decanoate [Haldol 25 mg IM MONTHLY 11/26/18 01/06/20 12/19/19 Decanoate] hydrocodone-acetaminophen 1 tab PO Q6H 11/26/18 01/04/20 11/26/18 06:00 insulin glargine [Lantus Solostar 10 unit SUBCUT [facility] 11/26/18 01/04/20 01/04/20 09:00 U-100 Insulin] levetiracetam [Keppra] 750 mg PO BID 11/26/18 01/04/20 01/04/20 09:00 lidocaine 1 applic TOPICAL [facility] 11/26/18 01/04/20 11/26/18 omeprazole 20 mg PO QA 11/26/18 01/04/20 01/04/20 05:30 quetiapine [Seroquel] 100 mg PO BID 11/26/18 01/04/20 01/03/20 21:00 sennosides-docusate sodium 2 tab PO QAM 11/26/18 01/04/20 11/26/18 [Senna-S] simvastatin [Zocor] 10 mg PO HS 11/26/18 01/04/20 11/25/18 amoxicillin-pot clavulanate 1 tab PO BID 01/04/20 01/04/20 01/04/20 12:00 cholecalciferol (vitamin D3) 125 mcg PO DAILY 01/04/20 01/04/20 01/04/20 08:00 fentanyl 1 patch TRANSDERMAL Q72H 01/04/20 01/04/20 01/03/20 13:28 haloperidol lactate 2 mg PO BID 01/04/20 01/04/20 01/04/20 09:00 loperamide 2 mg PO Q8H PRN 01/04/20 01/04/20 Unknown meloxicam 15 mg PO QAM 01/04/20 01/04/20 01/04/20 09:00 venlafaxine 75 mg PO HS 01/04/20 01/04/20 01/03/20 20:00 venlafaxine 150 mg PO QAM 01/04/20 01/04/20 01/04/20 08:00 vitamin B complex-folic acid 1 cap PO QAM 01/04/20 01/04/20 Unknown Active Medications Generic Name Dose Route Start Last Admin Trade Name Freq PRN Reason Stop Dose Admin Albuterol 3 ml 01/05/20 07:00 01/19/20 07:06 Duoneb NEB 02/04/20 06:59 3 ml QIDR OFE Administration Aspirin 81 mg 01/07/20 10:00 01/19/20 08:12 Aspirin Chew PO 02/06/20 09:59 81 mg DAILY OFE Administration Dextrose 25 - 50 ml 01/04/20 20:14 01/17/20 21:01 Dextrose 50% IV 02/03/20 20:13 25 ml UD PRN Administration Hypoglycemia Protocol Protocol Divalproex Sodium 500 mg 01/14/20 09:00 01/19/20 08:06 Depakote Sprinkle PO 02/13/20 08:59 500 mg TID OFE Administration Enoxaparin Sodium 40 mg 01/07/20 14:00 01/18/20 16:57 Lovenox SQ 02/06/20 13:59 40 mg DAILY@1400 OFE Administration Enteral Nutritional Formula 1,000 ml 01/06/20 11:50 01/18/20 12:43 Impact 1.0 Rohit NG 02/05/20 11:49 1,000 ml UD PRN Administration TUBE FEEDS Protocol Fentanyl 25 mcg 01/18/20 11:00 01/18/20 12:33 Duragesic TD 02/01/20 10:59 25 mcg Q72H OFE Administration Lorazepam 1 mg in 2 mls @ 2 mls/min 01/13/20 15:22 01/19/20 08:12 Ativan IV 02/12/20 15:21 2 mls/min Q4H PRN Administration Sedation Ceftolozane/Tazobactam 3,000 122.8 mls @ 111.4 mls/hr 01/14/20 09:00 01/19/20 09:15 mg/ Dextrose IV 01/23/20 23:59 Infused Q8H OFE Infusion Caspofungin 50 mg/ Sodium 260 mls @ 250 mls/hr 01/18/20 19:00 01/18/20 21:14 Chloride IV 01/25/20 18:59 Infused Q24H OFE Infusion Protocol Insulin Aspart 0 units 01/04/20 20:45 01/19/20 08:05 Novolog Flexpen SC 02/03/20 20:44 Not Given Q4 OFE Protocol Insulin Glargine 10 units 01/18/20 09:00 01/19/20 08:19 Lantus Solostar Pen SC 02/17/20 08:59 5 units QAM OFE Administration Lansoprazole 15 mg 01/13/20 09:00 01/19/20 08:06 Prevacid PO 02/12/20 08:59 15 mg QAM OFE Administration Levetiracetam 500 mg 01/18/20 21:00 01/19/20 08:07 Keppra PO 02/17/20 20:59 500 mg Q12H OFE Administration Miscellaneous 1 ea 01/18/20 16:00 01/19/20 08:07 Fentanyl Patch Check Placement N/A 02/17/20 15:59 1 ea QS OFE Administration Sterile Water 50 ea 01/19/20 11:00 01/19/20 10:57 Tube Feeding Water Flush GT 02/18/20 10:59 Not Given Q8H OFE Venlafaxine HCl 37.5 mg 01/18/20 21:00 01/19/20 08:06 Effexor PO 02/17/20 20:59 37.5 mg BID OFE Administration Past Medical History Medical History Alzheimer disease Chronic gout Chronic prescription opiate use Dementia (Chronic) Diabetes (Chronic) Gastrointestinal hemorrhage GERD (gastroesophageal reflux disease) (Chronic) Goals of care, counseling/discussion Hypertension (Acute) Muscle weakness Peripheral vascular disease Schizoaffective disorder, chronic condition (Chronic) Seizure disorder Stroke (Resolved) Urinary tract infection Exercise / Class Metabolic Activity II 4-5 Yardwork/Stairs/Walk up hill Past Anesthesia History No Hx of Anesthesia Complications and No Family Hx of Anesthesia Complications History of PONV No Hx of PONV and No Hx of Motion Sickness Social History Smoking Status: Unknown if ever smoked Review of Systems denies fever/cough/ colds/ chest pain/ SOB/ ROSITA Constitutional: no fever and no chills Respiratory: no cough and no dyspnea denies ROSITA Cardiovascular: no chest pain and no dyspnea on exertion Physical Exam Vital Signs Last Vital Signs Temp 37.3 C 01/19/20 07:52 Pulse 80 01/19/20 09:52 Resp 20 01/19/20 07:12 BP 118/83 01/19/20 09:52 Pulse Ox 97 01/19/20 09:52 Constitutional + altered mental status and + mechanically ventilated ENMT Mouth: no dentition abnormality Thyromental Distance: > or= 3.5 Finger Breadths Mallampati Class: Other (unable to assess. pt is trached) Neck + tracheostomy present Respiratory normal respiratory effort; no respiratory distress Auscultation: lungs clear to auscultation bilaterally Cardiovascular Rate/Rhythm: regular rate and regular rhythm Neurologic moves all extremities Psychiatric Orientation: alert and oriented x 3 Testing Laboratory Results 01/19/20 04:00 01/19/20 04:00 PT 11.2 Seconds (9.0-12.0) 01/04/20 16:51 INR 1.1 (0.9-1.1) 01/04/20 16:51 APTT 26.2 Seconds (21.0-31.0) 01/04/20 16:51 Hemoglobin A1c 6.6 % (4.5-5.6) H 01/05/20 06:35 Urine Color [place] 01/04/20 17:02 Urine Appearance Cloudy (Clear) A 01/04/20 17:02 Urine pH 5.0 (4.5-7.5) 01/04/20 17:02 Ur Specific Soph[place] 1.038 (1.000-1.030) H 01/04/20 17:02 Urine Protein 2+ (Negative) H 01/04/20 17:02 Urine Glucose (UA) Negative (Negative) 01/04/20 17:02 Urine Ketones Trace (Negative) H 01/04/20 17:02 Urine Nitrite Positive (Negative) A 01/04/20 17:02 Ur Leukocyte Esterase 1+ (Negative) H 01/04/20 17:02 Urine WBC (Auto) 5-10 /hpf (0-5) H 01/04/20 17:02 Urine RBC (Auto) >30 /hpf (0-4) H 01/04/20 17:02 U Hyaline Cast (Auto) 1-5 /lpf (0-5) 01/04/20 17:02 U Epithel Cells (Auto) >30 /lpf (0-5) H 01/04/20 17:02 Urine Bacteria (Auto) 2+ (Negative) H 01/04/20 17:02 01/18/20 Unknown Urine Culture - Preliminary Urine,Indwelling Cath No growth - Less than 1,000 colonies/mL, Final report to follow. 01/17/20 16:00 Gram Stain - Final Sputum,Trach Sputum Culture - Final Klebsiella pneumoniae ESBL 01/11/20 13:35 Gram Stain - Final Sputum,Vent Suction Sputum Culture - Final Klebsiella pneumoniae ESBL 01/17/20 12:15 Aerobic Blood Culture - Preliminary Blood No growth in Aerobic bottle after 24 hours. Anaerobic Blood Culture - Preliminary No growth in Anaerobic bottle after 24 hours. 01/17/20 12:22 Aerobic Blood Culture - Preliminary Blood No growth in Aerobic bottle after 24 hours. Anaerobic Blood Culture - Preliminary No growth in Anaerobic bottle after 24 hours. 01/18/20 10:20 Fungal Smear - Final Blood 01/05/20 12:50 Fungal Smear - Final Bronch Wash,Right Middle Lobe Fungal Culture - Preliminary Sherry glabrata complex Yeast- ident to follow 01/05/20 12:50 Acid Fast Bacilli Smear - Final Bronch Wash,Right Middle Lobe Acid Fast Bacilli Culture - Preliminary No Acid-Fast Bacilli Isolated - Report 2, Additional Report to Follow. 01/05/20 16:22 Aerobic Blood Culture - Final Blood No growth in Aerobic bottle after 5 days. Anaerobic Blood Culture - Final No growth in Anaerobic bottle after 5 days. 01/05/20 16:17 Aerobic Blood Culture - Final Blood No growth in Aerobic bottle after 5 days. Anaerobic Blood Culture - Final No growth in Anaerobic bottle after 5 days. 01/04/20 16:59 Aerobic Blood Culture - Final Blood Escherichia coli Anaerobic Blood Culture - Final No growth in Anaerobic bottle after 5 days. 01/04/20 16:51 Aerobic Blood Culture - Final Blood No growth in Aerobic bottle after 5 days. Anaerobic Blood Culture - Final No growth in Anaerobic bottle after 5 days. 01/05/20 12:50 Gram Stain - Final Bronch Wash,Right Middle Lobe Bronchoalveolar Lavage Culture - Final Yeast not Sherry albicans/dub 01/04/20 22:20 MRSA Surveillance Culture - Final Nasal No Methicillin Resistant Staph Aureus isolated. ---Surveillance culture only--- 01/04/20 17:02 Urine Culture - Final Urine,Straight Cath Escherichia coli 01/19/20 01/19/20 08:02 00:08 POC Glucose 136 H 166 H
--- NOTE | 2020-01-19 13:01 | GI REPORT ---
Patient Name: Fede Hinojosa Procedure Date: 01/19/2020 11:51 AM Date of : 1950 Admit Type: Inpatient Age: 69 Gender: Male Attending MD: Sapphire Campoverde MD Procedure: Upper GI endoscopy Providers: Sapphire Campoverde MD Referring MD: [facility], Galilea Leonard Md Indications: Place PEG due to impaired swallowing, patient is unable to eat due to stroke (CVA), patient requires ventilator support Medicines: Propofol per Anesthesia, already on ABx. Complications: No immediate complications. Estimated Blood Loss: Estimated blood loss: none. Procedure: Pre-Anesthesia Assessment: - Prior to the procedure, a History and Physical was performed, and patient medications, allergies and sensitivities were reviewed. The patient's tolerance of previous anesthesia was reviewed. - The patient is unable to give consent secondary to the patient's altered mental status. The alternatives, risks and benefits of the procedure were discussed at length with the patient's brother. The patient's proxy verbalized understanding of the risks as well as the alternatives and wished to proceed with the procedure. - Patient identification and proposed procedure were verified prior to the procedure by the physician and the nurse. The procedure was verified in the procedure room. - Pre-procedure physical examination revealed no contraindications to sedation. After obtaining informed consent, the endoscope was passed under direct vision. Throughout the procedure, the patient's blood pressure, pulse, and oxygen saturations were monitored continuously. The Endoscope was introduced through the mouth, and advanced to the second part of duodenum. The upper GI endoscopy was accomplished without difficulty. The patient tolerated the procedure well. Findings: The examined esophagus was normal. The entire examined stomach was normal. The patient was placed in the supine position for PEG placement. The stomach was insufflated to appose gastric and abdominal alejandre. A site was located in the body of the stomach with excellent transillumination and manual external pressure for placement. The abdominal wall was marked and prepped in a sterile manner. The area was anesthetized with 2 mL of 1% lidocaine. The trocar needle was introduced through the abdominal wall and into the stomach under direct endoscopic view. A snare was introduced through the endoscope and opened in the gastric lumen. The guide wire was passed through the trocar and into the open snare. The snare was closed around the guide wire. The endoscope and snare were removed, pulling the wire out through the mouth. A skin incision was made at the site of needle insertion. The externally removable 20 Fr Venkatesh-Cook gastrostomy tube was lubricated. The G-tube was tied to the guide wire and pulled through the mouth and into the stomach. The trocar needle was removed, and the gastrostomy tube was pulled out from the stomach through the skin. The external bumper was attached to the gastrostomy tube, and the tube was cut to remove the guide wire. The final position of the gastrostomy tube was confirmed by relook endoscopy, and skin marking noted to be 3 cm at the external bumper. The final tension and compression of the abdominal wall by the PEG tube and external bumper were checked and revealed that the bumper was moderately tight and mildly deforming the skin. The feeding tube was capped, and the tube site cleaned and dressed. The duodenal bulb and second portion of the duodenum were normal. Impression: - Normal esophagus. - Normal stomach. An externally removable PEG placement was successfully completed. - Normal duodenal bulb and second portion of the duodenum. Recommendation: - Please follow the post-PEG recommendations including: Nutrition consult for formula and volume, dry dressing only, NPO x4 hrs then water today, may use PEG today for meds and water and may use PEG tomorrow for feedings. Sapphire Campoverde MD 01/19/2020 1:01:19 PM This report has been signed electronically. Note Initiated On: 01/19/2020 11:51 AM Number of Addenda: 0 I attest to the content of the Intraoperative Record and orders documented therein, exceptions below {[id number]}
--- NOTE | 2020-01-19 13:28 | Anesthesiology Progress Note ---
Date of Service January 19, 2020 Anesthesia Post Procedure Vital Signs Vital Signs: Temp Pulse Pulse Pulse Resp BP BP 01/19/20 12:45 62 22 96/53 L 01/19/20 11:56 73 18 110/70 01/19/20 11:37 91 H 20 01/19/20 09:52 80 118/83 01/19/20 08:52 77 112/79 01/19/20 08:00 01/19/20 07:52 37.3 C 92 H 133/79 01/19/20 07:12 91 H 20 01/19/20 07:00 88 01/19/20 06:52 88 125/81 01/19/20 04:17 88 146/87 H 01/19/20 04:00 36.8 C 85 01/19/20 03:52 91 H 143/106 H 01/19/20 03:00 89 01/19/20 02:52 89 146/85 H 01/19/20 02:00 77 01/19/20 01:52 76 01/19/20 01:51 71 130/80 01/19/20 01:00 93 H 01/19/20 00:51 91 H 143/95 H 01/19/20 00:00 89 01/18/20 23:57 37 C 91 H 135/92 01/18/20 23:51 91 H 145/101 H 01/18/20 23:00 87 01/18/20 22:51 85 145/91 H 01/18/20 22:00 75 01/18/20 21:51 77 136/82 01/18/20 21:00 91 H 01/18/20 20:52 90 142/107 H 01/18/20 20:17 88 151/91 H 01/18/20 20:00 36.8 C 91 H 01/18/20 19:51 93 H 163/110 H 01/18/20 19:35 74 16 01/18/20 19:00 87 01/18/20 18:51 87 144/99 H 01/18/20 18:00 87 01/18/20 17:51 84 150/96 H 01/18/20 17:00 89 01/18/20 16:51 88 147/101 H 01/18/20 16:00 90 01/18/20 15:51 88 152/102 H 01/18/20 15:23 74 16 01/18/20 15:00 78 01/18/20 14:51 76 156/105 H 01/18/20 14:00 37.5 C 87 01/18/20 13:51 37.5 C 88 155/99 H Pulse Ox Pulse Ox 01/19/20 12:45 100 01/19/20 11:56 98 01/19/20 11:37 99 01/19/20 09:52 97 01/19/20 08:52 95 01/19/20 08:00 99 01/19/20 07:52 93 01/19/20 07:12 96 01/19/20 07:00 01/19/20 06:52 95 01/19/20 04:17 94 01/19/20 04:00 93 01/19/20 03:52 95 01/19/20 03:00 95 01/19/20 02:52 95 01/19/20 02:00 95 01/19/20 01:52 95 01/19/20 01:51 92 01/19/20 01:00 95 01/19/20 00:51 94 01/19/20 00:00 96 01/18/20 23:57 95 01/18/20 23:51 93 01/18/20 23:00 97 01/18/20 22:51 97 01/18/20 22:00 98 01/18/20 21:51 96 01/18/20 21:00 95 01/18/20 20:52 94 01/18/20 20:17 95 01/18/20 20:00 95 01/18/20 19:51 96 01/18/20 19:35 97 01/18/20 19:00 96 01/18/20 18:51 95 01/18/20 18:00 97 01/18/20 17:51 98 01/18/20 17:00 97 01/18/20 16:51 97 01/18/20 16:00 95 01/18/20 15:51 98 01/18/20 15:23 97 01/18/20 15:00 97 01/18/20 14:51 100 01/18/20 14:00 98 01/18/20 13:51 98 Transfer of Care Handoff Completed per policy Notes Mental Status: alert / awake / arousable and participated in evaluation Patient Amnestic to Procedure: Yes Nausea / Vomiting: adequately controlled Pain: adequately controlled Airway Patency, RR, SpO2: stable & adequate BP & HR: stable & adequate Hydration State: stable & adequate Anesthetic Complications: no major complications apparent and Pt Satisfied with anesthetic care
[2020-01-19] MEDS: ENOXAPARIN INJ 40 MG/0.4 ML SYR SQ SCH (14:16)
--- NOTE | 2020-01-19 15:13 | Pharmacy Report ---
Pharmacy Glycemic Short Note 2 - Date of Service January 19, 2020 - Glycemic Short BSG Results (Last 24 hours): 01/18/20 01/18/20 01/19/20 16:52 20:06 00:08 Glucose POC Glucose 121 H 141 H 166 H 01/19/20 01/19/20 01/19/20 04:00 08:02 11:24 Glucose 91 POC Glucose 136 H 127 H OUTPATIENT ANTIDIABETIC REGIMEN: * Lantus 10 units SQ daily * A1c = 6.6% 01/05/20 ASSESSMENT: 01/18 * BSGs well controlled over last 24 hrs * Fasting BSG 91-136 this AM with 10 units Lantus on board, patient's tube feeds on hold since midnight for PEG placement today * Plan to give 50% usual Lantus dose this AM due to uncertain duration of NPO for procedure, will resume usual dose once tube feeds resume * Possible plan to convert patient to bolus or cyclic tube feeds in near future. 01/17 * Type 2 diabetic admitted to ICU acute resp failure, sepsis (UTI and PNA), and CORY * Patient remains in ICU at this time, still dependent of ventilator however now has trach in place * Continuous tube feeds tolerated and running at goal * Patient did have one episode of hypoglycemia last evening, likely secondary to excess prandial insulin given to cover tube feeds. As a result both Novolog and Lantus doses lessened last evening. Since these changes BSGs have mostly been in the 170s range. * Plan to resume out-pt Lantus dose with slightly higher Novolog doses today PLAN FOR INPATIENT GLYCEMIC CONTROL: * Basal insulin - reduced dose * Lantus 5 units SQ Q x 1 this AM, then resume 10 units SQ Q AM * Bolus insulin - no change * NovoLog per scale Q 4hrs * Goal Range: Low 130 mg/dL - High 160 mg/dL * Correction Factor: 30 mg/dL/unit * Nutritional / Prandial insulin per carb ratio of 1 unit per 12 grams CHO consumed PLAN FOR DISCHARGE: * to be determined - will ultimately depend upon method of feeding on discharge
--- NOTE | 2020-01-19 17:16 | Hospitalist Progress Note ---
Date of Service January 19, 2020 Assessment & Plan (1) Sepsis associated hypotension: gram negatives in blood and urine growing quinalone resistant E Coli resolved now ESBL Klebsiella in sputum, antibiotics changed to Ceftolazone tazobactam after sputum grew ESBL Klebsiella no fever but WBC up to 17k end date for Ceftolazone is 01/22 PICC pulled for fever has peripheral IV, should be sufficient for the Ceftolazone but will need US guided line for Caspofungin (2) Acute respiratory failure with hypoxia: Pt intubated and ventilated, managed by icu team Poor response attempted weaning trials concern for persistent ventilation required. weaning trial of 01/13 resulted inseizure like activity Concerns for recurrent aspiration and protecting airway Discussion with family and the critical care attending on sunday 01/14 with decision for DNR tracheostomy placed 01/14 now with tracheostomy, tolerating blow by oxygen on 01/18, essentially off ventilator support continue to monitor (3) Pneumonia: Aspiration vs. Health-care acquired (in correction setting). ESBL klebsiella grew, now on ceftolzone/tazobactam WBC up to 17k today now growing Sherry glabrata treat with Caspofungin (4) Urinary tract infection: treated (5) Acute kidney injury: Suspected prerenal due to acute infection, dehydration (poor oral intake) and meloxicam use. Resolved Continue holding meloxicam. Patient is on tube feeds resolved hypernatremia. (6) Hypernatremia: Increased on admission due to NSS given as boluses in ER and to some extent LR maintenance. Unlikely DI given no polyuria noted. Resolved (7) Altered mental state: metabolic encephalopathy CT head negative for acute intracranial abnormality EEG unremarkable (8) Schizoaffective disorder, chronic condition: previously taking both Seroquel 100 mg twice daily (although notably on Seroquel 150mg TID in 2014) and haloperidol 2mg PO BID and 25 mg IM monthly. Consulted psychiatry did not feel that delirium is related to his psychotropic medications. (9) Psychosis: He has remained ventilated with support now via tracheostomy which was placed on 01/14. Continue to be unable to determine delusion or hallucinations given dementia and current cognitive state. (10) Dementia: Noted history of stroke with old left cerebral infarct. Although Alz heimer's noted on prior problem list Pt has been non functional at SNF for some time and has contracture of his right had that is pre hospital (11) Coronary artery disease: Unclear history of this. No prior stents or CABG Echocardiogram performed 01/03 shows normal EF, severe aortic stenosis. (12) Diabetes: HbA1C 6.6 Continue Novolog correction factor for now, plus scheduled lantus given reliable calorie intake (13) Hyperlipidemia: Hold simvastatin while NPO (14) GERD (gastroesophageal reflux disease): Now on Pepcid via his NG tube (15) Chronic prescription opiate use: Fentanyl patch removed on admission On chronic opiates for right foot and right hand pain.( hand contractures) Also taking Meloxicam 15mg QAM and [place] Q6H OFE as per prior documentation back on Fentanyl patch, change every 72 hours (16) Peripheral vascular disease: Noted history of this. Not on antiplatelets are noted above. Holding simvastatin while NPO and lethargic. (17) Chronic gout: previously on allopurinol (18) Seizure disorder: Valproic acid and Keppra levels ordered (although notably these have previously been normal or low). Keppra with neurology oversight after apparent seizure during weaning trial 01/13 pevious EEG - non-seizure activity noted despite head tremor during EEG. Very mild generalized slowing represents a very mild encephalopathy. reviewed correction records, was prescribed the Depakote for mood disorder (19) Muscle weakness: Notable history for this with patient effectively bed-bound (20) Extrapyramidal and movement disorder: Cogwheeling rigidity R > L. Suspect from prior stroke in setting of chronic anti-psychotic use. Consult neurology -is following and adjusting antiepileptic medications (21) Depression: previously on venlafaxine (22) DVT prophylaxis: lovenox daily Patient's brother who is only next of kin we can identify. The borther expressed during family meeting 01/14, that there are strong congregation overtones regarding sanctity of life and living and as the next of kin, Octaviano, feels he cannot determine end of life, he is comfortable making the pt DNR at this time and did consent to a tracheostomy and PICC line now has PEG in placed for hydration and nutrition and medications will then need placement, may require LTACH, doubt local SNF could accommodate his current needs Admission and Anticipated Discharge Date Admission Date: January 04, 2020 Subjective EGD placed WBC going down, no fever PICC line pulled d/w ICU, treating Sherry with Caspofungin and Klebsiella with Ceftolozane breathing stable on tracheostomy blow by CM looking into SNF/LTACH Review of Systems Review of Systems: Unobtainable due to cognitive status and Unobtainable due to reduced consciousness Physical Exam Constitutional: + ill appearing, comfortable and + lethargic Eyes: PERRL, conjunctivae normal, anicteric sclerae ENMT: external ear and nose normal, oropharynx normal Neck: trachea midline, no thyromegaly (tracheostomy midline) Respiratory: normal respiratory effort, lungs clear to auscultation (decreased breath sounds bases) Cardiovascular: RRR, no murmur, no edema Gastrointestinal (Abdomen): normal bowel sounds, soft, nontender, no hepatosplenomegaly Musculoskeletal: Head/Neck/Chest: normocephalic, head atraumatic and neck supple Extremities: + abnormal strength (generalized weakness, moving extremities) Skin: no rashes, warm and dry Neurologic: CN's II-XI intact bilaterally, deep tendon reflexes 2+ bilaterally, moves all extremities and + obtunded Psychiatric: Orientation: + not alert and + not oriented x 3 Lymphatic: no cervical or axillary lymphadenopathy Results & Data Results & Data ([facility]) Vital Signs (Past 12 Hours) Vital Signs Temp Pulse Pulse Pulse Resp BP BP 01/19/20 16:00 74 01/19/20 15:52 37.4 C 73 117/75 01/19/20 15:41 77 01/19/20 15:40 77 18 01/19/20 15:00 69 01/19/20 14:52 70 112/69 01/19/20 13:22 37.4 C 70 18 106/72 01/19/20 12:51 37.4 C 66 86/59 L 01/19/20 12:49 67 96/53 L 01/19/20 12:46 66 107/73 01/19/20 12:45 62 22 96/53 L 01/19/20 12:43 75 88/66 L 01/19/20 12:40 69 107/71 01/19/20 12:36 69 108/69 01/19/20 12:31 77 114/68 01/19/20 11:56 73 18 110/70 01/19/20 11:37 91 H 20 01/19/20 10:51 77 18 111/77 07/21/20 09:52 80 118/83 01/19/20 08:52 77 112/79 01/19/20 08:00 01/19/20 07:52 37.3 C 92 H 133/79 01/19/20 07:12 91 H 20 01/19/20 07:00 88 01/19/20 06:52 88 125/81 Pulse Ox Pulse Ox 01/19/20 16:00 97 01/19/20 15:52 98 01/19/20 15:41 100 01/19/20 15:40 100 01/19/20 15:00 01/19/20 14:52 99 01/19/20 13:22 97 01/19/20 12:51 100 01/19/20 12:49 01/19/20 12:46 100 01/19/20 12:45 100 01/19/20 12:43 100 01/19/20 12:40 100 01/19/20 12:36 100 01/19/20 12:31 99 01/19/20 11:56 98 01/19/20 11:37 99 01/19/20 10:51 98 01/19/20 09:52 97 01/19/20 08:52 95 01/19/20 08:00 99 01/19/20 07:52 93 01/19/20 07:12 96 01/19/20 07:00 01/19/20 06:52 95 Laboratory Results Laboratory Results - last 24 hr 01/18/20 01/19/20 01/19/20 20:06 00:08 04:00 WBC RBC Hgb Hct MCV MCH MCHC RDW Std Deviation RDW Coeff of Kasey Plt Count MPV Immature Gran % (Auto) Neut % (Auto) Lymph % (Auto) Beaver % (Auto) Eos % (Auto) Baso % (Auto) Neut # (Auto) Lymph # (Auto) Beaver # (Auto) Eos # (Auto) Baso # (Auto) Immature Gran # (Auto) Sodium 133 L Potassium 4.0 Chloride 97 L Carbon Dioxide 29 Anion Gap 7.0 BUN 22 H Creatinine 0.74 Est Cr Clr Drug Dosing 86.8 Est GFR ( Amer) 107.6 Est GFR (Non-Af Amer) 92.8 BUN/Creatinine Ratio 29.4 H Glucose 91 POC Glucose 141 H 166 H Calcium 8.9 Phosphorus 2.9 Magnesium 1.9 Total Bilirubin 0.5 Direct Bilirubin 0.1 AST 22 ALT 36 Alkaline Phosphatase 76 Total Protein 6.8 Albumin 2.1 L 01/19/20 01/19/20 01/19/20 04:00 08:02 11:24 WBC 17.36 H RBC 3.29 L Hgb 10.3 L Hct 30.4 L MCV 92.4 MCH 31.3 MCHC 33.9 RDW Std Deviation 45.1 RDW Coeff of Kasey 13.4 Plt Count 381 MPV 8.8 Immature Gran % (Auto) 1.0 Neut % (Auto) 81.1 Lymph % (Auto) 9.2 Beaver % (Auto) 8.2 Eos % (Auto) 0.3 Baso % (Auto) 0.2 Neut # (Auto) 14.09 H Lymph # (Auto) 1.60 Beaver # (Auto) 1.42 H Eos # (Auto) 0.05 Baso # (Auto) 0.03 Immature Gran # (Auto) 0.17 H Sodium Potassium Chloride Carbon Dioxide Anion Gap BUN Creatinine Est Cr Clr Drug Dosing Est GFR ( Amer) Est GFR (Non-Af Amer) BUN/Creatinine Ratio Glucose POC Glucose 136 H 127 H Calcium Phosphorus Magnesium Total Bilirubin Direct Bilirubin AST ALT Alkaline Phosphatase Total Protein Albumin 01/19/20 15:48 WBC RBC Hgb Hct MCV MCH MCHC RDW Std Deviation RDW Coeff of Kasey Plt Count MPV Immature Gran % (Auto) Neut % (Auto) Lymph % (Auto) Beaver % (Auto) Eos % (Auto) Baso % (Auto) Neut # (Auto) Lymph # (Auto) Beaver # (Auto) Eos # (Auto) Baso # (Auto) Immature Gran # (Auto) Sodium Potassium Chloride Carbon Dioxide Anion Gap BUN Creatinine Est Cr Clr Drug Dosing Est GFR ( Amer) Est GFR (Non-Af Amer) BUN/Creatinine Ratio Glucose POC Glucose 100 H Calcium Phosphorus Magnesium Total Bilirubin Direct Bilirubin AST ALT Alkaline Phosphatase Total Protein Albumin Medications Administered Current Inpatient Medications Albuterol (Duoneb) 3 ml NEB QIDR OFE Stop: 02/04/20 06:59 Last Admin: 01/19/20 15:36 Dose: 3 ml Documented by: Aspirin (Aspirin Chew) 81 mg PO DAILY OFE Stop: 02/06/20 09:59 Last Admin: 01/19/20 08:12 Dose: 81 mg Documented by: Dextrose (Dextrose 50%) 25 - 50 ml IV UD PRN; Protocol PRN Reason: Hypoglycemia Protocol Stop: 02/03/20 20:13 Last Admin: 01/17/20 21:01 Dose: 25 ml Documented by: Divalproex Sodium (Depakote Sprinkle) 500 mg PO TID OFE Stop: 02/13/20 08:59 Last Admin: 01/19/20 13:38 Dose: Not Given Documented by: Enoxaparin Sodium (Lovenox) 40 mg SQ DAILY@1400 OFE Stop: 02/06/20 13:59 Last Admin: 01/19/20 14:16 Dose: 40 mg Documented by: Enteral Nutritional Formula (Impact 1.0 Rohit) 1,000 ml NG UD PRN; Protocol PRN Reason: TUBE FEEDS Stop: 02/05/20 11:49 Last Admin: 01/18/20 12:43 Dose: 1,000 ml Documented by: Fentanyl (Duragesic) 25 mcg TD Q72H OFE Stop: 02/01/20 10:59 Last Admin: 01/18/20 12:33 Dose: 25 mcg Documented by: Glucagon (Glucagen) 1 mg SQ UD PRN; Protocol PRN Reason: Hypoglycemia Protocol Stop: 02/03/20 20:13 Glucose (Dex4 Glucose) 4 - 8 tabs PO UD PRN; Protocol PRN Reason: Hypoglycemia Protocol Stop: 02/03/20 20:13 Glucose (Glucose 40%) 15 - 30 gm PO UD PRN; Protocol PRN Reason: Hypoglycemia Protocol Stop: 02/03/20 20:13 Heparin Sodium (Beef Lung) (Heparin Sod 10 Unit/Ml Flush) 5 ml FLUSH PRN PRN PRN Reason: Flush Stop: 02/14/20 17:12 Lorazepam (Ativan) 1 mg in 2 mls @ 2 mls/min IV Q4H PRN PRN Reason: Sedation Stop: 02/12/20 15:21 Last Admin: 01/19/20 08:12 Dose: 2 mls/min Documented by: Ceftolozane/Tazobactam 3,000 (mg/ Dextrose) 122.8 mls @ 111.4 mls/hr IV Q8H OFE Stop: 01/23/20 23:59 Last Infusion: 01/19/20 09:15 Dose: Infused Documented by: Caspofungin 50 mg/ Sodium (Chloride) 260 mls @ 250 mls/hr IV Q24H [facility]; Protocol Stop: 01/25/20 18:59 Last Infusion: 01/18/20 21:14 Dose: Infused Documented by: Insulin Aspart (Novolog Flexpen) 0 units SC Q4 [facility]; Protocol Stop: 02/03/20 20:44 Last Admin: 01/19/20 15:52 Dose: Not Given Documented by: Insulin Glargine (Lantus Solostar Pen) [facility]: 02/17/20 08:59 Last Admin: 01/19/20 08:19 Dose: 5 units Documented by: Lansoprazole (Prevacid) 15 mg PO QAM [facility] Stop: 02/12/20 08:59 Last Admin: 01/19/20 08:06 Dose: 15 mg Documented by: Levetiracetam (Keppra) 500 mg PO Q12H [facility] Stop: 02/17/20 20:59 Last Admin: 01/19/20 08:07 Dose: 500 mg Documented by: Miscellaneous (Carbohydrates For Hypoglycemia) 15 - 30 gm PO UD PRN PRN Reason: Hypoglycemia Protocol Stop: 02/03/20 20:13 Miscellaneous (Icu Electrolyte Replacement Protocol) 1 ea N/A UD PRN PRN Reason: for e-lyte repletion Stop: 01/22/20 06:30 Miscellaneous (Fentanyl Patch Remove & Waste) 1 ea N/A Q72H [facility] Stop: 02/20/20 10:58 Miscellaneous (Fentanyl Patch Check Placement) 1 ea N/A QS [facility] Stop: 02/17/20 15:59 Last Admin: 01/19/20 15:52 Dose: 1 ea Documented by: Miscellaneous Information (Consult Glycemic Management Pharmacy) 1 ea N/A UD PRN PRN Reason: Consult Stop: 02/16/20 08:55 Sterile Water (Tube Feeding Water Flush) 50 ea GT Q8H [facility] Stop: 02/18/20 10:59 Last Admin: 01/19/20 10:57 Dose: Not Given Documented by: Venlafaxine HCl (Effexor) 37.5 mg PO BID [facility] Stop: 02/17/20 20:59 Last Admin: 01/19/20 08:06 Dose: 37.5 mg Documented by: PG Care Time/CCT Total # of Minutes Spent Total Time Spent with Patient: Total time spent is greater than 50% in coordination of care (as documented) at patient's floor/unit and/or counseling patient: Coding Level of Care Code 95107 Subseq Hosp Care Lvl 2 Diagnoses Sepsis associated hypotension A41.9; I95.9 Acute respiratory failure with hypoxia J96.01 Pneumonia J18.9 Urinary tract infection N39.0 Acute kidney injury N17.9 Hypernatremia E87.0 Altered mental state R41.82 Schizoaffective disorder, chronic condition F25.8 Psychosis F29 Dementia F03.90 Coronary artery disease I25.10 Diabetes E11.9 Hyperlipidemia E78.5 GERD (gastroesophageal reflux disease) K21.9 Chronic prescription opiate use Z79.891 Peripheral vascular disease I73.9 Chronic gout [id number] Seizure disorder G40.909 Muscle weakness M62.81 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
[2020-01-19] MEDS: CASPOFUNGIN 50 MG in SODIUM CHLORIDE 0.9% 250 ML IV SCH (19:31)
[2020-01-20] MEDS: INSULIN ASPART 100 UNITS/ML 3 ML PEN SC SCH ×7 (00:28→23:52)
[2020-01-20] MEDS: CHECK FENTANYL PATCH PLACEMENT SCH ×4 (00:29→23:47)
[2020-01-20] MEDS: CEFTOLOZANE/TAZOBACTAM 3,000 MG in DEXTROSE 5% 100 ML IV SCH ×3 (00:29→18:12)
[2020-01-20] MEDS: TUBE FEEDING WATER FLUSH GT SCH ×3 (03:43→18:13)
[2020-01-20 05:08] LABS: BUN Creatinine Ratio 29.8 (10-20); Creatinine Clr Calc Pharmacy 82.8 ml/min; Est GFR (African American) 105.8; Est GFR (Non-African American) 91.3; Magnesium 2.2 mg/dl (1.8-2.4); Phosphorus 3.9 mg/dl (2.5-4.9); Potassium 4.2 mmol/L (3.5-5.1)
[2020-01-20 05:51] LABS: Basophils # (auto) 0.02 K/uL (0-0.2); Basophils % (auto) 0.2 %; Eosinophils # (auto) 0.01 K/uL (0-0.5); Eosinophils % (auto) 0.1 %; Hematocrit (blood only) 31.5 % (42-52); Hemoglobin 10.3 g/dL (14.0-18.0); Immature Granulocytes # (auto) 0.07 K/uL (0.00-0.02); Immature Granulocytes % (auto) 0.5 %; Lymphocytes # (auto) 1.63 K/uL (1.2-3.4); Lymphocytes % (auto) 12.3 %; Mean Corpuscular Hemoglobin 30.7 pg (25-34); Mean Corpuscular Volume 93.8 fL (80-100); Mean Platelet Volume 9.1 fL (7.4-10.4); Monocytes # (auto) 1.14 K/uL (0.11-0.59); Monocytes % (auto) 8.6 %; Neutrophils # (auto) 10.38 K/uL (1.4-6.5); Neutrophils % (auto) 78.3 %; Platelet Count 329 K/uL (130-400); RDW Coefficient of Variation 13.6 % (11.5-14.5); RDW Standard Deviation 46.2 fL (36.4-46.3); Red Blood Count 3.36 M/uL (4.7-6.1); White Blood Count 13.25 K/uL (4.8-10.8)
[2020-01-20 06:04] LABS: Mean Corpuscular Hgb Conc 32.7 g/dL (32-36)
--- NOTE | 2020-01-20 06:52 | Critical Care Progress Note ---
Date of Service January 20, 2020 Assessment & Plan (1) Acute respiratory failure with hypoxia: Reason Critically Ill: [69]-year-old male here with a PMHx significant for schizoaffective disorder, dementia, CAD, DM2, HLD, chronic opiate use, seizure disorder who presented with worsening agitation and aspiration pneumonia and who was admitted for hypotension secondary to sepsis. Neuro - Encephalopathy, Seizure Disorder CAM ICU: not applicable Sedation: none Analgesia: none Encephalomalacia - No metabolic derangements at this time to indicate cause - likely secondary to years of antipsychotic medication use/seizure disorder/worsening dementia and psychosis Seizure Disorder - EEG: no focal epileptogenic discharges visualized, mildly abnormal with very mild generalized slow activity of nonspecific nature. - CT head: chronic encephalomalacia with old left frontal lobe infarct, ex vacuo ventriculomegaly - Neuro recommendations: IV Keppra 500 BID for seizure control, Depakote 500 TID Schizoaffective disorder/Schizophrenia + Tremoring - one time haloperidol decanoate 25 mg IM, per monthly at home dose - restarting Venlafaxine per psychiatry's recommendations. - Haldol PRN for agitation Chronic Opiate use - Restarted on low dose 25 mcg fentanyl patch Cardiac - Occasionally has small runs of tachycardia that resolve. Frequent PVCs. Tachycardia likely secondary to neuroagitation, no acute concerns at this time. Respiratory Acute Hypoxic Respiratory Failure s/p trach placement - breathing well off vent, 6L O2 - will need a trach replacement on 01/21 GI - Protein malnourishment - PEG tube 01/18, plan to use PEG for bolus feeds today RENAL/LYTES - No significant electrolyte derangement. Replace lytes as needed. - No concerns at this time. ENDO - DM2 - 10u lantus daily, SSI with fluctuations of glucose HEME - Anemia - 10.5, down from 13 on admission. likely secondary to blood draws and hemodilution. ID - Fever of unknown source - > 48 hours from last fever - Trach sputum growing G- bacilli - other sputum culture growing klebsiella ESBL - 1 tube of aerobic blood cultures growing G+ cocci, most likely contaminant. Repeat blood cultures ordered this morning for confirmation. - urine culture pending - ultrasounds of upper and lower extremities negative for DVT - coverage with ceftolazone/tazobactam - plan to finish out 14 day course of antibiotics and antifungals Intra pulmonary fungal infection - cathy glabrata growing from bronch washing - caspofungin for coverage - optho exam negative for intraocular fungus growth INTEGUMENTARY - no concerns at this time. LINES/IV ACCESS - L PIV, PEG DVT PROPHYLAXIS - lovenox 40 daily Dispo: downgrade to LTAC/SNF pending approval Thank you for allowing us to be part of this patient's care. Please refer to Dr. Douglas's documentation for any further recommendations. (2) Sepsis associated hypotension: (3) Pneumonia: (4) Acute kidney injury: (5) Encephalopathy: (6) Goals of care, counseling/discussion: (7) Extrapyramidal and movement disorder: (8) Seizure disorder: (9) Dementia: (10) Chronic prescription opiate use: (11) Peripheral vascular disease: (12) Chronic gout: (13) Hypertension: (14) Diabetes: (15) Schizoaffective disorder, chronic condition: (16) Hyperlipidemia: (17) Coronary artery disease: (18) Acute encephalopathy: Admission and Anticipated Discharge Date Admission Date: January 04, 2020 Supervising Physician Co-Signing Physician Notes Dr. Leonard was resident physician during care of patient. I separately evaluated patient for jay portions of the history and the exam. I was present during the critical portion of medical decision making, and I discussed the case with the resident. I generally agree with the findings and plan. Tolerating aerosol trach collar, hopeful discharge tomorrow to long-term care facility. Subjective breathing well on trach collar. sleeping during exam. Review of Systems Review of Systems: Unobtainable due to cognitive status Physical Exam Physical Exam: Constitutional: laying curled up in bed, unkempt, non responsive to speech or pain, frequent tongue fasciculations Eyes: opens and moves eyes spontaneously, large amount of mucus coating eyelashes, not tracking finger well with command Cardiac: regular rate and rhythm with frequent PVCs, 3/6 crescendo- decrescendo murmur Pulm: tracheostomy in place CTA BL, moving good air bilaterally Abd: soft, nontender, nondistended, normal bowel sounds, no rebound or guarding : menjivar in place, no hematuria Extremities: poor peripheral pulses, cold feet Neuro: GCS 6, not responsive to commands, not responsive to pain, opens eyes spontaneously Results & Data Results & Data ([facility]) Vital Signs (Past 12 Hours) Vital Signs Temp Pulse Pulse Pulse Resp BP Pulse Ox 01/20/20 05:53 71 124/80 99 01/20/20 05:23 68 72 18 128/85 99 01/20/20 04:53 72 129/78 99 01/20/20 04:23 36.8 C 71 16 116/73 94 01/20/20 03:53 67 104/69 100 01/20/20 03:23 68 18 108/65 100 01/20/20 02:53 75 117/74 99 01/20/20 02:23 72 119/77 99 01/20/20 01:23 72 112/81 98 01/20/20 00:23 36.7 C 72 112/76 99 01/19/20 23:32 78 20 99 01/19/20 23:23 71 111/75 98 01/19/20 23:00 71 01/19/20 22:23 74 100/63 98 01/19/20 21:53 76 96/58 L 98 01/19/20 21:23 76 105/64 96 01/19/20 20:53 89 16 118/89 99 01/19/20 20:23 82 135/83 98 01/19/20 20:00 80 01/19/20 19:53 36.5 C 80 20 124/92 98 01/19/20 19:24 82 18 98 01/19/20 19:23 80 129/88 99 Laboratory Results WBC 13.25 K/uL (4.8-10.8) H 01/20/20 05:37 RBC 3.36 M/uL (4.7-6.1) L 01/20/20 05:37 Hgb 10.3 g/dL (14.0-18.0) L 01/20/20 05:37 POC Hgb 9.5 g/dl (14.0-18.0) L 01/15/20 05:05 Hct 31.5 % (42-52) L 01/20/20 05:37 POC Hct 28 % (42-52) L 01/15/20 05:05 MCV 93.8 fL (80-100) 01/20/20 05:37 MCH 30.7 pg (25-34) 01/20/20 05:37 MCHC 32.7 g/dL (32-36) 01/20/20 05:37 RDW Std Deviation 46.2 fL (36.4-46.3) 01/20/20 05:37 RDW Coeff of Kasey 13.6 % (11.5-14.5) 01/20/20 05:37 Plt Count 329 K/uL (130-400) 01/20/20 05:37 MPV 9.1 fL (7.4-10.4) 01/20/20 05:37 Immature Gran % (Auto) 0.5 % 01/20/20 05:37 Neut % (Auto) 78.3 % 01/20/20 05:37 Lymph % (Auto) 12.3 % 01/20/20 05:37 [place] % (Auto) 8.6 % 01/20/20 05:37 Eos % (Auto) 0.1 % 01/20/20 05:37 Baso % (Auto) 0.2 % 01/20/20 05:37 Neut # (Auto) 10.38 K/uL (1.4-6.5) H 01/20/20 05:37 Lymph # (Auto) 1.63 K/uL (1.2-3.4) 01/20/20 05:37 [place] # (Auto) 1.14 K/uL (0.11-0.59) H 01/20/20 05:37 Eos # (Auto) 0.01 K/uL (0-0.5) 01/20/20 05:37 Baso # (Auto) 0.02 K/uL (0-0.2) 01/20/20 05:37 Immature Gran # (Auto) 0.07 K/uL (0.00-0.02) H 01/20/20 05:37 Absolute Nucleated RBC Cancelled 01/20/20 04:18 Nucleated RBC % (auto) Cancelled 01/20/20 04:18 Neutrophils % (Manual) Cancelled 01/20/20 04:18 Band Neutrophils % Cancelled 01/20/20 04:18 Lymphocytes % (Manual) Cancelled 01/20/20 04:18 Prolymphocyte % Cancelled 01/20/20 04:18 Reactive Lymphs % (Man) Cancelled 01/20/20 04:18 Monocytes % (Manual) Cancelled 01/20/20 04:18 Eosinophils % (Manual) Cancelled 01/20/20 04:18 Basophils % (Manual) Cancelled 01/20/20 04:18 Metamyelocytes % (Man) Cancelled 01/20/20 04:18 Myelocytes % (Man) Cancelled 01/20/20 04:18 Promyelocytes % (Man) Cancelled 01/20/20 04:18 Blast Cells % (Manual) Cancelled 01/20/20 04:18 Plasma Cell % (Manual) Cancelled 01/20/20 04:18 Other Cells % Cancelled 01/20/20 04:18 Nucleated RBC % Cancelled 01/20/20 04:18 Neutrophils # (Manual) Cancelled 01/20/20 04:18 Band Neutrophils # Cancelled 01/20/20 04:18 Total Absolute Neuts Cancelled 01/20/20 04:18 Lymphocytes # (Manual) Cancelled 01/20/20 04:18 Prolymphocyte # Cancelled 01/20/20 04:18 Reactive Lymphs # Cancelled 01/20/20 04:18 Total Abs Lymphocytes Cancelled 01/20/20 04:18 Monocytes # (Manual) Cancelled 01/20/20 04:18 Eosinophils # (Manual) Cancelled 01/20/20 04:18 Basophils # (Manual) Cancelled 01/20/20 04:18 Metamyelocytes # (Man) Cancelled 01/20/20 04:18 Myelocytes # (Manual) Cancelled 01/20/20 04:18 Promyelocytes # (Man) Cancelled 01/20/20 04:18 Blast Cells # (Man) Cancelled 01/20/20 04:18 Plasma Cell # (Manual) Cancelled 01/20/20 04:18 Other Cells # Cancelled 01/20/20 04:18 Nucleated RBCs # (Man) Cancelled 01/20/20 04:18 Hypersegmented Neuts Cancelled 01/20/20 04:18 Hyposegmented Neuts Cancelled 01/20/20 04:18 Hypogranular Neuts Cancelled 01/20/20 04:18 Large Granular Lymphs Cancelled 01/20/20 04:18 # Lrg Granular Lymphs Cancelled 01/20/20 04:18 Hairy Cells Cancelled 01/20/20 04:18 Smudge Cells Cancelled 01/20/20 04:18 Toxic Granulation Cancelled 01/20/20 04:18 Toxic Vacuolation Cancelled 01/20/20 04:18 Dohle Bodies Cancelled 01/20/20 04:18 Marcio Rods Cancelled 01/20/20 04:18 Platelet Estimate Cancelled 01/20/20 04:18 Hypogranular Platelets Cancelled 01/20/20 04:18 Clumped Platelets Cancelled 01/20/20 04:18 Giant Platelets Cancelled 01/20/20 04:18 Platelet Satelliting Cancelled 01/20/20 04:18 RBC Morphology Cancelled 01/20/20 04:18 Polychromasia Cancelled 01/20/20 04:18 Hypochromasia Cancelled 01/20/20 04:18 Poikilocytosis Cancelled 01/20/20 04:18 Basophilic Stippling Cancelled 01/20/20 04:18 Anisocytosis Cancelled 01/20/20 04:18 Microcytosis Cancelled 01/20/20 04:18 Macrocytosis Cancelled 01/20/20 04:18 Spherocytes Cancelled 01/20/20 04:18 Pappenheimer Bodies Cancelled 01/20/20 04:18 Sickle Cells Cancelled 01/20/20 04:18 Target Cells Cancelled 01/20/20 04:18 Tear Drop Cells Cancelled 01/20/20 04:18 Ovalocytes Cancelled 01/20/20 04:18 Stomatocytes Cancelled 01/20/20 04:18 Ramires-Sholes Bodies Cancelled 01/20/20 04:18 Echinocytes Cancelled 01/20/20 04:18 Acanthocytes (Spur) Cancelled 01/20/20 04:18 Rouleaux Cancelled 01/20/20 04:18 RBC Agglutinates Cancelled 01/20/20 04:18 Schistocytes Cancelled 01/20/20 04:18 RBC Morph Comment Cancelled 01/20/20 04:18 ESR 32 mm/hr (0-14) H 01/04/20 16:51 Sezary Cell Cancelled 01/20/20 04:18 PT 11.2 Seconds (9.0-12.0) 01/04/20 16:51 INR 1.1 (0.9-1.1) 01/04/20 16:51 APTT 26.2 Seconds (21.0-31.0) 01/04/20 16:51 PTT Ratio 0.9 01/04/20 16:51 Specimen Type Arterial 01/14/20 05:23 Sample Site L Radial 01/16/20 05:37 Patient Temperature 37.2 01/14/20 05:23 POC pH 7.56 (7.35-7.45) H* 01/16/20 05:37 POC pCO2 36 mmHg (35-46) 01/16/20 05:37 POC pO2 88 mmHg (80-95) 01/16/20 05:37 POC HCO3 32 errol/L (19-24) H 01/16/20 05:37 POC Total CO2 33 mmol/L (24-31) H 01/16/20 05:37 POC Base Excess 9.0 errol/L (-9-1.8) H 01/16/20 05:37 O2 Sat Pulse Oximetry 97 01/14/20 05:23 ABG pH (Temp Correct) 7.456 (7.35-7.45) H 01/15/20 05:05 ABG pCO2 (Temp Corrct 47 mmHg (35-46) H 01/15/20 05:05 POC ABG pO2 at Pt Temp 81 01/15/20 05:05 POC ABG O2 Sat 98.0 % (90-95) H 01/16/20 05:37 Yves Test Pass 01/16/20 05:37 VBG pH 7.39 (7.36-7.41) 01/05/20 12:52 VBG pCO2 41 mmHg (38-50) 01/05/20 12:52 VBG pO2 86 mmHg 01/05/20 12:52 VBG HCO3 25 mmol/L 01/05/20 12:52 VBG O2 Saturation 96.7 % 01/05/20 12:52 VBG Base Excess -0.4 mEq/L 01/05/20 12:52 Barometric Pressure 733.7 mm/Hg 01/05/20 12:52 O2 Delivery Device Ventilator 01/16/20 05:37 POC O2 Rate 6 01/16/20 05:37 Minute Ventilation 6.2 01/16/20 05:37 Vent Mode CPAP 01/14/20 05:23 POC FiO2 30 % 01/15/20 05:05 Tidal Volume 450 01/16/20 05:37 End Tidal CO2 60 01/14/20 05:23 PEEP 5 01/16/20 05:37 Pressure Support Vent 10 01/15/20 05:05 POC Sodium 131 mmol/L (135-144) L 01/15/20 05:05 Sodium 135 mmol/L (136-145) L 01/20/20 04:18 POC Potassium 3.9 mmol/L (3.3-5.0) 01/15/20 05:05 Potassium 4.2 mmol/L (3.5-5.1) 01/20/20 04:18 POC Chloride 120 mmol/L (101-112) H 01/04/20 17:20 Chloride 101 mmol/L (98-107) 01/20/20 04:18 Carbon Dioxide 28 mmol/L (21-32) 01/20/20 04:18 POC Total CO2 28 mmol/L (24-31) 01/04/20 17:20 Anion Gap 6.0 (3-11) 01/20/20 04:18 POC Anion Gap 12.0 mmol/L (16-25) L 01/04/20 17:20 POC BUN 54 mg/dl (7-18) H 01/04/20 17:20 BUN 23 mg/dl (7-18) H 01/20/20 04:18 Creatinine 0.77 mg/dl (0.6-1.4) 01/20/20 04:18 POC Creatinine 1.9 mg/dl (0.6-1.3) H 01/04/20 17:20 Est Cr Clr Drug Dosing 82.8 ml/min 01/20/20 04:18 Est GFR ( Amer) 105.8 01/20/20 04:18 Est GFR (Non-Af Amer) 91.3 01/20/20 04:18 BUN/Creatinine Ratio 29.8 (10-20) H 01/20/20 04:18 Glucose 83 mg/dl (70-99) 01/20/20 04:18 POC Glucose 78 mg/dl (70-99) 01/20/20 08:33 POC Glucose (other) 205 mg/dl (70-99) H 01/04/20 17:20 Estimat Average Glucose 143 mg/dl 01/05/20 06:35 Hemoglobin A1c 6.6 % (4.5-5.6) H 01/05/20 06:35 Osmolality 359 mOsm/kg (280-300) H* 01/05/20 13:02 Lactate 1.3 mmol/L (0.4-2.0) 01/06/20 01:00 Calcium 9.0 mg/dl (8.5-10.1) 01/20/20 04:18 POC Ioniz Calcium [place] 1.11 mmol/l (1.12-1.32) L 01/04/20 17:20 Phosphorus 3.9 mg/dl (2.5-4.9) D 01/20/20 04:18 Magnesium 2.2 mg/dl (1.8-2.4) 01/20/20 04:18 Ferritin 504.2 ng/ml (8-388) H 01/04/20 16:51 Total Bilirubin 0.5 mg/dl (0.2-1) 01/19/20 04:00 Direct Bilirubin 0.1 mg/dl (0-0.2) 01/19/20 04:00 GGT 40 U/L (3-70) 01/07/20 10:15 AST 22 U/L (15-37) 01/19/20 04:00 ALT 36 U/L (12-78) 01/19/20 04:00 Alkaline Phosphatase 76 U/L (45-117) 01/19/20 04:00 Ammonia 29.0 umol/L (11-32) 01/14/20 10:19 Lactate Dehydrogenase 304 U/L (87-241) H 01/04/20 16:59 Total Creatine Kinase 38 U/L (39-308) L 01/04/20 16:51 CK-MB (CK-2) < 1.0 ng/ml (0.5-3.6) 01/04/20 16:51 CK/CKMB % Calc TNP 01/04/20 16:51 Troponin I < 0.015 ng/ml (0-0.045) 01/04/20 16:51 C-Reactive Protein 44.30 mg/dl (0-0.29) H 01/04/20 16:51 Total Protein 6.8 gm/dl (6.4-8.2) 01/19/20 04:00 Albumin 2.1 gm/dl (3.4-5.0) L 01/19/20 04:00 Globulin 4.2 gm/dl (2.5-4.0) H 01/12/20 04:31 Albumin/Globulin Ratio 0.5 (0.9-2) L 01/12/20 04:31 Triglycerides 401 mg/dl (0-150) H 01/07/20 10:15 Lipase 248 U/L (73-393) 01/07/20 10:15 Procalcitonin 0.10 ng/ml (0-0.5) 01/17/20 12:15 Specimen Hemolysis 01/20/20 04:18 Urine Color [place] 01/04/20 17:02 Urine Appearance Cloudy (Clear) A 01/04/20 17:02 Urine pH 5.0 (4.5-7.5) 01/04/20 17:02 Ur Specific [place] 1.038 (1.000-1.030) H 01/04/20 17:02 Urine Protein 2+ (Negative) H 01/04/20 17:02 Urine Glucose (UA) Negative (Negative) 01/04/20 17:02 Urine Ketones Trace (Negative) H 01/04/20 17:02 Urine Blood 3+ (Negative) H 01/04/20 17:02 Urine Nitrite Positive (Negative) A 01/04/20 17:02 Urine Bilirubin Negative (Negative) 01/04/20 17:02 Urine Urobilinogen Negative (Negative) 01/04/20 17:02 Ur Leukocyte Esterase 1+ (Negative) H 01/04/20 17:02 Urine WBC (Auto) 5-10 /hpf (0-5) H 01/04/20 17:02 Urine RBC (Auto) >30 /hpf (0-4) H 01/04/20 17:02 U Hyaline Cast (Auto) 1-5 /lpf (0-5) 01/04/20 17:02 U Epithel Cells (Auto) >30 /lpf (0-5) H 01/04/20 17:02 Urine Bacteria (Auto) 2+ (Negative) H 01/04/20 17:02 Urine Yeast Not Reportable 01/04/20 17:02 Urine Osmolality 805 mOsm/kg (500-800) H 01/05/20 14:30 Urine Sodium 24 mmol/L 01/05/20 14:30 Urine Potassium 78.7 mmol/L 01/05/20 14:30 Urine Chloride 26 mmol/L 01/05/20 14:30 Fluid Neutrophils % 94 % 01/05/20 12:50 Fluid Lymphocytes % 3 % 01/05/20 12:50 Fluid Eosinophils % 0 % 01/05/20 12:50 Fl Monocyt/Macrophag % 3 % 01/05/20 12:50 Nasal Screen MRSA (PCR) Negative (Negative) 01/05/20 14:30 Random Vancomycin 13.6 mcg/ml 01/06/20 04:14 Valproic Acid 64 mcg/ml (50-100) 01/16/20 13:15 Levetiracetam 29.5 mcg/mL (12.0-46.0) 01/05/20 06:35 Adenovirus (PCR) Not Detected (NotDetected) 01/04/20 17:00 B. pertussis DNA (PCR) Not Detected (NotDetected) 01/04/20 17:00 B.parapertussis DNA PCR Not Detected (NotDetected) 01/04/20 17:00 C. pneumoniae DNA (PCR) Not Detected (NotDetected) 01/04/20 17:00 Coronavirus OC43 (PCR) Not Detected (NotDetected) 01/04/20 17:00 Coronavirus HKU1 (PCR) Not Detected (NotDetected) 01/04/20 17:00 Coronavirus 229E (PCR) Not Detected (NotDetected) 01/04/20 17:00 COVID-19 PCR NEGATIVE (Negative) 01/04/20 17:30 Coronavirus NL63 (PCR) Not Detected (NotDetected) 01/04/20 17:00 Hepatitis A IgM Ab NON-REACTIVE (NON-REACTIVE) 01/07/20 10:15 Hep Bs Antigen Neg (Neg) 01/07/20 10:15 Hep B Core IgM Ab NON-REACTIVE (NON-REACTIVE) 01/07/20 10:15 Hepatitis C Antibody Neg (Neg) 01/07/20 10:15 Human Metapneumovir PCR Not Detected (NotDetected) 01/04/20 17:00 Influenza Type A (PCR) Cancelled 01/04/20 17:00 Influenza Type A (PCR) Not Detected (NotDetected) 01/04/20 17:00 Influenza Type B (PCR) Cancelled 01/04/20 17:00 Influenza Type B (PCR) Not Detected (NotDetected) 01/04/20 17:00 Legionella Source Cancelled 01/05/20 06:35 Legionella Source Cancelled 01/05/20 06:35 Legionella Culture Cancelled 01/05/20 06:35 L. pneumophila DFA Cancelled 01/05/20 06:35 Urine Legionella Ag SEE NOTE 01/05/20 20:26 M. pneumoniae (PCR) Not Detected (NotDetected) 01/04/20 17:00 Parainfluenza 1 (PCR) Not Detected (NotDetected) 01/04/20 17:00 Parainfluenza 2 (PCR) Not Detected (NotDetected) 01/04/20 17:00 Parainfluenza 3 (PCR) Not Detected (NotDetected) 01/04/20 17:00 Parainfluenza 4 (PCR) Not Detected (NotDetected) 01/04/20 17:00 RSV (PCR) Not Detected (NotDetected) 01/04/20 17:00 Entero/Rhino (PCR) Not Detected (NotDetected) 01/04/20 17:00 SARS-CoV-2 RNA (RT-PCR) Cancelled 01/04/20 17:00 Resident Activity Tracking Resident Involvement: Resident Care Provided Care Provided: Adult Hospital Medicine
[2020-01-20] MEDS: ALBUT/IPRATROP 3MG/0.5MG NEB 3 ML VIAL NEB SCH ×4 (07:12→18:33)
--- NOTE | 2020-01-20 07:55 | Anesthesiology Progress Note ---
Date of Service January 20, 2020 Anesthesia Post Procedure Vital Signs Vital Signs: Temp Pulse Pulse Pulse Resp BP BP 01/20/20 07:13 77 18 01/20/20 05:53 71 124/80 01/20/20 05:23 68 72 18 128/85 01/20/20 04:53 72 129/78 01/20/20 04:23 36.8 C 71 16 116/73 01/20/20 03:53 67 104/69 01/20/20 03:23 68 18 108/65 01/20/20 02:53 75 117/74 01/20/20 02:23 72 119/77 01/20/20 01:23 72 112/81 01/20/20 00:23 36.7 C 72 112/76 01/19/20 23:32 78 20 01/19/20 23:23 71 111/75 01/19/20 23:00 71 01/19/20 22:23 74 100/63 01/19/20 21:53 76 96/58 L 01/19/20 21:23 76 105/64 01/19/20 20:53 89 16 118/89 01/19/20 20:23 82 135/83 01/19/20 20:00 80 01/19/20 19:53 36.5 C 80 20 124/92 01/19/20 19:24 82 18 01/19/20 19:23 80 129/88 01/19/20 16:00 74 01/19/20 15:52 37.4 C 73 117/75 01/19/20 15:41 77 01/19/20 15:40 77 18 01/19/20 15:00 69 01/19/20 14:52 70 112/69 01/19/20 13:22 37.4 C 70 18 106/72 01/19/20 12:51 37.4 C 66 86/59 L 01/19/20 12:49 67 96/53 L 01/19/20 12:46 66 107/73 01/19/20 12:45 62 22 96/53 L 01/19/20 12:43 75 88/66 L 01/19/20 12:40 69 107/71 01/19/20 12:36 69 108/69 01/19/20 12:31 77 114/68 01/19/20 11:56 73 18 110/70 01/19/20 11:37 91 H 20 01/19/20 10:51 77 18 111/77 01/19/20 09:52 80 118/83 01/19/20 08:52 77 112/79 01/19/20 08:00 Pulse Ox Pulse Ox 01/20/20 07:13 99 01/20/20 05:53 99 01/20/20 05:23 99 01/20/20 04:53 99 01/20/20 04:23 94 01/20/20 03:53 100 01/20/20 03:23 100 01/20/20 02:53 99 01/20/20 02:23 99 01/20/20 01:23 98 01/20/20 00:23 99 01/19/20 23:32 99 01/19/20 23:23 98 01/19/20 23:00 01/19/20 22:23 98 01/19/20 21:53 98 01/19/20 21:23 96 01/19/20 20:53 99 01/19/20 20:23 98 01/19/20 20:00 01/19/20 19:53 98 01/19/20 19:24 98 01/19/20 19:23 99 01/19/20 16:00 97 01/19/20 15:52 98 01/19/20 15:41 100 01/19/20 15:40 100 01/19/20 15:00 01/19/20 14:52 99 01/19/20 13:22 97 01/19/20 12:51 100 01/19/20 12:49 01/19/20 12:46 100 01/19/20 12:45 100 01/19/20 12:43 100 01/19/20 12:40 100 01/19/20 12:36 100 01/19/20 12:31 99 01/19/20 11:56 98 01/19/20 11:37 99 01/19/20 10:51 98 01/19/20 09:52 97 01/19/20 08:52 95 01/19/20 08:00 99 Notes Mental Status: alert / awake / arousable and participated in evaluation Patient Amnestic to Procedure: Yes Nausea / Vomiting: adequately controlled Pain: adequately controlled Airway Patency, RR, SpO2: stable & adequate BP & HR: stable & adequate Hydration State: stable & adequate Anesthetic Complications: no major complications apparent and Pt Satisfied with anesthetic care
[2020-01-20] MEDS: VENLAFAXINE HCL 37.5 MG TAB PO SCH ×2 (08:12→20:52)
[2020-01-20] MEDS: LANSOPRAZOLE 15 MG SOLTAB PO SCH (08:13)
[2020-01-20] MEDS: DIVALPROEX SODIUM SPRINKLE 125 MG CAP PO SCH ×3 (08:13→20:52)
[2020-01-20] MEDS: ASPIRIN 81 MG CHEW PO SCH (08:16)
--- NOTE | 2020-01-20 08:56 | Communication Note ---
Date of Service: January 20, 2020 GI short note: PEG tube checked. It's in place, bumper at #3 level, snug but tube can be rotated well. Insertion site w/o drainage, leakage or bleeding. Per RN PEG tube flushes well. OK to use today for meds/feeding. GI will sign off; pls recall prn
[2020-01-20] MEDS ORDERED: INSULIN GLARGINE SOLOSTAR 100 UNITS/ML 3 ML PEN SC SCH (09:00)
--- NOTE | 2020-01-20 09:05 | Consultation ---
Date of Consultation January 20, 2020 History of Present Illness Attending Physician: Boyd Parr DO Allergies Allergy/AdvReac Type Severity Reaction Status Date / Time No Known Allergies Allergy Unverified 11/26/18 13:11 Home Medications Home Medications Medication Instructions Recorded Confirmed Type acetaminophen 650 mg PO Q8H PRN MDD 3G 11/26/18 01/04/20 History allopurinol 200 mg PO QAM 11/26/18 01/04/20 History bisacodyl [Dulcolax (bisacodyl)] 10 mg TX DAILY PRN 11/26/18 01/04/20 History calcium carbonate-vitamin D3 1 tab PO QAM 11/26/18 01/04/20 History [Calcium 500 + D] divalproex 250 mg PO TID 11/26/18 01/04/20 History gabapentin 600 mg PO TID 11/26/18 01/04/20 History haloperidol decanoate [Haldol 25 mg IM MONTHLY 11/26/18 01/06/20 History Decanoate] hydrocodone-acetaminophen 1 tab PO Q6H 11/26/18 01/04/20 History insulin glargine [Lantus Solostar 10 unit SUBCUT QAM 11/26/18 01/04/20 History U-100 Insulin] levetiracetam [Keppra] 750 mg PO BID 11/26/18 01/04/20 History lidocaine 1 applic TOPICAL QAM 11/26/18 01/04/20 History omeprazole 20 mg PO QAM 11/26/18 01/04/20 History quetiapine [Seroquel] 100 mg PO BID 11/26/18 01/04/20 History sennosides-docusate sodium 2 tab PO QAM 11/26/18 01/04/20 History [Senna-S] simvastatin [Zocor] 10 mg PO HS 11/26/18 01/04/20 History amoxicillin-pot clavulanate 1 tab PO BID 01/04/20 01/04/20 History cholecalciferol (vitamin D3) 125 mcg PO DAILY 01/04/20 01/04/20 History fentanyl 1 patch TRANSDERMAL Q72H 01/04/20 01/04/20 History haloperidol lactate 2 mg PO BID 01/04/20 01/04/20 History loperamide 2 mg PO Q8H PRN 01/04/20 01/04/20 History meloxicam 15 mg PO QAM 01/04/20 01/04/20 History venlafaxine 75 mg PO HS 01/04/20 01/04/20 History venlafaxine 150 mg PO QAM 01/04/20 01/04/20 History vitamin B complex-folic acid 1 cap PO QAM 01/04/20 01/04/20 History Patient History Medical History Alzheimer disease Chronic gout Chronic prescription opiate use Dementia (Chronic) Diabetes (Chronic) Gastrointestinal hemorrhage GERD (gastroesophageal reflux disease) (Chronic) Goals of care, counseling/discussion Hypertension (Acute) Muscle weakness Peripheral vascular disease Schizoaffective disorder, chronic condition (Chronic) Seizure disorder Stroke (Resolved) Urinary tract infection Social History Smoking Status: Unknown if ever smoked Communication Ability: Unable Current Living Situation: Snf Feels Safe at Home: Yes Physical Exam Physical Exam: Ophthalmology Consulted on January 18, 2020 Patient has Sherry Glabrata and was consulted to check for ocular involvement. The patient is not responsive and tends to keep his eyes closed so that he is difficult to examine. The external eye examination is completely clear and quiet in each eye. He has an excellent red reflex in each eye. A limited view of the posterior retina with the direct ophthalmoscope is normal. Strongly doubt any evidence for ocular involvement. Jakob De La Torre MD. Results & Data ([facility]) Vital Signs (Past 12 Hours) Vital Signs Temp Pulse Pulse Pulse Resp BP Pulse Ox 01/20/20 07:13 77 18 99 01/20/20 05:53 71 124/80 99 01/20/20 05:23 68 72 18 128/85 99 01/20/20 04:53 72 129/78 99 01/20/20 04:23 36.8 C 71 16 116/73 94 01/20/20 03:53 67 104/69 100 01/20/20 03:23 68 18 108/65 100 01/20/20 02:53 75 117/74 99 01/20/20 02:23 72 119/77 99 01/20/20 01:23 72 112/81 98 01/20/20 00:23 36.7 C 72 112/76 99 01/19/20 23:32 78 20 99 01/19/20 23:23 71 111/75 98 01/19/20 23:00 71 01/19/20 22:23 74 100/63 98 01/19/20 21:53 76 96/58 L 98 01/19/20 21:23 76 105/64 96
--- NOTE | 2020-01-20 11:43 | Hospitalist Progress Note ---
Date of Service January 20, 2020 Assessment & Plan (1) Sepsis associated hypotension: gram negatives in blood and urine growing quinalone resistant E Coli resolved now ESBL Klebsiella in sputum, antibiotics changed to Ceftolazone tazobactam after sputum grew ESBL Klebsiella no fever but WBC up to 17k end date for Ceftolazone is 01/22 PICC pulled for fever has peripheral IV, should be sufficient for the Ceftolazone but will need US guided line for Caspofungin plan to get PICC prior to discharge (2) Acute respiratory failure with hypoxia: Pt intubated and ventilated, managed by icu team Poor response attempted weaning trials concern for persistent ventilation required. weaning trial of 01/13 resulted inseizure like activity Concerns for recurrent aspiration and protecting airway Discussion with family and the critical care attending on sunday 01/14 with decision for DNR tracheostomy placed 01/14 now with tracheostomy, tolerating blow by oxygen on 01/18, essentially off ventilator support continue to monitor, stable on 8L today (3) Pneumonia: Aspiration vs. Health-care acquired (in snf setting). ESBL klebsiella grew, now on ceftolzone/tazobactam WBC elevated but stable now growing Sherry glabrata treat with Caspofungin for two weeks total (4) Urinary tract infection: treated (5) Acute kidney injury: Suspected prerenal due to acute infection, dehydration (poor oral intake) and meloxicam use. Resolved Continue holding meloxicam. Patient is on tube feeds resolved hypernatremia. (6) Hypernatremia: Increased on admission due to NSS given as boluses in ER and to some extent LR maintenance. Unlikely DI given no polyuria noted. Resolved (7) Altered mental state: metabolic encephalopathy CT head negative for acute intracranial abnormality EEG unremarkable (8) Schizoaffective disorder, chronic condition: previously taking both Seroquel 100 mg twice daily (although notably on Seroquel 150mg TID in 2015) and haloperidol 2mg PO BID and 25 mg IM monthly. Consulted psychiatry did not feel that delirium is related to his psychotropic medications. ok to use Haldol, will wean off Effexor (9) Psychosis: He has remained ventilated with support now via tracheostomy which was placed on 01/14. Continue to be unable to determine delusion or hallucinations given dementia and current cognitive state. (10) Dementia: Noted history of stroke with old left cerebral infarct. Although Alzheimer's noted on prior problem list Pt has been non functional at SNF for some time and has contracture of his right had that is pre hospital (11) Coronary artery disease: Unclear history of this. No prior stents or CABG Echocardiogram performed 01/03 shows normal EF, severe aortic stenosis. (12) Diabetes: HbA1C 6.6 Continue Novolog correction factor for now, plus scheduled lantus given reliable calorie intake (13) Hyperlipidemia: Hold simvastatin while NPO (14) GERD (gastroesophageal reflux disease): Now on Pepcid via his NG tube (15) Chronic prescription opiate use: Fentanyl patch removed on admission On chronic opiates for right foot and right hand pain.( hand contractures) Also taking Meloxicam 15mg QAM and Diamond Q6H OFE as per prior documentation back on Fentanyl patch, change every 72 hours (16) Peripheral vascular disease: Noted history of this. Not on antiplatelets are noted above. Holding simvastatin while NPO and lethargic. (17) Chronic gout: previously on allopurinol (18) Seizure disorder: Valproic acid and Keppra levels ordered (although notably these have previously been normal or low). Mya with neurology oversight after apparent seizure during weaning trial 01/13 pevious EEG - non-seizure activity noted despite head tremor during EEG. Very mild generalized slowing represents a very mild encephalopathy. Dr. 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 Suspect from prior stroke in setting of chronic anti-psychotic use. Consult neurology -is following and adjusting antiepileptic medications (21) Depression: previously on venlafaxine (22) DVT prophylaxis: lovenox daily Patient's brother who is only next of kin we can identify. 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, will down grade to med tele today discussed with CM, looking into LTACH local SNF will be difficult due to new trach d/w Psychiatry, will taper off of Effexor d/w Neurology, cut depakote to BID since it was treatment for mood, not seizures reviewed labs Review of Systems Review of Systems: Unobtainable due to cognitive status Physical Exam Constitutional: + ill appearing, comfortable and + lethargic Eyes: PERRL, conjunctivae normal, anicteric sclerae ENMT: external ear and nose normal, oropharynx normal Neck: trachea midline, no thyromegaly (tracheostomy midline) Respiratory: normal respiratory effort, lungs clear to auscultation (decreased breath sounds bases) Cardiovascular: RRR, no murmur, no edema Gastrointestinal (Abdomen): normal bowel sounds, soft, nontender, no hepatosplenomegaly Musculoskeletal: Head/Neck/Chest: normocephalic, head atraumatic and neck supple Extremities: + abnormal strength (generalized weakness, moving extremities) Skin: no rashes, warm and dry Neurologic: CN's II-XI intact bilaterally, deep tendon reflexes 2+ bilaterally, moves all extremities and + obtunded Psychiatric: Orientation: + not alert and + not oriented x 3 Lymphatic: no cervical or axillary lymphadenopathy Results & Data Results & Data ([facility]) Vital Signs (Past 12 Hours) Vital Signs Temp Pulse Pulse Pulse Resp BP Pulse Ox 01/20/20 11:11 77 18 96 01/20/20 11:10 77 18 96 01/20/20 09:23 96 H 126/93 97 01/20/20 09:00 87 97 01/20/20 08:53 86 134/83 96 01/20/20 08:23 86 125/78 98 01/20/20 08:00 75 24 98 01/20/20 07:53 69 129/80 98 01/20/20 07:23 71 127/77 99 01/20/20 07:13 77 18 99 01/20/20 07:00 72 98 01/20/20 05:53 71 124/80 99 01/20/20 05:23 68 72 18 128/85 99 01/20/20 04:53 72 129/78 99 01/20/20 04:23 36.8 C 71 16 116/73 94 01/20/20 03:53 67 104/69 100 01/20/20 03:23 68 18 108/65 100 01/20/20 02:53 75 117/74 99 01/20/20 02:23 72 119/77 99 01/20/20 01:23 72 112/81 98 01/20/20 00:23 36.7 C 72 112/76 99 Laboratory Results Laboratory Results - last 24 hr 01/18/20 01/19/20 01/19/20 17:51 15:48 20:33 WBC RBC Hgb Hct MCV MCH MCHC RDW Std Deviation RDW Coeff of Kasey Plt Count MPV Immature Gran % (Auto) Neut % (Auto) Lymph % (Auto) [place] % (Auto) Eos % (Auto) Baso % (Auto) Neut # (Auto) Lymph # (Auto) [place] # (Auto) Eos # (Auto) Baso # (Auto) Immature Gran # (Auto) Absolute Nucleated RBC Nucleated RBC % (auto) Neutrophils % (Manual) Band Neutrophils % Lymphocytes % (Manual) Prolymphocyte % Reactive Lymphs % (Man) Monocytes % (Manual) Eosinophils % (Manual) Basophils % (Manual) Metamyelocytes % (Man) Myelocytes % (Man) Promyelocytes % (Man) Blast Cells % (Manual) Plasma Cell % (Manual) Other Cells % Nucleated RBC % Neutrophils # (Manual) Band Neutrophils # Total Absolute Neuts Lymphocytes # (Manual) Prolymphocyte # Reactive Lymphs # Total Abs Lymphocytes Monocytes # (Manual) Eosinophils # (Manual) Basophils # (Manual) Metamyelocytes # (Man) Myelocytes # (Manual) Promyelocytes # (Man) Blast Cells # (Man) Plasma Cell # (Manual) Other Cells # Nucleated RBCs # (Man) Hypersegmented Neuts Hyposegmented Neuts Hypogranular Neuts Large Granular Lymphs # Lrg Granular Lymphs Hairy Cells Smudge Cells Toxic Granulation Toxic Vacuolation Dohle Bodies Marcio Rods Platelet Estimate Hypogranular Platelets Clumped Platelets Giant Platelets Platelet Satelliting RBC Morphology Polychromasia Hypochromasia Poikilocytosis Basophilic Stippling Anisocytosis Microcytosis Macrocytosis Spherocytes Pappenheimer Bodies Sickle Cells Target Cells Tear Drop Cells Ovalocytes Stomatocytes Ramires-Tulia Bodies Echinocytes Acanthocytes (Spur) Rouleaux RBC Agglutinates Schistocytes RBC Morph Comment Sezary Cell Sodium Potassium Chloride Carbon Dioxide Anion Gap BUN Creatinine Est Cr Clr Drug Dosing Est GFR ( Amer) Est GFR (Non-Af Amer) BUN/Creatinine Ratio Glucose POC Glucose 100 H 99 Calcium Phosphorus Magnesium Specimen Hemolysis Bld Cult Staph aureus PCR Negative Blood Culture MRSA PCR Negative 01/20/20 01/20/20 01/20/20 00:27 04:18 04:18 WBC Cancelled RBC Cancelled Hgb Cancelled Hct Cancelled MCV Cancelled MCH Cancelled MCHC Cancelled RDW Std Deviation Cancelled RDW Coeff of Kasey Cancelled Plt Count Cancelled MPV Cancelled Immature Gran % (Auto) Cancelled Neut % (Auto) Cancelled Lymph % (Auto) Cancelled [place] % (Auto) Cancelled Eos % (Auto) Cancelled Baso % (Auto) Cancelled Neut # (Auto) Cancelled Lymph # (Auto) Cancelled [place] # (Auto) Cancelled Eos # (Auto) Cancelled Baso # (Auto) Cancelled Immature Gran # (Auto) Cancelled Absolute Nucleated RBC Cancelled Nucleated RBC % (auto) Cancelled Neutrophils % (Manual) Cancelled Band Neutrophils % Cancelled Lymphocytes % (Manual) Cancelled Prolymphocyte % Cancelled Reactive Lymphs % (Man) Cancelled Monocytes % (Manual) Cancelled Eosinophils % (Manual) Cancelled Basophils % (Manual) Cancelled Metamyelocytes % (Man) Cancelled Myelocytes % (Man) Cancelled Promyelocytes % (Man) Cancelled Blast Cells % (Manual) Cancelled Plasma Cell % (Manual) Cancelled Other Cells % Cancelled Nucleated RBC % Cancelled Neutrophils # (Manual) Cancelled Band Neutrophils # Cancelled Total Absolute Neuts Cancelled Lymphocytes # (Manual) Cancelled Prolymphocyte # Cancelled Reactive Lymphs # Cancelled Total Abs Lymphocytes Cancelled Monocytes # (Manual) Cancelled Eosinophils # (Manual) Cancelled Basophils # (Manual) Cancelled Metamyelocytes # (Man) Cancelled Myelocytes # (Manual) Cancelled Promyelocytes # (Man) Cancelled Blast Cells # (Man) Cancelled Plasma Cell # (Manual) Cancelled Other Cells # Cancelled Nucleated RBCs # (Man) Cancelled Hypersegmented Neuts Cancelled Hyposegmented Neuts Cancelled Hypogranular Neuts Cancelled Large Granular Lymphs Cancelled # Lrg Granular Lymphs Cancelled Hairy Cells Cancelled Smudge Cells Cancelled Toxic Granulation Cancelled Toxic Vacuolation Cancelled Dohle Bodies Cancelled Marcio Rods Cancelled Platelet Estimate Cancelled Hypogranular Platelets Cancelled Clumped Platelets Cancelled Giant Platelets Cancelled Platelet Satelliting Cancelled RBC Morphology Cancelled Polychromasia Cancelled Hypochromasia Cancelled Poikilocytosis Cancelled Basophilic Stippling Cancelled Anisocytosis Cancelled Microcytosis Cancelled Macrocytosis Cancelled Spherocytes Cancelled Pappenheimer Bodies Cancelled Sickle Cells Cancelled Target Cells Cancelled Tear Drop Cells Cancelled Ovalocytes Cancelled Stomatocytes Cancelled Ramires-Tulia Bodies Cancelled Echinocytes Cancelled Acanthocytes (Spur) Cancelled Rouleaux Cancelled RBC Agglutinates Cancelled Schistocytes Cancelled RBC Morph Comment Cancelled Sezary Cell Cancelled Sodium 135 L Potassium 4.2 Chloride 101 Carbon Dioxide 28 Anion Gap 6.0 BUN 23 H Creatinine 0.77 Est Cr Clr Drug Dosing 82.8 Est GFR ( Amer) 105.8 Est GFR (Non-Af Amer) 91.3 BUN/Creatinine Ratio 29.8 H Glucose 83 POC Glucose 95 Calcium 9.0 Phosphorus 3.9 D Magnesium 2.2 Specimen Hemolysis Bld Cult Staph aureus PCR Blood Culture MRSA PCR 01/20/20 01/20/20 01/20/20 04:33 05:37 08:33 WBC 13.25 H RBC 3.36 L Hgb 10.3 L Hct 31.5 L MCV 93.8 MCH 30.7 MCHC 32.7 RDW Std Deviation 46.2 RDW Coeff of Kasey 13.6 Plt Count 329 MPV 9.1 Immature Gran % (Auto) 0.5 Neut % (Auto) 78.3 Lymph % (Auto) 12.3 [place] % (Auto) 8.6 Eos % (Auto) 0.1 Baso % (Auto) 0.2 Neut # (Auto) 10.38 H Lymph # (Auto) 1.63 [place] # (Auto) 1.14 H Eos # (Auto) 0.01 Baso # (Auto) 0.02 Immature Gran # (Auto) 0.07 H Absolute Nucleated RBC Nucleated RBC % (auto) Neutrophils % (Manual) Band Neutrophils % Lymphocytes % (Manual) Prolymphocyte % Reactive Lymphs % (Man) Monocytes % (Manual) Eosinophils % (Manual) Basophils % (Manual) Metamyelocytes % (Man) Myelocytes % (Man) Promyelocytes % (Man) Blast Cells % (Manual) Plasma Cell % (Manual) Other Cells % Nucleated RBC % Neutrophils # (Manual) Band Neutrophils # Total Absolute Neuts Lymphocytes # (Manual) Prolymphocyte # Reactive Lymphs # Total Abs Lymphocytes Monocytes # (Manual) Eosinophils # (Manual) Basophils # (Manual) Metamyelocytes # (Man) Myelocytes # (Manual) Promyelocytes # (Man) Blast Cells # (Man) Plasma Cell # (Manual) Other Cells # Nucleated RBCs # (Man) Hypersegmented Neuts Hyposegmented Neuts Hypogranular Neuts Large Granular Lymphs # Lrg Granular Lymphs Hairy Cells Smudge Cells Toxic Granulation Toxic Vacuolation Dohle Bodies Marcio Rods Platelet Estimate Hypogranular Platelets Clumped Platelets Giant Platelets Platelet Satelliting RBC Morphology Polychromasia Hypochromasia Poikilocytosis Basophilic Stippling Anisocytosis Microcytosis Macrocytosis Spherocytes Pappenheimer Bodies Sickle Cells Target Cells Tear Drop Cells Ovalocytes Stomatocytes Ramires-Tulia Bodies Echinocytes Acanthocytes (Spur) Rouleaux RBC Agglutinates Schistocytes RBC Morph Comment Sezary Cell Sodium Potassium Chloride Carbon Dioxide Anion Gap BUN Creatinine Est Cr Clr Drug Dosing Est GFR ( Amer) Est GFR (Non-Af Amer) BUN/Creatinine Ratio Glucose POC Glucose 87 78 Calcium Phosphorus Magnesium Specimen Hemolysis Bld Cult Staph aureus PCR Blood Culture MRSA PCR Medications Administered Current Inpatient Medications Albuterol (Duoneb) 3 ml NEB QIDR OFE Stop: 02/04/20 06:59 Last Admin: 01/20/20 11:10 Dose: 3 ml Documented by: Aspirin (Aspirin Chew) 81 mg PO DAILY OFE Stop: 02/06/20 09:59 Last Admin: 01/20/20 08:16 Dose: 81 mg Documented by: Dextrose (Dextrose 50%) 25 - 50 ml IV UD PRN; Protocol PRN Reason: Hypoglycemia Protocol Stop: 02/03/20 20:13 Last Admin: 01/17/20 21:01 Dose: 25 ml Documented by: Divalproex Sodium (Depakote Sprinkle) 500 mg PO TID OFE Stop: 02/13/20 08:59 Last Admin: 01/20/20 08:13 Dose: 500 mg Documented by: Enoxaparin Sodium (Lovenox) 40 mg SQ DAILY@1400 OFE Stop: 02/06/20 13:59 Last Admin: 01/19/20 14:16 Dose: 40 mg Documented by: Enteral Nutritional Formula (Impact 1.0 Rohit) 1,000 ml PEG UD PRN; Protocol PRN Reason: TUBE FEEDS Stop: 02/05/20 11:49 Fentanyl (Duragesic) 25 mcg TD Q72H OFE Stop: 02/01/20 10:59 Last Admin: 01/18/20 12:33 Dose: 25 mcg Documented by: Glucagon (Glucagen) 1 mg SQ UD PRN; Protocol PRN Reason: Hypoglycemia Protocol Stop: 02/03/20 20:13 Glucose (Dex4 Glucose) 4 - 8 tabs PO UD PRN; Protocol PRN Reason: Hypoglycemia Protocol Stop: 02/03/20 20:13 Glucose (Glucose 40%) 15 - 30 gm PO UD PRN; Protocol PRN Reason: Hypoglycemia Protocol Stop: 02/03/20 20:13 Heparin Sodium (Beef Lung) (Heparin Sod 10 Unit/Ml Flush) 5 ml FLUSH PRN PRN PRN Reason: Flush Stop: 02/14/20 17:12 Lorazepam (Ativan) 1 mg in 2 mls @ 2 mls/min IV Q4H PRN PRN Reason: Sedation Stop: 02/12/20 15:21 Last Admin: 01/19/20 20:55 Dose: 2 mls/min Documented by: Ceftolozane/Tazobactam 3,000 (mg/ Dextrose) 122.8 mls @ 111.4 mls/hr IV Q8H OFE Stop: 01/23/20 23:59 Last Infusion: 01/20/20 10:00 Dose: Infused Documented by: Caspofungin 50 mg/ Sodium (Chloride) 260 mls @ 250 mls/hr IV Q24H OFE; Protocol Stop: 01/30/20 20:03 Last Infusion: 01/19/20 20:40 Dose: Infused Documented by: Insulin Aspart (Novolog Flexpen) 0 units SC Q4 OFE; Protocol Stop: 02/03/20 20:44 Last Admin: 01/20/20 08:47 Dose: Not Given Documented by: Insulin Glargine (Lantus Solostar Pen) 5 units SC QAM OFE Stop: 02/19/20 08:59 Lansoprazole (Prevacid) 15 mg PO QAM OFE Stop: 02/12/20 08:59 Last Admin: 01/20/20 08:13 Dose: 15 mg Documented by: Levetiracetam (Keppra) 500 mg PO Q12H OFE Stop: 02/17/20 20:59 Last Admin: 01/20/20 08:12 Dose: 500 mg Documented by: Miscellaneous (Carbohydrates For Hypoglycemia) 15 - 30 gm PO UD PRN PRN Reason: Hypoglycemia Protocol Stop: 02/03/20 20:13 Miscellaneous (Icu Electrolyte Replacement Protocol) 1 ea N/A UD PRN PRN Reason: for e-lyte repletion Stop: 01/22/20 06:30 Miscellaneous (Fentanyl Patch Remove & Waste) 1 ea N/A Q72H OFE Stop: 02/20/20 10:58 Miscellaneous (Fentanyl Patch Check Placement) 1 ea N/A QS OFE Stop: 02/17/20 15:59 Last Admin: 01/20/20 08:11 Dose: 1 ea Documented by: Miscellaneous Information (Consult Glycemic Management Pharmacy) 1 ea N/A UD PRN PRN Reason: Consult Stop: 02/16/20 08:55 Sterile Water (Tube Feeding Water Flush) 50 ea GT Q8H OFE Stop: 02/18/20 10:59 Last Admin: 01/20/20 03:43 Dose: 50 ea Documented by: Venlafaxine HCl (Effexor) 37.5 mg PO BID OFE Stop: 02/17/20 20:59 Last Admin: 01/20/20 08:12 Dose: 37.5 mg Documented by: PG Care Time/CCT Total # of Minutes Spent Total Time Spent with Patient: Total time spent is greater than 50% in coordination of care (as documented) at patient's floor/unit and/or counseling patient: Coding Level of Care Code 54984 Subseq Hosp Care Lvl 2 Diagnoses Sepsis associated hypotension A41.9; I95.9 Acute respiratory failure with hypoxia J96.01 Pneumonia J18.9 Urinary tract infection N39.0 Acute kidney injury N17.9 Hypernatremia E87.0 Altered mental state R41.82 Schizoaffective disorder, chronic condition F25.8 Psychosis F29 Dementia F03.90 Coronary artery disease I25.10 Diabetes E11.9 Hyperlipidemia E78.5 GERD (gastroesophageal reflux disease) K21.9 Chronic prescription opiate use Z79.891 Peripheral vascular disease I73.9 Chronic gout [id number] Seizure disorder G40.909 Muscle weakness M62.81 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
--- NOTE | 2020-01-20 12:21 | Billing Data ---
Date of Service January 19, 2020 Coding Level of Care Code 32827 Subseq Hosp Care Lvl 3 Comment Also participated in ventilator management upon return from the operating room moving towards aerosol trach mask. Please include CPT 79052
--- NOTE | 2020-01-20 12:22 | Billing Data ---
Date of Service January 20, 2020 Coding Level of Care Code 62259 Subseq Hosp Care Lvl 2
--- NOTE | 2020-01-20 13:17 | Neurology Progress Note ---
Date of Service January 20, 2020 Assessment & Plan (1) Dementia: (2) Encephalopathy: (3) Schizoaffective disorder, chronic condition: (4) H/O: stroke with residual effects: (5) Seizure disorder: Fede Hinojosa is a 69 yo man w/ PMH of prior left BERRY stroke with residual right-sided weakness and aphasia complicated by post stroke spasticity and epilepsy, dementia, protein energy malnutrition, diabetes, hypertension, schizoaffective disorder, hyperlipidemia who presented to [facility] with sepsis. Neurology consulted given h/o epilepsy and possible breakthrough seizure. # Epilepsy: depakote is also being used for mood control, however, in pts over 65yo, it is not receommended to give more than 1000mg total per day given high risk of adverse effects - current AEDs: keppra 500mg q12h, depakote 500mg tid - recommend increasing keppra to 750mg q12h and decreasing depakote to 500mg bid - check free and total depakote levels, especially as he has hypoalbuminemia and this can lead to misleading levels on total only measures - would also repeat ammonia level on 01/20 # H/o left BERRY stroke with residual deficits: - continue aspirin 81mg daily, restart home simvastatin 10mg qhs when safe from a medical standpoint # Dementia: - delirium precautions - generally not appropriate to be on opiates with his level of dementia. Would consider weaning off (unless made comfort only) as this can worsen mental status. If higher level of pain control above tylenol/gabapentin needed, would consider tramadol instead of fentanyl/hydrocodone. Thank you for this interesting consult. Plan of care discussed with primary team. Please call or text questions. Admission and Anticipated Discharge Date Admission Date: January 04, 2020 Subjective NAEs overnight. Unable to answer any questions or follow commands. Would track examiner and move his RUE/RLE. Review of Systems Review of Systems: Unobtainable due to cognitive status Results & Data ([facility]) Vital Signs (Past 12 Hours) Vital Signs Temp Pulse Pulse Pulse Resp BP Pulse Ox 01/20/20 11:11 77 18 96 01/20/20 11:10 77 18 96 01/20/20 09:23 96 H 126/93 97 01/20/20 09:00 87 97 01/20/20 08:53 86 134/83 96 01/20/20 08:23 86 125/78 98 01/20/20 08:00 75 24 98 01/20/20 07:53 69 129/80 98 01/20/20 07:23 71 127/77 99 01/20/20 07:13 77 18 99 01/20/20 07:00 72 98 01/20/20 05:53 71 124/80 99 01/20/20 05:23 68 72 18 128/85 99 01/20/20 04:53 72 129/78 99 01/20/20 04:23 36.8 C 71 16 116/73 94 01/20/20 03:53 67 104/69 100 01/20/20 03:23 68 18 108/65 100 01/20/20 02:53 75 117/74 99 01/20/20 02:23 72 119/77 99 01/20/20 01:23 72 112/81 98 Exam (Neuro) Physical Exam: General Exam: GEN: NAD, lying in bed. HEENT: No conjunctival injection, no rhinorrhea. CV: RRR, no peripheral edema PULM: trach with 8L Neuro Exam: MS: Awake and Alert. Unable to answer orientation questions. Does not follow commands. Cognition and memory grossly impaired but cannot be fully assess given global aphasia. Inattentive CN: PERRLA OU. Unable to fully assess extraocular movements but those that are observed were intact without nystagmus. Positive blink to threat bilaterally. Face symmetric. Positive cough. Unable to further test cranial nerves given mental status. MOTOR: Decreased muscle bulk, increased tone in RLE>RUE. Moving all extremities antigravity. REFLEXES: Unable to assess biceps or upper extremity reflexes given patient inability to hold still. Bilateral patella 2+ and trace Achilles bilaterally. SENSORY: Withdraws to sensation in all extremities COORDINATION: Unable to assess given patient inability to follow commands. No clear ataxia or dysmetria noted on observed movements. GAIT: Deferred given physical status. PG Care Time/CCT Total # of Minutes Spent Total Time Spent with Patient: Total time spent is greater than 50% in coordination of care (as documented) at patient's floor/unit and/or counseling patient: Coding Level of Care Code 92423 Subseq Hosp Care Lvl 3 Diagnoses Dementia F03.90 Encephalopathy G93.40 Schizoaffective disorder, chronic condition F25.8 H/O: stroke with residual effects I69.30 Seizure disorder G40.90
--- NOTE | 2020-01-20 15:11 | Pharmacy Report ---
Pharmacy Glycemic Short Note 2 - Date of Service January 20, 2020 - Glycemic Short BSG Results (Last 24 hours): 01/19/20 01/19/20 01/20/20 15:48 20:33 00:27 Glucose POC Glucose 100 H 99 95 01/20/20 01/20/20 01/20/20 04:18 04:33 08:33 Glucose 83 POC Glucose 87 78 01/20/20 12:04 Glucose POC Glucose 98 OUTPATIENT ANTIDIABETIC REGIMEN: * Lantus 10 units SQ daily * A1c = 6.6% 01/05/20 ASSESSMENT: 01/19 * BSGs again well controlled * Patient's BSGs 100 or less over much of the last 24 hrs due to tube feeds on hold - will hold Lantus this AM, with plan to resume only if TF resume or if BSG greater than 110. Will scale Lantus dose once daily. * Awaiting GI approval to resume tube feeds following PEG placement yesterday. It appears pt will resume continuous tube feeds although there has been discussion that bolus feeds may be preferred in the future. * May consider conversion to Q 6 hr Regular insulin for prandial insulin in near future only if continuous tube feeds are the long-term plan instead of bolus feeds. 01/18 * BSGs well controlled over last 24 hrs * Fasting BSG 91-136 this AM with 10 units Lantus on board, patient's tube feeds on hold since midnight for PEG placement today * Plan to give 50% usual Lantus dose this AM due to uncertain duration of NPO for procedure, will resume usual dose once tube feeds resume * Possible plan to convert patient to bolus or cyclic tube feeds in near future. 01/17 * Type 2 diabetic admitted to ICU acute resp failure, sepsis (UTI and PNA), and CORY * Patient remains in ICU at this time, still dependent of ventilator however now has trach in place * Continuous tube feeds tolerated and running at goal * Patient did have one episode of hypoglycemia last evening, likely secondary to excess prandial insulin given to cover tube feeds. As a result both Novolog and Lantus doses lessened last evening. Since these changes BSGs have mostly been in the 170s range. * Plan to resume out-pt Lantus dose with slightly higher Novolog doses today PLAN FOR INPATIENT GLYCEMIC CONTROL: * Basal insulin - reduced dose * Lantus - hold AM dose today, then resume tomorrow once daily dosing per scale: 0 units if less than 110, 5 units if 110-140, 10 units if > 140 * Bolus insulin - no change * NovoLog per scale Q 4hrs * Goal Range: Low 130 mg/dL - High 160 mg/dL * Correction Factor: 30 mg/dL/unit * Nutritional / Prandial insulin per carb ratio of 1 unit per 12 grams CHO consumed PLAN FOR DISCHARGE: * to be determined - will ultimately depend upon method of feeding on discharge
[2020-01-20] MEDS: ENOXAPARIN INJ 40 MG/0.4 ML SYR SQ SCH (15:12)
[2020-01-20] MEDS: CASPOFUNGIN 50 MG in SODIUM CHLORIDE 0.9% 250 ML IV SCH (19:26)
[2020-01-20] MEDS: ACETAMINOPHEN 1000 MG/100 ML IV IV PRN (20:52)
[2020-01-20] MEDS: LORazepam 1 MG/2 ML VIAL IV PRN (23:11)
[2020-01-21] MEDS: CEFTOLOZANE/TAZOBACTAM 3,000 MG in DEXTROSE 5% 100 ML IV SCH ×3 (01:24→17:43)
[2020-01-21] MEDS: TUBE FEEDING WATER FLUSH GT SCH ×3 (03:10→19:02)
[2020-01-21] MEDS: INSULIN ASPART 100 UNITS/ML 3 ML PEN SC SCH ×5 (04:24→20:42)
[2020-01-21] MEDS: ALBUT/IPRATROP 3MG/0.5MG NEB 3 ML VIAL NEB SCH ×4 (07:30→19:50)
[2020-01-21] MEDS ORDERED: INSULIN GLARGINE SOLOSTAR 100 UNITS/ML 3 ML PEN SC SCH ×2 (09:00→17:00)
[2020-01-21] MEDS: CHECK FENTANYL PATCH PLACEMENT SCH ×2 (09:13→15:34)
[2020-01-21] MEDS: DIVALPROEX SODIUM SPRINKLE 125 MG CAP PO SCH ×2 (09:15→20:42)
[2020-01-21] MEDS: VENLAFAXINE HCL 37.5 MG TAB PO SCH (09:17)
[2020-01-21] MEDS: LANSOPRAZOLE 15 MG SOLTAB PO SCH (09:18)
[2020-01-21] MEDS: ASPIRIN 81 MG CHEW PO SCH (09:24)
[2020-01-21] MEDS: fentaNYL 25 MCG/HR TDSY TD SCH (10:47)
[2020-01-21] MEDS: ENOXAPARIN INJ 40 MG/0.4 ML SYR SQ SCH (12:55)
--- NOTE | 2020-01-21 13:36 | Pharmacy Report ---
Pharmacy Glycemic Short Note 2 - Date of Service January 21, 2020 - Glycemic Short BSG Results (Last 24 hours): 01/20/20 01/20/20 01/21/20 20:40 23:47 04:22 POC Glucose 113 H 120 H 177 H 01/21/20 01/21/20 07:51 11:43 POC Glucose 112 H 179 H OUTPATIENT ANTIDIABETIC REGIMEN: * Lantus 10 units SQ daily * A1c = 6.6% 01/05/20 ASSESSMENT: 01/20 * Patient did not receive any insulin yesterday, as feeds were on hold * BSG this AM 112 mg/dl - no basal insulin indicated * Spoke with RN and confirmed tube feeds restarted, now at goal at lunch time with feeds / covered with novolog * Plan to add basal insulin back on at dinner as anticipate BSGs to rise with tube feedings added back on 01/19 * BSGs again well controlled * Patient's BSGs 100 or less over much of the last 24 hrs due to tube feeds on hold - will hold Lantus this AM, with plan to resume only if TF resume or if BSG greater than 110. Will scale Lantus dose once daily. * Awaiting GI approval to resume tube feeds following PEG placement yesterday. It appears pt will resume continuous tube feeds although there has been discussion that bolus feeds may be preferred in the future. * May consider conversion to Q 6 hr Regular insulin for prandial insulin in near future only if continuous tube feeds are the long-term plan instead of bolus feeds PLAN FOR INPATIENT GLYCEMIC CONTROL: * Basal insulin * Lantus - hold AM dose today, then resume at dinner once daily dosing per s akbar: 0 units if less than 110, 5 units if 110-140, 8 units if > 140 * Bolus insulin - no change * NovoLog per scale Q 4hrs * Goal Range: Low 130 mg/dL - High 160 mg/dL * Correction Factor: 30 mg/dL/unit * Nutritional / Prandial insulin per carb ratio of 1 unit per 12 grams CHO consumed PLAN FOR DISCHARGE: * to be determined - will ultimately depend upon method of feeding on discharge
--- NOTE | 2020-01-21 16:28 | Neurology Progress Note ---
Date of Service January 21, 2020 Assessment & Plan (1) Dementia: (2) Encephalopathy: (3) Schizoaffective disorder, chronic condition: (4) H/O: stroke with residual effects: (5) Seizure disorder: Fede Hinojosa is a 69 yo man w/ PMH of prior left BERRY stroke with residual right-sided weakness and aphasia complicated by post stroke spasticity and epilepsy, dementia, protein energy malnutrition, diabetes, hypertension, schizoaffective disorder, hyperlipidemia who presented to [facility] with sepsis. Neurology consulted given h/o epilepsy and possible breakthrough seizure. # Epilepsy: depakote is also being used for mood control, however, in pts over 65yo, it is not recommended to give more than 1000mg total per day given high risk of adverse effects, doses adjusted accordingly. Ammonia level WNL. - current AEDs: keppra 750mg bid, depakote 500mg bid - total depakote 64, free level pending - would also repeat ammonia level on 01/20 # H/o left BERRY stroke with residual deficits: - continue aspirin 81mg daily, restart home simvastatin 10mg qhs when safe from a medical standpoint # Dementia: - delirium precautions - generally not appropriate to be on opiates with his level of dementia. Would consider weaning off (unless made comfort only) as this can worsen mental status. If higher level of pain control above tylenol/gabapentin needed, would consider tramadol instead of fentanyl/hydrocodone. For spasticity, could also start baclofen. Thank you for this interesting consult. Plan of care discussed with primary team. Please call or text questions. Admission and Anticipated Discharge Date Admission Date: January 04, 2020 Subjective NAEs overnight. Resting in bed. Review of Systems Review of Systems: Unobtainable due to cognitive status Results & Data ([facility]) Vital Signs (Past 12 Hours) Vital Signs Temp Pulse Pulse Resp BP Pulse Ox 01/21/20 15:12 71 16 98 01/21/20 15:10 37.0 C 82 18 129/73 97 01/21/20 11:21 89 18 92 01/21/20 11:20 37.4 C 92 H 18 150/66 H 93 01/21/20 08:00 76 01/21/20 07:34 89 18 92 01/21/20 07:30 37.2 C 72 18 143/77 H 93 Exam (Neuro) Physical Exam: General Exam: GEN: NAD, lying in bed. HEENT: No conjunctival injection, no rhinorrhea. CV: RRR, no peripheral edema PULM: trach with 6L Neuro Exam: MS: Awake and Alert. Unable to answer orientation questions. Does not follow commands. Cognition and memory grossly impaired but cannot be fully assess given global aphasia. Inattentive CN: PERRLA OU. Unable to fully assess extraocular movements but those that are observed were intact without nystagmus. Positive blink to threat bilaterally. Face symmetric. Positive cough. Unable to further test cranial nerves given mental status. MOTOR: Decreased muscle bulk, increased tone in RLE>RUE. Moving all extremities antigravity. +tardive dyskinesia REFLEXES: Unable to assess biceps or upper extremity reflexes given patient inability to hold still. Bilateral patella 2+ and trace Achilles bilaterally. SENSORY: Withdraws to sensation in all extremities COORDINATION: Unable to assess given patient inability to follow commands. No clear ataxia or dysmetria noted on observed movements. GAIT: Deferred given physical status. PG Care Time/CCT Total # of Minutes Spent Total Time Spent with Patient: Total time spent is greater than 50% in coordination of care (as documented) at patient's floor/unit and/or counseling patient: Coding Level of Care Code 66086 Subseq Hosp Care Lvl 3 Diagnoses Dementia F03.90 Encephalopathy G93.40 Schizoaffective disorder, chronic condition F25.8 H/O: stroke with residual effects I69.30 Seizure disorder G40.909
--- NOTE | 2020-01-21 16:29 | Hospitalist Progress Note ---
Date of Service January 21, 2020 Assessment & Plan (1) Sepsis associated hypotension: gram negatives in blood and urine growing quinalone resistant E Coli resolved now ESBL Klebsiella in sputum, antibiotics changed to Ceftolazone tazobactam after sputum grew ESBL Klebsiella no fever but WBC up to 17k end date for Ceftolazone is 01/22 PICC pulled for fever has peripheral IV, should be sufficient for the Ceftolazone but will need US guided line for Caspofungin plan to get US guided prior to discharge (2) Acute respiratory failure with hypoxia: Pt was intubated and ventilated, managed by icu team Poor response attempted weaning trials concern for persistent ventilation required. weaning trial of 01/13 resulted in seizure like activity Concerns for recurrent aspiration and protecting airway Discussion with family and the critical care attending on Sunday 01/14 with decision for DNR tracheostomy placed 01/14 now with tracheostomy, tolerating blow by oxygen on 01/18, essentially off ventilator support continue to monitor, stable on 6L today which is improvement (3) Pneumonia: Aspiration vs. Health-care acquired (in halfway setting). ESBL klebsiella grew, now on ceftolzone/tazobactam WBC elevated but stable now growing Sherry glabrata treat with Caspofungin for two weeks total (4) Urinary tract infection: treated (5) Acute kidney injury: Suspected prerenal due to acute infection, dehydration (poor oral intake) and meloxicam use. Resolved Continue holding meloxicam. Patient is on tube feeds resolved hypernatremia. (6) Hypernatremia: Increased on admission due to NSS given as boluses in ER and to some extent LR maintenance. Unlikely DI given no polyuria noted. Resolved repeat BMP tomorrow, on tube feeds and free water flushes at this time (7) Altered mental state: metabolic encephalopathy CT head negative for acute intracranial abnormality EEG unremarkable (8) Schizoaffective disorder, chronic condition: previously taking both Seroquel 100 mg twice daily (although notably on Seroquel 150mg TID in 2014) and haloperidol 2mg PO BID and 25 mg IM monthly. Consulted psychiatry did not feel that delirium is related to his psychotropic medications. ok to use Haldol 2mg PEG BID, will wean off Effexor (changed to daily for a week then stop) (9) Psychosis: He has remained ventilated with support now via tracheostomy which was placed on 01/14. Continue to be unable to determine delusion or hallucinations given dementia and current cognitive state. (10) Dementia: Noted history of stroke with old left cerebral infarct. Although Alzheimer's noted on prior problem list Pt has been non functional at SNF for some time and has contracture of his right had that is pre hospital add baclofen for muscle spasms (11) Coronary artery disease: Unclear history of this. No prior stents or CABG Echocardiogram performed 01/03 shows normal EF, severe aortic stenosis. (12) Diabetes: HbA1C 6.6 Continue Novolog correction factor for now, plus scheduled lantus given reliable calorie intake (13) Hyperlipidemia: Hold simvastatin while NPO (14) GERD (gastroesophageal reflux disease): Now on Pepcid via his NG tube (15) Chronic prescription opiate use: Fentanyl patch removed on admission On chronic opiates for right foot and right hand pain.( hand contractures) Also taking Meloxicam 15mg QAM and Garber Q6H OFE as per prior documentation back on Fentanyl patch, change every 72 hours reduce dose tomorrow (16) Peripheral vascular disease: Noted history of this. Not on antiplatelets are noted above. Holding simvastatin while NPO and lethargic. (17) Chronic gout: previously on allopurinol (18) Seizure disorder: Valproic acid and Keppra levels ordered (although notably these have previously been normal or low). Mya with neurology oversight after apparent seizure during weaning trial 01/13 pevious EEG - non-seizure activity noted despite head tremor during EEG. Very mild generalized slowing represents a very mild encephalopathy. Dr. 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 Suspect from prior stroke in setting of chronic anti-psychotic use. Consult neurology -is following and adjusting antiepileptic medications (21) Depression: previously on venlafaxine (22) DVT prophylaxis: lovenox daily Patient's brother who is only next of kin we can identify. The borther expressed during family meeting 01/14, that there are strong yazidi overtones regarding sanctity of life and living and as the next of kin, Octaviano, feels he cannot determine end of life, he is comfortable making the pt DNR at this time and did consent to a tracheostomy and PICC line now has PEG in placed for hydration and nutrition and medications will then need placement, may require LTACH, doubt local SNF could accommodate his current needs might get into LTACH tomorrow Admission and Anticipated Discharge Date Admission Date: January 04, 2020 Subjective patient stable, no acute events no labs today, will check tomorrow d/w CM, still working on LTACH, should have answer tomorrow about insurance authorization he is more alert today, per RN he can be a little restless and agitated at times Ativan worked okay last night d/w Dr. Oliveira, she increased Keppra to 750mg BID can try some Baclofen for muscle spasticity she advises against chronic opiate such as Fentanyl patch can try to wean back on dosing, will change to 50mcg tomorrow Review of Systems Review of Systems: Unobtainable due to cognitive status Physical Exam Constitutional: + ill appearing, comfortable and + lethargic Eyes: PERRL, conjunctivae normal, anicteric sclerae ENMT: external ear and nose normal, oropharynx normal Neck: trachea midline, no thyromegaly (tracheostomy midline) Respiratory: normal respiratory effort, lungs clear to auscultation (decreased breath sounds bases) Cardiovascular: RRR, no murmur, no edema Gastrointestinal (Abdomen): normal bowel sounds, soft, nontender, no hepatosplenomegaly Musculoskeletal: Head/Neck/Chest: normocephalic, head atraumatic and neck supple Extremities: + abnormal strength (generalized weakness, moving extremities) Skin: no rashes, warm and dry Neurologic: CN's II-XI intact bilaterally, deep tendon reflexes 2+ bilaterally, moves all extremities, + focal motor deficit (contractures) and awake Speech / Cognition: + abnormal speech (non verbal) Motor/Sensory: + abnormal movement Psychiatric: Orientation: + not alert and + not oriented x 3 Lymphatic: no cervical or axillary lymphadenopathy Results & Data Results & Data ([facility]) Vital Signs (Past 12 Hours) Vital Signs Temp Pulse Pulse Resp BP Pulse Ox 01/21/20 15:12 71 16 98 01/21/20 15:10 37.0 C 82 18 129/73 97 01/21/20 11:21 89 18 92 01/21/20 11:20 37.4 C 92 H 18 150/66 H 93 01/21/20 08:00 76 01/21/20 07:34 89 18 92 01/21/20 07:30 37.2 C 72 18 143/77 H 93 Medications Administered Current Inpatient Medications Acetaminophen (Ofirmev) 1,000 mg IV Q6H PRN PRN Reason: Pain or Fever Stop: 01/23/20 20:12 Last Admin: 01/20/20 20:52 Dose: 1,000 mg Documented by: Albuterol (Duoneb) 3 ml NEB QIDR [facility] Stop: 02/04/20 06:59 Last Admin: 01/21/20 19:50 Dose: 3 ml Documented by: Aspirin (Aspirin Chew) 81 mg PO DAILY [facility] Stop: 02/06/20 09:59 Last Admin: 01/21/20 09:24 Dose: 81 mg Documented by: Baclofen (Lioresal) 10 mg PO BID PRN PRN Reason: Muscle Spasm Stop: 02/20/20 20:59 Dextrose (Dextrose 50%) 25 - 50 ml IV UD PRN; Protocol PRN Reason: Hypoglycemia Protocol Stop: 02/03/20 20:13 Last Admin: 01/17/20 21:01 Dose: 25 ml Documented by: Divalproex Sodium (Depakote Sprinkle) 500 mg PO BID [facility] Stop: 02/20/20 08:59 Last Admin: 01/21/20 20:42 Dose: 500 mg Documented by: Enoxaparin Sodium (Lovenox) 40 mg SQ DAILY@1400 [facility] Stop: 02/06/20 13:59 Last Admin: 01/21/20 12:55 Dose: 40 mg Documented by: Enteral Nutritional Formula (Impact 1.0 Rohit) 1,000 ml PEG UD PRN; Protocol PRN Reason: TUBE FEEDS Stop: 02/05/20 11:49 Last Admin: 01/21/20 16:42 Dose: 1,000 ml Documented by: Fentanyl (Duragesic) 25 mcg TD Q72H [facility] Stop: 02/01/20 10:59 Last Admin: 01/21/20 10:47 Dose: 25 mcg Documented by: Glucagon (Glucagen) 1 mg SQ UD PRN; Protocol PRN Reason: Hypoglycemia Protocol Stop: 02/03/20 20:13 Glucose (Dex4 Glucose) 4 - 8 tabs PO UD PRN; Protocol PRN Reason: Hypoglycemia Protocol Stop: 02/03/20 20:13 Glucose (Glucose 40%) 15 - 30 gm PO UD PRN; Protocol PRN Reason: Hypoglycemia Protocol Stop: 02/03/20 20:13 Haloperidol (Haldol) 2 mg PO BID OFE Stop: 02/20/20 20:59 Last Admin: 01/21/20 20:42 Dose: 2 mg Documented by: Heparin Sodium (Beef Lung) (Heparin Sod 10 Unit/Ml Flush) 5 ml FLUSH PRN PRN PRN Reason: Flush Stop: 02/14/20 17:12 Lorazepam (Ativan) 1 mg in 2 mls @ 2 mls/min IV Q4H PRN PRN Reason: Sedation Stop: 02/12/20 15:21 Last Admin: 01/20/20 23:11 Dose: 2 mls/min Documented by: Ceftolozane/Tazobactam 3,000 (mg/ Dextrose) 122.8 mls @ 111.4 mls/hr IV Q8H OFE Stop: 01/23/20 23:59 Last Infusion: 01/21/20 19:03 Dose: Infused Documented by: Caspofungin 50 mg/ Sodium (Chloride) 260 mls @ 250 mls/hr IV Q24H OFE; Protocol Stop: 01/30/20 20:03 Last Infusion: 01/21/20 20:03 Dose: Infused Documented by: Levetiracetam 750 mg/ Sodium (Chloride) 107.5 mls @ 420 mls/hr IV BID OFE Stop: 02/20/20 20:59 Last Infusion: 01/21/20 22:21 Dose: Infused Documented by: Insulin Aspart (Novolog Flexpen) 0 units SC Q4 OFE; Protocol Stop: 02/03/20 20:44 Last Admin: 01/21/20 20:42 Dose: 4 units Documented by: Insulin Glargine (Lantus Solostar Pen) 0 units SC DAILY@1700 OFE; Protocol Stop: 02/20/20 16:59 Last Admin: 01/21/20 16:44 Dose: 8 units Documented by: Lansoprazole (Prevacid) 15 mg PO QAM OFE Stop: 02/12/20 08:59 Last Admin: 01/21/20 09:18 Dose: 15 mg Documented by: Miscellaneous (Carbohydrates For Hypoglycemia) 15 - 30 gm PO UD PRN PRN Reason: Hypoglycemia Protocol Stop: 02/03/20 20:13 Miscellaneous (Fentanyl Patch Remove & Waste) 1 ea N/A Q72H OFE Stop: 02/20/20 10:58 Last Admin: 01/21/20 10:48 Dose: 1 ea Documented by: Miscellaneous (Fentanyl Patch Check Placement) 1 ea N/A QS OFE Stop: 02/17/20 15:59 Last Admin: 01/21/20 15:34 Dose: 1 ea Documented by: Miscellaneous Information (Consult Glycemic Management Pharmacy) 1 ea N/A UD PRN PRN Reason: Consult Stop: 02/16/20 08:55 Sterile Water (Tube Feeding Water Flush) 50 ea GT Q8H [facility] Stop: 02/18/20 10:59 Last Admin: 01/21/20 19:02 Dose: 50 ea Documented by: Venlafaxine HCl (Effexor) 37.5 mg PO DAILY OFE Stop: 02/20/20 08:59 Last Admin: 01/21/20 09:17 Dose: 37.5 mg Documented by: PG Care Time/CCT Total # of Minutes Spent Total Time Spent with Patient: Total time spent is greater than 50% in coordination of care (as documented) at patient's floor/unit and/or counseling patient: Coding Level of Care Code 38825 Subseq Hosp Care Lvl 2 Diagnoses Sepsis associated hypotension A41.9; I95.9 Acute respiratory failure with hypoxia J96.01 Pneumonia J18.9 Urinary tract infection N39.0 Acute kidney injury N17.9 Hypernatremia E87.0 Altered mental state R41.82 Schizoaffective disorder, chronic condition F25.8 Psychosis F29 Dementia F03.90 Coronary artery disease I25.10 Diabetes E11.9 Hyperlipidemia E78.5 GERD (gastroesophageal reflux disease) K21.9 Chronic prescription opiate use Z79.891 Peripheral vascular disease I73.9 Chronic gout [id number] Seizure disorder G40.909 Muscle weakness M62.81 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
[2020-01-21] MEDS: IMPACT LIQD 1.0 CAL 1,000 ML BAG PEG PRN (16:42)
[2020-01-21] MEDS ORDERED: BACLOFEN 10 MG TAB PO PRN (17:01)
[2020-01-21] MEDS: CASPOFUNGIN 50 MG in SODIUM CHLORIDE 0.9% 250 ML IV SCH (18:57)
[2020-01-21] MEDS: haloperidoL 1 MG TAB PO SCH (20:42)
[2020-01-21] MEDS: levETIRAcetam 750 MG in 0.9 % SODIUM CHLORIDE 100 ML IV SCH (21:23)
[2020-01-22] MEDS: CHECK FENTANYL PATCH PLACEMENT SCH ×4 (00:39→23:53)
[2020-01-22] MEDS: INSULIN ASPART 100 UNITS/ML 3 ML PEN SC SCH ×6 (00:39→21:01)
[2020-01-22] MEDS: CEFTOLOZANE/TAZOBACTAM 3,000 MG in DEXTROSE 5% 100 ML IV SCH ×3 (00:44→16:13)
[2020-01-22] MEDS: TUBE FEEDING WATER FLUSH GT SCH ×3 (02:22→19:04)
[2020-01-22] MEDS: ALBUT/IPRATROP 3MG/0.5MG NEB 3 ML VIAL NEB SCH ×4 (07:15→19:11)
[2020-01-22] MEDS: IMPACT LIQD 1.0 CAL 1,000 ML BAG PEG PRN (08:42)
[2020-01-22] MEDS: DIVALPROEX SODIUM SPRINKLE 125 MG CAP PO SCH ×2 (08:46→20:59)
[2020-01-22] MEDS: VENLAFAXINE HCL 37.5 MG TAB PO SCH ×2 (08:47→21:00)
[2020-01-22] MEDS: LANSOPRAZOLE 15 MG SOLTAB PO SCH (08:48)
[2020-01-22 08:58] LABS: BUN Creatinine Ratio 30.4 (10-20); Calcium 8.8 mg/dl (8.5-10.1); Creatinine Clr Calc Pharmacy 82.4 ml/min; Est GFR (African American) 104.7; Est GFR (Non-African American) 90.3; Potassium 3.4 mmol/L (3.5-5.1)
[2020-01-22] MEDS: ASPIRIN 81 MG CHEW PO SCH (09:08)
[2020-01-22] MEDS: haloperidoL 1 MG TAB PO SCH ×2 (09:29→20:58)
[2020-01-22] MEDS: levETIRAcetam 750 MG in 0.9 % SODIUM CHLORIDE 100 ML IV SCH ×2 (10:02→21:04)
[2020-01-22] MEDS ORDERED: fentaNYL 12 MCG/HR TDSY TD SCH (11:19)
[2020-01-22] MEDS: fentaNYL 12 MCG/HR TDSY TD SCH (12:07)
[2020-01-22] MEDS: ENOXAPARIN INJ 40 MG/0.4 ML SYR SQ SCH (13:25)
[2020-01-22] MEDS: INSULIN GLARGINE SOLOSTAR 100 UNITS/ML 3 ML PEN SQ SCH (13:26)
--- NOTE | 2020-01-22 16:32 | Hospitalist Progress Note ---
Date of Service January 22, 2020 Assessment & Plan (1) Sepsis associated hypotension: gram negatives in blood and urine growing quinalone resistant E Coli resolved now ESBL Klebsiella in sputum, antibiotics changed to Ceftolazone tazobactam after sputum grew ESBL Klebsiella no fever, check CBC tomorrow end date for Ceftolazone is 01/22 (tomorrow) PICC pulled for fever has peripheral IV, should be sufficient for the Ceftolazone but will need US guided line for Caspofungin plan to get US guided prior to discharge, this or Saturday depending on IV team availability (2) Acute respiratory failure with hypoxia: Pt was intubated and ventilated, managed by icu team Poor response attempted weaning trials concern for persistent ventilation required. weaning trial of 01/13 resulted in seizure like activity Concerns for recurrent aspiration and protecting airway Discussion with family and the critical care attending on Sunday 01/14 with decision for DNR tracheostomy placed 01/14 now with tracheostomy, tolerating blow by oxygen on 01/18, essentially off ventilator support continue to monitor, stable on 6L today (3) Pneumonia: Aspiration vs. Health-care acquired (in shelter setting). ESBL klebsiella grew, now on ceftolzone/tazobactam WBC elevated but stable now growing Sherry glabrata treat with Caspofungin for two weeks total, today is day 5 (4) Urinary tract infection: treated (5) Acute kidney injury: Suspected prerenal due to acute infection, dehydration (poor oral intake) and meloxicam use. Resolved Continue holding meloxicam. Patient is on tube feeds resolved hypernatremia. (6) Hypernatremia: Increased on admission due to NSS given as boluses in ER and to some extent LR maintenance. Unlikely DI given no polyuria noted. Resolved, Na is 136 today repeat BMP tomorrow, on tube feeds and free water flushes at this time (7) Altered mental state: metabolic encephalopathy CT head negative for acute intracranial abnormality EEG unremarkable (8) Schizoaffective disorder, chronic condition: previously taking both Seroquel 100 mg twice daily (although notably on Seroquel 150mg TID in 2014) and haloperidol 2mg PO BID and 25 mg IM monthly. Consulted psychiatry did not feel that delirium is related to his psychotropic medications. ok to use Haldol 2mg PEG BID, will continue Effexor 37.5mg BID (9) Psychosis: He has remained ventilated with support now via tracheostomy which was placed on 01/14. Continue to be unable to determine delusion or hallucinations given dementia and current cognitive state. (10) Dementia: Noted history of stroke with old left cerebral infarct. Although Alzheimer's noted on prior problem list Pt has been non functional at SNF for some time and has contracture of his right had that is pre hospital add baclofen for muscle spasms, tolerating wel (11) Coronary artery disease: Unclear history of this. No prior stents or CABG Echocardiogram performed 01/03 shows normal EF, severe aortic stenosis. (12) Diabetes: HbA1C 6.6 Continue Novolog correction factor for now, plus scheduled lantus given reliable calorie intake (13) Hyperlipidemia: Hold simvastatin while NPO (14) GERD (gastroesophageal reflux disease): Now on Pepcid via his NG tube (15) Chronic prescription opiate use: Fentanyl patch removed on admission On chronic opiates for right foot and right hand pain.( hand contractures) Also taking Meloxicam 15mg QAM and Hyder Q6H OFE as per prior documentation back on Fentanyl patch, change every 72 hours reduce dose to 12mcg daily, try to stop in a week (16) Peripheral vascular disease: Noted history of this. Not on antiplatelets are noted above. Holding simvastatin while NPO and lethargic. (17) Chronic gout: previously on allopurinol (18) Seizure disorder: Valproic acid and Keppra levels ordered (although notably these have previously been normal or low). Kelenkara with neurology oversight after apparent seizure during weaning trial 01/13 pevious EEG - non-seizure activity noted despite head tremor during EEG. Very mild generalized slowing represents a very mild encephalopathy. Dr. 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 Suspect from prior stroke in setting of chronic anti-psychotic use. Consult neurology -is following and adjusting antiepileptic medications (21) Depression: previously on venlafaxine (22) DVT prophylaxis: lovenox daily Patient's brother who is only next of kin we can identify. The borther expressed during family meeting 01/14, that there are strong mormonism overtones regarding sanctity of life and living and as the next of kin, Octaviano, feels he cannot determine end of life, he is comfortable making the pt DNR at this time and did consent to a tracheostomy and PICC line now has PEG in placed for hydration and nutrition and medications will then need placement, may require LTACH, doubt local SNF could accommodate his current needs plan for LTACH next week Admission and Anticipated Discharge Date Admission Date: January 04, 2020 Subjective patient resting peacefully, no issues per nursing tolerating tube feeds, less rigidity with Baclofen, will make it scheduled labs reviewed, ammonia < 10, K low at 3.4, Cr stable at 0.79 vitals stable spoke with lead case manager, patient accepted to LTACH for Saturday Review of Systems Review of Systems: Unobtainable due to cognitive status Physical Exam Constitutional: + ill appearing, comfortable and + lethargic Eyes: PERRL, conjunctivae normal, anicteric sclerae ENMT: external ear and nose normal, oropharynx normal Neck: trachea midline, no thyromegaly (tracheostomy midline) Respiratory: normal respiratory effort, lungs clear to auscultation (decreased breath sounds bases) Cardiovascular: RRR, no murmur, no edema Gastrointestinal (Abdomen): normal bowel sounds, soft, nontender, no hepatosplenomegaly Musculoskeletal: Head/Neck/Chest: normocephalic, head atraumatic and neck supple Extremities: + abnormal strength (generalized weakness, moving extremities) Skin: no rashes, warm and dry Neurologic: CN's II-XI intact bilaterally, deep tendon reflexes 2+ bilaterally , moves all extremities, + focal motor deficit (contractures) and awake Speech / Cognition: + abnormal speech (non verbal) Motor/Sensory: + abnormal movement Psychiatric: Orientation: + not alert and + not oriented x 3 Lymphatic: no cervical or axillary lymphadenopathy Results & Data Results & Data ([facility]) Vital Signs (Past 12 Hours) Vital Signs Temp Pulse Pulse Resp BP Pulse Ox 01/22/20 15:46 37.1 C 65 22 155/79 H 95 01/22/20 15:19 64 14 98 01/22/20 11:27 37.4 C 78 18 146/74 H 94 01/22/20 11:24 72 18 94 01/22/20 08:00 81 01/22/20 07:27 37.4 C 82 20 142/79 H 97 01/22/20 07:18 78 18 96 01/22/20 05:06 37.4 C 73 18 120/66 94 Laboratory Results Laboratory Results - last 24 hr 01/21/20 01/21/20 01/22/20 16:35 20:18 00:06 Sodium Potassium Chloride Carbon Dioxide Anion Gap BUN Creatinine Est Cr Clr Drug Dosing Est GFR ( Amer) Est GFR (Non-Af Amer) BUN/Creatinine Ratio Glucose POC Glucose 145 H 187 H 185 H Calcium Ammonia 01/22/20 01/22/20 01/22/20 05:08 07:39 08:19 Sodium 136 Potassium 3.4 L Chloride 100 Carbon Dioxide 28 Anion Gap 8.0 BUN 24 H Creatinine 0.79 Est Cr Clr Drug Dosing 82.4 Est GFR ( Amer) 104.7 Est GFR (Non-Af Amer) 90.3 BUN/Creatinine Ratio 30.4 H Glucose 178 H POC Glucose 169 H 201 H Calcium 8.8 Ammonia 01/22/20 01/22/20 08:19 11:37 Sodium Potassium Chloride Carbon Dioxide Anion Gap BUN Creatinine Est Cr Clr Drug Dosing Est GFR ( Amer) Est GFR (Non-Af Amer) BUN/Creatinine Ratio Glucose POC Glucose 182 H Calcium Ammonia < 10.0 L Medications Administered Current Inpatient Medications Acetaminophen (Ofirmev) 1,000 mg IV Q6H PRN PRN Reason: Pain or Fever Stop: 01/23/20 20:12 Last Admin: 01/20/20 20:52 Dose: 1,000 mg Documented by: Albuterol (Duoneb) 3 ml NEB QIDR [facility] Stop: 02/04/20 06:59 Last Admin: 01/22/20 15:18 Dose: 3 ml Documented by: Aspirin (Aspirin Chew) 81 mg PO DAILY OFE Stop: 02/06/20 09:59 Last Admin: 01/22/20 09:08 Dose: 81 mg Documented by: Baclofen (Lioresal) 10 mg PO BID PRN PRN Reason: Muscle Spasm Stop: 02/20/20 20:59 Dextrose (Dextrose 50%) 25 - 50 ml IV UD PRN; Protocol PRN Reason: Hypoglycemia Protocol Stop: 02/03/20 20:13 Last Admin: 01/17/20 21:01 Dose: 25 ml Documented by: Divalproex Sodium (Depakote Sprinkle) 500 mg PO BID [facility] Stop: 02/20/20 08:59 Last Admin: 01/22/20 08:46 Dose: 500 mg Documented by: Enoxaparin Sodium (Lovenox) 40 mg SQ DAILY@1400 [facility] Stop: 02/06/20 13:59 Last Admin: 01/22/20 13:25 Dose: 40 mg Documented by: Enteral Nutritional Formula (Impact 1.0 Rohit) 1,000 ml PEG UD PRN; Protocol PRN Reason: TUBE FEEDS Stop: 02/05/20 11:49 Last Admin: 01/22/20 08:42 Dose: 1,000 ml Documented by: Fentanyl (Duragesic) 12 mcg TD Q72H [facility] Stop: 02/05/20 11:59 Last Admin: 01/22/20 12:07 Dose: 12 mcg Documented by: Glucagon (Glucagen) 1 mg SQ UD PRN; Protocol PRN Reason: Hypoglycemia Protocol Stop: 02/03/20 20:13 Glucose (Dex4 Glucose) 4 - 8 tabs PO UD PRN; Protocol PRN Reason: Hypoglycemia Protocol Stop: 02/03/20 20:13 Glucose (Glucose 40%) 15 - 30 gm PO UD PRN; Protocol PRN Reason: Hypoglycemia Protocol Stop: 02/03/20 20:13 Haloperidol (Haldol) 2 mg PO BID [facility] Stop: 02/20/20 20:59 Last Admin: 01/22/20 09:29 Dose: 2 mg Documented by: Heparin Sodium (Beef Lung) (Heparin Sod 10 Unit/Ml Flush) 5 ml FLUSH PRN PRN PRN Reason: Flush Stop: 02/14/20 17:12 Lorazepam (Ativan) 1 mg in 2 mls @ 2 mls/min IV Q4H PRN PRN Reason: Sedation Stop: 02/12/20 15:21 Last Admin: 01/20/20 23:11 Dose: 2 mls/min Documented by: Ceftolozane/Tazobactam 3,000 (mg/ Dextrose) 122.8 mls @ 111.4 mls/hr IV Q8H [facility] Stop: 01/23/20 23:59 Last Admin: 01/22/20 16:13 Dose: 111.4 mls/hr Documented by: Caspofungin 50 mg/ Sodium (Chloride) 260 mls @ 250 mls/hr IV Q24H [facility]; Protocol Stop: 01/30/20 20:03 Last Infusion: 01/21/20 20:03 Dose: Infused Documented by: Levetiracetam 750 mg/ Sodium (Chloride) 107.5 mls @ 420 mls/hr IV BID [facility] Stop: 02/20/20 20:59 Last Infusion: 01/22/20 10:21 Dose: Infused Documented by: Insulin Aspart (Novolog Flexpen) 0 units SC Q4 [facility]; Protocol Stop: 02/03/20 20:44 Last Admin: 01/22/20 12:08 Dose: 4 units Documented by: Insulin Glargine (Lantus Solostar Pen) 10 units SQ DAILY [facility] Stop: 02/21/20 12:29 Last Admin: 01/22/20 13:26 Dose: 10 units Documented by: Lansoprazole (Prevacid) 15 mg PO QAM [facility] Stop: 02/12/20 08:59 Last Admin: 01/22/20 08:48 Dose: 15 mg Documented by: Miscellaneous (Carbohydrates For Hypoglycemia) 15 - 30 gm PO UD PRN PRN Reason: Hypoglycemia Protocol Stop: 02/03/20 20:13 Miscellaneous (Fentanyl Patch Remove & Waste) 1 ea N/A Q72H [facility] Stop: 02/24/20 11:59 Miscellaneous (Fentanyl Patch Check Placement) 1 ea N/A QS [facility] Stop: 02/21/20 15:59 Last Admin: 01/22/20 16:02 Dose: 1 ea Documented by: Miscellaneous Information (Consult Glycemic Management Pharmacy) 1 ea N/A UD PRN PRN Reason: Consult Stop: 02/16/20 08:55 Sterile Water (Tube Feeding Water Flush) 50 ea GT Q8H OFE Stop: 02/18/20 10:59 Last Admin: 01/22/20 10:48 Dose: 50 ea Documented by: Venlafaxine HCl (Effexor) 37.5 mg PO BID [facility] Stop: 02/21/20 20:59 PG Care Time/CCT Total # of Minutes Spent Total Time Spent with Patient: Total time spent is greater than 50% in coordination of care (as documented) at patient's floor/unit and/or counseling patient: Coding Level of Care Code 08277 Subseq Hosp Care Lvl 3 Diagnoses Sepsis associated hypotension A41.9; I95.9 Acute respiratory failure with hypoxia J96.01 Pneumonia J18.9 Urinary tract infection N39.0 Acute kidney injury N17.9 Hypernatremia E87.0 Altered mental state R41.82 Schizoaffective disorder, chronic condition F25.8 Psychosis F29 Dementia F03.90 Coronary artery disease I25.10 Diabetes E11.9 Hyperlipidemia E78.5 GERD (gastroesophageal reflux disease) K21.9 Chronic prescription opiate use Z79.891 Peripheral vascular disease I73.9 Chronic gout [id number] Seizure disorder G40.909 Muscle weakness M62.81 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
[2020-01-22] MEDS: POLYETHYLENE (MIRALAX) 17 GM PACK PEG SCH (17:15)
[2020-01-22 18:44] LABS: Fungitell (1-3)-B-D-Glucan 378 pg/mL
[2020-01-22] MEDS: CASPOFUNGIN 50 MG in SODIUM CHLORIDE 0.9% 250 ML IV SCH (19:00)
[2020-01-23] MEDS: INSULIN ASPART 100 UNITS/ML 3 ML PEN SC SCH ×6 (00:10→22:46)
[2020-01-23] MEDS: CEFTOLOZANE/TAZOBACTAM 3,000 MG in DEXTROSE 5% 100 ML IV SCH ×3 (00:16→16:04)
[2020-01-23] MEDS: IMPACT LIQD 1.0 CAL 1,000 ML BAG PEG PRN (00:35)
[2020-01-23] MEDS: ACETAMINOPHEN 1000 MG/100 ML IV IV PRN (01:59)
[2020-01-23] MEDS: TUBE FEEDING WATER FLUSH GT SCH ×3 (02:15→18:09)
[2020-01-23 07:17] LABS: Hematocrit (blood only) 28.7 % (42-52); Hemoglobin 9.7 g/dL (14.0-18.0); Mean Corpuscular Hemoglobin 30.9 pg (25-34); Mean Corpuscular Hgb Conc 33.8 g/dL (32-36); Mean Corpuscular Volume 91.4 fL (80-100); Platelet Count 310 K/uL (130-400); RDW Coefficient of Variation 13.6 % (11.5-14.5); RDW Standard Deviation 44.8 fL (36.4-46.3); Red Blood Count 3.14 M/uL (4.7-6.1); White Blood Count 12.84 K/uL (4.8-10.8)
[2020-01-23] MEDS: ALBUT/IPRATROP 3MG/0.5MG NEB 3 ML VIAL NEB SCH ×4 (07:53→19:19)
[2020-01-23 07:59] LABS: ANC (manual) 11.27 K/uL (1.4-6.5); Basophils # (manual) 0.12 K/uL (0-0.2); Basophils % (manual) 0.9 %; Lymphocytes # (manual) 0.78 K/uL (1.2-3.4); Lymphocytes % (manual) 6.1 %; Monocytes # (manual) 0.33 K/uL (0.11-0.59); Monocytes % (manual) 2.6 %; Myelocytes # (manual) 0.12 K/uL (0-0); Myelocytes % (manual) 0.9 %; Neutrophils # (manual) 11.27 K/uL (1.4-6.5); Neutrophils % (manual) 87.8 %; Plasma Cells # (manual) 0.22 K/uL (0-0); Plasma Cells % (manual) 1.7 %
[2020-01-23 08:00] LABS: BUN Creatinine Ratio 29.7 (10-20); Calcium 8.9 mg/dl (8.5-10.1); Creatinine Clr Calc Pharmacy 85.1 ml/min; Est GFR (African American) 105.8; Est GFR (Non-African American) 91.3; Magnesium 1.7 mg/dl (1.8-2.4); Phosphorus 1.8 mg/dl (2.5-4.9); Potassium 3.5 mmol/L (3.5-5.1)
[2020-01-23] MEDS: levETIRAcetam 750 MG in 0.9 % SODIUM CHLORIDE 100 ML IV SCH (08:41)
[2020-01-23] MEDS: CHECK FENTANYL PATCH PLACEMENT SCH ×2 (08:45→16:04)
[2020-01-23] MEDS: ASPIRIN 81 MG CHEW PO SCH (08:46)
[2020-01-23] MEDS: INSULIN GLARGINE SOLOSTAR 100 UNITS/ML 3 ML PEN SQ SCH (08:47)
[2020-01-23] MEDS: BACLOFEN 10 MG TAB PO SCH ×2 (08:49→22:49)
[2020-01-23] MEDS: VENLAFAXINE HCL 37.5 MG TAB PO SCH ×2 (08:49→22:49)
[2020-01-23] MEDS: DIVALPROEX SODIUM SPRINKLE 125 MG CAP PO SCH ×2 (08:49→22:47)
[2020-01-23] MEDS: haloperidoL 1 MG TAB PO SCH ×2 (08:52→22:49)
[2020-01-23] MEDS: POLYETHYLENE (MIRALAX) 17 GM PACK PEG SCH (08:53)
[2020-01-23] MEDS: LANSOPRAZOLE 15 MG SOLTAB PO SCH (08:53)
--- NOTE | 2020-01-23 09:08 | Pharmacy Report ---
Pharmacy Glycemic Short Note 2 - Date of Service January 23, 2020 - Glycemic Short BSG Results (Last 24 hours): 01/22/20 01/22/20 01/22/20 11:37 16:30 16:55 Glucose POC Glucose 182 H 181 H 188 H 01/22/20 01/22/20 01/23/20 20:32 23:48 03:25 Glucose POC Glucose 160 H 139 H 154 H 01/23/20 01/23/20 06:33 07:37 Glucose 150 H POC Glucose 166 H OUTPATIENT ANTIDIABETIC REGIMEN: * Lantus 10 units SQ daily * A1c = 6.6% 01/05/20 ASSESSMENT: * Tube feeds (Impact 1.0 britney) at goal rate of 70 mL/hr - providing 36 grams of carbohydrates over 4 hours * BSGs reasonably well-controlled yesterday - ranging 139-201 mg/dL * Patient received 33 units of insulin yesterday - 10 units of basal and 23 units of prandial/correctional * Continues on Zerbaxa (stop date is today) and caspofungin for treatment of multi-drug resistant pneumonia PLAN FOR INPATIENT GLYCEMIC CONTROL: * Basal insulin * Lantus - continue 10 units SC qAM * Consider increasing basal insulin tomorrow morning dependent on BSG * Bolus insulin - no change * NovoLog per scale Q 4hrs * Goal Range: Low 130 mg/dL - High 160 mg/dL * Correction Factor: 30 mg/dL/unit * Nutritional / Prandial insulin per carb ratio of 1 unit per 12 grams CHO consumed PLAN FOR DISCHARGE: * to be determined - will ultimately depend upon method of feeding on discharge
[2020-01-23] MEDS ORDERED: POTASSIUM PHOS 3 MMOL/1 ML INFUSION IV STA (11:49)
--- NOTE | 2020-01-23 11:51 | Hospitalist Progress Note ---
Date of Service January 23, 2020 Assessment & Plan (1) Sepsis associated hypotension: gram negatives in blood and urine growing quinalone resistant E Coli resolved now ESBL Klebsiella in sputum, antibiotics changed to Ceftolazone tazobactam after sputum grew ESBL Klebsiella no fever, check CBC tomorrow end date for Ceftolazone is 01/22 today PICC pulled for fever has peripheral IV, should be sufficient for the Ceftolazone but will need US guided line for Caspofungin plan to get US guided prior to discharge, this or Saturday depending on IV team availability (2) Acute respiratory failure with hypoxia: Pt was intubated and ventilated, managed by icu team Poor response attempted weaning trials concern for persistent ventilation required. weaning trial of 01/13 resulted in seizure like activity Concerns for recurrent aspiration and protecting airway Discussion with family and the critical care attending on Sunday 01/14 with decision for DNR tracheostomy placed 01/14 now with tracheostomy, tolerating blow by oxygen on 01/18, essentially off ventilator support continue to monitor, stable on 6L today (3) Pneumonia: Aspiration vs. Health-care acquired (in [facility] setting). ESBL klebsiella grew, now on ceftolzone/tazobactam WBC elevated but going down to 12k low grade temp this evening 37.6 will get CXR in the morning, monitor further for fever now growing Sherry glabrata treat with Caspofungin for two weeks total, today is day 6 (4) Urinary tract infection: treated low grade temp, check UA and urine culture if appropriate (5) Acute kidney injury: Suspected prerenal due to acute infection, dehydration (poor oral intake) and meloxicam use. Resolved Continue holding meloxicam. Patient is on tube feeds resolved hypernatremia. (6) Hypernatremia: Increased on admission due to NSS given as boluses in ER and to some extent LR maintenance. Unlikely DI given no polyuria noted. Resolved, Na is 135 today repeat BMP tomorrow, on tube feeds and free water flushes at this time (7) Altered mental state: metabolic encephalopathy CT head negative for acute intracranial abnormality EEG unremarkable (8) Schizoaffective disorder, chronic condition: previously taking both Seroquel 100 mg twice daily (although notably on Seroquel 150mg TID in 2014) and haloperidol 2mg PO BID and 25 mg IM monthly. Consulted psychiatry did not feel that delirium is related to his psychotropic medications. ok to use Haldol 2mg PEG BID, will continue Effexor 37.5mg BID (9) Psychosis: He has remained ventilated with support now via tracheostomy which was placed on 01/14. Continue to be unable to determine delusion or hallucinations given dementia and current cognitive state. (10) Dementia: Noted history of stroke with old left cerebral infarct. Although Alzheimer's noted on prior problem list Pt has been non functional at SNF for some time and has contracture of his right had that is pre hospital add baclofen for muscle spasms, tolerating wel (11) Coronary artery disease: Unclear history of this. No prior stents or CABG Echocardiogram performed 01/03 shows normal EF, severe aortic stenosis. (12) Diabetes: HbA1C 6.6 Continue Novolog correction factor for now, plus scheduled lantus given reliable calorie intake (13) Hyperlipidemia: Hold simvastatin while NPO (14) GERD (gastroesophageal reflux disease): Now on Pepcid via his NG tube (15) Chronic prescription opiate use: Fentanyl patch removed on admission On chronic opiates for right foot and right hand pain.( hand contractures) Also taking Meloxicam 15mg QAM and [place] Q6H OFE as per prior documentation back on Fentanyl patch, change every 72 hours reduce dose to 12mcg daily, try to stop in a week (16) Peripheral vascular disease: Noted history of this. Not on antiplatelets are noted above. Holding simvastatin while NPO and lethargic. (17) Chronic gout: previously on allopurinol (18) Seizure disorder: Valproic acid and Keppra levels ordered (although notably these have previously been normal or low). Mya with neurology oversight after apparent seizure during weaning trial 01/13 pevious EEG - non-seizure activity noted despite head tremor during EEG. Very mild generalized slowing represents a very mild encephalopathy. Dr. 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 Suspect from prior stroke in setting of chronic anti-psychotic use. Consult neurology -is following and adjusting antiepileptic medications (21) Depression: previously on venlafaxine (22) DVT prophylaxis: lovenox daily Patient's brother who is only next of kin we can identify. The borther expressed during family meeting 01/14, that there are strong confucianism over tones regarding sanctity of life and living and as the next of kin, Octaviano, feels he cannot determine end of life, he is comfortable making the pt DNR at this time and did consent to a tracheostomy and PICC line now has PEG in placed for hydration and nutrition and medications will then need placement, may require LTACH, doubt local SNF could accommodate his current needs plan for LTACH next week (23) Hypomagnesemia: replaced with IV mag today (24) Hypophosphatemia: replace with potassium phosphate 21mmol repeat in the morning Admission and Anticipated Discharge Date Admission Date: January 04, 2020 Subjective patient is stable today, no acute events tolerating tube feeds, no signs of residual back up breathing stable on 6L via tracheostomy reviewed labs, WBC down to 12k, Hb 9.7 Cr is 0.77, Na 135, other electrolytes show low Mg and low Phos, will replace IV low grade temperature this afternoon Review of Systems Review of Systems: Unobtainable due to cognitive status Physical Exam Constitutional: + thin and comfortable; no acute distress Eyes: PERRL, conjunctivae normal, anicteric sclerae ENMT: external ear and nose normal, oropharynx normal Neck: trachea midline, no thyromegaly (tracheostomy midline) Respiratory: normal respiratory effort, lungs clear to auscultation (decreased breath sounds bases) Cardiovascular: RRR, no murmur, no edema Gastrointestinal (Abdomen): normal bowel sounds, soft, nontender, no hepat osplenomegaly Musculoskeletal: Head/Neck/Chest: normocephalic, head atraumatic and neck supple Extremities: + abnormal strength (generalized weakness, moving extremities) Skin: no rashes, warm and dry Neurologic: CN's II-XI intact bilaterally, deep tendon reflexes 2+ bilaterally, moves all extremities, + focal motor deficit (contractures) and awake Speech / Cognition: + abnormal speech (non verbal) Motor/Sensory: + abnormal movement Psychiatric: Orientation: + not alert and + not oriented x 3 Lymphatic: no cervical or axillary lymphadenopathy Results & Data Results & Data ([place]) Vital Signs (Past 12 Hours) Vital Signs Temp Pulse Pulse Resp BP BP Pulse Ox 01/23/20 11:45 36.7 C 83 20 154/85 H 95 01/23/20 11:36 93 H 18 94 01/23/20 07:54 93 H 18 94 01/23/20 07:25 84 01/23/20 07:20 37.1 C 72 18 133/78 97 01/23/20 06:30 36.8 C 01/23/20 04:00 36.6 C 73 18 125/70 91 01/22/20 23:59 37.3 C 65 18 135/64 92 Laboratory Results Laboratory Results - last 24 hr 01/17/20 01/22/20 01/22/20 12:22 16:30 16:55 WBC RBC Hgb Hct MCV MCH MCHC RDW Std Deviation RDW Coeff of Kasey Plt Count MPV Neutrophils % (Manual) Lymphocytes % (Manual) Monocytes % (Manual) Basophils % (Manual) Myelocytes % (Man) Plasma Cell % (Manual) Neutrophils # (Manual) Total Absolute Neuts Lymphocytes # (Manual) Total Abs Lymphocytes Monocytes # (Manual) Basophils # (Manual) Myelocytes # (Manual) Plasma Cell # (Manual) Sodium Potassium Chloride Carbon Dioxide Anion Gap BUN Creatinine Est Cr Clr Drug Dosing Est GFR ( Amer) Est GFR (Non-Af Amer) BUN/Creatinine Ratio Glucose POC Glucose 181 H 188 H Calcium Phosphorus Magnesium Beta-(1,3)-D-Glucan 378 H B-(1,3)-D-Glucan Intrp POSITIVE A 01/22/20 01/22/20 01/23/20 20:32 23:48 03:25 WBC RBC Hgb Hct MCV MCH MCHC RDW Std Deviation RDW Coeff of Kasey Plt Count MPV Neutrophils % (Manual) Lymphocytes % (Manual) Monocytes % (Manual) Basophils % (Manual) Myelocytes % (Man) Plasma Cell % (Manual) Neutrophils # (Manual) Total Absolute Neuts Lymphocytes # (Manual) Total Abs Lymphocytes Monocytes # (Manual) Basophils # (Manual) Myelocytes # (Manual) Plasma Cell # (Manual) Sodium Potassium Chloride Carbon Dioxide Anion Gap BUN Creatinine Est Cr Clr Drug Dosing Est GFR ( Amer) Est GFR (Non-Af Amer) BUN/Creatinine Ratio Glucose POC Glucose 160 H 139 H 154 H Calcium Phosphorus Magnesium Beta-(1,3)-D-Glucan B-(1,3)-D-Glucan Intrp 01/23/20 01/23/20 01/23/20 06:33 06:33 07:37 WBC 12.84 H RBC 3.14 L Hgb 9.7 L Hct 28.7 L MCV 91.4 MCH 30.9 MCHC 33.8 RDW Std Deviation 44.8 RDW Coeff of Kasey 13.6 Plt Count 310 MPV 9.0 Neutrophils % (Manual) 87.8 Lymphocytes % (Manual) 6.1 Monocytes % (Manual) 2.6 Basophils % (Manual) 0.9 Myelocytes % (Man) 0.9 Plasma Cell % (Manual) 1.7 Neutrophils # (Manual) 11.27 H Total Absolute Neuts 11.27 H Lymphocytes # (Manual) 0.78 L Total Abs Lymphocytes 1.00 L Monocytes # (Manual) 0.33 Basophils # (Manual) 0.12 Myelocytes # (Manual) 0.12 H Plasma Cell # (Manual) 0.22 H Sodium 135 L Potassium 3.5 Chloride 100 Carbon Dioxide 30 Anion Gap 5.0 BUN 23 H Creatinine 0.77 Est Cr Clr Drug Dosing 85.1 Est GFR ( Amer) 105.8 Est GFR (Non-Af Amer) 91.3 BUN/Creatinine Ratio 29.7 H Glucose 150 H POC Glucose 166 H Calcium 8.9 Phosphorus 1.8 L Magnesium 1.7 L Beta-(1,3)-D-Glucan B-(1,3)-D-Glucan Intrp 01/23/20 11:44 WBC RBC Hgb Hct MCV MCH MCHC RDW Std Deviation RDW Coeff of [place] Plt Count MPV Neutrophils % (Manual) Lymphocytes % (Manual) Monocytes % (Manual) Basophils % (Manual) Myelocytes % (Man) Plasma Cell % (Manual) Neutrophils # (Manual) Total Absolute Neuts Lymphocytes # (Manual) Total Abs Lymphocytes Monocytes # (Manual) Basophils # (Manual) Myelocytes # (Manual) Plasma Cell # (Manual) Sodium Potassium Chloride Carbon Dioxide Anion Gap BUN Creatinine Est Cr Clr Drug Dosing Est GFR ( Amer) Est GFR (Non-Af Amer) BUN/Creatinine Ratio Glucose POC Glucose 185 H Calcium Phosphorus Magnesium Beta-(1,3)-D-Glucan B-(1,3)-D-Glucan Intrp Medications Administered Current Inpatient Medications Acetaminophen (Ofirmev) 1,000 mg IV Q6H PRN PRN Reason: Pain or Fever Stop: 01/23/20 20:12 Last Admin: 01/23/20 01:59 Dose: 1,000 mg Documented by: Albuterol (Duoneb) 3 ml NEB QIDR [facility] Stop: 02/04/20 06:59 Last Admin: 01/23/20 11:32 Dose: 3 ml Documented by: Aspirin (Aspirin Chew) 81 mg PO DAILY [facility] Stop: 02/06/20 09:59 Last Admin: 01/23/20 08:46 Dose: 81 mg Documented by: Baclofen (Lioresal) 10 mg PO BID [facility] Stop: 02/22/20 08:59 Last Admin: 01/23/20 08:49 Dose: 10 mg Documented by: Dextrose (Dextrose 50%) 25 - 50 ml IV UD PRN; Protocol PRN Reason: Hypoglycemia Protocol Stop: 02/03/20 20:13 Last Admin: 01/17/20 21:01 Dose: 25 ml Documented by: Divalproex Sodium (Depakote Sprinkle) 500 mg PO BID [facility] Stop: 02/20/20 08:59 Last Admin: 01/23/20 08:49 Dose: 500 mg Documented by: Enoxaparin Sodium (Lovenox) 40 mg SQ DAILY@1400 [facility] Stop: 02/06/20 13:59 Last Admin: 01/22/20 13:25 Dose: 40 mg Documented by: Enteral Nutritional Formula (Impact 1.0 Rohit) 1,000 ml PEG UD PRN; Protocol PRN Reason: TUBE FEEDS Stop: 02/05/20 11:49 Last Admin: 01/23/20 00:35 Dose: 1,000 ml Documented by: Fentanyl (Duragesic) 12 mcg TD Q72H [facility] Stop: 02/05/20 11:59 Last Admin: 01/22/20 12:07 Dose: 12 mcg Documented by: Glucagon (Glucagen) 1 mg SQ UD PRN; Protocol PRN Reason: Hypoglycemia Protocol Stop: 02/03/20 20:13 Glucose (Dex4 Glucose) 4 - 8 tabs PO UD PRN; Protocol PRN Reason: Hypoglycemia Protocol Stop: 02/03/20 20:13 Glucose (Glucose 40%) 15 - 30 gm PO UD PRN; Protocol PRN Reason: Hypoglycemia Protocol Stop: 02/03/20 20:13 Haloperidol (Haldol) 2 mg PO BID OFE Stop: 02/20/20 20:59 Last Admin: 01/23/20 08:52 Dose: 2 mg Documented by: Heparin Sodium (Beef Lung) (Heparin Sod 10 Unit/Ml Flush) 5 ml FLUSH PRN PRN PRN Reason: Flush Stop: 02/14/20 17:12 Lorazepam (Ativan) 1 mg in 2 mls @ 2 mls/min IV Q4H PRN PRN Reason: Sedation Stop: 02/12/20 15:21 Last Admin: 01/20/20 23:11 Dose: 2 mls/min Documented by: Ceftolozane/Tazobactam 3,000 (mg/ Dextrose) 122.8 mls @ 111.4 mls/hr IV Q8H [facility] Stop: 01/23/20 23:59 Last Infusion: 01/23/20 10:21 Dose: Infused Documented by: Caspofungin 50 mg/ Sodium (Chloride) 260 mls @ 250 mls/hr IV Q24H [facility]; Protocol Stop: 01/30/20 20:03 Last Infusion: 01/22/20 20:32 Dose: Infused Documented by: Levetiracetam 750 mg/ Sodium (Chloride) 107.5 mls @ 420 mls/hr IV BID [facility] Stop: 02/20/20 20:59 Last Infusion: 01/23/20 09:16 Dose: Infused Documented by: Magnesium Sulfate/Dextrose (Magnesium Sulfate / D5w) 1 gm in 100 mls @ 50 mls/hr IV Q2H STA Stop: 01/23/20 13:48 Insulin Aspart (Novolog Flexpen) 0 units SC Q4 OFE; Protocol Stop: 02/03/20 20:44 Last Admin: 01/23/20 08:40 Dose: 4 units Documented by: Insulin Glargine (Lantus Solostar Pen) 10 units SQ DAILY [facility] Stop: 02/21/20 12:29 Last Admin: 01/23/20 08:47 Dose: 10 units Documented by: Lansoprazole (Prevacid) 15 mg PO QAM OFE Stop: 02/12/20 08:59 Last Admin: 01/23/20 08:53 Dose: 15 mg Documented by: Miscellaneous (Carbohydrates For Hypoglycemia) 15 - 30 gm PO UD PRN PRN Reason: Hypoglycemia Protocol Stop: 02/03/20 20:13 Miscellaneous (Fentanyl Patch Remove & Waste) 1 ea N/A Q72H OFE Stop: 02/24/20 11:59 Miscellaneous (Fentanyl Patch Check Placement) 1 ea N/A QS OFE Stop: 02/21/20 15:59 Last Admin: 01/23/20 08:45 Dose: 1 ea Documented by: Miscellaneous Information (Consult Glycemic Management Pharmacy) 1 ea N/A UD PRN PRN Reason: Consult Stop: 02/16/20 08:55 Polyethylene Glycol (Miralax Powder Packet) 17 gm PEG DAILY OFE Stop: 02/21/20 16:44 Last Admin: 01/23/20 08:53 Dose: 17 gm Documented by: Potassium Phosphate (Potassium Phosphate Replace) 21 mmol IV NOW STA Stop: 01/23/20 11:50 Sterile Water (Tube Feeding Water Flush) 100 ea GT Q8H OFE Stop: 02/21/20 18:10 Last Admin: 01/23/20 09:37 Dose: 100 ea Documented by: Venlafaxine HCl (Effexor) 37.5 mg PO BID OFE Stop: 02/21/20 20:59 Last Admin: 01/23/20 08:49 Dose: 37.5 mg Documented by: PG Care Time/CCT Total # of Minutes Spent Total Time Spent with Patient: Total time spent is greater than 50% in coordination of care (as documented) at patient's floor/unit and/or counseling patient: Coding Level of Care Code 21596 Subseq Hosp Care Lvl 3 Diagnoses Sepsis associated hypotension A41.9; I95.9 Acute respiratory failure with hypoxia J96.01 Pneumonia J18.9 Urinary tract infection N39.0 Acute kidney injury N17.9 Hypernatremia E87.0 Altered mental state R41.82 Schizoaffective disorder, chronic condition F25.8 Psychosis F29 Dementia F03.90 Coronary artery disease I25.10 Diabetes E11.9 Hyperlipidemia E78.5 GERD (gastroesophageal reflux disease) K21.9 Chronic prescription opiate use Z79.891 Peripheral vascular disease I73.9 Chronic gout [id number] Seizure disorder G40.909 Muscle weakness M62.81 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 Hypomagnesemia E83.42 Hypophosphatemia E83.39
[2020-01-23] MEDS: MAGNESIUM SULFATE / D5W 1 GM/100 ML BAG IV SCH ×2 (12:10→14:45)
[2020-01-23] MEDS ORDERED: POTASSIUM PHOSPHATE 21 MMOL in SODIUM CHLORIDE 0.9% 500 ML IV ONE (12:30)
[2020-01-23] MEDS: ENOXAPARIN INJ 40 MG/0.4 ML SYR SQ SCH (13:01)
[2020-01-23] MEDS: CASPOFUNGIN 50 MG in SODIUM CHLORIDE 0.9% 250 ML IV SCH (18:08)
[2020-01-23] MEDS: levETIRAcetam ORAL SOLN 100MG/ML PEG SCH (22:50)
[2020-01-24] MEDS: CHECK FENTANYL PATCH PLACEMENT SCH ×3 (00:50→16:03)
[2020-01-24] MEDS: INSULIN ASPART 100 UNITS/ML 3 ML PEN SC SCH ×6 (00:51→21:45)
[2020-01-24] MEDS: TUBE FEEDING WATER FLUSH GT SCH ×3 (02:15→18:09)
[2020-01-24] MEDS: ALBUT/IPRATROP 3MG/0.5MG NEB 3 ML VIAL NEB SCH ×4 (07:52→19:25)
[2020-01-24] MEDS: ASPIRIN 81 MG CHEW PO SCH (08:17)
[2020-01-24] MEDS: POLYETHYLENE (MIRALAX) 17 GM PACK PEG SCH (08:18)
[2020-01-24] MEDS: VENLAFAXINE HCL 37.5 MG TAB PO SCH ×2 (08:19→21:46)
[2020-01-24] MEDS: BACLOFEN 10 MG TAB PO SCH ×2 (08:19→21:47)
[2020-01-24] MEDS: haloperidoL 1 MG TAB PO SCH ×2 (08:19→21:48)
[2020-01-24] MEDS: levETIRAcetam ORAL SOLN 100MG/ML PEG SCH ×2 (08:19→21:46)
[2020-01-24] MEDS: DIVALPROEX SODIUM SPRINKLE 125 MG CAP PO SCH ×2 (08:21→21:46)
[2020-01-24] MEDS: LANSOPRAZOLE 15 MG SOLTAB PO SCH (08:22)
--- NOTE | 2020-01-24 08:24 | XRay Report ---
XR chest 1V portable HISTORY: 69 years-old Male low grade temperature, agitation acute fever with agitation COMPARISON: Chest radiograph 01/18/2020 TECHNIQUE: Portable AP view of the chest FINDINGS: Cardiac silhouette is enlarged, unchanged. Tracheostomy cannula overlies the midline at the level of the clavicular heads. Progressively worsened right greater than left bilateral mixed interstitial and alveolar opacities with development of small bilateral pleural effusions. No pneumothorax. Degenerat dari changes of the shoulders and spine. IMPRESSION: 1. Cardiomegaly with progressed right greater than left mixed interstitial and alveolar opacities sug gestive of pulmonary edema versus multifocal pneumonia. 2. Small pleural effusions. 3. No pneumothorax. ACT 112: Negative or not required by law. The above report was generated using voice recognition software. It may contain grammatical, syntax o r spelling errors. Electronically signed by: Yong Farrar M.D. 01/24/2020 8:23 AM
--- NOTE | 2020-01-24 08:35 | Pharmacy Report ---
Pharmacy Glycemic Short Note 2 - Date of Service January 24, 2020 - Glycemic Short BSG Results (Last 24 hours): 01/23/20 01/23/20 01/23/20 11:44 16:02 20:16 POC Glucose 185 H 176 H 184 H 01/23/20 01/24/20 01/24/20 23:58 04:01 07:38 POC Glucose 172 H 187 H 188 H OUTPATIENT ANTIDIABETIC REGIMEN: * Lantus 10 units SQ daily * A1c = 6.6% 01/05/20 ASSESSMENT: * Tube feeds (Impact 1.0 britney) at goal rate of 70 mL/hr - providing 36 grams of carbohydrates over 4 hours * BSGs reasonably well-controlled yesterday - ranging 150-185 mg/dL * Patient received 27 units of insulin yesterday - 10 units of basal and 17 units of prandial/correctional * Will increase basal insulin today by 20% and tighten carb coverage * Continues on caspofungin for treatment of multi-drug resistant pneumonia. Zerbaxa finished yesterday. PLAN FOR INPATIENT GLYCEMIC CONTROL: * Basal insulin - increase * Lantus 12 units SC qAM * Bolus insulin - tighten carb coverage and slightly lower goal range * NovoLog per scale Q 4hrs * Goal Range: Low 120 mg/dL - High 150 mg/dL * Correction Factor: 30 mg/dL/unit * Nutritional / Prandial insulin per carb ratio of 1 unit per 10 grams CHO consumed PLAN FOR DISCHARGE: * to be determined - will ultimately depend upon method of feeding on discharge
[2020-01-24] MEDS ORDERED: INSULIN GLARGINE SOLOSTAR 100 UNITS/ML 3 ML PEN SQ SCH (09:00)
[2020-01-24 09:06] LABS: Hematocrit (blood only) 30.7 % (42-52); Hemoglobin 10.4 g/dL (14.0-18.0); Mean Corpuscular Hgb Conc 33.9 g/dL (32-36); Mean Corpuscular Volume 91.6 fL (80-100); Mean Platelet Volume 8.8 fL (7.4-10.4); Platelet Count 318 K/uL (130-400); RDW Coefficient of Variation 13.7 % (11.5-14.5); RDW Standard Deviation 45.5 fL (36.4-46.3); Red Blood Count 3.35 M/uL (4.7-6.1); White Blood Count 15.23 K/uL (4.8-10.8)
[2020-01-24 09:37] LABS: BUN Creatinine Ratio 32.3 (10-20); Calcium 8.7 mg/dl (8.5-10.1); Creatinine Clr Calc Pharmacy 90.8 ml/min; Est GFR (African American) 109.4; Est GFR (Non-African American) 94.4; Phosphorus 2.3 mg/dl (2.5-4.9); Potassium 3.8 mmol/L (3.5-5.1)
[2020-01-24 09:44] LABS: Basophils # (auto) 0.03 K/uL (0-0.2); Basophils % (auto) 0.2 %; Eosinophils # (auto) 0.01 K/uL (0-0.5); Eosinophils % (auto) 0.1 %; Immature Granulocytes # (auto) 0.12 K/uL (0.00-0.02); Immature Granulocytes % (auto) 0.8 %; Lymphocytes # (auto) 2.22 K/uL (1.2-3.4); Lymphocytes % (auto) 14.6 %; Monocytes # (auto) 1.23 K/uL (0.11-0.59); Monocytes % (auto) 8.1 %; Neutrophils # (auto) 11.62 K/uL (1.4-6.5); Neutrophils % (auto) 76.2 %
[2020-01-24] MEDS ORDERED: TRAMADOL HCL 50 MG TABLET PO PRN (11:29)
[2020-01-24] MEDS ORDERED: ERTAPENEM SODIUM 1,000 MG in SODIUM CHLORIDE 0.9% 50 ML IV SCH (12:00)
[2020-01-24] MEDS: ENOXAPARIN INJ 40 MG/0.4 ML SYR SQ SCH (13:28)
[2020-01-24] MEDS: CEFTOLOZANE/TAZOBACTAM 3,000 MG in DEXTROSE 5% 100 ML IV SCH ×2 (13:29→22:01)
--- NOTE | 2020-01-24 15:59 | Hospitalist Progress Note ---
Date of Service January 24, 2020 Assessment & Plan (1) Sepsis associated hypotension: gram negatives in blood and urine growing quinalone resistant E Coli resolved now ESBL Klebsiella in sputum on 01/10 and 01/16, antibiotics changed to Ceftolazone tazobactam finished course of Ceftolazone on 01/22 on Caspofungin for Sherry glabrata, will order US guided IV for tomorrow now with WBC of 15k and low grade temp, CXR with worsening infiltrate on right resume Ceftolazone today (01/23) and continue on discharge sputum culture obtained 01/23, follow up results (2) Acute respiratory failure with hypoxia: Pt was intubated and ventilated, managed by icu team Poor response attempted weaning trials concern for persistent ventilation required. weaning trial of 01/13 resulted in seizure like activity Concerns for recurrent aspiration and protecting airway Discussion with family and the critical care attending on Sunday 01/14 with decision for DNR tracheostomy placed 01/14 now with tracheostomy, tolerating blow by oxygen on 01/18, essentially off venti lator support continue to monitor, stable on 6L again today (3) Pneumonia: Aspiration vs. Health-care acquired (in shelter setting). ESBL klebsiella on sputum culture on 01/10 and again on 01/16, treated with ceftolazone/tazobactam, finished 01/22 WBC up to 15k, low grade temp but not a true fever CXR 01/23 with worsening infiltrate right side, multifocal pneumonia oxygen saturations stable on 6L via tracheostomy discussed with pharmacy, send out sensitivity profile on Klebsiella from 01/10 shows that it was sensitive to Ceftolazone the final sensitivity from 01/16 still pending repeat sputum cultures obtained 01/23, will need to send results to LTACH resume Ceftolazone today (01/23) Ertapenem would be a better option if he was not on Depakote and did not have a history of seizures, see below also grew out Sherry glabrata treat with Caspofungin for two weeks total, today is day 7 (4) Urinary tract infection: resolved (5) Acute kidney injury: Suspected prerenal due to acute infection, dehydration (poor oral intake) and meloxicam use. Resolved Continue holding meloxicam. Patient is on tube feeds resolved hypernatremia. (6) Hypernatremia: Increased on admission due to NSS given as boluses in ER and to some extent LR maintenance. Unlikely DI given no polyuria noted. on tube feeds and free water flushes at this time, Na stable (7) Altered mental state: metabolic encephalopathy CT head negative for acute intracranial abnormality EEG unremarkable (8) Schizoaffective disorder, chronic condition: previously taking both Seroquel 100 mg twice daily (although notably on Seroquel 150mg TID in 2015) and haloperidol 2mg PO BID and 25 mg IM monthly. Consulted psychiatry did not feel that delirium is related to his psychotropic medications. ok to use Haldol 2mg PEG BID, will continue Effexor 37.5mg BID also on Depakote 500mg BID, might consider stopping, see below (9) Psychosis: He has remained ventilated with support now via tracheostomy which was placed on 01/14. Continue to be unable to determine delusion or hallucinations given dementia and current cognitive state. he is alert, responsive, no distress but little meaningful interaction, mostly stares at you could be partly a language barrier, he responded better to his brother who spoke upper sorbian (10) Dementia: Noted history of stroke with old left cerebral infarct. Although Alzheimer's noted on prior problem list Pt has been non functional at SNF for some time and has contracture of his right had that is pre hospital add baclofen for muscle spasms, tolerating well (11) Coronary artery disease: Unclear history of this. No prior stents or CABG Echocardiogram performed 01/03 shows normal EF, severe aortic stenosis. (12) Diabetes: HbA1C 6.6 Continue Novolog correction factor for now, plus scheduled lantus given reliable calorie intake (13) Hyperlipidemia: Hold simvastatin while NPO (14) GERD (gastroesophageal reflux disease): Now on Pepcid via his NG tube (15) Chronic prescription opiate use: Fentanyl patch removed on admission On chronic opiates for right foot and right hand pain.( hand contractures) Also taking Meloxicam 15mg QAM and [place] Q6H OFE as per prior documentation back on Fentanyl patch, change every 72 hours reduce dose to 12mcg daily, try to stop in a week Neurology recommends trying Ultram for pain, this was ordered today (16) Peripheral vascular disease: Noted history of this. Not on antiplatelets are noted above. Holding simvastatin while NPO and lethargic. (17) Chronic gout: previously on allopurinol (18) Seizure disorder: Valproic acid and Keppra levels ordered, normal Keppra with neurology oversight after apparent seizure during weaning trial 01/13 pevious EEG - non-seizure activity noted despite head tremor during EEG. Very mild generalized slowing represents a very mild encephalopathy. Dr. Oliveira recommends Keppra, increased to 750mg BID, continue on discharge reviewed record from [facility], Depakote was prescribed more for mood disorder, change back to BID to keep dosing less than 1000mg daily Dr. Oliveira would like to discontinue the Depakote completely, however, it is a little more complicated due to potential antibiotic situation if the final sensitivity from 01/16 on Klebsiella shows resistance to Ceftolazone the we would need to use Ertapenem this would lower seizure threshold, also it interacts with Depakote by lowering drug levels if Ertapenem is necessary, Dr. 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 Suspect from prior stroke in setting of chronic anti-psychotic use. Consult neurology -is following and adjusting antiepileptic medications (21) Depression: previously on venlafaxine (22) Hypomagnesemia: replaced with IV mag today (23) Hypophosphatemia: replace with potassium phosphate (24) DVT prophylaxis: lovenox daily Patient's brother who is only next of kin we can identify. The borther expressed during family meeting 01/14, that there are strong presybeterian overtones regarding sanctity of life and living and as the next of kin, Octaviano, feels he cannot determine end of life, he is comfortable making the pt DNR at this time and did consent to a tracheostomy and PICC line now has PEG for hydration and nutrition and medications plan for LTACH tomorrow will need to continue on Ceftolazone and Caspofungin for pneumonia Fentanyl patch should be 12mcg with plans to discontinue soon, use Ultram PRN for pain continue Baclofen BID for muscle spasms see discussion above about possible need for Ertapenem repeat sputum cultures obtained on 01/23 he is stable for LTACH, they have more capabilities than our [facility] floor currently we are dealing with complications of tracheostomy such as recurrent pneumonia long discussion with patient's brother on 01/23 about reality of the situation, patient will be subject to pneumonia, UTI, pressure ulcers, little to no quality of life again, brother feels he cannot determine end of life, he will be DNR Admission and Anticipated Discharge Date Admission Date: January 04, 2020 Subjective reviewed labs this morning, WBC up to 15k, low grade temperatures Cr is stable, electrolytes stable, phos just a little low at 2.3 CXR obtained due to leukocytosis and low grade temp, worsening possible pneumonia on right reviewed of chart shows that he grew out ESBL Klebsiella from sputum culture on 01/10 and 01/16 the 01/10 culture was sensitive to Zerbaxa, still unsure if the 01/16 Klebsiella was sensitive the Klebsiella is sensitive to Ertapenem, but Ertapenem lowers seizure thr eshold, severe interaction with Depakote called Dr. Oliveira to discuss we are unsure that the Depakote is for seizures as it was listed for mood disorder she would like to discontinue it all together, however, if we would attempt Ertapenem then she would recommend holding off on stopping it until treatment complete if Ertapenem is needed because the Klebsiella is resistant to Zerbaxa, then we could use a Klonopin bridge for 10 days to prevent seizures patient's brother visited and I updated him at the bedside for 30 minutes he had many questions, such as why does he have bruises, abrasions on legs and arms asked for him to be repositioned and suctioned I discussed with him the plan for LTACH tomorrow and he agrees explained that they have intensivists/pulmonologists rounding, will be able to manage his needs he has been stable on the tracheostomy collar at 6L, no real respiratory distress I had a rebecca conversation with his brother, the patient will be prone to aspiration pneumonia he will be prone to pressure ulcers explained that his condition will likely not improve, will only gradually worsen with having a tracheostomy and PEG and being bed bound he will have diarrhea with the tube feeds, he will be prone to UTI with the catheter his brother wants to continue care and transfer to LTACH asked respiratory care to suction patient, obtain new sputum culture with the leukocytosis, worsening CXR and low grade temperature Review of Systems Review of Systems: Unobtainable due to cognitive status Physical Exam Constitutional: + thin and comfortable; no acute distress Eyes: PERRL, conjunctivae normal, anicteric sclerae ENMT: external ear and nose normal, oropharynx normal Neck: trachea midline, no thyromegaly (tracheostomy midline, secretions) Respiratory: normal respiratory effort, lungs clear to auscultation (decreased breath sounds bases) Auscultation: + rhonchi; no crackles and no wheezes Cardiovascular: RRR, no murmur, no edema Gastrointestinal (Abdomen): normal bowel sounds, soft, nontender, no hepatosplenomegaly Musculoskeletal: Head/Neck/Chest: normocephalic, head atraumatic and neck supple Extremities: + abnormal strength (generalized weakness, moving extremities) Skin: no rashes, warm and dry Neurologic: CN's II-XI intact bilaterally, deep tendon reflexes 2+ bilaterally, moves all extremities, + focal motor deficit (contractures) and awake Speech / Cognition: + abnormal speech (non verbal) Motor/Sensory: + abnormal movement Psychiatric: Orientation: + not alert and + not oriented x 3 Lymphatic: no cervical or axillary lymphadenopathy Results & Data Results & Data ([facility]) Vital Signs (Past 12 Hours) Vital Signs Temp Pulse Resp BP Pulse Ox 01/24/20 15:37 36.8 C 102 H 20 160/86 H 97 01/24/20 12:05 91 H 20 91 01/24/20 07:52 86 20 92 01/24/20 07:32 37.8 C H 72 20 160/80 H 94 Laboratory Results Laboratory Results - last 24 hr 01/23/20 01/23/20 01/23/20 16:02 20:16 23:58 WBC RBC Hgb Hct MCV MCH MCHC RDW Std Deviation RDW Coeff of Kasey Plt Count MPV Immature Gran % (Auto) Neut % (Auto) Lymph % (Auto) [place] % (Auto) Eos % (Auto) Baso % (Auto) Neut # (Auto) Lymph # (Auto) [place] # (Auto) Eos # (Auto) Baso # (Auto) Immature Gran # (Auto) Sodium Potassium Chloride Carbon Dioxide Anion Gap BUN Creatinine Est Cr Clr Drug Dosing Est GFR ( Amer) Est GFR (Non-Af Amer) BUN/Creatinine Ratio Glucose POC Glucose 176 H 184 H 172 H Calcium Phosphorus Magnesium Specimen Hemolysis 01/24/20 01/24/20 01/24/20 04:01 07:38 08:23 WBC RBC Hgb Hct MCV MCH MCHC RDW Std Deviation RDW Coeff of Kasey Plt Count MPV Immature Gran % (Auto) Neut % (Auto) Lymph % (Auto) [place] % (Auto) Eos % (Auto) Baso % (Auto) Neut # (Auto) Lymph # (Auto) [place] # (Auto) Eos # (Auto) Baso # (Auto) Immature Gran # (Auto) Sodium 132 L Potassium 3.8 Chloride 99 Carbon Dioxide 25 Anion Gap 8.0 BUN 23 H Creatinine 0.71 Est Cr Clr Drug Dosing 90.8 Est GFR ( Amer) 109.4 Est GFR (Non-Af Amer) 94.4 BUN/Creatinine Ratio 32.3 H Glucose 144 H POC Glucose 187 H 188 H Calcium 8.7 Phosphorus 2.3 L Magnesium 2.0 Specimen Hemolysis 01/24/20 01/24/20 01/24/20 08:23 11:30 15:51 WBC 15.23 H RBC 3.35 L Hgb 10.4 L Hct 30.7 L MCV 91.6 MCH 31.0 MCHC 33.9 RDW Std Deviation 45.5 RDW Coeff of Kasey 13.7 Plt Count 318 MPV 8.8 Immature Gran % (Auto) 0.8 Neut % (Auto) 76.2 Lymph % (Auto) 14.6 [place] % (Auto) 8.1 Eos % (Auto) 0.1 Baso % (Auto) 0.2 Neut # (Auto) 11.62 H Lymph # (Auto) 2.22 [place] # (Auto) 1.23 H Eos # (Auto) 0.01 Baso # (Auto) 0.03 Immature Gran # (Auto) 0.12 H Sodium Potassium Chloride Carbon Dioxide Anion Gap BUN Creatinine Est Cr Clr Drug Dosing Est GFR ( Amer) Est GFR (Non-Af Amer) BUN/Creatinine Ratio Glucose POC Glucose 160 H 181 H Calcium Phosphorus Magnesium Specimen Hemolysis Diagnostic Findings XR chest 1V portable HISTORY: 69 years-old Male low grade temperature, agitation acute fever with agitation COMPARISON: Chest radiograph 01/18/2020 TECHNIQUE: Portable AP view of the chest FINDINGS: Cardiac silhouette is enlarged, unchanged. Tracheostomy cannula overlies the midline at the level of the clavicular heads. Progressively worsened right greater than left bilateral mixed interstitial and alveolar opacities with development of small bilateral pleural effusions. No pneumothorax. Degenerative changes of the shoulders and spine. IMPRESSION: 1. Cardiomegaly with progressed right greater than left mixed interstitial and alveolar opacities suggestive of pulmonary edema versus multifocal pneumonia. 2. Small pleural effusions. 3. No pneumothorax. Medications Administered Current Inpatient Medications Albuterol (Duoneb) 3 ml NEB QIDR OFE Stop: 02/04/20 06:59 Last Admin: 01/24/20 15:35 Dose: 3 ml Documented by: Aspirin (Aspirin Chew) 81 mg PO DAILY [facility] Stop: 02/06/20 09:59 Last Admin: 01/24/20 08:17 Dose: 81 mg Documented by: Baclofen (Lioresal) 10 mg PO BID [facility] Stop: 02/22/20 08:59 Last Admin: 01/24/20 08:19 Dose: 10 mg Documented by: Dextrose (Dextrose 50%) 25 - 50 ml IV UD PRN; Protocol PRN Reason: Hypoglycemia Protocol Stop: 02/03/20 20:13 Last Admin: 01/17/20 21:01 Dose: 25 ml Documented by: Divalproex Sodium (Depakote Sprinkle) 500 mg PO BID [facility] Stop: 02/20/20 08:59 Last Admin: 01/24/20 08:21 Dose: 500 mg Documented by: Enoxaparin Sodium (Lovenox) 40 mg SQ DAILY@1400 [facility] Stop: 02/06/20 13:59 Last Admin: 01/24/20 13:28 Dose: 40 mg Documented by: Enteral Nutritional Formula (Impact 1.0 Rohit) 1,000 ml PEG UD PRN; Protocol PRN Reason: TUBE FEEDS Stop: 02/05/20 11:49 Last Admin: 01/23/20 00:35 Dose: 1,000 ml Documented by: Fentanyl (Duragesic) 12 mcg TD Q72H [facility] Stop: 02/05/20 11:59 Last Admin: 01/22/20 12:07 Dose: 12 mcg Documented by: Glucagon (Glucagen) 1 mg SQ UD PRN; Protocol PRN Reason: Hypoglycemia Protocol Stop: 02/03/20 20:13 Glucose (Dex4 Glucose) 4 - 8 tabs PO UD PRN; Protocol PRN Reason: Hypoglycemia Protocol Stop: 02/03/20 20:13 Glucose (Glucose 40%) 15 - 30 gm PO UD PRN; Protocol PRN Reason: Hypoglycemia Protocol Stop: 02/03/20 20:13 Haloperidol (Haldol) 2 mg PO BID OFE Stop: 02/20/20 20:59 Last Admin: 01/24/20 08:19 Dose: 2 mg Documented by: Heparin Sodium (Beef Lung) (Heparin Sod 10 Unit/Ml Flush) 5 ml FLUSH PRN PRN PRN Reason: Flush Stop: 02/14/20 17:12 Caspofungin 50 mg/ Sodium (Chloride) 260 mls @ 250 mls/hr IV Q24H OFE; Protocol Stop: 01/30/20 20:03 Last Infusion: 01/23/20 19:15 Dose: Infused Documented by: Ceftolozane/Tazobactam 3,000 (mg/ Dextrose) 122.8 mls @ 111.4 mls/hr IV Q8H [facility] Stop: 01/31/20 11:59 Last Infusion: 01/24/20 14:36 Dose: Infused Documented by: Insulin Aspart (Novolog Flexpen) 0 units SC Q4 OFE; Protocol Stop: 02/03/20 20:44 Last Admin: 01/24/20 11:33 Dose: 5 units Documented by: Insulin Glargine (Lantus Solostar Pen) 12 units SQ DAILY OFE Stop: 02/23/20 08:59 Last Admin: 01/24/20 08:16 Dose: 12 units Documented by: Lansoprazole (Prevacid) 15 mg PO QAM OFE Stop: 02/12/20 08:59 Last Admin: 01/24/20 08:22 Dose: 15 mg Documented by: Levetiracetam (Keppra) 750 mg PEG BID OFE Stop: 02/22/20 20:59 Last Admin: 01/24/20 08:19 Dose: 750 mg Documented by: Miscellaneous (Carbohydrates For Hypoglycemia) 15 - 30 gm PO UD PRN PRN Reason: Hypoglycemia Protocol Stop: 02/03/20 20:13 Miscellaneous (Fentanyl Patch Remove & Waste) 1 ea N/A Q72H OFE Stop: 02/24/20 11:59 Miscellaneous (Fentanyl Patch Check Placement) 1 ea N/A QS OFE Stop: 02/21/20 15:59 Last Admin: 01/24/20 08:17 Dose: 1 ea Documented by: Miscellaneous Information (Consult Glycemic Management Pharmacy) 1 ea N/A UD PRN PRN Reason: Consult Stop: 02/16/20 08:55 Polyethylene Glycol (Miralax Powder Packet) 17 gm PEG DAILY OFE Stop: 02/21/20 16:44 Last Admin: 01/24/20 08:18 Dose: 17 gm Documented by: Sterile Water (Tube Feeding Water Flush) 100 ea GT Q8H OFE Stop: 02/21/20 18:10 Last Admin: 01/24/20 09:55 Dose: 100 ea Documented by: Tramadol HCl (Ultram) 50 mg PO Q4H PRN PRN Reason: Pain Stop: 02/23/20 11:28 Last Admin: 01/24/20 12:46 Dose: 50 mg Documented by: Venlafaxine HCl (Effexor) 37.5 mg PO BID OFE Stop: 02/21/20 20:59 Last Admin: 01/24/20 08:19 Dose: 37.5 mg Documented by: PG Care Time/CCT Total # of Minutes Spent Total Time Spent: 70 Total Time Spent with Patient: Total time spent is greater than 50% in coordination of care (as documented) at patient's floor/unit and/or counseling patient: 40 minutes total at the bedside updated patient's brother and performing exam [address] Oliveira 20 minutes reviewing prior cultures, speaking with pharmacy, formulating treatment plan Prolonged Care Time Prolonged Care Time: Yes Total Prolonged Care Time: 40 Coding Level of Care Code 51488 Subseq Hosp Care Lvl 3 Diagnoses Sepsis associated hypotension A41.9; I95.9 Acute respiratory failure with hypoxia J96.01 Pneumonia J18.9 Urinary tract infection N39.0 Acute kidney injury N17.9 Hypernatremia E87.0 Altered mental state R41.82 Schizoaffective disorder, chronic condition F25.8 Psychosis F29 Dementia F03.90 Coronary artery disease I25.10 Diabetes E11.9 Hyperlipidemia E78.5 GERD (gastroesophageal reflux disease) K21.9 Chronic prescription opiate use Z79.891 Peripheral vascular disease I73.9 Chronic gout [id number] Seizure disorder G40.909 Muscle weakness M62.81 Extrapyramidal and movement disorder G25.9 Depression F32.9 Hypomagnesemia E83.42 Hypophosphatemia E83.39 DVT prophylaxis Z29.9 Additional Codes Prolonged Care Time - Prolonged Care Time: Yes ([id number])
[2020-01-24] MEDS: CASPOFUNGIN 50 MG in SODIUM CHLORIDE 0.9% 250 ML IV SCH (18:09)
[2020-01-25] MEDS: CHECK FENTANYL PATCH PLACEMENT SCH ×2 (00:21→08:45)
[2020-01-25] MEDS: INSULIN ASPART 100 UNITS/ML 3 ML PEN SC SCH ×4 (00:22→12:05)
[2020-01-25] MEDS: TUBE FEEDING WATER FLUSH GT SCH (02:00)
[2020-01-25] MEDS: CEFTOLOZANE/TAZOBACTAM 3,000 MG in DEXTROSE 5% 100 ML IV SCH (05:17)
[2020-01-25] MEDS: IMPACT LIQD 1.0 CAL 1,000 ML BAG PEG PRN (05:18)
[2020-01-25] MEDS: ALBUT/IPRATROP 3MG/0.5MG NEB 3 ML VIAL NEB SCH ×2 (06:48→11:03)
--- NOTE | 2020-01-25 08:26 | Pharmacy Report ---
Pharmacy Glycemic Short Note 2 - Date of Service January 25, 2020 - Glycemic Short BSG Results (Last 24 hours): 01/24/20 01/24/20 01/24/20 08:23 11:30 15:51 Glucose 144 H POC Glucose 160 H 181 H 01/24/20 01/24/20 01/25/20 20:19 23:10 03:48 Glucose POC Glucose 149 H 190 H 164 H 01/25/20 07:21 Glucose POC Glucose 205 H OUTPATIENT ANTIDIABETIC REGIMEN: * Lantus 10 units SQ daily * A1c = 6.6% 01/05/20 ASSESSMENT: * Tube feeds (Impact 1.0 britney) at goal rate of 70 mL/hr - providing 36 grams of carbohydrates over 4 hours * BSGs reasonably well-controlled yesterday - ranging 149-190 mg/dL * Patient received 33 units of insulin yesterday - 12 units of basal and 21 units of prandial/correctional * Will increase basal insulin today by ~20% and further tighten Novolog parameters * Continues on caspofungin for treatment of multi-drug resistant pneumonia. Zerbaxa restarted yesterday for follow-up sputum culture growing gram-negative bacilli PLAN FOR INPATIENT GLYCEMIC CONTROL: * Basal insulin - increase * Lantus 14 units SC qAM * Bolus insulin - tighten * NovoLog per scale Q 4hrs * Goal Range: Low 120 mg/dL - High 150 mg/dL * Correction Factor: 25 mg/dL/unit * Nutritional / Prandial insulin per carb ratio of 1 unit per 8 grams CHO consumed PLAN FOR DISCHARGE: * Patient to be discharged to LTACH - reasonable to continue current regimen if facility can manage accordingly * Lantus 14 units SC daily * Novolog SC q4h - parameters above (to include coverage for tube feeds) or simply 3 units q4h
[2020-01-25] MEDS: DIVALPROEX SODIUM SPRINKLE 125 MG CAP PO SCH (08:43)
[2020-01-25] MEDS: haloperidoL 1 MG TAB PO SCH (08:43)
[2020-01-25] MEDS: VENLAFAXINE HCL 37.5 MG TAB PO SCH (08:43)
[2020-01-25] MEDS: levETIRAcetam ORAL SOLN 100MG/ML PEG SCH (08:43)
[2020-01-25] MEDS: POLYETHYLENE (MIRALAX) 17 GM PACK PEG SCH (08:43)
[2020-01-25] MEDS: LANSOPRAZOLE 15 MG SOLTAB PO SCH (08:43)
[2020-01-25] MEDS: BACLOFEN 10 MG TAB PO SCH (08:43)
[2020-01-25] MEDS: ASPIRIN 81 MG CHEW PO SCH (08:49)
[2020-01-25] MEDS ORDERED: INSULIN GLARGINE SOLOSTAR 100 UNITS/ML 3 ML PEN SQ SCH (09:00)
[2020-01-25] MEDS ORDERED: TUBE FEEDING WATER FLUSH GT SCH (10:21)
--- NOTE | 2020-01-25 12:03 | Discharge Summary ---
Date of Service date of admission - January 04, 2020 date of discharge - January 25, 2020 Admission HPI Per Admitting Provider Fede iHnojosa is a 69 year old who presents from [facility] due to lethargy and hypoxia. History from patient is currently unobtainable. History obtained from Rebecca RN @ [facility]. Baseline patient is mostly bed- bound, he would throw himself out of a wheelchair. She reports he is not fed himself for a few months now due to dementia. He frequently becomes agitated and yells out. He was more recently noted to be pocketing food therefore recently changed to pured diets 2 days ago. Possibly aspirated food last week. No fevers noted. Around 11am today he was noticed to be pale, clammy, lethargic. Heart rate 113 bpm. No cough or shortness of breath were noted. No positive cases of COVID-19 have been detected at [facility], although no routine asymptomatic swabs are currently being performed. Chest x-ray ordered which showed dense left lower lobe infiltrate and he was started on Augmentin. This nurse saw the patient at 2 PM and he was noted to be very lethargic with SPO2 dropping therefore ambulance was called for patient to be transferred to the ER for further evaluation. Discussed his care with power of compliance attorney, his brother, Octaviano over the phone. He reports he has been extremely unhappy with the care at [facility], concerned about how lethargic his brother is been (although this has been going on for weeks), not getting enough to eat and drink, not changing his diaper frequently enough. Reports he was told today that his brothers heart is failing and this is why he was unwell, although he suspected all along it was an infection like he had previously. He confirms the patient is for full resuscitation and would like everything possibly done. Principal Diagnosis 1. e.coli UTI with septicemia 2. b/l pneumonia - fungal and bacterial 3. acute hypoxic respiratory failure with need for intubation, prolonged mechanical ventilation, and trach placement Discharge Exam Constitutional + altered mental status (Nonverbal ) and + frail appearing; no acute distress ENMT Mouth: no oral mucosal abnormality Neck trach in place; thick secretions present Respiratory course BS b/l with decreased BS left base; no rales Cardiovascular Rate/Rhythm: regular rate and regular rhythm Heart Sounds: normal S1, normal S2 and + murmur (2/6 RUSB systolic ) Vessels: posterior tibial pulses present and dorsalis pedis pulses present; no JVD Extremities: + edema (<1+ b/l ) Gastrointestinal (Abdomen) Inspection/Auscultation: normal bowel sounds; abdomen not distended Percussion/Palpation: abdomen soft; abdomen nontender and no hepatosplenomegaly PEG tube in place; insertion site clean, intact, no cellulitis Skin + pallor right arm PICC clean tiny ulceration of dorsum of left foot clean; tiny abrasions right leg larson Neurologic + does not move all extremities (Contracture right hand; possible contracture right leg ) Psychiatric Orientation: + not alert and + not oriented x 3 Discharge Data Allergies Allergy/AdvReac Type Severity Reaction Status Date / Time No Known Allergies Allergy Unverified 11/26/18 13:11 Consultations Psychiatry Critical Care Neurology Ophthalmology Gastroenterology Palliative Care Nutrition Speech therapy Wound Care Procedures Performed 1. Operation Date: 01/19/20 17:00 Actual Procedures p EGD Gastric Tube Placement - Sapphire Campoverde MD 2. PICC line placement 3. intubation/mechanical ventilation 4. fiberoptic bronchoscopy - Javier Douglas DO 5. tracheostomy placement - Sinan Birch MD 6. EEG - negative for seizure activity; findings c/w encephalopathy Ordered Studies 01/04/20 20:18 CT head/brain wo con Urgent FINDINGS: No acute intracranial hemorrhage, midline shift, intracranial mass, hydrocephalus, territorial ischemia or abnormal extra-axial collection. Age- related involutional changes. Encephalomalacia from remote infarct in the left frontal lobe anterior cerebral artery distribution with ex vacuo ventriculomegaly of the left lateral ventricle. Cerebral vascular calcifications. Patchy white matter hypodensities suggest chronic microvascular ischemic disease. Remote lacunar infarct of the left caudate nucleus. The calvarium is intact. Trace mastoid effusions. Paranasal sinuses are generally clear. Soft tissues are unremarkable. IMPRESSION: No acute intracranial abnormality. 01/07/20 09:53 US abdomen complete Routine IMPRESSION: 1. Mild prominence of the common bile duct at 8 mm. 2. Small right renal cyst. 3. Small fat-containing periumbilical hernia. 01/18/20 14:31 US venous doppler LE BI Routine - no DVT b/l legs. US venous doppler UE BI Routine - no DVT b/l arms. Hospital Course (1) Septicemia: Present on admission. 2nd to e.coli. 01/04/20 blood cultures were positive, 1/2 sets. source - urine. repeat blood cultures on 01/05/20 and thereafter were negative ensuring sterility. (2) Sepsis associated hypotension: 2nd to quinolone resistant E Coli UTI and bacteremia. resolved. Received a course of IV antibiotics for such in the first week of his stay. While on the ventilator he grew ESBL Klebsiella in sputum on 01/10 and 01/16. This was in the midst of difficulties weaning him from the ventilator. Antibiotics ultimately changed to Ceftolazone tazobactam. He finished course of Ceftolazone on 01/23/20 for the ESBL klebsiella. Patient also grew cathy glabrata from bronchoscopy fungal cultures dated 01/05/2020. He received IV caspofungin for the c. glabrata. These fungal cultures were from the RML and RLL. On 01/24/20 the patient developed a low-grade fever, worsening leukocytosis, and chest x-ray showed worsening right-sided infiltrates. Ceftolazone was resumed on that date. Repeat tracheal aspirate culture from 01/24/20 grew klebsiella aerogenes. Continue caspofungin until end date of 01/31/20. Continue ceftolazone tazobactam (zerbaxa) until end date of 02/01/20. (3) Acute respiratory failure with hypoxia: Pt was intubated and ventilated, managed by icu team. Intubated on 01/05/20. Did poorly with weaning trials in the setting of b/l pneumonia. Weaning trial on 01/13 resulted in seizure like activity. There were ongoing concerns for recurrent aspiration and protecting airway. Discussion with family (brother) and the critical care attending on Sunday 01/14 with decision for DNR status. Tracheostomy placed 01/14. By 01/19/20 the patient was weaned from the vent and transitioned to blow-by O2 via trach collar Transferring to [facility] on trach collar, 28% FiO2. (4) Pneumonia: Aspiration vs. Health-care acquired (in prison setting). ESBL klebsiella on sputum culture on 01/10 and again on 01/16, treated with ceftolazone/tazobactam, finished 01/22. WBC up to 15k, low grade temps, and worsening chest x-ray on 01/24/20 concerning for recurrent pneumonia. Ceftolazone/tazobactam was restarted on 01/24/20 due to these findings. Sensitivity profile on ESBL Klebsiella from 01/11/20 showed that it was sensitive to Ceftolazone. Repeat tracheal aspirate cultures obtained 01/24/20 grew klebsiella aerogenes. This ultimately was sensitive to cefepime, ertapenem, cipro, and levaquin. Ertapenem, however, would not be advised due to concomitant depakote use and increased risk of seizures. Also with Cathy Glabrata from bronch cultures. Treated with IV Caspofungin while hospitalized. End-dates of Zerbaxa and Caspofungin 02/01/20 and 01/31/20, respectively. (5) Urinary tract infection: resolved 2nd to E.Coli (6) Acute kidney injury: Suspected prerenal due to acute infection, dehydration (poor oral intake) and meloxicam use. Sepsis-associated ATN also possible. Peak Cr 2.1. Discharge Cr 0.7. Continue holding meloxicam. (7) Hypernatremia: Peak 160. Discharge Na level = 132. (8) Altered mental state: metabolic encephalopathy in the setting of severe sepsis/septicemia with baseline advanced dementia. CT head negative for acute intracranial abnormality. EEG unremarkable. nonverbal, just stares. (9) Schizoaffective disorder, chronic condition: Previously taking both Seroquel 100 mg twice daily (although notably on Seroquel 150mg TID in 2014) and haloperidol 2mg PO BID along with depo-haldol 25 mg IM monthly. Consulted psychiatry did not feel that delirium is related to his psychotropic medications. Continue haldol 2mg PEG BID and effexor 37.5mg PEG BID along with depakote 500mg BID. (10) Psychosis: Continue to be unable to determine delusions or hallucinations given dementia. Little meaningful interaction, mostly stares at you; nonverbal. Could be partly a language barrier as he responded better to his brother who spoke luxembourgish to him. (11) Dementia: Noted history of stroke with old left cerebral infarct. Thus dementia likely vascular in origin. Alzheimer's noted on prior problem list from SNF, however. He has contracture of right hand. Essentially bedbound at SNF for some time. Baclofen added for contractures while here. (12) Coronary artery disease: Unclear history of this. No prior stents or CABG Echocardiogram performed 01/03 shows normal EF, severe aortic stenosis. Normal wall motion. (13) Diabetes: HbA1C 6.6%. Continue Novolog correction factor for now, plus scheduled lantus given reliable calorie intake via PEG. (14) Hyperlipidemia: simvastatin (15) GERD (gastroesophageal reflux disease): Prevacid 15mg daily (16) Chronic prescription opiate use: Fentanyl patch removed on admission. On chronic opiates for right foot and right hand pain. (hand contractures) Also taking Meloxicam 15mg QAM and [place] Q6H OFE as per prior documentation. Back on Fentanyl patch 12mcg q72h. Tolerating such. Of note - meloxicam and norco both stopped. (17) Peripheral vascular disease: Continue asa 81mg daily. Continue simvastatin daily. (18) Chronic gout: Continue allopurinol prophylaxis. (19) Seizure disorder: Valproic acid and Keppra levels were normal. Apparent seizure during ventilator weaning trial 01/14/20. EEG without obvious seizure focus. Neurology consulted; recommended increase in keppra to 750mg. Leave depakote at 500mg BID. f/u neurology post-discharge for seizure d/o management. (20) Muscle weakness: Notable history for this with patient effectively bed-bound. baclofen for muscle spasms. 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 Suspect from prior stroke in setting of chronic anti-psychotic use. (22) Depression: Continue effexor 37.5mg BID via PEG. (23) Hypomagnesemia: replaced and resolved. discharge mag level 2. (24) Hypophosphatemia: replaced with potassium phosphate. discharge phos level 2.3. (25) Aortic stenosis: severe BARAK 0.91cm^2 (26) Goals of care, counseling/discussion: Patient's next of kin is his brother, Octaviano. Code status was discussed several times with Octaviano. Ultimately patient was made DNR. In the context of the patient's culture and gnosticist Octaviano stated that he can not determine "end of life" and thus the patient, despite his poor prognosis, was not made comfort care or hospice. Octaviano was counseled several times that prognosis remains very poor with little chance for meaningful recovery or quality of life. Total Time Total Time Spent Total Time Spent (In Minutes): 60 Total Time Includes: Examination of the Patient, Discharge Planning, Medication Reconciliation and Communication With Other Providers Discharge Plan Discharge Items Patient Disposition: Transfer Acute Care Hospital Reason For Visit: SEPSIS,ASPIRATION/COMMUNITY ACQUIRED PNA Discharge Diagnosis: 1. e coli septicemia 2. e coli UTI 3. acute hypoxic respiratory failure 2nd to pneumonia (candidal and klebsiella ESBL) 4. s/p trach placement 5. s/p PEG placement 6. history of stroke with right-sided hemiplegia 7. dementia 8. seizure disorder 9. T2DM 10. schizoaffective disorder 11. severe aortic stenosis 12. gout Activity: As commented below Activity Comment: per [facility] Non-emergency contact: Primary Care Provider Call non-emergency contact if: your pain is not controlled and you have a fever [facility] - Diet: Nothing by Mouth and Other - See Diet Comment Diet Comment: Impact tube feedings; 70cc/hr continuously. 100cc Free H20 flushes q8h. Addtl Attending Provider Instructions: 1. blood sugar checks q4h 2. all meds through PEG 3. trach collar - FIO2 - 21-30% 4. CBC, BMP, mag, phos within 24 hours of admission conditional code -- mech ventilation via trach OK; no chest compressions, no defibrillation. Pending Studies at Discharge: Yes Studies:: tracheal aspirate culture from 01/24/2020 Stand-Alone Forms: My [facility] Skilled Items Patient informed of condition?: No DNR: No (conditional code - no chest compressions, no shocks; mech ventilation ok) Discharge Level of Care: Other Communicable Disease: Yes Discharge Prognosis: Stable Lines: Peripheral IV Urinary Catheter: Yes (condom cath) Medications and DC Order Prescriptions: New ipratropium-albuterol 0.5 mg-3 mg(2.5 mg base)/3 mL Solution For Nebulization 3 ml NEB QIDR Qty: 1 RF: 0 baclofen 10 mg Tablet 10 mg PO BID Qty: 60 RF: 0 aspirin 81 mg Tablet,Chewable 81 mg feeding tube DAILY Qty: 90 RF: 0 enoxaparin 40 mg/0.4 mL Syringe 40 mg subcut DAILY@1400 Qty: 30 RF: 0 fentanyl 12 mcg/hr Patch 72 Hour 12 mcg transdermal Q72H Qty: 10 RF: 0 polyethylene glycol 3350 [Miralax] 17 gram Powder In Packet 17 g PEG DAILY Qty: 30 RF: 0 lansoprazole [Prevacid SoluTab] 15 mg Tablet,Disintegrat, Delay Rel 15 mg feeding tube QAM Qty: 90 RF: 0 haloperidol 2 mg tablet 2 mg feeding tube BID Qty: 60 RF: 0 venlafaxine 37.5 mg tablet 37.5 mg feeding tube BID Qty: 60 RF: 0 divalproex [Depakote] 500 mg tablet,delayed release (DR/EC) 500 mg PO BID Qty: 60 RF: 0 levetiracetam [Keppra] 750 mg tablet 750 mg PO BID Qty: 60 RF: 0 Lantus Solostar U-100 Insulin 100 unit/mL (3 mL) insulin pen 14 unit subcut DAILY Qty: 15 RF: 0 insulin aspart U-100 [Novolog Flexpen U-100 Insulin] 100 unit/mL (3 mL) insulin pen See Rx Instructions .ROUTE .COMPLEX Qty: 15 RF: 0 Changed simvastatin [Zocor] 10 mg Tablet 10 mg feeding tube HS Qty: 0 RF: 0 allopurinol 100 mg Tablet 200 mg feeding tube QAM Qty: 0 RF: 0 Discontinued allopurinol 100 mg Tablet 200 mg PO QAM RF: 0 haloperidol decanoate [Haldol Decanoate] 50 mg/mL Solution 25 mg IM MONTHLY RF: 0 calcium carbonate-vitamin D3 [Calcium 500 + D] 500 mg(1,250mg) -200 unit Tablet 1 tab PO QAM RF: 0 acetaminophen 325 mg Tablet 650 mg PO Q8H MDD 3G PRN (Reason: PAIN AND FEVER) RF: 0 hydrocodone-acetaminophen 5-325 mg Tablet 1 tab PO Q6H RF: 0 sennosides-docusate sodium [Senna-S] 8.6-50 mg Tablet 2 tab PO QAM RF: 0 quetiapine [Seroquel] 100 mg Tablet 100 mg PO BID RF: 0 bisacodyl [Dulcolax (bisacodyl)] 10 mg Suppository 10 mg IN DAILY PRN (Reason: Constipation) RF: 0 gabapentin 300 mg Capsule 600 mg PO TID RF: 0 omeprazole 20 mg Capsule,Delayed Release(Dr/Ec) 20 mg PO QAM RF: 0 divalproex 125 mg Capsule, Delayed Rel Sprinkle 250 mg PO TID RF: 0 levetiracetam [Keppra] 100 mg/mL Solution 750 mg PO BID RF: 0 Lantus Solostar U-100 Insulin 100 unit/mL (3 mL) Insulin Pen 10 unit SUBCUT QAM RF: 0 lidocaine 5 % Ointment 1 applic TOPICAL QAM RF: 0 amoxicillin-pot clavulanate 875-125 mg Tablet 1 tab PO BID RF: 0 fentanyl 50 mcg/hr Patch 72 Hour 1 patch TRANSDERMAL Q72H RF: 0 loperamide 2 mg Capsule 2 mg PO Q8H PRN (Reason: Diarrhea) RF: 0 meloxicam 15 mg Tablet 15 mg PO QAM RF: 0 vitamin B complex-folic acid 2,000 mcg Capsule 1 cap PO QAM RF: 0 venlafaxine 75 mg Tablet 75 mg PO HS RF: 0 venlafaxine 75 mg Tablet 150 mg PO QAM RF: 0 cholecalciferol (vitamin D3) 125 mcg (5,000 unit) Capsule 125 mcg PO DAILY RF: 0 haloperidol lactate 2 mg/mL Concentrate 2 mg PO BID RF: 0 acetaminophen 325 mg Tablet 650 mg PO Q8H MDD 3G PRN (Reason: PAIN AND FEVER) RF: 0 divalproex 125 mg Capsule, Delayed Rel Sprinkle 250 mg PO TID RF: 0 haloperidol lactate 2 mg/mL Concentrate 2 mg PO BID RF: 0 Lantus Solostar U-100 Insulin 100 unit/mL (3 mL) Insulin Pen 10 unit SUBCUT QAM RF: 0 levetiracetam [Keppra] 100 mg/mL Solution 750 mg PO BID RF: 0 simvastatin [Zocor] 10 mg Tablet 10 mg PO HS RF: 0 venlafaxine 75 mg Tablet 75 mg PO HS RF: 0 vitamin B complex-folic acid 2,000 mcg Capsule 1 cap PO QAM RF: 0 Discharge Orders: Discharge Order (Routine); Ordered 01/25/20 Ordered By: Vinny Ashley Admission Data Admit Date/Time: 01/04/20 18:44 Attending Provider: Vinny Ashley Admit Provider: Vinny Fenton Primary Care Provider: [facility] Other Providers: [facility], ; [facility] [place] ; Jakob De La Torre ; Vinny Fenton ; Grazyna Stallworth ; Donald Landa ; Javier Douglas ; Isa Zapata ; Sapphire Campoverde Other Interventions: Discharge Summary Assessment (RN) Last Done: 01/25/20 11:01 DC Date/Time DO NOT enter until pt leaves facility: 01/25/20 13:13 Coding Level of Care Code D/C Day Management >30 mins Diagnoses Septicemia A41.9 Sepsis associated hypotension A41.9; I95.9 Acute respiratory failure with hypoxia J96.01 Pneumonia J18.9 Urinary tract infection N39.0 Acute kidney injury N17.9 Hypernatremia E87.0 Altered mental state R41.82 Schizoaffective disorder, chronic condition F25.8 Psychosis F29 Dementia F03.90 Coronary artery disease I25.10 Diabetes E11.9 Hyperlipidemia E78.5 GERD (gastroesophageal reflux disease) K21.9 Chronic prescription opiate use Z79.891 Peripheral vascular disease I73.9 Chronic gout [id number] Seizure disorder G40.909 Muscle weakness M62.81 Extrapyramidal and movement disorder G25.9 Depression F32.9 Hypomagnesemia E83.42 Hypophosphatemia E83.39 Aortic stenosis I35.0 Goals of care, counseling/discussion Z71.89
[2020-01-25] MEDS: fentaNYL 12 MCG/HR TDSY TD SCH (12:06)
[2020-01-25] MEDS: ENOXAPARIN INJ 40 MG/0.4 ML SYR SQ SCH (12:10)
[2020-01-25 16:19] LABS: Valproic Acid, Free 20.1 mg/L (4.8-17.3); Valproic Acid, Total 62.9 mg/L (50.0-100.0)
== END 2020-01-25 13:13 | disposition short-term general hospital (02) | DRG 4 ==
LOC: ED 16:29 → 2S 18:44 → SUATTDRO 18:44 → 2S 19:32 → 1E 01-05 12:12 → 2W 01-20 11:03

== ENCOUNTER 2020-05-19 19:20 | Inpatient (IN) ==
[2020-05-19] MEDS ORDERED: SODIUM CHLORIDE 0.9% 1000ML 1,000 ML IV SCH (20:00)
[2020-05-19 20:22] LABS: Basophils # (auto) 0.03 K/uL (0-0.2); Basophils % (auto) 0.3 %; Eosinophils # (auto) 0.05 K/uL (0-0.5); Eosinophils % (auto) 0.5 %; Hematocrit (blood only) 41.7 % (42-52); Hemoglobin 12.6 g/dL (14.0-18.0); Immature Granulocytes # (auto) 0.45 K/uL (0.00-0.02); Immature Granulocytes % (auto) 4.7 %; Lymphocytes # (auto) 1.45 K/uL (1.2-3.4); Lymphocytes % (auto) 15.3 %; Mean Corpuscular Hemoglobin 28.3 pg (25-34); Mean Corpuscular Hgb Conc 30.2 g/dL (32-36); Mean Corpuscular Volume 93.5 fL (80-100); Mean Platelet Volume 9.7 fL (7.4-10.4); Monocytes # (auto) 0.68 K/uL (0.11-0.59); Monocytes % (auto) 7.2 %; Neutrophils # (auto) 6.82 K/uL (1.4-6.5); Platelet Count 256 K/uL (130-400); RDW Coefficient of Variation 16.1 % (11.5-14.5); RDW Standard Deviation 54.7 fL (36.4-46.3); Red Blood Count 4.46 M/uL (4.7-6.1); White Blood Count 9.48 K/uL (4.8-10.8)
[2020-05-19 20:34] LABS: Alanine Aminotransferase 35 U/L (12-78); Albumin Level 1.6 gm/dl (3.4-5.0); Aspartate Aminotransferase 44 U/L (15-37); BUN Creatinine Ratio 40.1 (10-20); Blood Urea Nitrogen 33 mg/dl (7-18); Calcium 8.8 mg/dl (8.5-10.1); Carbon Dioxide 32 mmol/L (21-32); Chloride 102 mmol/L (98-107); Est GFR (African American) 102.6; Est GFR (Non-African American) 88.5; Glucose 188 mg/dl (70-99); Magnesium 2.2 mg/dl (1.8-2.4); Potassium 4.2 mmol/L (3.5-5.1); Sodium 139 mmol/L (136-145)
[2020-05-19 20:39] LABS: Albumin Globulin Ratio 0.3 (0.9-2); Alkaline Phosphatase 91 U/L (45-117); Bilirubin,Total 0.2 mg/dl (0.2-1); Ferritin 557.5 ng/ml (8-388); Total Protein 6.6 gm/dl (6.4-8.2); Troponin I 0.025 ng/ml (0-0.045)
[2020-05-19 20:42] LABS: INR 1.1 (0.9-1.1); Partial Thromboplastin Ratio 0.9; Partial Thromboplastin Time 25.7 Seconds (21.0-31.0); Prothrombin Time 11.4 Seconds (9.0-12.0)
[2020-05-19] MEDS ORDERED: SODIUM CHLORIDE 0.9% 1000ML 500 ML IV ONE (20:44)
--- NOTE | 2020-05-19 20:48 | XRay Report ---
XR chest 1V portable HISTORY: Dyspnea COMPARISON: Chest 01/24/2020. FINDINGS: Tracheostomy tube appears in good position. There are low lung volumes. No pneumothorax. No pleural effusions. The heart remains stable in size. Diffuse interstitial thickening and bilateral h azy airspace opacities have slightly improved. IMPRESSION: Diffuse interstitial thickening and bilateral hazy airspace opacities. This has slightly improved in the interval. This could represent pulmonary edema or a pneumonia. ACT 112: Negative or not required by law. Electronically signed by: Heath Pham M.D. 05/19/2020 8:47 PM
[2020-05-19 20:52] LABS: D Dimer 28060 ug/L FEU (0-500)
[2020-05-19] MEDS ORDERED: OPTIRAY 320 125ml IV ONE (21:19)
[2020-05-19] MEDS ORDERED: VANCOMYCIN HCL 1,500 MG in SODIUM CHLORIDE 0.9% 500 ML IV ONE (21:38)
[2020-05-19] MEDS ORDERED: VANCOMYCIN CONSULT ACTIVE PRN (21:38)
[2020-05-19] MEDS ORDERED: CEFEPIME 2,000 MG/20 ML VIAL IV STA (21:38)
[2020-05-19] MEDS ORDERED: DEXAMETHASONE SOD INJ 10 MG/ML VIAL IV ONE (22:31)
[2020-05-19 23:06] LABS: Base Excess ABG 4.3 mEq/L (-9-1.8); HCO3 ABG 27 mmol/L (19-24); Oxygen Saturation ABG 89.6 % (90-95); PCO2 ABG 35 mmHg (35-46); PO2 ABG 57 mmHg (80-95)
[2020-05-19 23:07] LABS: Allen Test Pos (Pos)
[2020-05-19 23:10] LABS: NT Pro B Type Natriuretic Pept 1495 pg/ml (0-900); Phosphorus 2.8 mg/dl (2.5-4.9)
[2020-05-19 23:11] LABS: pH ABG 7.51 (7.35-7.45)
[2020-05-19] MEDS ORDERED: ONDANSETRON INJ 2 MG/ML 2 ML VIAL IV PRN (23:28)
[2020-05-19] MEDS ORDERED: ACETAMINOPHEN 325 MG TAB PO PRN (23:28)
[2020-05-19 23:44] LABS: Appearance Urine Clear (Clear); Bilirubin Urine Negative (Negative); Blood Urine Trace (Negative); Color Urine Yellow; Glucose Urine UA Negative (Negative); Ketones Urine Negative (Negative); Leukocyte Esterase Urine Negative (Negative); Nitrite Urine Negative (Negative); Protein Urine Negative (Negative); Specific Gravity Urine 1.015 (1.000-1.030); Urobilinogen Urine Negative (Negative)
[2020-05-20 00:03] LABS: Bacteria Urine Negative (Negative); Epithelial Cell Urine 0-5 /lpf (0-5); RBC Urine 0-4 /hpf (0-4); WBC Urine 0-5 /hpf (0-5)
[2020-05-20] MEDS ORDERED: GLUCAGON FOR INJ 1 MG VIAL SQ PRN (00:32)
[2020-05-20] MEDS ORDERED: ACETAMINOPHEN SUSP 325 MG/10.15 ML UDC PEG PRN (00:32)
[2020-05-20] MEDS ORDERED: CARBOHYDRATES FOR HYPOGLYCEMIA PO PRN (00:32)
[2020-05-20] MEDS ORDERED: GLUCOSE 10 TABS/TUBE PO PRN (00:32)
[2020-05-20] MEDS ORDERED: traMADol HCL 50 MG TABLET PO PRN (00:32)
[2020-05-20] MEDS ORDERED: GLUCOSE 40% GEL 15 GM TUBE PO PRN (00:32)
[2020-05-20] MEDS ORDERED: HYDROCORTISONE HC 2.5% CRM 30GM TUBE EXT PRN (00:55)
--- NOTE | 2020-05-20 01:06 | Emergency Department Note ---
History of Present Illness General Chief complaint: Shortness of Breath/Dyspnea Stated complaint: +COVID/PNEUMONIA Time Seen by Provider: 05/19/20 19:36 Source: RN notes reviewed and old records reviewed (long-term) Mode of arrival: EMS Limitations: physical limitation (Trach), patient cooperation (Nonverbal) and clinical acuity (Tachypneic) History of Present Illness Provider complaint: Covid positive, pneumonia, elevated D-dimer This patient is a 69-year-old male who presents emergency department from the [facility] where he is known to be Covid positive from 05/13. The patient has a tracheostomy and normally wears 6 L of oxygen. He does have a significant psychiatric history including schizophrenia. The patient was apparently started on azithromycin as well as Lovenox but was sent into the emergency department by request of his brother because of the elevated D-dimer. History is significantly limited secondary to the patient's inability to answer questions. History is obtained by nurses by report of EMS through the [facility] staff. Home Medications Medication Instructions Recorded Confirmed Type aspirin 81 mg FEEDING TUBE DAILY #90 tab 01/25/20 05/19/20 Rx fentanyl 12 mcg TRANSDERMAL Q72H #10 patch 01/25/20 05/19/20 Rx haloperidol 2 mg FEEDING TUBE BID #60 tab 01/25/20 05/19/20 Rx polyethylene glycol 3350 [Miralax] 17 g PEG DAILY #30 ea 01/25/20 05/19/20 Rx Azithromycin Packet 250 mg G-TUBE .DAILY FOR 4 DAYS 05/19/20 05/19/20 History Ferrous Sulfate Liquid 300 mg PEG BID 05/19/20 05/19/20 History Guaifenesin Belinda 200mg/10ml 10 ml G-TUBE BID 05/19/20 05/19/20 History Keppra Solution 100mg/Ml 750 mg G-TUBE BID 05/19/20 05/19/20 History Liquid Protein Supp 30 ml G-TUBE BID 05/19/20 05/19/20 History Pantoprazole 2mg/Ml 40 mg PEG QAM 05/19/20 05/19/20 History Valproic Acid Belinda 250mg/5ml 500 mg PO BID 05/19/20 05/19/20 History acetaminophen [Tylenol] 650 mg FEEDING TUBE Q6 PRN 05/19/20 05/19/20 History ascorbic acid (vitamin C) [Vitamin 500 mg FEEDING TUBE DAILY 05/19/20 05/19/20 History C] cholecalciferol (vitamin D3) 125 mcg FEEDING TUBE DAILY 05/19/20 05/19/20 History [Vitamin D3] enoxaparin 40 mg SUBCUT DAILY 05/19/20 05/19/20 History hydrocortisone [Anusol-HC] 1 ea NV Q12 PRN 05/19/20 05/19/20 History insulin glargine [Lantus Solostar 16 unit SUBCUT QAM 05/19/20 05/19/20 History U-100 Insulin] insulin lispro 1 sliding scale dose SUBCUT 05/19/20 05/19/20 History USEASDIRECTD magnesium hydroxide [Milk of 30 ml FEEDING TUBE UD PRN 05/19/20 05/19/20 History Magnesia] nut.tx.gluc intol,lf,soy-fiber 1 ea FEEDING TUBE UD 05/19/20 05/19/20 History [Glucerna 1.2 Rohit] tramadol 50 mg FEEDING TUBE Q4 PRN 05/19/20 05/19/20 History zinc 50 mg FEEDING TUBE BID 05/19/20 05/19/20 History Allergies Allergy/AdvReac Type Severity Reaction Status Date / Time No Known Allergies Allergy Unverified 05/19/20 22:59 Past Med/Surg History Medical History (Updated 05/21/20 @ 06:16 by Vinny Ashley) Alzheimer disease Chronic gout Chronic prescription opiate use Dementia Diabetes Gastrointestinal hemorrhage GERD (gastroesophageal reflux disease) Goals of care, counseling/discussion Hypertension Muscle weakness Peripheral vascular disease Schizoaffective disorder, chronic condition Seizure disorder Stroke Urinary tract infection Surgical History (Updated 05/20/20 @ 01:20 by Lavinia Menard DO) Status post insertion of percutaneous endoscopic gastrostomy (PEG) tube Tracheostomy in place Family History (Updated 05/20/20 @ 01:20 by Lavinia Menard DO) Other No significant family history Social History Smoking Status: Unknown if ever smoked Preferred Language: Mongolian Communication Ability: Impaired Communication Ability Comment: Unobtainable/ Patient unable to answer. Regrader Required: No marital status: Unknown Current Living Situation: Snf Feels Safe at Home: Yes Assistive Devices: Oxygen - Continuous Review of Systems Unobtainable due to cognitive status (Nonverbal) and Unobtainable due to endotracheal tube (Trach collar) Physical Exam Vital Signs Vital Signs - 24 hr 05/19/20 19:27 05/19/20 19:30 05/19/20 20:13 Temperature Source Oral Pulse Rate 103 H Pulse Rate [Apical] 101 H Respiratory Rate 44 H 40 H Respiratory Effort / Characteristics Blood Pressure 139/91 Blood Pressure [Right Arm] 133/91 Blood Pressure Mean 107 Blood Pressure Mean [Right Arm] 105 Pulse Oximetry 100 100 Oxygen Delivery Method Trach Collar Trach Collar Trach Collar Oxygen Flow Rate 6 6 6 Sepsis Recent Fever Within 48 Hours No Sepsis New/Unexplained Change in Mental Status No Sepsis Action Taken by Nursing Physician Notified 05/19/20 20:31 05/19/20 21:01 05/19/20 21:45 Temperature Source Pulse Rate 101 H 101 H Pulse Rate [Apical] 99 H Respiratory Rate 32 H 22 40 H Respiratory Effort / Characteristics Blood Pressure 147/97 H 132/91 Blood Pressure [Right Arm] 158/114 H Blood Pressure Mean 116 103 Blood Pressure Mean [Right Arm] 128 Pulse Oximetry 98 98 6 L Oxygen Delivery Method Trach Collar Trach Collar Trach Collar Oxygen Flow Rate 6 6 Sepsis Recent Fever Within 48 Hours Sepsis New/Unexplained Change in Mental Status Sepsis Action Taken by Nursing 05/19/20 22:00 05/19/20 22:25 05/19/20 22:30 Temperature Source Pulse Rate 100 H 101 H Pulse Rate [Apical] 101 H Respiratory Rate 40 H 28 H 36 H Respiratory Effort / Characteristics Spontaneous Blood Pressure 151/112 H 161/113 H Blood Pressure [Right Arm] Blood Pressure Mean 117 128 Blood Pressure Mean [Right Arm] Pulse Oximetry 100 99 100 Oxygen Delivery Method Trach Collar Trach Collar Trach Collar Oxygen Flow Rate 6 6 6 Sepsis Recent Fever Within 48 Hours Sepsis New/Unexplained Change in Mental Status Sepsis Action Taken by Nursing 05/19/20 23:19 Temperature Source Pulse Rate Pulse Rate [Apical] 99 H Respiratory Rate 40 H Respiratory Effort / Characteristics Blood Pressure Blood Pressure [Right Arm] 127/106 H Blood Pressure Mean Blood Pressure Mean [Right Arm] 113 Pulse Oximetry Oxygen Delivery Method Trach Collar Oxygen Flow Rate Sepsis Recent Fever Within 48 Hours Sepsis New/Unexplained Change in Mental Status Sepsis Action Taken by Nursing Vital signs reviewed. General: Chronically ill-appearing 69-year-old male, in some respiratory discomfort. HEENT: No scleral icterus, PERRLA, neck supple. Atraumatic. Trach collar. Cardiovascular: Tachycardic with ectopy, no extra sounds Pulmonary: Tachypneic, coarse breath sounds bilaterally, diminished breath sounds. Trach collar at 6 L. Abdomen: Soft, nontender, nondistended, positive bowel sounds. Musculoskeletal: Atraumatic, no peripheral edema. Significant atrophy, contracture of the left upper extremity noted. Neurologic: Patient awake alert and nonverbal. Skin: Warm, dry, no rash. Course Administered Medications Albuterol (Albut/Ipratrop 3mg/0.5mg Neb 3 Ml Vial) 3 ml NEB QIDR OFE Stop: 06/20/20 18:59 Last Admin: 05/23/20 15:15 Dose: 3 ml Documented by: [id number] Admin: 05/23/20 11:18 Dose: 3 ml Documented by: [id number] Admin: 05/23/20 07:09 Dose: 3 ml Documented by: [id number] Admin: 05/22/20 20:09 Dose: 3 ml Documented by: [id number] Admin: 05/22/20 15:34 Dose: 3 ml Documented by: [id number] Admin: 05/22/20 11:15 Dose: 3 ml Documented by: [id number] Admin: 05/22/20 07:59 Dose: 3 ml Documented by: [id number] Admin: 05/21/20 19:57 Dose: 3 ml Documented by: [id number] Ascorbic Acid (Ascorbic Acid 500 Mg Tab) 500 mg GT DAILY OFE Stop: 06/19/20 08:59 Last Admin: 05/23/20 09:11 Dose: 500 mg Documented by: [id number] Admin: 05/22/20 08:31 Dose: 500 mg Documented by: [id number] Admin: 05/21/20 07:29 Dose: 500 mg Documented by: [id number] Admin: 05/20/20 09:21 Dose: 500 mg Documented by: [id number] Aspirin (Aspirin 81 Mg Chew) 81 mg GT DAILY OFE Stop: 06/19/20 08:59 Last Admin: 05/23/20 09:09 Dose: 81 mg Documented by: [id number] Admin: 05/22/20 08:31 Dose: 81 mg Documented by: [id number] Admin: 05/21/20 07:29 Dose: 81 mg Documented by: [id number] Admin: 05/20/20 09:21 Dose: 81 mg Documented by: [id number] Enoxaparin Sodium (Enoxaparin Inj 40 Mg/0.4 Ml Syr) 40 mg SQ BID [facility] Stop: 06/19/20 08:59 Last Admin: 05/23/20 09:12 Dose: 40 mg Documented by: [id number] Admin: 05/22/20 20:31 Dose: 40 mg Documented by: [id number] Admin: 05/22/20 08:34 Dose: 40 mg Documented by: [id number] Admin: 05/21/20 21:36 Dose: 40 mg Documented by: [id number] Admin: 05/21/20 07:32 Dose: 40 mg Documented by: [id number] Admin: 05/20/20 21:56 Dose: 40 mg Documented by: [id number] Admin: 05/20/20 09:21 Dose: 40 mg Documented by: [id number] Enteral Nutritional Formula (Peptamen 1.5 Rohit 1,000 Ml Bag) 1,000 ml PEG UD [facility]; Protocol Stop: 06/19/20 15:14 Last Admin: 05/23/20 06:10 Dose: 1,000 ml Documented by: [id number] Admin: 05/22/20 04:33 Dose: 1,000 ml Documented by: [id number] Admin: 05/20/20 17:12 Dose: 1,000 ml Documented by: [id number] Famotidine (Famotidine 20 Mg Tab) 20 mg JT BID [facility] Stop: 06/19/20 08:59 Last Admin: 05/23/20 09:12 Dose: 20 mg Documented by: [id number] Admin: 05/22/20 20:32 Dose: 20 mg Documented by: [id number] Admin: 05/22/20 08:31 Dose: 20 mg Documented by: [id number] Admin: 05/21/20 21:36 Dose: 20 mg Documented by: [id number] Admin: 05/21/20 07:31 Dose: 20 mg Documented by: [id number] Admin: 05/20/20 21:56 Dose: 20 mg Documented by: [id number] Admin: 05/20/20 09:20 Dose: 20 mg Documented by: [id number] Fentanyl (Fentanyl 12 Mcg/Hr Tdsy) 12 mcg TD Q3D@1800 [facility] Stop: 06/03/20 17:59 Last Admin: 05/20/20 17:15 Dose: 12 mcg Documented by: [id number] Guaifenesin (Guaifenesin Sugar Free 200 Mg/10 Ml Udc) 200 mg PEG Q6H OFE Stop: 06/19/20 18:44 Last Admin: 05/23/20 12:46 Dose: 200 mg Documented by: [id number] Admin: 05/23/20 06:10 Dose: 200 mg Documented by: [id number] Admin: 05/23/20 00:30 Dose: 200 mg Documented by: [id number] Admin: 05/22/20 18:23 Dose: 200 mg Documented by: [id number] Admin: 05/22/20 11:59 Dose: 200 mg Documented by: [id number] Admin: 05/22/20 06:11 Dose: 200 mg Documented by: [id number] Admin: 05/22/20 00:41 Dose: 200 mg Documented by: [id number] Admin: 05/21/20 18:33 Dose: 200 mg Documented by: [id number] Admin: 05/21/20 12:45 Dose: 200 mg Documented by: [id number] Admin: 05/21/20 06:31 Dose: 200 mg Documented by: [id number] Admin: 05/21/20 01:26 Dose: 200 mg Documented by: [id number] Admin: 05/20/20 21:56 Dose: 200 mg Documented by: [id number] Haloperidol Lactate (Haloperidol 2 Mg/1 Ml Udp) 2 mg GT BID OFE Stop: 06/19/20 08:59 Last Admin: 05/23/20 09:11 Dose: 2 mg Documented by: [id number] Admin: 05/22/20 20:31 Dose: 2 mg Documented by: [id number] Admin: 05/22/20 08:33 Dose: 2 mg Documented by: [id number] Admin: 05/21/20 21:35 Dose: 2 mg Documented by: [id number] Admin: 05/21/20 07:31 Dose: 2 mg Documented by: [id number] Admin: 05/20/20 21:56 Dose: 2 mg Documented by: [id number] Admin: 05/20/20 09:21 Dose: 2 mg Documented by: [id number] Remdesivir 100 mg/ Sodium (Chloride) 250 mls @ 250 mls/hr IV Q24H OFE; Protocol Stop: 05/24/20 02:59 Last Infusion: 05/23/20 03:27 Dose: 0 mls/hr Documented by: [id number] Admin: 05/23/20 02:27 Dose: 250 mls/hr Documented by: [id number] Infusion: 05/22/20 04:00 Dose: 0 mls/hr Documented by: [id number] Admin: 05/22/20 02:58 Dose: 250 mls/hr Documented by: [id number] Infusion: 05/21/20 03:26 Dose: 0 mls/hr Documented by: [id number] Admin: 05/21/20 01:26 Dose: 250 mls/hr Documented by: [id number] Dexamethasone Sodium Phosphate (6 mg/ Syringe) 1.5 mls @ 1 mls/min IV DAILY OFE Stop: 06/19/20 08:59 Last Admin: 05/23/20 09:09 Dose: 1 mls/min Documented by: [id number] Admin: 05/22/20 08:36 Dose: 1 mls/min Documented by: [id number] Admin: 05/21/20 07:28 Dose: 1 mls/min Documented by: [id number] Admin: 05/20/20 09:20 Dose: 1 mls/min Documented by: [id number] Insulin Aspart (Insulin Aspart 100 Units/Ml 3 Ml Pen) 0 units SC Q6 OFE Stop: 06/19/20 01:14 Last Admin: 05/23/20 12:58 Dose: 8 units Documented by: [id number] Cosigned by: [id number] Admin: 05/23/20 06:30 Dose: 5 units Documented by: [id number] Cosigned by: [id number] Admin: 05/23/20 00:30 Dose: 8 units Documented by: [id number] Cosigned by: [id number] Admin: 05/22/20 18:43 Dose: 8 units Documented by: [id number] Cosigned by: [id number] Admin: 05/22/20 12:00 Dose: 13 units Documented by: [id number] Cosigned by: [id number] Admin: 05/22/20 06:10 Dose: 2 units Documented by: [id number] Cosigned by: [id number] Admin: 05/22/20 00:35 Dose: 5 units Documented by: [id number] Cosigned by: [id number] Admin: 05/21/20 16:15 Dose: 15 units Documented by: [id number] Cosigned by: [id number] Admin: 05/21/20 12:50 Dose: 4 units Documented by: [id number] Cosigned by: [id number] Admin: 05/21/20 06:25 Dose: Not Given Documented by: [id number] Cosigned by: [id number] Admin: 05/21/20 01:24 Dose: 1 units Documented by: [id number] Cosigned by: [id number] Admin: 05/20/20 17:56 Dose: Not Given Documented by: [id number] Admin: 05/20/20 12:14 Dose: Not Given Documented by: [id number] Admin: 05/20/20 06:34 Dose: 1 units Documented by: [id number] Cosigned by: [id number] Admin: 05/20/20 02:19 Dose: Not Given Documented by: [id number] Cosigned by: [id number] Insulin Glargine (Insulin Glargine Solostar 100 Units/Ml 3 Ml Pen) 12 units SC HS OFE Stop: 06/19/20 20:59 Last Admin: 05/22/20 20:59 Dose: 12 units Documented by: [id number] Cosigned by: [id number] Admin: 05/21/20 21:53 Dose: 12 units Documented by: [id number] Cosigned by: [id number] Admin: 05/20/20 21:57 Dose: 12 units Documented by: [id number] Cosigned by: [id number] Insulin Glargine (Insulin Glargine Solostar 100 Units/Ml 3 Ml Pen) 20 units SQ QAM OFE Stop: 06/21/20 08:59 Last Admin: 05/23/20 10:00 Dose: 20 units Documented by: [id number] Cosigned by: [id number] Admin: 05/22/20 09:01 Dose: 20 units Documented by: [id number] Cosigned by: [id number] Levetiracetam (Levetiracetam Oral Soln 100mg/Ml) 750 mg PEG BID OFE Stop: 06/19/20 08:59 Last Admin: 05/23/20 09:11 Dose: 750 mg Documented by: [id number] Admin: 05/22/20 20:32 Dose: 750 mg Documented by: [id number] Admin: 05/22/20 08:33 Dose: 750 mg Documented by: [id number] Admin: 05/21/20 21:35 Dose: 750 mg Documented by: [id number] Admin: 05/21/20 07:31 Dose: 750 mg Documented by: [id number] Admin: 05/20/20 21:56 Dose: 750 mg Documented by: [id number] Admin: 05/20/20 09:21 Dose: 750 mg Documented by: [id number] Miscellaneous (Fentanyl Patch Remove & Waste) 1 ea N/A Q3D@1759 [facility] Stop: 06/19/20 17:58 Last Admin: 05/20/20 17:42 Dose: 1 ea Documented by: [id number] Cosigned by: [id number] Miscellaneous (Check Fentanyl Patch Placement) 1 ea N/A QS OFE Stop: 06/19/20 00:31 Last Admin: 05/23/20 09:07 Dose: 1 ea Documented by: [id number] Admin: 05/23/20 00:30 Dose: 1 ea Documented by: [id number] Admin: 05/22/20 16:48 Dose: 1 ea Documented by: [id number] Admin: 05/22/20 08:27 Dose: 1 ea Documented by: [id number] Admin: 05/22/20 00:40 Dose: 1 ea Documented by: [id number] Admin: 05/21/20 15:57 Dose: 1 ea Documented by: [id number] Admin: 05/21/20 07:28 Dose: 1 ea Documented by: [id number] Admin: 05/21/20 01:25 Dose: 1 ea Documented by: [id number] Admin: 05/20/20 16:00 Dose: 1 ea Documented by: [id number] Admin: 05/20/20 09:20 Dose: 1 ea Documented by: [id number] Admin: 05/20/20 01:39 Dose: 1 ea Documented by: [id number] Potassium Chloride (Potassium Chloride 20 Meq/15 Ml Udc) 20 meq PEG QAM [facility] Stop: 06/20/20 08:59 Last Admin: 05/23/20 09:10 Dose: 20 meq Documented by: [id number] Admin: 05/22/20 08:33 Dose: 20 meq Documented by: [id number] Admin: 05/21/20 10:37 Dose: 20 meq Documented by: [id number] Sodium Chloride (Sodium Chloride 0.9% 10ml Flush) 30 ml IV Q24H [facility] Stop: 05/24/20 02:01 Last Admin: 05/23/20 02:28 Dose: 30 ml Documented by: [id number] Admin: 05/22/20 02:58 Dose: 30 ml Documented by: [id number] Admin: 05/21/20 01:27 Dose: 30 ml Documented by: [id number] Admin: 05/20/20 02:07 Dose: 30 ml Documented by: [id number] Valproic Acid (Valproic Acid Soln 500 Mg/10 Ml Udc) 500 mg PEG BID OFE Stop: 06/19/20 08:59 Last Admin: 05/23/20 09:10 Dose: 500 mg Documented by: [id number] Admin: 05/22/20 20:32 Dose: 500 mg Documented by: [id number] Admin: 05/22/20 08:32 Dose: 500 mg Documented by: [id number] Admin: 05/21/20 21:37 Dose: 500 mg Documented by: [id number] Admin: 05/21/20 07:31 Dose: 500 mg Documented by: [id number] Admin: 05/20/20 21:56 Dose: 500 mg Documented by: [id number] Admin: 05/20/20 09:21 Dose: 500 mg Documented by: [id number] Vitamin D (Cholecalciferol 1,000 Units 25 Mcg Tab) 5,000 units PEG DAILY OFE Stop: 06/19/20 08:59 Last Admin: 05/23/20 09:10 Dose: 5,000 units Documented by: [id number] Admin: 05/22/20 08:32 Dose: 5,000 units Documented by: [id number] Admin: 05/21/20 07:29 Dose: 5,000 units Documented by: [id number] Admin: 05/20/20 09:21 Dose: 5,000 units Documented by: [id number] Zinc Sulfate (Zinc Sulfate 220 Mg Capsule) 220 mg GT BID OFE Stop: 06/19/20 08:59 Last Admin: 05/23/20 09:09 Dose: 220 mg Documented by: [id number] Admin: 05/22/20 20:32 Dose: 220 mg Documented by: [id number] Admin: 05/22/20 08:36 Dose: 220 mg Documented by: [id number] Admin: 05/21/20 21:36 Dose: 220 mg Documented by: [id number] Admin: 05/21/20 07:30 Dose: 220 mg Documented by: [id number] Admin: 05/20/20 21:56 Dose: 220 mg Documented by: [id number] Admin: 05/20/20 09:21 Dose: 220 mg Documented by: [id number] Discontinued Medications Dexamethasone (Dexamethasone Sod Inj 10 Mg/Ml Vial) 6 mg IV NOW ONE Stop: 05/19/20 22:32 Last Admin: 05/19/20 22:56 Dose: 6 mg Documented by: [id number] Furosemide (Furosemide 20 Mg Tab) 20 mg PO NOW ONE Stop: 05/21/20 18:15 Last Admin: 05/21/20 19:32 Dose: 20 mg Documented by: [id number] Furosemide (Furosemide 20 Mg Tab) 20 mg PO NOW ONE Stop: 05/22/20 15:35 Last Admin: 05/22/20 16:48 Dose: 20 mg Documented by: [id number] Sodium Chloride (Nss 1000ml) 1,000 mls @ 125 mls/hr IV .Q8H OFE Stop: 05/20/20 03:59 Last Infusion: 05/20/20 01:45 Dose: 0 mls/hr Documented by: [id number] Admin: 05/19/20 20:02 Dose: 125 mls/hr Documented by: [id number] Sodium Chloride (Nss 1000ml) 500 mls @ 999 mls/hr IV .Q31M ONE Stop: 05/19/20 21:14 Last Infusion: 05/19/20 22:10 Dose: 0 mls/hr Documented by: [id number] Admin: 05/19/20 21:40 Dose: 999 mls/hr Documented by: [id number] Vancomycin HCl 1,500 mg/ (Sodium Chloride) 530 mls @ 200 mls/hr IV NOW ONE Stop: 05/20/20 00:16 Last Infusion: 05/20/20 01:39 Dose: 0 mls/hr Documented by: [id number] Admin: 05/19/20 22:27 Dose: 200 mls/hr Documented by: [id number] Cefepime HCl (Maxipime) 2,000 mg in 20 mls @ 5 mls/min IV NOW STA; Protocol Stop: 05/19/20 21:41 Last Admin: 05/19/20 22:25 Dose: 5 mls/min Documented by: [id number] Remdesivir 200 mg/ Sodium (Chloride) 250 mls @ 125 mls/hr IV ONE ONE; Protocol Stop: 05/20/20 03:59 Last Infusion: 05/20/20 04:31 Dose: 0 mls/hr Documented by: [id number] Admin: 05/20/20 02:08 Dose: 125 mls/hr Documented by: [id number] Furosemide 20 mg/ Syringe 2 mls @ 4 mls/min IV ONE ONE Stop: 05/20/20 01:16 Last Admin: 05/20/20 02:06 Dose: 4 mls/min Documented by: [id number] Furosemide 20 mg/ Syringe 2 mls @ 4 mls/min IV TODAY@2100 [facility] Stop: 05/20/20 21:01 Last Admin: 05/20/20 21:57 Dose: 4 mls/min Documented by: [id number] Influenza Virus Vaccine Quadrival (Influenza Virus Quad Vaccine 0.5 Ml Syr) 0.5 ml IM .ONCE ONE Stop: 05/20/20 08:01 Last Admin: 05/21/20 15:56 Dose: Not Given Documented by: [id number] Insulin Glargine (Insulin Glargine Solostar 100 Units/Ml 3 Ml Pen) 16 units SQ QAM [facility] Stop: 06/19/20 08:59 Last Admin: 05/21/20 09:15 Dose: 16 units Documented by: [id number] Cosigned by: [id number] Admin: 05/20/20 09:15 Dose: 16 units Documented by: [id number] Cosigned by: [id number] Ioversol (Optiray 320 125ml) 119 ml IV ONCE ONE Stop: 05/19/20 21:20 Last Admin: 05/19/20 21:26 Dose: 119 ml Documented by: [id number] Pneumococcal Polyvalent Vaccine (Pneumococcal Polysaccharides 25 Mcg/0.5 Ml Vial/Syr) 25 mcg IM .ONCE ONE Stop: 05/20/20 08:01 Last Admin: 05/21/20 15:57 Dose: Not Given Documented by: [id number] Critical Care Time Critical Care Time: Yes Total Critical Care Time: 40 I have personally spent greater than 40 minutes of critical care time in the direct management of this patient. This includes bedside care, interpretation of diagnostic studies, and testing, discussion with consultants, patient, and family members, and other required patient management activities. This 40 minutes is in excess of all separately billable procedures. Medical Decision Making Differential Diagnosis Covid, reactive airway disease, pneumonia, pneumothorax, COPD, CHF, infections, cardiac ischemia, pulmonary embolism, musculoskeletal, gastrointestinal, as well as other pathologies. Medical Records Attestation: I reviewed the patient's medical records. Home Medications Current Medication List: was personally reviewed by me Laboratory Data Attestation: I reviewed the patient's lab results. Result diagrams: 05/21/20 06:44 05/23/20 06:40 Lab Results 05/19/20 05/19/20 05/19/20 Range/Units 19:58 19:58 19:58 WBC 9.48 (4.8-10.8) K/uL RBC 4.46 L (4.7-6.1) M/uL Hgb 12.6 L (14.0-18.0) g/dL Hct 41.7 L (42-52) % MCV 93.5 (80-100) fL MCH 28.3 (25-34) pg MCHC 30.2 L (32-36) g/dL RDW Std Deviation 54.7 H (36.4-46.3) fL RDW Coeff of Kasey 16.1 H (11.5-14.5) % Plt Count 256 (130-400) K/uL MPV 9.7 (7.4-10.4) fL Immature Gran % (Auto) 4.7 % Neut % (Auto) 72.0 % Lymph % (Auto) 15.3 % Mcminn % (Auto) 7.2 % Eos % (Auto) 0.5 % Baso % (Auto) 0.3 % Neut # (Auto) 6.82 H (1.4-6.5) K/uL Lymph # (Auto) 1.45 (1.2-3.4) K/uL Mcminn # (Auto) 0.68 H (0.11-0.59) K/uL Eos # (Auto) 0.05 (0-0.5) K/uL Baso # (Auto) 0.03 (0-0.2) K/uL Immature Gran # (Auto) 0.45 H (0.00-0.02) K/uL Absolute Nucleated RBC 0.10 H (0-0) K/uL Nucleated RBC % (auto) 1.0 % ESR 36 H (0-14) mm/hr PT 11.4 (9.0-12.0) Seconds INR 1.1 (0.9-1.1) APTT 25.7 (21.0-31.0) Seconds PTT Ratio 0.9 D-Dimer 29693 H* (0-500) ug/L FEU ABG pH (7.35-7.45) ABG pCO2 (35-46) mmHg ABG pO2 (80-95) mmHg ABG HCO3 (19-24) mmol/L ABG O2 Saturation (90-95) % ABG Base Excess (-9-1.8) mEq/L Yves Test (Pos) Barometric Pressure mm/Hg Oxygen Given Sodium (136-145) mmol/L Potassium (3.5-5.1) mmol/L Chloride (98-107) mmol/L Carbon Dioxide (21-32) mmol/L Anion Gap (3-11) BUN (7-18) mg/dl Creatinine (0.6-1.4) mg/dl Est Cr Clr Drug Dosing Est GFR ( Amer) Est GFR (Non-Af Amer) BUN/Creatinine Ratio (10-20) Glucose (70-99) mg/dl Lactate (0.4-2.0) mmol/L Calcium (8.5-10.1) mg/dl Phosphorus (2.5-4.9) mg/dl Magnesium (1.8-2.4) mg/dl Ferritin (8-388) ng/ml Total Bilirubin (0.2-1) mg/dl AST (15-37) U/L ALT (12-78) U/L Alkaline Phosphatase (45-117) U/L Troponin I (0-0.045) ng/ml C-Reactive Protein (0-0.29) mg/dl NT-Pro-B Natriuret Pep (0-900) pg/ml Total Protein (6.4-8.2) gm/dl Albumin (3.4-5.0) gm/dl Globulin (2.5-4.0) gm/dl Albumin/Globulin Ratio (0.9-2) Procalcitonin (0-0.5) ng/ml Specimen Hemolysis Urine Color Urine Appearance (Clear) Urine pH (4.5-7.5) Ur Specific [place] (1.000-1.030) Urine Protein (Negative) Urine Glucose (UA) (Negative) Urine Ketones (Negative) Urine Blood (Negative) Urine Nitrite (Negative) Urine Bilirubin (Negative) Urine Urobilinogen (Negative) Ur Leukocyte Esterase (Negative) Urine RBC (0-4) /hpf Urine WBC (0-5) /hpf Ur Epithelial Cells (0-5) /lpf Other Crystals (None Prsent) Urine Bacteria (Negative) COVID-19 Eval Order SARS-CoV-2, RNA, NAAT (NEGATIVE) Bld Cult Staph aureus PCR (Negative) Blood Culture MRSA PCR (Negative) Blood Type Antibody Screen 05/19/20 05/19/20 05/19/20 Range/Units 19:58 19:58 19:58 WBC (4.8-10.8) K/uL RBC (4.7-6.1) M/uL Hgb (14.0-18.0) g/dL Hct (42-52) % MCV (80-100) fL MCH (25-34) pg MCHC (32-36) g/dL RDW Std Deviation (36.4-46.3) fL RDW Coeff of Kasey (11.5-14.5) % Plt Count (130-400) K/uL MPV (7.4-10.4) fL Immature Gran % (Auto) % Neut % (Auto) % Lymph % (Auto) % Mcminn % (Auto) % Eos % (Auto) % Baso % (Auto) % Neut # (Auto) (1.4-6.5) K/uL Lymph # (Auto) (1.2-3.4) K/uL Mcminn # (Auto) (0.11-0.59) K/uL Eos # (Auto) (0-0.5) K/uL Baso # (Auto) (0-0.2) K/uL Immature Gran # (Auto) (0.00-0.02) K/uL Absolute Nucleated RBC (0-0) K/uL Nucleated RBC % (auto) % ESR (0-14) mm/hr PT (9.0-12.0) Seconds INR (0.9-1.1) APTT (21.0-31.0) Seconds PTT Ratio D-Dimer (0-500) ug/L FEU ABG pH (7.35-7.45) ABG pCO2 (35-46) mmHg ABG pO2 (80-95) mmHg ABG HCO3 (19-24) mmol/L ABG O2 Saturation (90-95) % ABG Base Excess (-9-1.8) mEq/L Yves Test (Pos) Barometric Pressure mm/Hg Oxygen Given Sodium 139 (136-145) mmol/L Potassium 4.2 (3.5-5.1) mmol/L Chloride 102 (98-107) mmol/L Carbon Dioxide 32 (21-32) mmol/L Anion Gap 5.0 (3-11) BUN 33 H (7-18) mg/dl Creatinine 0.83 (0.6-1.4) mg/dl Est Cr Clr Drug Dosing Not Reportable Est GFR ( Amer) 102.6 Est GFR (Non-Af Amer) 88.5 BUN/Creatinine Ratio 40.1 H (10-20) Glucose 188 H (70-99) mg/dl Lactate 4.3 H* (0.4-2.0) mmol/L Calcium 8.8 (8.5-10.1) mg/dl Phosphorus 2.8 (2.5-4.9) mg/dl Magnesium 2.2 (1.8-2.4) mg/dl Ferritin 557.5 H (8-388) ng/ml Total Bilirubin 0.2 (0.2-1) mg/dl AST 44 H (15-37) U/L ALT 35 (12-78) U/L Alkaline Phosphatase 91 (45-117) U/L Troponin I 0.025 (0-0.045) ng/ml C-Reactive Protein 10.10 H (0-0.29) mg/dl NT-Pro-B Natriuret Pep 1495 H (0-900) pg/ml Total Protein 6.6 (6.4-8.2) gm/dl Albumin 1.6 L (3.4-5.0) gm/dl Globulin 5.0 H (2.5-4.0) gm/dl Albumin/Globulin Ratio 0.3 L (0.9-2) Procalcitonin 0.22 (0-0.5) ng/ml Specimen Hemolysis Urine Color Urine Appearance (Clear) Urine pH (4.5-7.5) Ur Specific [place] (1.000-1.030) Urine Protein (Negative) Urine Glucose (UA) (Negative) Urine Ketones (Negative) Urine Blood (Negative) Urine Nitrite (Negative) Urine Bilirubin (Negative) Urine Urobilinogen (Negative) Ur Leukocyte Esterase (Negative) Urine RBC (0-4) /hpf Urine WBC (0-5) /hpf Ur Epithelial Cells (0-5) /lpf Other Crystals (None Prsent) Urine Bacteria (Negative) COVID-19 Eval Order SARS-CoV-2, RNA, NAAT (NEGATIVE) Bld Cult Staph aureus PCR (Negative) Blood Culture MRSA PCR (Negative) Blood Type Antibody Screen 05/19/20 05/19/20 05/19/20 Range/Units 19:58 22:15 22:15 WBC (4.8-10.8) K/uL RBC (4.7-6.1) M/uL Hgb (14.0-18.0) g/dL Hct (42-52) % MCV (80-100) fL MCH (25-34) pg MCHC (32-36) g/dL RDW Std Deviation (36.4-46.3) fL RDW Coeff of Kasey (11.5-14.5) % Plt Count (130-400) K/uL MPV (7.4-10.4) fL Immature Gran % (Auto) % Neut % (Auto) % Lymph % (Auto) % [place] % (Auto) % Eos % (Auto) % Baso % (Auto) % Neut # (Auto) (1.4-6.5) K/uL Lymph # (Auto) (1.2-3.4) K/uL [place] # (Auto) (0.11-0.59) K/uL Eos # (Auto) (0-0.5) K/uL Baso # (Auto) (0-0.2) K/uL Immature Gran # (Auto) (0.00-0.02) K/uL Absolute Nucleated RBC (0-0) K/uL Nucleated RBC % (auto) % ESR (0-14) mm/hr PT (9.0-12.0) Seconds INR (0.9-1.1) APTT (21.0-31.0) Seconds PTT Ratio D-Dimer (0-500) ug/L FEU ABG pH (7.35-7.45) ABG pCO2 (35-46) mmHg ABG pO2 (80-95) mmHg ABG HCO3 (19-24) mmol/L ABG O2 Saturation (90-95) % ABG Base Excess (-9-1.8) mEq/L Yves Test (Pos) Barometric Pressure mm/Hg Oxygen Given Sodium (136-145) mmol/L Potassium (3.5-5.1) mmol/L Chloride (98-107) mmol/L Carbon Dioxide (21-32) mmol/L Anion Gap (3-11) BUN (7-18) mg/dl Creatinine (0.6-1.4) mg/dl Est Cr Clr Drug Dosing Est GFR ( Amer) Est GFR (Non-Af Amer) BUN/Creatinine Ratio (10-20) Glucose (70-99) mg/dl Lactate (0.4-2.0) mmol/L Calcium (8.5-10.1) mg/dl Phosphorus (2.5-4.9) mg/dl Magnesium (1.8-2.4) mg/dl Ferritin (8-388) ng/ml Total Bilirubin (0.2-1) mg/dl AST (15-37) U/L ALT (12-78) U/L Alkaline Phosphatase (45-117) U/L Troponin I (0-0.045) ng/ml C-Reactive Protein (0-0.29) mg/dl NT-Pro-B Natriuret Pep (0-900) pg/ml Total Protein (6.4-8.2) gm/dl Albumin (3.4-5.0) gm/dl Globulin (2.5-4.0) gm/dl Albumin/Globulin Ratio (0.9-2) Procalcitonin (0-0.5) ng/ml Specimen Hemolysis Urine Color Urine Appearance (Clear) Urine pH (4.5-7.5) Ur Specific [place] (1.000-1.030) Urine Protein (Negative) Urine Glucose (UA) (Negative) Urine Ketones (Negative) Urine Blood (Negative) Urine Nitrite (Negative) Urine Bilirubin (Negative) Urine Urobilinogen (Negative) Ur Leukocyte Esterase (Negative) Urine RBC (0-4) /hpf Urine WBC (0-5) /hpf Ur Epithelial Cells (0-5) /lpf Other Crystals (None Prsent) Urine Bacteria (Negative) COVID-19 Eval Order Covid19 [facility] SARS-CoV-2, RNA, NAAT POSITIVE A* (NEGATIVE) Bld Cult Staph aureus PCR Negative (Negative) Blood Culture MRSA PCR Negative (Negative) Blood Type Antibody Screen 11/19/20 11/19/20 11/19/20 Range/Units 22:20 22:20 22:51 WBC (4.8-10.8) K/uL RBC (4.7-6.1) M/uL Hgb (14.0-18.0) g/dL Hct (42-52) % MCV (80-100) fL MCH (25-34) pg MCHC (32-36) g/dL RDW Std Deviation (36.4-46.3) fL RDW Coeff of Kasey (11.5-14.5) % Plt Count (130-400) K/uL MPV (7.4-10.4) fL Immature Gran % (Auto) % Neut % (Auto) % Lymph % (Auto) % [place]min[place] % (Auto) % Eos % (Auto) % Baso % (Auto) % Neut # (Auto) (1.4-6.5) K/uL Lymph # (Auto) (1.2-3.4) K/uL [place] # (Auto) (0.11-0.59) K/uL Eos # (Auto) (0-0.5) K/uL Baso # (Auto) (0-0.2) K/uL Immature Gran # (Auto) (0.00-0.02) K/uL Absolute Nucleated RBC (0-0) K/uL Nucleated RBC % (auto) % ESR (0-14) mm/hr PT (9.0-12.0) Seconds INR (0.9-1.1) APTT (21.0-31.0) Seconds PTT Ratio D-Dimer (0-500) ug/L FEU ABG pH 7.51 H* (7.35-7.45) ABG pCO2 35 (35-46) mmHg ABG pO2 57 L (80-95) mmHg ABG HCO3 27 H (19-24) mmol/L ABG O2 Saturation 89.6 L (90-95) % ABG Base Excess 4.3 H (-9-1.8) mEq/L Yves Test Pos (Pos) Barometric Pressure 741.6 mm/Hg Oxygen Given 6L Sodium (136-145) mmol/L Potassium (3.5-5.1) mmol/L Chloride (98-107) mmol/L Carbon Dioxide (21-32) mmol/L Anion Gap (3-11) BUN (7-18) mg/dl Creatinine (0.6-1.4) mg/dl Est Cr Clr Drug Dosing Est GFR ( Amer) Est GFR (Non-Af Amer) BUN/Creatinine Ratio (10-20) Glucose (70-99) mg/dl Lactate 2.1 H* (0.4-2.0) mmol/L Calcium (8.5-10.1) mg/dl Phosphorus (2.5-4.9) mg/dl Magnesium (1.8-2.4) mg/dl Ferritin (8-388) ng/ml Total Bilirubin (0.2-1) mg/dl AST (15-37) U/L ALT (12-78) U/L Alkaline Phosphatase (45-117) U/L Troponin I (0-0.045) ng/ml C-Reactive Protein (0-0.29) mg/dl NT-Pro-B Natriuret Pep (0-900) pg/ml Total Protein (6.4-8.2) gm/dl Albumin (3.4-5.0) gm/dl Globulin (2.5-4.0) gm/dl Albumin/Globulin Ratio (0.9-2) Procalcitonin (0-0.5) ng/ml Specimen Hemolysis Urine Color Urine Appearance (Clear) Urine pH (4.5-7.5) Ur Specific [place] (1.000-1.030) Urine Protein (Negative) Urine Glucose (UA) (Negative) Urine Ketones (Negative) Urine Blood (Negative) Urine Nitrite (Negative) Urine Bilirubin (Negative) Urine Urobilinogen (Negative) Ur Leukocyte Esterase (Negative) Urine RBC (0-4) /hpf Urine WBC (0-5) /hpf Ur Epithelial Cells (0-5) /lpf Other Crystals (None Prsent) Urine Bacteria (Negative) COVID-19 Eval Order SARS-CoV-2, RNA, NAAT (NEGATIVE) Bld Cult Staph aureus PCR (Negative) Blood Culture MRSA PCR (Negative) Blood Type O Positive Antibody Screen NEGATIVE 05/19/20 Range/Units 23:00 WBC (4.8-10.8) K/uL RBC (4.7-6.1) M/uL Hgb (14.0-18.0) g/dL Hct (42-52) % MCV (80-100) fL MCH (25-34) pg MCHC (32-36) g/dL RDW Std Deviation (36.4-46.3) fL RDW Coeff of Kasey (11.5-14.5) % Plt Count (130-400) K/uL MPV (7.4-10.4) fL Immature Gran % (Auto) % Neut % (Auto) % Lymph % (Auto) % [place] % (Auto) % Eos % (Auto) % Baso % (Auto) % Neut # (Auto) (1.4-6.5) K/uL Lymph # (Auto) (1.2-3.4) K/uL [place] # (Auto) (0.11-0.59) K/uL Eos # (Auto) (0-0.5) K/uL Baso # (Auto) (0-0.2) K/uL Immature Gran # (Auto) (0.00-0.02) K/uL Absolute Nucleated RBC (0-0) K/uL Nucleated RBC % (auto) % ESR (0-14) mm/hr PT (9.0-12.0) Seconds INR (0.9-1.1) APTT (21.0-31.0) Seconds PTT Ratio D-Dimer (0-500) ug/L FEU ABG pH (7.35-7.45) ABG pCO2 (35-46) mmHg ABG pO2 (80-95) mmHg ABG HCO3 (19-24) mmol/L ABG O2 Saturation (90-95) % ABG Base Excess (-9-1.8) mEq/L Yves Test (Pos) Barometric Pressure mm/Hg Oxygen Given Sodium (136-145) mmol/L Potassium (3.5-5.1) mmol/L Chloride (98-107) mmol/L Carbon Dioxide (21-32) mmol/L Anion Gap (3-11) BUN (7-18) mg/dl Creatinine (0.6-1.4) mg/dl Est Cr Clr Drug Dosing Est GFR ( Amer) Est GFR (Non-Af Amer) BUN/Creatinine Ratio (10-20) Glucose (70-99) mg/dl Lactate (0.4-2.0) mmol/L Calcium (8.5-10.1) mg/dl Phosphorus (2.5-4.9) mg/dl Magnesium (1.8-2.4) mg/dl Ferritin (8-388) ng/ml Total Bilirubin (0.2-1) mg/dl AST (15-37) U/L ALT (12-78) U/L Alkaline Phosphatase (45-117) U/L Troponin I (0-0.045) ng/ml C-Reactive Protein (0-0.29) mg/dl NT-Pro-B Natriuret Pep (0-900) pg/ml Total Protein (6.4-8.2) gm/dl Albumin (3.4-5.0) gm/dl Globulin (2.5-4.0) gm/dl Albumin/Globulin Ratio (0.9-2) Procalcitonin (0-0.5) ng/ml Specimen Hemolysis Urine Color Yellow Urine Appearance Clear (Clear) Urine pH 8.0 H (4.5-7.5) Ur Specific [place] 1.015 (1.000-1.030) Urine Protein Negative (Negative) Urine Glucose (UA) Negative (Negative) Urine Ketones Negative (Negative) Urine Blood Trace H (Negative) Urine Nitrite Negative (Negative) Urine Bilirubin Negative (Negative) Urine Urobilinogen Negative (Negative) Ur Leukocyte Esterase Negative (Negative) Urine RBC 0-4 (0-4) /hpf Urine WBC 0-5 (0-5) /hpf Ur Epithelial Cells 0-5 (0-5) /lpf Other Crystals Hippuric Acid A (None Prsent) Urine Bacteria Negative (Negative) COVID-19 Eval Order SARS-CoV-2, RNA, NAAT (NEGATIVE) Bld Cult Staph aureus PCR (Negative) Blood Culture MRSA PCR (Negative) Blood Type Antibody Screen Imaging Data Radiologist's Impression: XR chest 1V portable HISTORY: Dyspnea COMPARISON: Chest 01/24/2020. FINDINGS: Tracheostomy tube appears in good position. There are low lung volumes. No pneumothorax. No pleural effusions. The heart remains stable in size. Diffuse interstitial thickening and bilateral hazy airspace opacities have slightly improved. IMPRESSION: Diffuse interstitial thickening and bilateral hazy airspace opacities. This has slightly improved in the interval. This could represent pulmonary edema or a pneumonia. ACT 112: Negative or not required by law. Electronically signed by: Heath Pham M.D. 05/19/2020 8:47 PM Dictated: 05/19/202044Transcribed: 05/19/202044 CTA: No central or large pulmonary embolus identified. Evaluation of the pulmonary arterial branches is limited by significant motion artifact. No aortic aneurysm or dissection. Mild ectasia of the descending thoracic aorta. Extensive patchy groundglass opacities and densities throughout the lungs, compatible with infectious/inflammatory process such as COVID-19 infection. Trace pleural effusion. Nonspecific prominent mediastinal and hilar lymph nodes. Tracheostomy tube in place. Mild bilateral gynecomastia. Evaluation of the stomach is limited by under distention. Radiologist Danae Rahman MD ECG Data Attestation: I personally reviewed and interpreted this ECG as follows: Indication: + SOB/dyspnea Rate (beats per minute): 104 Rhythm: + sinus tachycardia ECG Intervals/blocks: + Prolonged QT (462) ECG [place]: + Left axis deviation ECG ST segments: + Nonspecific ST abnormalities ECG Findings: + Q waves and + PVCs Blood Pressure Blood Pressure Findings: Elevated blood pressure Blood Pressure Disposition: further management by hospitalist FELIPA Narrative This pt was evaluated and appeared to have labored breathing with tachypnea despite trach collar at 6L which is reportedly his baseline. Pt was in isolation as he is reportedly COVID + per SNF. IV access was obtained and lab work was drawn. IVF were initiated. An order for cardiac monitoring was placed and the pt is noted to be in a ST at 101. Lab work reveals a normal WBC with lactate of 4.3, elevated d-dimer 28,000, and + COVID verified. CXR is highly concerning for patchy B infiltrates. CTA was performed as pt was anticoagulated with + d-dimer and is negative for PE, but confirms extensive patchy groundglass opacities and densities throughout the lungs. Pt was medicated with decadron, vancomycin and cefepime. An attempt was made to switch the pt to bipap however respiratory pointed out that the pt's trach was not cuffed. This was discussed with the admitting physician Dr Menard who will take over management. Pt was oxygenating resonably well with trach collar at time of hand off. Pt is a full code per SNF paperwork. Impression & Plan Pneumonia due to COVID-19 virus, Tracheostomy dependent, Tachypnea, Schizophrenia Discharge Plan Visit Data Chief Complaint: Shortness of Breath/Dyspnea Stated Complaint: +COVID/PNEUMONIA ED Provider: Jesi Royal Discharge Problem: Pneumonia due to COVID-19 virus, Tracheostomy dependent, Tachypnea, Schizophrenia Patient Disposition: Admitted As Inpatient Discharge Instructions Interventions: ED Discharge Assessment Last Done: 05/20/20 00:05 Discharge Problem: Schizophrenia Qualifiers: Schizophrenia type: unspecified Qualified Code(s): F20.9 - Schizophrenia, unspecified
[2020-05-20] MEDS ORDERED: FUROSEMIDE 20 MG in SYRINGE 0 ML IV ONE (01:15)
--- NOTE | 2020-05-20 01:20 | History & Physical Report ---
Date of Service May 19, 2020 Assessment & Plan (1) Pneumonia due to COVID-19 virus: Patient tachypneic, low PO2 on ABG despite supplemental O2. Saturations, however, >95% on trach collar -6L which is reported to be his baseline. BiPAP was initially being considered in the ER for incresaed work of breathing, however, patient has an un-cuffed tracheostomy in place which would not likely support positive pressure. Patient's RR improved. He does not currently appear to be in respiratory distress. He continues to maintain his saturations. CT with diffuse groundglass opacities in bilateral lung honeycutt. Also small pleural effusions, ?some pulmonary edema as well as patient's Covid-19 infection -Admit to Covid unit, maintain isolation precautions - Airborne and Contact -Lasix 20mg IV x 1 -Will initiate Remdesivir therapy per protocol. Pulmonary consultation ordered as well -Dexamethasone 6mg IV daily -Convalescent plasma - discussed therapies with patient's brother and POA who was in agreement -May need additional dose of Lasix after transfusion -Zinc, Vitamin C, Vitamin D daily -Lovenox 40 BID -Tylenol as needed for fever -Uncertain if patient with bacterial PNA as well - do not strongly suspect at this time - Procal is negative, no leukocytosis. Will check sputum culture, MRSA swab. He received Vancomycin and Cefepime in ER - will hold off on additional antibiotics at this time Present on Admission?: Yes (2) Tachypnea: As above. Most likely multifactorial, patient with chronic hypoxic respiratory failure at baseline, trach dependent on chronic O2. +Covid-19 with diffuse groundglass opacities. Possible pulmonary edema as well -Management as above -Pulmonary consultation -Treatment of pain and anxiety as well Present on Admission?: Yes (3) Schizophrenia: With behavioral disturbances in the past. Patient was evaluated by Psychiatry at last visit -Continue Haldol 2mg PEG BID -Frequent orientation Present on Admission?: Yes (4) Aortic stenosis: Severe -Maintain euvolemia. Avoid reduction in preload Present on Admission?: Yes (5) H/O: stroke with residual effects: Noted -Continue ASA Present on Admission?: Yes (6) Dementia: Thought to be vascular in nature -Frequent orientation Present on Admission?: Yes (7) Seizure disorder: Chronic -Valproic acid 500mg per PEG BID -Keppra 750mg per PEG BID Present on Admission?: Yes (8) Diabetes: Chronic -Lantus 16u qAM -ISS -Goal blood sugar 100 - 180 in critically ill -Glucerna feeds as tolerated Present on Admission?: Yes (9) Coronary artery disease: Uncertain of details. No prior stents or CABG. Echo from 01/04/20 wtih normal EF, severe aortic stenosis -monitor -Continue ASA 81mg po daily Present on Admission?: Yes (10) GERD (gastroesophageal reflux disease): Chronic -Will give Pepcid 20mg per PEG BID Present on Admission?: Yes (11) Anemia: Chronic. Stable. No active bleeding suspected -Continue to monitor H/H F/E/N - Lasix 20mg IV x 1 given, monitor output, electrolytes WNL, NPO for now - if patient stable would resume tube feeds tomorrow - per review of [facility] records he has been on Glucerna 1.2 at 70mL/hr by pump with H20 flush 30mL with medications. Feeds to be held if >50mL residual volume. Also on Liquid protein supplement Ppx - Lovenox 40 BID, Pepcid as above Code - Full per discussion with patient's brother and POA. I did discuss with him that patient is at acute risk for decompensation with Covid-19 and that his respiratory function is already quite compromised Dispo - Admit to PCU Present on Admission?: Yes Admission and Anticipated Discharge Date Admission Date: May 19, 2020 History of Present Illness Chief Complaint: tachypnea Primary Care Provider: [facility] Patient is minimally verbal at baseline and unable to provide details of events prior to arrival to [facility]. History obtained through discussion with ER attending, chart review and discussion with patient's brother, Octaviano Hinojosa. Fede Hinojosa is a 69yo male with history of dementia, diabetes, HTN, schizoaffective disorder and seizures presenting from [facility] with Covid-19 PNA, tachypnea. Patient with prolonged and complicated hospital stay at [facility] from 01/04/20 - 01/25/20 when he was admitted with lethargy, hypoxia, metabolic encephalopathy secondary to PNA. Patient developed acute hypoxic respiratory failure and was intubated. He was unable to be weaned from the vent and subsequently had percutaneous tracheostomy placed on 01/15/20. Patient with quinolone resistant E. coli bacteremia and UTI as well as ESBL Klebsiella sputum. He was treated with Ceftolazone. 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 [facility]. Per patient's brother, patient was diagnosed with Covid-19 a few days ago. He had a d-dimer test that was markedly elevated. Brother was told that patient had a blood clot and was being started on Lovenox. Patient's brother insisted that patient be sent to [facility] for further evaluation. Per review of records, patient HAS NOT been hypoxic. Report that he is on trach collar 6L/min at baseline. He has been noted to be more tachypneic, however. Upon arrival to [facility] patient afebrile, tachycardic at 100bpm, BP slightly elevated, TACHYPNEIC at 40bpm, adequate saturation on 6L TC ER Course: Cefepime 2gm, Vancomycin 1500mg, NSS x 500mL, Dexamethasone 6mg IV Allergies Allergy/AdvReac Type Severity Reaction Status Date / Time No Known Allergies Allergy Unverified 05/19/20 22:59 Home Medications Medication Instructions Recorded Confirmed Type aspirin 81 mg FEEDING TUBE DAILY #90 tab 01/25/20 05/19/20 Rx fentanyl 12 mcg TRANSDERMAL Q72H #10 patch 01/25/20 05/19/20 Rx haloperidol 2 mg FEEDING TUBE BID #60 tab 01/25/20 05/19/20 Rx polyethylene glycol 3350 [Miralax] 17 g PEG DAILY #30 ea 01/25/20 05/19/20 Rx Azithromycin Packet 250 mg G-TUBE .DAILY FOR 4 DAYS 05/19/20 05/19/20 History Ferrous Sulfate Liquid 300 mg PEG BID 05/19/20 05/19/20 History Guaifenesin Belinda 200mg/10ml 10 ml G-TUBE BID 05/19/20 05/19/20 History Keppra Solution 100mg/Ml 750 mg G-TUBE BID 05/19/20 05/19/20 History Liquid Protein Supp 30 ml G-TUBE BID 05/19/20 05/19/20 History Pantoprazole 2mg/Ml 40 mg PEG QAM 05/19/20 05/19/20 History Valproic Acid Belinda 250mg/5ml 500 mg PO BID 05/19/20 05/19/20 History acetaminophen [Tylenol] 650 mg FEEDING TUBE Q6 PRN 05/19/20 05/19/20 History ascorbic acid (vitamin C) [Vitamin 500 mg FEEDING TUBE DAILY 05/19/20 05/19/20 History C] cholecalciferol (vitamin D3) 125 mcg FEEDING TUBE DAILY 05/19/20 05/19/20 His tory [Vitamin D3] enoxaparin 40 mg SUBCUT DAILY 05/19/20 05/19/20 History hydrocortisone [Anusol-HC] 1 ea [place] Q12 PRN 05/19/20 05/19/20 History insulin glargine [Lantus Solostar 16 unit SUBCUT QAM 05/19/20 05/19/20 History U-100 Insulin] insulin lispro 1 sliding scale dose SUBCUT 05/19/20 05/19/20 History USEASDIRECTD magnesium hydroxide [Milk of 30 ml FEEDING TUBE UD PRN 05/19/20 05/19/20 History Magnesia] nut.tx.gluc intol,lf,soy-fiber 1 ea FEEDING TUBE UD 05/19/20 05/19/20 History [Glucerna 1.2 Rohit] tramadol 50 mg FEEDING TUBE Q4 PRN 05/19/20 05/19/20 History zinc 50 mg FEEDING TUBE BID 05/19/20 05/19/20 History Past Med/Surg History Medical History (Updated 05/20/20 @ 02:05 by Lavinia Menard DO) Alzheimer disease Chronic gout Chronic prescription opiate use Dementia Diabetes Gastrointestinal hemorrhage GERD (gastroesophageal reflux disease) Goals of care, counseling/discussion Hypertension Muscle weakness Peripheral vascular disease Schizoaffective disorder, chronic condition Seizure disorder Stroke Urinary tract infection Surgical History (Updated 05/20/20 @ 01:20 by Lavinia Menard DO) Status post insertion of percutaneous endoscopic gastrostomy (PEG) tube Tracheostomy in place Family History (Updated 05/20/20 @ 01:20 by Lavinia Menard DO) Other No significant family history Social History Smoking Status: Unknown if ever smoked Communication Ability: Unable Current Living Situation: [facility] Feels Safe at Home: Yes Assistive Devices: Oxygen - Continuous Review of Systems Review of Systems: All systems reviewed & are unremarkable except as noted in HPI & below Physical Exam Physical Exam: General: patient nonverbal, does not follow commands Skin: warm, sacral redness, no rash HEENT: NC/AT, PERRL, anicteric sclera, conjunctiva without injection, external ear normal to inspection and nontender, nares patent, moist mucus membranes, dentition intact, no oropharyngeal lesions, neck supple, trachea midline, no LAD, no thyromegaly, no JVD, tracheostomy in place Heart: +S1/S2, regular, 3/6 CATHY across precordium Lungs: coarse breath sounds bilaterally Abd: +BS, soft, NT/ND, no masses/organomegaly/ascites, PEG tube in place, nontender, no erythema/drainage Ext: warm, 2+ pulses in UE/LE bilaterally, no clubbing/cyanosis or edema Neuro: nonverbal, does not follow commands Results & Data Results & Data ([facility]) Vital Signs (Past 12 Hours) Vital Signs Temp Pulse Pulse Resp BP BP Pulse Ox 05/20/20 00:34 37.1 C 101 H 22 152/105 H 100 05/20/20 00:05 98 H 40 H 154/101 H 99 05/19/20 23:19 99 H 40 H 127/106 H 05/19/20 22:30 101 H 36 H 161/113 H 100 05/19/20 22:25 101 H 28 H 99 05/19/20 22:00 100 H 40 H 151/112 H 100 05/19/20 21:45 99 H 40 H 158/114 H 6 L 05/19/20 21:01 101 H 22 132/91 98 05/19/20 20:31 101 H 32 H 147/97 H 98 05/19/20 19:30 101 H 40 H 133/91 100 05/19/20 19:27 103 H 44 H 139/91 100 Laboratory Results Lab Results 05/19/20 05/19/20 05/19/20 Range/Units 19:58 19:58 19:58 WBC 9.48 (4.8-10.8) K/uL RBC 4.46 L (4.7-6.1) M/uL Hgb 12.6 L (14.0-18.0) g/dL Hct 41.7 L (42-52) % MCV 93.5 (80-100) fL MCH 28.3 (25-34) pg MCHC 30.2 L (32-36) g/dL RDW Std Deviation 54.7 H (36.4-46.3) fL RDW Coeff of Kasey 16.1 H (11.5-14.5) % Plt Count 256 (130-400) K/uL MPV 9.7 (7.4-10.4) fL Immature Gran % (Auto) 4.7 % Neut % (Auto) 72.0 % Lymph % (Auto) 15.3 % [place] % (Auto) 7.2 % Eos % (Auto) 0.5 % Baso % (Auto) 0.3 % Neut # (Auto) 6.82 H (1.4-6.5) K/uL Lymph # (Auto) 1.45 (1.2-3.4) K/uL [place] # (Auto) 0.68 H (0.11-0.59) K/uL Eos # (Auto) 0.05 (0-0.5) K/uL Baso # (Auto) 0.03 (0-0.2) K/uL Immature Gran # (Auto) 0.45 H (0.00-0.02) K/uL Absolute Nucleated RBC 0.10 H (0-0) K/uL Nucleated RBC % (auto) 1.0 % ESR 36 H (0-14) mm/hr PT 11.4 (9.0-12.0) Seconds INR 1.1 (0.9-1.1) APTT 25.7 (21.0-31.0) Seconds PTT Ratio 0.9 D-Dimer 11210 H* (0-500) ug/L FEU ABG pH (7.35-7.45) ABG pCO2 (35-46) mmHg ABG pO2 (80-95) mmHg ABG HCO3 (19-24) mmol/L ABG O2 Saturation (90-95) % ABG Base Excess (-9-1.8) mEq/L Yves Test (Pos) Barometric Pressure mm/Hg Oxygen Given Sodium (136-145) mmol/L Potassium (3.5-5.1) mmol/L Chloride (98-107) mmol/L Carbon Dioxide (21-32) mmol/L Anion Gap (3-11) BUN (7-18) mg/dl Creatinine (0.6-1.4) mg/dl Est Cr Clr Drug Dosing Est GFR ( Amer) Est GFR (Non-Af Amer) BUN/Creatinine Ratio (10-20) Glucose (70-99) mg/dl Lactate (0.4-2.0) mmol/L Calcium (8.5-10.1) mg/dl Phosphorus (2.5-4.9) mg/dl Magnesium (1.8-2.4) mg/dl Ferritin (8-388) ng/ml Total Bilirubin (0.2-1) mg/dl AST (15-37) U/L ALT (12-78) U/L Alkaline Phosphatase (45-117) U/L Troponin I (0-0.045) ng/ml C-Reactive Protein (0-0.29) mg/dl NT-Pro-B Natriuret Pep (0-900) pg/ml Total Protein (6.4-8.2) gm/dl Albumin (3.4-5.0) gm/dl Globulin (2.5-4.0) gm/dl Albumin/Globulin Ratio (0.9-2) Procalcitonin (0-0.5) ng/ml Specimen Hemolysis Urine Color Urine Appearance (Clear) Urine pH (4.5-7.5) Ur Specific [place] (1.000-1.030) Urine Protein (Negative) Urine Glucose (UA) (Negative) Urine Ketones (Negative) Urine Blood (Negative) Urine Nitrite (Negative) Urine Bilirubin (Negative) Urine Urobilinogen (Negative) Ur Leukocyte Esterase (Negative) Urine RBC (0-4) /hpf Urine WBC (0-5) /hpf Ur Epithelial Cells (0-5) /lpf Other Crystals (None Prsent) Urine Bacteria (Negative) COVID-19 Eval Order SARS-CoV-2, RNA, NAAT (NEGATIVE) Blood Type Antibody Screen 05/19/20 05/19/20 05/19/20 Range/Units 19:58 19:58 19:58 WBC (4.8-10.8) K/uL RBC (4.7-6.1) M/uL Hgb (14.0-18.0) g/dL Hct (42-52) % MCV (80-100) fL MCH (25-34) pg MCHC (32-36) g/dL RDW Std Deviation (36.4-46.3) fL RDW Coeff of K[place] (11.5-14.5) % Plt Count (130-400) K/uL MPV (7.4-10.4) fL Immature Gran % (Auto) % Neut % (Auto) % Lymph % (Auto) % [place] % (Auto) % Eos % (Auto) % Baso % (Auto) % Neut # (Auto) (1.4-6.5) K/uL Lymph # (Auto) (1.2-3.4) K/uL [place] # (Auto) (0.11-0.59) K/uL Eos # (Auto) (0-0.5) K/uL Baso # (Auto) (0-0.2) K/uL Immature Gran # (Auto) (0.00-0.02) K/uL Absolute Nucleated RBC (0-0) K/uL Nucleated RBC % (auto) % ESR (0-14) mm/hr PT (9.0-12.0) Seconds INR (0.9-1.1) APTT (21.0-31.0) Seconds PTT Ratio D-Dimer (0-500) ug/L FEU ABG pH (7.35-7.45) ABG pCO2 (35-46) mmHg ABG pO2 (80-95) mmHg ABG HCO3 (19-24) mmol/L ABG O2 Saturation (90-95) % ABG Base Excess (-9-1.8) mEq/L Yves Test (Pos) Barometric Pressure mm/Hg Oxygen Given Sodium 139 (136-145) mmol/L Potassium 4.2 (3.5-5.1) mmol/L Chloride 102 (98-107) mmol/L Carbon Dioxide 32 (21-32) mmol/L Anion Gap 5.0 (3-11) BUN 33 H (7-18) mg/dl Creatinine 0.83 (0.6-1.4) mg/dl Est Cr Clr Drug Dosing Not Reportable Est GFR ( Amer) 102.6 Est GFR (Non-Af Amer) 88.5 BUN/Creatinine Ratio 40.1 H (10-20) Glucose 188 H (70-99) mg/dl Lactate 4.3 H* (0.4-2.0) mmol/L Calcium 8.8 (8.5-10.1) mg/dl Phosphorus 2.8 (2.5-4.9) mg/dl Magnesium 2.2 (1.8-2.4) mg/dl Ferritin 557.5 H (8-388) ng/ml Total Bilirubin 0.2 (0.2-1) mg/dl AST 44 H (15-37) U/L ALT 35 (12-78) U/L Alkaline Phosphatase 91 (45-117) U/L Troponin I 0.025 (0-0.045) ng/ml C-Reactive Protein 10.10 H (0-0.29) mg/dl NT-Pro-B Natriuret Pep 1495 H (0-900) pg/ml Total Protein 6.6 (6.4-8.2) gm/dl Albumin 1.6 L (3.4-5.0) gm/dl Globulin 5.0 H (2.5-4.0) gm/dl Albumin/Globulin Ratio 0.3 L (0.9-2) Procalcitonin 0.22 (0-0.5) ng/ml Specimen Hemolysis Urine Color Urine Appearance (Clear) Urine pH (4.5-7.5) Ur Specific [place] (1.000-1.030) Urine Protein (Negative) Urine Glucose (UA) (Negative) Urine Ketones (Negative) Urine Blood (Negative) Urine Nitrite (Negative) Urine Bilirubin (Negative) Urine Urobilinogen (Negative) Ur Leukocyte Esterase (Negative) Urine RBC (0-4) /hpf Urine WBC (0-5) /hpf Ur Epithelial Cells (0-5) /lpf Other Crystals (None Prsent) Urine Bacteria (Negative) COVID-19 Eval Order SARS-CoV-2, RNA, NAAT (NEGATIVE) Blood Type Antibody Screen 05/19/20 05/19/20 05/19/20 Range/Units 22:15 22:15 22:20 WBC (4.8-10.8) K/uL RBC (4.7-6.1) M/uL Hgb (14.0-18.0) g/dL Hct (42-52) % MCV (80-100) fL MCH (25-34) pg MCHC (32-36) g/dL RDW Std Deviation (36.4-46.3) fL RDW Coeff of [place]ase[place] (11.5-14.5) % Plt Count (130-400) K/uL MPV (7.4-10.4) fL Immature Gran % (Auto) % Neut % (Auto) % Lymph % (Auto) % [place] % (Auto) % Eos % (Auto) % Baso % (Auto) % Neut # (Auto) (1.4-6.5) K/uL Lymph # (Auto) (1.2-3.4) K/uL [place] # (Auto) (0.11-0.59) K/uL Eos # (Auto) (0-0.5) K/uL Baso # (Auto) (0-0.2) K/uL Immature Gran # (Auto) (0.00-0.02) K/uL Absolute Nucleated RBC (0-0) K/uL Nucleated RBC % (auto) % ESR (0-14) mm/hr PT (9.0-12.0) Seconds INR (0.9-1.1) APTT (21.0-31.0) Seconds PTT Ratio D-Dimer (0-500) ug/L FEU ABG pH (7.35-7.45) ABG pCO2 (35-46) mmHg ABG pO2 (80-95) mmHg ABG HCO3 (19-24) mmol/L ABG O2 Saturation (90-95) % ABG Base Excess (-9-1.8) mEq/L Yves Test (Pos) Barometric Pressure mm/Hg Oxygen Given Sodium (136-145) mmol/L Potassium (3.5-5.1) mmol/L Chloride (98-107) mmol/L Carbon Dioxide (21-32) mmol/L Anion Gap (3-11) BUN (7-18) mg/dl Creatinine (0.6-1.4) mg/dl Est Cr Clr Drug Dosing Est GFR ( Amer) Est GFR (Non-Af Amer) BUN/Creatinine Ratio (10-20) Glucose (70-99) mg/dl Lactate (0.4-2.0) mmol/L Calcium (8.5-10.1) mg/dl Phosphorus (2.5-4.9) mg/dl Magnesium (1.8-2.4) mg/dl Ferritin (8-388) ng/ml Total Bilirubin (0.2-1) mg/dl AST (15-37) U/L ALT (12-78) U/L Alkaline Phosphatase (45-117) U/L Troponin I (0-0.045) ng/ml C-Reactive Protein (0-0.29) mg/dl NT-Pro-B Natriuret Pep (0-900) pg/ml Total Protein (6.4-8.2) gm/dl Albumin (3.4-5.0) gm/dl Globulin (2.5-4.0) gm/dl Albumin/Globulin Ratio (0.9-2) Procalcitonin (0-0.5) ng/ml Specimen Hemolysis Urine Color Urine Appearance (Clear) Urine pH (4.5-7.5) Ur Specific [place] (1.000-1.030) Urine Protein (Negative) Urine Glucose (UA) (Negative) Urine Ketones (Negative) Urine Blood (Negative) Urine Nitrite (Negative) Urine Bilirubin (Negative) Urine Urobilinogen (Negative) Ur Leukocyte Esterase (Negative) Urine RBC (0-4) /hpf Urine WBC (0-5) /hpf Ur Epithelial Cells (0-5) /lpf Other Crystals (None Prsent) Urine Bacteria (Negative) COVID-19 Eval Order Covid19 [facility] SARS-CoV-2, RNA, NAAT POSITIVE A* (NEGATIVE) Blood Type O Positive Antibody Screen NEGATIVE 05/19/20 05/19/20 05/19/20 Range/Units 22:20 22:51 23:00 WBC (4.8-10.8) K/uL RBC (4.7-6.1) M/uL Hgb (14.0-18.0) g/dL Hct (42-52) % MCV (80-100) fL MCH (25-34) pg MCHC (32-36) g/dL RDW Std Deviation (36.4-46.3) fL RDW Coeff of Kase[place] (11.5-14.5) % Plt Count (130-400) K/uL MPV (7.4-10.4) fL Immature Gran % (Auto) % Neut % (Auto) % Lymph % (Auto) % [place] % (Auto) % Eos % (Auto) % Baso % (Auto) % Neut # (Auto) (1.4-6.5) K/uL Lymph # (Auto) (1.2-3.4) K/uL [place] # (Auto) (0.11-0.59) K/uL Eos # (Auto) (0-0.5) K/uL Baso # (Auto) (0-0.2) K/uL Immature Gran # (Auto) (0.00-0.02) K/uL Absolute Nucleated RBC (0-0) K/uL Nucleated RBC % (auto) % ESR (0-14) mm/hr PT (9.0-12.0) Seconds INR (0.9-1.1) APTT (21.0-31.0) Seconds PTT Ratio D-Dimer (0-500) ug/L FEU ABG pH 7.51 H* (7.35-7.45) ABG pCO2 35 (35-46) mmHg ABG pO2 57 L (80-95) mmHg ABG HCO3 27 H (19-24) mmol/L ABG O2 Saturation 89.6 L (90-95) % ABG Base Excess 4.3 H (-9-1.8) mEq/L Yves Test Pos (Pos) Barometric Pressure 741.6 mm/Hg Oxygen Given 6L Sodium (136-145) mmol/L Potassium (3.5-5.1) mmol/L Chloride (98-107) mmol/L Carbon Dioxide (21-32) mmol/L Anion Gap (3-11) BUN (7-18) mg/dl Creatinine (0.6-1.4) mg/dl Est Cr Clr Drug Dosing Est GFR ( Amer) Est GFR (Non-Af Amer) BUN/Creatinine Ratio (10-20) Glucose (70-99) mg/dl Lactate 2.1 H* (0.4-2.0) mmol/L Calcium (8.5-10.1) mg/dl Phosphorus (2.5-4.9) mg/dl Magnesium (1.8-2.4) mg/dl Ferritin (8-388) ng/ml Total Bilirubin (0.2-1) mg/dl AST (15-37) U/L ALT (12-78) U/L Alkaline Phosphatase (45-117) U/L Troponin I (0-0.045) ng/ml C-Reactive Protein (0-0.29) mg/dl NT-Pro-B Natriuret Pep (0-900) pg/ml Total Protein (6.4-8.2) gm/dl Albumin (3.4-5.0) gm/dl Globulin (2.5-4.0) gm/dl Albumin/Globulin Ratio (0.9-2) Procalcitonin (0-0.5) ng/ml Specimen Hemolysis Urine Color Yellow Urine Appearance Clear (Clear) Urine pH 8.0 H (4.5-7.5) Ur Specific [place] 1.015 (1.000-1.030) Urine Protein Negative (Negative) Urine Glucose (UA) Negative (Negative) Urine Ketones Negative (Negative) Urine Blood Trace H (Negative) Urine Nitrite Negative (Negative) Urine Bilirubin Negative (Negative) Urine Urobilinogen Negative (Negative) Ur Leukocyte Esterase Negative (Negative) Urine RBC 0-4 (0-4) /hpf Urine WBC 0-5 (0-5) /hpf Ur Epithelial Cells 0-5 (0-5) /lpf Other Crystals Hippuric Acid A (None Prsent) Urine Bacteria Negative (Negative) COVID-19 Eval Order SARS-CoV-2, RNA, NAAT (NEGATIVE) Blood Type Antibody Screen Diagnostic Findings XR chest 1V portable HISTORY: Dyspnea COMPARISON: Chest 01/24/2020. FINDINGS: Tracheostomy tube appears in good position. There are low lung volumes. No pneumothorax. No pleural effusions. The heart remains stable in size. Diffuse interstitial thickening and bilateral hazy airspace opacities have slightly improved. IMPRESSION: Diffuse interstitial thickening and bilateral hazy airspace opacities. This has slightly improved in the interval. This could represent pulmonary edema or a pneumonia. ACT 112: Negative or not required by law. Electronically signed by: Heath Pham M.D. 05/19/2020 8:47 PM Dictated: [id number]: 05/19/202044 CTA Chest - Per STAT-rad: No central or large pulmonary embolus identified. Evaluation fo the pulmonary arterial branches is limited by significant motion artifact. No aortic aneurysm or dissection. Mild ectasia of the descending thoracic aorta. Extensive patchy ground-glass opacities and densities throughout the lungs, compatible with infectious/inflammatory process such as Covid-19 infection. Trace left pelural effusion. Nonspecific prominent mediastinal and hilar lymph nodes. Tracheostomy in place. Mild bilateral gynecomastia. Evaluation fo the stomach is limited by underdistention. Code Status & VTE Plan VTE Prophylaxis Plan VTE Prophylaxis will be ordered: Yes PG Care Time/CCT Total # of Minutes Spent Total Time Spent with Patient: Total time spent is greater than 50% in coordination of care (as documented) at patient's floor/unit and/or counseling patient: Coding Level of Care Code 85639 Initial Inpt Care Lvl 3 Diagnoses Pneumonia due to COVID-19 virus U07.1; J12.89 Tachypnea R06.82 Schizophrenia F20.9 Schizophrenia type: unspecified Aortic stenosis I35.0 Cardiac valve disease etiology: nonrheumatic H/O: stroke with residual effects I69.30 Dementia F03.91 Dementia type: unspecified type Dementia behavioral disturbance: with behavioral disturbance Seizure disorder G40.909 Diabetes E11.9; Z79.4 Diabetes mellitus type: type 2 Diabetes mellitus nursing home insulin use: with long term care phlebotomist use Diabetes mellitus complication status: without complication Coronary artery disease I25.10 Coronary Disease-Associated Artery/Lesion type: [place] artery [place] vs. transplanted heart: [place] heart Associated angina: without angina GERD (gastroesophageal reflux disease) K21.9 Esophagitis presence: esophagitis presence not specified Anemia D64.9 Anemia type: unspecified type (1) Schizophrenia Schizophrenia type: unspecified Qualified Code(s): F20.9 - Schizophrenia, unspecified (2) Aortic stenosis Cardiac valve disease etiology: nonrheumatic Qualified Code(s): I35.0 - Nonrheumatic aortic (valve) stenosis (3) Dementia Dementia type: unspecified type Dementia behavioral disturbance: with behavioral disturbance Qualified Code(s): F03.91 - Unspecified dementia with behavioral disturbance (4) Diabetes Diabetes mellitus type: type 2 Diabetes mellitus nursing home insulin use: with long term care phlebotomist use Diabetes mellitus complication status: without complication Qualified Code(s): E11.9 - Type 2 diabetes mellitus without complications; Z79.4 - long term care phlebotomist (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 (5) Coronary artery disease Coronary Disease-Associated Artery/Lesion type: [place] artery [place] vs. transplanted heart: [place] heart Associated angina: without angina Qualified Code(s): I25.10 - Atherosclerotic heart disease of [place] coronary artery without angina pectoris (6) GERD (gastroesophageal reflux disease) Esophagitis presence: esophagitis presence not specified Qualified Code(s): K21.9 - Gastro-esophageal reflux disease without esophagitis (7) Anemia Anemia type: unspecified type Qualified Code(s): D64.9 - Anemia, unspecified
[2020-05-20] MEDS: CHECK fentaNYL PATCH PLACEMENT SCH ×3 (01:39→16:00)
[2020-05-20] MEDS ORDERED: REMDESIVIR 200 MG in SODIUM CHLORIDE 0.9% 210 ML IV ONE (02:00)
[2020-05-20] MEDS: SODIUM CHLORIDE 0.9% 10ML FLUSH IV SCH (02:07)
[2020-05-20] MEDS: INSULIN ASPART 100 UNITS/ML 3 ML PEN SC SCH ×4 (02:19→17:56)
--- NOTE | 2020-05-20 07:37 | CT Scan Report ---
CT ANGIOGRAPHY OF THE CHEST, PULMONARY EMBOLUS PROTOCOL CLINICAL HISTORY: PE, COVID + by report [facility] COMPARISON STUDY: Chest radiograph May 19, 2020 and January 24, 2020. TECHNIQUE: Following IV administration of 119 mL of Optiray-320, helical axial images of the chest we re obtained utilizing the pulmonary embolus protocol. Maximal intensity projections and sagittal and coronal reformats were viewed on an independent 3D workstation. IV contrast was administered withou t complication. Automated exposure control was utilized for the study. A dose lowering technique wa s utilized adhering to the principles of ALARA. CT DOSE: 512.68 mGycm FINDINGS: No central or lobar pulmonary embolus is identified. Evaluation of the segmental and subse gmental pulmonary arteries is markedly compromised by respiratory motion artifact. There is moderate cardiomegaly. No thoracic aortic dissection is noted. Descending thoracic aorta is ectatic, measuring 3.6 cm per there multiple mildly enlarged mediastinal lymph nodes which may be reactive. Extensive a irspace opacities noted throughout the lungs. This is nearly confluent within the upper lobes. No pne umothorax or pleural effusion is present. IMPRESSION: 1. No pulmonary emboli identified although exam significantly compromised by respiratory motion artif act. 2. Extensive airspace opacities within the lungs consistent with an infectious process such as viral pneumonia. 3. Cardiomegaly. Ectatic descending thoracic aorta. ACT 112: Negative or not required by law. Electronically signed by: Tee Eddy M.D. 05/20/2020 7:36 AM
[2020-05-20] MEDS ORDERED: INFLUENZA ADMINISTRATION CHARGE ONE (08:00)
[2020-05-20] MEDS ORDERED: PNEUMOCOCCAL ADMINISTRATION CHARGE ONE (08:00)
[2020-05-20] MEDS ORDERED: INFLUENZA VIRUS QUAD VACCINE 0.5 ML SYR IM ONE (08:00)
[2020-05-20] MEDS ORDERED: PNEUMOCOCCAL POLYSACCHARIDES 25 MCG/0.5 ML VIAL/SYR IM ONE (08:00)
[2020-05-20] MEDS ORDERED: DEXAMETHASONE SOD INJ 10 MG/ML VIAL IV SCH (09:00)
[2020-05-20] MEDS ORDERED: LANSOPRAZOLE 30 MG SOLTAB PEG SCH (09:00)
[2020-05-20] MEDS: INSULIN GLARGINE SOLOSTAR 100 UNITS/ML 3 ML PEN SQ SCH (09:15)
[2020-05-20] MEDS: FAMOTIDINE 20 MG TAB JT SCH ×2 (09:20→21:56)
[2020-05-20] MEDS: DEXAMETHASONE SOD PHOSPHATE 6 MG in SYRINGE 0 ML IV SCH (09:20)
[2020-05-20] MEDS: HALOPERIDOL 2 MG/1 ML UDP GT SCH ×2 (09:21→21:56)
[2020-05-20] MEDS: ZINC SULFATE 220 MG CAPSULE GT SCH ×2 (09:21→21:56)
[2020-05-20] MEDS: ASCORBIC ACID 500 MG TAB GT SCH (09:21)
[2020-05-20] MEDS: VALPROIC ACID SOLN 500 MG/10 ML UDC PEG SCH ×2 (09:21→21:56)
[2020-05-20] MEDS: levETIRAcetam ORAL SOLN 100MG/ML PEG SCH ×2 (09:21→21:56)
[2020-05-20] MEDS: ASPIRIN 81 MG CHEW GT SCH (09:21)
[2020-05-20] MEDS: ENOXAPARIN INJ 40 MG/0.4 ML SYR SQ SCH ×2 (09:21→21:56)
[2020-05-20] MEDS: CHOLECALCIFEROL 1,000 UNITS 25 MCG TAB PEG SCH (09:21)
--- NOTE | 2020-05-20 09:57 | Electrocardiogram Report ---
Test Reason : Blood Pressure : / mmHG Vent. Rate : 104 BPM Atrial Rate : 104 BPM P-R Int : 140 ms QRS Dur : 082 ms QT Int : 352 ms P-R-T Axes : 019 -52 082 degrees QTc Int : 462 ms Sinus tachycardia with frequent Premature ventricular complexes Left axis deviation Minimal voltage criteria for LVH, may be normal variant Inferior infarct (cited on or before 26-NOV-2018) Abnormal ECG When compared with ECG of 04-JAN-2020 16:50, Premature ventricular complexes are now Present Confirmed by Jakob Byrd ([id number]) on 05/20/2020 9:56:36 AM Referred By: Wen Campbellramona Confirmed By:Jakob Byrd
--- NOTE | 2020-05-20 15:01 | Pulmonary Consultation ---
Date of Consultation May 20, 2020 Assessment & Plan (1) Pneumonia due to COVID-19 virus: CT chest 05/19/2020: Groundglass opacities appreciated especially in bilateral upper lobes. Air bronchograms are also appreciated in the left upper lobe, motion degraded study. Mild enlargement of the subcarinal lymph node --Acute hypoxic respiratory failure Likely secondary to multilobar pneumonia COVID-19 positive 05/19/2020 ESR 36, CRP 15.6, Ferritin 557 D-Dimer >84816 BNP 1495, fluid overload may also be playing a role PCT: 0.22 Continue with remdesivir for total of 5 days Dexamethasone 6 mg for total of 10 days Procalcitonin is only 0.22, no need for any antibiotics Patient D-dimer is significantly elevated. Agree with 40 mg twice daily of Lovenox. --TDRF Patient is size 6 trach Continue with O2 supplementation to keep oxygen saturation between 88-92% Patient was saturating 100% on 6 L trach collar. Case was discussed with RT and advised him to go down on oxygen as needed. Plan: Patient has CTA chest which was negative for PE. In the records it seems patient was diagnosed with questionable clot. If Dopplers of the lower extremities were not done at the facility where he was at. Would recommend doing Doppler bilateral lower extremity rule out DVT given the very high D-dimer. If positive then therapeutic Lovenox twice daily. If negative would continue with 40 mg twice daily Pulmonary will follow peripherally. Please call with any questions. Please note the above document was generated using voice recognition software. It may contain grammatical, syntax or spelling errors.Any formal questions or concerns about the content, text or information contained within the body of t his dictation should be directly addressed to the provider for clarification. (2) Tracheostomy dependent: (3) Acute respiratory failure with hypoxia: History of Present Illness Attending Physician: Vinny Ashley History of Present Illness 69-year-old past medical history of dementia, diabetes, seasonal affective disorder was brought from heart side because of tachypnea. Patient was recently in the hospital in December 2019 when he was in the ICU because of pneumonia unable to be weaned and had trach placed at that time. He had E. coli bacteremia. Is on baseline 6 L trach collar. Patient was diagnosed with COVID-19 a few days ago. History obtained from previous records and ER chart. Patient was seen through the glass window the room is in. He was sleeping comfortably saturating 100% on 6 L trach collar. Not in any acute distress. He has been afebrile since coming to the hospital. Allergies Allergy/AdvReac Type Severity Reaction Status Date / Time No Known Allergies Allergy Unverified 05/19/20 22:59 Home Medications Medication Instructions Recorded Confirmed Type aspirin 81 mg FEEDING TUBE DAILY #90 tab 01/25/20 05/19/20 Rx fentanyl 12 mcg TRANSDERMAL Q72H #10 patch 01/25/20 05/19/20 Rx haloperidol 2 mg FEEDING TUBE BID #60 tab 01/25/20 05/19/20 Rx polyethylene glycol 3350 [Miralax] 17 g PEG DAILY #30 ea 01/25/20 05/19/20 Rx Azithromycin Packet 250 mg G-TUBE .DAILY FOR 4 DAYS 05/19/20 05/19/20 History Ferrous Sulfate Liquid 300 mg PEG BID 05/19/20 05/19/20 History Guaifenesin Belinda 200mg/10ml 10 ml G-TUBE BID 05/19/20 05/19/20 History Keppra Solution 100mg/Ml 750 mg G-TUBE BID 05/19/20 05/19/20 History Liquid Protein Supp 30 ml G-TUBE BID 05/19/20 05/19/20 History Pantoprazole 2mg/Ml 40 mg PEG QAM 05/19/20 05/19/20 History Valproic Acid Belinda 250mg/5ml 500 mg PO BID 05/19/20 05/19/20 History acetaminophen [Tylenol] 650 mg FEEDING TUBE Q6 PRN 05/19/20 05/19/20 History ascorbic acid (vitamin C) [Vitamin 500 mg FEEDING TUBE DAILY 05/19/20 05/19/20 History C] cholecalciferol (vitamin D3) 125 mcg FEEDING TUBE DAILY 05/19/20 05/19/20 History [Vitamin D3] enoxaparin 40 mg SUBCUT DAILY 05/19/20 05/19/20 History hydrocortisone [Anusol-HC] 1 ea AK Q12 PRN 05/19/20 05/19/20 History insulin glargine [Lantus Solostar 16 unit SUBCUT QAM 05/19/20 05/19/20 History U-100 Insulin] insulin lispro 1 sliding scale dose SUBCUT 05/19/20 05/19/20 History USEASDIRECTD magnesium hydroxide [Milk of 30 ml FEEDING TUBE UD PRN 05/19/20 05/19/20 History Magnesia] nut.tx.gluc intol,lf,soy-fiber 1 ea FEEDING TUBE UD 05/19/20 05/19/20 History [Glucerna 1.2 Rohit] tramadol 50 mg FEEDING TUBE Q4 PRN 05/19/20 05/19/20 History zinc 50 mg FEEDING TUBE BID 05/19/20 05/19/20 History Patient History Medical History (Updated 05/20/20 @ 02:05 by Lavinia Menard DO) Alzheimer disease Chronic gout Chronic prescription opiate use Dementia Diabetes Gastrointestinal hemorrhage GERD (gastroesophageal reflux disease) Goals of care, counseling/discussion Hypertension Muscle weakness Peripheral vascular disease Schizoaffective disorder, chronic condition Seizure disorder Stroke Urinary tract infection Surgical History (Updated 05/20/20 @ 01:20 by Lavinia Menard DO) Status post insertion of percutaneous endoscopic gastrostomy (PEG) tube Tracheostomy in place Family History (Updated 05/20/20 @ 01:20 by Lavinia Menard DO) Other No significant family history Social History Smoking Status: Unknown if ever smoked Preferred Language: Tristanian Communication Ability: Impaired Communication Ability Comment: Unobtainable/ Patient unable to answer. Motor Transport Inspector Required: No marital status: Unknown Current Living Situation: [facility] Feels Safe at Home: Yes Assistive Devices: Oxygen - Continuous Review of Systems Review of Systems: Other Physical Exam Physical Exam: Patient not examined due to coronavirus restrictions and attempts to minimize exposure to staff and consider PPE. Please refer to the hospitalist exam for complete details. Results & Data Results & Data ([facility]) Vital Signs (Past 12 Hours) Vital Signs Temp Pulse Pulse Resp BP Pulse Ox 05/20/20 12:12 36.7 C 97 H 22 128/84 99 05/20/20 11:40 100 H 05/20/20 11:38 97 H 20 100 05/20/20 09:10 36.6 C 96 H 26 H 141/96 H 100 05/20/20 04:20 36.6 C 96 H 20 110/79 96 05/19/20 19:58 05/19/20 19:58 PG Care Time/CCT Total # of Minutes Spent Total Time Spent with Patient: Total time spent is greater than 50% in coordination of care (as documented) at patient's floor/unit and/or counseling patient: Coding Level of Care Code 82110 Initial Inpt Care Lvl 2 Diagnoses Pneumonia due to COVID-19 virus U07.1; J12.89 Tracheostomy dependent Z93.0 Acute respiratory failure with hypoxia J96.01
[2020-05-20] MEDS: PEPTAMEN 1.5 CAL 1,000 ML BAG PEG SCH (17:12)
[2020-05-20] MEDS: fentaNYL 12 MCG/HR TDSY TD SCH (17:15)
[2020-05-20] MEDS ORDERED: FUROSEMIDE 20 MG in SYRINGE 0 ML IV SCH (21:00)
--- NOTE | 2020-05-20 21:01 | Hospitalist Progress Note ---
Date of Service May 20, 2020 Assessment & Plan (1) Pneumonia due to COVID-19 virus: extensive on CTA chest. 10-day course of IV decadron 6mg daily. 5-day course of IV remdesivir. pt's brother gave consent for plasma - to be delivered and given tonight. follow plasma with 20mg IV Lasix. appreciate pulmonary consultation. agree w/ dopplers of legs - I'll order such. add robittusin 200mg q6h to help w/ secretions. cont trach care, etc. marked elevation d-dimer, extensive infiltrates on CTA, comorbidities, etc all portains poor prognosis. I voiced this to Octaviano, his brother, by phone tonight. (2) Acute and chronic respiratory failure with hypoxia: acute component 2nd to COVID-19 pneumonia. see above. (3) Elevated d-dimer: CTA chest w/o PEs. Dopplers legs ordered to r/o DVT. in meantime - lovenox 40mg BID for DVT prophylaxis. if dopplers negative then dimer is 2nd to inflammatory cascade from COVID-19. this is poor prognostic indicator. (4) Schizophrenia: With behavioral disturbances in the past. Patient was evaluated by Psychiatry at last visit -Continue Haldol 2mg PEG BID (5) Aortic stenosis: Severe on last echo lasix 20mg IV following plasma tonight (6) H/O: stroke with residual effects: Noted Continue asa secondary prevention (7) Dementia: severe by history nonverbal (8) Seizure disorder: Chronic ?seizures vs myoclonus during my visit?? follow for now cont Valproic acid 500mg per PEG BID -- obtain level am cont Keppra 750mg per PEG BID (9) Diabetes: uncontrolled - 2nd steroids increase lantus adjust novolog correction (10) Coronary artery disease: No prior stents or CABG by history. Echo from 01/04/20 wtih normal EF, severe aortic stenosis Continue ASA 81mg po daily (11) GERD (gastroesophageal reflux disease): pepcid 20mg per PEG BID (12) Anemia: stable h/h today repeat cbc am (13) Tracheostomy dependent: placed during prior hospitalization following prolonged intubation/mech ventilation episode (14) Presence of externally removable percutaneous endoscopic gastrostomy (PEG) tube: spoke with nutrition - restarting tube feeds today appreciate their assistance (15) DVT prophylaxis: lovenox 40mg BID - higher dose due to high risk of VTE with COVID updated Octaviano extensively by phone Admission and Anticipated Discharge Date Admission Date: May 19, 2020 Subjective patient nonverbal only stares and blinks eyes when light is shined at his eyes during my bedside rounds, with his eyes open, he had what appeared to be significant myoclonus cannot rule out seizures staff report occasional desaturation episodes with need for suctioning now on 3 L O2 via trach collar tele overnight wnl updated brother, Octaviano, by phone to receive plasma tonight as per staff Review of Systems Review of Systems: Unobtainable due to reduced consciousness Physical Exam Constitutional: + ill appearing, + thin, + cachectic, + altered mental status and + frail appearing; + not well developed and + not well nourished Eyes: PERRL Neck: trach present Respiratory: + respiratory distress, + retractions, + cough and + tachypneic Auscultation: + diminished lung sounds and + crackles; no wheezes Cardiovascular: Rate/Rhythm: regular rate and regular rhythm Heart Sounds: normal S1, normal S2 and + murmur Vessels: posterior tibial pulses present and dorsalis pedis pulses present; no JVD Extremities: no edema Gastrointestinal (Abdomen): normal bowel sounds, soft, nontender, no hepatosplenomegaly PEG present; insertion site at skin c/d/i Musculoskeletal: atrophy arms/legs Neurologic: significant myoclonus noted of arms during the visit; atrophy of arms/legs; increased tone of arms Psychiatric: Orientation: + not alert and + not oriented x 3 Results & Data Results & Data ([facility]) Vital Signs (Past 12 Hours) Vital Signs Temp Pulse Pulse Resp BP Pulse Ox 05/20/20 17:03 36.4 C L 107 H 28 H 134/91 98 05/20/20 12:12 36.7 C 97 H 22 128/84 99 05/20/20 11:40 100 H 05/20/20 11:38 97 H 20 100 05/20/20 09:10 36.6 C 96 H 26 H 141/96 H 100 Laboratory Results Laboratory Results - last 24 hr 05/19/20 05/19/20 05/19/20 19:58 22:15 22:15 ABG pH ABG pCO2 ABG pO2 ABG HCO3 ABG O2 Saturation ABG Base Excess Yves Test Barometric Pressure Oxygen Given POC Glucose Lactate Phosphorus 2.8 NT-Pro-B Natriuret Pep 1495 H Urine Color Urine Appearance Urine pH Ur Specific [place] Urine Protein Urine Glucose (UA) Urine Ketones Urine Blood Urine Nitrite Urine Bilirubin Urine Urobilinogen Ur Leukocyte Esterase Urine RBC Urine WBC Ur Epithelial Cells Other Crystals Urine Bacteria Nasal Screen MRSA (PCR) COVID-19 Eval [facility] SARS-CoV-2, RNA, NAAT POSITIVE A* Blood Type Antibody Screen 05/19/20 05/19/20 05/19/20 22:20 22:20 22:51 ABG pH 7.51 H* ABG pCO2 35 ABG pO2 57 L ABG HCO3 27 H ABG O2 Saturation 89.6 L ABG Base Excess 4.3 H Yves Test Pos Barometric Pressure 741.6 Oxygen Given 6L POC Glucose Lactate 2.1 H* Phosphorus NT-Pro-B Natriuret Pep Urine Color Urine Appearance Urine pH Ur Specific [place] Urine Protein Urine Glucose (UA) Urine Ketones Urine Blood Urine Nitrite Urine Bilirubin Urine Urobilinogen Ur Leukocyte Esterase Urine RBC Urine WBC Ur Epithelial Cells Other Crystals Urine Bacteria Nasal Screen MRSA (PCR) COVID-19 Eval Order SARS-CoV-2, RNA, NAAT Blood Type O Positive Antibody Screen NEGATIVE 05/19/20 05/20/20 05/20/20 23:00 02:04 06:27 ABG pH ABG pCO2 ABG pO2 ABG HCO3 ABG O2 Saturation ABG Base Excess Yves Test Barometric Pressure Oxygen Given POC Glucose 149 H 184 H Lactate Phosphorus NT-Pro-B Natriuret Pep Urine Color Yellow Urine Appearance Clear Urine pH 8.0 H Ur Specific [place] 1.015 Urine Protein Negative Urine Glucose (UA) Negative Urine Ketones Negative Urine Blood Trace H Urine Nitrite Negative Urine Bilirubin Negative Urine Urobilinogen Negative Ur Leukocyte Esterase Negative Urine RBC 0-4 Urine WBC 0-5 Ur Epithelial Cells 0-5 Other Crystals Hippuric Acid A Urine Bacteria Negative Nasal Screen MRSA (PCR) COVID-19 Eval Order SARS-CoV-2, RNA, NAAT Blood Type Antibody Screen 05/20/20 05/20/20 05/20/20 12:10 17:54 Unknown ABG pH ABG pCO2 ABG pO2 ABG HCO3 ABG O2 Saturation ABG Base Excess Yves Test Barometric Pressure Oxygen Given POC Glucose 172 H 177 H Lactate Phosphorus NT-Pro-B Natriuret Pep Urine Color Urine Appearance Urine pH Ur Specific [place] Urine Protein Urine Glucose (UA) Urine Ketones Urine Blood Urine Nitrite Urine Bilirubin Urine Urobilinogen Ur Leukocyte Esterase Urine RBC Urine WBC Ur Epithelial Cells Other Crystals Urine Bacteria Nasal Screen MRSA (PCR) Negative COVID-19 Eval Order SARS-CoV-2, RNA, NAAT Blood Type Antibody Screen PG Care Time/CCT Total # of Minutes Spent Total Time Spent with Patient: Total time spent is greater than 50% in coordination of care (as documented) at patient's floor/unit and/or counseling patient: Coding Level of Care Code 97112 Subseq Hosp Care Lvl 3 Diagnoses Pneumonia due to COVID-19 virus U07.1; J12.89 Acute and chronic respiratory failure with hypoxia J96.21 Elevated d-dimer R79.89 Schizophrenia F20.9 Schizophrenia type: unspecified Aortic stenosis I35.0 Cardiac valve disease etiology: nonrheumatic H/O: stroke with residual effects I69.30 Dementia F03.91 Dementia behavioral disturbance: with behavioral disturbance Dementia type: unspecified type Seizure disorder G40.909 Diabetes E11.9; Z79.4 Diabetes mellitus complication status: without complication Diabetes mellitus termite helper insulin use: with termite helper use Diabetes mellitus type: type 2 Coronary artery disease I25.10 Associated angina: without angina Coronary Disease-Associated Artery/Lesion type: [place] artery [place] vs. transplanted heart: [place] heart GERD (gastroesophageal reflux disease) K21.9 Esophagitis presence: esophagitis presence not specified Anemia D64.9 Anemia type: unspecified type Tracheostomy dependent Z93.0 Presence of externally removable percutaneous endoscopic gastrostomy (PEG) tube Z93.1 DVT prophylaxis Z29.9 (1) Diabetes Diabetes mellitus complication status: without complication Diabetes mellitus senior living insulin use: with senior living use Diabetes mellitus type: type 2 Qualified Code(s): E11.9 - Type 2 diabetes mellitus without complications; Z79.4 - termite helper (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 (2) Coronary artery disease Associated angina: without angina Coronary Disease-Associated Artery/Lesion type: [place] artery [place] vs. transplanted heart: [place] heart Qualified Code(s): I25.10 - Atherosclerotic heart disease of [place] coronary artery without angina pectoris (3) Anemia Anemia type: unspecified type Qualified Code(s): D64.9 - Anemia, unspecified (4) Aortic stenosis Cardiac valve disease etiology: nonrheumatic Qualified Code(s): I35.0 - Nonrheumatic aortic (valve) stenosis (5) Dementia Dementia behavioral disturbance: with behavioral disturbance Dementia type: unspecified type Qualified Code(s): F03.91 - Unspecified dementia with behavioral disturbance (6) Schizophrenia Schizophrenia type: unspecified Qualified Code(s): F20.9 - Schizophrenia, unspecified (7) GERD (gastroesophageal reflux disease) Esophagitis presence: esophagitis presence not specified Qualified Code(s): K21.9 - Gastro-esophageal reflux disease without esophagitis
--- NOTE | 2020-05-20 21:09 | Ultrasound Report ---
ULTRASOUND BILATERAL LOWER EXTREMITY VENOUS CLINICAL HISTORY: Elevated d-dimer. Immobilized patient. Covid. COMPARISON STUDY: Bilateral lower extremity venous ultrasound dated 01/18/2020. TECHNIQUE: Real-time, grayscale, and color Doppler sonography of the deep veins of the right and left lower extremity was performed from the inguinal crease to the calf. Compression and augmentation wer e utilized. FINDINGS: Right lower extremity: There is no sonographic evidence of deep venous thrombosis identified in the r ight lower extremity. The common femoral, superficial femoral, and popliteal veins are patent and nor maureen compressible. The greater saphenous vein and the profunda femoris vein at the junction with the common femoral vein are clear. The visualized calf veins are patent. Left lower extremity: There is no sonographic evidence of deep venous thrombosis in the left lower ex tremity. Note that the popliteal vein, the posterior tibial veins, and the peroneal veins were not vi sualized due to inability to properly position the patient. The common femoral and superficial femora l veins are patent and normally compressible. The greater saphenous vein and the profunda femoris vei n at the junction with the common femoral vein are clear. The visualized calf veins are patent. IMPRESSION: There is no sonographic evidence of deep venous thrombosis identified in the right or lef t lower extremity. ACT 112: Negative or not required by law. Electronically signed by: Surinder Marroquin M.D. 05/20/2020 9:08 PM
[2020-05-20] MEDS: guaiFENesin SUGAR FREE 200 MG/10 ML UDC PEG SCH (21:56)
[2020-05-20] MEDS: INSULIN GLARGINE SOLOSTAR 100 UNITS/ML 3 ML PEN SC SCH (21:57)
[2020-05-21] MEDS: INSULIN ASPART 100 UNITS/ML 3 ML PEN SC SCH ×4 (01:24→16:15)
[2020-05-21] MEDS: CHECK fentaNYL PATCH PLACEMENT SCH ×3 (01:25→15:57)
[2020-05-21] MEDS: guaiFENesin SUGAR FREE 200 MG/10 ML UDC PEG SCH ×4 (01:26→18:33)
[2020-05-21] MEDS: REMDESIVIR 100mg: Days 2-5 IV SCH (01:26)
[2020-05-21] MEDS: SODIUM CHLORIDE 0.9% 10ML FLUSH IV SCH (01:27)
[2020-05-21 07:05] LABS: Hematocrit (blood only) 44.4 % (42-52); Mean Corpuscular Hemoglobin 28.7 pg (25-34); Mean Corpuscular Hgb Conc 31.5 g/dL (32-36); Mean Corpuscular Volume 91.2 fL (80-100); Mean Platelet Volume 9.4 fL (7.4-10.4); Platelet Count 264 K/uL (130-400); RDW Coefficient of Variation 15.8 % (11.5-14.5); RDW Standard Deviation 52.1 fL (36.4-46.3); Red Blood Count 4.87 M/uL (4.7-6.1); White Blood Count 11.51 K/uL (4.8-10.8)
[2020-05-21] MEDS: DEXAMETHASONE SOD PHOSPHATE 6 MG in SYRINGE 0 ML IV SCH (07:28)
[2020-05-21] MEDS: ASPIRIN 81 MG CHEW GT SCH (07:29)
[2020-05-21] MEDS: CHOLECALCIFEROL 1,000 UNITS 25 MCG TAB PEG SCH (07:29)
[2020-05-21] MEDS: ASCORBIC ACID 500 MG TAB GT SCH (07:29)
[2020-05-21] MEDS: ZINC SULFATE 220 MG CAPSULE GT SCH ×2 (07:30→21:36)
[2020-05-21] MEDS: HALOPERIDOL 2 MG/1 ML UDP GT SCH ×2 (07:31→21:35)
[2020-05-21] MEDS: VALPROIC ACID SOLN 500 MG/10 ML UDC PEG SCH ×2 (07:31→21:37)
[2020-05-21] MEDS: levETIRAcetam ORAL SOLN 100MG/ML PEG SCH ×2 (07:31→21:35)
[2020-05-21] MEDS: FAMOTIDINE 20 MG TAB JT SCH ×2 (07:31→21:36)
[2020-05-21] MEDS: ENOXAPARIN INJ 40 MG/0.4 ML SYR SQ SCH ×2 (07:32→21:36)
[2020-05-21 07:45] LABS: BUN Creatinine Ratio 40.4 (10-20); Calcium 9.1 mg/dl (8.5-10.1); Creatinine Clr Calc Pharmacy 74.7 ml/min; Est GFR (African American) 103.6; Est GFR (Non-African American) 89.4; Magnesium 2.3 mg/dl (1.8-2.4); Potassium 3.4 mmol/L (3.5-5.1)
[2020-05-21] MEDS: INSULIN GLARGINE SOLOSTAR 100 UNITS/ML 3 ML PEN SQ SCH (09:15)
[2020-05-21] MEDS: POTASSIUM CHLORIDE 20 MEQ/15 ML UDC PEG SCH (10:37)
--- NOTE | 2020-05-21 14:08 | Pulmonology Progress Note ---
Date of Service May 21, 2020 Assessment & Plan (1) Pneumonia due to COVID-19 virus: CT chest 05/19/2020: Groundglass opacities appreciated especially in bilateral upper lobes. Air bronchograms are also appreciated in the left upper lobe, motion degraded study. Mild enlargement of the subcarinal lymph node --Acute on chronic hypoxic respiratory failure Likely secondary to multilobar pneumonia COVID-19 positive 05/19/2020 ESR 36, CRP 15.6, Ferritin 557 D-Dimer >78695 BNP 1495, fluid overload may also be playing a role PCT: 0.22 Continue with remdesivir for total of 5 days Dexamethasone 6 mg for total of 10 days Procalcitonin is only 0.22, no need for any antibiotics Patient D-dimer is significantly elevated. Agree with 40 mg twice daily of Lovenox. --TDRF Patient is size 6 trach Continue with O2 supplementation to keep oxygen saturation between 88-92% Plan: In/out: -1600 mL in the last 24 hours. Patient is Doppler bilateral lower extremity was negative for clot. Continue with 40 mg of Lovenox twice daily. Patient was saturating 98% on 6 L trach collar. Went down to 4 L. Goal saturation should be around 88-92%. Continue with remdesivir and dexamethasone. Continue with guaifenesin. Pulmonary will follow peripherally. Please call with any questions. Please note the above document was generated using voice recognition software. It may contain grammatical, syntax or spelling errors.Any formal questions or concerns about the content, text or information contained within the body of this dictation should be directly addressed to the provider for clarification. (2) Tracheostomy dependent: (3) Acute respiratory failure with hypoxia: Admission and Anticipated Discharge Date Admission Date: May 19, 2020 Subjective Patient seen and examined at bedside. No acute distress, no adverse events overnight. Patient was on trach collar resting comfortably the time of examination. His saturation was 98% on 6 L. Went down to 4 L. Patient only opens his eyes to commands. Does not follow commands. Review of Systems Review of Systems: Unobtainable due to mental health condition and Unobtainabl e due to cognitive status Physical Exam Physical Exam: Constitutional: No acute distress HEENT: EOMI, PERRLA Respiratory system: Decreased air entry bilaterally, no wheeze, no rhonchi, mild crackles appreciated bilaterally CVS: S1-S2 positive, no murmurs or gallops Abdomen: Soft, nontender, nondistended, positive bowel sounds x4, positive for PEG Extremities: +2 pulses bilaterally radialis/ dorsalis pedis, no cyanosis, no edema, contractures appreciated bilateral upper extremity especially in the hands Neuro: Awake alert, patient opens his eyes to voice. Does not follow commands. Psych: Unable to assess G/U: Positive Rod Skin: no rashes, warm and dry Lymphatic: no cervical or axillary lymphadenopathy Results & Data Results & Data ([facility]) Vital Signs (Past 12 Hours) Vital Signs Temp Pulse Resp BP Pulse Ox 05/21/20 07:25 36.6 C 90 24 132/91 94 05/21/20 04:15 36.7 C 89 20 130/89 97 05/21/20 06:44 05/21/20 06:44 PG Care Time/CCT Total # of Minutes Spent Total Time Spent with Patient: Total time spent is greater than 50% in coordination of care (as documented) at patient's floor/unit and/or counseling patient: Coding Level of Care Code 90987 Subseq Hosp Care Lvl 3 Diagnoses Pneumonia due to COVID-19 virus U07.1; J12.89 Tracheostomy dependent Z93.0 Acute respiratory failure with hypoxia J96.01
[2020-05-21] MEDS ORDERED: FUROSEMIDE 20 MG TAB PO ONE (18:14)
[2020-05-21] MEDS: ALBUT/IPRATROP 3MG/0.5MG NEB 3 ML VIAL NEB SCH (19:57)
--- NOTE | 2020-05-21 20:56 | Hospitalist Progress Note ---
Date of Service May 21, 2020 Assessment & Plan (1) Pneumonia due to COVID-19 virus: extensive on CTA chest. 10-day course of IV decadron 6mg daily. day #2. 5-day course of IV remdesivir. day #2. s/p plasma 05/20. CTA chest neg for PE. Dopplers legs neg DVT. add duonebs q6h today. cont robitussin q6h scheduled. repeat cxr in am. consider tracheal aspirate to r/o bacterial superinfection. cont trach care. I am concerned patient is worsening. give 20mg lasix today -- keep even or mildly negative. appreciate pulmonary consultation and recommendations. marked elevation d-dimer, extensive infiltrates on CTA, comorbidities, etc all portains poor prognosis. I voiced this to Octaviano, his brother, by phone again today. [id number] Octaviano still wants his brother full code. (2) Acute and chronic respiratory failure with hypoxia: acute component 2nd to COVID-19 pneumonia. see above. (3) Elevated d-dimer: CTA chest w/o PEs Dopplers legs neg DVTs lovenox 40mg BID for DVT prophylaxis. marked dimer elevation is 2nd to inflammatory cascade from COVID-19. this is poor prognostic indicator. (4) Schizophrenia: With behavioral disturbances in the past. Patient was evaluated by Psychiatry at last visit Continue Haldol 2mg PEG BID (5) Aortic stenosis: Severe on last echo (6) H/O: stroke with residual effects: Noted Continue asa secondary prevention (7) Dementia: severe by history nonverbal (8) Seizure disorder: Chronic appears to have frequent myoclonus on exam follow for now cont Valproic acid 500mg per PEG BID -- obtain level am cont Keppra 750mg per PEG BID (9) Diabetes: uncontrolled - 2nd steroids increase lantus adjust novolog correction and add carb coverage (10) Coronary artery disease: No prior stents or CABG by history. Echo from 01/04/20 wtih normal EF, severe aortic stenosis Continue ASA 81mg po daily (11) GERD (gastroesophageal reflux disease): pepcid 20mg per PEG BID (12) Anemia: stable h/h today repeat cbc am (13) Tracheostomy dependent: placed during [facility] (14) Presence of externally removable percutaneous endoscopic gastrostomy (PEG) tube: tolerating tube feeding regimen of Peptamen 1.5 appreciate nutrition assistance (15) DVT prophylaxis: lovenox 40mg BID - higher dose due to high risk of VTE with COVID updated Octaviano extensively by phone yesterday and today Admission and Anticipated Discharge Date Admission Date: May 19, 2020 Subjective patient received plasma last pm w/o incident. staff report frequent suctioning. secretions are thick at times. no obvious seizures. unresponsive, nonverbal. tolerating tube feeds - up to 45cc/hr. Review of Systems Review of Systems: Unobtainable due to cognitive status and Unobtainable due to reduced consciousness Physical Exam Constitutional: + ill appearing, + thin, + cachectic, + altered mental status and + frail appearing; + not well developed and + not well nourished Eyes: PERRL Respiratory: + respiratory distress, + retractions, + cough and + tachypneic Auscultation: + diminished lung sounds, + crackles and + wheezes very course BS today - worse than yesterday Cardiovascular: Rate/Rhythm: regular rate and regular rhythm Heart Sounds: normal S1, normal S2 and + murmur Vessels: posterior tibial pulses present and dorsalis pedis pulses present; no JVD Extremities: no edema Gastrointestinal (Abdomen): normal bowel sounds, soft, nontender, no hepatosplenomegaly Skin: PEG tube site abdominal wall clean/dry Psychiatric: Orientation: + not alert and + not oriented x 3 Results & Data Results & Data ([facility]) Vital Signs (Past 12 Hours) Vital Signs Temp Pulse Pulse Resp BP Pulse Ox 05/21/20 19:57 36.0 C L 81 20 163/118 H 99 05/21/20 15:00 36.5 C 90 112/72 96 05/21/20 14:46 90 05/21/20 11:00 36.6 C 97 H 22 124/85 96 Laboratory Results Laboratory Results - last 24 hr 05/19/20 05/19/20 05/21/20 19:58 22:20 01:23 WBC RBC Hgb Hct MCV MCH MCHC RDW Std Deviation RDW Coeff of Kase[place] Plt Count MPV Sodium Potassium Chloride Carbon Dioxide Anion Gap BUN Creatinine Est Cr Clr Drug Dosing Est GFR ( Amer) Est GFR (Non-Af Amer) BUN/Creatinine Ratio Glucose POC Glucose 172 H Calcium Magnesium AST ALT Bld Cult Staph aureus PCR Negative Blood Culture MRSA PCR Negative Blood Type O Positive Antibody Screen NEGATIVE 05/21/20 05/21/20 05/21/20 05:30 06:44 06:44 WBC 11.51 H RBC 4.87 Hgb 14.0 Hct 44.4 MCV 91.2 MCH 28.7 MCHC 31.5 L RDW Std Deviation 52.1 H RDW Coeff of [place]ase[place] 15.8 H Plt Count 264 MPV 9.4 Sodium 140 Potassium 3.4 L D Chloride 101 Carbon Dioxide 33 H Anion Gap 6.0 BUN 33 H Creatinine 0.81 Est Cr Clr Drug Dosing 74.7 Est GFR ( Amer) 103.6 Est GFR (Non-Af Amer) 89.4 BUN/Creatinine Ratio 40.4 H Glucose 150 H POC Glucose 142 H Calcium 9.1 Magnesium 2.3 AST 30 ALT 33 Bld Cult Staph aureus PCR Blood Culture MRSA PCR Blood Type Antibody Screen 05/21/20 05/21/20 05/21/20 12:43 15:42 15:46 WBC RBC Hgb Hct MCV MCH MCHC RDW Std Deviation RDW Coeff of [place]asey Plt Count MPV Sodium Potassium Chloride Carbon Dioxide Anion Gap BUN Creatinine Est Cr Clr Drug Dosing Est GFR ( Amer) Est GFR (Non-Af Amer) BUN/Creatinine Ratio Glucose POC Glucose 257 H 317 H* 315 H* Calcium Magnesium AST ALT Bld Cult Staph aureus PCR Blood Culture MRSA PCR Blood Type Antibody Screen PG Care Time/CCT Total # of Minutes Spent Total Time Spent with Patient: Total time spent is greater than 50% in coordination of care (as documented) at patient's floor/unit and/or counseling patient: Coding Level of Care Code 46611 Subseq Hosp Care Lvl 2 Diagnoses Pneumonia due to COVID-19 virus U07.1; J12.89 Acute and chronic respiratory failure with hypoxia J96.21 Elevated d-dimer R79.89 Schizophrenia F20.9 Schizophrenia type: unspecified Aortic stenosis I35.0 Cardiac valve disease etiology: nonrheumatic H/O: stroke with residual effects I69.30 Dementia F03.91 Dementia behavioral disturbance: with behavioral disturbance Dementia type: unspecified type Seizure disorder G40.909 Diabetes E11.9; Z79.4 Diabetes mellitus complication status: without complication Diabetes mellitus meterman insulin use: with intermediate use Diabetes mellitus type: type 2 Coronary artery disease I25.10 Associated angina: without angina Coronary Disease-Associated Artery/Lesion type: [place] artery [place] vs. transplanted heart: [place] heart GERD (gastroesophageal reflux disease) K21.9 Esophagitis presence: esophagitis presence not specified Anemia D64.9 Anemia type: unspecified type Tracheostomy dependent Z93.0 Presence of externally removable percutaneous endoscopic gastrostomy (PEG) tube Z93.1 DVT prophylaxis Z29.9 (1) Diabetes Diabetes mellitus complication status: without complication Diabetes mellitus intermediate insulin use: with intermediate use Diabetes mellitus type: type 2 Qualified Code(s): E11.9 - Type 2 diabetes mellitus without complications; Z79.4 - termite control representative (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 (2) Coronary artery disease Associated angina: without angina Coronary Disease-Associated Artery/Lesion type: [place] artery [place] vs. transplanted heart: [place] heart Qualified Code(s): I25.10 - Atherosclerotic heart disease of [place] coronary artery without angina pectoris (3) Anemia Anemia type: unspecified type Qualified Code(s): D64.9 - Anemia, unspecified (4) Aortic stenosis Cardiac valve disease etiology: nonrheumatic Qualified Code(s): I35.0 - Nonr heumatic aortic (valve) stenosis (5) Dementia Dementia behavioral disturbance: with behavioral disturbance Dementia type: unspecified type Qualified Code(s): F03.91 - Unspecified dementia with behavioral disturbance (6) Schizophrenia Schizophrenia type: unspecified Qualified Code(s): F20.9 - Schizophrenia, unspecified (7) GERD (gastroesophageal reflux disease) Esophagitis presence: esophagitis presence not specified Qualified Code(s): K21.9 - Gastro-esophageal reflux disease without esophagitis
[2020-05-21] MEDS: INSULIN GLARGINE SOLOSTAR 100 UNITS/ML 3 ML PEN SC SCH (21:53)
[2020-05-22] MEDS: INSULIN ASPART 100 UNITS/ML 3 ML PEN SC SCH ×4 (00:35→18:43)
[2020-05-22] MEDS: CHECK fentaNYL PATCH PLACEMENT SCH ×3 (00:40→16:48)
[2020-05-22] MEDS: guaiFENesin SUGAR FREE 200 MG/10 ML UDC PEG SCH ×4 (00:41→18:23)
[2020-05-22] MEDS: SODIUM CHLORIDE 0.9% 10ML FLUSH IV SCH (02:58)
[2020-05-22] MEDS: REMDESIVIR 100mg: Days 2-5 IV SCH (02:58)
[2020-05-22] MEDS: PEPTAMEN 1.5 CAL 1,000 ML BAG PEG SCH (04:33)
[2020-05-22 07:28] LABS: BUN Creatinine Ratio 53.3 (10-20); Calcium 8.5 mg/dl (8.5-10.1); Creatinine Clr Calc Pharmacy 86.4 ml/min; Est GFR (African American) 109.4; Est GFR (Non-African American) 94.4
[2020-05-22] MEDS: ALBUT/IPRATROP 3MG/0.5MG NEB 3 ML VIAL NEB SCH ×4 (07:59→20:09)
[2020-05-22] MEDS: ASPIRIN 81 MG CHEW GT SCH (08:31)
[2020-05-22] MEDS: ASCORBIC ACID 500 MG TAB GT SCH (08:31)
[2020-05-22] MEDS: FAMOTIDINE 20 MG TAB JT SCH ×2 (08:31→20:32)
[2020-05-22] MEDS: VALPROIC ACID SOLN 500 MG/10 ML UDC PEG SCH ×2 (08:32→20:32)
[2020-05-22] MEDS: CHOLECALCIFEROL 1,000 UNITS 25 MCG TAB PEG SCH (08:32)
[2020-05-22] MEDS: POTASSIUM CHLORIDE 20 MEQ/15 ML UDC PEG SCH (08:33)
[2020-05-22] MEDS: levETIRAcetam ORAL SOLN 100MG/ML PEG SCH ×2 (08:33→20:32)
[2020-05-22] MEDS: HALOPERIDOL 2 MG/1 ML UDP GT SCH ×2 (08:33→20:31)
[2020-05-22] MEDS: ENOXAPARIN INJ 40 MG/0.4 ML SYR SQ SCH ×2 (08:34→20:31)
[2020-05-22] MEDS: ZINC SULFATE 220 MG CAPSULE GT SCH ×2 (08:36→20:32)
[2020-05-22] MEDS: DEXAMETHASONE SOD PHOSPHATE 6 MG in SYRINGE 0 ML IV SCH (08:36)
[2020-05-22] MEDS: INSULIN GLARGINE SOLOSTAR 100 UNITS/ML 3 ML PEN SQ SCH (09:01)
--- NOTE | 2020-05-22 09:04 | XRay Report ---
XR chest 1V portable CLINICAL HISTORY: COVID, respiratory failure COMPARISON STUDY: 05/19/2020 FINDINGS: The cardiac and mediastinal contours remain stable. There are persistent bilateral pulmonar y airspace opacities most pronounced within the left mid to lower lung zone and right upper lung zone . These are minimally improved. A tracheostomy tube is again visualized. There are no significant ple ural effusions.[ IMPRESSION: Minimal improvement in the bilateral pulmonary airspace opacities. ACT 112: Negative or not required by law. Electronically signed by: Carmelo Blankenship M.D. 05/22/2020 9:02 AM
--- NOTE | 2020-05-22 15:24 | Hospitalist Progress Note ---
Date of Service May 22, 2020 Assessment & Plan (1) Pneumonia due to COVID-19 virus: extensive on CTA chest. 10-day course of IV decadron 6mg daily started 05/20 5-day course of IV remdesivir started 05/20 s/p plasma 05/20. CTA chest neg for PE, noted for PNA that is likely viral Dopplers legs neg DVT. Nebs Q6h cont robitussin q6h scheduled. repeat cxr with minimal improvement in b/l opacities consider tracheal aspirate to r/o bacterial superinfection. cont trach care. Lasix PRN, 20mg PO on 05/21 and 05/22 appreciate pulmonary consultation and recommendations. marked elevation d-dimer, extensive infiltrates on CTA, comorbidities, etc all suggest poor prognosis. Prior physician spoke with brother to clarify, still wants pt full code. (2) Acute and chronic respiratory failure with hypoxia: acute component 2nd to COVID-19 pneumonia. see above. (3) Elevated d-dimer: CTA chest w/o PEs Dopplers legs neg DVTs lovenox 40mg BID for DVT prophylaxis. marked dimer elevation is 2nd to inflammatory cascade from COVID-19. this is poor prognostic indicator. (4) Schizophrenia: With behavioral disturbances in the past. Patient was evaluated by P sychiatry at last visit Continue Haldol 2mg PEG BID (5) Aortic stenosis: Severe on last echo (6) H/O: stroke with residual effects: Noted Continue asa secondary prevention (7) Dementia: severe by history nonverbal (8) Seizure disorder: Chronic appears to have frequent myoclonus on exam follow for now cont Valproic acid 500mg per PEG BID -- obtain level am cont Keppra 750mg per PEG BID (9) Diabetes: uncontrolled - 2nd steroids increase lantus adjust novolog correction and add carb coverage (10) Coronary artery disease: No prior stents or CABG by history. Echo from 01/04/20 wtih normal EF, severe aortic stenosis Continue ASA 81mg po daily (11) GERD (gastroesophageal reflux disease): pepcid 20mg per PEG BID (12) Anemia: stable h/h today repeat cbc am (13) Tracheostomy dependent: placed during prior hospitalization following prolonged intubation/mech ventilation episode (14) Presence of externally removable percutaneous endoscopic gastrostomy (PEG) tube: tolerating tube feeding regimen of Peptamen 1.5 appreciate nutrition assistance (15) DVT prophylaxis: lovenox 40mg BID - higher dose due to high risk of VTE with COVID Admission and Anticipated Discharge Date Admission Date: May 19, 2020 Subjective Nursing reports pt is stable. No new concerns. Review of Systems Review of Systems: Unable to obtain due to pt's mental status Physical Exam Constitutional: + ill appearing and + cachectic Eyes: normal visual [place] by confrontation and + anicteric sclerae Neck: normal visual inspection and trachea midline Respiratory: Auscultation: + crackles and + wheezes; no diminished lung sounds Cardiovascular: Rate/Rhythm: regular rate and regular rhythm Gastrointestinal (Abdomen): Inspection/Auscultation: abdomen not distended Percussion/Palpation: abdomen soft; abdomen nontender Musculoskeletal: Head/Neck/Chest: normocephalic and head atraumatic negative for edema, peripheral pulses intact Skin: no rashes, warm and dry Neurologic: + not awake and not confused Psychiatric: Orientation: + not alert Affect: + blunted affect Results & Data Results & Data ([facility]) Vital Signs (Past 12 Hours) Vital Signs Temp Pulse Pulse Pulse Resp BP Pulse Ox 05/22/20 12:30 36.5 C 96 H 20 128/87 97 05/22/20 12:21 95 H 05/22/20 11:19 97 H 22 94 05/22/20 08:38 36.5 C 92 H 18 145/95 H 99 05/22/20 08:07 87 20 94 05/22/20 04:00 36.4 C L 83 20 121/86 93 PG Care Time/CCT Total # of Minutes Spent Total Time Spent with Patient: Total time spent is greater than 50% in coordination of care (as documented) at patient's floor/unit and/or counseling patient: Coding Level of Care Code 90406 Subseq Hosp Care Lvl 2 Diagnoses Pneumonia due to COVID-19 virus U07.1; J12.89 Acute and chronic respiratory failure with hypoxia J96.21 Elevated d-dimer R79.89 Schizophrenia F20.9 Schizophrenia type: unspecified Aortic stenosis I35.0 Cardiac valve disease etiology: nonrheumatic H/O: stroke with residual effects I69.30 Dementia F03.91 Dementia type: unspecified type Dementia behavioral disturbance: with behavioral disturbance Seizure disorder G40.909 Diabetes E11.9; Z79.4 Diabetes mellitus type: type 2 Diabetes mellitus supervisor intermediates insulin use: with care home use Diabetes mellitus complication status: without complication Coronary artery disease I25.10 Coronary Disease-Associated Artery/Lesion type: [place] artery [place] vs. transplanted heart: [place] heart Associated angina: without angina GERD (gastroesophageal reflux disease) K21.9 Esophagitis presence: esophagitis presence not specified Anemia D64.9 Anemia type: unspecified type Tracheostomy dependent Z93.0 Presence of externally removable percutaneous endoscopic gastrostomy (PEG) tube Z93.1 DVT prophylaxis Z29.9 (1) Schizophrenia Schizophrenia type: unspecified Qualified Code(s): F20.9 - Schizophrenia, unspecified (2) Aortic stenosis Cardiac valve disease etiology: nonrheumatic Qualified Code(s): I35.0 - Nonrheumatic aortic (valve) stenosis (3) Dementia Dementia type: unspecified type Dementia behavioral disturbance: with behavioral disturbance Qualified Code(s): F03.91 - Unspecified dementia with behavioral disturbance (4) Diabetes Diabetes mellitus type: type 2 Diabetes mellitus care home insulin use: with supervisor intermediates use Diabetes mellitus complication status: without complication Qualified Code(s): E11.9 - Type 2 diabetes mellitus without complications; Z79.4 - long term care pharmacist (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 (5) Coronary artery disease Coronary Disease-Associated Artery/Lesion type: [place] artery [place] vs. transplanted heart: [place] heart Associated angina: without angina Qualified Code(s): I25.10 - Atherosclerotic heart disease of [place] coronary artery without angina pectoris (6) GERD (gastroesophageal reflux disease) Esophagitis presence: esophagitis presence not specified Qualified Code(s): K21.9 - Gastro-esophageal reflux disease without esophagitis (7) Anemia Anemia type: unspecified type Qualified Code(s): D64.9 - Anemia, unspecified
[2020-05-22] MEDS ORDERED: FUROSEMIDE 20 MG TAB PO ONE (15:34)
[2020-05-22] MEDS: INSULIN GLARGINE SOLOSTAR 100 UNITS/ML 3 ML PEN SC SCH (20:59)
[2020-05-23] MEDS: INSULIN ASPART 100 UNITS/ML 3 ML PEN SC SCH ×4 (00:30→18:26)
[2020-05-23] MEDS: CHECK fentaNYL PATCH PLACEMENT SCH ×4 (00:30→23:59)
[2020-05-23] MEDS: guaiFENesin SUGAR FREE 200 MG/10 ML UDC PEG SCH ×4 (00:30→18:13)
[2020-05-23] MEDS: REMDESIVIR 100mg: Days 2-5 IV SCH (02:27)
[2020-05-23] MEDS: SODIUM CHLORIDE 0.9% 10ML FLUSH IV SCH (02:28)
[2020-05-23] MEDS: PEPTAMEN 1.5 CAL 1,000 ML BAG PEG SCH (06:10)
[2020-05-23] MEDS: ALBUT/IPRATROP 3MG/0.5MG NEB 3 ML VIAL NEB SCH ×4 (07:09→18:59)
[2020-05-23 07:39] LABS: BUN Creatinine Ratio 47.7 (10-20); Calcium 9.2 mg/dl (8.5-10.1); Creatinine Clr Calc Pharmacy 87.6 ml/min; Est GFR (Non-African American) 94.9; Potassium 4.4 mmol/L (3.5-5.1)
[2020-05-23] MEDS: ASPIRIN 81 MG CHEW GT SCH (09:09)
[2020-05-23] MEDS: ZINC SULFATE 220 MG CAPSULE GT SCH ×2 (09:09→20:23)
[2020-05-23] MEDS: DEXAMETHASONE SOD PHOSPHATE 6 MG in SYRINGE 0 ML IV SCH (09:09)
[2020-05-23] MEDS: CHOLECALCIFEROL 1,000 UNITS 25 MCG TAB PEG SCH (09:10)
[2020-05-23] MEDS: POTASSIUM CHLORIDE 20 MEQ/15 ML UDC PEG SCH (09:10)
[2020-05-23] MEDS: VALPROIC ACID SOLN 500 MG/10 ML UDC PEG SCH ×2 (09:10→20:22)
[2020-05-23] MEDS: HALOPERIDOL 2 MG/1 ML UDP GT SCH ×2 (09:11→20:23)
[2020-05-23] MEDS: levETIRAcetam ORAL SOLN 100MG/ML PEG SCH ×2 (09:11→20:22)
[2020-05-23] MEDS: ASCORBIC ACID 500 MG TAB GT SCH (09:11)
[2020-05-23] MEDS: FAMOTIDINE 20 MG TAB JT SCH ×2 (09:12→20:22)
[2020-05-23] MEDS: ENOXAPARIN INJ 40 MG/0.4 ML SYR SQ SCH ×2 (09:12→20:23)
[2020-05-23] MEDS: INSULIN GLARGINE SOLOSTAR 100 UNITS/ML 3 ML PEN SQ SCH (10:00)
--- NOTE | 2020-05-23 16:03 | Hospitalist Progress Note ---
Date of Service May 23, 2020 Assessment & Plan (1) Pneumonia due to COVID-19 virus: extensive on CTA chest. 10-day course of IV decadron 6mg daily started 05/20 5-day course of IV remdesivir started 05/20 s/p plasma 05/20. CTA chest neg for PE, noted for PNA that is likely viral Dopplers legs neg DVT. Nebs Q6h cont robitussin q6h scheduled. repeat cxr with minimal improvement in b/l opacities consider tracheal aspirate to r/o bacterial superinfection. cont trach care. Lasix PRN, 20mg PO on 05/21 and 05/22 appreciate pulmonary consultation and recommendations. marked elevation d-dimer, extensive infiltrates on CTA, comorbidities, etc all suggest poor prognosis. Prior physician spoke with brother to clarify, still wants pt full code. (2) Acute and chronic respiratory failure with hypoxia: acute component 2nd to COVID-19 pneumonia. see above. (3) Elevated d-dimer: CTA chest w/o PEs Dopplers legs neg DVTs lovenox 40mg BID for DVT prophylaxis. marked dimer elevation is 2nd to inflammatory cascade from COVID-19. this is poor prognostic indicator. (4) Schizophrenia: With behavioral disturbances in the past. Patient was evaluated by P sychiatry at last visit Continue Haldol 2mg PEG BID (5) Aortic stenosis: Severe on last echo (6) H/O: stroke with residual effects: Noted Continue asa secondary prevention (7) Dementia: severe by history nonverbal (8) Seizure disorder: Chronic appears to have frequent myoclonus on exam follow for now cont Valproic acid 500mg per PEG BID -- obtain level am cont Keppra 750mg per PEG BID (9) Diabetes: uncontrolled - 2nd steroids increase lantus adjust novolog correction and add carb coverage (10) Coronary artery disease: No prior stents or CABG by history. Echo from 01/04/20 wtih normal EF, severe aortic stenosis Continue ASA 81mg po daily (11) GERD (gastroesophageal reflux disease): pepcid 20mg per PEG BID (12) Anemia: stable h/h (13) Tracheostomy dependent: placed during prior hospitalization following prolonged intubation/mech ventilation episode (14) Presence of externally removable percutaneous endoscopic gastrostomy (PEG) tube: tolerating tube feeding regimen of Peptamen 1.5 appreciate nutrition assistance (15) DVT prophylaxis: lovenox 40mg BID - higher dose due to high risk of VTE with COVID Admission and Anticipated Discharge Date Admission Date: May 19, 2020 Subjective Pt has been more comfortable today. Not as restless or SOB per nursing. Respiratory therapy has been working with pt and feel his lungs are more clear. He is apparently clearing secretions on his own to some extent. Review of Systems Review of Systems: Unable to obtain due to pt's mental status Physical Exam Constitutional: + ill appearing and + cachectic Neck: normal visual inspection and trachea midline Respiratory: no respiratory distress Cardiovascular: Rate/Rhythm: regular rate and regular rhythm Gastrointestinal (Abdomen): Inspection/Auscultation: abdomen not distended Percussion/Palpation: abdomen soft; abdomen nontender Musculoskeletal: Head/Neck/Chest: normocephalic and head atraumatic Skin: no rashes, warm and dry Neurologic: + not awake Psychiatric: Orientation: + not alert Affect: + blunted affect Results & Data Results & Data ([facility]) Vital Signs (Past 12 Hours) Vital Signs Temp Pulse Pulse Pulse Resp BP Pulse Ox 05/23/20 15:54 36.4 C L 101 H 23 130/89 99 05/23/20 15:47 98 H 05/23/20 15:15 71 17 93 05/23/20 12:08 36.4 C L 113 H 18 112/83 98 05/23/20 11:19 99 H 18 99 05/23/20 08:00 101 H 05/23/20 07:39 36.2 C L 90 16 135/93 94 05/23/20 07:09 77 18 94 PG Care Time/CCT Total # of Minutes Spent Total Time Spent with Patient: Total time spent is greater than 50% in coordination of care (as documented) at patient's floor/unit and/or counseling patient: Coding Level of Care Code 81241 Subseq Hosp Care Lvl 2 Diagnoses Pneumonia due to COVID-19 virus U07.1; J12.89 Acute and chronic respiratory failure with hypoxia J96.21 Elevated d-dimer R79.89 Schizophrenia F20.9 Schizophrenia type: unspecified Aortic stenosis I35.0 Cardiac valve disease etiology: nonrheumatic H/O: stroke with residual effects I69.30 Dementia F03.91 Dementia type: unspecified type Dementia behavioral disturbance: with behavioral disturbance Seizure disorder G40.909 Diabetes E11.9; Z79.4 Diabetes mellitus type: type 2 Diabetes mellitus regional intermodal truck driver insulin use: with regional intermodal truck driver use Diabetes mellitus complication status: without complication Coronary artery disease I25.10 Coronary Disease-Associated Artery/Lesion type: [place] artery [place] vs. transplanted heart: [place] heart Associated angina: without angina GERD (gastroesophageal reflux disease) K21.9 Esophagitis presence: esophagitis presence not specified Anemia D64.9 Anemia type: unspecified type Tracheostomy dependent Z93.0 Presence of externally removable percutaneous endoscopic gastrostomy (PEG) tube Z93.1 DVT prophylaxis Z29.9 (1) Schizophrenia Schizophrenia type: unspecified Qualified Code(s): F20.9 - Schizophrenia, unspecified (2) Aortic stenosis Cardiac valve disease etiology: nonrheumatic Qualified Code(s): I35.0 - Nonrheumatic aortic (valve) stenosis (3) Dementia Dementia type: unspecified type Dementia behavioral disturbance: with behavioral disturbance Qualified Code(s): F03.91 - Unspecified dementia with behavioral disturbance (4) Diabetes Diabetes mellitus type: type 2 Diabetes mellitus regional intermodal truck driver insulin use: with regional intermodal truck driver use Diabetes mellitus complication status: without complication Qualified Code(s): E11.9 - Type 2 diabetes mellitus without complications; Z79.4 - truck terminal manager (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 (5) Coronary artery disease Coronary Disease-Associated Artery/Lesion type: [place] artery [place] vs. transplanted heart: [place] heart Associated angina: without angina Qualified Code(s): I25.10 - Atherosclerotic heart disease of [place] coronary artery without angina pectoris (6) GERD (gastroesophageal reflux disease) Esophagitis presence: esophagitis presence not specified Qualified Code(s): K21.9 - Gastro-esophageal reflux disease without esophagitis (7) Anemia Anemia type: unspecified type Qualified Code(s): D64.9 - Anemia, unspecified
[2020-05-23] MEDS: fentaNYL 12 MCG/HR TDSY TD SCH (18:26)
[2020-05-23] MEDS: INSULIN GLARGINE SOLOSTAR 100 UNITS/ML 3 ML PEN SC SCH (20:45)
[2020-05-24] MEDS: INSULIN ASPART 100 UNITS/ML 3 ML PEN SC SCH ×4 (00:35→17:30)
[2020-05-24] MEDS: guaiFENesin SUGAR FREE 200 MG/10 ML UDC PEG SCH ×4 (00:52→17:31)
[2020-05-24] MEDS: REMDESIVIR 100mg: Days 2-5 IV SCH (02:12)
[2020-05-24] MEDS: SODIUM CHLORIDE 0.9% 10ML FLUSH IV SCH (02:13)
[2020-05-24] MEDS: PEPTAMEN 1.5 CAL 1,000 ML BAG PEG SCH (06:17)
[2020-05-24] MEDS: ALBUT/IPRATROP 3MG/0.5MG NEB 3 ML VIAL NEB SCH (08:18)
[2020-05-24] MEDS: DEXAMETHASONE SOD PHOSPHATE 6 MG in SYRINGE 0 ML IV SCH (09:03)
[2020-05-24] MEDS: ENOXAPARIN INJ 40 MG/0.4 ML SYR SQ SCH ×2 (09:03→22:10)
[2020-05-24] MEDS: INSULIN GLARGINE SOLOSTAR 100 UNITS/ML 3 ML PEN SQ SCH (09:04)
[2020-05-24] MEDS: levETIRAcetam ORAL SOLN 100MG/ML PEG SCH ×2 (09:05→22:10)
[2020-05-24] MEDS: HALOPERIDOL 2 MG/1 ML UDP GT SCH ×2 (09:05→22:12)
[2020-05-24] MEDS: ASCORBIC ACID 500 MG TAB GT SCH (09:06)
[2020-05-24] MEDS: VALPROIC ACID SOLN 500 MG/10 ML UDC PEG SCH ×2 (09:06→22:11)
[2020-05-24] MEDS: ASPIRIN 81 MG CHEW GT SCH (09:07)
[2020-05-24] MEDS: ZINC SULFATE 220 MG CAPSULE GT SCH ×2 (09:07→22:12)
[2020-05-24] MEDS: POTASSIUM CHLORIDE 20 MEQ/15 ML UDC PEG SCH (09:07)
[2020-05-24] MEDS: CHOLECALCIFEROL 1,000 UNITS 25 MCG TAB PEG SCH (09:08)
[2020-05-24] MEDS: FAMOTIDINE 20 MG TAB JT SCH ×2 (09:08→22:11)
[2020-05-24] MEDS: CHECK fentaNYL PATCH PLACEMENT SCH ×2 (09:10→16:05)
[2020-05-24] MEDS ORDERED: ALBUT/IPRATROP 3MG/0.5MG NEB 3 ML VIAL NEB PRN (09:39)
--- NOTE | 2020-05-24 18:48 | Hospitalist Progress Note ---
Date of Service May 24, 2020 Assessment & Plan (1) Pneumonia due to COVID-19 virus: extensive on CTA chest. 10-day course of IV decadron 6mg daily. day #6 today. 5-day course of IV remdesivir. day #5 today. s/p plasma 05/20. CTA chest neg for PE. Dopplers legs neg DVT. can d/c nebs. cont robitussin q6h scheduled. tracheal aspirate culture with gram negative deandre. starting meropenem today. at minimum has tracheitis; could have bacterial pneumonia in setting of COVID. (2) Acute and chronic respiratory failure with hypoxia: acute component 2nd to COVID-19 pneumonia. see above. (3) Elevated d-dimer: CTA chest w/o PEs Dopplers legs neg DVTs lovenox 40mg BID for DVT prophylaxis. marked dimer elevation is 2nd to inflammatory cascade from COVID-19. this is poor prognostic indicator. repeat dimer in am. (4) Schizophrenia: With behavioral disturbances in the past. Patient was evaluated by Psychiatry at last visit Continue Haldol 2mg PEG BID (5) Aortic stenosis: Severe on last echo (6) H/O: stroke with residual effects: Noted Continue asa secondary prevention (7) Dementia: severe by history nonverbal (8) Seizure disorder: Chronic has frequent myoclonus on exam cont Valproic acid 500mg per PEG BID -- recent level therapeutic/acceptable cont Keppra 750mg per PEG BID (9) Diabetes: uncontrolled - 2nd steroids increase lantus to 14 units adjust novolog correction (10) Coronary artery disease: No prior stents or CABG by history. Echo from 01/04/20 wtih normal EF, severe aortic stenosis Continue ASA 81mg po daily (11) GERD (gastroesophageal reflux disease): pepcid 20mg per PEG BID (12) Anemia: repeat cbc am for stability (13) Tracheostomy dependent: placed during prior hospitalization [facility] (14) Presence of externally removable percutaneous endoscopic gastrostomy (PEG) tube: tolerating tube feeding regimen of Peptamen 1.5 at 45cc/hr appreciate nutrition assistance (15) DVT prophylaxis: lovenox 40mg BID - higher dose due to high risk of VTE with COVID updated Octaviano extensively by phone today Admission and Anticipated Discharge Date Admission Date: May 19, 2020 Subjective nursing staff report copious white secretions requiring frequent suctioning. respiratory had asked if nebs could be discontinued since there has been no wheezing. tele overnight wnl. patient with eyes closed; randomly opens them during the visit. nonverbal - cannot provide history or ROS. Review of Systems Review of Systems: Unobtainable due to cognitive status and Unobtainable due to reduced consciousness Physical Exam Constitutional: + ill appearing, + thin, + cachectic, + altered mental status and + frail appearing; + not well developed and + not well nourished Neck: trach in place; copious white secretions at the opening Respiratory: Auscultation: + diminished lung sounds and + crackles (faint - b ases; course throughout otherwise ); no wheezes Cardiovascular: Rate/Rhythm: regular rate and regular rhythm Heart Sounds: normal S1, normal S2 and + murmur Vessels: posterior tibial pulses present and dorsalis pedis pulses present; no JVD Extremities: no edema Gastrointestinal (Abdomen): normal bowel sounds, soft, nontender, no hepatosplenomegaly PEG tube site c/d/i Psychiatric: Orientation: + not alert and + not oriented x 3 Results & Data Results & Data ([facility]) Vital Signs (Past 12 Hours) Vital Signs Temp Pulse Pulse Resp BP Pulse Ox 05/24/20 15:57 37.0 C 97 H 26 H 122/85 98 05/24/20 11:46 36.6 C 99 H 28 H 128/90 98 05/24/20 08:18 95 H 23 93 05/24/20 07:56 36.6 C 93 H 28 H 125/83 93 Laboratory Results Laboratory Results - last 24 hr 05/24/20 05/24/20 05/24/20 00:02 05:31 07:23 POC Glucose 159 H 122 H 139 H 05/24/20 05/24/20 12:04 17:25 POC Glucose 236 H 245 H PG Care Time/CCT Total # of Minutes Spent Total Time Spent with Patient: Total time spent is greater than 50% in coordination of care (as documented) at patient's floor/unit and/or counseling patient: Coding Level of Care Code 03007 Subseq Hosp Care Lvl 2 Diagnoses Pneumonia due to COVID-19 virus U07.1; J12.89 Acute and chronic respiratory failure with hypoxia J96.21 Elevated d-dimer R79.89 Schizophrenia F20.9 Schizophrenia type: unspecified Aortic stenosis I35.0 Cardiac valve disease etiology: nonrheumatic H/O: stroke with residual effects I69.30 Dementia F03.91 Dementia behavioral disturbance: with behavioral disturbance Dementia type: unspecified type Seizure disorder G40.909 Diabetes E11.9; Z79.4 Diabetes mellitus complication status: without complication 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 transplanted heart: [place] heart Qualified Code(s): I25.10 - Atherosclerotic heart disease of [place] coronary artery without angina pectoris (3) Anemia Anemia type: unspecified type Qualified Code(s): D64.9 - Anemia, unspecified (4) Aortic stenosis Cardiac valve disease etiology: nonrheumatic Qualified Code(s): I35.0 - Nonrheumatic aortic (valve) stenosis (5) Dementia Dementia behavioral disturbance: with behavioral disturbance Dementia type: unspecified type Qualified Code(s): F03.91 - Unspecified dementia with behavioral disturbance (6) Schizophrenia Schizophrenia type: unspecified Qualified Code(s): F20.9 - Schizophrenia, unspecified (7) GERD (gastroesophageal reflux disease) Esophagitis presence: esophagitis presence not specified Qualified Code(s): K21.9 - Gastro-esophageal reflux disease without esophagitis
[2020-05-24] MEDS ORDERED: MEROPENEM CONSULT ACITVE PRN (18:54)
[2020-05-24] MEDS: MEROPENEM 500 MG in SYRINGE 0 ML IV SCH (19:55)
[2020-05-24] MEDS: INSULIN GLARGINE SOLOSTAR 100 UNITS/ML 3 ML PEN SC SCH (22:13)
[2020-05-25] MEDS: CHECK fentaNYL PATCH PLACEMENT SCH ×3 (00:16→16:34)
[2020-05-25] MEDS: INSULIN ASPART 100 UNITS/ML 3 ML PEN SC SCH ×4 (00:16→17:54)
[2020-05-25] MEDS: guaiFENesin SUGAR FREE 200 MG/10 ML UDC PEG SCH ×4 (00:17→17:54)
[2020-05-25] MEDS: MEROPENEM 500 MG in SYRINGE 0 ML IV SCH ×2 (01:29→08:47)
[2020-05-25] MEDS: PEPTAMEN 1.5 CAL 1,000 ML BAG PEG SCH (06:12)
[2020-05-25 07:18] LABS: Hematocrit (blood only) 42.6 % (42-52); Hemoglobin 13.1 g/dL (14.0-18.0); Mean Corpuscular Hemoglobin 28.2 pg (25-34); Mean Corpuscular Hgb Conc 30.8 g/dL (32-36); Mean Corpuscular Volume 91.6 fL (80-100); Mean Platelet Volume 9.4 fL (7.4-10.4); Nucleated RBC # (auto) 0.03 K/uL (0-0); Nucleated RBC % (auto) 0.2 %; Platelet Count 338 K/uL (130-400); RDW Coefficient of Variation 16.2 % (11.5-14.5); RDW Standard Deviation 53.5 fL (36.4-46.3); Red Blood Count 4.65 M/uL (4.7-6.1); White Blood Count 13.95 K/uL (4.8-10.8)
[2020-05-25 07:37] LABS: D Dimer 7870 ug/L FEU (0-500)
[2020-05-25 07:41] LABS: BUN Creatinine Ratio 49.1 (10-20); Calcium 9.3 mg/dl (8.5-10.1); Creatinine Clr Calc Pharmacy 92.3 ml/min; Est GFR (African American) 112.7; Est GFR (Non-African American) 97.3; Potassium 4.5 mmol/L (3.5-5.1)
[2020-05-25] MEDS: CHOLECALCIFEROL 1,000 UNITS 25 MCG TAB PEG SCH (08:48)
[2020-05-25] MEDS: levETIRAcetam ORAL SOLN 100MG/ML PEG SCH ×2 (08:48→21:42)
[2020-05-25] MEDS: HALOPERIDOL 2 MG/1 ML UDP GT SCH ×2 (08:48→21:42)
[2020-05-25] MEDS: ZINC SULFATE 220 MG CAPSULE GT SCH ×2 (08:49→21:42)
[2020-05-25] MEDS: ENOXAPARIN INJ 40 MG/0.4 ML SYR SQ SCH ×2 (08:49→21:42)
[2020-05-25] MEDS: ASCORBIC ACID 500 MG TAB GT SCH (08:49)
[2020-05-25] MEDS: FAMOTIDINE 20 MG TAB JT SCH ×2 (08:50→21:43)
[2020-05-25] MEDS: VALPROIC ACID SOLN 500 MG/10 ML UDC PEG SCH ×2 (08:50→21:42)
[2020-05-25] MEDS: INSULIN GLARGINE SOLOSTAR 100 UNITS/ML 3 ML PEN SQ SCH (08:51)
[2020-05-25] MEDS: DEXAMETHASONE SOD PHOSPHATE 6 MG in SYRINGE 0 ML IV SCH (09:54)
[2020-05-25] MEDS: ASPIRIN 81 MG CHEW GT SCH (09:56)
[2020-05-25] MEDS: POTASSIUM CHLORIDE 20 MEQ/15 ML UDC PEG SCH (09:57)
[2020-05-25] MEDS: levoFLOXacin/D5W 750 MG/150 ML BAG IV SCH (12:22)
--- NOTE | 2020-05-25 19:50 | Hospitalist Progress Note ---
Date of Service May 25, 2020 Assessment & Plan (1) Pneumonia due to COVID-19 virus: extensive pneumonia as seen on admission CTA chest. 10-day course of IV decadron 6mg daily. day #7. s/p completed 5-day course of IV remdesivir with stable LFTs. s/p plasma 05/20. CTA chest neg for PE. Dopplers legs neg DVT. cont robitussin q6h scheduled. trach aspirate culture grew klebsiella - sensitive to cipro/levaquin. stop meropenem; change to IV levaquin daily. cont suctioning & trach care. 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 see above. (3) Elevated d-dimer: CTA chest w/o PEs Dopplers legs neg DVTs lovenox 40mg BID for DVT prophylaxis. marked dimer elevation is 2nd to inflammatory cascade from COVID-19. dimer improved significantly today [place] <10768 [place] [address]. (4) Schizophrenia: With behavioral disturbances in the past. Patient was evaluated by Psychiatry at last visit Continue Haldol 2mg PEG BID (5) Aortic stenosis: Severe on last echo (6) H/O: stroke with residual effects: Noted Continue asa secondary prevention (7) Dementia: severe by history nonverbal (8) Seizure disorder: Chronic appears to have frequent myoclonus on exam follow for now cont Valproic acid 500mg per PEG BID -- recent level therapeutic cont Keppra 750mg per PEG BID (9) Diabetes: uncontrolled - 2nd steroids cont lantus adjust novolog correction and carb coverage once again (10) Coronary artery disease: No prior stents or CABG by history. 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: placed during [facility] (14) Presence of externally removable percutaneous endoscopic gastrostomy (PEG) tube: tolerating tube feeding regimen of Peptamen 1.5 he is at goal of 45cc/hr continuously appreciate nutrition assistance (15) DVT prophylaxis: lovenox 40mg BID - higher dose due to high risk of VTE with COVID updated Octaviano (brother, JOEYA) extensively by phone tonight Admission and Anticipated Discharge Date Admission Date: May 19, 2020 Subjective no events overnight. staff report ongoing copious white secretions from trach - no worse from previous. no plugs reported. no distress due to mucous plugging. no seizures. tele wnl overnight. pt nonverbal - unable to provide any meaningful history or ROS. Review of Systems Review of Systems: Unobtainable due to cognitive status and Unobtainable due to reduced consciousness Physical Exam Constitutional: + ill appearing, + thin, + cachectic, + altered mental status and + frail appearing; + not well developed and + not well nourished Neck: trach - copious white secretions at os of trach; I used yankauer to suction these secretions Respiratory: + cough Auscultation: + diminished lung sounds and + crackles (with course BS b/l ) Cardiovascular: Rate/Rhythm: regular rate and regular rhythm Heart Sounds: normal S1, normal S2 and + murmur Vessels: posterior tibial pulses present and dorsalis pedis pulses present; no JVD Extremities: no edema Gastrointestinal (Abdomen): normal bowel sounds, soft, nontender, no hepatosplenomegaly PEG tube in place - clean/dry Psychiatric: Orientation: + not alert and + not oriented x 3 Results & Data Results & Data ([facility]) Vital Signs (Past 12 Hours) Vital Signs Temp Pulse Pulse Resp BP Pulse Ox 05/25/20 19:42 101 H 23 96 05/25/20 19:31 99 H 19 117/79 100 05/25/20 16:00 90 18 118/77 98 05/25/20 15:28 96 H 18 98 05/25/20 12:01 36.7 C 98 H 25 H 124/81 97 05/25/20 07:59 37.0 C 98 H 17 114/74 90 Laboratory Results Laboratory Results - last 24 hr 05/25/20 05/25/20 05/25/20 00:13 06:09 06:27 WBC 13.95 H RBC 4.65 L Hgb 13.1 L Hct 42.6 MCV 91.6 MCH 28.2 MCHC 30.8 L RDW Std Deviation 53.5 H RDW Coeff of Kasey 16.2 H Plt Count 338 MPV 9.4 Absolute Nucleated RBC 0.03 H Nucleated RBC % (auto) 0.2 D-Dimer Sodium Potassium Chloride Carbon Dioxide Anion Gap BUN Creatinine Est Cr Clr Drug Dosing Est GFR ( Amer) Est GFR (Non-Af Amer) BUN/Creatinine Ratio Glucose POC Glucose 147 H 124 H Calcium AST ALT 05/25/20 05/25/20 05/25/20 06:27 06:27 12:03 WBC RBC Hgb Hct MCV MCH MCHC RDW Std Deviation RDW Coeff of [place] Plt Count MPV Absolute Nucleated RBC Nucleated RBC % (auto) D-Dimer 7870 H* Sodium 140 Potassium 4.5 Chloride 106 Carbon Dioxide 30 Anion Gap 4.0 BUN 32 H Creatinine 0.66 Est Cr Clr Drug Dosing 92.3 Est GFR ( Amer) 112.7 Est GFR (Non-Af Amer) 97.3 BUN/Creatinine Ratio 49.1 H Glucose 130 H POC Glucose 160 H Calcium 9.3 AST 17 ALT 19 05/25/20 17:52 WBC RBC Hgb Hct MCV MCH MCHC RDW Std Deviation RDW Coeff of Kasey Plt Count MPV Absolute Nucleated RBC Nucleated RBC % (auto) D-Dimer Sodium Potassium Chloride Carbon Dioxide Anion Gap BUN Creatinine Est Cr Clr Drug Dosing Est GFR ( Amer) Est GFR (Non-Af Amer) BUN/Creatinine Ratio Glucose POC Glucose 249 H Calcium AST ALT PG Care Time/CCT Total # of Minutes Spent Total Time Spent with Patient: Total time spent is greater than 50% in salon coordinator rdination of care (as documented) at patient's floor/unit and/or counseling patient: Coding Level of Care Code 49208 Subseq Hosp Care Lvl 2 Diagnoses Pneumonia due to COVID-19 virus U07.1; J12.89 Acute and chronic respiratory failure with hypoxia J96.21 Elevated d-dimer R79.89 Schizophrenia F20.9 Schizophrenia type: unspecified Aortic stenosis I35.0 Cardiac valve disease etiology: nonrheumatic H/O: stroke with residual effects I69.30 Dementia F03.91 Dementia behavioral disturbance: with behavioral disturbance Dementia type: unspecified type Seizure disorder G40.909 Diabetes E11.9; Z79.4 Diabetes mellitus complication status: without complication Diabetes mellitus [facility] insulin use: with intermediate teacher use Diabetes mellitus type: type 2 Coronary artery disease I25.10 Associated angina: without angina Coronary Disease-Associated Artery/Lesion type: [place] artery [place] vs. transplanted heart: [place] heart GERD (gastroesophageal reflux disease) K21.9 Esophagitis presence: esophagitis presence not specified Anemia D64.9 Anemia type: unspecified type Tracheostomy dependent Z93.0 Presence of externally removable percutaneous endoscopic gastrostomy (PEG) tube Z93.1 DVT prophylaxis Z29.9 (1) Diabetes Diabetes mellitus complication status: without complication Diabetes mellitus [facility] insulin use: with intermediate teacher use Diabetes mellitus type: type 2 Qualified Code(s): E11.9 - Type 2 diabetes mellitus without complications; Z79.4 - [facility] (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 (2) Coronary artery disease Associated angina: without angina Coronary Disease-Associated Artery/Lesion type: [place] artery [place] vs. transplanted heart: [place] heart Qualified Cod e(s): I25.10 - Atherosclerotic heart disease of [place] coronary artery without angina pectoris (3) Anemia Anemia type: unspecified type Qualified Code(s): D64.9 - Anemia, unspecified (4) Aortic stenosis Cardiac valve disease etiology: nonrheumatic Qualified Code(s): I35.0 - Nonrheumatic aortic (valve) stenosis (5) Dementia Dementia behavioral disturbance: with behavioral disturbance Dementia type: unspecified type Qualified Code(s): F03.91 - Unspecified dementia with behavioral disturbance (6) Schizophrenia Schizophrenia type: unspecified Qualified Code(s): F20.9 - Schizophrenia, unspecified (7) GERD (gastroesophageal reflux disease) Esophagitis presence: esophagitis presence not specified Qualified Code(s): K21.9 - Gastro-esophageal reflux disease without esophagitis
[2020-05-25] MEDS: INSULIN GLARGINE SOLOSTAR 100 UNITS/ML 3 ML PEN SC SCH (22:22)
[2020-05-26] MEDS: INSULIN ASPART 100 UNITS/ML 3 ML PEN SC SCH ×4 (01:14→17:04)
[2020-05-26] MEDS: CHECK fentaNYL PATCH PLACEMENT SCH ×3 (01:22→15:48)
[2020-05-26] MEDS: guaiFENesin SUGAR FREE 200 MG/10 ML UDC PEG SCH ×4 (01:23→17:07)
[2020-05-26] MEDS: DEXTROSE 50% 50 ML SYRINGE IV PRN (06:06)
[2020-05-26] MEDS: HALOPERIDOL 2 MG/1 ML UDP GT SCH ×2 (07:53→21:00)
[2020-05-26] MEDS: levETIRAcetam ORAL SOLN 100MG/ML PEG SCH ×2 (07:54→21:00)
[2020-05-26] MEDS: INSULIN GLARGINE SOLOSTAR 100 UNITS/ML 3 ML PEN SQ SCH (07:54)
[2020-05-26] MEDS: ENOXAPARIN INJ 40 MG/0.4 ML SYR SQ SCH ×2 (07:54→21:08)
[2020-05-26] MEDS: FAMOTIDINE 20 MG TAB JT SCH ×2 (07:55→21:02)
[2020-05-26] MEDS: VALPROIC ACID SOLN 500 MG/10 ML UDC PEG SCH ×2 (07:55→21:01)
[2020-05-26] MEDS: ASCORBIC ACID 500 MG TAB GT SCH (07:56)
[2020-05-26] MEDS: CHOLECALCIFEROL 1,000 UNITS 25 MCG TAB PEG SCH (07:56)
[2020-05-26] MEDS: ZINC SULFATE 220 MG CAPSULE GT SCH ×2 (07:56→21:01)
[2020-05-26] MEDS: ASPIRIN 81 MG CHEW GT SCH (07:57)
[2020-05-26] MEDS: DEXAMETHASONE SOD PHOSPHATE 6 MG in SYRINGE 0 ML IV SCH (07:57)
[2020-05-26] MEDS: POTASSIUM CHLORIDE 20 MEQ/15 ML UDC PEG SCH (07:58)
[2020-05-26] MEDS: levoFLOXacin/D5W 750 MG/150 ML BAG IV SCH (12:28)
[2020-05-26] MEDS: fentaNYL 12 MCG/HR TDSY TD SCH (17:02)
--- NOTE | 2020-05-26 18:35 | Hospitalist Progress Note ---
Date of Service May 26, 2020 Assessment & Plan (1) Pneumonia due to COVID-19 virus: Stable; no better, no worse today. extensive pneumonia as seen on admission CTA chest. 10-day course of IV decadron 6mg daily. day #9. s/p completed 5-day course of IV remdesivir with stable LFTs. s/p plasma 05/20. CTA chest neg for PE. Dopplers legs neg DVT. cont robitussin q6h scheduled. trach aspirate culture grew klebsiella - sensitive to cipro/levaquin. currently on levaquin; this is day #3 of therapy. plan 7 days in total of Rx. cont suctioning & trach care. 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 see above. (3) Elevated d-dimer: CTA chest w/o PEs Dopplers legs neg DVTs lovenox 40mg BID for DVT prophylaxis. marked dimer elevation is 2nd to inflammatory cascade from COVID-19. dimer improved significantly -- down [place] <83464 [place] [address]. (4) Schizophrenia: With behavioral disturbances in the past. Patient was evaluated by Psychiatry at last visit Continue Haldol 2mg PEG BID (5) Aortic stenosis: Severe on last echo (6) H/O: stroke with residual effects: Noted Continue asa secondary prevention (7) Dementia: severe, advanced; patient is nonverbal and seemingly in vegetative state (8) Seizure disorder: Chronic appears to have frequent myoclonus on exam follow for now cont Valproic acid 500mg per PEG BID -- recent level therapeutic cont Keppra 750mg per PEG BID (9) Diabetes: control improved with adjustments in lantus/novolog (10) Coronary artery disease: No prior stents or CABG by history. 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: placed during prior hospitalization following prolonged intubation/[facility] ventilation episode (14) Presence of externally removable percutaneous endoscopic gastrostomy (PEG) tube: tolerating tube feeding regimen of Peptamen 1.5 he is at goal of 45cc/hr continuously appreciate nutrition assistance (15) DVT prophylaxis: lovenox 40mg BID - higher dose due to high risk of VTE with COVID updated Octaviano (brother, POA) extensively by phone tonrobert Brumfield very emotional on daily phone calls - crying at times Octaviano has been reluctant to make Fede comfort care/palliative in the past consider palliative care consult to help with these discussions Admission and Anticipated Discharge Date Admission Date: May 19, 2020 Subjective tele - sinus tach or NSR. staff report ongoing white secretions from trach requiring suctioning. NO issues overnight. tolerating tube feedings. patient nonverbal - ROS cannot be obtained nor HPI. Review of Systems Review of Systems: Unobtainable due to cognitive status and Other (Nonverbal, vegetative state) Physical Exam Constitutional: + ill appearing, + thin, + cachectic, + altered mental status and + frail appearing; + not well developed and + not well nourished Eyes: PERRL Neck: trach present; like previous exams - white, thin secretions present in trach Respiratory: + cough Auscultation: + diminished lung sounds and + crackles (with course BS b/l ) Cardiovascular: Rate/Rhythm: regular rate and regular rhythm Heart Sounds: normal S1, normal S2 and + murmur Vessels: posterior tibial pulses present and dorsalis pedis pulses present; no JVD Extremities: no edema Gastrointestinal (Abdomen): normal bowel sounds, soft, nontender, no hepatosplenomegaly Percussion/Palpation: + hernia (Umbilical - reducible) PEG tube site c/d/i Neurologic: muscle wasting of arms/legs; myoclonus of arms Psychiatric: Orientation: + not alert (Eyes open - stares; nothing purposeful) and + not oriented x 3 Results & Data Results & Data ([facility]) Vital Signs (Past 12 Hours) Vital Signs Temp Pulse Pulse Pulse Resp BP Pulse Ox 05/26/20 16:00 103 H 05/26/20 15:43 37.4 C 99 H 27 H 112/66 97 05/26/20 11:41 36.5 C 102 H 22 131/84 97 05/26/20 08:25 100 H 18 96 05/26/20 07:45 36.8 C 95 H 20 139/78 96 05/26/20 07:00 94 H Laboratory Results Laboratory Results - last 24 hr 05/25/20 05/26/20 05/26/20 22:19 00:02 05:52 POC Glucose 159 H 129 H 66 L* 05/26/20 05/26/20 05/26/20 05:55 06:17 07:44 POC Glucose 57 L* 172 H 150 H 05/26/20 05/26/20 11:43 16:34 POC Glucose 168 H 211 H PG Care Time/CCT Total # of Minutes Spent Total Time Spent with Patient: Total time spent is greater than 50% in coordination of care (as documented) at patient's floor/unit and/or counseling patient: Coding Level of Care Code 71871 Subseq Hosp Care Lvl 2 Diagnoses Pneumonia due to COVID-19 virus U07.1; J12.89 Acute and chronic respiratory failure with hypoxia J96.21 Elevated d-dimer R79.89 Schizophrenia F20.9 Schizophrenia type: unspecified Aortic stenosis I35.0 Cardiac valve disease etiology: nonrheumatic H/O: stroke with residual effects I69.30 Dementia F03.91 Dementia behavioral disturbance: with behavioral disturbance Dementia type: unspecified type Seizure disorder G40.909 Diabetes E11.9; Z79.4 Diabetes mellitus complication status: without complication 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 transplanted heart: [place] heart GERD (gastroesophageal reflux disease) K21.9 Esophagitis presence: esophagitis presence not specified Anemia D64.9 Anemia type: unspecified type Tracheostomy dependent Z93.0 Presence of externally removable percutaneous endoscopic gastrostomy (PEG) tube Z93.1 DVT prophylaxis Z29.9 (1) Diabetes Diabetes mellitus complication status: without complication Diabetes mellitus residential insulin use: with residential use Diabetes mellitus type: type 2 Qualified Code(s): E11.9 - Type 2 diabetes mellitus without complications; Z79.4 - senior living (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 (2) Coronary artery disease Associated angina: without angina Coronary Disease-Associated Artery/Lesion type: [place] artery [place] vs. transplanted heart: [place] heart Qualified Code(s): I25.10 - Atherosclerotic heart disease of [place] coronary artery without angina pectoris (3) Anemia Anemia type: unspecified type Qualified Code(s): D64.9 - Anemia, unspecified (4) Aortic stenosis Cardiac valve disease etiology: nonrheumatic Qualified Code(s): I35.0 - Nonrheumatic aortic (valve) stenosis (5) Dementia Dementia behavioral disturbance: with behavioral disturbance Dementia type: unspecified type Qualified Code(s): F03.91 - Unspecified dementia with behavioral disturbance (6) Schizophrenia Schizophrenia type: unspecified Qualified Code(s): F20.9 - Schizophrenia, unspecified (7) GERD (gastroesophageal reflux disease) Esophagitis presence: esophagitis presence not specified Qualified Code(s): K21.9 - Gastro-esophageal reflux disease without esophagitis
[2020-05-26] MEDS: INSULIN GLARGINE SOLOSTAR 100 UNITS/ML 3 ML PEN SC SCH (21:10)
[2020-05-27] MEDS: INSULIN ASPART 100 UNITS/ML 3 ML PEN SC SCH ×4 (00:12→18:18)
[2020-05-27] MEDS: CHECK fentaNYL PATCH PLACEMENT SCH ×3 (00:16→15:58)
[2020-05-27] MEDS: guaiFENesin SUGAR FREE 200 MG/10 ML UDC PEG SCH ×4 (00:18→18:18)
[2020-05-27] MEDS: DEXTROSE 50% 50 ML SYRINGE IV PRN (00:24)
[2020-05-27 08:06] LABS: BUN Creatinine Ratio 49.5 (10-20); Calcium 8.4 mg/dl (8.5-10.1); Creatinine Clr Calc Pharmacy 94.7 ml/min; Est GFR (African American) 113.4; Est GFR (Non-African American) 97.9; Magnesium 2.2 mg/dl (1.8-2.4); Potassium 4.6 mmol/L (3.5-5.1)
[2020-05-27] MEDS: VALPROIC ACID SOLN 500 MG/10 ML UDC PEG SCH ×2 (09:44→20:23)
[2020-05-27] MEDS: levETIRAcetam ORAL SOLN 100MG/ML PEG SCH ×2 (09:44→20:23)
[2020-05-27] MEDS: ZINC SULFATE 220 MG CAPSULE GT SCH ×2 (09:44→20:23)
[2020-05-27] MEDS: DEXAMETHASONE SOD PHOSPHATE 6 MG in SYRINGE 0 ML IV SCH (09:44)
[2020-05-27] MEDS: FAMOTIDINE 20 MG TAB JT SCH ×2 (09:45→20:24)
[2020-05-27] MEDS: ASCORBIC ACID 500 MG TAB GT SCH (09:45)
[2020-05-27] MEDS ORDERED: Nursing to Pharmacy Communication SCH (09:45)
[2020-05-27] MEDS: HALOPERIDOL 2 MG/1 ML UDP GT SCH ×2 (09:45→20:23)
[2020-05-27] MEDS: CHOLECALCIFEROL 1,000 UNITS 25 MCG TAB PEG SCH (09:45)
[2020-05-27] MEDS: ENOXAPARIN INJ 40 MG/0.4 ML SYR SQ SCH ×2 (09:46→20:23)
[2020-05-27] MEDS: ASPIRIN 81 MG CHEW GT SCH (09:49)
[2020-05-27] MEDS: POTASSIUM CHLORIDE 20 MEQ/15 ML UDC PEG SCH (09:49)
[2020-05-27] MEDS: INSULIN GLARGINE SOLOSTAR 100 UNITS/ML 3 ML PEN SQ SCH ×2 (09:49→10:03)
[2020-05-27] MEDS: levoFLOXacin/D5W 750 MG/150 ML BAG IV SCH (11:46)
--- NOTE | 2020-05-27 14:38 | Hospitalist Progress Note ---
Date of Service May 27, 2020 Assessment & Plan (1) Pneumonia due to COVID-19 virus: Stable; on room air today, no distress extensive pneumonia as seen on admission CTA chest. 10-day course of IV decadron 6mg daily. day #10 s/p completed 5-day course of IV remdesivir with stable LFTs. s/p plasma 05/20. CTA chest neg for PE. Dopplers legs neg DVT. cont robitussin q6h scheduled. trach aspirate culture grew klebsiella - sensitive to cipro/levaquin. currently on levaquin; this is day #4 of therapy. 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 breathing is stable on room air through tracheostomy (3) Elevated d-dimer: CTA chest w/o PEs Dopplers legs neg DVTs lovenox 40mg BID for DVT prophylaxis. marked dimer elevation is 2nd to inflammatory cascade from COVID-19. dimer improved significantly -- [place] <[address] [place] [address] (4) Schizophrenia: With behavioral disturbances in the past. Patient was evaluated by Psychiatry at last visit Continue Haldol 2mg PEG BID (5) Aortic stenosis: Severe on last echo (6) H/O: stroke with residual effects: Noted Continue asa secondary prevention (7) Dementia: severe, advanced; patient is nonverbal and seemingly in vegetative state (8) Seizure disorder: Chronic appears to have frequent myoclonus on exam follow for now cont Valproic acid 500mg per PEG BID -- recent level therapeutic cont Keppra 750mg per PEG BID (9) Diabetes: control improved with adjustments in lantus/novolog (10) Coronary artery disease: No prior stents or CABG by history. Echo from 01/04/20 wt normal EF, severe aortic stenosis Continue ASA 81mg po daily (11) GERD (gastroesophageal reflux disease): pepcid 20mg per PEG BID (12) Anemia: stable h/h during this stay (13) Tracheostomy dependent: placed during prior hospitalization following [facility] (14) Presence of externally removable percutaneous endoscopic gastrostomy (PEG) tube: tolerating tube feeding regimen of Peptamen 1.5 he is at goal of 45cc/hr continuously appreciate nutrition assistance (15) DVT prophylaxis: lovenox 40mg BID - higher dose due to high risk of VTE with COVID updated Octaviano (brother, JOEYA) extensively by phone Admission and Anticipated Discharge Date Admission Date: May 19, 2020 Subjective patient resting comfortably in bed, on room air via trach no events overnight, no issues this morning per RN reviewed chart, reviewed labs work this morning will call his brother this afternoon spoke with CM, could go back to [facility] if they have a bed tomorrow, can convert the Levaquin to via PEG Review of Systems Review of Systems: Unobtainable due to cognitive status Physical Exam Constitutional: + thin and comfortable; no acute distress Neck: + tracheostomy present Respiratory: normal respiratory effort; no respiratory distress Auscultation: + rhonchi; no crackles, no rales and no wheezes Cardiovascular: RRR, no murmur, no edema Gastrointestinal (Abdomen): normal bowel sounds, soft, nontender, no hepatosplenomegaly Musculoskeletal: Head/Neck/Chest: normocephalic, head atraumatic and neck supple Extremities: + abnormal strength (general weakness) and + muscle atrophy Skin: no rashes, warm and dry Neurologic: CN's II-XI intact bilaterally and + confused; no focal motor deficits Speech / Cognition: + abnormal speech Psychiatric: Orientation: alert; + not oriented x 3 Apperance: appeared stated age Results & Data Results & Data ([facility]) Vital Signs (Past 12 Hours) Vital Signs Temp Pulse Pulse Pulse Resp BP BP 05/27/20 11:52 37.4 C 96 H 18 115/86 05/27/20 10:31 110/80 05/27/20 08:24 37.0 C 80 22 93/67 L 05/27/20 07:32 99 H 05/27/20 04:00 37.5 C 101 H 20 130/74 Pulse Ox 05/27/20 11:52 99 05/27/20 10:31 05/27/20 08:24 95 05/27/20 07:32 05/27/20 04:00 95 Laboratory Results Laboratory Results - last 24 hr 05/26/20 05/26/20 05/27/20 16:34 20:21 00:03 Sodium Potassium Chloride Carbon Dioxide Anion Gap BUN Creatinine Est Cr Clr Drug Dosing Est GFR ( Amer) Est GFR (Non-Af Amer) BUN/Creatinine Ratio Glucose POC Glucose 211 H 143 H 69 L* Calcium Magnesium 05/27/20 05/27/20 05/27/20 00:48 06:16 06:29 Sodium 134 L Potassium 4.6 Chloride 104 Carbon Dioxide 26 Anion Gap 4.0 BUN 32 H Creatinine 0.65 Est Cr Clr Drug Dosing 94.7 Est GFR ( Amer) 113.4 Est GFR (Non-Af Amer) 97.9 BUN/Creatinine Ratio 49.5 H Glucose 94 POC Glucose 125 H 107 H Calcium 8.4 L Magnesium 2.2 05/27/20 11:50 Sodium Potassium Chloride Carbon Dioxide Anion Gap BUN Creatinine Est Cr Clr Drug Dosing Est GFR ( Amer) Est GFR (Non-Af Amer) BUN/Creatinine Ratio Glucose POC Glucose 123 H Calcium Magnesium Medications Administered Current Inpatient Medications Acetaminophen (Acetaminophen Susp 325 Mg/10.15 Ml Udc) 650 mg PEG Q6H PRN PRN Reason: Fever Or Pain Stop: 06/19/20 00:31 Albuterol (Albut/Ipratrop 3mg/0.5mg Neb 3 Ml Vial) 3 ml NEB Q4 PRN PRN Reason: Shortness Of Breath Or Wheezing Stop: 06/23/20 09:38 Ascorbic Acid (Ascorbic Acid 500 Mg Tab) 500 mg GT DAILY OFE Stop: 06/19/20 08:59 Last Admin: 05/27/20 09:45 Dose: 500 mg Documented by: Aspirin (Aspirin 81 Mg Chew) 81 mg GT DAILY OFE Stop: 06/19/20 08:59 Last Admin: 05/27/20 09:49 Dose: 81 mg Documented by: Dextrose (Dextrose 50% 50 Ml Syringe) 25 - 50 ml IV UD PRN; Protocol PRN Reason: Hypoglycemia Protocol Stop: 06/19/20 00:31 Last Admin: 05/27/20 00:24 Dose: 25 ml Documented by: Enoxaparin Sodium (Enoxaparin Inj 40 Mg/0.4 Ml Syr) 40 mg SQ BID OFE Stop: 06/19/20 08:59 Last Admin: 05/27/20 09:46 Dose: 40 mg Documented by: Enteral Nutritional Formula (Peptamen 1.5 Rohit 1,000 Ml Bag) 1,000 ml PEG UD OFE; Protocol Stop: 06/19/20 15:14 Last Admin: 05/25/20 06:12 Dose: 1,000 ml Documented by: Famotidine (Famotidine 20 Mg Tab) 20 mg JT BID OFE Stop: 06/19/20 08:59 Last Admin: 05/27/20 09:45 Dose: 20 mg Documented by: Fentanyl (Fentanyl 12 Mcg/Hr Tdsy) 12 mcg TD Q3D@1800 OFE Stop: 06/03/20 17:59 Last Admin: 05/26/20 17:02 Dose: 12 mcg Documented by: Glucagon (Glucagon For Inj 1 Mg Vial) 1 mg SQ UD PRN; Protocol PRN Reason: Hypoglycemia Protocol Stop: 06/19/20 00:31 Glucose (Glucose 10 Tabs/Tube) 4 - 8 tabs PO UD PRN; Protocol PRN Reason: Hypoglycemia Protocol Stop: 06/19/20 00:31 Glucose (Glucose 40% Gel 15 Gm Tube) 15 - 30 gm PO UD PRN; Protocol PRN Reason: Hypoglycemia Protocol Stop: 06/19/20 00:31 Guaifenesin (Guaifenesin Sugar Free 200 Mg/10 Ml Udc) 200 mg PEG Q6H OFE Stop: 06/19/20 18:44 Last Admin: 05/27/20 11:46 Dose: 200 mg Documented by: Haloperidol Lactate (Haloperidol 2 Mg/1 Ml Udp) 2 mg GT BID OFE Stop: 06/19/20 08:59 Last Admin: 05/27/20 09:45 Dose: 2 mg Documented by: Hydrocortisone (Hydrocortisone Hc 2.5% Crm 30gm Tube) 1 appln EXT Q12 PRN PRN Reason: Pain Stop: 06/19/20 00:54 Dexamethasone Sodium Phosphate (6 mg/ Syringe) 1.5 mls @ 1 mls/min IV DAILY OFE Stop: 06/19/20 08:59 Last Admin: 05/27/20 09:44 Dose: 1 mls/min Documented by: Levofloxacin/Dextrose (Levaquin/D5w) 750 mg in 150 mls @ 100 mls/hr IV Q24H OFE; Protocol Stop: 05/31/20 11:59 Last Infusion: 05/27/20 14:28 Dose: Infused Documented by: Insulin Aspart (Insulin Aspart 100 Units/Ml 3 Ml Pen) 0 units SC Q6 [facility] Stop: 06/19/20 01:14 Last Admin: 05/27/20 11:54 Dose: 9 units Documented by: Insulin Glargine (Insulin Glargine Solostar 100 Units/Ml 3 Ml Pen) 20 units SQ DAILY@0600 [facility] Stop: 06/26/20 08:59 Last Admin: 05/27/20 09:49 Dose: 20 units Documented by: Insulin Glargine (Insulin Glargine Solostar 100 Units/Ml 3 Ml Pen) 14 units SC DAILY@1800 [facility] Stop: 06/26/20 17:59 Levetiracetam (Levetiracetam Oral Soln 100mg/Ml) 750 mg PEG BID [facility] Stop: 06/19/20 08:59 Last Admin: 05/27/20 09:44 Dose: 750 mg Documented by: Katharinecellaneous (Fentanyl Patch Remove & Waste) 1 ea N/A Q3D@1759 [facility] Stop: 06/19/20 17:58 Last Admin: 05/26/20 17:00 Dose: 1 ea Documented by: Earle (Check Fentanyl Patch Placement) 1 ea N/A QS [facility] Stop: 06/19/20 00:31 Last Admin: 05/27/20 09:45 Dose: 1 ea Documented by: Earle (Carbohydrates For Hypoglycemia ) 15 - 30 gm PO UD PRN PRN Reason: Hypoglycemia Protocol Stop: 06/19/20 00:31 Ondansetron HCl (Ondansetron Inj 2 Mg/Ml 2 Ml Vial) 4 mg IV Q6H PRN PRN Reason: Nausea Stop: 06/18/20 23:27 Potassium Chloride (Potassium Chloride 20 Meq/15 Ml Udc) 20 meq PEG QAM [facility] Stop: 06/20/20 08:59 Last Admin: 05/27/20 09:49 Dose: 20 meq Documented by: Tramadol HCl (Tramadol Hcl 50 Mg Tablet) 50 mg PO Q4 PRN PRN Reason: Pain Stop: 06/19/20 00:31 Valproic Acid (Valproic Acid Soln 500 Mg/10 Ml Udc) 500 mg PEG BID [facility] Stop: 06/19/20 08:59 Last Admin: 05/27/20 09:44 Dose: 500 mg Documented by: Vitamin D (Cholecalciferol 1,000 Units 25 Mcg Tab) 5,000 units PEG DAILY OFE Stop: 06/19/20 08:59 Last Admin: 05/27/20 09:45 Dose: 5,000 units Documented by: Zinc Sulfate (Zinc Sulfate 220 Mg Capsule) 220 mg GT BID OFE Stop: 06/19/20 08:59 Last Admin: 05/27/20 09:44 Dose: 220 mg Documented by: PG Care Time/CCT Total # of Minutes Spent Total Time Spent with Patient: Total time spent is greater than 50% in coordination of care (as documented) at patient's floor/unit and/or counseling patient: Coding Level of Care Code 14476 Subseq Hosp Care Lvl 2 Diagnoses Pneumonia due to COVID-19 virus U07.1; J12.89 Acute and chronic respiratory failure with hypoxia J96.21 Elevated d-dimer R79.89 Schizophrenia F20.9 Schizophrenia type: unspecified Aortic stenosis I35.0 Cardiac valve disease etiology: nonrheumatic H/O: stroke with residual effects I69.30 Dementia F03.91 Dementia type: unspecified type Dementia behavioral disturbance: with behavioral disturbance Seizure disorder G40.909 Diabetes E11.9; Z79.4 Diabetes mellitus type: type 2 Diabetes mellitus fdc insulin use: with fdc use Diabetes mellitus complication status: without complication Coronary artery disease I25.10 Coronary Disease-Associated Artery/Lesion type: [place] artery [place] vs. transplanted heart: [place] heart Associated angina: without angina GERD (gastroesophageal reflux disease) K21.9 Esophagitis presence: esophagitis presence not specified Anemia D64.9 Anemia type: unspecified type Tracheostomy dependent Z93.0 Presence of externally removable percutaneous endoscopic gastrostomy (PEG) tube Z93.1 DVT prophylaxis Z29.9 (1) Schizophrenia Schizophrenia type: unspecified Qualified Code(s): F20.9 - Schizophrenia, unspecified (2) Aortic stenosis Cardiac valve disease etiology: nonrheumatic Qualified Code(s): I35.0 - Nonrheumatic aortic (valve) stenosis (3) Dementia Dementia type: unspecified type Dementia behavioral disturbance: with behavioral disturbance Qualified Code(s): F03.91 - Unspecified dementia with behavioral disturbance (4) Diabetes Diabetes mellitus type: type 2 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 transplanted heart: [place] heart Associated angina: without angina Qualified Code(s): I25.10 - Atherosclerotic heart disease of [place] coronary artery without angina pectoris (6) GERD (gastroesophageal reflux disease) Esophagitis presence: esophagitis presence not specified Qualified Code(s): K21.9 - Gastro-esophageal reflux disease without esophagitis (7) Anemia Anemia type: unspecified type Qualified Code(s): D64.9 - Anemia, unspecified
[2020-05-27] MEDS: PEPTAMEN 1.5 CAL 1,000 ML BAG PEG SCH (16:59)
[2020-05-27] MEDS ORDERED: INSULIN GLARGINE SOLOSTAR 100 UNITS/ML 3 ML PEN SC SCH (18:00)
[2020-05-28] MEDS: guaiFENesin SUGAR FREE 200 MG/10 ML UDC PEG SCH ×3 (01:43→12:57)
[2020-05-28] MEDS: INSULIN ASPART 100 UNITS/ML 3 ML PEN SC SCH ×4 (06:21→14:54)
[2020-05-28] MEDS: INSULIN GLARGINE SOLOSTAR 100 UNITS/ML 3 ML PEN SQ SCH (06:21)
[2020-05-28] MEDS: CHECK fentaNYL PATCH PLACEMENT SCH ×3 (09:15→16:04)
[2020-05-28] MEDS: levETIRAcetam ORAL SOLN 100MG/ML PEG SCH (09:16)
[2020-05-28] MEDS: CHOLECALCIFEROL 1,000 UNITS 25 MCG TAB PEG SCH (09:16)
[2020-05-28] MEDS: VALPROIC ACID SOLN 500 MG/10 ML UDC PEG SCH (09:17)
[2020-05-28] MEDS: HALOPERIDOL 2 MG/1 ML UDP GT SCH (09:17)
[2020-05-28] MEDS: ASCORBIC ACID 500 MG TAB GT SCH (09:17)
[2020-05-28] MEDS: ENOXAPARIN INJ 40 MG/0.4 ML SYR SQ SCH (09:17)
[2020-05-28] MEDS: FAMOTIDINE 20 MG TAB JT SCH (09:17)
[2020-05-28] MEDS: ZINC SULFATE 220 MG CAPSULE GT SCH (09:18)
[2020-05-28] MEDS: ASPIRIN 81 MG CHEW GT SCH (09:24)
[2020-05-28] MEDS: POTASSIUM CHLORIDE 20 MEQ/15 ML UDC PEG SCH (09:25)
[2020-05-28] MEDS: DEXAMETHASONE SOD PHOSPHATE 6 MG in SYRINGE 0 ML IV SCH (09:25)
[2020-05-28] MEDS: levoFLOXacin/D5W 750 MG/150 ML BAG IV SCH (12:50)
--- NOTE | 2020-05-28 16:31 | Discharge Summary ---
Date of Service May 28, 2020 Admission HPI Per Admitting Provider Patient is minimally verbal at baseline and unable to provide details of events prior to arrival to [facility]. History obtained through discussion with ER attending, chart review and discussion with patient's brother, Octaviano Hinojosa. Fede Hinojosa is a 69yo male with history of dementia, diabetes, HTN, schizoaffective disorder and seizures presenting from [facility] with Covid-19 PNA, tachypnea. Patient with prolonged and complicated hospital stay at [facility] from 01/04/20 - 01/25/20 when he was admitted with lethargy, hypoxia, metabolic encephalopathy secondary to PNA. Patient developed acute hypoxic respiratory failure and was intubated. He was unable to be weaned from the vent and subsequently had percutaneous tracheostomy placed on 01/15/20. Patient with quinolone resistant E. coli bacteremia and UTI as well as ESBL Klebsiella sputum. He was treated with Ceftolazone. 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 [facility]. Per patient's brother, patient was diagnosed with Covid-19 a few days ago. He had a d-dimer test that was markedly elevated. Brother was told that patient had a blood clot and was being started on Lovenox. Patient's brother insisted that patient be sent to [facility] for further evaluation. Per review of records, patient HAS NOT been hypoxic. Report that he is on trach collar 6L/min at baseline. He has been noted to be more tachypneic, however. Upon arrival to [facility] patient afebrile, tachycardic at 100bpm, BP slightly elevated, TACHYPNEIC at 40bpm, adequate saturation on 6L TC ER Course: Cefepime 2gm, Vancomycin 1500mg, NSS x 500mL, Dexamethasone 6mg IV Principal Diagnosis COVID 19 pneumonia Discharge Exam Constitutional + thin and comfortable; no acute distress Neck + tracheostomy present Respiratory normal respiratory effort; no respiratory distress Auscultation: + rhonchi; no crackles, no rales and no wheezes Cardiovascular RRR, no murmur, no edema Gastrointestinal (Abdomen) normal bowel sounds, soft, nontender, no hepatosplenomegaly Musculoskeletal Head/Neck/Chest: normocephalic, head atraumatic and neck supple Extremities: + abnormal strength (general weakness) and + muscle atrophy Skin no rashes, warm and dry Neurologic CN's II-XI intact bilaterally and + confused; no focal motor deficits Speech / Cognition: + abnormal speech Psychiatric Orientation: alert; + not oriented x 3 Apperance: appeared stated age Discharge Data Allergies Allergy/AdvReac Type Severity Reaction Status Date / Time No Known Allergies Allergy Unverified 05/19/20 22:59 Consultations 05/19/20 22:02 ED Decision to Admit Stat 05/20/20 00:32 Consult Pulmonology Routine Ordered Studies 05/19/20 20:25 CT angio chest PE protocol Urgent 05/20/20 17:02 US venous doppler LE BI Routine Hospital Course (1) Pneumonia due to COVID-19 virus: Stable; on baseline 6L for several days, no distress extensive pneumonia as seen on admission CTA chest. 10-day course of IV decadron 6mg daily. day #10 s/p completed 5-day course of IV remdesivir with stable LFTs. s/p plasma 05/20. CTA chest neg for PE. Dopplers legs neg DVT. cont robitussin q6h scheduled. trach aspirate culture grew klebsiella - sensitive to cipro/levaquin. currently on levaquin; this is day #5 of therapy. 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 breathing is stable on 6L through tracheostomy which is his baseline (3) Elevated d-dimer: CTA chest w/o PEs Dopplers legs neg DVTs lovenox 40mg BID for DVT prophylaxis while admitted, can resume 40mg daily on discharge marked dimer elevation is 2nd to inflammatory cascade from COVID-19. dimer improved significantly -- [place] <92[address] [place] [address]. (4) Schizophrenia: With behavioral disturbances in the past. Patient was evaluated by Psychiatry at last visit Continue Haldol 2mg PEG BID (5) Aortic stenosis: Severe on last echo (6) H/O: stroke with residual effects: Noted Continue asa secondary prevention (7) Dementia: severe, advanced; patient is nonverbal and seemingly in vegetative state (8) Seizure disorder: Chronic appears to have frequent myoclonus on exam follow for now cont Valproic acid 500mg per PEG BID -- recent level therapeutic cont Keppra 750mg per PEG BID (9) Diabetes: control improved with adjustments in lantus/novolog continue home regimen on discharge but recommend reducing Lantus to 12 units, most recent HbA1c 6.6% which is too tight of control (10) Coronary artery disease: No prior stents or CABG by history. 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: placed during prior hospitalization following prolonged intubation/[facility] ventilation episode (14) Presence of externally removable percutaneous endoscopic gastrostomy (PEG) tube: tolerating tube feeding regimen of Peptamen 1.5 he is at goal of 45cc/hr continuously appreciate nutrition assistance can resume Glucerna on discharge (15) DVT prophylaxis: lovenox 40mg BID - higher dose due to high risk of VTE with COVID updated Octaviano (brother, POA) extensively by phone Total Time Total Time Spent Total Time Spent (In Minutes): 32 minutes Total Time Includes: Examination of the Patient, Discharge Planning and Medication Reconciliation Discharge Plan Discharge Items Patient Disposition: Transfer [facility] Reason For Visit: TACHYNPNEA, COVID-19 PNA Discharge Diagnosis: COVID 19 pneumonia Klebsiella pneumonia Chronic hypoxic respiratory failure Condition on Discharge: Good Goals: complete course of dexamethasone complete course of Levaquin Activity: Resume your previous activity Non-emergency contact: Primary Care Provider Call non-emergency contact if: you have any medication questions and your symptoms worsen Follow-up/Referrals: Wen Samuels [Primary Care Provider] - Diet: Nothing by Mouth Diet Comment: tube feeds Pending Studies at Discharge: No Stand-Alone Forms: My [facility] [employer] Skilled Items Patient informed of condition?: Yes DNR: No Discharge Level of Care: Skilled Communicable Disease: Yes Discharge Prognosis: Stable Lines: None Urinary Catheter: Yes Medications and DC Order Prescriptions: Continued aspirin 81 mg Tablet,Chewable 81 mg feeding tube DAILY Qty: 90 RF: 0 fentanyl 12 mcg/hr Patch 72 Hour 12 mcg transdermal Q72H Qty: 10 RF: 0 polyethylene glycol 3350 [Miralax] 17 gram Powder In Packet 17 g PEG DAILY Qty: 30 RF: 0 haloperidol 2 mg tablet 2 mg feeding tube BID Qty: 60 RF: 0 Azithromycin Packet 250 mg G-tube .DAILY FOR 4 DAYS RF: 0 acetaminophen [Tylenol] 325 mg Tablet 650 mg feeding tube Q6 PRN (Reason: Fever Or Pain) RF: 0 tramadol 50 mg Tablet 50 mg feeding tube Q4 PRN (Reason: Pain) RF: 0 magnesium hydroxide [Milk of Magnesia] 400 mg/5 mL Suspension 30 ml feeding tube UD PRN (Reason: Constipation) RF: 0 ascorbic acid (vitamin C) [Vitamin C] 500 mg Tablet 500 mg feeding tube DAILY RF: 0 zinc 50 mg Tablet 50 mg feeding tube BID RF: 0 insulin lispro 100 unit/mL Solution 1 sliding scale dose SUBCUT USEASDIRECTD RF: 0 enoxaparin 40 mg/0.4 mL Syringe 40 mg SUBCUT DAILY RF: 0 cholecalciferol (vitamin D3) [Vitamin D3] 125 mcg (5,000 unit) Tablet 125 mcg feeding tube DAILY RF: 0 Glucerna 1.2 Rohit 0.06-1.2 gram-kcal/mL Liquid 1 ea feeding tube UD RF: 0 Anusol-HC 2.5 % Cream With Applicator 1 ea MI Q12 PRN (Reason: Pain) RF: 0 Ferrous Sulfate Liquid 300 mg PEG BID RF: 0 Guaifenesin Belinda 200mg/10ml 10 ml G-tube BID RF: 0 Keppra Solution 100mg/Ml 750 mg G-tube BID RF: 0 Liquid Protein Supp 30 ml G-tube BID RF: 0 Pantoprazole 2mg/Ml 40 mg PEG QAM RF: 0 Valproic Acid Belinda 250mg/5ml 500 mg PO BID RF: 0 Lantus Solostar U-100 Insulin 100 unit/mL (3 mL) insulin pen 16 unit subcut QAM RF: 0 Admission Data Admit Date/Time: 05/19/20 23:29 Attending Provider: Boyd Parr Admit Provider: Lavinia Menard Primary Care Provider: Wen Samuels Other Providers: Lavinia Menard ; Merlyn Henriquez ; Mitchel Melissa Coding Level of Care Code D/C Day Management >30 mins Diagnoses Pneumonia due to COVID-19 virus U07.1; J12.89 Acute and chronic respiratory failure with hypoxia J96.21 Elevated d-dimer R79.89 Schizophrenia F20.9 Schizophrenia type: unspecified Aortic stenosis I35.0 Cardiac valve disease etiology: nonrheumatic H/O: stroke with residual effects I69.30 Dementia F03.91 Dementia type: unspecified type Dementia behavioral disturbance: with behavioral disturbance Seizure disorder G40.909 Diabetes E11.9; Z79.4 Diabetes mellitus type: type 2 Diabetes mellitus 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 transplanted heart: [place] heart Associated angina: without angina GERD (gastroesophageal reflux disease) K21.9 Esophagitis presence: esophagitis presence not specified Anemia D64.9 Anemia type: unspecified type Tracheostomy dependent Z93.0 Presence of externally removable percutaneous endoscopic gastrostomy (PEG) tube Z93.1 DVT prophylaxis Z29.9
== END 2020-05-28 18:20 | DRG 177 ==
LOC: ED 19:20 → 2S 23:29 → SUATTDRO 23:29 → 2S 05-20 00:05 → 2E 05-23 21:23

== ENCOUNTER 2020-08-16 15:32 | Observation (INO) ==
[2020-08-16] MEDS ORDERED: levoFLOXacin/D5W 750 MG/150 ML BAG IV STA (15:47)
--- NOTE | 2020-08-16 15:55 | Emergency Department Note ---
Impression & Plan Respiratory distress, Tachycardia, Leukocytosis, Acute hypernatremia, Acute dehydration ED Provider Note NAME: FIOR ESCALANTE AGE: 69 SEX: M : 1950 ARRIVES VIA: Ambulance INFORMANT: [ems, nursing] ED PROVIDER(S): [Surinder Lu MD] CHIEF COMPLAINT: Respiratory problems HISTORY OF PRESENT ILLNESS: The patient is a 69-year old male who was sent to our ED for increased respiratory secretions. There is concern for pneumonia and even possibly sepsis. The patient is a full code. He has a tracheostomy, he has dementia, schizophrenia, he has a PEG tube. The patient was in our hospital for pneumonia late last year, he also was in the hospital for Covid. He is currently residing at [facility]. The patient can provide no history. Because of the increased secretions and concerns for recurrent pneumonia, he was sent for evaluation. Given the circumstances, no further history obtainable. REVIEW OF SYSTEMS: Unobtainable given his dementia and mental state. PMHx/PSHx: See Below SOCIAL HISTORY: See Below. PHYSICAL EXAM: GENERAL: Patient is in no acute distress. HEENT: No acute trauma, normocephalic atraumatic, mucous membranes moist, no nasal congestion, no scleral icterus. NECK: No stridor, trach collar in place over his tracheostomy. Thick secretions noted. LUNGS: Coarse breath sounds heard bilaterally, likely overriding sounds from the thick tracheostomy secretions. Slightly increased respiratory rate, no resp iratory distress. No wheezing. HEART: 4/6 systolic murmur, regular rhythm, mildly tachycardic. ABDOMEN: Soft, nontender, bowel sounds positive, no hernias, no peritonitis. There is a feeding tube located in the left upper quadrant. EXTREMITIES: No cyanosis or edema, full range of motion of all the joints without pain or difficulty, no signs for acute trauma. NEUROLOGIC: Awakens to voice, nonverbal. Does not follow commands. SKIN: No rash, no jaundice, no diaphoresis. DIFFERENTIAL DIAGNOSIS: Sepsis, UTI, pneumonia, metabolic abnormality, electrolyte abnormalities, car diac sources, cellulitis, UTI, bacteremia, intracerebral event, toxicologic etiology, neurologic event, as well as other pathologies. EMERGENCY DEPARTMENT COURSE/PROCEDURES: ECG: Indication was possible sepsis. The ECG shows a sinus tachycardia with a rate of 112. PVCs are noted. There is some baseline artifact. There is no obvious ST elevation. The QTc is 464. Continuous Cardiac Monitoring: An order was placed for continuous cardiac monitoring. The monitor shows a rate of 99 with normal sinus rhythm with PVCs. Critical Care Note: I have personally spent 38 minutes of critical care time in the direct management of this patient. This includes bedside care, interpretation of diagnostic studies, and testing, discussion with consultants, patient, and family members, and other required patient management activities. This 38 minutes is in excess of all separately billable procedures. MEDICAL DECISION MAKING: There is a moderate leukocytosis, this could be consistent with infection. There is no anemia, there is a normal platelet count. Sodium is elevated at 152, consistent with dehydration. Chloride also elevated at 117. BUN is elevated at 38, consistent with dehydration. No kidney failure. Glucose was low at 55, repeat BSG testing showed this value to be trending upwards. No concerning liver enzyme elevation. Procalcitonin level was not elevated. Inf luenza testing returned negative. Chest film showed improvement of the bilateral pulmonary infiltrates seen previously. Urinalysis result is still pending. Blood cultures are pending. The patient was given IV saline, 1 L. He received IV Levaquin as empiric antibiotic coverage. Patient was placed on D5 half-normal saline to help with his hydration and to keep his sugar value higher. I did have respiratory see the patient. They were able to suction his secretions and a culture and Gram stain have been ordered. The patient presents with increasing respiratory difficulty, increasing secre tions. He presented tachycardic. He appears dehydrated by work-up. Certainly, an early pneumonia is a possibility given his past history and presentation. I do think a hospital stay is warranted given our findings, I did speak with case management. The on-call hospitalist has been consulted. Of note, the patient's heart rate has improved with his IV fluid administration. He breathing seems better since being suctioned by respiratory care. Past Med/Surg History Medical History Alzheimer disease Chronic gout Chronic prescription opiate use Dementia Diabetes Gastrointestinal hemorrhage GERD (gastroesophageal reflux disease) Goals of care, counseling/discussion Hypertension Muscle weakness Peripheral vascular disease Pneumonia due to COVID-19 virus Schizoaffective disorder, chronic condition Seizure disorder Stroke Tachypnea Urinary tract infection Surgical History (Updated 05/20/20 @ 01:20 by Lavinia Menard DO) Status post insertion of percutaneous endoscopic gastrostomy (PEG) tube Tracheostomy in place Family History (Updated 05/20/20 @ 01:20 by Lavinia Menard DO) Other No significant family history Social History Smoking Status: Never smoker Preferred Language: Omani Communication Ability: Impaired Checker Loader Required: No marital status: Unknown Current Living Situation: Retirement Feels Safe at Home: Yes Assistive Devices: Oxygen - Continuous Allergies Allergies Allergy/AdvReac Type Severity Reaction Status Date / Time No Known Allergies Allergy Verified 08/16/20 16:16 Home Meds Home Medications Medication Instructions Recorded Confirmed Ferrous Sulfate Liquid 300 mg PEG BID 05/19/20 08/16/20 Guaifenesin Belinda 200mg/10ml 10 ml G-TUBE BID 05/19/20 08/16/20 Liquid Protein Supp 30 ml G-TUBE BID 05/19/20 08/16/20 Valproic Acid Belinda 250mg/5ml 500 mg PEG BID 05/19/20 08/16/20 acetaminophen [Tylenol] 650 mg FEEDING TUBE Q6 PRN 05/19/20 08/16/20 ascorbic acid (vitamin C) [Vitamin 500 mg FEEDING TUBE QAM 05/19/20 08/16/20 C] cholecalciferol (vitamin D3) 125 mcg FEEDING TUBE QAM 05/19/20 08/16/20 [Vitamin D3] insulin lispro 1 sliding scale dose SUBCUT 05/19/20 08/16/20 USEASDIRECTD tramadol 50 mg FEEDING TUBE Q4 PRN 05/19/20 08/16/20 zinc 50 mg FEEDING TUBE BID 05/19/20 08/16/20 esomeprazole magnesium 40 mg G-TUBE QAM 08/16/20 08/16/20 haloperidol lactate 2 mg PO Q12H 08/16/20 08/16/20 hydrocortisone [Anusol-HC] 1 applic HI BID PRN 08/16/20 08/16/20 levetiracetam [Keppra] 750 mg FEEDING TUBE BID 08/16/20 08/16/20 levofloxacin 750 mg FEEDING TUBE QAM 08/16/20 08/16/20 polyethylene glycol 3350 [Miralax] 17 g FEEDING TUBE QAM 08/16/20 08/16/20 Previous Rx's Medication Instructions Recorded aspirin 81 mg FEEDING TUBE DAILY #90 tab 01/25/20 fentanyl 12 mcg TRANSDERMAL Q72H #10 patch 01/25/20 Lantus Solostar U-100 Insulin 12 unit SUBCUT QAM 30 Days #3 ml 05/28/20 Results & Data (ED) Vital Signs Vital Signs - 24 hr 08/16/20 15:36 08/16/20 15:37 08/16/20 15:54 Temperature 36.7 C Temperature Source Oral Pulse Rate 116 H 115 H 108 H Pulse Rate from SpO2 Sensor 116 H 117 H Pulse Rhythm Regular Pulse Strength Normal Respiratory Rate 33 H 16 37 H Respiratory Effort / Characteristics Non-Labored Respiratory Depth Normal Respiratory Pattern Regular Blood Pressure 110/80 110/80 Blood Pressure Mean 90 90 Blood Pressure Position Lying Pulse Oximetry 94 95 95 Oxygen Delivery Method Trach Collar Oxygen Flow Rate 5 Sepsis Recent Fever Within 48 Hours No Sepsis New/Unexplained Change in Mental Status N/A Sepsis Action Taken by Nursing No Action Required 08/16/20 16:00 08/16/20 16:01 08/16/20 16:30 Temperature Temperature Source Pulse Rate 88 121 H 114 H Pulse Rate from SpO2 Sensor 122 H 121 H 112 H Pulse Rhythm Pulse Strength Respiratory Rate 31 H 22 32 H Respiratory Effort / Characteristics Respiratory Depth Respiratory Pattern Blood Pressure 118/98 Blood Pressure Mean 104 Blood Pressure Position Pulse Oximetry 93 95 Oxygen Delivery Method Oxygen Flow Rate Sepsis Recent Fever Within 48 Hours Sepsis New/Unexplained Change in Mental Status Sepsis Action Taken by Nursing 08/16/20 17:00 08/16/20 17:30 08/16/20 18:00 Temperature Temperature Source Pulse Rate 102 H 99 H 105 H Pulse Rate from SpO2 Sensor 94 H 104 H 105 H Pulse Rhythm Pulse Strength Respiratory Rate 29 H 39 H 20 Respiratory Effort / Characteristics Respiratory Depth Respiratory Pattern Blood Pressure Blood Pressure Mean Blood Pressure Position Pulse Oximetry 95 99 96 Oxygen Delivery Method Oxygen Flow Rate Sepsis Recent Fever Within 48 Hours Sepsis New/Unexplained Change in Mental Status Sepsis Action Taken by Nursing 08/16/20 18:30 08/16/20 19:00 Temperature Temperature Source Pulse Rate 107 H 103 H Pulse Rate from SpO2 Sensor 106 H 103 H Pulse Rhythm Pulse Strength Respiratory Rate 21 Respiratory Effort / Characteristics Respiratory Depth Respiratory Pattern Blood Pressure Blood Pressure Mean Blood Pressure Position Pulse Oximetry 97 98 Oxygen Delivery Method Oxygen Flow Rate Sepsis Recent Fever Within 48 Hours Sepsis New/Unexplained Change in Mental Status Sepsis Action Taken by Retirement Medications Current Medication List: was personally reviewed by me Laboratory Data Attestation: I reviewed the patient's lab results. Result diagrams: 08/16/20 16:27 08/16/20 16:27 Lab Results 08/16/20 08/16/20 08/16/20 Range/Units 16:27 16:27 16:27 WBC 14.16 H (4.8-10.8) K/uL RBC 5.08 (4.7-6.1) M/uL Hgb 14.5 (14.0-18.0) g/dL Hct 47.8 (42-52) % MCV 94.1 (80-100) fL MCH 28.5 (25-34) pg MCHC 30.3 L (32-36) g/dL RDW Std Deviation 57.6 H (36.4-46.3) fL RDW Coeff of Kasey 16.6 H (11.5-14.5) % Plt Count 242 (130-400) K/uL MPV 10.6 H (7.4-10.4) fL Neutrophils % (Manual) 55.3 % Lymphocytes % (Manual) 28.6 % Monocytes % (Manual) 9.8 % Metamyelocytes % (Man) 2.7 % Myelocytes % (Man) 3.6 % Neutrophils # (Manual) 7.83 H (1.4-6.5) K/uL Total Absolute Neuts 7.83 H (1.4-6.5) K/uL Lymphocytes # (Manual) 4.05 H (1.2-3.4) K/uL Total Abs Lymphocytes 4.05 H (1.2-3.4) K/uL Monocytes # (Manual) 1.39 H (0.11-0.59) K/uL Metamyelocytes # (Man) 0.38 H (0-0) K/uL Myelocytes # (Manual) 0.51 H (0-0) K/uL PT (9.0-12.0) Seconds INR (0.9-1.1) APTT (21.0-31.0) Seconds PTT Ratio Sodium 152 H (136-145) mmol/L Potassium 4.2 (3.5-5.1) mmol/L Chloride 117 H (98-107) mmol/L Carbon Dioxide 28 (21-32) mmol/L Anion Gap 7.0 (3-11) BUN 38 H (7-18) mg/dl Creatinine 0.83 (0.6-1.4) mg/dl Est Cr Clr Drug Dosing 82.0 ml/min Est GFR ( Amer) 102.6 Est GFR (Non-Af Amer) 88.5 BUN/Creatinine Ratio 46.3 H (10-20) Glucose 55 L (70-99) mg/dl POC Glucose (70-99) mg/dl Lactate (0.4-2.0) mmol/L Calcium 9.5 (8.5-10.1) mg/dl Magnesium 2.5 H (1.8-2.4) mg/dl Total Bilirubin 0.3 (0.2-1) mg/dl AST 23 (15-37) U/L ALT 18 (12-78) U/L Alkaline Phosphatase 82 (45-117) U/L Troponin I 0.038 (0-0.045) ng/ml Total Protein 6.7 (6.4-8.2) gm/dl Albumin 2.0 L (3.4-5.0) gm/dl Globulin 4.7 H (2.5-4.0) gm/dl Albumin/Globulin Ratio 0.4 L (0.9-2) Procalcitonin 0.15 (0-0.5) ng/ml COVID-19 Eval Order Influ A Molecular Assay (Negative) Influ B Molecular Assay (Negative) SARS-CoV-2, RNA, NAAT (NEGATIVE) 08/16/20 08/16/20 08/16/20 Range/Units 16:28 17:12 18:09 WBC (4.8-10.8) K/uL RBC (4.7-6.1) M/uL Hgb (14.0-18.0) g/dL Hct (42-52) % MCV (80-100) fL MCH (25-34) pg MCHC (32-36) g/dL RDW Std Deviation (36.4-46.3) fL RDW Coeff of Kasey (11.5-14.5) % Plt Count (130-400) K/uL MPV (7.4-10.4) fL Neutrophils % (Manual) % Lymphocytes % (Manual) % Monocytes % (Manual) % Metamyelocytes % (Man) % Myelocytes % (Man) % Neutrophils # (Manual) (1.4-6.5) K/uL Total Absolute Neuts (1.4-6.5) K/uL Lymphocytes # (Manual) (1.2-3.4) K/uL Total Abs Lymphocytes (1.2-3.4) K/uL Monocytes # (Manual) (0.11-0.59) K/uL Metamyelocytes # (Man) (0-0) K/uL Myelocytes # (Manual) (0-0) K/uL PT (9.0-12.0) Seconds INR (0.9-1.1) APTT (21.0-31.0) Seconds PTT Ratio Sodium (136-145) mmol/L Potassium (3.5-5.1) mmol/L Chloride (98-107) mmol/L Carbon Dioxide (21-32) mmol/L Anion Gap (3-11) BUN (7-18) mg/dl Creatinine (0.6-1.4) mg/dl Est Cr Clr Drug Dosing ml/min Est GFR ( Amer) Est GFR (Non-Af Amer) BUN/Creatinine Ratio (10-20) Glucose (70-99) mg/dl POC Glucose 70 82 (70-99) mg/dl Lactate (0.4-2.0) mmol/L Calcium (8.5-10.1) mg/dl Magnesium (1.8-2.4) mg/dl Total Bilirubin (0.2-1) mg/dl AST (15-37) U/L ALT (12-78) U/L Alkaline Phosphatase (45-117) U/L Troponin I (0-0.045) ng/ml Total Protein (6.4-8.2) gm/dl Albumin (3.4-5.0) gm/dl Globulin (2.5-4.0) gm/dl Albumin/Globulin Ratio (0.9-2) Procalcitonin (0-0.5) ng/ml COVID-19 Eval Order Influ A Molecular Assay Negative (Negative) Influ B Molecular Assay Negative (Negative) SARS-CoV-2, RNA, NAAT (NEGATIVE) 08/16/20 08/16/20 08/16/20 Range/Units 18:27 18:27 19:32 WBC (4.8-10.8) K/uL RBC (4.7-6.1) M/uL Hgb (14.0-18.0) g/dL Hct (42-52) % MCV (80-100) fL MCH (25-34) pg MCHC (32-36) g/dL RDW Std Deviation (36.4-46.3) fL RDW Coeff of Kasey (11.5-14.5) % Plt Count (130-400) K/uL MPV (7.4-10.4) fL Neutrophils % (Manual) % Lymphocytes % (Manual) % Monocytes % (Manual) % Metamyelocytes % (Man) % Myelocytes % (Man) % Neutrophils # (Manual) (1.4-6.5) K/uL Total Absolute Neuts (1.4-6.5) K/uL Lymphocytes # (Manual) (1.2-3.4) K/uL Total Abs Lymphocytes (1.2-3.4) K/uL Monocytes # (Manual) (0.11-0.59) K/uL Metamyelocytes # (Man) (0-0) K/uL Myelocytes # (Manual) (0-0) K/uL PT 10.7 (9.0-12.0) Seconds INR 1.1 (0.9-1.1) APTT 25.7 (21.0-31.0) Seconds PTT Ratio 1.0 Sodium (136-145) mmol/L Potassium (3.5-5.1) mmol/L Chloride (98-107) mmol/L Carbon Dioxide (21-32) mmol/L Anion Gap (3-11) BUN (7-18) mg/dl Creatinine (0.6-1.4) mg/dl Est Cr Clr Drug Dosing ml/min Est GFR ( Amer) Est GFR (Non-Af Amer) BUN/Creatinine Ratio (10-20) Glucose (70-99) mg/dl POC Glucose (70-99) mg/dl Lactate (0.4-2.0) mmol/L Calcium (8.5-10.1) mg/dl Magnesium (1.8-2.4) mg/dl Total Bilirubin (0.2-1) mg/dl AST (15-37) U/L ALT (12-78) U/L Alkaline Phosphatase (45-117) U/L Troponin I (0-0.045) ng/ml Total Protein (6.4-8.2) gm/dl Albumin (3.4-5.0) gm/dl Globulin (2.5-4.0) gm/dl Albumin/Globulin Ratio (0.9-2) Procalcitonin (0-0.5) ng/ml COVID-19 Eval [facility] A Molecular Assay (Negative) Influ B Molecular Assay (Negative) SARS-CoV-2, RNA, NAAT NEGATIVE (NEGATIVE) 08/16/20 08/16/20 Range/Units 19:39 20:40 WBC (4.8-10.8) K/uL RBC (4.7-6.1) M/uL Hgb (14.0-18.0) g/dL Hct (42-52) % MCV (80-100) fL MCH (25-34) pg MCHC (32-36) g/dL RDW Std Deviation (36.4-46.3) fL RDW Coeff of Kasey (11.5-14.5) % Plt Count (130-400) K/uL MPV (7.4-10.4) fL Neutrophils % (Manual) % Lymphocytes % (Manual) % Monocytes % (Manual) % Metamyelocytes % (Man) % Myelocytes % (Man) % Neutrophils # (Manual) (1.4-6.5) K/uL Total Absolute Neuts (1.4-6.5) K/uL Lymphocytes # (Manual) (1.2-3.4) K/uL Total Abs Lymphocytes (1.2-3.4) K/uL Monocytes # (Manual) (0.11-0.59) K/uL Metamyelocytes # (Man) (0-0) K/uL Myelocytes # (Manual) (0-0) K/uL PT (9.0-12.0) Seconds INR (0.9-1.1) APTT (21.0-31.0) Seconds PTT Ratio Sodium (136-145) mmol/L Potassium (3.5-5.1) mmol/L Chloride (98-107) mmol/L Carbon Dioxide (21-32) mmol/L Anion Gap (3-11) BUN (7-18) mg/dl Creatinine (0.6-1.4) mg/dl Est Cr Clr Drug Dosing ml/min Est GFR ( Amer) Est GFR (Non-Af Amer) BUN/Creatinine Ratio (10-20) Glucose (70-99) mg/dl POC Glucose 126 H (70-99) mg/dl Lactate 1.8 (0.4-2.0) mmol/L Calcium (8.5-10.1) mg/dl Magnesium (1.8-2.4) mg/dl Total Bilirubin (0.2-1) mg/dl AST (15-37) U/L ALT (12-78) U/L Alkaline Phosphatase (45-117) U/L Troponin I (0-0.045) ng/ml Total Protein (6.4-8.2) gm/dl Albumin (3.4-5.0) gm/dl Globulin (2.5-4.0) gm/dl Albumin/Globulin Ratio (0.9-2) Procalcitonin (0-0.5) ng/ml COVID-19 Eval Order Influ A Molecular Assay (Negative) Influ B Molecular Assay (Negative) SARS-CoV-2, RNA, NAAT (NEGATIVE) Administered Medications Discontinued Medications Sodium Chloride (Nss 1000ml) 1,000 mls @ 999 mls/hr IV .Q1H1M OFE Stop: 08/16/20 17:00 Last Infusion: 08/16/20 18:11 Dose: 0 mls/hr Documented by: [id number] Admin: 08/16/20 16:41 Dose: 999 mls/hr Documented by: [id number] Levofloxacin/Dextrose (Levaquin/D5w) 750 mg in 150 mls @ 100 mls/hr IV NOW STA Stop: 08/16/20 17:16 Last Infusion: 08/16/20 18:11 Dose: 0 mls/hr Documented by: [id number] Admin: 08/16/20 16:41 Dose: 100 mls/hr Documented by: [id number] Dextrose/Sodium Chloride (D5w And 1/2nss) 1,000 mls @ 125 mls/hr IV .Q8H OFE Stop: 09/15/20 17:14 Last Admin: 08/16/20 17:34 Dose: 125 mls/hr Documented by: [id number] Imaging Data Radiologist's Impression: XR chest 1V portable CLINICAL HISTORY: SEPSIS COMPARISON STUDY: 05/22/2020 FINDINGS: The heart is mildly enlarged. There is aortic tortuosity/ectasia. A tracheostomy tube is again visualized. There has been interval improvement in the bilateral airspace opacities with residual interstitial thickening. There are no significant pleural effusions. IMPRESSION: Interval improvement in the bilateral pulmonary airspace opacities with residual interstitial thickening. Discharge Plan Visit Data Chief Complaint: Respiratory Problems Stated Complaint: ILLNESS ED Provider: Surinder Lu Discharge Problem: Respiratory distress, Tachycardia, Leukocytosis, Acute hypernatremia, Acute dehydration Patient Disposition: Admitted As Inpatient Condition: Fair Discharge Instructions Interventions: ED Discharge Assessment Last Done: 08/16/20 19:38 Forms Stand Alone Forms: Retroficiency Prescriptions Prescriptions: No Action aspirin 81 mg Tablet,Chewable 81 mg feeding tube DAILY Qty: 90 RF: 0 fentanyl 12 mcg/hr Patch 72 Hour 12 mcg transdermal Q72H Qty: 10 RF: 0 acetaminophen [Tylenol] 325 mg Tablet 650 mg feeding tube Q6 PRN (Reason: Fever Or Pain) RF: 0 tramadol 50 mg Tablet 50 mg feeding tube Q4 PRN (Reason: Pain) RF: 0 ascorbic acid (vitamin C) [Vitamin C] 500 mg Tablet 500 mg feeding tube QAM RF: 0 zinc 50 mg Tablet 50 mg feeding tube BID RF: 0 insulin lispro 100 unit/mL Solution 1 sliding scale dose SUBCUT USEASDIRECTD RF: 0 cholecalciferol (vitamin D3) [Vitamin D3] 125 mcg (5,000 unit) Tablet 125 mcg feeding tube QAM RF: 0 Ferrous Sulfate Liquid 300 mg PEG BID RF: 0 Guaifenesin Belinda 200mg/10ml 10 ml G-tube BID RF: 0 Liquid Protein Supp 30 ml G-tube BID RF: 0 Valproic Acid Belinda 250mg/5ml 500 mg PEG BID RF: 0 Lantus Solostar U-100 Insulin 100 unit/mL (3 mL) insulin pen 12 unit subcut QAM 30 Days Qty: 3 RF: 0 hydrocortisone [Anusol-HC] 2.5 % Cream With Perineal Applicator 1 applic HI BID PRN (Reason: Hemorrhoids) RF: 0 levofloxacin 750 mg Tablet 750 mg feeding tube QAM RF: 0 haloperidol lactate 2 mg/mL Concentrate 2 mg PO Q12H RF: 0 levetiracetam [Keppra] 100 mg/mL Solution 750 mg feeding tube BID RF: 0 esomeprazole magnesium [address] For Susp In Packet 40 mg G-tube QAM RF: 0 polyethylene glycol 3350 [Miralax] 17 gram powder in packet 17 g feeding tube QAM RF: 0 Referrals Referrals: Wen Samuels [Primary Care Provider] - Discharge Problem: Leukocytosis Qualifiers: Leukocytosis type: unspecified Qualified Code(s): D72.829 - Elevated white blood cell count, unspecified
[2020-08-16] MEDS ORDERED: SODIUM CHLORIDE 0.9% 1000ML 1,000 ML IV SCH (16:00)
--- NOTE | 2020-08-16 16:00 | XRay Report ---
XR chest 1V portable CLINICAL HISTORY: SEPSIS COMPARISON STUDY: 05/22/2020 FINDINGS: The heart is mildly enlarged. There is aortic tortuosity/ectasia. A tracheostomy tube is ag ain visualized. There has been interval improvement in the bilateral airspace opacities with residual interstitial thickening. There are no significant pleural effusions. IMPRESSION: Interval improvement in the bilateral pulmonary airspace opacities with residual intersti tial thickening. ACT 112: Negative or not required by law. Electronically signed by: Carmelo Blankenship M.D. 08/16/2020 3:59 PM
[2020-08-16 16:59] LABS: BUN Creatinine Ratio 46.3 (10-20); Calcium 9.5 mg/dl (8.5-10.1); Est GFR (African American) 102.6; Est GFR (Non-African American) 88.5; Magnesium 2.5 mg/dl (1.8-2.4); Potassium 4.2 mmol/L (3.5-5.1)
[2020-08-16 17:02] LABS: Albumin Globulin Ratio 0.4 (0.9-2); Bilirubin,Total 0.3 mg/dl (0.2-1); Globulin 4.7 gm/dl (2.5-4.0); Total Protein 6.7 gm/dl (6.4-8.2); Troponin I 0.038 ng/ml (0-0.045)
[2020-08-16 17:04] LABS: Influenza A virus by PCR Negative (Negative); Influenza B virus by PCR Negative (Negative)
[2020-08-16 17:05] LABS: Hematocrit (blood only) 47.8 % (42-52); Hemoglobin 14.5 g/dL (14.0-18.0); Mean Corpuscular Hemoglobin 28.5 pg (25-34); Mean Corpuscular Hgb Conc 30.3 g/dL (32-36); Mean Corpuscular Volume 94.1 fL (80-100); Mean Platelet Volume 10.6 fL (7.4-10.4); Platelet Count 242 K/uL (130-400); RDW Coefficient of Variation 16.6 % (11.5-14.5); RDW Standard Deviation 57.6 fL (36.4-46.3); Red Blood Count 5.08 M/uL (4.7-6.1); White Blood Count 14.16 K/uL (4.8-10.8)
[2020-08-16] MEDS ORDERED: D5W AND 1/2NSS 1,000 ML IV SCH (17:15)
[2020-08-16 18:01] LABS: ALC (manual) 4.05 K/uL (1.2-3.4); ANC (manual) 7.83 K/uL (1.4-6.5); Lymphocytes # (manual) 4.05 K/uL (1.2-3.4); Lymphocytes % (manual) 28.6 %; Metamyelocytes # (manual) 0.38 K/uL (0-0); Metamyelocytes % (manual) 2.7 %; Monocytes # (manual) 1.39 K/uL (0.11-0.59); Monocytes % (manual) 9.8 %; Myelocytes # (manual) 0.51 K/uL (0-0); Myelocytes % (manual) 3.6 %; Neutrophils # (manual) 7.83 K/uL (1.4-6.5); Neutrophils % (manual) 55.3 %
--- NOTE | 2020-08-16 18:40 | History & Physical Report ---
Date of Service August 16, 2020 Assessment & Plan (1) Acute hypernatremia: 69 yo M with complicated medical history including schizophrenia, extended hospital stay for pneumonia resulting in trach dependence, COVID19 pneumonia, encephalopathy, seizure disorder, PEG dependence, admitted for increased thick respiratory secretions concerning for infection and hypernatremia. Hypernatremia - Patient has hx of similar derangements - Sodium 154 on admission - received 1L NS bolus in ER, followed by 1L D5W +1/2NS - switched to D5W at 100cc/hr on transfer - goal of no more than 10 meq decrease per day - BMP Q4H Present on Admission?: Yes (2) Tachycardia: possibly secondary to infection vs pain difficult to ascertain with nonverbal status consistently <110, no reports of AFib on tele or EKG. Present on Admission?: Yes (3) Leukocytosis: mild leukocytosis with WBC 14k CXR improved compared to previous; some interstitial thickening still present but no lobular opacities Afebrile intermittently tachypneic. Appears to be periodic breathing as children normally do. hx of ESBL klebsiella grown from sputum cultures -- started on IV levaquin daily in ER trach culture, blood culture pending procal 0.15 COVID negative Present on Admission?: Yes (4) Presence of externally removable percutaneous endoscopic gastrostomy (PEG) tube: continuing medications and feeds by PEG tube nutrition consult for tube feeds in setting of hypernatremia speech consult for assessment of swallowing status if cognition improves. Has not been seen since 12/2019 prior to peg placement Present on Admission?: Yes (5) Tracheostomy dependent: saturating well on 8L trach collar no exertion with breathing,intercostal retractions, belly breathing trach site chen snot have surrounding erythema but notable thick white sputum at opening Present on Admission?: Yes (6) Schizophrenia: Concomitant treatment with seizure disorder and encephalopathy Continue home keppra, valproic acid. haloperidol held; unsure if can be given by peg as opposed to PO pain control with fentanyl patch, IV tylenol. can add tramadol 50 Q4 if seems appropriate and can go via PEG. Present on Admission?: Yes (7) Aortic stenosis: Present on Admission?: Yes (8) Encephalopathy: as above Present on Admission?: Yes (9) Seizure disorder: as above Present on Admission?: Yes (10) Diabetes: Dm2, on 12 units lantus QAM and lispro sliding scale glycemic consult with pharmacy with patient on tube feeds and BSG 55 on admission due to low feeding at nursing facility DVT ppx: lovenox FEN/GI: NPO, Feeding tube, meds per PEG Code Status: Full Code [discussed with brother Octaviano] Dispo: Med/Surg w/ Tele, likely d/c to termite helper nursing facility, [facility] or otherwise History of Present Illness Chief Complaint: Altered mental state, increased secretions Primary Care Provider: Wen [facility] 69-year-old male with a history of hyponatremia, schizophrenia, aortic stenosis, encephalopathy, schizoaffective disorder this extended hospital stay secondary to pneumonia in December 2019 leading to tracheostomy and PEG placement brought to the ER today after being found to have increased respiratory secretions trach by nursing at [facility]. HPI mostly from communication with the ER provider as patient is nonverbal and does not respond to commands. Allergies Allergy/AdvReac Type Severity Reaction Status Date / Time No Known Allergies Allergy Verified 08/16/20 16:16 Home Medications Medication Instructions Recorded Confirmed Type aspirin 81 mg FEEDING TUBE DAILY #90 tab 01/25/20 08/16/20 Rx fentanyl 12 mcg TRANSDERMAL Q72H #10 patch 01/25/20 08/16/20 Rx Ferrous Sulfate Liquid 300 mg PEG BID 05/19/20 08/16/20 History Guaifenesin Belinda 200mg/10ml 10 ml G-TUBE BID 05/19/20 08/16/20 History Liquid Protein Supp 30 ml G-TUBE BID 05/19/20 08/16/20 History Valproic Acid Belinda 250mg/5ml 500 mg PEG BID 05/19/20 08/16/20 History acetaminophen [Tylenol] 650 mg FEEDING TUBE Q6 PRN 05/19/20 08/16/20 History ascorbic acid (vitamin C) [Vitamin 500 mg FEEDING TUBE QAM 05/19/20 08/16/20 History C] cholecalciferol (vitamin D3) 125 mcg FEEDING TUBE QAM 05/19/20 08/16/20 History [Vitamin D3] insulin lispro 1 sliding scale dose SUBCUT 05/19/20 08/16/20 History USEASDIRECTD tramadol 50 mg FEEDING TUBE Q4 PRN 05/19/20 08/16/20 History zinc 50 mg FEEDING TUBE BID 05/19/20 08/16/20 History Lantus Solostar U-100 Insulin 12 unit SUBCUT QAM 30 Days #3 ml 05/28/20 08/16/20 Rx esomeprazole magnesium 40 mg G-TUBE QAM 08/16/20 08/16/20 History haloperidol lactate 2 mg PO Q12H 08/16/20 08/16/20 History hydrocortisone [Anusol-HC] [address] BID PRN 08/16/20 08/16/20 History levetiracetam [Keppra] 750 mg FEEDING TUBE BID 08/16/20 08/16/20 History polyethylene glycol 3350 [Miralax] 17 g FEEDING TUBE QAM 08/16/20 08/16/20 History levofloxacin 500 mg PEG DAILY@1100 3 Days #1500 08/18/20 Rx ml Past Med/Surg History Medical History (Updated 08/19/20 @ 00:05 by Don Tomas) Alzheimer disease Chronic gout Chronic prescription opiate use Dementia Diabetes Gastrointestinal hemorrhage GERD (gastroesophageal reflux disease) Goals of care, counseling/discussion Hypertension Muscle weakness Peripheral vascular disease Pneumonia due to COVID-19 virus Schizoaffective disorder, chronic condition Seizure disorder Stroke Tachypnea Urinary tract infection Surgical History (Updated 05/20/20 @ 01:20 by Lavinia Menard DO) Status post insertion of percutaneous endoscopic gastrostomy (PEG) tube Tracheostomy in place Family History (Updated 05/20/20 @ 01:20 by Lavinia Menard DO) Other No significant family history Social History Smoking Status: Unknown if ever smoked Hx Alcohol Use: No Hx Substance Use: No Preferred Language: Albanian Communication Ability: Impaired Ict Sales Representative Required: No Beliefs That Will Affect Care: None marital status: Unknown Current Living Situation: Alf Feels Safe at Home: Yes Assistive Devices: Oxygen - Continuous Review of Systems Review of Systems: Unobtainable due to cognitive status Physical Exam Physical Exam: Const: laying in bed, not moving any limbs, staring ahead with fixed gaze Eyes: pupils small equal and reactive bilaterally, not tracking, not following commands, infrequently blinking HEENT: trach in place, loud breathing with thick whitish mucus at opening Card: tachycardic, loud 3/6 systolic murmur at apex, multiple pvc's, appears to be regular rhythm Pulm: difficult to identify breath sounds transmitted from upper airway/trach, periodic breathing GI: PEG tube in place with serous, yellow-green discharge between tubing and skin surface Skin: thin, discolored Neuro: unable to follow commands, does not track, does not speak Results & Data Results & Data ([facility]) Vital Signs (Past 12 Hours) Vital Signs Temp Pulse Resp BP Pulse Ox 08/16/20 17:30 99 H 39 H 99 08/16/20 17:00 102 H 29 H 95 08/16/20 16:30 114 H 32 H 95 08/16/20 16:01 121 H 22 118/98 08/16/20 16:00 88 31 H 93 08/16/20 15:54 108 H 37 H 95 08/16/20 15:37 36.7 C 115 H 16 110/80 95 08/16/20 15:36 116 H 33 H 110/80 94 Laboratory Results WBC 14.16 K/uL (4.8-10.8) H 08/16/20 16: RBC 5.08 M/uL (4.7-6.1) 08/16/20 16:27 Hgb 14.5 g/dL (14.0-18.0) 08/16/20 16: Hct 47.8 % (42-52) 08/16/20 16: MCV 94.1 fL (80-100) 08/16/20 16: MCH 28.5 pg (25-34) 08/16/20 16: MCHC 30.3 g/dL (32-36) L 08/16/20 16: RDW Std Deviation 57.6 fL (36.4-46.3) H 08/16/20 16: RDW Coeff of Kasey 16.6 % (11.5-14.5) H 08/16/20 16: Plt Count 242 K/uL (130-400) 08/16/20 16: MPV 10.6 fL (7.4-10.4) H 08/16/20 16:27 Neutrophils % (Manual) 55.3 % 08/16/20 16: Lymphocytes % (Manual) 28.6 % 08/16/20 16: Monocytes % (Manual) 9.8 % 08/16/20 16: Metamyelocytes % (Man) 2.7 % 08/16/20 16:27 Myelocytes % (Man) 3.6 % 08/16/20 16:27 Neutrophils # (Manual) 7.83 K/uL (1.4-6.5) H 08/16/20 16:27 Total Absolute Neuts 7.83 K/uL (1.4-6.5) H 08/16/20 16:27 Lymphocytes # (Manual) 4.05 K/uL (1.2-3.4) H 08/16/20 16:27 Total Abs Lymphocytes 4.05 K/uL (1.2-3.4) H 08/16/20 16:27 Monocytes # (Manual) 1.39 K/uL (0.11-0.59) H 08/16/20 16: Metamyelocytes # (Man) 0.38 K/uL (0-0) H 08/16/20 16: Myelocytes # (Manual) 0.51 K/uL (0-0) H 08/16/20 16: PT 10.7 Seconds (9.0-12.0) 08/16/20 19:32 INR 1.1 (0.9-1.1) 08/16/20 19:32 APTT 25.7 Seconds (21.0-31.0) 08/16/20 19:32 PTT Ratio 1.0 08/16/20 19:32 Sodium 152 mmol/L (136-145) H 08/16/20 16: Potassium 4.2 mmol/L (3.5-5.1) 08/16/20 16: Chloride 117 mmol/L (98-107) H 08/16/20 16: Carbon Dioxide 28 mmol/L (21-32) 08/16/20 16: Anion Gap 7.0 (3-11) 08/16/20 16: BUN 38 mg/dl (7-18) H 08/16/20 16: Creatinine 0.83 mg/dl (0.6-1.4) 08/16/20 16: Est Cr Clr Drug Dosing 82.0 ml/min 08/16/20 16: Est GFR ( Amer) 102.6 08/16/20 16: Est GFR (Non-Af Amer) 88.5 08/16/20 16:27 BUN/Creatinine Ratio 46.3 (10-20) H 08/16/20 16:27 Glucose 55 mg/dl (70-99) L 08/16/20 16:27 POC Glucose 82 mg/dl (70-99) 08/16/20 18:09 Lactate 1.8 mmol/L (0.4-2.0) 08/16/20 19:39 Calcium 9.5 mg/dl (8.5-10.1) 08/16/20 16:27 Magnesium 2.5 mg/dl (1.8-2.4) H 08/16/20 16:27 Total Bilirubin 0.3 mg/dl (0.2-1) 08/16/20 16:27 AST 23 U/L (15-37) 08/16/20 16:27 ALT 18 U/L (12-78) 08/16/20 16:27 Alkaline Phosphatase 82 U/L (45-117) 08/16/20 16:27 Troponin I 0.038 ng/ml (0-0.045) 08/16/20 16:27 Total Protein 6.7 gm/dl (6.4-8.2) 08/16/20 16:27 Albumin 2.0 gm/dl (3.4-5.0) L 08/16/20 16:27 Globulin 4.7 gm/dl (2.5-4.0) H 08/16/20 16:27 Albumin/Globulin Ratio 0.4 (0.9-2) L 08/16/20 16:27 Procalcitonin 0.15 ng/ml (0-0.5) 08/16/20 16:27 COVID-19 Eval Order Covid19 IDNow [facility] 08/16/20 18:27 Influ A Molecular Assay Negative (Negative) 08/16/20 16:28 Influ B Molecular Assay Negative (Negative) 08/16/20 16:28 SARS-CoV-2, RNA, NAAT NEGATIVE (NEGATIVE) 08/16/20 18:27 Diagnostic Findings XR chest 1V portable IMPRESSION: Interval improvement in the bilateral pulmonary airspace opacities with residual interstitial thickening. Supervising Physician Co-Signing Physician Notes I personally saw and examined the patient. I verified all jay points and agree with resident physician Dr Galilea Leonard with the following exceptions and/or additions: 69-year-old male well-known to the service admission from [facility] due to worsening mental status and increased secretions through his trach O/E patient appears chronically ill, not alert, unable to follow any commands, diaphoretic with changing respiratory pattern and occasional apnea episodes last only a few seconds, rhonchi bilaterally throughout without wheezing, abdomen soft, regular rhythm with increased rate, 5/6 systolic apical murmur A/P Increased tracheostomy secretions with possible pneumonia -leukocytosis on admission however procalcitonin negative. Given patient history with increased secretions a short course of Levaquin appears to be appropriate pending sputum cultures as he has grown ESBL in the past. However chest x-ray is nonconcerning. Consult pulmonology regarding tracheostomy management. Elevate head of bed > 30 degrees at all times to avoid aspirations. Hypernatremia -suspected dehydration and free water flushes need to be increased however will manage with D5W overnight. The patient remains for full resuscitation as per his brother is longstanding believe he would want everything done possible to keep him alive. Resident Activity Tracking Resident Involvement: Resident Care Provided Care Provided: Adult Hospital Medicine (1) Diabetes Diabetes mellitus complication status: without complication Diabetes mellitus termite helper insulin use: with nursing home use Diabetes mellitus type: type 2 Qualified Code(s): E11.9 - Type 2 diabetes mellitus without complications; Z79.4 - assisted (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 (2) Aortic stenosis Cardiac valve disease etiology: nonrheumatic Qualified Code(s): I35.0 - Nonrheumatic aortic (valve) stenosis (3) Leukocytosis Leukocytosis type: unspecified Qualified Code(s): D72.829 - Elevated white blood cell count, unspecified (4) Schizophrenia Schizophrenia type: unspecified Qualified Code(s): F20.9 - Schizophrenia, unspecified
[2020-08-16 20:11] LABS: INR 1.1 (0.9-1.1); Partial Thromboplastin Time 25.7 Seconds (21.0-31.0); Prothrombin Time 10.7 Seconds (9.0-12.0)
[2020-08-16] MEDS ORDERED: ACETAMINOPHEN 325 MG TAB PO PRN (20:48)
[2020-08-16] MEDS ORDERED: ONDANSETRON INJ 2 MG/ML 2 ML VIAL IV PRN (20:48)
[2020-08-16] MEDS ORDERED: HYDROCORTISONE HC 2.5% CRM 30GM TUBE EXT PRN (20:48)
[2020-08-16] MEDS ORDERED: ACETAMINOPHEN SUSP 325 MG/10.15 ML UDC PEG PRN (20:52)
[2020-08-16] MEDS ORDERED: PROTEIN PEG SCH (21:00)
[2020-08-16] MEDS ORDERED: levETIRAcetam ORAL SOLN 100MG/ML PO SCH (21:00)
[2020-08-16] MEDS ORDERED: GLUCAGON FOR INJ 1 MG VIAL IM PRN (21:15)
[2020-08-16] MEDS ORDERED: TPN/PPN CONSULT PHARMACY STA (21:15)
[2020-08-16] MEDS ORDERED: GLUCOSE 10 TABS/TUBE PO PRN (21:15)
[2020-08-16] MEDS ORDERED: DEXTROSE 50% 50 ML SYRINGE IV PRN (21:15)
[2020-08-16] MEDS ORDERED: CARBOHYDRATES FOR HYPOGLYCEMIA PO PRN (21:15)
[2020-08-16] MEDS ORDERED: GLUCOSE 40% GEL 15 GM TUBE PO PRN (21:15)
[2020-08-16] MEDS ORDERED: PHARMACY GLYCEMIC MGMT CONSULT PRN (21:28)
[2020-08-16] MEDS ORDERED: INFLUENZA VACCINE HIGH DOSE 65+ 0.7 ML SYR IM ONE (22:00)
[2020-08-16] MEDS ORDERED: PNEUMOCOCCAL Polysaccharide Vaccine 25mcg/0.5mL vial/Syr IM ONE (22:00)
[2020-08-16 22:06] LABS: BUN Creatinine Ratio 47.4 (10-20); Calcium 8.7 mg/dl (8.5-10.1); Creatinine Clr Calc Pharmacy 93.2 ml/min; Est GFR (African American) 108.2; Est GFR (Non-African American) 93.3
[2020-08-16] MEDS: ZINC SULFATE 220 MG CAPSULE PEG SCH (22:14)
[2020-08-16] MEDS: VALPROIC ACID SOLN 500 MG/10 ML UDC PEG SCH (22:14)
[2020-08-16] MEDS: DEXTROSE 5% 1,000 ML IV SCH (22:14)
[2020-08-16] MEDS: ENOXAPARIN INJ 40 MG/0.4 ML SYR SQ SCH (22:15)
[2020-08-16] MEDS: levETIRAcetam ORAL SOLN 100MG/ML PEG SCH (22:15)
[2020-08-16] MEDS: HALOPERIDOL 2 MG/1 ML UDP PO SCH (22:22)
[2020-08-16] MEDS: FERROUS SULFATE 325 MG/7.4 ML UDP PO SCH (22:22)
[2020-08-16 23:03] LABS: Appearance Urine Clear (Clear); Bacteria Urine Automated Negative (Negative); Bilirubin Urine Negative (Negative); Blood Urine Negative (Negative); Color Urine Yellow; Epithelial Cell Urine Auto >30 /lpf (0-5); Glucose Urine UA Negative (Negative); Ketones Urine Negative (Negative); Leukocyte Esterase Urine 1+ (Negative); Nitrite Urine Negative (Negative); RBC Urine Automated 0-4 /hpf (0-4); Specific Gravity Urine 1.021 (1.000-1.030); Urobilinogen Urine Negative (Negative); WBC Urine Automated >30 /hpf (0-5); pH Urine 7.5 (4.5-7.5)
[2020-08-16 23:05] LABS: Protein Urine Trace (Negative)
[2020-08-17] MEDS: CHECK fentaNYL PATCH PLACEMENT SCH ×3 (00:22→16:43)
[2020-08-17] MEDS: INSULIN ASPART 100 UNITS/ML 3 ML PEN SC SCH ×6 (00:22→20:00)
[2020-08-17 07:33] LABS: Hematocrit (blood only) 39.9 % (42-52); Hemoglobin 12.2 g/dL (14.0-18.0); Mean Corpuscular Hemoglobin 28.7 pg (25-34); Mean Corpuscular Hgb Conc 30.6 g/dL (32-36); Mean Corpuscular Volume 93.9 fL (80-100); Mean Platelet Volume 10.1 fL (7.4-10.4); Nucleated RBC # (auto) 0.05 K/uL (0-0); Nucleated RBC % (auto) 0.6 %; Platelet Count 192 K/uL (130-400); RDW Coefficient of Variation 16.7 % (11.5-14.5); RDW Standard Deviation 57.5 fL (36.4-46.3); Red Blood Count 4.25 M/uL (4.7-6.1); White Blood Count 9.79 K/uL (4.8-10.8)
[2020-08-17 07:55] LABS: BUN Creatinine Ratio 42.4 (10-20); Calcium 8.7 mg/dl (8.5-10.1); Creatinine Clr Calc Pharmacy 107.7 ml/min; Est GFR (African American) 115.7; Est GFR (Non-African American) 99.8; Potassium 3.8 mmol/L (3.5-5.1)
[2020-08-17 07:57] LABS: Basophils # (auto) 0.05 K/uL (0-0.2); Basophils % (auto) 0.5 %; Eosinophils # (auto) 0.04 K/uL (0-0.5); Eosinophils % (auto) 0.4 %; Immature Granulocytes # (auto) 0.78 K/uL (0.00-0.02); Lymphocytes # (auto) 1.81 K/uL (1.2-3.4); Lymphocytes % (auto) 18.5 %; Monocytes # (auto) 1.03 K/uL (0.11-0.59); Monocytes % (auto) 10.5 %; Neutrophils # (auto) 6.08 K/uL (1.4-6.5); Neutrophils % (auto) 62.1 %; Polychromasia 1+; Toxic Vacuolation 1+
--- NOTE | 2020-08-17 08:00 | Pulmonary Consultation ---
Date of Consultation August 17, 2020 Assessment & Plan (1) Respiratory distress: Patient is a 69 year old male with PMHx Schizoaffective disorder, HTN, DM2, s/p PEG,Tracheostomy dependancy, aortic stenosis, stroke with residual effects, who presented from [facility] due to worsening respiratory secretions and mucus plugging leading to hypoxia. Tracheostomy Dependancy -Patient currently with a Cuffless Trach collar on 6L O2 -Saturating well without distress -No erythema or drainage noted around or in the trach site -Continue with suctions PRN -Can consider mucomyst or mucinex for secretion thinning, though patient does not cough -Respiratory Therapy assisting with trach care -Will order for ABG this AM as patient may require ventilation Leukocytosis -WBC elevated 14.16 on admission, downtrend to 9.79 this AM -Low suspicion for pneumonia at this time, though sputum cultures collected in ED pending. -Continue with empiric Levaquin until cultures return. -Procal 0.15 -CXR showing improvement from previous PNA with residual interstitial thickening. Hypernatremia -Appears secondary to dehydration in nature -Management and fluid balance per primary team Please see attending attestation for any changes or further recommendations. (2) Tracheostomy dependent: Supervising Physician Co-Signing Physician Notes Dr. Barnett was the resident-physician during care of patient. I separately evaluated patient for jay portions of the history and the exam. I was present during the critical portion of medical decision making, and I discussed the case with the resident. I generally agree with the findings and plan except for any additions/exceptions noted. Patient with chronic respiratory failure requiring tracheostomy presenting to the hospital due to worsening hyponatremia and increasing tracheal secretions. Reasonable to continue 7 to 10 days of Levaquin. Previous sputum cultures reviewed which demonstrated Klebsiella with ESBL, micrococcus species and Sherry glabrata. He appears to have significant gurgling in his upper airway. I am recommending twice daily CoughAssist along with frequent tracheal suctioni ng. He does not appear to be acutely infected at this time, but tracheitis is difficult to rule out. He is saturating well on trach collar and 6 L of oxygen per minute. Recommend weaning oxygen to maintain saturations of 92 to 94%. At this time pulmonary will follow on an as-needed basis. Please call us with questions. Thank you for the consult. History of Present Illness Reason for Consultation: Trach management recs Attending Physician: Eric Price DO History of Present Illness Patient is a 69 year old male with PMHx Schizoaffective disorder, HTN, DM2, s/p PEG,Tracheostomy dependancy, aortic stenosis, stroke with residual effects, who presented from [facility] due to worsening respiratory secretions and mucus plugging leading to hypoxia. Consult was placed for management of patients tracheostomy. No meaningful history or current ROS obtainable from patient. He does not follow commands and is minimally responsive even to sternal rubbing, giving only an occasional grunt or groan. Remainder of history gathered from EMR. Patient with prior admissions this past May for COVID-19 and pneumonia. At [facility] on 08/11/20 patient was found to have worsening O2 saturations and increased heart rate, he was found to have large mucus plugging of his tracheostomy cannula and after suction improved. On 08/16/20 patient was again having further secretions which were now a more yellow/cloudy drainage and was found to have diminished lung sounds at the bases. It was recommended by staffing at that time for evaluation and treatment at [facility] by the residing PCP, however, the patients brother preferred that he present to the hospital for evaluation. In the ED he was found to be dehydrated and with his prior history of pneumonia given IV levaquin for empiric coverage. On admission patient's tracheostomy site had no erythema but a notable thick white sputum. Allergies Allergy/AdvReac Type Severity Reaction Status Date / Time No Known Allergies Allergy Verified 08/16/20 16:16 Home Medications Medication Instructions Recorded Confirmed Type aspirin 81 mg FEEDING TUBE DAILY #90 tab 01/25/20 08/16/20 Rx fentanyl 12 mcg TRANSDERMAL Q72H #10 patch 01/25/20 08/16/20 Rx Ferrous Sulfate Liquid 300 mg PEG BID 05/19/20 08/16/20 History Guaifenesin Belinda 200mg/10ml 10 ml G-TUBE BID 05/19/20 08/16/20 History Liquid Protein Supp 30 ml G-TUBE BID 05/19/20 08/16/20 History Valproic Acid Belinda 250mg/5ml 500 mg PEG BID 05/19/20 08/16/20 History acetaminophen [Tylenol] 650 mg FEEDING TUBE Q6 PRN 05/19/20 08/16/20 History ascorbic acid (vitamin C) [Vitamin 500 mg FEEDING TUBE QAM 05/19/20 08/16/20 History C] cholecalciferol (vitamin D3) 125 mcg FEEDING TUBE QAM 05/19/20 08/16/20 History [Vitamin D3] insulin lispro 1 sliding scale dose SUBCUT 05/19/20 08/16/20 History USEASDIRECTD tramadol 50 mg FEEDING TUBE Q4 PRN 05/19/20 08/16/20 History zinc 50 mg FEEDING TUBE BID 05/19/20 08/16/20 History Lantus Solostar U-100 Insulin 12 unit SUBCUT QAM 30 Days #3 ml 05/28/20 08/16/20 Rx esomeprazole magnesium 40 mg G-TUBE QAM 08/16/20 08/16/20 History haloperidol lactate 2 mg PO Q12H 08/16/20 08/16/20 History hydrocortisone [Anusol-HC] 1 applic SD BID PRN 08/16/20 08/16/20 History levetiracetam [Keppra] 750 mg FEEDING TUBE BID 08/16/20 08/16/20 History levofloxacin 750 mg FEEDING TUBE QAM 08/16/20 08/16/20 History polyethylene glycol 3350 [Miralax] 17 g FEEDING TUBE QAM 08/16/20 08/16/20 History Patient History Medical History (Updated 08/16/20 @ 20:54 by Galilea Leonard MD) Alzheimer disease Chronic gout Chronic prescription opiate use Dementia Diabetes Gastrointestinal hemorrhage GERD (gastroesophageal reflux disease) Goals of care, counseling/discussion Hypertension Muscle weakness Peripheral vascular disease Pneumonia due to COVID-19 virus Schizoaffective disorder, chronic condition Seizure disorder Stroke Tachypnea Urinary tract infection Surgical History (Updated 05/20/20 @ 01:20 by Lavinia Menard DO) Status post insertion of percutaneous endoscopic gastrostomy (PEG) tube Tracheostomy in place Family History (Updated 05/20/20 @ 01:20 by Lavinia Menard DO) Other No significant family history Social History Smoking Status: Unknown if ever smoked Hx Alcohol Use: No Hx Substance Use: No Preferred Language: Estonian Communication Ability: Impaired Communication Ability Comment: pt is nonverbal, does not speak bolivian Fitter Up Required: No Beliefs That Will Affect Care: None marital status: Unknown Current Living Situation: [facility] Other Information That Helps Us Care for You: No Feels Safe at Home: Yes Safety Concerns: Feels Safe At This Time Assistive Devices: Oxygen - Continuous Review of Systems Review of Systems: Unobtainable due to cognitive status Physical Exam Constitutional: + ill appearing and + disheveled; no acute distress Eyes: Difficult to assess patients pupils as his eyes remained rolled b ackwards even with retraction of the top and bottom eyelids. Neck: + tracheostomy present Tracheostomy site initially covered. Removed coverings, no erythema surrounding site, no discharge noted at this time. Respiratory: normal respiratory effort; no retractions, does not use accessory muscles, no cough, + not able to speak in complete sentence and no stridor Auscultation: lungs clear to auscultation bilaterally (from anterior lung honeycutt ) Cardiovascular: Rate/Rhythm: regular rate and regular rhythm Heart Sounds: + murmur (3/6 CATHY ) Gastrointestinal (Abdomen): Inspection/Auscultation: abdomen normal to inspection and normal bowel sounds; abdomen not distended PEG in place, no erythema around site Neurologic: PERRL, EOMI, accommodation nl, no face palsy, no dysarthria + obtunded; + not awake Psychiatric: A+Ox3, euthymic affect Orientation: + not alert, + not oriented x 3, + not oriented to person, + not oriented to place and + not oriented to time Genitourinary: Condom catheter in place Results & Data Results & Data ([facility]) Vital Signs (Past 12 Hours) Vital Signs Temp Pulse Pulse Resp BP Pulse Ox 08/17/20 03:11 36.7 C 87 22 107/68 100 08/17/20 01:08 20 08/17/20 01:07 97 H 08/16/20 23:34 36.8 C 97 H 20 106/70 98 08/16/20 21:14 37.0 C 101 H 25 H 117/79 Resident Activity Tracking Resident Involvement: Resident Care Provided Care Provided: Adult Hospital Medicine
[2020-08-17] MEDS: DEXTROSE 5% 1,000 ML IV SCH ×2 (08:19→15:11)
[2020-08-17] MEDS: ASPIRIN 81 MG CHEW GT SCH (08:23)
[2020-08-17] MEDS: FERROUS SULFATE 325 MG/7.4 ML UDP PO SCH ×2 (08:23→20:10)
[2020-08-17] MEDS: HALOPERIDOL 2 MG/1 ML UDP PO SCH ×2 (08:24→20:10)
[2020-08-17] MEDS: levETIRAcetam ORAL SOLN 100MG/ML PEG SCH ×2 (08:24→20:10)
[2020-08-17] MEDS: VALPROIC ACID SOLN 500 MG/10 ML UDC PEG SCH ×2 (08:24→20:11)
[2020-08-17] MEDS: LANSOPRAZOLE 30 MG SOLTAB PEG SCH (08:24)
[2020-08-17] MEDS: POLYETHYLENE (MIRALAX) 17 GM PACK PEG SCH (08:24)
[2020-08-17] MEDS: ZINC SULFATE 220 MG CAPSULE PEG SCH ×2 (08:25→20:10)
[2020-08-17 08:45] LABS: Estimated Average Glucose 157 mg/dl; Hemoglobin A1C 7.1 % (4.5-5.6)
[2020-08-17] MEDS ORDERED: INSULIN GLARGINE SOLOSTAR 100 UNITS/ML 3 ML PEN SQ SCH ×2 (09:00)
[2020-08-17 09:34] LABS: Base Excess ABG -0.4 mEq/L (-9-1.8); HCO3 ABG 24 mmol/L (19-24); Oxygen Saturation ABG 96.9 % (90-95); PCO2 ABG 38 mmHg (35-46); PO2 ABG 88 mmHg (80-95); pH ABG 7.41 (7.35-7.45)
[2020-08-17 09:35] LABS: Allen Test Pos (Pos)
[2020-08-17] MEDS ORDERED: guaiFENesin SUGAR FREE 200 MG/10 ML UDC PEG STA (10:09)
--- NOTE | 2020-08-17 10:13 | Hospitalist Progress Note ---
Date of Service August 17, 2020 Assessment & Plan (1) Acute hypernatremia: 69 yo M with complicated medical history including advanced dementia, tracheostomy and PEG tube dependent, admitted for increased, thick respiratory secretions. On admission, patient found to be hypernatremic - clinical volume status is dry - Hypovolemic Hypernatremia - Patient has hx of similar derangements - cognitive debilitation and institutionalization likely underlying etiology - Sodium 152 on admission. Level now within the range of normal at 144. - received 1L NS bolus in ER, followed by 1L D5W +1/2NS, followed by D5W. Fluids discontinued at this time. - will now hydrate with free water flushes through peg tube --> increase by 250- 500 cc from what he was receiving at [facility] - repeat BMP in AM. If sodium remains normal, patient may return to [facility] with plans to recheck BMP on Saturday, 08/19. (2) Tachycardia: - resolved with IV hydration - likely secondary to dehydration >> infection or pain - normal sinus rhythm on EKG (3) Leukocytosis: - resolved - mild leukocytosis with WBC 14k on admission, now at 9 - suspicion for infection remains low at this time. Patient afebrile, no longer tachy, normal O2 sat. procal not elevated. CXR showing improvement from last admission. UA negative for nitrites and bacteria. Urine Culture pending. 1 of 2 blood cultures did return + for gram + cocci in clusters. MRSA PCR negative. Suspect contaminant > MSSA. Sputum culture + for gram + cocci. Again suspect contaminant due to overall stable clinical picture. Continue to follow cultures. - Levaquin discontinued. Will continue to clinically monitor - if patient begins to show signs of worsening, can re-add Levaquin. - repeat CBC in am (4) Bacteremia: - as above (5) Presence of externally removable percutaneous endoscopic gastrostomy (PEG) tube: - medications and feeds by PEG tube - nutrition consult for tube feeds (6) Tracheostomy dependent: - currently saturating 98 on room air - pulmonology following, appreciate recs - respiratory therapy on board - Mucinex 400mg Q4h added for thick secretions. Mucomyst of little utility as patient does not have cough reflex. (7) Schizophrenia: - chronic, no acute changes (8) Aortic stenosis: - murmur present on exam - no acute management (9) Seizure disorder: - continue home keppra and valproate (10) Diabetes: - history of type 2 diabetes mellitus - home regimen consists of 12 units lantus QAM and lispro sliding scale - glycemic consult with pharmacy with patient on tube feeds - of note, patient is not on a statin or PETR/ARB - I suspect these medications were discontinued previously by PCP due to overall poor prognosis DVT ppx: lovenox FEN/GI: NPO, Feeding tube, meds per PEG Code Status: Full Code Dispo: Med/Surg w/ Tele; plan to return to [facility] upon discharge Admission and Anticipated Discharge Date Admission Date: August 16, 2020 Supervising Physician Co-Signing Physician Notes I personally examined the patient and verified all jay points of history and exam, discussed case, and agree with decision making with Dr Thurman no HPI or review of systems obtainable.. He briefly grunts a little not intelligibly lower in the room but otherwise noncommunicative. Vitals noted, in general he is resting in bed trach collar in place no distress. HEENT normocephalic atraumatic mucous membranes moist. Skin shows no rashes no pallor or icterus. Labs and diagnostics noted Hypernatremic dehydrationimproved with D5W. I suspect his insensible water losses was just exceeding the amount of water he was getting with his tube feeds. Agree with Dr. Thurman that at this point we can switch from IV fluids to increased enteral fluids. We will try to find what he was on fluid swift at [facility] and increased by about 250 to 500 mL on the dayand to continue to follow his electrolytes both here and as an outpatient fairly closely. Stable now in this regard. Question of pneumonia/sepsis/bacteremiahe does not clinically appear to have a pneumonia, I suspect the blood culture is a false positive, his white count came down likely from hydration, his pro-Rohit is low, we will continue to follow clinically but I would be comfortable with holding off on antibiotics for now. DVT prophylaxisLovenox Subjective No acute events since arrival - patient is minimally arousable. Review of Systems Review of Systems: Unobtainable due to cognitive status Physical Exam Constitutional: + altered mental status and + frail appearing; no acute distress ENMT: external ear and nose normal, oropharynx normal Neck: + tracheostomy present Respiratory: normal respiratory effort; no respiratory distress and no labored breathing Auscultation: no crackles, no rales, no wheezes, no pleural rub and no vesicular breath sounds (coarse ) Cardiovascular: Rate/Rhythm: regular rate and regular rhythm Heart Sounds: normal S1, normal S2 and + murmur (holosystolic ) Gastrointestinal (Abdomen): normal bowel sounds, soft, nontender, no hepatosplenomegaly PEG tube in place Skin: multiple ulcerations present on dependent areas of skin Results & Data Results & Data ([facility]) Vital Signs (Past 12 Hours) Vital Signs Temp Pulse Pulse Resp BP Pulse Ox 08/17/20 08:00 36.6 C 93 H 18 92/69 L 99 08/17/20 07:59 85 08/17/20 03:11 36.7 C 87 22 107/68 100 08/17/20 01:08 20 08/17/20 01:07 97 H 08/16/20 23:34 36.8 C 97 H 20 106/70 98 Resident Activity Tracking Resident Involvement: Resident Care Provided Care Provided: Adult Hospital Medicine (1) Diabetes Diabetes mellitus complication status: without complication Diabetes mellitus rehab spec insulin use: with rehab spec use Diabetes mellitus type: type 2 Qualified Code(s): E11.9 - Type 2 diabetes mellitus without complications; Z79.4 - lens inserter (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 (2) Aortic stenosis Cardiac valve disease etiology: nonrheumatic Qualified Code(s): I35.0 - Nonrheumatic aortic (valve) stenosis (3) Leukocytosis Leukocytosis type: unspecified Qualified Code(s): D72.829 - Elevated white blood cell count, unspecified (4) Schizophrenia Schizophrenia type: unspecified Qualified Code(s): F20.9 - Schizophrenia, unspecified
--- NOTE | 2020-08-17 10:36 | Billing Data ---
Date of Service August 17, 2020 Coding Level of Care Code 33843 Inpt Consult Level 4
--- NOTE | 2020-08-17 10:41 | Pharmacy Report ---
Pharmacy Glycemic Short Note 2 - Date of Service August 17, 2020 - Glycemic Short BSG Results (Last 24 hours): 08/16/20 08/16/20 08/16/20 16:27 17:12 18:09 Glucose 55 L POC Glucose 70 82 08/16/20 08/16/20 08/17/20 20:40 21:29 00:03 Glucose 130 H POC Glucose 126 H 211 H 08/17/20 08/17/20 08/17/20 04:00 06:58 07:58 Glucose 187 H POC Glucose 191 H 197 H OUTPATIENT ANTIDIABETIC REGIMEN: * Lantus 12 units SQ AM * Humalog SSI * HbA1c = 7.1% (08/17/20) RISK FACTORS FOR INSULIN RESISTANCE: * Infection: Levofloxacin 750 mg IV Q24H * Fluids: D5W at 100 mL/hr ASSESSMENT: * Patient is a 69 yo M admitted from longterm last evening secondary to increased secretions from tracheostomy site. Patient is well known to pharmacy glycemic services. He is NPO. He was hypernatremic upon admission so he currently has D5W running at 100 mL/hr. This will provide 30 grams of Dextrose every 6 hours. * BSGs last evening were 82-126-211 mg/dL. He received 12 units of Lantus and 6 units of Humalog prior to admission yesterday. * Once admitted, he received 3 units of correctional insulin when BSG was 211 mg/dL last evening. * BSGs this morning were 191-197 mg/dL. * Will start Novolog based on previous admission data and weight/stress of three. With every 6 hour accuchecks, patient should receive at least 4 units to cover the amount of dextrose being administered. * Discussed with RN. Will adjust Novolog orders if D5W rate is changed or tube feeds are started. * Plan to give an increased dose of Lantus this morning to help cover dextrose being administered. Believe low upon admission yesterday was likely due to tube feeds not running and receiving basal prior to admission. PLAN FOR INPATIENT GLYCEMIC CONTROL: * Basal insulin * Lantus 15 units SQ x 1 * Bolus insulin * NovoLog per scale ACHS or Q6hrs while NPO * Goal Range: Low 120 mg/dL - High 150 mg/dL * Correction Factor: 25 mg/dL/unit * Nutritional / Prandial insulin per carb ratio of 1 unit per 8 grams CHO consumed * * UPDATE: spoke with resident and D5W will be stopped and patient will be started on Peptamen 1.5. See Novolog order for amount of carbohydrates per 6 hours at various rates. Thank you for engaging the clinical pharmacy consult service in the care of this patient. We will continue to follow.
[2020-08-17] MEDS ORDERED: INSULIN GLARGINE SOLOSTAR 100 UNITS/ML 3 ML PEN SC STA (10:43)
[2020-08-17 13:49] LABS: BUN Creatinine Ratio 34.6 (10-20); Calcium 8.7 mg/dl (8.5-10.1); Creatinine Clr Calc Pharmacy 94.1 ml/min; Est GFR (African American) 109.4; Est GFR (Non-African American) 94.4
[2020-08-17] MEDS: guaiFENesin SUGAR FREE 200 MG/10 ML UDC PEG SCH ×3 (15:14→20:08)
[2020-08-17] MEDS ORDERED: PEPTAMEN 1.5 CAL 1,000 ML BAG PEG SCH (15:30)
[2020-08-17] MEDS ORDERED: levoFLOXacin/D5W 750 MG/150 ML BAG IV SCH (16:00)
--- NOTE | 2020-08-17 16:18 | Billing Data ---
Date of Service August 17, 2020 Coding Level of Care Code 59233 Subseq Hosp Care Lvl 3
[2020-08-17] MEDS: TUBE FEEDING WATER FLUSH PEG SCH ×2 (16:44→20:08)
[2020-08-17] MEDS: ENOXAPARIN INJ 40 MG/0.4 ML SYR SQ SCH (20:11)
[2020-08-17] MEDS ORDERED: INSULIN ASPART 100 UNITS/ML 3 ML PEN SC SCH (21:30)
[2020-08-18] MEDS: CHECK fentaNYL PATCH PLACEMENT SCH ×2 (00:44→08:48)
[2020-08-18] MEDS: INSULIN ASPART 100 UNITS/ML 3 ML PEN SC SCH ×4 (00:45→13:06)
[2020-08-18] MEDS: guaiFENesin SUGAR FREE 200 MG/10 ML UDC PEG SCH ×4 (00:46→13:31)
[2020-08-18] MEDS: TUBE FEEDING WATER FLUSH PEG SCH ×3 (00:46→08:48)
--- NOTE | 2020-08-18 05:40 | Electrocardiogram Report ---
Test Reason : Blood Pressure : / mmHG Vent. Rate : 112 BPM Atrial Rate : 112 BPM P-R Int : 138 ms QRS Dur : 074 ms QT Int : 340 ms P-R-T Axes : 033 -59 059 degrees QTc Int : 464 ms Poor data quality, interpretation may be adversely affected Sinus tachycardia with frequent Premature ventricular complexes Left axis deviation Inferior infarct (cited on or before 26-NOV-2018) Abnormal ECG When compared with ECG of 19-MAY-2020 19:36, No significant change was found Confirmed by Surjit Almanzar ([id number]) on 08/18/2020 5:40:48 AM Referred By: Wen Campbellramona Confirmed By:Surjit Almanzar
[2020-08-18 07:49] LABS: Hematocrit (blood only) 40.3 % (42-52); Hemoglobin 12.8 g/dL (14.0-18.0); Mean Corpuscular Hemoglobin 28.9 pg (25-34); Mean Corpuscular Hgb Conc 31.8 g/dL (32-36); Mean Platelet Volume 10.8 fL (7.4-10.4); Platelet Count 169 K/uL (130-400); RDW Coefficient of Variation 16.1 % (11.5-14.5); RDW Standard Deviation 53.3 fL (36.4-46.3); Red Blood Count 4.43 M/uL (4.7-6.1); White Blood Count 9.14 K/uL (4.8-10.8)
[2020-08-18] MEDS ORDERED: PROSOURCE NO CARB 30 ML/PKT PEG SCH (08:00)
[2020-08-18 08:04] LABS: BUN Creatinine Ratio 36.9 (10-20); Calcium 8.7 mg/dl (8.5-10.1); Creatinine Clr Calc Pharmacy 111.5 ml/min; Est GFR (African American) 118.9; Est GFR (Non-African American) 102.6; Potassium 4.3 mmol/L (3.5-5.1)
[2020-08-18] MEDS: levETIRAcetam ORAL SOLN 100MG/ML PEG SCH (08:45)
[2020-08-18] MEDS: LANSOPRAZOLE 30 MG SOLTAB PEG SCH (08:45)
[2020-08-18 08:46] LABS: Basophils # (auto) 0.02 K/uL (0-0.2); Basophils % (auto) 0.2 %; Eosinophils # (auto) 0.02 K/uL (0-0.5); Eosinophils % (auto) 0.2 %; Immature Granulocytes # (auto) 0.62 K/uL (0.00-0.02); Immature Granulocytes % (auto) 6.8 %; Monocytes # (auto) 0.81 K/uL (0.11-0.59); Monocytes % (auto) 8.9 %; Neutrophils # (auto) 5.57 K/uL (1.4-6.5); Neutrophils % (auto) 60.9 %; Polychromasia 1+
[2020-08-18] MEDS: ZINC SULFATE 220 MG CAPSULE PEG SCH (08:46)
[2020-08-18] MEDS: FERROUS SULFATE 325 MG/7.4 ML UDP PO SCH (08:46)
[2020-08-18] MEDS: ASPIRIN 81 MG CHEW GT SCH (08:46)
[2020-08-18] MEDS: HALOPERIDOL 2 MG/1 ML UDP PO SCH (08:46)
[2020-08-18] MEDS: VALPROIC ACID SOLN 500 MG/10 ML UDC PEG SCH (08:47)
[2020-08-18] MEDS: POLYETHYLENE (MIRALAX) 17 GM PACK PEG SCH (08:48)
[2020-08-18] MEDS ORDERED: INSULIN GLARGINE SOLOSTAR 100 UNITS/ML 3 ML PEN SC SCH (09:00)
--- NOTE | 2020-08-18 09:48 | Discharge Summary ---
Date of Service August 18, 2020 Admission HPI Per Admitting Provider 69-year-old male with a history of hyponatremia, schizophrenia, aortic stenosis, encephalopathy, schizoaffective disorder this extended hospital stay secondary to pneumonia in December 2019 leading to tracheostomy and PEG placement brought to the ER today after being found to have increased respiratory secretions trach by nursing at [facility]. HPI mostly from communication with the ER provider as patient is nonverbal and does not respond to commands. Admission Exam Per Admitting Provider Const: laying in bed, not moving any limbs, staring ahead with fixed gaze Eyes: pupils small equal and reactive bilaterally, not tracking, not following commands, infrequently blinking HEENT: trach in place, loud breathing with thick whitish mucus at opening Card: tachycardic, loud 3/6 systolic murmur at apex, multiple pvc's, appears to be regular rhythm Pulm: difficult to identify breath sounds transmitted from upper airway/trach, periodic breathing GI: PEG tube in place with serous, yellow-green discharge between tubing and skin surface Skin: thin, discolored Neuro: unable to follow commands, does not track, does not speak Principal Diagnosis Hypernatremia Discharge Exam Constitutional + altered mental status and + frail appearing; no acute distress ENMT external ear and nose normal, oropharynx normal Neck + tracheostomy present Respiratory normal respiratory effort; no respiratory distress and no labored breathing Auscultation: no crackles, no rales, no wheezes, no pleural rub and no vesicular breath sounds (coarse ) Cardiovascular Rate/Rhythm: regular rate and regular rhythm Heart Sounds: normal S1, normal S2 and + murmur (holosystolic ) Gastrointestinal (Abdomen) normal bowel sounds, soft, nontender, no hepatosplenomegaly Discharge Data Allergies Allergy/AdvReac Type Severity Reaction Status Date / Time No Known Allergies Allergy Verified 08/16/20 16:16 Consultations 08/16/20 17:22 ED Decision to Admit Stat 08/16/20 20:48 Consult Pulmonology Routine Hospital Course (1) Acute hypernatremia: 69 yo M with complicated medical history including advanced dementia, tracheostomy and PEG tube dependent, admitted for increased, thick respiratory secretions. On admission, patient found to be hypernatremic - Hypovolemic Hypernatremia - clinical volume status is dry on exam - Patient has hx of similar derangements - cognitive debilitation and institutionalization likely underlying etiology - Sodium 152 on admission. He received 1L NS bolus in ER, followed by 1L D5W +1/2NS, followed by D5W. Level normalized to 140 by the time of discharge. - Recommend patient's free water flushes through the PEG tube by 250-500 cc from his baseline to increase hydration - Recommend patient returns to [facility] with plans to recheck BMP on 08/19/20. (2) Tachycardia: - resolved with IV hydration - likely secondary to dehydration >> infection or pain - normal sinus rhythm on EKG (3) Leukocytosis: - resolved - mild leukocytosis with WBC 14k on admission, now at 9 - sputum culture obtained from trach collar grew MRSA and gram - rods. While the MRSA was felt to represent a contaminate (due to his persisting clinical stability without MRSA coverage), we will presume gram - rods are indicative of a pneumonia (in the setting of increased, thick secretions from the trach collar). Patient received two days of Levaquin while inpatient. - Recommend continuing Levaquin 500mg daily through his PEG tube for the next 3 days for a total of 5 day course. (4) Bacteremia: - 1 of 2 blood cultures drawn on admission grew gram + cocci. MRSA PCR was negative. Patient was febrile throughout hospital course and never clinically worsened. Procal was not elevated. suspect this represents a contaminate. (5) Presence of externally removable percutaneous endoscopic gastrostomy (PEG) tube: - continuing medications and feeds by PEG tube - nutrition consult for tube feeds in setting of hypernatremia (6) Tracheostomy dependent: - currently saturating 96 on room air - pulmonology was consulted and recommended Mucinex 400mg Q4h added for thick secretions. - Mucomyst of little utility as patient does not have cough reflex. (7) Schizophrenia: - chronic, no acute changes (8) Aortic stenosis: - chronic; no acute management - murmur present on exam (9) Seizure disorder: - continue home keppra and valproate (10) Diabetes: - history of type 2 diabetes mellitus - home regimen consists of 12 units lantus QAM and lispro sliding scale - glycemic consult with pharmacy with patient on tube feeds - of note, patient is not on a statin or PETR/ARB - I suspect these medications were discontinued previously by PCP due to overall poor prognosis Total Time Total Time Spent Total Time Spent (In Minutes): <30 Discharge Plan Discharge Items Patient Disposition: Trans Resident Long-Term Care Reason For Visit: HYPERNATREMIA Discharge Diagnosis: Dehydration Condition on Discharge: Fair Activity: Resume your previous activity Non-emergency contact: Primary Care Provider Call non-emergency contact if: your symptoms worsen Follow-up/Referrals: Wen Samuels [Primary Care Provider] - Diet: Other - See Diet Comment Diet Comment: PEG tube feeds Addtl Attending Provider Instructions: Hypernatremia - Sodium 152 on admission. Corrected with IV hydration to 140 by day of discharge. - suspect related to dehydration - recommend increasing free water flushes through PEG tube by 250-500 cc daily from what he was receiving prior to admission - patient may return to [facility] with plans to recheck BMP on Saturday, 08/19. Pneumonia - increased sputum production via tach collar present on admission - WBC 14k on admission, now at 9 - sputum culture grew MRSA and gram - rods. MRSA was presumed to be a contaminate due to patient's persistent clinical stability without MRSA coverage. - patient received two days worth of Levaquin while in patient. Recommend continued Levaquin 500mg, via peg tube, daily for the next 3 days for a total of 5 day course. Pending Studies at Discharge: No Stand-Alone Forms: My [facility] Skilled Items Patient informed of condition?: No DNR: No Discharge Level of Care: Skilled Communicable Disease: No Discharge Prognosis: Stable Lines: None Urinary Catheter: Yes Medications and DC Order Prescriptions: New levofloxacin 250 mg/10 mL Solution 500 mg PEG DAILY@1100 3 Days Qty: 1500 RF: 0 Continued aspirin 81 mg Tablet,Chewable 81 mg feeding tube DAILY Qty: 90 RF: 0 fentanyl 12 mcg/hr Patch 72 Hour 12 mcg transdermal Q72H Qty: 10 RF: 0 acetaminophen [Tylenol] 325 mg Tablet 650 mg feeding tube Q6 PRN (Reason: Fever Or Pain) RF: 0 tramadol 50 mg Tablet 50 mg feeding tube Q4 PRN (Reason: Pain) RF: 0 ascorbic acid (vitamin C) [Vitamin C] 500 mg Tablet 500 mg feeding tube QAM RF: 0 zinc 50 mg Tablet 50 mg feeding tube BID RF: 0 insulin lispro 100 unit/mL Solution 1 sliding scale dose SUBCUT USEASDIRECTD RF: 0 cholecalciferol (vitamin D3) [Vitamin D3] 125 mcg (5,000 unit) Tablet 125 mcg feeding tube QAM RF: 0 Ferrous Sulfate Liquid 300 mg PEG BID RF: 0 Guaifenesin Belinda 200mg/10ml 10 ml G-tube BID RF: 0 Liquid Protein Supp 30 ml G-tube BID RF: 0 Valproic Acid Belinda 250mg/5ml 500 mg PEG BID RF: 0 Lantus Solostar U-100 Insulin 100 unit/mL (3 mL) insulin pen 12 unit subcut QAM 30 Days Qty: 3 RF: 0 hydrocortisone [Anusol-HC] 2.5 % Cream With Perineal Applicator 1 applic KS BID PRN (Reason: Hemorrhoids) RF: 0 haloperidol lactate 2 mg/mL Concentrate 2 mg PO Q12H RF: 0 levetiracetam [Keppra] 100 mg/mL Solution 750 mg feeding tube BID RF: 0 esomeprazole magnesium [address] For Susp In Packet 40 mg G-tube QAM RF: 0 polyethylene glycol 3350 [Miralax] 17 gram powder in packet 17 g feeding tube QAM RF: 0 Discontinued levofloxacin 750 mg Tablet 750 mg feeding tube QAM RF: 0 Discharge Orders: Discharge Order (Routine); Ordered 08/18/20 Ordered By: Ceci Thurman Admission Data Admit Date/Time: 08/16/20 18:02 Attending Provider: Eric Price Admit Provider: Galilea Leonard Primary Care Provider: Wen Samuels Other Providers: Vinny Fenton ; Jaswant Quezada ; Abril, Other Interventions: Discharge Summary Assessment (RN) Last Done: 08/18/20 12:08 Supervising Physician Co-Signing Physician Notes I personally examined the patient and verified all jay points of history and exam, discussed case, and agree with decision making with Dr Thurman no HPI or review of systems obtainable. Vitals noted, in general he is resting in bed trach collar in place no distress. HEENT normocephalic atraumatic mucous membranes moist. Skin shows no rashes no pallor or icterus. Labs and diagnostics noted Hypernatremic dehydrationimproved with D5W. I suspect his insensible water losses was just exceeding the amount of water he was getting with his tube feeds. [facility] than he was gettingsuggested increasing his total daily intake by about 250 mL. More importantly he will need close follow-up with serial basic metabolic panels probably in the neighborhood of every other day for the short but foreseeable future to ensure ongoing stability Question of pneumonia/sepsis/bacteremiahe does not clinically appear to have a pneumonia, and his blood culture appears to be a false positive, but is very difficult to overlook the gram-negative rods in his sputum with increased sputum production. I highly doubt the MRSA is of clinical significanceas it would be more plausible than gram-negative rods to be upper respiratory harsh that is incorporated into his nasopharynx oropharynx or even skin around his tracheostomy, and he certainly does not appear as ill as one would expect with a MRSA pneumonia. Will treat for the gram-negative rods with Levaquin for a total of 5 days and follow cultures DVT prophylaxisLovenox utilized during his stay Stable for return to SNF, ongoing clinical follow-up, and basic metabolic panel approximately every other day. Resident Activity Tracking Resident Involvement: Resident Care Provided Care Provided: Adult Hospital Medicine
[2020-08-18] MEDS ORDERED: levoFLOXacin ORAL SOLN 25MG/ML BTL PEG SCH (11:00)
--- NOTE | 2020-08-18 16:44 | Billing Data ---
Date of Service August 18, 2020 Coding Level of Care Code D/C Day Management <30 mins
[2020-08-19] MEDS ORDERED: fentaNYL 12 MCG/HR TDSY TD SCH (09:00)
--- NOTE | 2020-08-19 13:49 | Billing Data ---
Date of Service August 16, 2020 Coding Level of Care Code 09435 Initial Inpt Care Lvl 3
--- NOTE | 2020-08-20 10:19 | Pharmacy Report ---
ED Pharmacist Culture FollowUP - Culture Follow Up Note Date of Service: August 20, 2020 Notes:: Positive sputum and urine culture results were communicated to the ED today, but this patient was admitted and then discharged on 08/18. Results may require intervention. Contacted [facility] Hospitalist service - Dr. Price aware and will manage as appropriate. No further intervention by ED required.
== END 2020-08-18 13:34 ==
LOC: ED 15:32 → SUATTDRO 18:02 → INTOOBSV 18:02 → 2W 18:02

== ENCOUNTER 2020-11-20 21:04 | Inpatient (IN) ==
[2020-11-20] MEDS ORDERED: SODIUM CHLORIDE 0.9% 1000ML 1,000 ML IV SCH (21:30)
[2020-11-20] MEDS ORDERED: VANCOMYCIN HCL 1,500 MG in SODIUM CHLORIDE 0.9% 500 ML IV ONE (21:32)
[2020-11-20] MEDS ORDERED: VANCOMYCIN CONSULT ACTIVE PRN (21:32)
[2020-11-20] MEDS ORDERED: PIPERACILL/TAZOBAC CONSULT ACTIVE PRN (21:32)
[2020-11-20] MEDS ORDERED: ACETAMINOPHEN 1000 MG/100 ML IV IV STA (21:32)
[2020-11-20] MEDS ORDERED: PIPERACILLIN/TAZOBACTAM 4.5 GM/120 ML BAG IV ONE (21:32)
[2020-11-20 21:34] LABS: Basophils # (auto) 0.01 K/uL (0-0.2); Basophils % (auto) 0.1 %; Hematocrit (blood only) 44.5 % (42-52); Hemoglobin 14.1 g/dL (14.0-18.0); Immature Granulocytes # (auto) 0.06 K/uL (0.00-0.02); Immature Granulocytes % (auto) 0.5 %; Lymphocytes # (auto) 0.64 K/uL (1.2-3.4); Lymphocytes % (auto) 5.1 %; Mean Corpuscular Hemoglobin 28.4 pg (25-34); Mean Corpuscular Hgb Conc 31.7 g/dL (32-36); Mean Corpuscular Volume 89.5 fL (80-100); Mean Platelet Volume 9.9 fL (7.4-10.4); Monocytes # (auto) 0.73 K/uL (0.11-0.59); Monocytes % (auto) 5.9 %; Neutrophils % (auto) 88.4 %; Platelet Count 190 K/uL (130-400); RDW Coefficient of Variation 16.4 % (11.5-14.5); RDW Standard Deviation 54.3 fL (36.4-46.3); Red Blood Count 4.97 M/uL (4.7-6.1); White Blood Count 12.44 K/uL (4.8-10.8)
[2020-11-20] MEDS ORDERED: ONDANSETRON INJ 2 MG/ML 2 ML VIAL IV STA (21:35)
[2020-11-20] MEDS ORDERED: SODIUM CHLORIDE 0.9% 1000ML 500 ML IV ONE (21:35)
[2020-11-20 21:59] LABS: Albumin Level 2.4 gm/dl (3.4-5.0); BUN Creatinine Ratio 38.6 (10-20); Calcium 9.8 mg/dl (8.5-10.1); Creatinine Clr Calc Pharmacy 76.9 ml/min; Est GFR (African American) 97.9 ml/min; Est GFR (Non-African American) 84.5 ml/min; Magnesium 2.4 mg/dl (1.8-2.4); Potassium 4.6 mmol/L (3.5-5.1)
[2020-11-20 22:10] LABS: Albumin Globulin Ratio 0.4 (0.9-2); Bilirubin,Total 0.7 mg/dl (0.2-1); Globulin 5.5 gm/dl (2.5-4.0); Thyroid Stimulating Hormone 1.5 uIu/ml (0.300-4.500); Total Protein 7.9 gm/dl (6.4-8.2); Troponin I 0.018 ng/ml (0-0.045)
[2020-11-20 23:06] LABS: Appearance Urine Clear (Clear); Bacteria Urine Automated Negative (Negative); Bilirubin Urine Negative (Negative); Blood Urine Trace (Negative); Color Urine Dark Yellow; Glucose Urine UA Negative (Negative); Ketones Urine Trace (Negative); Leukocyte Esterase Urine Negative (Negative); Nitrite Urine Negative (Negative); Protein Urine Trace (Negative); Specific Gravity Urine 1.031 (1.000-1.030); Urobilinogen Urine Negative (Negative)
--- NOTE | 2020-11-20 23:13 | Emergency Department Note ---
Impression & Plan Fever, AMS (altered mental status), Aspiration pneumonitis, Vomiting ED Provider Note INFORMANT: EMS ED PROVIDER(S): Chito Gonzalez MD CHIEF COMPLAINT: altered mental status PLAN: Disposition: Admitted Condition: Good Outpatient prescription management: none Referral: None MEDICAL DECISION MAKING: Patient is a 69-year-old male that is debilitated currently residing at [facility]. He presented because of decreased responsiveness and vomiting. The patient was febrile. IV was established. Patient had blood work obtained. He had a chest x-ray that revealed findings concerning for left lower lobe infiltrate. He was given IV Zosyn and vancomycin. He was hydrated with normal saline. Additional fluid was given. The patient had a negative head CT for acute pathology. Significant encephalomalacia noted. CT scan of the abdomen pelvis did not reveal any obstruction or acute pathology either. Patient's urinalysis was unremarkable. The patient's blood pressure fell slightly. Additional IV fluids were ordered. The patient required recollection of his labs and will need admission to the hospital. Consultation was made with Dr. Anuarg King of the [facility] service. Patient was evaluated in the ER for further management. Patient's serum lactate was then noted to be elevated. Fluids were ordered. Patient was evaluated by the team in the ER and admitted. Triage Nursing notes reviewed and agree them. Vital Signs: reviewed and remarkable for fever Differential diagnosis: Aspiration pneumonia, infection, hypoglycemia, electrolyte abnormalities, overdose, toxicologic, cardiac sources, intracerebral event, neurologic, trauma, as well as other pathologies. Diagnostics interpreted by me: ECG: twelve-lead ECG reveals sinus rhythm with PVCs at [address] elevation or depression. Normal axis. Cardiac Monitoring: Cardiac monitoring ordered by me: The patient was placed on continuous cardiac monitoring and observed. It revealed a normal sinus rhythm at 87 beats per minute without evidence of dysrhythmia. Imaging studies: Chest x-ray was concerning for left lower lobe infiltrate. Head CT: A noncontrast CT scan of the head was performed and was negative for tumor, fracture, intracranial hemorrhage, or other acute pathology. Encephalomalacia noted. CT scan of the abdomen pelvis showed multiple chronic findings. No acute process was noted per stat read. I refer you to the EMR for further details. HPI: The patient is a 69 year old male who presents to the Emergency Room with altered mental status. This started today and is persisting. Patient presents from [facility]. EMS noted that the patient had 2 episodes of vomiting today. He became less responsive and developed fever. He is receiving tube feeds via G-tube as well. The patient has a trach collar in place. He is disabled from a stroke. Baseline he is nonverbal per their report. Is limited secondary to the patient's mental status. ROS: See above HPI for pertinent positives & negatives. Limited secondary to mental status. PAST MEDICAL HISTORY:See Below , CVA PAST SURGICAL HISTORY:See Below, tracheostomy, G-tube FAMILY HISTORY:See Below SOCIAL HISTORY:See Below, resides at [facility] HOME MEDICATIONS:See Below ALLERGIES:See Below VITALS:See Below PHYSICAL EXAMINATION: GENERAL: Awake, mildly ill-appearing, in no distress HENT: Normocephalic, atraumatic. Oropharynx unremarkable. EYES: Normal conjunctiva. Sclera non-icteric. Opens eyes to voice. NECK: Inspection normal. Non-tender. Supple. No nuchal rigidity. Tracheostomy in place. RESPIRATORY: Coarse breath sounds bilaterally otherwise clear to auscultation. No wheezes. No rales. Mildly increased respiratory effort. CARDIAC: Normal rate. Normal rhythm. No murmurs. No rubs. Extremities warm and well perfused. Pulses equal. No JVD. GI: Soft, non-distended. G-tube in place. Mild upper apparent tenderness to palpation. No rebound or guarding. No masses. RECTAL: Deferred. MUSCULOSKELETAL: Atraumatic. Muscular atrophy present. LOWER EXTREMITIES: Calves are equal size bilaterally and non-tender. No edema. No discoloration. NEURO: Altered sensorium. Opening eyes to verbal command. Not following comm ands otherwise. Nonverbal. SKIN: No rash or jaundice noted. Chito Gonzalez MD Past Med/Surg History Medical History (Updated 11/20/20 @ 23:09 by Chito Gonzalez MD) Alzheimer disease Chronic gout Chronic prescription opiate use Dementia Diabetes Gastrointestinal hemorrhage GERD (gastroesophageal reflux disease) Goals of care, counseling/discussion Hypertension Muscle weakness Peripheral vascular disease Pneumonia due to COVID-19 virus Schizoaffective disorder, chronic condition Seizure disorder Stroke Tachypnea Urinary tract infection Surgical History (Updated 05/20/20 @ 01:20 by Lavinia Menard DO) Status post insertion of percutaneous endoscopic gastrostomy (PEG) tube Tracheostomy in place Family History (Updated 05/20/20 @ 01:20 by Lavinia Menard DO) Other No significant family history Social History Smoking Status: Unknown if ever smoked Hx Alcohol Use: No Hx Substance Use: No Preferred Language: Cypriot Communication Ability: Impaired Oyster Washer Required: No Beliefs That Will Affect Care: None marital status: Unknown Current Living Situation: Intermediate Feels Safe at Home: Yes Assistive Devices: Oxygen - Continuous Allergies Allergies Allergy/AdvReac Type Severity Reaction Status Date / Time No Known Allergies Allergy Verified 11/20/20 21:40 Home Meds Home Medications Medication Instructions Recorded Confirmed acetaminophen [Tylenol] 650 mg FEEDING TUBE Q6 PRN 05/19/20 11/20/20 ascorbic acid (vitamin C) [Vitamin 500 mg FEEDING TUBE QAM 05/19/20 11/20/20 C] cholecalciferol (vitamin D3) 125 mcg FEEDING TUBE QAM 05/19/20 11/20/20 [Vitamin D3] ferrous sulfate 300 mg FEEDING TUBE BID #0 05/19/20 11/20/20 guaifenesin 200 mg FEEDING TUBE BID #0 05/19/20 11/20/20 insulin lispro 1 sliding scale dose SUBCUT 05/19/20 11/20/20 USEASDIRECTD protein supplement 30 ea FEEDING TUBE BID #0 05/19/20 11/20/20 tramadol 50 mg FEEDING TUBE Q4 PRN 05/19/20 11/20/20 valproic acid (as sodium salt) 500 mg FEEDING TUBE BID #0 05/19/20 11/20/20 esomeprazole magnesium 40 mg G-TUBE QAM 08/16/20 11/20/20 haloperidol lactate 2 mg PO Q12H 08/16/20 11/20/20 levetiracetam [Keppra] 750 mg FEEDING TUBE BID 08/16/20 11/20/20 polyethylene glycol 3350 [Miralax] 17 g FEEDING TUBE QAM 08/16/20 11/20/20 Lantus Solostar U-100 Insulin 14 unit SUBCUT QAM 11/20/20 11/20/20 Previous Rx's Medication Instructions Recorded aspirin 81 mg FEEDING TUBE DAILY #90 tab 01/25/20 fentanyl 12 mcg TRANSDERMAL Q72H #10 patch 01/25/20 Results & Data (ED) Vital Signs Vital Signs - 24 hr 11/20/20 21:11 11/20/20 21:17 11/20/20 21:20 Temperature 38.2 C H Temperature Source Oral Pulse Rate 98 H 95 H 100 H Pulse Rate [Apical] Pulse Rate from SpO2 Sensor 242 H 87 99 H Pulse Rhythm Regular Pulse Strength Normal Respiratory Rate 39 H 38 H 37 H Respiratory Effort / Characteristics Non-Labored Respiratory Depth Normal Respiratory Pattern Regular Blood Pressure 117/83 Blood Pressure Mean 94 Blood Pressure Position Sitting Pulse Oximetry 100 100 98 Oxygen Delivery Method Aerosol Mask Oxygen Flow Rate 5 Fraction of Inspired Oxygen Sepsis Recent Fever Within 48 Hours Yes Sepsis New/Unexplained Change in Mental Status Yes Sepsis Action Taken by Nursing Physician Notified 11/20/20 21:30 11/20/20 21:31 11/20/20 21:53 Temperature Temperature Source Pulse Rate 96 H 96 H Pulse Rate [Apical] Pulse Rate from SpO2 Sensor 88 82 83 Pulse Rhythm Regular Pulse Strength Respiratory Rate 28 H 34 H Respiratory Effort / Characteristics Respiratory Depth Respiratory Pattern Blood Pressure 101/79 Blood Pressure Mean 86 Blood Pressure Position Pulse Oximetry 100 100 100 Oxygen Delivery Method Aerosol Mask Oxygen Flow Rate 5 Fraction of Inspired Oxygen Sepsis Recent Fever Within 48 Hours Sepsis New/Unexplained Change in Mental Status Sepsis Action Taken by Nursing 11/20/20 22:00 11/20/20 22:01 11/20/20 22:10 Temperature Temperature Source Pulse Rate 94 H 93 H 93 H Pulse Rate [Apical] Pulse Rate from SpO2 Sensor 80 79 93 H Pulse Rhythm Pulse Strength Respiratory Rate 30 H 31 H 32 H Respiratory Effort / Characteristics Respiratory Depth Respiratory Pattern Blood Pressure 109/79 Blood Pressure Mean 89 Blood Pressure Position Pulse Oximetry 100 100 100 Oxygen Delivery Method Oxygen Flow Rate Fraction of Inspired Oxygen Sepsis Recent Fever Within 48 Hours Sepsis New/Unexplained Change in Mental Status Sepsis Action Taken by Nursing 11/20/20 22:16 11/20/20 22:20 11/20/20 22:30 Temperature Temperature Source Pulse Rate 96 H 91 H Pulse Rate [Apical] 94 H Pulse Rate from SpO2 Sensor 81 80 Pulse Rhythm Pulse Strength Respiratory Rate 20 32 H 30 H Respiratory Effort / Characteristics Non-Labored Spontaneous Respiratory Depth Respiratory Pattern Blood Pressure Blood Pressure Mean Blood Pressure Position Pulse Oximetry 92 97 96 Oxygen Delivery Method Trach Collar Oxygen Flow Rate 5 Fraction of Inspired Oxygen 30 Sepsis Recent Fever Within 48 Hours Sepsis New/Unexplained Change in Mental Status Sepsis Action Taken by Nursing 11/20/20 22:34 11/20/20 22:40 11/20/20 22:50 Temperature Temperature Source Pulse Rate 90 91 H 88 Pulse Rate [Apical] Pulse Rate from SpO2 Sensor 69 73 69 Pulse Rhythm Pulse Strength Respiratory Rate 29 H 30 H 28 H Respiratory Effort / Characteristics Respiratory Depth Respiratory Pattern Blood Pressure 103/71 Blood Pressure Mean 81 Blood Pressure Position Pulse Oximetry 97 97 98 Oxygen Delivery Method Oxygen Flow Rate Fraction of Inspired Oxygen Sepsis Recent Fever Within 48 Hours Sepsis New/Unexplained Change in Mental Status Sepsis Action Taken by Nursing 11/20/20 23:30 11/20/20 23:31 11/21/20 00:00 Temperature Temperature Source Pulse Rate 81 83 87 Pulse Rate [Apical] Pulse Rate from SpO2 Sensor 83 Pulse Rhythm Pulse Strength Respiratory Rate 24 25 H 28 H Respiratory Effort / Characteristics Respiratory Depth Respiratory Pattern Blood Pressure 88/63 L 87/64 L Blood Pressure Mean 71 71 Blood Pressure Position Pulse Oximetry 98 91 98 Oxygen Delivery Method Oxygen Flow Rate Fraction of Inspired Oxygen Sepsis Recent Fever Within 48 Hours Sepsis New/Unexplained Change in Mental Status Sepsis Action Taken by Nursing Laboratory Data Result diagrams: 11/20/20 21:19 11/20/20 21:19 Lab Results 11/20/20 11/20/20 11/20/20 Range/Units 21:19 21:19 21:24 WBC 12.44 H (4.8-10.8) K/uL RBC 4.97 (4.7-6.1) M/uL Hgb 14.1 (14.0-18.0) g/dL Hct 44.5 (42-52) % MCV 89.5 (80-100) fL MCH 28.4 (25-34) pg MCHC 31.7 L (32-36) g/dL RDW Std Deviation 54.3 H (36.4-46.3) fL RDW Coeff of Kasey 16.4 H (11.5-14.5) % Plt Count 190 (130-400) K/uL MPV 9.9 (7.4-10.4) fL Immature Gran % (Auto) 0.5 % Neut % (Auto) 88.4 % Lymph % (Auto) 5.1 % Logan % (Auto) 5.9 % Eos % (Auto) 0.0 % Baso % (Auto) 0.1 % Neut # (Auto) 11.00 H (1.4-6.5) K/uL Lymph # (Auto) 0.64 L (1.2-3.4) K/uL Logan # (Auto) 0.73 H (0.11-0.59) K/uL Eos # (Auto) 0.00 (0-0.5) K/uL Baso # (Auto) 0.01 (0-0.2) K/uL Immature Gran # (Auto) 0.06 H (0.00-0.02) K/uL Sodium 137 (136-145) mmol/L Potassium 4.6 (3.5-5.1) mmol/L Chloride 101 (98-107) mmol/L Carbon Dioxide 31 (21-32) mmol/L Anion Gap 5.0 (3-11) BUN 35 H (7-18) mg/dl Creatinine 0.91 (0.6-1.4) mg/dl Est Cr Clr Drug Dosing 76.9 ml/min Est GFR ( Amer) 97.9 ml/min Est GFR (Non-Af Amer) 84.5 ml/min BUN/Creatinine Ratio 38.6 H (10-20) Glucose 210 H (70-99) mg/dl POC Glucose 214 H (70-99) mg/dl Lactate (0.4-2.0) mmol/L Calcium 9.8 (8.5-10.1) mg/dl Magnesium 2.4 (1.8-2.4) mg/dl Total Bilirubin 0.7 (0.2-1) mg/dl AST 14 L (15-37) U/L ALT 16 (12-78) U/L Alkaline Phosphatase 80 (45-117) U/L Ammonia (11-32) umol/L Total Creatine Kinase 36 L (39-308) U/L Troponin I 0.018 (0-0.045) ng/ml Total Protein 7.9 (6.4-8.2) gm/dl Albumin 2.4 L (3.4-5.0) gm/dl Globulin 5.5 H (2.5-4.0) gm/dl Albumin/Globulin Ratio 0.4 L (0.9-2) TSH 1.500 (0.300-4.500) uIu/ml Urine Color Urine Appearance (Clear) Urine pH (4.5-7.5) Ur Specific Olivia (1.000-1.030) Urine Protein (Negative) Urine Glucose (UA) (Negative) Urine Ketones (Negative) Urine Blood (Negative) Urine Nitrite (Negative) Urine Bilirubin (Negative) Urine Urobilinogen (Negative) Ur Leukocyte Esterase (Negative) Urine WBC (Auto) (0-5) /hpf Urine RBC (Auto) (0-4) /hpf U Hyaline Cast (Auto) (0-5) /lpf U Epithel Cells (Auto) (0-5) /lpf Urine Bacteria (Auto) (Negative) COVID-19 Eval Order SARS-CoV-2 (PCR) (Negative) 11/20/20 11/20/20 11/20/20 Range/Units 21:36 21:36 22:08 WBC (4.8-10.8) K/uL RBC (4.7-6.1) M/uL Hgb (14.0-18.0) g/dL Hct (42-52) % MCV (80-100) fL MCH (25-34) pg MCHC (32-36) g/dL RDW Std Deviation (36.4-46.3) fL RDW Coeff of Kasey (11.5-14.5) % Plt Count (130-400) K/uL MPV (7.4-10.4) fL Immature Gran % (Auto) % Neut % (Auto) % Lymph % (Auto) % Logan % (Auto) % Eos % (Auto) % Baso % (Auto) % Neut # (Auto) (1.4-6.5) K/uL Lymph # (Auto) (1.2-3.4) K/uL Logan # (Auto) (0.11-0.59) K/uL Eos # (Auto) (0-0.5) K/uL Baso # (Auto) (0-0.2) K/uL Immature Gran # (Auto) (0.00-0.02) K/uL Sodium (136-145) mmol/L Potassium (3.5-5.1) mmol/L Chloride (98-107) mmol/L Carbon Dioxide (21-32) mmol/L Anion Gap (3-11) BUN (7-18) mg/dl Creatinine (0.6-1.4) mg/dl Est Cr Clr Drug Dosing ml/min Est GFR ( Amer) ml/min Est GFR (Non-Af Amer) ml/min BUN/Creatinine Ratio (10-20) Glucose (70-99) mg/dl POC Glucose (70-99) mg/dl Lactate (0.4-2.0) mmol/L Calcium (8.5-10.1) mg/dl Magnesium (1.8-2.4) mg/dl Total Bilirubin (0.2-1) mg/dl AST (15-37) U/L ALT (12-78) U/L Alkaline Phosphatase (45-117) U/L Ammonia (11-32) umol/L Total Creatine Kinase (39-308) U/L Troponin I (0-0.045) ng/ml Total Protein (6.4-8.2) gm/dl Albumin (3.4-5.0) gm/dl Globulin (2.5-4.0) gm/dl Albumin/Globulin Ratio (0.9-2) TSH (0.300-4.500) uIu/ml Urine Color Dark Yellow Urine Appearance Clear (Clear) Urine pH 5.0 (4.5-7.5) Ur Specific Olivia 1.031 H (1.000-1.030) Urine Protein Trace H (Negative) Urine Glucose (UA) Negative (Negative) Urine Ketones Trace H (Negative) Urine Blood Trace H (Negative) Urine Nitrite Negative (Negative) Urine Bilirubin Negative (Negative) Urine Urobilinogen Negative (Negative) Ur Leukocyte Esterase Negative (Negative) Urine WBC (Auto) 5-10 H (0-5) /hpf Urine RBC (Auto) 5-10 H (0-4) /hpf U Hyaline Cast (Auto) 1-5 (0-5) /lpf U Epithel Cells (Auto) 10-20 H (0-5) /lpf Urine Bacteria (Auto) Negative (Negative) COVID-19 Eval Order Covid19 at [facility] SARS-CoV-2 (PCR) NEGATIVE (Negative) 11/20/20 11/20/20 Range/Units 23:13 23:13 WBC (4.8-10.8) K/uL RBC (4.7-6.1) M/uL Hgb (14.0-18.0) g/dL Hct (42-52) % MCV (80-100) fL MCH (25-34) pg MCHC (32-36) g/dL RDW Std Deviation (36.4-46.3) fL RDW Coeff of Kasey (11.5-14.5) % Plt Count (130-400) K/uL MPV (7.4-10.4) fL Immature Gran % (Auto) % Neut % (Auto) % Lymph % (Auto) % Logan % (Auto) % Eos % (Auto) % Baso % (Auto) % Neut # (Auto) (1.4-6.5) K/uL Lymph # (Auto) (1.2-3.4) K/uL Logan # (Auto) (0.11-0.59) K/uL Eos # (Auto) (0-0.5) K/uL Baso # (Auto) (0-0.2) K/uL Immature Gran # (Auto) (0.00-0.02) K/uL Sodium (136-145) mmol/L Potassium (3.5-5.1) mmol/L Chloride (98-107) mmol/L Carbon Dioxide (21-32) mmol/L Anion Gap (3-11) BUN (7-18) mg/dl Creatinine (0.6-1.4) mg/dl Est Cr Clr Drug Dosing ml/min Est GFR ( Amer) ml/min Est GFR (Non-Af Amer) ml/min BUN/Creatinine Ratio (10-20) Glucose (70-99) mg/dl POC Glucose (70-99) mg/dl Lactate 2.5 H* (0.4-2.0) mmol/L Calcium (8.5-10.1) mg/dl Magnesium (1.8-2.4) mg/dl Total Bilirubin (0.2-1) mg/dl AST (15-37) U/L ALT (12-78) U/L Alkaline Phosphatase (45-117) U/L Ammonia 22.1 (11-32) umol/L Total Creatine Kinase (39-308) U/L Troponin I (0-0.045) ng/ml Total Protein (6.4-8.2) gm/dl Albumin (3.4-5.0) gm/dl Globulin (2.5-4.0) gm/dl Albumin/Globulin Ratio (0.9-2) TSH (0.300-4.500) uIu/ml Urine Color Urine Appearance (Clear) Urine pH (4.5-7.5) Ur Specific Olivia (1.000-1.030) Urine Protein (Negative) Urine Glucose (UA) (Negative) Urine Ketones (Negative) Urine Blood (Negative) Urine Nitrite (Negative) Urine Bilirubin (Negative) Urine Urobilinogen (Negative) Ur Leukocyte Esterase (Negative) Urine WBC (Auto) (0-5) /hpf Urine RBC (Auto) (0-4) /hpf U Hyaline Cast (Auto) (0-5) /lpf U Epithel Cells (Auto) (0-5) /lpf Urine Bacteria (Auto) (Negative) COVID-19 Eval Order SARS-CoV-2 (PCR) (Negative) Administered Medications Sodium Chloride (Nss 1000ml) 1,000 mls @ 125 mls/hr IV .Q8H OFE Stop: 11/21/20 05:29 Last Admin: 11/20/20 23:37 Dose: 125 mls/hr Documented by: [id number] Discontinued Medications Acetaminophen (Acetaminophen 1000 Mg/100 Ml Iv) 1,000 mg IV NOW STA Stop: 11/20/20 21:33 Last Admin: 11/20/20 21:53 Dose: 1,000 mg Documented by: [id number] Piperacillin Sod/Tazobactam Sod (Zosyn) 4.5 gm in 120 mls @ 240 mls/hr IV NOW ONE Stop: 11/20/20 22:01 Last Infusion: 11/20/20 23:24 Dose: 0 mls/hr Documented by: [id number] Admin: 11/20/20 22:20 Dose: 240 mls/hr Documented by: [id number] Vancomycin HCl 1,500 mg/ (Sodium Chloride) 530 mls @ 200 mls/hr IV NOW ONE Stop: 11/21/20 00:10 Last Admin: 11/20/20 23:27 Dose: 200 mls/hr Documented by: [id number] Sodium Chloride (Nss 1000ml) 500 mls @ 999 mls/hr IV .Q31M ONE Stop: 11/20/20 22:05 Last Admin: 11/20/20 23:27 Dose: 999 mls/hr Documented by: [id number] Ondansetron HCl (Ondansetron Inj 2 Mg/Ml 2 Ml Vial) 4 mg IV NOW STA Stop: 11/20/20 21:36 Last Admin: 11/20/20 21:53 Dose: 4 mg Documented by: [id number] Discharge Plan Visit Data Chief Complaint: Illness Stated Complaint: ALTERED LEVEL OF CONSCIUOSNESS ED Provider: Chito Gonzalez Discharge Problem: Fever, AMS (altered mental status), Aspiration pneumonitis, Vomiting Forms Stand Alone Forms: [facility] [employer] Prescriptions Prescriptions: No Action aspirin 81 mg Tablet,Chewable 81 mg feeding tube DAILY Qty: 90 RF: 0 fentanyl 12 mcg/hr Patch 72 Hour 12 mcg transdermal Q72H Qty: 10 RF: 0 acetaminophen [Tylenol] 325 mg Tablet 650 mg feeding tube Q6 PRN (Reason: Fever Or Pain) RF: 0 tramadol 50 mg Tablet 50 mg feeding tube Q4 PRN (Reason: Pain) RF: 0 guaifenesin 100 mg/5 mL Liquid 200 mg feeding tube BID Qty: 0 RF: 0 ascorbic acid (vitamin C) [Vitamin C] 500 mg Tablet 500 mg feeding tube QAM RF: 0 ferrous sulfate 300 mg (60 mg iron)/5 mL Liquid 300 mg feeding tube BID Qty: 0 RF: 0 insulin lispro 100 unit/mL Solution 1 sliding scale dose SUBCUT USEASDIRECTD RF: 0 protein supplement Liquid 30 ea feeding tube BID Qty: 0 RF: 0 cholecalciferol (vitamin D3) [Vitamin D3] 125 mcg (5,000 unit) Tablet 125 mcg feeding tube QAM RF: 0 valproic acid (as sodium salt) 500 mg/10 mL (10 mL) Solution 500 mg feeding tube BID Qty: 0 RF: 0 haloperidol lactate 2 mg/mL Concentrate 2 mg PO Q12H RF: 0 levetiracetam [Keppra] 100 mg/mL Solution 750 mg feeding tube BID RF: 0 esomeprazole magnesium [address] For Susp In Packet 40 mg G-tube QAM RF: 0 polyethylene glycol 3350 [Miralax] 17 gram powder in packet 17 g feeding tube QAM RF: 0 Lantus Solostar U-100 Insulin 100 unit/mL (3 mL) insulin pen 14 unit subcut QAM RF: 0
[2020-11-20] MEDS ORDERED: SODIUM CHLORIDE 0.9% 1000ML 1,000 ML IV ONE (23:45)
--- NOTE | 2020-11-21 00:20 | History & Physical Report ---
Date of Service November 21, 2020 Assessment & Plan (1) Aspiration pneumonitis: Patient is a medically complex 69 year old male with PMHx L BERRY stroke, s/p PEG, s/p trach collar, schizophrenia, alzheimer's dementia, schizoaffective disorder, HLD, GERD, chronic gout, and hypertension,presenting from [facility] due to concerns of lessened responsiveness, emesis x2, fever of 101 with concerns for aspiration pneumonia secondary to aspiration of his emesis earlier on day of admission. Sepsis secondary to Aspiration Pneumonia -Patient febrile, tachycardic, white count 12k, Lactic 2.5 with hypotension 87/64 -Patient with chronic Trach collar which is uncuffed with emesis x2 earlier in the day -Aspiration suspected at this time, though opacities on the L of CXR are surprising since typically they would be seen on the R for aspiration. Patient also tends to lean to the R. -CT head, Abdomen, and pelvis stat reads without acute findings at this time. -Fluid resuscitated in ED with NSS and LR in addition to 50mg Albumin -Started on Vanc and Zosyn in the ED, will continue -Patient has grown MRSA and Pseudomonas on previous sputum cultures -Blood cultures pending -Tylenol 1000mg TID PRN fevers -Respiratory therapy assisting with trach collar management, titrate O2 to >90% PRN, Suction PRN -Will hold on any further tube feeds at this time -LR 100ml/hr for maintenance -Rod catheter to monitor adequate urine output DM2 -Continue home Lantus 14 units qAM -If sugars become uncontrolled consider adding SSI Schizophrenia, Schizoaffective disorder, Hx CVA -Continue home Valproic Acid, Keppra, Haldol Chronic Pain -Continue Fentanyl patch 12mcg -If patient's mentation worsens, consider removal of patch Dispo: PCU for continuous monitoring in the setting of sepsis and aspiration pneumonia. FEN: NPO, LR 100 ml/hr x2L DVT: Lovenox daily Code: Full History of Present Illness Chief Complaint: AMS, fever Primary Care Provider: [facility] Patient is a medically complex 69 year old male with PMHx L BERRY stroke, s/p PEG, s/p trach collar, schizophrenia, alzheimer's dementia, schizoaffective disorder, HLD, GERD, chronic gout, and hypertension,presenting from [facility] due to concerns of lessened responsiveness, emesis x2, fever of 101. Of note patient does receive continuous tube feds via his PEG and there were concerns that he may have aspirated, leading to the current events. Patient is minimally responsive at baseline and will occasionally open his eyes to his name and occasionally move his legs or clench his fists. He does note appear to follow any commands and is unable to answer any questions or provide any true ROS. Collateral information was gathered via chart review and discussion with the ED provider and nurse. Patient was noted to have 2 episodes of vomiting earlier today and shortly after was found to be less responsive and had developed a fever. He has been receiving continuous tube feeds via a G tube and there were concerns for aspiration at [facility]. Discussion was held with the family in regards to pausing the feeds to prevent further aspiration at this time to which they felt the patient should be evaluated in the hospital. In the ED patient was found to be febrile at 38.2C and given tylenol. He was also started on IV Zosyn and vancomycin and started fluid resucitation with NSS. Head CT and CT abdomen pelvis were negative for acute pathology. Chest XR showed some increased L sided opacities. On my evaluation patient is again minimally responsive and will occasionally open his eyes to his name, but cannot seem to follow any instructions nor note if he is having discomfort currently. Med Hx: L BERRY stroke, s/p PEG, s/p trach collar, schizophrenia, alzheimer's dementia, schizoaffective disorder, HLD, GERD, chronic gout, and hypertension Surg Hx: Trach collar, PEG Allergies Allergy/AdvReac Type Severity Reaction Status Date / Time No Known Allergies Allergy Verified 11/20/20 21:40 Home Medications Medication Instructions Recorded Confirmed Type aspirin 81 mg FEEDING TUBE DAILY #90 tab 01/25/20 11/20/20 Rx fentanyl 12 mcg TRANSDERMAL Q72H #10 patch 01/25/20 11/20/20 Rx acetaminophen [Tylenol] 650 mg FEEDING TUBE Q6 PRN 05/19/20 11/20/20 History ascorbic acid (vitamin C) [Vitamin 500 mg FEEDING TUBE QAM 05/19/20 11/20/20 History C] cholecalciferol (vitamin D3) 125 mcg FEEDING TUBE QAM 05/19/20 11/20/20 History [Vitamin D3] ferrous sulfate 300 mg FEEDING TUBE BID #0 05/19/20 11/20/20 History guaifenesin 200 mg FEEDING TUBE BID #0 05/19/20 11/20/20 History insulin lispro 1 sliding scale dose SUBCUT 05/19/20 11/20/20 History USEASDIRECTD protein supplement 30 ea FEEDING TUBE BID #0 05/19/20 11/20/20 History tramadol 50 mg FEEDING TUBE Q4 PRN 05/19/20 11/20/20 History valproic acid (as sodium salt) 500 mg FEEDING TUBE BID #0 05/19/20 11/20/20 History esomeprazole magnesium 40 mg G-TUBE QAM 08/16/20 11/20/20 History haloperidol lactate 2 mg PO Q12H 08/16/20 11/20/20 History levetiracetam [Keppra] 750 mg FEEDING TUBE BID 08/16/20 11/20/20 History polyethylene glycol 3350 [Miralax] 17 g FEEDING TUBE QAM 08/16/20 11/20/20 History Lantus Solostar U-100 Insulin 14 unit SUBCUT QAM 11/20/20 11/20/20 History Past Med/Surg History Medical History Alzheimer disease Chronic gout Chronic prescription opiate use Dementia Diabetes Gastrointestinal hemorrhage GERD (gastroesophageal reflux disease) Goals of care, counseling/discussion Hypertension Muscle weakness Peripheral vascular disease Pneumonia due to COVID-19 virus Schizoaffective disorder, chronic condition Seizure disorder Stroke Tachypnea Urinary tract infection Surgical History Status post insertion of percutaneous endoscopic gastrostomy (PEG) tube Tracheostomy in place Family History Other No significant family history Social History Smoking Status: Unknown if ever smoked Do You Dip or Chew Tobacco: No; Tobacco Cessation Education Requested by Patient: No Hx Alcohol Use: No Hx Substance Use: No Communication Ability: Unable [employer] B [employer] Required: No Beliefs That Will Affect Care: None marital status: Unknown Current Living Situation: [facility] Other Information That Helps Us Care for You: No Feels Safe at Home: Yes Assistive Devices: Oxygen - Continuous Review of Systems Review of Systems: Unobtainable due to cognitive status Physical Exam Constitutional: + ill appearing and + disheveled; no acute distress Eyes: PERRL Neck: + tracheostomy present Tracheostomy site initially covered. Removed coverings, no erythema surrounding site, no discharge noted at this time. Respiratory: normal respiratory effort; no retractions, does not use accessory muscles, no cough, + not able to speak in complete sentence and no stridor Auscultation: + rales (Course in all lung honeycutt, worse on the L side ) Cardiovascular: Rate/Rhythm: regular rate and regular rhythm Heart Sounds: + murmur (3/6 CATHY ) Gastrointestinal (Abdomen): Inspection/Auscultation: abdomen normal to inspection and normal bowel sounds; abdomen not distended PEG in place, some increased redness noted of the 6 o'clock to 8 o'clock position, but without drainage or breakdown Neurologic: PERRL, EOMI, accommodation nl, no face palsy, no dysarthria Cranial Nerves: PERRL Psychiatric: A+Ox3, euthymic affect Orientation: + not alert, + not orie nted x 3, + not oriented to person, + not oriented to place and + not oriented to time Genitourinary: Rod catheter in place Results & Data Results & Data ([facility]) Vital Signs (Past 12 Hours) Vital Signs Temp Pulse Pulse Resp BP Pulse Ox 11/21/20 00:00 87 28 H 87/64 L 98 11/20/20 23:31 83 25 H 91 11/20/20 23:30 81 24 88/63 L 98 11/20/20 22:50 88 28 H 98 11/20/20 22:40 91 H 30 H 97 11/20/20 22:34 90 29 H 103/71 97 11/20/20 22:30 91 H 30 H 96 11/20/20 22:20 96 H 32 H 97 11/20/20 22:16 94 H 20 92 11/20/20 22:10 93 H 32 H 100 11/20/20 22:01 93 H 31 H 100 11/20/20 22:00 94 H 30 H 109/79 100 11/20/20 21:53 100 11/20/20 21:31 96 H 34 H 100 11/20/20 21:30 96 H 28 H 101/79 100 11/20/20 21:20 100 H 37 H 98 11/20/20 21:17 95 H 38 H 100 11/20/20 21:11 38.2 C H 98 H 39 H 117/83 100 Supervising Physician Co-Signing Physician Notes Attending addendum: I have physically seen this patient, have supervised the medical residents activities, and agree with the H&P unless as otherwise noted. Assessment and Plan: Sepsis /aspiration pneumonia/left lower lobe infiltrate- Vancomycin IV, tobramycin IV and Flagyl IV for history of Zosyn resistant Pseudomonas Duonebs every 4 hours while awake and every 2 hours when necessary. Follow sputum culture and blood culture Routine trach care Diabetes mellitus- Continue Lantus 14 units subcu every morning Placed on Accu-Cheks before meals and at bedtime/every 6 hours with NovoLog coverage per scale Schizophrenia/schizoaffective disorder- Continue valproic acid, Keppra and Haldol Chronic pain- Continue fentanyl patch Remaining orders and notations as noted Resident Activity Tracking Resident Involvement: Resident Care Provided Care Provided: Adult Hospital Medicine
[2020-11-21] MEDS ORDERED: LACTATED RINGER'S 1,000 ML IV ONE ×2 (00:24→05:53)
[2020-11-21] MEDS: ALBUMIN 25% 12.5 GM/50 ML VIAL IV SCH ×4 (00:36→04:43)
[2020-11-21] MEDS ORDERED: LACTATED RINGER'S 500 ML IV ONE (00:37)
[2020-11-21] MEDS ORDERED: ACETAMINOPHEN SUSP 1000 MG/31.2 ML UDP PO PRN (02:31)
[2020-11-21] MEDS ORDERED: VANCOMYCIN CONSULT ACTIVE PRN (02:31)
[2020-11-21] MEDS ORDERED: PIPERACILL/TAZOBAC CONSULT ACTIVE PRN (02:31)
[2020-11-21] MEDS ORDERED: PIPERACILLIN/TAZOBACTAM 3.375 GM in DEXTROSE 5% 100 ML IV SCH (02:31)
[2020-11-21] MEDS ORDERED: CARBOHYDRATES FOR HYPOGLYCEMIA PO PRN (03:00)
[2020-11-21] MEDS ORDERED: GLUCAGON FOR INJ 1 MG VIAL IM PRN (03:00)
[2020-11-21] MEDS ORDERED: GLUCOSE 10 TABS/TUBE PO PRN (03:00)
[2020-11-21] MEDS ORDERED: GLUCOSE 40% GEL 15 GM TUBE PO PRN (03:00)
[2020-11-21] MEDS ORDERED: DEXTROSE 50% 50 ML SYRINGE IV PRN (03:00)
[2020-11-21 03:19] LABS: Basophils # (auto) 0.01 K/uL (0-0.2); Basophils % (auto) 0.1 %; Hematocrit (blood only) 36.6 % (42-52); Hemoglobin 11.6 g/dL (14.0-18.0); Immature Granulocytes # (auto) 0.06 K/uL (0.00-0.02); Immature Granulocytes % (auto) 0.5 %; Lymphocytes # (auto) 0.61 K/uL (1.2-3.4); Lymphocytes % (auto) 5.3 %; Mean Corpuscular Hemoglobin 28.5 pg (25-34); Mean Corpuscular Hgb Conc 31.7 g/dL (32-36); Mean Corpuscular Volume 89.9 fL (80-100); Monocytes # (auto) 0.85 K/uL (0.11-0.59); Monocytes % (auto) 7.4 %; Neutrophils # (auto) 10.03 K/uL (1.4-6.5); Neutrophils % (auto) 86.7 %; Platelet Count 136 K/uL (130-400); RDW Coefficient of Variation 16.6 % (11.5-14.5); RDW Standard Deviation 54.8 fL (36.4-46.3); Red Blood Count 4.07 M/uL (4.7-6.1); White Blood Count 11.56 K/uL (4.8-10.8)
[2020-11-21 03:48] LABS: Albumin Globulin Ratio 0.6 (0.9-2); Albumin Level 2.4 gm/dl (3.4-5.0); BUN Creatinine Ratio 41.6 (10-20); Bilirubin,Total 0.6 mg/dl (0.2-1); Calcium 8.2 mg/dl (8.5-10.1); Creatinine Clr Calc Pharmacy 97.2 ml/min; Est GFR (African American) 108.8 ml/min; Est GFR (Non-African American) 93.9 ml/min; Globulin 4.1 gm/dl (2.5-4.0); Potassium 4.1 mmol/L (3.5-5.1); Total Protein 6.5 gm/dl (6.4-8.2)
[2020-11-21] MEDS: LACTATED RINGER'S 1,000 ML IV SCH ×2 (03:51→13:54)
[2020-11-21] MEDS ORDERED: TOBRAMYCIN CONSULT ACTIVE PRN (04:27)
[2020-11-21] MEDS: metroNIDAZOLE 500 MG/100 ML BAG IV SCH ×4 (05:41→22:27)
[2020-11-21] MEDS ORDERED: DEXTROSE 5% IV ONE (06:00)
[2020-11-21] MEDS ORDERED: TOBRAMYCIN SULFATE IV ONE (06:00)
--- NOTE | 2020-11-21 07:01 | XRay Report ---
XR chest 1V portable CLINICAL HISTORY: weakness PATIENT UNRESPONSIVE COMPARISON STUDY: 08/16/2020 FINDINGS: The cardiac and mediastinal contours remain stable. A tracheostomy tube is visualized. Ther e are low lung volumes. There is persistent interstitial thickening. There are more focal nodular air space opacities in the left lung base, atelectasis versus focal pneumonitis.[ IMPRESSION: 1. Low lung volumes with persistent interstitial thickening 2. Interval development of more focal nodular airspace opacities at the left lung base, atelectasis v ersus focal pneumonitis. ACT 112: Negative or not required by law. Electronically signed by: Carmelo Blankenship M.D. 11/21/2020 7:00 AM
[2020-11-21] MEDS: VALPROIC ACID SOLN 500 MG/10 ML UDC PEG SCH ×2 (07:38→22:27)
[2020-11-21] MEDS: ASPIRIN 81 MG CHEW PEG SCH (07:38)
[2020-11-21] MEDS: LANSOPRAZOLE 30 MG SOLTAB PEG SCH (07:38)
[2020-11-21] MEDS: guaiFENesin SUGAR FREE 200 MG/10 ML UDC GT SCH ×2 (07:38→22:27)
[2020-11-21] MEDS: levETIRAcetam ORAL SOLN 100MG/ML GT SCH ×2 (07:39→16:05)
[2020-11-21] MEDS: ENOXAPARIN INJ 40 MG/0.4 ML SYR SQ SCH (07:39)
[2020-11-21] MEDS: CHECK fentaNYL PATCH PLACEMENT SCH ×2 (07:39→15:33)
[2020-11-21] MEDS: HALOPERIDOL 2 MG/1 ML UDP PO SCH ×2 (07:39→22:27)
[2020-11-21] MEDS: INSULIN GLARGINE SOLOSTAR 100 UNITS/ML 3 ML PEN SQ SCH (08:35)
--- NOTE | 2020-11-21 08:40 | CT Scan Report ---
CT head/brain wo con CLINICAL HISTORY: Acute change in mental status COMPARISON STUDY: 01/04/2020 TECHNIQUE: Axial CT of the brain is performed from the vertex to the skull base. IV contrast was not administered for this examination. A dose lowering technique was utilized adhering to the principles of ALARA. CT DOSE: FINDINGS: There is continued evidence for left frontal lobe encephalomalacia. There is associated dilatation of the left lateral ventricle. There is no CT evidence of acute cortical infarction. There is no midlin e shift. There is no evidence of acute hemorrhage. There are patchy white matter hypodensities likely on a small vessel basis. There are old lacunar inf arcts within the left basal ganglia and right thalamus. There is mild dilatation left lateral ventricle secondary to volume loss. There is no evidence of acute sinusitis IMPRESSION: 1. No significant change from the preceding study 2. Chronic left frontal lobe encephalomalacia with secondary dilatation of the left lateral ventricle 3. Old lacunar infarcts within the left basal ganglia and right thalamus. ACT 112: Negative or not required by law. Electronically signed by: Carmelo Blankenship M.D. 11/21/2020 8:39 AM
--- NOTE | 2020-11-21 09:18 | CT Scan Report ---
CT SCAN OF THE ABDOMEN AND PELVIS WITHOUT CONTRAST CLINICAL HISTORY: AMS, vomiting COMPARISON STUDY: February 13, 2015 TECHNIQUE: CT scan of the abdomen and pelvis was performed from the lung bases to the proximal femurs . Images are reviewed in the axial, sagittal, and coronal planes. IV contrast was not administered fo r this examination. A dose lowering technique was utilized adhering to the principles of ALARA. CT DOSE: 1203.78 mGy.cm FINDINGS: Lower chest: Patchy airspace opacity within bilateral basis intermixed with areas of groundglass atte nuation. Limited evaluation of lung parenchyma due to significant motion artifact. Liver: The unenhanced liver is normal in size, contour, and attenuation. There is no intrahepatic sharon iary ductal dilatation. Gallbladder: Fluid-filled with mild increased intraluminal attenuation within its dependent portion m ight represent biliary sludge. No radiopaque gallstones are seen. No significant pericholecystic nehemiah a/fat stranding. Spleen: Normal in size and attenuation. Pancreas: Unremarkable. Adrenal glands: Nodularity of bilateral adrenal glands are seen. Kidneys: The unenhanced kidneys are normal in size without hydronephrosis. There is 2.5 cm soft tissu e attenuating lesion is again seen at the right renal cortex which appears similar to prior study in 2015 and might represent proteinaceous cysts or stable neoplasm. Correlation is limited due to lack o f IV contrast.. 4 mm nonobstructive calculus is seen within left renal pelvis. Bowel: Bowel loops are nondilated. PEG tube is seen within nondilated stomach. Appendix is not well v isualized. Mild diverticulosis of sigmoid colon. No evidence of diverticulitis. Bilateral fat-containing inguinal hernias. Peritoneum: There is no intraperitoneal free air or abdominal ascites. Vasculature: Tortuous dilated intra-abdominal aorta with right hepatic stent within its infrarenal as pect. Mild interval enlargement of the posterior nondistended lumen is seen within proximal infrarena l aorta. Evaluation is limited on this noncontrast exam (series 6 image 236) Adenopathy: No mesenteric lymphadenopathy seen. Interval enlargement of retrocrural. Retroperitoneal lymph nodes measuring up to 1.6 cm in short axis. Pelvic viscera: The bladder, and pelvic viscera are unremarkable. Small bilateral fat-containing ingu inal hernias are seen. Umbilical hernia is seen partially contain nondilated loop of the small bowel. Skeletal structures: Osseous structures are demineralized. Multilevel degenerative changes are seen. IMPRESSION: 1. Tortuous dilated abdominal aorta with infrarenal stent. Questionable dilated of non-stented lumen as detailed above. Further evaluation with angiography of abdominal aorta is suggested. 2. Small umbilical hernia containing nondilated loop of the small bowel. No evidence of obstruction or strangulation. 3. Retroperitoneal lymphadenopathy. Please correlate above-mentioned findings was prior history of n eoplastic process. 4. Nonobstructive nephrolithiasis on the left. Stable size of the soft tissue lesion at the right re nal cortex. Please correlate above-mentioned findings was prior history. Further evaluation with judy l ultrasound the nonemergency basis is suggested. ACT 112: Positive. There are findings on this exam that require communication between the performing entity and the patient following Patient Test Result Information Act ([place] Act 112) guidelines. The above report was generated using voice recognition software. It may contain grammatical, syntax o r spelling errors. Electronically signed by: Aundrea Randall DO 11/21/2020 9:17 AM
[2020-11-21] MEDS: VANCOMYCIN HCL 1,250 MG in SODIUM CHLORIDE 0.9% 250 ML IV SCH ×2 (09:39→22:27)
--- NOTE | 2020-11-21 09:44 | Pharmacy Report ---
Pharmacy Abx Initial Consult - Date of Service November 21, 2020 - Pharmacy Dosing Scope Date of Consult: 11/20 Consultation requested by: Dr. Barnett Pharmacy is consulted to initiate vancomycin/tobramycin IV/PO dosing therapy, order appropriate labs and adjust drug dose/frequency. - Subjective The patient is a 69 year old M admitted on 11/21/20 00:56. - Objective Height: 5 ft 10 in Weight: 75.7 kg Vital Signs (Past 12hrs): Vital Signs Temp Pulse Pulse Resp BP BP Pulse Ox 11/21/20 08:02 20 94 11/21/20 07:24 37.7 C H 77 21 103/60 94 11/21/20 03:38 36.4 C L 88 20 133/78 94 11/21/20 02:31 36.6 C 100 H 22 127/85 90 11/21/20 01:30 96 H 34 H 120/90 93 11/21/20 01:15 36.9 C 11/21/20 01:00 98 H 26 H 126/77 91 11/21/20 00:31 95 H 28 H 119/82 94 11/21/20 00:00 87 28 H 87/64 L 98 11/20/20 23:31 83 25 H 91 11/20/20 23:30 81 24 88/63 L 98 11/20/20 22:50 88 28 H 98 11/20/20 22:40 91 H 30 H 97 11/20/20 22:34 90 29 H 103/71 97 11/20/20 22:30 91 H 30 H 96 11/20/20 22:20 96 H 32 H 97 11/20/20 22:16 94 H 20 92 11/20/20 22:10 93 H 32 H 100 11/20/20 22:01 93 H 31 H 100 11/20/20 22:00 94 H 30 H 109/79 100 11/20/20 21:53 100 Lab Results (24hrs): Laboratory Tests (24 Hours) 11/21/20 11/21/20 11/21/20 02:57 02:57 02:57 WBC 11.56 H Neut # (Auto) 10.03 H Creatinine 0.72 Est Cr Clr Drug Dosing 97.2 Total Creatine Kinase Procalcitonin 0.23 11/20/20 11/20/20 21:19 21:19 WBC 12.44 H Neut # (Auto) 11.00 H Creatinine 0.91 Est Cr Clr Drug Dosing 76.9 Total Creatine Kinase 36 L Procalcitonin Micro Results: 11/20/20 21:19 Aerobic Blood Culture - Pending Blood 11/20/20 23:13 Aerobic Blood Culture - Pending Blood Anaerobic Blood Culture - Pending - Risk Factors for Resistance * Resident in a [facility] or extended-care facility * History of infection with a multidrug-resistant organism - Assessment & Plan Assessment 69 year old M receiving vancomycin, metronidazole, and tobramycin for suspected aspiration pneumonia in the setting of decreased responsiveness, fever, and emesis on admission. Patient with chronic trach collar and history of MRSA, ESBL Klebsiella, and resistant pseudomonas in previous sputum cultures. Renal function stable (baseline SCr ~ 0.7-0.9mg/dL). ID consulted. Plan Vancomycin IV * Patient meets criteria for vancomycin AUC dosing nomogram * AUC/MARA is the preferred PK/PD target for vancomycin * Target AUC/MARA = 400-600 * AUC guided dosing is effective and associated with decreased risk of nephrotoxicity * Loading dose: 1500 mg (20 mg/kg) 11/20 * Maintenance dose: 1250mg IV (~16 mg/kg) every 12 hours * Trough level ordered for 11/22 prior to the AM dose Tobramycin * Patient meets criteria for extended-interval aminoglycoside dosing per the [place] nomogram * Dose: 500mg (7 mg/kg)X 1 * Random level ordered for 10 hours after the start of the infusion to determine appropriate dosing interval Pharmacy will continue to follow and will adjust dose/frequency as necessary. Thank you.
--- NOTE | 2020-11-21 13:00 | Communication Note ---
Date of Service: November 21, 2020 Patient seen by admitting physician the same day therefore not be billing for this encounter. Patient is nonverbal. Coarse breath sounds bilaterally. Systolic murmur throughout. Intermittent shaking of left side. Increased tone in all 4 extremities. Grimacing. Not alert. Blood cultures positive for gram positive cocci in clusters with PCR for MRSA positive. TTE ordered. Consult infectious disease for coverage of MRSA bacteremia in addition to aspiration PNA. Continue vancomycin, tobramycin + metronidazole for now, consider Avycaz or Zerbaxa given prior pseudomonas but will defer this to infectious disease. Given one sided shaking on exam will get EEG to assess for seizure activity and consult neurology for potential need to increase anti-seizure medications.
--- NOTE | 2020-11-21 13:33 | Electrocardiogram Report ---
Test Reason : Blood Pressure : / mmHG Vent. Rate : 097 BPM Atrial Rate : 097 BPM P-R Int : 168 ms QRS Dur : 086 ms QT Int : 350 ms P-R-T Axes : 018 -57 043 degrees QTc Int : 444 ms Sinus rhythm with frequent Premature ventricular complexes Left axis deviation Inferior infarct (cited on or before 26-NOV-2018) Abnormal ECG When compared with ECG of 16-AUG-2020 15:39, Nonspecific T wave abnormality has replaced inverted T waves in Lateral leads Confirmed by Jakob Byrd ([id number]) on 11/21/2020 1:33:16 PM Referred By: [facility] Confirmed By:Jakob Byrd
--- NOTE | 2020-11-21 13:44 | Neurology Consultation ---
Date of Consultation November 21, 2020 Assessment & Plan (1) AMS (altered mental status): (2) Fever: (3) MRSA bacteremia: (4) H/O: stroke with residual effects: (5) Seizure disorder: Fede Hinojosa is a 69 yo man w/ PMH of prior left BERRY stroke with residual right-sided weakness and aphasia complicated by post stroke spasticity and epilepsy, dementia, protein energy malnutrition, diabetes, hypertension, schizoaffective disorder, hyperlipidemia who presented to [facility] with sepsis. Neurology consulted given h/o epilepsy and possible breakthrough seizure. # Epilepsy: possible breakthrough seizure in the setting of sepsis - current AEDs: continue keppra 750mg q12h, depakote 500mg tid - check free and total depakote levels, keppra level (ordered) - consider bridge with klonopin 0.5mg bid x 3-5 days depending on results of EEG while infection is being treated (not clearly having seizures so would hold off at this time) # H/o left BERRY stroke with residual deficits: - continue aspirin 81mg daily, restart home simvastatin 10mg qhs when safe from a medical standpoint # Dementia: - delirium precautions - generally not appropriate to be on opiates with his level of dementia. Would consider weaning off (unless made comfort only) as this can worsen mental status. If higher level of pain control above tylenol/tramadol needed, would consider tylenol ( IV) instead of fentanyl patch for pain management Thank you for this interesting consult. Plan of care discussed with primary team. Please call or text questions. History of Present Illness Attending Physician: Vinny Fenton MD History of Present Illness Fede Hinojosa is a 69 yo man w/ PMH of prior left BERRY stroke with residual right-sided weakness and aphasia complicated by post stroke spasticity and epilepsy, dementia, protein energy malnutrition, diabetes, hypertension, schizoaffective disorder, hyperlipidemia who presented to [facility] with sepsis. Neurology consulted given h/o epilepsy and possible breakthrough seizure. In the ED, he was noted to be febrile, hypotensive and have decreased responsiveness/vomiting. CXR showed possible left sided infiltrate. Labs notable for WBC 12.44, hemoglobin 14.1, platelets 190, sodium 137, potassium 4.6, BUN 35, creatinine 0.91, GFR 84.5, glucose 210, lactate 2.5, calcium within normal, magnesium within normal, LFTs within normal, ammonia 22.1, CK 36, troponin negative, albumin low 2.4, TSH within normal, procalcitonin 0.23, UA showed pyuria trace hematuria but no infection, Covid negative, MRSA blood culture positive. Blood culture is currently growing gram-positive cocci in clusters disease has history of MRSA and Pseudomonas in the past). Imaging independently viewed. CT head shows stable left BERRY encephalomalacia chronic infarcts in left basal ganglia and right thalamus, with no hemorrhage or hypodensity noted. He was started on antibiotics and fluids and admitted for further workup. He is unable to provide further history on examination. He opens eyes to loud noises and mainly noxious stimuli. Does not follow commands but does track examiner. Allergies Allergy/AdvReac Type Severity Reaction Status Date / Time No Known Allergies Allergy Verified 11/20/20 21:40 Home Medications Medication Instructions Recorded Confirmed Type aspirin 81 mg FEEDING TUBE DAILY #90 tab 01/25/20 11/20/20 Rx fentanyl 12 mcg TRANSDERMAL Q72H #10 patch 01/25/20 11/20/20 Rx acetaminophen [Tylenol] 650 mg FEEDING TUBE Q6 PRN 05/19/20 11/20/20 History ascorbic acid (vitamin C) [Vitamin 500 mg FEEDING TUBE QAM 05/19/20 11/20/20 History C] cholecalciferol (vitamin D3) 125 mcg FEEDING TUBE QAM 05/19/20 11/20/20 History [Vitamin D3] ferrous sulfate 300 mg FEEDING TUBE BID #0 05/19/20 11/20/20 History guaifenesin 200 mg FEEDING TUBE BID #0 05/19/20 11/20/20 History insulin lispro 1 sliding scale dose SUBCUT 05/19/20 11/20/20 History USEASDIRECTD protein supplement 30 ea FEEDING TUBE BID #0 05/19/20 11/20/20 History tramadol 50 mg FEEDING TUBE Q4 PRN 05/19/20 11/20/20 History valproic acid (as sodium salt) 500 mg FEEDING TUBE BID #0 05/19/20 11/20/20 History esomeprazole magnesium 40 mg G-TUBE QAM 08/16/20 11/20/20 History haloperidol lactate 2 mg PO Q12H 08/16/20 11/20/20 History levetiracetam [Keppra] 750 mg FEEDING TUBE BID 08/16/20 11/20/20 History polyethylene glycol 3350 [Miralax] 17 g FEEDING TUBE QAM 08/16/20 11/20/20 History Lantus Solostar U-100 Insulin 14 unit SUBCUT QAM 11/20/20 11/20/20 History Patient History Medical History Alzheimer disease Chronic gout Chronic prescription opiate use Dementia Diabetes Gastrointestinal hemorrhage GERD (gastroesophageal reflux disease) Goals of care, counseling/discussion Hypertension Muscle weakness Peripheral vascular disease Pneumonia due to COVID-19 virus Schizoaffective disorder, chronic condition Seizure disorder Stroke Tachypnea Urinary tract infection Surgical History Status post insertion of percutaneous endoscopic gastrostomy (PEG) tube Tracheostomy in place Family History Other No significant family history Social History Smoking Status: Unknown if ever smoked Do You Dip or Chew Tobacco: No; Tobacco Cessation Education Requested by Patient: No Hx Alcohol Use: No Hx Substance Use: No Communication Ability: Unable Reservations Sales Agent Required: No Beliefs That Will Affect Care: None marital status: Unknown Current Living Situation: [facility] Other Information That Helps Us Care for You: No Feels Safe at Home: Yes Assistive Devices: Oxygen - Continuous Review of Systems Review of Systems: Unobtainable due to cognitive status Exam (Neuro) Physical Exam: General Exam: GEN: NAD, lying in bed. HEENT: No conjunctival injection, no rhinorrhea. CV: RRR, no peripheral edema PULM: trach with 8L Neuro Exam: MS: Drowsy but arousable with noxious stimuli and stays awake. Unable to answer orientation questions. Does not follow commands. Cognition and memory grossly impaired but cannot be fully assess given global aphasia. Inattentive CN: PERRLA OU. Unable to fully assess extraocular movements but those that are observed were intact without nystagmus. Positive blink to threat bilaterally. Face symmetric. Positive cough. Unable to further test cranial nerves given mental status. MOTOR: Decreased muscle bulk, increased tone in RLE>RUE. Will hold all extremities antigravity (drifts to bed on the RUE/RLE). +tardive dyskinesia. Mild fine tremor on LUE/LLE when extremities elevated, resolves for the most part when resting on the bed. REFLEXES: Unable to assess biceps or upper extremity reflexes given patient inability to hold still. No clear clonus noted. SENSORY: no clear withdrawal or grimace to noxious stimuli in extremities. COORDINATION: Unable to assess given patient inability to follow commands. GAIT: Deferred given physical status. Results & Data ([facility]) Vital Signs (Past 12 Hours) Vital Signs Temp Pulse Pulse Resp BP Pulse Ox 11/21/20 10:56 36.4 C L 60 20 107/70 94 11/21/20 08:02 20 94 11/21/20 08:00 79 11/21/20 07:24 37.7 C H 77 21 103/60 94 11/21/20 03:38 36.4 C L 88 20 133/78 94 11/21/20 02:31 36.6 C 100 H 22 127/85 90 PG Care Time/CCT Total # of Minutes Spent Total Time Spent with Patient: Total time spent is greater than 50% in coordination of care (as documented) at patient's floor/unit and/or counseling patient: Coding Level of Care Code 34978 Initial Inpt Care Lvl 3 Diagnoses AMS (altered mental status) R41.82 Fever R50.9 MRSA bacteremia R78.81; B95.62 H/O: stroke with residual effects I69.30 Seizure disorder G40.909
[2020-11-21 15:27] LABS: Appearance Urine Clear (Clear); Bacteria Urine Automated Negative (Negative); Bilirubin Urine Negative (Negative); Blood Urine 3+ (Negative); Color Urine Dark Yellow; Epithelial Cell Urine Auto >30 /lpf (0-5); Glucose Urine UA Negative (Negative); Ketones Urine Negative (Negative); Leukocyte Esterase Urine 1+ (Negative); Nitrite Urine Negative (Negative); Protein Urine Trace (Negative); RBC Urine Automated >30 /hpf (0-4); Specific Gravity Urine 1.025 (1.000-1.030); Urobilinogen Urine Negative (Negative); pH Urine 6.5 (4.5-7.5)
--- NOTE | 2020-11-21 15:28 | XCELERA ---
[id number]
[2020-11-22] MEDS: CHECK fentaNYL PATCH PLACEMENT SCH ×3 (00:34→16:02)
[2020-11-22] MEDS: metroNIDAZOLE 500 MG/100 ML BAG IV SCH ×2 (04:18→12:50)
--- NOTE | 2020-11-22 05:14 | Billing Data ---
Date of Service November 22, 2020 Coding Level of Care Code 30374 Initial Inpt Care Lvl 3
[2020-11-22 06:34] LABS: Basophils # (auto) 0.01 K/uL (0-0.2); Basophils % (auto) 0.1 %; Eosinophils # (auto) 0.02 K/uL (0-0.5); Eosinophils % (auto) 0.2 %; Hematocrit (blood only) 33.5 % (42-52); Hemoglobin 10.4 g/dL (14.0-18.0); Immature Granulocytes # (auto) 0.07 K/uL (0.00-0.02); Immature Granulocytes % (auto) 0.8 %; Lymphocytes # (auto) 1.11 K/uL (1.2-3.4); Lymphocytes % (auto) 13.3 %; Mean Corpuscular Hemoglobin 27.7 pg (25-34); Mean Corpuscular Volume 89.1 fL (80-100); Monocytes # (auto) 0.88 K/uL (0.11-0.59); Monocytes % (auto) 10.6 %; Neutrophils # (auto) 6.25 K/uL (1.4-6.5); Platelet Count 147 K/uL (130-400); RDW Coefficient of Variation 16.3 % (11.5-14.5); RDW Standard Deviation 53.2 fL (36.4-46.3); Red Blood Count 3.76 M/uL (4.7-6.1); White Blood Count 8.34 K/uL (4.8-10.8)
[2020-11-22 07:04] LABS: BUN Creatinine Ratio 40.7 (10-20); C Reactive Protein 11.5 mg/dl (0-0.29); Calcium 8.5 mg/dl (8.5-10.1); Creatinine Clr Calc Pharmacy 124.9 ml/min; Est GFR (African American) 120.6 ml/min; Est GFR (Non-African American) 104.1 ml/min; Potassium 3.6 mmol/L (3.5-5.1)
[2020-11-22] MEDS: levETIRAcetam ORAL SOLN 100MG/ML GT SCH ×2 (07:59→16:03)
[2020-11-22] MEDS: ASPIRIN 81 MG CHEW PEG SCH (08:00)
[2020-11-22] MEDS: ENOXAPARIN INJ 40 MG/0.4 ML SYR SQ SCH (08:00)
[2020-11-22] MEDS: HALOPERIDOL 2 MG/1 ML UDP PO SCH ×2 (08:00→20:58)
[2020-11-22] MEDS: guaiFENesin SUGAR FREE 200 MG/10 ML UDC GT SCH ×2 (08:01→20:58)
[2020-11-22] MEDS: VALPROIC ACID SOLN 500 MG/10 ML UDC PEG SCH ×2 (08:01→20:58)
[2020-11-22] MEDS: LANSOPRAZOLE 30 MG SOLTAB PEG SCH (08:01)
[2020-11-22] MEDS ORDERED: VANCOMYCIN TROUGH ONE (09:30)
[2020-11-22] MEDS: fentaNYL 12 MCG/HR TDSY TD SCH (09:37)
[2020-11-22] MEDS: INSULIN GLARGINE SOLOSTAR 100 UNITS/ML 3 ML PEN SQ SCH ×2 (09:38→11:17)
[2020-11-22] MEDS: VANCOMYCIN HCL 1,250 MG in SODIUM CHLORIDE 0.9% 250 ML IV SCH (11:16)
--- NOTE | 2020-11-22 12:02 | Pharmacy Report ---
Pharmacy Abx Dose Short Note - Date of Service November 22, 2020 - Assessment & Plan Assessment 69 year old M receiving vancomycin, metronidazole, and tobramycin for suspected aspiration pneumonia and bacteremia. 3/4 blood cultures positive for Staph aureus (sensitivities pending). MRSA PCR positive. Pending ID consult. Random tobramycin level drawn yesterday evening appropriately and was a 10hr level. Vancomycin trough drawn appropriately this AM. Renal function stable (baseline SCr ~ 0.7-0.9mg/dL), however SCr an overestimate of actual drug clearance. Plan Vancomycin * Trough level of 21.1mcg/mL is supratherapeutic, and not a steady state level (additional accumulation likely). * Change to 1000 mg IV every 12 hours after this AM dose * Goal trough level for bacteremia : 15 to 20mcg/mL * Trough level ordered for: 11/23 Tobramycin * Patient meets criteria for extended-interval aminoglycoside dosing per the Martir nomogram * Random level of 6.5 mcg/ml drawn 10 hours after start of infusion indicates a dosing interval of every 36 hours. * Initiate 500 mg (7 mg/kg) every 36 hours. Pharmacy will continue to follow and will adjust dose/frequency as necessary. Thank you.
[2020-11-22] MEDS: FIBERSOURCE HN 1.2 CAL 1000 ML BAG GT PRN (13:44)
--- NOTE | 2020-11-22 16:18 | Hospitalist Progress Note ---
Date of Service November 22, 2020 Assessment & Plan (1) MRSA bacteremia: Suspected primary source pneumonia since previous sputum culture MRSA positive. No areas of cellulitis. Repeat blood cultures in a.m. will need ultrasound-guided IV, PICC or midline once negative after 48 hours TTE negative for vegetation will defer BRITTNEY given poor respiratory status and severe aortic stenosis. Continue vancomycin. (2) Aspiration pneumonitis: Given significant improvement with current antibiotics and no growth of Pseudomonas on sputum culture will discontinue tobramycin and metronidazole pending infectious disease consult. Restart PEG feeds with elevate HOB > 45 degrees at all times (3) Acute encephalopathy: Appears to be back to baseline. (4) Diabetes: Repeat HbA1c in a.m. Previously 7.1 in August. Given hypoglycemia on a.m. labs will reduce Lantus to 7 units every morning (5) Extrapyramidal and movement disorder: Suspect secondary to Haldol however this is needed for his schizoaffective disorder. Continue 2 mg vis PEG twice daily (6) H/O: stroke with residual effects: Continue aspirin 81 mg via PEG daily (7) Schizoaffective disorder, chronic condition: Continue haloperidol 2 mg p.o. twice daily (8) Severe aortic stenosis: No sign of heart failure at this time. Discontinue IV fluids for PEG feeds. (9) Seizure disorder: Appreciate neurology review. Recommend continuation of Keppra and valproic acid at current levels. (10) Chronic prescription opiate use: Continue fentanyl 12 mcg patch (11) Chronic gout: No acute flare. Reportedly this is why he is on chronic opiates. Uric acid previously normal. Not on allopurinol. (12) Presence of externally removable percutaneous endoscopic gastrostomy (PEG) tube: Appreciate dietary consult. Start PEG feeds today. (13) Tracheostomy dependent: Appreciate respiratory management of this. (14) DVT prophylaxis: Continue Lovenox 40 mg SQ daily Admission and Anticipated Discharge Date Admission Date: November 21, 2020 Subjective Patient appears more alert today although not tracking with eyes. This appears to be his baseline state. Unable to get any history out of the patient due to nonverbal status. Review of Systems Review of Systems: Unobtainable due to cognitive status Physical Exam Constitutional: + ill appearing and + disheveled; no acute distress Eyes: PERRL Neck: + tracheostomy present Respiratory: normal respiratory effort; no retractions, does not use accessory muscles, no cough, + not able to speak in complete sentence and no stridor Auscultation: + rales (Coarse bilaterally); no wheezes Cardiovascular: Rate/Rhythm: regular rate and regular rhythm Heart Sounds: + murmur (4/6 CATHY throughout) Gastrointestinal (Abdomen): Inspection/Auscultation: abdomen normal to inspection and normal bowel sounds; abdomen not distended Neurologic: Motor/Sensory: + tremor (Occasional resting bilateral) Cranial Nerves: PERRL Psychiatric: A+Ox3, euthymic affect Orientation: + not alert, + not oriented x 3, + not oriented to person, + not oriented to place and + not oriented to time Results & Data Results & Data ([facility]) Vital Signs (Past 12 Hours) Vital Signs Temp Pulse Pulse Resp BP Pulse Ox 11/22/20 15:56 36.7 C 77 20 137/86 93 11/22/20 14:20 79 11/22/20 07:22 37.2 C 86 18 100/62 95 11/22/20 07:00 86 PG Care Time/CCT Total # of Minutes Spent Total Time Spent with Patient: Total time spent is greater than 50% in coordination of care (as documented) at patient's floor/unit and/or counseling patient: Coding Level of Care Code 73864 Subseq Hosp Care Lvl 3 Diagnoses MRSA bacteremia R78.81; B95.62 Aspiration pneumonitis J69.0 Acute encephalopathy G93.40 Diabetes E11.9; Z79.4 Diabetes mellitus type: type 2 Diabetes mellitus snf insulin use: with snf use Diabetes mellitus complication status: without complication Extrapyramidal and movement disorder G25.9 H/O: stroke with residual effects I69.30 Schizoaffective disorder, chronic condition F25.8 Severe aortic stenosis I35.0 Seizure disorder G40.909 Chronic prescription opiate use Z79.891 Chronic gout [id number].[id number] Presence of externally removable percutaneous endoscopic gastrostomy (PEG) tube Z93.1 Tracheostomy dependent Z93.0 DVT prophylaxis Z29.9 (1) Diabetes Diabetes mellitus type: type 2 Diabetes mellitus snf insulin use: with snf use Diabetes mellitus complication status: without complication Qualified Code(s): E11.9 - Type 2 diabetes mellitus without complications; Z79.4 - [facility] (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
[2020-11-22] MEDS ORDERED: TOBRAMYCIN SULFATE IV SCH (18:00)
[2020-11-22] MEDS ORDERED: DEXTROSE 5% IV SCH (18:00)
[2020-11-23] MEDS: CHECK fentaNYL PATCH PLACEMENT SCH ×3 (00:41→16:15)
[2020-11-23] MEDS: VANCOMYCIN HCL 1,000 MG in SODIUM CHLORIDE 0.9% 250 ML IV SCH ×2 (00:47→12:37)
[2020-11-23 08:03] LABS: Basophils # (auto) 0.01 K/uL (0-0.2); Basophils % (auto) 0.1 %; Eosinophils # (auto) 0.02 K/uL (0-0.5); Eosinophils % (auto) 0.3 %; Hematocrit (blood only) 35.9 % (42-52); Hemoglobin 11.3 g/dL (14.0-18.0); Immature Granulocytes # (auto) 0.03 K/uL (0.00-0.02); Immature Granulocytes % (auto) 0.4 %; Lymphocytes # (auto) 1.18 K/uL (1.2-3.4); Lymphocytes % (auto) 15.9 %; Mean Corpuscular Hemoglobin 28.1 pg (25-34); Mean Corpuscular Hgb Conc 31.5 g/dL (32-36); Mean Corpuscular Volume 89.3 fL (80-100); Mean Platelet Volume 10.3 fL (7.4-10.4); Monocytes # (auto) 0.67 K/uL (0.11-0.59); Neutrophils % (auto) 74.3 %; Platelet Count 182 K/uL (130-400); RDW Standard Deviation 52.7 fL (36.4-46.3); Red Blood Count 4.02 M/uL (4.7-6.1); White Blood Count 7.41 K/uL (4.8-10.8)
[2020-11-23 08:27] LABS: Estimated Average Glucose 137 mg/dl; Hemoglobin A1C 6.4 % (4.5-5.6)
[2020-11-23 08:31] LABS: Calcium 8.7 mg/dl (8.5-10.1); Est GFR (African American) 123.4 ml/min; Est GFR (Non-African American) 106.5 ml/min; Magnesium 1.9 mg/dl (1.8-2.4); Potassium 3.3 mmol/L (3.5-5.1)
[2020-11-23 08:32] LABS: Phosphorus 2.1 mg/dl (2.5-4.9)
[2020-11-23] MEDS: levETIRAcetam ORAL SOLN 100MG/ML GT SCH ×2 (08:38→16:15)
[2020-11-23] MEDS: ASPIRIN 81 MG CHEW PEG SCH (08:39)
[2020-11-23] MEDS: guaiFENesin SUGAR FREE 200 MG/10 ML UDC GT SCH ×2 (08:39→21:11)
[2020-11-23] MEDS: ENOXAPARIN INJ 40 MG/0.4 ML SYR SQ SCH (08:39)
[2020-11-23] MEDS: INSULIN GLARGINE SOLOSTAR 100 UNITS/ML 3 ML PEN SQ SCH (08:40)
[2020-11-23] MEDS: LANSOPRAZOLE 30 MG SOLTAB PEG SCH (08:40)
[2020-11-23] MEDS: HALOPERIDOL 2 MG/1 ML UDP PO SCH ×2 (08:40→21:11)
[2020-11-23] MEDS: VALPROIC ACID SOLN 500 MG/10 ML UDC PEG SCH ×2 (08:41→21:11)
[2020-11-23] MEDS ORDERED: POTASSIUM PHOS 3 MMOL/1 ML INFUSION IV STA (09:20)
[2020-11-23] MEDS ORDERED: POTASSIUM PHOSPHATE 9 MMOL in SODIUM CHLORIDE 0.9% 250 ML IV ONE (09:45)
[2020-11-23] MEDS: POTASSIUM CHLORIDE PWD 20 MEQ PACK GT SCH (10:57)
--- NOTE | 2020-11-23 11:19 | XRay Report ---
XR chest 1V portable CLINICAL HISTORY: pneumonia COMPARISON STUDY: November 20, 2020 FINDINGS: No definite pneumothorax seen however evaluation is limited because the right lung apex is obscured b y overlying patient's chin.. Interval development of small right pleural effusion. Lung volumes are decreased with crowded lung markings. Patchy airspace opacities at the left lower singh ng are slightly improved since prior study. Small atelectasis at the right base is seen. Cardiomediastinal silhouette is stable. Pulmonary vasculature is obscured. Osseous structures: Degenerative changes of the spine. IMPRESSION: 1. Minimal interval improvement of airspace opacities at the left base. 2. Small right pleural effusion. 3. Limited exam. ACT 112: Negative or not required by law. The above report was generated using voice recognition software. It may contain grammatical, syntax o r spelling errors. Electronically signed by: Aundrea Randall DO 11/23/2020 11:18 AM
[2020-11-23] MEDS ORDERED: VANCOMYCIN TROUGH ONE (11:30)
--- NOTE | 2020-11-23 13:20 | Pharmacy Report ---
Pharmacy Abx Dose Short Note - Date of Service November 23, 2020 - Assessment & Plan Assessment 69 year old M receiving vancomycin for MRSA bacteremia. 3/ blood cultures (+) MRSA. Pending ID consult. Vancomycin trough drawn appropriately this afternoon and was a 10.75hr level, and not a steady state level. Renal function stable (baseline SCr ~ 0.7-0.9mg/dL), however SCr an overestimate of actual drug clearance. Day #4 of antimicrobial therapy. Plan Vancomycin * Trough level of 22.2 mcg/mL is supratherapeutic and not at steady state on this regimen. * Change to 750mg IV every 12 hours to start ~15hr after today's dose to allow for some additional clearance of drug. * Goal trough level for bacteremia : 15 to 20 mcg/mL * Trough level ordered for: 11/24 afternoon Pharmacy will continue to follow and will adjust dose/frequency as necessary. Thank you.
--- NOTE | 2020-11-23 14:10 | Hospitalist Progress Note ---
Date of Service November 23, 2020 Assessment & Plan (1) MRSA bacteremia: Suspected primary source pneumonia since previous sputum culture MRSA positive. No areas of cellulitis. Repeat blood culturespending. will need ultrasound-guided IV, PICC or midline once negative after 48 hours TTE negative for vegetation. Discussed with infectious disease - switch vancomycin to ceftaroline. (2) Aspiration pneumonitis: Procalcitonin negative. Tobramycin and metronidazole discontinued yesterday. Repeat chest x-ray with minimal improvement airspace opacities at left base. Notably sputum growing gram-negative bacilli. Suspect he is colonized with Pseudomonas and illness getting worse more continue to hold tobramycin at the current time. Continue PEG feeds with elevate HOB > 45 degrees at all times (3) Acute encephalopathy: Appears to be back to baseline. (4) Diabetes: Repeat HbA1c 6.4. Continue reduced Lantus to 7 units every morning (5) Extrapyramidal and movement disorder: Suspect secondary to Haldol however this is needed for his schizoaffective disorder. Continue 2 mg vis PEG twice daily (6) H/O: stroke with residual effects: Continue aspirin 81 mg via PEG daily (7) Schizoaffective disorder, chronic condition: Continue haloperidol 2 mg p.o. twice daily (8) Severe aortic stenosis: No sign of heart failure at this time. Discontinued IV fluids for PEG feeds. (9) Seizure disorder: Appreciate neurology review. Recommend continuation of Keppra and valproic acid at current levels. (10) Chronic prescription opiate use: Continue fentanyl 12 mcg patch (11) Chronic gout: No acute flare. Reportedly this is why he is on chronic opiates. Uric ac id previously normal. Not on allopurinol. (12) Presence of externally removable percutaneous endoscopic gastrostomy (PEG) tube: Appreciate dietary consult. Continue PEG feeds today. Q2D PO/Mg (13) Tracheostomy dependent: Appreciate respiratory management of this. (14) DVT prophylaxis: Continue Lovenox 40 mg SQ daily Admission and Anticipated Discharge Date Admission Date: November 21, 2020 Subjective Patient appears the same today. Eyes open but no tracking. No verbal response. Localizes pain, does not obey commands. Review of Systems Review of Systems: Unobtainable due to cognitive status Physical Exam Constitutional: + ill appearing and + disheveled; no acute distress Neck: + tracheostomy present Respiratory: normal respiratory effort; no retractions, does not use accessory muscles, no cough, + not able to speak in complete sentence and no stridor Auscultation: + rales (Coarse bilaterally); no wheezes Cardiovascular: Rate/Rhythm: regular rate and regular rhythm Heart Sounds: + murmur (4/6 CATHY throughout) Gastrointestinal (Abdomen): Inspection/Auscultation: abdomen normal to inspection and normal bowel sounds; abdomen not distended Neurologic: PERRL, EOMI, accommodation nl, no face palsy, no dysarthria Motor/Sensory: + tremor (Occasional resting bilateral) Cranial Nerves: PERRL Psychiatric: A+Ox3, euthymic affect Orientation: + not alert, + not oriented x 3, + not oriented to person, + not oriented to place and + not oriented to time Results & Data Results & Data ([facility]) Vital Signs (Past 12 Hours) Vital Signs Temp Pulse Pulse Resp BP Pulse Ox 11/23/20 11:25 36.8 C 82 20 129/70 92 11/23/20 07:40 36.5 C 79 20 129/75 94 11/23/20 07:18 74 11/23/20 03:00 36.6 C 78 18 141/95 H 95 11/23/20 02:23 82 PG Care Time/CCT Total # of Minutes Spent Total Time Spent with Patient: Total time spent is greater than 50% in coordination of care (as documented) at patient's floor/unit and/or counseling patient: Coding Level of Care Code 98465 Subseq Hosp Care Lvl 2 Diagnoses MRSA bacteremia R78.81; B95.62 Aspiration pneumonitis J69.0 Acute encephalopathy G93.40 Diabetes E11.9; Z79.4 Diabetes mellitus complication status: without complication Diabetes mellitus pharmacy technician insulin use: with fdc use Diabetes mellitus type: type 2 Extrapyramidal and movement disorder G25.9 H/O: stroke with residual effects I69.30 Schizoaffective disorder, chronic condition F25.8 Severe aortic stenosis I35.0 Seizure disorder G40.909 Chronic prescription opiate use Z79.891 Chronic gout M1A.9XX0 Presence of externally removable percutaneous endoscopic gastrostomy (PEG) tube Z93.1 Tracheostomy dependent Z93.0 DVT prophylaxis Z29.9 (1) Diabetes Diabetes mellitus complication status: without complication Diabetes mellitus pharmacy technician insulin use: with fdc use Diabetes mellitus type: type 2 Qualified Code(s): E11.9 - Type 2 diabetes mellitus without complications; Z79.4 - tile erector (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
--- NOTE | 2020-11-23 16:14 | Electroencephalogram ---
EEG Procedure Note Date of Service November 23, 2020 Start / End Times Start Time: 12:40pm End Time: 1pm Referring Physician Dr King History possible seizure Home Medication List Medication Instructions Recorded Confirmed Type aspirin 81 mg FEEDING TUBE DAILY #90 tab 01/25/20 11/20/20 Rx fentanyl 12 mcg TRANSDERMAL Q72H #10 patch 01/25/20 11/20/20 Rx acetaminophen [Tylenol] 650 mg FEEDING TUBE Q6 PRN 05/19/20 11/20/20 History ascorbic acid (vitamin C) [Vitamin 500 mg FEEDING TUBE QAM 05/19/20 11/20/20 History C] cholecalciferol (vitamin D3) 125 mcg FEEDING TUBE QAM 05/19/20 11/20/20 History [Vitamin D3] ferrous sulfate 300 mg FEEDING TUBE BID #0 05/19/20 11/20/20 History guaifenesin 200 mg FEEDING TUBE BID #0 05/19/20 11/20/20 History insulin lispro 1 sliding scale dose SUBCUT 05/19/20 11/20/20 History USEASDIRECTD protein supplement 30 ea FEEDING TUBE BID #0 05/19/20 11/20/20 History tramadol 50 mg FEEDING TUBE Q4 PRN 05/19/20 11/20/20 History valproic acid (as sodium salt) 500 mg FEEDING TUBE BID #0 05/19/20 11/20/20 History esomeprazole magnesium 40 mg G-TUBE QAM 08/16/20 11/20/20 History haloperidol lactate 2 mg PO Q12H 08/16/20 11/20/20 History levetiracetam [Keppra] 750 mg FEEDING TUBE BID 08/16/20 11/20/20 History polyethylene glycol 3350 [Miralax] 17 g FEEDING TUBE QAM 08/16/20 11/20/20 History Lantus Solostar U-100 Insulin 14 unit SUBCUT QAM 11/20/20 11/20/20 History Inpatient Medication List Acetaminophen (Acetaminophen Susp 1000 Mg/31.2 Ml Udp) 1,000 mg PO Q8H PRN PRN Reason: fever or pain Stop: 12/21/20 02:30 Last Admin: 11/21/20 16:05 Dose: 1,000 mg Documented by: [id number] Aspirin (Aspirin 81 Mg Chew) 81 mg PEG DAILY OFE Stop: 12/21/20 08:59 Last Admin: 11/23/20 08:39 Dose: 81 mg Documented by: [id number] Admin: 11/22/20 08:00 Dose: 81 mg Documented by: [id number] Admin: 11/21/20 07:38 Dose: 81 mg Documented by: [id number] Enoxaparin Sodium (Enoxaparin Inj 40 Mg/0.4 Ml Syr) 40 mg SQ Q24H OFE Stop: 12/21/20 08:59 Last Admin: 11/23/20 08:39 Dose: 40 mg Documented by: [id number] Admin: 11/22/20 08:00 Dose: 40 mg Documented by: [id number] Admin: 11/21/20 07:39 Dose: 40 mg Documented by: [id number] Enteral Nutritional Formula (Fibersource Hn 1.2 Rohit 1000 Ml Bag) 1,000 ml GT UD PRN; Protocol PRN Reason: NUTRITION Stop: 12/22/20 08:44 Last Admin: 11/22/20 13:44 Dose: 1,000 ml Documented by: [id number] Fentanyl (Fentanyl 12 Mcg/Hr Tdsy) 12 mcg TD Q72H OFE Stop: 12/06/20 08:59 Last Admin: 11/22/20 09:37 Dose: 12 mcg Documented by: [id number] Guaifenesin (Guaifenesin Sugar Free 200 Mg/10 Ml Udc) 200 mg GT BID OFE Stop: 12/21/20 08:59 Last Admin: 11/23/20 08:39 Dose: 200 mg Documented by: [id number] Admin: 11/22/20 20:58 Dose: 200 mg Documented by: [id number] Admin: 11/22/20 08:01 Dose: 200 mg Documented by: [id number] Admin: 11/21/20 22:27 Dose: 200 mg Documented by: [id number] Admin: 11/21/20 07:38 Dose: 200 mg Documented by: [id number] Haloperidol Lactate (Haloperidol 2 Mg/1 Ml Udp) 2 mg PO Q12 OFE Stop: 12/21/20 08:59 Last Admin: 11/23/20 08:40 Dose: 2 mg Documented by: [id number] Admin: 11/22/20 20:58 Dose: 2 mg Documented by: [id number] Admin: 11/22/20 08:00 Dose: 2 mg Documented by: [id number] Admin: 11/21/20 22:27 Dose: 2 mg Documented by: [id number] Admin: 11/21/20 07:39 Dose: 2 mg Documented by: [id number] Insulin Glargine (Insulin Glargine Solostar 100 Units/Ml 3 Ml Pen) 7 units SQ QAM [facility] Stop: 12/22/20 09:14 Last Admin: 11/23/20 08:40 Dose: 7 units Documented by: [id number] Cosigned by: [id number] Admin: 11/22/20 09:38 Dose: 7 units Documented by: [id number] Cosigned by: [id number] Lansoprazole (Lansoprazole 30 Mg Soltab) [facility] [place] Stop: 12/21/20 08:59 Last Admin: 11/23/20 08:40 Dose: 30 mg Documented by: [id number] Admin: 11/22/20 08:01 Dose: 30 mg Documented by: [id number] Admin: 11/21/20 07:38 Dose: 30 mg Documented by: [id number] Levetiracetam (Levetiracetam Oral Soln 100mg/Ml) 750 mg GT BID@0800,1600 [facility] Stop: 12/21/20 07:59 Last Admin: 11/23/20 08:38 Dose: 750 mg Documented by: [id number] Admin: 11/22/20 16:03 Dose: 750 mg Documented by: [id number] Admin: 11/22/20 07:59 Dose: 750 mg Documented by: [id number] Admin: 11/21/20 16:05 Dose: 750 mg Documented by: [id number] Admin: 11/21/20 07:39 Dose: 750 mg Documented by: [id number] Miscellaneous (Fentanyl Patch Remove & Waste) 1 ea N/A Q72H [facility] Stop: 12/22/20 08:58 Last Admin: 11/22/20 09:38 Dose: 1 ea Documented by: [id number] Cosigned by: [id number] Miscellaneous (Check Fentanyl Patch Placement) 1 ea N/A QS [facility] Stop: 12/21/20 07:59 Last Admin: 11/23/20 08:38 Dose: 1 ea Documented by: [id number] Admin: 11/23/20 00:41 Dose: 1 ea Documented by: [id number] Admin: 11/22/20 16:02 Dose: 1 ea Documented by: [id number] Admin: 11/22/20 07:59 Dose: 1 ea Documented by: [id number] Admin: 11/22/20 00:34 Dose: 1 ea Documented by: [id number] Admin: 11/21/20 15:33 Dose: 1 ea Documented by: [id number] Admin: 11/21/20 07:39 Dose: 1 ea Documented by: [id number] Potassium Chloride (Potassium Chloride Pwd 20 Meq Pack) 20 meq GT QAM OFE Stop: 12/23/20 09:29 Last Admin: 11/23/20 10:57 Dose: 20 meq Documented by: [id number] Valproic Acid (Valproic Acid Soln 500 Mg/10 Ml Udc) 500 mg PEG BID OFE Stop: 12/21/20 08:59 Last Admin: 11/23/20 08:41 Dose: 500 mg Documented by: [id number] Admin: 11/22/20 20:58 Dose: 500 mg Documented by: [id number] Admin: 11/22/20 08:01 Dose: 500 mg Documented by: [id number] Admin: 11/21/20 22:27 Dose: 500 mg Documented by: [id number] Admin: 11/21/20 07:38 Dose: 500 mg Documented by: [id number] Discontinued Medications Acetaminophen (Acetaminophen 1000 Mg/100 Ml Iv) 1,000 mg IV NOW STA Stop: 11/20/20 21:33 Last Admin: 11/20/20 21:53 Dose: 1,000 mg Documented by: [id number] Sodium Chloride (Nss 1000ml) 1,000 mls @ 125 mls/hr IV .Q8H [facility] Stop: 11/21/20 05:29 Last Infusion: 11/21/20 02:37 Dose: 0 mls/hr Documented by: [id number] Admin: 11/20/20 23:37 Dose: 125 mls/hr Documented by: [id number] Piperacillin Sod/Tazobactam Sod (Zosyn) 4.5 gm in 120 mls @ 240 mls/hr IV NOW ONE Stop: 11/20/20 22:01 Last Infusion: 11/20/20 23:24 Dose: 0 mls/hr Documented by: [id number] Admin: 11/20/20 22:20 Dose: 240 mls/hr Documented by: [id number] Vancomycin HCl 1,500 mg/ (Sodium Chloride) 530 mls @ 200 mls/hr IV NOW ONE Stop: 11/21/20 00:10 Last Infusion: 11/21/20 02:37 Dose: 0 mls/hr Documented by: [id number] Admin: 11/20/20 23:27 Dose: 200 mls/hr Documented by: [id number] Sodium Chloride (Nss 1000ml) 500 mls @ 999 mls/hr IV .Q31M ONE Stop: 11/20/20 22:05 Last Infusion: 11/21/20 00:30 Dose: 0 mls/hr Documented by: [id number] Admin: 11/20/20 23:27 Dose: 999 mls/hr Documented by: [id number] Sodium Chloride (Nss 1000ml) 1,000 mls @ 999 mls/hr IV .Q1H1M ONE Stop: 11/21/20 00:45 Last Admin: 11/21/20 00:53 Dose: Not Given Documented by: [id number] Albumin Human (Albumin 25%) 12.5 gm in 50 mls @ 50 mls/hr IV Q1H OFE Stop: 11/21/20 04:23 Last Infusion: 11/21/20 05:41 Dose: 0 mls/hr Documented by: [id number] Admin: 11/21/20 04:43 Dose: 50 mls/hr Documented by: [id number] Infusion: 11/21/20 04:43 Dose: 50 mls/hr Documented by: [id number] Admin: 11/21/20 03:52 Dose: 50 mls/hr Documented by: [id number] Infusion: 11/21/20 02:36 Dose: 0 mls/hr Documented by: [id number] Admin: 11/21/20 01:13 Dose: 50 mls/hr Documented by: [id number] Infusion: 11/21/20 01:13 Dose: 50 mls/hr Documented by: [id number] Admin: 11/21/20 00:36 Dose: 50 mls/hr Documented by: [id number] Lactated Ringer's (Lr) 1,000 mls @ 999 mls/hr IV .Q1H1M ONE Stop: 11/21/20 01:24 Last Infusion: 11/21/20 02:36 Dose: 0 mls/hr Documented by: [id number] Admin: 11/21/20 00:30 Dose: 999 mls/hr Documented by: [id number] Lactated Ringer's (Lr) 500 mls @ 999 mls/hr IV .Q31M ONE Stop: 11/21/20 00:54 Last Infusion: 11/21/20 01:13 Dose: 0 mls/hr Documented by: [id number] Admin: 11/21/20 00:37 Dose: 999 mls/hr Documented by: [id number] Vancomycin HCl 1,250 mg/ (Sodium Chloride) 275 mls @ 200 mls/hr IV Q12H OFE; Protocol Stop: 11/28/20 09:59 Last Infusion: 11/22/20 12:50 Dose: 0 mls/hr Documented by: [id number] Admin: 11/22/20 11:16 Dose: 200 mls/hr Documented by: [id number] Infusion: 11/22/20 00:20 Dose: 0 mls/hr Documented by: [id number] Admin: 11/21/20 22:27 Dose: 200 mls/hr Documented by: [id number] Infusion: 11/21/20 11:10 Dose: 0 mls/hr Documented by: [id number] Admin: 11/21/20 09:39 Dose: 200 mls/hr Documented by: [id number] Lactated Ringer's (Lr) 1,000 mls @ 100 mls/hr IV .Q10H OFE Stop: 11/21/20 22:44 Last Infusion: 11/22/20 00:20 Dose: 0 mls/hr Documented by: [id number] Admin: 11/21/20 13:54 Dose: 100 mls/hr Documented by: [id number] Infusion: 11/21/20 13:51 Dose: 100 mls/hr Documented by: [id number] Admin: 11/21/20 03:51 Dose: 100 mls/hr Documented by: [id number] Metronidazole (Flagyl) 500 mg in 100 mls @ 100 mls/hr IV Q6H OFE Stop: 11/28/20 04:59 Last Infusion: 11/22/20 14:00 Dose: 0 mls/hr Documented by: [id number] Admin: 11/22/20 12:50 Dose: 100 mls/hr Documented by: [id number] Infusion: 11/22/20 05:22 Dose: 0 mls/hr Documented by: [id number] Admin: 11/22/20 04:18 Dose: 100 mls/hr Documented by: [id number] Infusion: 11/21/20 23:40 Dose: 0 mls/hr Documented by: [id number] Admin: 11/21/20 22:27 Dose: 100 mls/hr Documented by: [id number] Infusion: 11/21/20 17:10 Dose: 0 mls/hr Documented by: [id number] Admin: 11/21/20 16:05 Dose: 100 mls/hr Documented by: [id number] Infusion: 11/21/20 12:13 Dose: 0 mls/hr Documented by: [id number] Admin: 11/21/20 11:06 Dose: 100 mls/hr Documented by: [id number] Infusion: 11/21/20 06:49 Dose: 0 mls/hr Documented by: [id number] Admin: 11/21/20 05:41 Dose: 100 mls/hr Documented by: [id number] Tobramycin Sulfate 500 mg/ (Dextrose) 112.5 mls @ 100 mls/hr IV TODAY@0600 ONE Stop: 11/21/20 07:07 Last Infusion: 11/21/20 07:16 Dose: 0 mls/hr Documented by: [id number] Admin: 11/21/20 05:41 Dose: 100 mls/hr Documented by: [id number] Lactated Ringer's (Lr) 1,000 mls @ 999 mls/hr IV .Q1H1M ONE Stop: 11/21/20 06:53 Last Infusion: 11/21/20 07:15 Dose: 0 mls/hr Documented by: [id number] Admin: 11/21/20 06:05 Dose: 999 mls/hr Documented by: [id number] Vancomycin HCl 1,000 mg/ (Sodium Chloride) 270 mls @ 200 mls/hr IV Q12H OFE; Protocol Stop: 11/30/20 00:00 Last Infusion: 11/23/20 15:32 Dose: 0 mls/hr Documented by: [id number] Admin: 11/23/20 12:37 Dose: 200 mls/hr Documented by: [id number] Infusion: 11/23/20 02:31 Dose: 0 mls/hr Documented by: [id number] Admin: 11/23/20 00:47 Dose: 200 mls/hr Documented by: [id number] Potassium Phosphate 9 mmol/ (Sodium Chloride) 253 mls @ 88 mls/hr IV ONE ONE Stop: 11/23/20 12:37 Last Infusion: 05/26/21 14:14 Dose: 0 mls/hr Documented by: [id number] Admin: 11/23/20 10:57 Dose: 88 mls/hr Documented by: [id number] Insulin Glargine (Insulin Glargine Solostar 100 Units/Ml 3 Ml Pen) 14 units SQ QAM OFE Stop: 12/21/20 08:59 Last Admin: 11/22/20 11:17 Dose: Not Given Documented by: [id number] Admin: 11/21/20 08:35 Dose: 14 units Documented by: [id number] Cosigned by: [id number] Ondansetron HCl (Ondansetron Inj 2 Mg/Ml 2 Ml Vial) 4 mg IV NOW STA Stop: 11/20/20 21:36 Last Admin: 11/20/20 21:53 Dose: 4 mg Documented by: [id number] Description This is a 21 electrode EEG with a single channel dedicated to limited EKG. The electrodes were placed in accordance with the International 10-20 system. History: h/o epilepsy, sepsis Rx: keppra/depakote Start/Stop: 12:40pm/1pm Attending reading: Juanis Oliveira EEG Description: EEG background: Background was intermixed 6-7 Hz theta slowing with 8 Hz alpha rhythm. A well formed 7-8 Hz posterior dominant rhythm was observed. The EEG is continuous. There is variability and reactivity present. Activation and reactivity: Photic stimulation was not performed. Hyperventilation was not performed (patient has a trach/does not follow commands). Sleep: No sleep architecture noted Epileptiform discharges: No epileptiform discharges were observed. Rhythmic and periodic patterns: None Seizures: None Impression: This was a mildly abnormal EEG given generalized slowing c/w known history of dementia. No seizures or epileptiform discharges were seen. [facility] Procedure Codes Indication for Procedure (1) AMS (altered mental status): (2) Dementia: (3) Seizure disorder: Neurology Neurology: [id number] EEG include record awake & drowsy
[2020-11-23] MEDS: CEFTAROLINE FOSAMIL ACETATE 600 MG in SODIUM CHLORIDE 0.9% 250 ML IV SCH (18:41)
[2020-11-23] MEDS: FIBERSOURCE HN 1.2 CAL 1000 ML BAG GT PRN (19:30)
[2020-11-24] MEDS: CHECK fentaNYL PATCH PLACEMENT SCH ×3 (00:46→16:26)
[2020-11-24] MEDS ORDERED: PHARMACY GLYCEMIC MGMT CONSULT PRN (00:47)
[2020-11-24] MEDS: INSULIN ASPART 100 UNITS/ML 3 ML PEN SC SCH ×6 (01:13→20:27)
[2020-11-24] MEDS ORDERED: VANCOMYCIN HCL 750 MG in SODIUM CHLORIDE 0.9% 250 ML IV SCH (04:00)
[2020-11-24] MEDS: CEFTAROLINE FOSAMIL ACETATE 600 MG in SODIUM CHLORIDE 0.9% 250 ML IV SCH ×2 (05:58→18:08)
[2020-11-24 06:59] LABS: Creatinine Clr Calc Pharmacy 145.7 ml/min; Est GFR (African American) 128.5 ml/min; Est GFR (Non-African American) 110.9 ml/min
[2020-11-24] MEDS: INSULIN GLARGINE SOLOSTAR 100 UNITS/ML 3 ML PEN SQ SCH (08:27)
[2020-11-24] MEDS: HALOPERIDOL 2 MG/1 ML UDP PO SCH ×2 (08:30→20:27)
[2020-11-24] MEDS: guaiFENesin SUGAR FREE 200 MG/10 ML UDC GT SCH ×2 (08:30→20:27)
[2020-11-24] MEDS: VALPROIC ACID SOLN 500 MG/10 ML UDC PEG SCH ×2 (08:30→20:27)
[2020-11-24] MEDS: levETIRAcetam ORAL SOLN 100MG/ML GT SCH ×2 (08:31→16:26)
[2020-11-24] MEDS: ASPIRIN 81 MG CHEW PEG SCH (08:31)
[2020-11-24] MEDS: POTASSIUM CHLORIDE PWD 20 MEQ PACK GT SCH (08:32)
[2020-11-24] MEDS: LANSOPRAZOLE 30 MG SOLTAB PEG SCH (08:32)
[2020-11-24] MEDS: ENOXAPARIN INJ 40 MG/0.4 ML SYR SQ SCH (08:32)
--- NOTE | 2020-11-24 09:18 | Pharmacy Report ---
Pharmacy Glycemic Short Note 2 - Date of Service November 24, 2020 - Glycemic Short BSG Results (Last 24 hours): 11/23/20 11/23/20 11/24/20 11:16 18:10 00:06 POC Glucose 165 H 170 H 223 H 11/24/20 11/24/20 04:18 08:05 POC Glucose 141 H 132 H OUTPATIENT ANTIDIABETIC REGIMEN: * Lantus 14 units SQ AM * Humalog SSI * A1c = 6.4% on 11/23/20 ASSESSMENT: * 69yo T2DM male adm for aspiration PNA * Outpatient control of DM is excellent per A1c * Pt with below goal range BSGs a few days ago therefore outpatient Lantus dose decreased by 50% * Pt with rebound hyperglycemia secondary to continuous tube feedings without CHO coverage ordered * Will start NovoLog Q4hrs with CF/CR to cover CHO in tube feedings and titrate based on BSG trends. PLAN FOR INPATIENT GLYCEMIC CONTROL: * Basal insulin * Continue Lantus 7 units SQ QAM * Bolus insulin * NovoLog per scale Q4hrs * Goal Range: Low 110 mg/dL - High 140 mg/dL * Correction Factor: 25 mg/dL/unit * Nutritional / Prandial insulin per carb ratio of 1 unit per 8 grams CHO consumed PLAN FOR DISCHARGE: * A1c is in goal range for age/co-morbidities. No changes needed to outpatient regimen unless patient is experiencing hypoglycemia
[2020-11-24] MEDS: FIBERSOURCE HN 1.2 CAL 1000 ML BAG GT PRN (11:58)
--- NOTE | 2020-11-24 12:04 | Cardiology Consultation ---
Date of Consultation November 24, 2020 Assessment & Plan (1) MRSA bacteremia: -3/3 blood cultures positive for MRSA. -no vegetation seen on transthoracic echocardiogram. -do not feel this patient is an appropriate candidate for a BRITTNEY based on his numerous comorbidities. (2) Severe aortic stenosis: -severe aortic stenosis noted on current echocardiogram. -not a candidate for valve replacement surgery or TAVR. (3) Hypertension: -adequate control on current regimen. History of Present Illness Attending Physician: Vinny Fenton MD History of Present Illness Mr. Errol Hinojosa is a 69-year-old male admitted on November 20 with fever and presumed aspiration pneumonia. The patient was found to have MRSA bacteremia in the face of severe aortic stenosis. This consultation was ordered to consider a transesophageal echocardiogram. The history is obtained from the chart as the patient is nonverbal. On the day of presentation, the patient was witnessed to aspirate on 2 separate occasions. He began to deteriorate and was found to have a temperature of 101 F. He was sent to the emergency room for further care. Thus far, he has had 3 blood cultures positive for MRSA. These were all performed on November 20. An echocardiogram performed on November 21 noted normal left ventricular systolic function, severe aortic stenosis and moderate mitral regurgitation. There were no obvious valvular vegetations. This was unchanged from study performed on January 05, 2020. The patient was seen in a virtual visit from Infectious Diseases at [facility]. A transesophageal echocardiogram was recommended. The patient has a history of Alzheimer's dementia and a schizoaffective disorder. He suffered a large anterior cerebral artery is CVA which has left him with right-sided weakness, aphasia, seizure disorder, and post stroke spasticity. Currently, patient is resting comfortably in bed without any signs of distress. Past medical and surgical history 1. Hypertension 2. Hypercholesterolemia 3. Severe aortic stenosis 4. Moderate mitral regurgitation 5. Diabetes mellitus 6. GERD 7. Hiatal hernia 8. Gout 9. 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 Resultant right-sided weakness 12. Resultant aphasia 13. 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 Alzheimer's dementia 16. Schizoaffective disorder 17. COVID pneumonia-January 03 through the 2019 18. Resultant tracheostomy 19. Resultant PEG tube 20. Chronic renal failure 21. Nephrolithiasis Social history Resident at the [place] No tobacco or alcohol Family history Unobtainable Review of systems Unobtainable Allergies Allergy/AdvReac Type Severity Reaction Status Date / Time No Known Allergies Allergy Verified 11/20/20 21:40 Home Medications Medication Instructions Recorded Confirmed Type aspirin 81 mg FEEDING TUBE DAILY #90 tab 01/25/20 11/20/20 Rx fentanyl 12 mcg TRANSDERMAL Q72H #10 patch 01/25/20 11/20/20 Rx acetaminophen [Tylenol] 650 mg FEEDING TUBE Q6 PRN 05/19/20 11/20/20 History ascorbic acid (vitamin C) [Vitamin 500 mg FEEDING TUBE QAM 05/19/20 11/20/20 History C] cholecalciferol (vitamin D3) 125 mcg FEEDING TUBE QAM 05/19/20 11/20/20 History [Vitamin D3] ferrous sulfate 300 mg FEEDING TUBE BID #0 05/19/20 11/20/20 History guaifenesin 200 mg FEEDING TUBE BID #0 05/19/20 11/20/20 History insulin lispro 1 sliding scale dose SUBCUT 05/19/20 11/20/20 History USEASDIRECTD protein supplement 30 ea FEEDING TUBE BID #0 05/19/20 11/20/20 History tramadol 50 mg FEEDING TUBE Q4 PRN 05/19/20 11/20/20 History valproic acid (as sodium salt) 500 mg FEEDING TUBE BID #0 05/19/20 11/20/20 History esomeprazole magnesium 40 mg G-TUBE QAM 08/16/20 11/20/20 History haloperidol lactate 2 mg PO Q12H 08/16/20 11/20/20 History levetiracetam [Keppra] 750 mg FEEDING TUBE BID 08/16/20 11/20/20 History polyethylene glycol 3350 [Miralax] 17 g FEEDING TUBE QAM 08/16/20 11/20/20 History Lantus Solostar U-100 Insulin 14 unit SUBCUT QAM 11/20/20 11/20/20 History Patient History Medical History Alzheimer disease Chronic gout Chronic prescription opiate use Dementia Diabetes Gastrointestinal hemorrhage GERD (gastroesophageal reflux disease) Goals of care, counseling/discussion Hypertension Muscle weakness Peripheral vascular disease Pneumonia due to COVID-19 virus Schizoaffective disorder, chronic condition Seizure disorder Stroke Tachypnea Urinary tract infection Surgical History Status post insertion of percutaneous endoscopic gastrostomy (PEG) tube Tracheostomy in place Family History Other No significant family history Social History Smoking Status: Unknown if ever smoked Do You Dip or Chew Tobacco: No; Tobacco Cessation Education Requested by Patient: No Hx Alcohol Use: No Hx Substance Use: No Communication Ability: Unable Audiometric Technician Required: No Beliefs That Will Affect Care: None marital status: Unknown Current Living Situation: Senior Care Other Information That Helps Us Care for You: No Feels Safe at Home: Yes Assistive Devices: Oxygen - Continuous Physical Exam Physical Exam: In general this is a cachectic male lying supine in bed in no distress. HEENT exam is negative. Neck is supple. Delayed carotid upstrokes. No obvious carotid bruits. Tracheostomy tube in place. Cardiovascular exam reveals a regular rhythm with a 2/6 crescendo decrescendo systolic murmur heard loudest at the base. Lungs are clear anteriorly. Abdomen is soft without bruits. Peg tube in place. Extremities reveal intact radial artery pulses sharon aterally. There is trace pretibial edema. Results & Data ([facility]) Vital Signs (Past 12 Hours) Vital Signs Temp Pulse Pulse Resp BP Pulse Ox 11/24/20 11:22 36.7 C 72 16 132/74 98 11/24/20 07:53 36.7 C 80 22 149/72 H 100 11/24/20 07:00 86 11/24/20 04:22 36.5 C 85 20 150/86 H 96 11/24/20 01:24 79 Laboratory Results CBC notes hemoglobin of 11.3, hematocrit 35.9, white count 7.4, and platelet count [id number]. Electrolytes note a sodium of 136, potassium 3.3, chloride 104, bicarb 26, BUN 19, creatinine 0.53, and glucose of 123. Troponin I level is normal at 0.018. TSH is normal at 1.5. Three blood cultures from November 20 have grown out MRSA. Diagnostic Findings EKG notes sinus rhythm with PVCs, left axis deviation, and old inferior myocardial infarction pattern. Echocardiogram is described above. Chest x-ray notes cardiomegaly with diminished lung volumes. There is a left base infiltrate. PG Care Time/CCT Total # of Minutes Spent Total Time Spent with Patient: Total time spent is greater than 50% in coordination of care (as documented) at patient's floor/unit and/or counseling patient: Coding Level of Care Code 92171 Initial Inpt Care Lvl 3 Diagnoses MRSA bacteremia R78.81; B95.62 Severe aortic stenosis I35.0 Hypertension I10
[2020-11-24] MEDS ORDERED: VANCOMYCIN TROUGH ONE (15:30)
--- NOTE | 2020-11-24 19:19 | Hospitalist Progress Note ---
Date of Service November 24, 2020 Assessment & Plan (1) MRSA bacteremia: Suspected primary source pneumonia since previous sputum culture MRSA positive. No areas of cellulitis. Repeat blood cultures pending - will need ultrasound-guided IV, PICC or midline once negative after 48 hours TTE negative for vegetation. Discussed with Dr Byrd and advised against BRITTNEY Continue Ceftaroline - duration 6 weeks to be determined by infectious disease (2) Aspiration pneumonitis: Procalcitonin negative. Tobramycin and metronidazole discontinued yesterday. Repeat chest x-ray with minimal improvement airspace opacities at left base. Notably sputum growing gram-negative bacilli. Suspect he is colonized with Pseudomonas and illness getting worse more continue to hold tobramycin at the current time. Continue PEG feeds with elevate HOB > 45 degrees at all times (3) Acute encephalopathy: Appears to be back to baseline. (4) Diabetes: Repeat HbA1c 6.4. Pharmacy consulted for basal bolus insulin. 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 Continue 2 mg vis PEG twice daily (6) H/O: stroke with residual effects: Continue aspirin 81 mg via PEG daily (7) Schizoaffective disorder, chronic condition: Continue haloperidol 2 mg p.o. twice daily (8) Severe aortic stenosis: No sign of heart failure at this time. Discontinue IV fluids for PEG feeds. (9) Seizure disorder: Appreciate neurology review. Recommend continuation of Keppra and valproic acid at current levels. (10) Chronic prescription opiate use: Continue fentanyl 12 mcg patch (11) Chronic gout: No acute flare. Reportedly this is why he is on chronic opiates. Uric acid previously normal. Not on allopurinol. (12) Presence of externally removable percutaneous endoscopic gastrostomy (PEG) tube: Appreciate dietary consult. Start PEG feeds today. (13) Tracheostomy dependent: Appreciate respiratory management of this. (14) DVT prophylaxis: Continue Lovenox 40 mg SQ daily Admission and Anticipated Discharge Date Admission Date: November 21, 2020 Subjective Patient appears the same today. Eyes open but no tracking. No verbal response. Localizes pain, does not obey commands. Review of Systems Review of Systems: Unobtainable due to cognitive status Physical Exam Constitutional: + ill appearing and + disheveled; no acute distress Eyes: PERRL Neck: + tracheostomy present Respiratory: normal respiratory effort; no retractions, does not use accessory muscles, no cough, + not able to speak in complete sentence and no stridor Auscultation: + rales (Coarse bilaterally); no wheezes Cardiovascular: Rate/Rhythm: regular rate and regular rhythm Heart Sounds: + murmur (4/6 CATHY throughout) Gastrointestinal (Abdomen): Inspection/Auscultation: abdomen normal to inspection and normal bowel sounds; abdomen not distended Neurologic: PERRL, EOMI, accommodation nl, no face palsy, no dysarthria Motor/Sensory: + tremor (Occasional resting bilateral) Cranial Nerves: PERRL Psychiatric: A+Ox3, euthymic affect Orientation: + not alert, + not oriented x 3, + not oriented to person, + not oriented to place and + not oriented to time Results & Data Results & Data ([facility]) Vital Signs (Past 12 Hours) Vital Signs Temp Pulse Pulse Resp BP Pulse Ox 11/24/20 15:21 36.6 C 80 18 117/74 95 11/24/20 15:00 77 11/24/20 11:22 36.7 C 72 16 132/74 98 11/24/20 07:53 36.7 C 80 22 149/72 H 100 PG Care Time/CCT Total # of Minutes Spent Total Time Spent with Patient: Total time spent is greater than 50% in coordination of care (as documented) at patient's floor/unit and/or counseling patient: Coding Level of Care Code 00608 Subseq Hosp Care Lvl 2 Diagnoses MRSA bacteremia R78.81; B95.62 Aspiration pneumonitis J69.0 Acute encephalopathy G93.40 Diabetes E11.9; Z79.4 Diabetes mellitus complication status: without complication Diabetes mellitus residential insulin use: with residential use Diabetes mellitus type: type 2 Extrapyramidal and movement disorder G25.9 H/O: stroke with residual effects I69.30 Schizoaffective disorder, chronic condition F25.8 Severe aortic stenosis I35.0 Seizure disorder G40.909 Chronic prescription opiate use Z79.891 Chronic gout [id number].[id number] Presence of externally removable percutaneous endoscopic gastrostomy (PEG) tube Z93.1 Tracheostomy dependent Z93.0 DVT prophylaxis Z29.9 (1) Diabetes Diabetes mellitus complication status: without complication Diabetes mellitus 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
[2020-11-25] MEDS: INSULIN ASPART 100 UNITS/ML 3 ML PEN SC SCH ×6 (00:15→21:10)
[2020-11-25] MEDS: CHECK fentaNYL PATCH PLACEMENT SCH ×4 (00:17→23:16)
[2020-11-25] MEDS: FIBERSOURCE HN 1.2 CAL 1000 ML BAG GT PRN ×2 (03:44→20:14)
[2020-11-25] MEDS: CEFTAROLINE FOSAMIL ACETATE 600 MG in SODIUM CHLORIDE 0.9% 250 ML IV SCH ×2 (06:37→19:32)
--- NOTE | 2020-11-25 10:21 | Hospitalist Progress Note ---
Date of Service November 25, 2020 Assessment & Plan (1) MRSA bacteremia: Suspected primary source pneumonia since previous sputum culture MRSA positive. No areas of cellulitis. TTE negative for vegetation. Agree with cardiology decision Blood cultures negative after 48 hours. PICC line consent gained from his brother over the phone and placed in chart. PICC line ordered. Continue Ceftaroline - total duration 4 weeks from 11/23 per infectious disease consult. (2) Aspiration pneumonitis: Procalcitonin negative. Chest x-ray improving. Sputum Pseudomonas however suspect this is a colonization and do not feel we need to cover this with antibiotics unless he was deteriorate, tobramycin given on addition discontinued after 1 dose. Continue PEG feeds with elevate HOB > 45 degrees at all times (3) Acute encephalopathy: Appears to be back to baseline. (4) Diabetes: Repeat HbA1c 6.4. Pharmacy consulted for basal bolus insulin. Appears adequately controlled at the current time. 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 Continue 2 mg vis PEG twice daily (6) H/O: stroke with residual effects: Continue aspirin 81 mg via PEG daily (7) Schizoaffective disorder, chronic condition: Continue haloperidol 2 mg p.o. twice daily (8) Severe aortic stenosis: No sign of heart failure at this time. Discontinued IV fluids for PEG feeds. (9) Seizure disorder: Appreciate neurology review. Recommend continuation of Keppra and valproic acid at current levels. (10) Chronic prescription opiate use: Continue fentanyl 12 mcg patch (11) Chronic gout: No acute flare. Reportedly this is why he is on chronic opiates. Uric acid previously normal. Not on allopurinol. (12) Presence of externally removable percutaneous endoscopic gastrostomy (PEG) tube: Appreciate dietary consult. Continue PEG feeds today. Q2D PO/Mg (13) Tracheostomy dependent: Appreciate respiratory management of this. (14) DVT prophylaxis: Continue Lovenox 40 mg SQ daily Admission and Anticipated Discharge Date Admission Date: November 21, 2020 Subjective Patient appears the same today. Eyes open but no tracking. No verbal response. Localizes pain, does not obey commands. Review of Systems Review of Systems: Unobtainable due to cognitive status Physical Exam Constitutional: + ill appearing and + disheveled; no acute distress Eyes: + anicteric sclerae; normal pupil size Neck: + tracheostomy present Respiratory: normal respiratory effort; no retractions, does not use accessory muscles, no cough, + not able to speak in complete sentence and no stridor Auscultation: + rales (Coarse bilaterally); no wheezes Cardiovascular: Rate/Rhythm: regular rate and regular rhythm Heart Sounds: + murmur (4/6 CATHY throughout) Gastrointestinal (Abdomen): Inspection/Auscultation: abdomen normal to inspection and normal bowel sounds; abdomen not distended Percussion/Palpation: abdomen soft; abdomen nontender Neurologic: Motor/Sensory: + tremor (Occasional resting bilateral) Psychiatric: Orientation: alert; + not oriented x 3, + not oriented to person and + not oriented to place Results & Data Results & Data ([facility]) Vital Signs (Past 12 Hours) Vital Signs Temp Pulse Pulse Resp BP Pulse Ox 11/25/20 07:31 36.3 C L 69 20 155/93 H 97 11/25/20 03:18 36.7 C 79 20 152/89 H 98 11/24/20 23:41 79 11/24/20 23:31 36.8 C 60 20 133/82 96 PG Care Time/CCT Total # of Minutes Spent Total Time Spent with Patient: Total time spent is greater than 50% in coordination of care (as documented) at patient's floor/unit and/or counseling patient: Coding Level of Care Code 41250 Subseq Hosp Care Lvl 2 Diagnoses MRSA bacteremia R78.81; B95.62 Aspiration pneumonitis J69.0 Acute encephalopathy G93.40 Diabetes E11.9; Z79.4 Diabetes mellitus complication status: without complication Diabetes mellitus jail insulin use: with jail use Diabetes mellitus type: type 2 Extrapyramidal and movement disorder G25.9 H/O: stroke with residual effects I69.30 Schizoaffective disorder, chronic condition F25.8 Severe aortic stenosis I35.0 Seizure disorder G40.909 Chronic prescription opiate use Z79.891 Chronic gout M1A.9XX0 Presence of externally removable percutaneous endoscopic gastrostomy (PEG) tube Z93.1 Tracheostomy dependent Z93.0 DVT prophylaxis Z29.9 (1) Diabetes Diabetes mellitus complication status: without complication 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
[2020-11-25] MEDS: INSULIN GLARGINE SOLOSTAR 100 UNITS/ML 3 ML PEN SQ SCH (10:33)
[2020-11-25] MEDS: levETIRAcetam ORAL SOLN 100MG/ML GT SCH ×2 (10:37→19:33)
[2020-11-25] MEDS: ASPIRIN 81 MG CHEW PEG SCH (10:38)
[2020-11-25] MEDS: LANSOPRAZOLE 30 MG SOLTAB PEG SCH (10:39)
[2020-11-25] MEDS: ENOXAPARIN INJ 40 MG/0.4 ML SYR SQ SCH (10:39)
[2020-11-25] MEDS: guaiFENesin SUGAR FREE 200 MG/10 ML UDC GT SCH ×2 (10:40→21:10)
[2020-11-25] MEDS: VALPROIC ACID SOLN 500 MG/10 ML UDC PEG SCH ×2 (10:40→21:10)
[2020-11-25] MEDS: POTASSIUM CHLORIDE PWD 20 MEQ PACK GT SCH (10:40)
[2020-11-25] MEDS: HALOPERIDOL 2 MG/1 ML UDP PO SCH (10:40)
[2020-11-25] MEDS: fentaNYL 12 MCG/HR TDSY TD SCH (10:56)
--- NOTE | 2020-11-25 11:19 | Pharmacy Report ---
Pharmacy Glycemic Short Note 2 - Date of Service November 25, 2020 - Glycemic Short BSG Results (Last 24 hours): 11/24/20 11/24/20 11/24/20 12:06 16:21 20:18 POC Glucose 182 H 158 H 156 H 11/25/20 11/25/20 11/25/20 00:09 04:50 08:21 POC Glucose 177 H 198 H 183 H OUTPATIENT ANTIDIABETIC REGIMEN: * Lantus 14 units SQ AM * Humalog SSI * A1c = 6.4% on 11/23/20 ASSESSMENT: 11/25 * Pt has received 49 units of insulin over the past 24hrs * 7 units of basal with Lantus * 42 units of bolus with NovoLog * BSGs [phone]- 183mg/dl * Regimen is heavily weighted towards prandial/correctional insulin; will increase Lantus back to outpatient dosing of 14 units to balance regimen. * Continuous tube feeds continue with Fibersource @ 70ml/hr. Will tighten CR if BSGs dont improve with increased Lantus dosing. 11/24 * 69yo T2DM male adm for aspiration PNA * Outpatient control of DM is excellent per A1c * Pt with below goal range BSGs a few days ago therefore outpatient Lantus dose decreased by 50% * Pt with rebound hyperglycemia secondary to continuous tube feedings without CHO coverage ordered * Will start NovoLog Q4hrs with CF/CR to cover CHO in tube feedings and titrate based on BSG trends. PLAN FOR INPATIENT GLYCEMIC CONTROL: * Basal insulin * Increase Lantus 14 units SQ QAM (outpatient dosing) * Bolus insulin: no change * NovoLog per scale Q4hrs * Goal Range: Low 110 mg/dL - High 140 mg/dL * Correction Factor: 25 mg/dL/unit * Nutritional / Prandial insulin per carb ratio of 1 unit per 8 grams CHO consumed PLAN FOR DISCHARGE: * A1c is in goal range for age/co-morbidities. No changes needed to outpatient regimen unless patient is experiencing hypoglycemia
[2020-11-25 13:19] LABS: Albumin Level 2.1 gm/dl (3.4-5.0); Calcium 8.7 mg/dl (8.5-10.1); Creatinine Clr Calc Pharmacy 134.5 ml/min; Est GFR (African American) 124.3 ml/min; Est GFR (Non-African American) 107.3 ml/min; Potassium 4.1 mmol/L (3.5-5.1)
[2020-11-25 13:25] LABS: Albumin Globulin Ratio 0.5 (0.9-2); Bilirubin,Total 0.3 mg/dl (0.2-1); Globulin 4.1 gm/dl (2.5-4.0); Total Protein 6.2 gm/dl (6.4-8.2)
[2020-11-25 13:35] LABS: Basophils # (auto) 0.02 K/uL (0-0.2); Basophils % (auto) 0.2 %; Eosinophils # (auto) 0.14 K/uL (0-0.5); Eosinophils % (auto) 1.6 %; Hematocrit (blood only) 37.1 % (42-52); Hemoglobin 11.9 g/dL (14.0-18.0); Immature Granulocytes # (auto) 0.15 K/uL (0.00-0.02); Immature Granulocytes % (auto) 1.7 %; Lymphocytes # (auto) 1.81 K/uL (1.2-3.4); Lymphocytes % (auto) 20.8 %; Mean Corpuscular Hemoglobin 27.7 pg (25-34); Mean Corpuscular Hgb Conc 32.1 g/dL (32-36); Mean Corpuscular Volume 86.5 fL (80-100); Mean Platelet Volume 10.7 fL (7.4-10.4); Monocytes # (auto) 0.78 K/uL (0.11-0.59); Neutrophils % (auto) 66.7 %; Platelet Count 192 K/uL (130-400); RDW Coefficient of Variation 15.8 % (11.5-14.5); Red Blood Count 4.29 M/uL (4.7-6.1)
[2020-11-25] MEDS ORDERED: SODIUM CHLORIDE 0.9% 1000ML 1,000 ML IV SCH (19:30)
[2020-11-25] MEDS: FERROUS SULFATE 325 MG/7.4 ML UDP PEG SCH (21:10)
[2020-11-25] MEDS: HALOPERIDOL 2 MG/1 ML UDP GT SCH (21:10)
[2020-11-26] MEDS: INSULIN ASPART 100 UNITS/ML 3 ML PEN SC SCH ×6 (00:40→20:00)
[2020-11-26 00:41] LABS: Levetiracetam Keppra 21.5 mcg/mL (12.0-46.0); Valproic Acid, Free 13.5 mg/L (4.8-17.3); Valproic Acid, Total 38.4 mg/L (50.0-100.0)
[2020-11-26] MEDS: CEFTAROLINE FOSAMIL ACETATE 600 MG in SODIUM CHLORIDE 0.9% 250 ML IV SCH ×2 (06:04→17:45)
[2020-11-26 06:22] LABS: Basophils # (auto) 0.02 K/uL (0-0.2); Basophils % (auto) 0.2 %; Eosinophils # (auto) 0.23 K/uL (0-0.5); Eosinophils % (auto) 2.5 %; Hematocrit (blood only) 36.3 % (42-52); Hemoglobin 11.5 g/dL (14.0-18.0); Immature Granulocytes # (auto) 0.18 K/uL (0.00-0.02); Immature Granulocytes % (auto) 1.9 %; Lymphocytes # (auto) 1.81 K/uL (1.2-3.4); Lymphocytes % (auto) 19.4 %; Mean Corpuscular Hemoglobin 27.9 pg (25-34); Mean Corpuscular Hgb Conc 31.7 g/dL (32-36); Mean Corpuscular Volume 88.1 fL (80-100); Mean Platelet Volume 9.6 fL (7.4-10.4); Monocytes # (auto) 0.69 K/uL (0.11-0.59); Monocytes % (auto) 7.4 %; Neutrophils # (auto) 6.42 K/uL (1.4-6.5); Neutrophils % (auto) 68.6 %; Platelet Count 228 K/uL (130-400); RDW Coefficient of Variation 15.9 % (11.5-14.5); RDW Standard Deviation 51.1 fL (36.4-46.3); Red Blood Count 4.12 M/uL (4.7-6.1); White Blood Count 9.35 K/uL (4.8-10.8)
[2020-11-26 06:55] LABS: Albumin Level 2.1 gm/dl (3.4-5.0); BUN Creatinine Ratio 21.2 (10-20); Calcium 8.6 mg/dl (8.5-10.1); Est GFR (African American) 123.4 ml/min; Est GFR (Non-African American) 106.5 ml/min; Magnesium 1.8 mg/dl (1.8-2.4); Potassium 3.8 mmol/L (3.5-5.1)
[2020-11-26 06:58] LABS: Albumin Globulin Ratio 0.5 (0.9-2); Bilirubin,Total 0.4 mg/dl (0.2-1); Globulin 4.1 gm/dl (2.5-4.0); Total Protein 6.2 gm/dl (6.4-8.2)
[2020-11-26] MEDS: CHECK fentaNYL PATCH PLACEMENT SCH ×2 (08:43→16:03)
[2020-11-26] MEDS: levETIRAcetam ORAL SOLN 100MG/ML GT SCH ×2 (08:52→16:03)
[2020-11-26] MEDS: guaiFENesin SUGAR FREE 200 MG/10 ML UDC GT SCH ×2 (08:56→20:31)
[2020-11-26] MEDS: LANSOPRAZOLE 30 MG SOLTAB PEG SCH (08:58)
[2020-11-26] MEDS: POTASSIUM CHLORIDE PWD 20 MEQ PACK GT SCH (09:00)
[2020-11-26] MEDS: HALOPERIDOL 2 MG/1 ML UDP GT SCH ×2 (09:01→20:31)
[2020-11-26] MEDS: FERROUS SULFATE 325 MG/7.4 ML UDP PEG SCH ×2 (09:01→20:34)
[2020-11-26] MEDS: ENOXAPARIN INJ 40 MG/0.4 ML SYR SQ SCH (09:02)
[2020-11-26] MEDS: ASPIRIN 81 MG CHEW PEG SCH (09:42)
[2020-11-26] MEDS: ASCORBIC ACID 500 MG TAB GT SCH (09:42)
[2020-11-26] MEDS: INSULIN GLARGINE SOLOSTAR 100 UNITS/ML 3 ML PEN SQ SCH (09:42)
[2020-11-26] MEDS: CHOLECALCIFEROL 1,000 UNITS 25 MCG TAB GT SCH (09:43)
[2020-11-26] MEDS: VALPROIC ACID SOLN 500 MG/10 ML UDC PEG SCH ×2 (09:43→20:31)
[2020-11-26] MEDS: POLYETHYLENE (MIRALAX) 17 GM PACK GT SCH (09:56)
[2020-11-26] MEDS: PROSOURCE NO CARB 30 ML/PKT GT SCH (11:26)
[2020-11-26] MEDS: FIBERSOURCE HN 1.2 CAL 1000 ML BAG GT PRN (11:40)
[2020-11-26] MEDS: LACTOBACILLUS ACIDOPHILUS 1 GM PACK PEG SCH ×3 (13:09→20:31)
[2020-11-26] MEDS: POT PHOSPHATE MONOBASIC W/ SOD TAB PEG SCH ×3 (13:09→20:31)
--- NOTE | 2020-11-26 19:28 | Hospitalist Progress Note ---
Date of Service November 26, 2020 Assessment & Plan (1) MRSA bacteremia: source - lungs vs skin; small ulceration over left elbow. TTE negative for vegetations despite severe . regardless of source his repeat blood ccx's are negative since 11/23. PICC line in place, JOSIAH. Continue Ceftaroline twice daily with total duration of 4 weeks from 11/23/20. (2) Aspiration pneumonitis: acute/chronic. aspirates secretions, etc. Sputum culture with Pseudomonas. Suspected to be colonization - has had such grow from trach in the past. Continue PEG feeds with elevate HOB > 45 degrees at all times. (3) Acute encephalopathy: Based on my prior visits with him (when he had COVID earlier in the pandemic, other hospital stays, etc) he appears at baseline. Likely had acute delirium from MRSA bacteremia. (4) Diabetes: HbA1c 6.4. Appreciate pharmacy assistance. 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 Takes such for h/o schizoaffective disorder? Continue 2 mg of haldol via PEG twice daily. (6) H/O: stroke with residual effects: Continue aspirin 81 mg via PEG daily for secondary prevention. (7) Schizoaffective disorder, chronic condition: Continue haloperidol 2 mg p.o. twice daily (8) Severe aortic stenosis: no obvious vegetations based on recent echo not a candidate for future TAVR (9) Seizure disorder: Seen by neurology. They recommended continuation of Keppra and valproic acid at current levels. (10) Chronic prescription opiate use: Continue fentanyl 12 mcg patch q72h. (11) Chronic gout: no issues while here (12) Presence of externally removable percutaneous endoscopic gastrostomy (PEG) tube: tolerating tube feeds at 70cc/hr (13) Tracheostomy dependent: chronic on 6 L of O2 via trach at baseline (14) Chronic respiratory failure with hypoxia: stable on 6 L O2 (15) DVT prophylaxis: Continue Lovenox 40 mg SQ daily Admission and Anticipated Discharge Date Admission Date: November 21, 2020 Subjective per staff no events overnight patient is nonverbal at baseline - just looks at you; does not follow commands during my assessment he looked at me when I called his name has PICC in place LUE pt unable to provide any history or ROS due to nonverbal status remains stable on 6 L O2 via trach Review of Systems Review of Systems: Unobtainable due to mental health condition, Unobtainable due to cognitive status and Other (nonverbal, vegetative state) Physical Exam Constitutional: + altered mental status (nonverbal, just stares, does not follow commands) and + frail appearing; no acute distress ENMT: Mouth: no lip abnormality (moist lips) Neck: trach in place, mild yellow sputum at the opening Respiratory: no respiratory distress course BS b/l, decreased BS right base, no wheeze or distress Cardiovascular: Rate/Rhythm: regular rate and regular rhythm Heart Sounds: normal S1, normal S2 and + murmur (3/6 holosystolic RUSB/apex) Vessels: posterior tibial pulses present and dorsalis pedis pulses present; no JVD Extremities: + edema (trace b/l ) Gastrointestinal (Abdomen): soft, NT, no HSM; small reducible umbilical hernia present; PEG in place, clean insertion site Skin: no rashes, warm and dry LUE PICC line clean/dry/intact Neurologic: increased tone x 4 extremities with clonus of feet and mild resting tremor of arms Psychiatric: Orientation: + not alert and + not oriented x 3 Results & Data Results & Data ([facility]) Vital Signs (Past 12 Hours) Vital Signs Temp Pulse Resp BP BP Pulse Ox 11/26/20 16:05 36.5 C 70 20 139/89 98 11/26/20 07:47 36.4 C L 78 20 148/84 H 94 11/23/20 blood cultures NEGATIVE to date PG Care Time/CCT Total # of Minutes Spent Total Time Spent with Patient: Total time spent is greater than 50% in coordination of care (as documented) at patient's floor/unit and/or counseling patient: Coding Level of Care Code 96277 Subseq Hosp Care Lvl 2 Diagnoses MRSA bacteremia R78.81; B95.62 Aspiration pneumonitis J69.0 Acute encephalopathy G93.40 Diabetes E11.9; Z79.4 Diabetes mellitus complication status: without complication Diabetes mellitus intermodal customer service insulin use: with intermodal customer service use Diabetes mellitus type: type 2 Extrapyramidal and movement disorder G25.9 H/O: stroke with residual effects I69.30 Schizoaffective disorder, chronic condition F25.8 Severe aortic stenosis I35.0 Seizure disorder G40.909 Chronic prescription opiate use Z79.891 Chronic gout M1A.9XX0 Presence of externally removable percutaneous endoscopic gastrostomy (PEG) tube Z93.1 Tracheostomy dependent Z93.0 Chronic respiratory failure with hypoxia J96.11 DVT prophylaxis Z29.9 (1) Diabetes Diabetes mellitus complication status: without complication Diabetes mellitus prison insulin use: with intermodal customer service use Diabetes mellitus type: type 2 Qualified Code(s): E11.9 - Type 2 diabetes mellitus without complications; Z79.4 - intermodal dispatcher (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
[2020-11-27] MEDS: INSULIN ASPART 100 UNITS/ML 3 ML PEN SC SCH ×4 (00:02→12:37)
[2020-11-27] MEDS: FIBERSOURCE HN 1.2 CAL 1000 ML BAG GT PRN (00:07)
[2020-11-27] MEDS: CHECK fentaNYL PATCH PLACEMENT SCH ×2 (00:08→08:23)
[2020-11-27] MEDS: CEFTAROLINE FOSAMIL ACETATE 600 MG in SODIUM CHLORIDE 0.9% 250 ML IV SCH (05:43)
[2020-11-27 06:56] LABS: BUN Creatinine Ratio 22.3 (10-20); Calcium 8.5 mg/dl (8.5-10.1); Creatinine Clr Calc Pharmacy 116.6 ml/min; Est GFR (African American) 117.2 ml/min; Est GFR (Non-African American) 101.2 ml/min; Potassium 3.9 mmol/L (3.5-5.1)
[2020-11-27] MEDS: ASCORBIC ACID 500 MG TAB GT SCH (08:24)
[2020-11-27] MEDS: ASPIRIN 81 MG CHEW PEG SCH (08:24)
[2020-11-27] MEDS: ENOXAPARIN INJ 40 MG/0.4 ML SYR SQ SCH (08:25)
[2020-11-27] MEDS: CHOLECALCIFEROL 1,000 UNITS 25 MCG TAB GT SCH (08:25)
[2020-11-27] MEDS: guaiFENesin SUGAR FREE 200 MG/10 ML UDC GT SCH (08:26)
[2020-11-27] MEDS: HALOPERIDOL 2 MG/1 ML UDP GT SCH (08:26)
[2020-11-27] MEDS: FERROUS SULFATE 325 MG/7.4 ML UDP PEG SCH (08:26)
[2020-11-27] MEDS: LANSOPRAZOLE 30 MG SOLTAB PEG SCH (08:27)
[2020-11-27] MEDS: LACTOBACILLUS ACIDOPHILUS 1 GM PACK PEG SCH ×2 (08:27→12:37)
[2020-11-27] MEDS: POLYETHYLENE (MIRALAX) 17 GM PACK GT SCH (08:27)
[2020-11-27] MEDS: PROSOURCE NO CARB 30 ML/PKT GT SCH (08:28)
[2020-11-27] MEDS: POTASSIUM CHLORIDE PWD 20 MEQ PACK GT SCH (08:28)
[2020-11-27] MEDS: levETIRAcetam ORAL SOLN 100MG/ML GT SCH (08:28)
[2020-11-27] MEDS: POT PHOSPHATE MONOBASIC W/ SOD TAB PEG SCH ×2 (08:28→12:37)
[2020-11-27] MEDS: VALPROIC ACID SOLN 500 MG/10 ML UDC PEG SCH (08:29)
[2020-11-27] MEDS: INSULIN GLARGINE SOLOSTAR 100 UNITS/ML 3 ML PEN SQ SCH (08:55)
--- NOTE | 2020-11-27 13:47 | Pharmacy Report ---
Pharmacy Glycemic Short Note 2 - Date of Service November 27, 2020 - Glycemic Short BSG Results (Last 24 hours): 11/26/20 11/26/20 11/26/20 16:11 20:00 23:57 Glucose POC Glucose 155 H 74 172 H 11/27/20 11/27/20 11/27/20 03:58 06:08 08:05 Glucose 122 H POC Glucose 142 H 142 H 11/27/20 12:15 Glucose POC Glucose 187 H OUTPATIENT ANTIDIABETIC REGIMEN: * Lantus 14 units SQ AM * Humalog SSI * A1c = 6.4% on 11/23/20 ASSESSMENT: 11/27 * BSGs yesterday of 147, 202, 155, and 74 mg/dL * Received 53 units of insulin (14 units of basal and 39 units of prandial/correctional) * Continues on Fibersource - carb ratio tightened yesterday and will continue 11/25 * Pt has received 49 units of insulin over the past 24hrs * 7 units of basal with Lantus * 42 units of bolus with NovoLog * BSGs [phone]- 183mg/dl * Regimen is heavily weighted towards prandial/correctional insulin; will increase Lantus back to outpatient dosing of 14 units to balance regimen. * Continuous tube feeds continue with Fibersource @ 70ml/hr. Will tighten CR if BSGs dont improve with increased Lantus dosing. 11/24 * 69yo T2DM male adm for aspiration PNA * Outpatient control of DM is excellent per A1c * Pt with below goal range BSGs a few days ago therefore outpatient Lantus dose decreased by 50% * Pt with rebound hyperglycemia secondary to continuous tube feedings without CHO coverage ordered * Will start NovoLog Q4hrs with CF/CR to cover CHO in tube feedings and titrate based on BSG trends. PLAN FOR INPATIENT GLYCEMIC CONTROL: * Basal insulin * Increase Lantus 14 units SQ QAM (outpatient dosing) * Bolus insulin: * NovoLog per scale Q4hrs * Goal Range: Low 110 mg/dL - High 140 mg/dL * Correction Factor: 20 mg/dL/unit * Nutritional / Prandial insulin per carb ratio of 1 unit per 6 grams CHO consumed PLAN FOR DISCHARGE: * A1c is in goal range for age/co-morbidities. No changes needed to outpatient regimen unless patient is experiencing hypoglycemia
--- NOTE | 2020-11-27 14:41 | Discharge Summary ---
Date of Service date of admission - November 21, 2020 date of discharge - November 27, 2020 Admission HPI Per Admitting Provider Patient is a medically complex 69 year old male with PMHx L BERRY stroke, s/p PEG, s/p trach collar, schizophrenia, alzheimer's dementia, schizoaffective disorder, HLD, GERD, chronic gout, and hypertension, presenting from [facility] due to concerns of lessened responsiveness, emesis x2, fever of 101. Of note patient does receive continuous tube feds via his PEG and there were concerns that he may have aspirated, leading to the current events. Patient is minimally responsive at baseline and will occasionally open his eyes to his name and occasionally move his legs or clench his fists. He does note appear to follow any commands and is unable to answer any questions or provide any true ROS. Collateral information was gathered via chart review and discussion with the ED provider and nurse. Patient was noted to have 2 episodes of vomiting earlier today and shortly after was found to be less responsive and had developed a fever. He has been receiving continuous tube feeds via a G tube and there were concerns for aspiration at [facility]. Discussion was held with the family in regards to pausing the feeds to prevent further aspiration at this time to which they felt the patient should be evaluated in the hospital. In the ED patient was found to be febrile at 38.2C and given tylenol. He was also started on IV Zosyn and vancomycin and started fluid resucitation with NSS. Head CT and CT abdomen pelvis were negative for acute pathology. Chest XR showed some increased L sided opacities. On my evaluation patient is again minimally responsive and will o ccasionally open his eyes to his name, but cannot seem to follow any instructions nor note if he is having discomfort currently. Med Hx: L BERRY stroke, s/p PEG, s/p trach collar, schizophrenia, alzheimer's dementia, schizoaffective disorder, HLD, GERD, chronic gout, and hypertension Surg Hx: Trach collar, PEG Principal Diagnosis 1. MRSA bacteremia/septicemia 2. Aspiration pneumonia Discharge Exam Constitutional + altered mental status (nonverbal, just stares, does not follow commands) and + frail appearing; no acute distress ENMT Mouth: no lip abnormality (moist lips) Respiratory no respiratory distress very course BS b/l, decreased BS bases, rales bases. Trach present, thick sputum noted. Cardiovascular Rate/Rhythm: regular rate and regular rhythm Heart Sounds: normal S1, normal S2 and + murmur (3/6 holosystolic RUSB/apex) Vessels: posterior tibial pulses present and dorsalis pedis pulses present; no JVD Extremities: + edema (trace b/l ) Gastrointestinal (Abdomen) Softly distended (chronic). Small umbilical hernia - reducible. PEG tube present - insertion site clean. NT. BS+. Skin no rashes, warm and dry + ulcer (Left elbow region ) Neurologic Contractures all 4 limbs. Nonverbal. Clonus of feet. Psychiatric Orientation: + not alert and + not oriented x 3 Discharge Data Allergies Allergy/AdvReac Type Severity Reaction Status Date / Time No Known Allergies Allergy Verified 11/20/20 21:40 Consultations [facility] Infectious Diseases - Telehealth [facility] Glycemic Team Procedures Performed 1. Echocardiogram - Normal EF. Severe Aortic Stenosis. No obvious valvular vegetation. Moderate mitral regurgitation. 2. Midline PICC - left arm Ordered Studies Chest X-Ray 11/20/20 21:24 XR chest 1V portable CLINICAL HISTORY: weakness PATIENT UNRESPONSIVE COMPARISON STUDY: 08/16/2020 FINDINGS: The cardiac and mediastinal contours remain stable. A tracheostomy tube is visualized. There are low lung volumes. There is persistent interstitial thickening. There are more focal nodular airspace opacities in the left lung base, atelectasis versus focal pneumonitis.[ IMPRESSION: 1. Low lung volumes with persistent interstitial thickening 2. Interval development of more focal nodular airspace opacities at the left lung base, atelectasis versus focal pneumonitis. ACT 112: Negative or not required by law. Electronically signed by: Carmelo Blankenship M.D. 11/21/2020 7:[address] 11/20/20 21:24 CT head/brain wo con CLINICAL HISTORY: Acute change in mental status COMPARISON STUDY: 01/04/2020 TECHNIQUE: Axial CT of the brain is performed from the vertex to the skull base. IV contrast was not administered for this examination. A dose lowering technique was utilized adhering to the principles of ALARA. CT DOSE: FINDINGS: There is continued evidence for left frontal lobe encephalomalacia. There is associated dilatation of the left lateral ventricle. There is no CT evidence of acute cortical infarction. There is no midline shift. There is no evidence of acute hemorrhage. There are patchy white matter hypodensities likely on a small vessel basis. There are old lacunar infarcts within the left basal ganglia and right thalamus. There is mild dilatation left lateral ventricle secondary to volume loss. There is no evidence of acute sinusitis IMPRESSION: 1. No significant change from the preceding study 2. Chronic left frontal lobe encephalomalacia with secondary dilatation of the left lateral ventricle 3. Old lacunar infarcts within the left basal ganglia and right thalamus. ACT 112: Negative or not required by law. Electronically signed by: Carmelo Blankenship M.D. 11/21/2020 8:39 AM Abdomen/Pelvis CT 11/20/20 21:32 CT SCAN OF THE ABDOMEN AND PELVIS WITHOUT CONTRAST CLINICAL HISTORY: AMS, vomiting COMPARISON STUDY: February 13, 2015 TECHNIQUE: CT scan of the abdomen and pelvis was performed from the lung bases to the proximal femurs. Images are reviewed in the axial, sagittal, and coronal planes. IV contrast was not administered for this examination. A dose lowering technique was utilized adhering to the principles of ALARA. CT DOSE: 1203.78 mGy.cm FINDINGS: Lower chest: Patchy airspace opacity within bilateral basis intermixed with areas of groundglass attenuation. Limited evaluation of lung parenchyma due to significant motion artifact. Liver: The unenhanced liver is normal in size, contour, and attenuation. There is no intrahepatic biliary ductal dilatation. Gallbladder: Fluid-filled with mild increased intraluminal attenuation within its dependent portion might represent biliary sludge. No radiopaque gallstones are seen. No significant pericholecystic edema/fat stranding. Spleen: Normal in size and attenuation. Pancreas: Unremarkable. Adrenal glands: Nodularity of bilateral adrenal glands are seen. Kidneys: The unenhanced kidneys are normal in size without hydronephrosis. There is 2.5 cm soft tissue attenuating lesion is again seen at the right renal cortex which appears similar to prior study in 2015 and might represent proteinaceous cysts or stable neoplasm. Correlation is limited due to lack of IV contrast.. 4 mm nonobstructive calculus is seen within left renal pelvis. Bowel: Bowel loops are nondilated. PEG tube is seen within nondilated stomach. Appendix is not well visualized. Mild diverticulosis of sigmoid colon. No evidence of diverticulitis. Bilateral fat-containing inguinal hernias. Peritoneum: There is no intraperitoneal free air or abdominal ascites. Vasculature: Tortuous dilated intra-abdominal aorta with right hepatic stent within its infrarenal aspect. Mild interval enlargement of the posterior nondistended lumen is seen within proximal infrarenal aorta. Evaluation is limited on this noncontrast exam (series 6 image 236) Adenopathy: No mesenteric lymphadenopathy seen. Interval enlargement of retrocrural. Retroperitoneal lymph nodes measuring up to 1.6 cm in short axis. Pelvic viscera: The bladder, and pelvic viscera are unremarkable. Small bilateral fat-containing inguinal hernias are seen. Umbilical hernia is seen partially contain nondilated loop of the small bowel. Skeletal structures: Osseous structures are demineralized. Multilevel degenerative changes are seen. IMPRESSION: 1. Tortuous dilated abdominal aorta with infrarenal stent. Questionable dilated of non-stented lumen as detailed above. Further evaluation with angiography of abdominal aorta is suggested. 2. Small umbilical hernia containing nondilated loop of the small bowel. No evidence of obstruction or strangulation. 3. Retroperitoneal lymphadenopathy. Please correlate above-mentioned findings was prior history of neoplastic process. 4. Nonobstructive nephrolithiasis on the left. Stable size of the soft tissue lesion at the right renal cortex. Please correlate above-mentioned findings was prior history. Further evaluation with renal ultrasound the nonemergency basis is suggested. ACT 112: Positive. There are findings on this exam that require communication between the performing entity and the patient following Patient Test Result Information Act ([place] Act 112) guidelines. The above report was generated using voice recognition software. It may contain grammatical, syntax or spelling errors. Electronically signed by: Aundrea Randall DO 11/21/2020 9:17 AM Chest X-Ray 11/23/20 07:00 XR chest 1V portable CLINICAL HISTORY: pneumonia COMPARISON STUDY: November 20, 2020 FINDINGS: No definite pneumothorax seen however evaluation is limited because the right lung apex is obscured by overlying patient's chin.. Interval development of small right pleural effusion. Lung volumes are decreased with crowded lung markings. Patchy airspace opacities at the left lower lung are slightly improved since prior study. Small atelectasis at the right base is seen. Cardiomediastinal silhouette is stable. Pulmonary vasculature is obscured. Osseous structures: Degenerative changes of the spine. IMPRESSION: 1. Minimal interval improvement of airspace opacities at the left base. 2. Small right pleural effusion. 3. Limited exam. ACT 112: Negative or not required by law. The above report was generated using voice recognition software. It may contain grammatical, syntax or spelling errors. Electronically signed by: Aundrea Randall DO 11/23/2020 11:18 AM Hospital Course (1) MRSA bacteremia: Source - lungs vs skin - LLL aspiration pneumonia as seen on chest imaging. He also has a small ulceration over left elbow. TTE negative for vegetations despite severe and mitral regurgitation. Regardless of source his repeat blood cultures were negative since 11/23. PICC line in place, JOSIAH. Seen by [facility] - ceftaroline twice daily with total duration of 4 weeks from 11/23/20 recommended. Thus, he needs 24 more days of IV antibiotic therapy upon return to [facility]. (2) Aspiration pneumonitis: acute/chronic. Chest x-ray with LLL pneumonia. aspirates secretions, etc. Sputum culture with Pseudomonas. Suspected to be colonization - has had such grow from trach in the past. Continue PEG feeds with elevate HOB > 45 degrees at all times. (3) Acute encephalopathy: Based on my prior visits with him (when he had COVID earlier in the pandemic, other hospital stays, etc) he appears at baseline. Likely had acute delirium from MRSA bacteremia. (4) Diabetes: HbA1c 6.4. Pharmacy made glycemic recommendations for him while here. 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 Takes such for h/o schizoaffective disorder? Continue 2 mg of haldol via PEG twice daily. (6) H/O: stroke with residual effects: Continue aspirin 81 mg via PEG daily for secondary prevention. (7) Schizoaffective disorder, chronic condition: Continue haloperidol 2 mg p.o. twice daily. (8) Severe aortic stenosis: no obvious vegetations based on recent echo not a candidate for future TAVR (9) Seizure disorder: Seen [place] [facility] - although a seizuire could have occurred just prior to admission it was felt unlikely. They recommended continuation of Keppra and valproic acid at current doses. Keppra level returned just over 20. Total depakote level was acceptable. (10) Chronic prescription opiate use: Continue fentanyl 12 mcg patch q72h. (11) Chronic gout: no issues while here (12) Presence of externally removable percutaneous endoscopic gastrostomy (PEG) tube: tolerating tube feeds at 70cc/hr of Fibersource HN while here. 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 (15) Decubitus ulcer of left elbow: continue local wound care - Cleanse with saline, cover with Aquacel Ag, cover with medium Optifoam. (16) Dementia: (17) Chronic indwelling Rod catheter: exchanged 11/20/20 at [facility] Total Time Total Time Spent Total Time Spent (In Minutes): 45 Total Time Includes: Examination of the Patient, Discharge Planning and Medication Reconciliation Discharge Plan Discharge Items Patient Disposition: Transfer [facility] Reason For Visit: ASPIRATION PNEUMONIA Discharge Diagnosis: 1. MRSA bacteremia (methicillin-resistant staph aureus) - either due to pneumonia OR left elbow ulceration 2. Suspected aspiration pneumonia 3. chronic hypoxic respiratory failure on oxygen, 6 liters, via tracheostomy 4. PEG tube dependent 5. severe aortic stenosis 6. advanced dementia 7. seizure disorder Activity: As commented below Activity Comment: bed rest or wheelchair Non-emergency contact: Primary Care Provider Call non-emergency contact if: you have any medication questions, your symptoms worsen and you have a fever Follow-up/Referrals: Mango Samuels [Primary Care Provider] - Diet: Nothing by Mouth and Other - See Diet Comment Diet Comment: Fibersource HN 1.2 via PEG - 70cc/hr continuous. Free H20 150ml q4h. Addtl Attending Provider Instructions: Mr Errol Hinojosa was treated for the problems listed above in "discharge diagnoses." Recommendations - 1. Weekly CBC, BMP, and CRP while on IV ceftaroline. First lab draw on 11/30/20. Results to diagnostic medical sonographer. 2. IV ceftaroline 600mg BID via LUE PICC line x 24 more days. 3. Rod catheter exchanged evening of 11/20/20 at [facility]. 4. Left elbow ulcer - cleanse with saline, cover with Aquacel Ag, cover with medium Optifoam. Change QOD and prn. Waffle boot to left elbow and also b/l heels at all times. 5. trach care per respiratory protocol. 6. 6 liters O2 via trach collar as previous. 7. see tube feeding instructions above. 8. palliative care consultation to define goals of care. 9. BSG checks every 6 hours. Return to [facility] if - * fever greater than 100.5 degrees occurs * worsening shortness of breath * worsening oxygen requirements * severe diarrhea * any other concerns Pending Studies at Discharge: No Stand-Alone Forms: My [facility] Skilled Items Patient informed of condition?: No DNR: No Discharge Level of Care: Skilled Communicable Disease: Yes Discharge Prognosis: Stable Lines: PICC Urinary Catheter: Yes Medications and DC Order Prescriptions: New ceftaroline fosamil 600 mg recon soln 600 mg IV Q12H 24 Days Qty: 48 RF: 0 Floranex 100 million cell Granules In Packet 1 g PEG QID 25 Days Qty: 100 RF: 0 Continued aspirin 81 mg Tablet,Chewable 81 mg feeding tube DAILY Qty: 90 RF: 0 acetaminophen [Tylenol] 325 mg Tablet 650 mg feeding tube Q6 PRN (Reason: Fever Or Pain) RF: 0 guaifenesin 100 mg/5 mL Liquid 200 mg feeding tube BID Qty: 0 RF: 0 ascorbic acid (vitamin C) [Vitamin C] 500 mg Tablet 500 mg feeding tube QAM RF: 0 ferrous sulfate 300 mg (60 mg iron)/5 mL Liquid 300 mg feeding tube BID Qty: 0 RF: 0 protein supplement Liquid 30 ea feeding tube BID Qty: 0 RF: 0 cholecalciferol (vitamin D3) [Vitamin D3] 125 mcg (5,000 unit) Tablet 125 mcg feeding tube QAM RF: 0 valproic acid (as sodium salt) 500 mg/10 mL (10 mL) Solution 500 mg feeding tube BID Qty: 0 RF: 0 haloperidol lactate 2 mg/mL Concentrate 2 mg PO Q12H RF: 0 levetiracetam [Keppra] 100 mg/mL Solution 750 mg feeding tube BID RF: 0 esomeprazole magnesium [address] For Susp In Packet 40 mg G-tube QAM RF: 0 polyethylene glycol 3350 [Miralax] 17 gram powder in packet 17 g feeding tube QAM RF: 0 Lantus Solostar U-100 Insulin 100 unit/mL (3 mL) insulin pen 14 unit subcut QAM RF: 0 tramadol 50 mg Tablet 50 mg feeding tube Q4 PRN (Reason: Pain) Qty: 30 RF: 0 insulin lispro 100 unit/mL Solution 1 sliding scale dose SUBCUT USEASDIRECTD Qty: 1 RF: 0 fentanyl 12 mcg/hr Patch 72 Hour 12 mcg transdermal Q72H Qty: 10 RF: 0 Discharge Orders: Discharge Order (Routine); Ordered 11/27/20 Ordered By: Vinny Betancourt/Other Patient Handouts: A1C Admission Data Admit Date/Time: 11/21/20 00:56 Attending Provider: Vinny Ashley Admit Provider: Keshav Barnett Primary Care Provider: Mango Samuels Other Providers: [facility] ; Anurag King ; Cb Gore ; Katie Dinh ; Aidan Menard I. ; Prasanth Collins II ; Trisha Templeton ; Soy Whitt ; Juanis Oliveira ; Jakob Byrd Other Interventions: Discharge Summary Assessment (RN) Last Done: 11/27/20 14:23 Coding Level of Care Code D/C Day Management >30 mins Diagnoses MRSA bacteremia R78.81; B95.62 Aspiration pneumonitis J69.0 Acute encephalopathy G93.40 Diabetes E11.9; Z79.4 Diabetes mellitus complication status: without complication Diabetes mellitus intermediate school teacher insulin use: with intermediate school teacher use Diabetes mellitus type: type 2 Extrapyramidal and movement disorder G25.9 H/O: stroke with residual effects I69.30 Schizoaffective disorder, chronic condition F25.8 Severe aortic stenosis I35.0 Seizure disorder G40.909 Chronic prescription opiate use Z79.891 Chronic gout [id number] Presence of externally removable percutaneous endoscopic gastrostomy (PEG) tube Z93.1 Tracheostomy dependent Z93.0 Chronic respiratory failure with hypoxia J96.11 Decubitus ulcer of left elbow L89.029 Dementia F03.91 Dementia type: unspecified type Dementia behavioral disturbance: with behavioral disturbance Chronic indwelling Rod catheter Z97.8
== END 2020-11-27 16:20 | DRG 871 ==
LOC: ED 21:04 → SUATTDRO 11-21 00:56 → 2S 11-21 00:56 → 3W 11-25 15:42

== ENCOUNTER 2021-07-14 16:27 | Observation (INO) ==
[2021-07-14] MEDS ORDERED: SODIUM CHLORIDE 0.9% 1000ML 500 ML IV ONE ×2 (16:40→18:34)
[2021-07-14] MEDS ORDERED: ALBUT/IPRATROP 3MG/0.5MG NEB 3 ML VIAL INH STA (16:40)
[2021-07-14] MEDS ORDERED: ACETAMINOPHEN 1000 MG/100 ML IV IV STA (16:40)
--- NOTE | 2021-07-14 16:47 | Emergency Department Note ---
Impression & Plan Weakness, Hemoptysis, Tachypnea, COVID-19 ED Provider Note NAME: FIOR ESCALANTE AGE: 70 SEX: M : 1950 ARRIVES VIA: Ambulance INFORMANT: [nursing, ems] ED PROVIDER(S): [Surinder Lu MD] CHIEF COMPLAINT: Illness HISTORY OF PRESENT ILLNESS: The patient is a 70-year-old male with a previous stroke history. He has a feeding tube and tracheostomy and is nonverbal. He remains a full code. The patient presents by EMS today for bloody tracheostomy secretions. He reportedly tested positive for COVID-19 about 8 days ago. He is by report vaccinated and boosted for COVID-19. The patient can give no history. He does not seem in pain. As per his notes, he typically wears 5 L of oxygen via his tracheostomy. Given his mental state, no further history obtainable. REVIEW OF SYSTEMS: Unobtainable given the mental state. PMHx/PSHx: See Below SOCIAL HISTORY: See Below. PHYSICAL EXAM: GENERAL: Patient is in no acute distress. HEENT: No acute trauma, normocephalic atraumatic, mucous membranes dry, no nasal congestion, no scleral icterus. NECK: No stridor, no adenopathy, no meningismus, trachea is midline. Tracheostomy noted. There was some blood-tinged sputum noted. LUNGS: No respiratory distress. There are rhonchi versus some upper airway noise noted bilaterally. Breath sounds are equal. HEART: 3/6 systolic murmur, irregular rhythm, normal rate. ABDOMEN: Soft, nontender, bowel sounds positive, nontender reducible umbilical hernias noted, no peritonitis. EXTREMITIES: No cyanosis or edema, full range of motion of all the joints without pain or difficulty, no signs for acute trauma. NEUROLOGIC: Awakes to voice or pain. Nonverbal. SKIN: No rash, no jaundice, no diaphoresis. Skin is cool to the touch. DIFFERENTIAL DIAGNOSIS: Sepsis, UTI, pneumonia, COVID-19, influenza, metabolic abnormality, electrolyte abnormalities, cardiac sources, cellulitis, bacteremia, as well as other pathologies. EMERGENCY DEPARTMENT COURSE/PROCEDURES: ECG: Indication was possible sepsis or bacteremia. The ECG shows a sinus rhythm with PVCs. The rate is 87. There looks to be an old inferior infarct. There is no ST elevation. The QTC is 418. Continuous Cardiac Monitoring: An order was placed for continuous cardiac monitoring. The monitor shows a rate of 88 with sinus rhythm with PVCs. Critical Care Note: I have personally spent 41 minutes of critical care time in the direct management of this patient. This includes bedside care, interpretation of diagnostic studies, and testing, discussion with consultants, patient, and family members, and other required patient management activities. This 41 minutes is in excess of all separately billable procedures. MEDICAL DECISION MAKING: There is a mild leukocytosis which could be consistent with infection. A mild anemia was noted. There was a normal platelet count. There is no concerning coagulopathy. ABG does not show any significant acidosis. PO2 was a bit low, the CO2 was normal. Sodium was low at 131. No kidney failure. Lactic acid level was not elevated making sepsis less likely. No concerning liver enzyme elevation. ECG shows a sinus rhythm, there was no obvious ischemia. Cardiac enzyme testing x1 is not consistent with acute cardiac injury. COVID, influenza and RSV testing was negative. Chest film shows some chronic changes and some potential atelectasis/pneumonia at the left base. There is no pneumothorax, no CHF. On exam, the patient was tachypneic, a bit somnolent. He did have some bloody sputum from his tracheostomy. He was nonverbal. The patient received IV saline, 1 L. He was given IV cefepime as empiric antibiotic coverage. He was given IV Tylenol for pain. He received a DuoNeb. The patient presents with worsening of his breathing over the last few days. He was recently COVID-positive. He likely is having some respiratory difficulty from the recent COVID infection. There may be a concomitant underlying bacterial pneumonia as well. He does have a history of aspiration pneumonia. I spoke with the patient's brother, I did speak with case management. Given the circumstances, given his presentation and condition, a hospital stay is warranted. I did consult the on-call hospitalist. Past Med/Surg History Medical History Alzheimer disease Aspiration pneumonitis Dementia Diabetes Gastrointestinal hemorrhage GERD (gastroesophageal reflux disease) Goals of care, counseling/discussion Hypertension Muscle weakness Peripheral vascular disease Pneumonia due to COVID-19 virus Presence of externally removable percutaneous endoscopic gastrostomy (PEG) tube Schizoaffective disorder, chronic condition Seizure disorder Stroke Tachypnea Tracheostomy dependent Urinary tract infection Surgical History Status post insertion of percutaneous endoscopic gastrostomy (PEG) tube Tracheostomy in place Family History Other No significant family history Social History Smoking Status: Unknown if ever smoked Hx Alcohol Use: No Hx Substance Use: No Preferred Language: Slovak Communication Ability: Unable Manager Global Communications Required: No Beliefs That Will Affect Care: None marital status: Unknown Current Living Situation: [facility] Feels Safe at Home: Yes Assistive Devices: Oxygen - Continuous Allergies Allergies Allergy/AdvReac Type Severity Reaction Status Date / Time No Known Allergies Allergy Verified 07/14/21 20:37 Home Meds Home Medications Medication Instructions Recorded Confirmed acetaminophen 325 mg tablet 650 mg FEEDING TUBE Q6 PRN 05/19/20 07/14/21 (Tylenol) ascorbic acid (vitamin C) 500 mg 500 mg FEEDING TUBE QAM 05/19/20 07/14/21 tablet (Vitamin C) ferrous sulfate 300 mg (60 mg 300 mg FEEDING TUBE BID #0 05/19/20 07/14/21 iron)/5 mL oral liquid guaifenesin 100 mg/5 mL oral liquid 200 mg FEEDING TUBE BID #0 05/19/20 07/14/21 protein supplement 30 ea FEEDING TUBE BID #0 05/19/20 07/14/21 valproic acid (as sodium salt) 500 500 mg FEEDING TUBE BID #0 05/19/20 07/14/21 mg/10 mL (10 mL) oral solution esomeprazole magnesium 40 mg 40 mg G-TUBE QAM 08/16/20 07/14/21 granules delayed release for susp haloperidol lactate 2 mg/mL oral 2 mg FEEDING TUBE Q12H 08/16/20 07/14/21 concentrate levetiracetam 100 mg/mL oral 750 mg FEEDING TUBE BID 08/16/20 07/14/21 solution (Keppra) polyethylene glycol 3350 17 gram 17 g FEEDING TUBE QAM PRN 08/16/20 07/14/21 oral powder packet (Miralax) insulin glargine 100 unit/mL (3 14 unit SUBCUT QAM 11/20/20 07/14/21 mL) subcutaneous pen (Lantus Solostar U-100 Insulin) Lactobacillus acidoph-L.bulgaricus 1 tab FEEDING TUBE QID 04/20/21 07/14/21 1 million cell chewable tablet cholecalciferol (vitamin D3) 125 125 mcg FEEDING TUBE DAILY 04/20/21 07/14/21 mcg/mL (5,000 unit/mL) oral drops hydrochlorothiazide 12.5 mg tablet 12.5 mg PO DAILY 05/08/21 07/14/21 cholecalciferol (vitamin D3) 125 125 mcg PO DAILY 07/14/21 07/14/21 mcg (5,000 unit) tablet (Vitamin D3) enoxaparin 40 mg/0.4 mL 40 mg SUBCUT DAILY 07/14/21 07/14/21 subcutaneous syringe zinc 50 mg tablet 50 mg PO DAILY 07/14/21 07/14/21 Previous Rx's Medication Instructions Recorded aspirin 81 mg chewable tablet 81 mg FEEDING TUBE DAILY #90 tab 01/25/20 fentanyl 12 mcg/hr transdermal 12 mcg TRANSDERMAL Q72H #10 patch 11/27/20 patch insulin lispro 100 unit/mL 1 sliding scale dose SUBCUT 11/27/20 subcutaneous solution USEASDIRECTD #1 vial tramadol 50 mg tablet 50 mg FEEDING TUBE Q4 PRN #30 tab 11/27/20 Results & Data (ED) Vital Signs Vital Signs - 24 hr 07/14/21 16:35 07/14/21 16:40 07/14/21 17:00 Temperature 37 C Temperature Source Oral Pulse Rate 87 88 86 Pulse Rate [Left Finger] Pulse Rate from SpO2 Sensor 72 66 Pulse Rhythm Regular Pulse Strength Normal Respiratory Rate 21 28 H 20 Respiratory Effort / Characteristics Non-Labored Spontaneous Respiratory Depth Normal Respiratory Pattern Regular Blood Pressure 114/81 Blood Pressure Mean 92 Blood Pressure Position Lying Pulse Oximetry 97 94 98 Oxygen Delivery Method Trach Collar Oxygen Flow Rate Sepsis Recent Fever Within 48 Hours No Sepsis New/Unexplained Change in Mental Status N/A Sepsis Action Taken by Nursing No Action Required 07/14/21 17:04 07/14/21 17:30 07/14/21 18:00 Temperature Temperature Source Pulse Rate 91 H 88 Pulse Rate [Left Finger] 88 Pulse Rate from SpO2 Sensor 80 68 Pulse Rhythm Pulse Strength Respiratory Rate 22 19 17 Respiratory Effort / Characteristics Spontaneous Respiratory Depth Respiratory Pattern Blood Pressure Blood Pressure Mean Blood Pressure Position Pulse Oximetry 97 97 96 Oxygen Delivery Method Trach Collar Oxygen Flow Rate 6 Sepsis Recent Fever Within 48 Hours Sepsis New/Unexplained Change in Mental Status Sepsis Action Taken by Nursing 07/14/21 18:30 07/14/21 19:00 07/14/21 19:57 Temperature Temperature Source Pulse Rate 87 88 92 H Pulse Rate [Left Finger] Pulse Rate from SpO2 Sensor 91 H 63 79 Pulse Rhythm Pulse Strength Respiratory Rate 27 H 34 H 33 H Respiratory Effort / Characteristics Respiratory Depth Respiratory Pattern Blood Pressure 129/85 Blood Pressure Mean 99 Blood Pressure Position Pulse Oximetry 96 96 100 Oxygen Delivery Method Oxygen Flow Rate Sepsis Recent Fever Within 48 Hours Sepsis New/Unexplained Change in Mental Status Sepsis Action Taken by Nursing 07/14/21 20:00 07/14/21 20:30 07/14/21 21:00 Temperature Temperature Source Pulse Rate 90 90 88 Pulse Rate [Left Finger] Pulse Rate from SpO2 Sensor Pulse Rhythm Pulse Strength Respiratory Rate 26 H 27 H 31 H Respiratory Effort / Characteristics Respiratory Depth Respiratory Pattern Blood Pressure 130/89 115/89 129/85 Blood Pressure Mean 102 97 99 Blood Pressure Position Pulse Oximetry 100 99 94 Oxygen Delivery Method Oxygen Flow Rate Sepsis Recent Fever Within 48 Hours Sepsis New/Unexplained Change in Mental Status Sepsis Action Taken by Nursing 07/14/21 21:30 07/14/21 22:00 07/14/21 22:01 Temperature Temperature Source Pulse Rate 88 85 87 Pulse Rate [Left Finger] Pulse Rate from SpO2 Sensor 233 H 227 H Pulse Rhythm Pulse Strength Respiratory Rate 28 H 31 H 33 H Respiratory Effort / Characteristics Respiratory Depth Respiratory Pattern Blood Pressure 135/78 135/94 Blood Pressure Mean 97 107 Blood Pressure Position Pulse Oximetry 97 92 92 Oxygen Delivery Method Oxygen Flow Rate Sepsis Recent Fever Within 48 Hours Sepsis New/Unexplained Change in Mental Status Sepsis Action Taken by Nursing 07/14/21 22:30 07/14/21 23:00 07/14/21 23:01 Temperature Temperature Source Pulse Rate 88 87 85 Pulse Rate [Left Finger] Pulse Rate from SpO2 Sensor Pulse Rhythm Pulse Strength Respiratory Rate 22 22 27 H Respiratory Effort / Characteristics Respiratory Depth Respiratory Pattern Blood Pressure 150/96 H 112/83 Blood Pressure Mean 114 92 Blood Pressure Position Pulse Oximetry 95 97 97 Oxygen Delivery Method Oxygen Flow Rate Sepsis Recent Fever Within 48 Hours Sepsis New/Unexplained Change in Mental Status Sepsis Action Taken by [facility] Medications Current Medication List: was personally reviewed by [facility] Laboratory Data Attestation: I reviewed the patient's lab results. Result diagrams: 07/14/21 18:00 07/14/21 18:00 Lab Results 07/14/21 07/14/21 07/14/21 Range/Units 18:00 18:00 18:00 WBC 11.34 H (4.8-10.8) K/uL RBC 4.73 (4.7-6.1) M/uL Hgb 13.3 L (14.0-18.0) g/dL Hct 41.4 L (42-52) % MCV 87.5 (80-100) fL MCH 28.1 (25-34) pg MCHC 32.1 (32-36) g/dL RDW Std Deviation 51.9 H (36.4-46.3) fL RDW Coeff of Kasey 16.3 H (11.5-14.5) % Plt Count 252 (130-400) K/uL MPV 10.2 (7.4-10.4) fL Immature Gran % (Auto) 1.4 % Neut % (Auto) 69.4 % Lymph % (Auto) 19.9 % [place] % (Auto) 8.6 % Eos % (Auto) 0.5 % Baso % (Auto) 0.2 % Neut # (Auto) 7.86 H (1.4-6.5) K/uL Lymph # (Auto) 2.26 (1.2-3.4) K/uL [place] # (Auto) 0.98 H (0.11-0.59) K/uL Eos # (Auto) 0.06 (0-0.5) K/uL Baso # (Auto) 0.02 (0-0.2) K/uL Immature Gran # (Auto) 0.16 H (0.00-0.02) K/uL PT 10.0 (9.0-12.0) Seconds INR 1.0 (0.9-1.1) APTT 27.6 (21.0-31.0) Seconds PTT Ratio 1.0 ABG pH (7.35-7.45) ABG pCO2 (35-46) mmHg ABG pO2 (80-95) mmHg ABG HCO3 (19-24) mmol/L ABG O2 Saturation (90-95) % ABG Base Excess (-9-1.8) mEq/L Yves Test (Pos) Barometric Pressure mm/Hg Oxygen Given Sodium 131 L (136-145) mmol/L Potassium 4.2 (3.5-5.1) mmol/L Chloride 96 L (98-107) mmol/L Carbon Dioxide 28 (21-32) mmol/L Anion Gap 7 (3-11) BUN 25 H (6-23) mg/dl Creatinine 0.71 (0.6-1.4) mg/dl Est Cr Clr Drug Dosing Not Reportable Est GFR ( Amer) 108.6 ml/min Est GFR (Non-Af Amer) 93.7 ml/min BUN/Creatinine Ratio 35.2 H (10-20) Glucose 166 H (70-99) mg/dl Lactate (0.4-2.0) mmol/L Calcium 9.0 (8.5-10.1) mg/dl Magnesium 1.8 (1.7-2.4) mg/dl Total Bilirubin 0.4 (0.2-1.0) mg/dl AST 14 (13-39) U/L ALT 10 (7-52) U/L Alkaline Phosphatase 84 (34-104) U/L Troponin I 0.03 (0-0.04) ng/ml Total Protein 7.2 (6.0-8.3) gm/dl Albumin 3.1 L (3.4-5.0) gm/dl Globulin 4.1 H (2.5-4.0) gm/dl Albumin/Globulin Ratio 0.8 L (0.9-2) Procalcitonin (0-0.5) ng/ml SARS-CoV-2 (PCR) (Negative) Influenza Type A (PCR) (Neg) Influenza Type B (PCR) (Neg) RSV (RT-PCR) (Neg) 07/14/21 07/14/21 07/14/21 Range/Units 18:00 18:00 18:00 WBC (4.8-10.8) K/uL RBC (4.7-6.1) M/uL Hgb (14.0-18.0) g/dL Hct (42-52) % MCV (80-100) fL MCH (25-34) pg MCHC (32-36) g/dL RDW Std Deviation (36.4-46.3) fL RDW Coeff of Kasey (11.5-14.5) % Plt Count (130-400) K/uL MPV (7.4-10.4) fL Immature Gran % (Auto) % Neut % (Auto) % Lymph % (Auto) % [place] % (Auto) % Eos % (Auto) % Baso % (Auto) % Neut # (Auto) (1.4-6.5) K/uL Lymph # (Auto) (1.2-3.4) K/uL [place] # (Auto) (0.11-0.59) K/uL Eos # (Auto) (0-0.5) K/uL Baso # (Auto) (0-0.2) K/uL Immature Gran # (Auto) (0.00-0.02) K/uL PT (9.0-12.0) Seconds INR (0.9-1.1) APTT (21.0-31.0) Seconds PTT Ratio ABG pH 7.47 H (7.35-7.45) ABG pCO2 39 (35-46) mmHg ABG pO2 67 L (80-95) mmHg ABG HCO3 28 H (19-24) mmol/L ABG O2 Saturation 94.9 (90-95) % ABG Base Excess 3.8 H (-9-1.8) mEq/L Yves Test Pos (Pos) Barometric Pressure 732.2 mm/Hg Oxygen Given ROOM AIT Sodium (136-145) mmol/L Potassium (3.5-5.1) mmol/L Chloride (98-107) mmol/L Carbon Dioxide (21-32) mmol/L Anion Gap (3-11) BUN (6-23) mg/dl Creatinine (0.6-1.4) mg/dl Est Cr Clr Drug Dosing Est GFR ( Amer) ml/min Est GFR (Non-Af Amer) ml/min BUN/Creatinine Ratio (10-20) Glucose (70-99) mg/dl Lactate 1.5 (0.4-2.0) mmol/L Calcium (8.5-10.1) mg/dl Magnesium (1.7-2.4) mg/dl Total Bilirubin (0.2-1.0) mg/dl AST (13-39) U/L ALT (7-52) U/L Alkaline Phosphatase (34-104) U/L Troponin I (0-0.04) ng/ml Total Protein (6.0-8.3) gm/dl Albumin (3.4-5.0) gm/dl Globulin (2.5-4.0) gm/dl Albumin/Globulin Ratio (0.9-2) Procalcitonin 0.07 (0-0.5) ng/ml SARS-CoV-2 (PCR) (Negative) Influenza Type A (PCR) (Neg) Influenza Type B (PCR) (Neg) RSV (RT-PCR) (Neg) 07/14/21 Range/Units 18:15 WBC (4.8-10.8) K/uL RBC (4.7-6.1) M/uL Hgb (14.0-18.0) g/dL Hct (42-52) % MCV (80-100) fL MCH (25-34) pg MCHC (32-36) g/dL RDW Std Deviation (36.4-46.3) fL RDW Coeff of Kasey (11.5-14.5) % Plt Count (130-400) K/uL MPV (7.4-10.4) fL Immature Gran % (Auto) % Neut % (Auto) % Lymph % (Auto) % [place] % (Auto) % Eos % (Auto) % Baso % (Auto) % Neut # (Auto) (1.4-6.5) K/uL Lymph # (Auto) (1.2-3.4) K/uL [place] # (Auto) (0.11-0.59) K/uL Eos # (Auto) (0-0.5) K/uL Baso # (Auto) (0-0.2) K/uL Immature Gran # (Auto) (0.00-0.02) K/uL PT (9.0-12.0) Seconds INR (0.9-1.1) APTT (21.0-31.0) Seconds PTT Ratio ABG pH (7.35-7.45) ABG pCO2 (35-46) mmHg ABG pO2 (80-95) mmHg ABG HCO3 (19-24) mmol/L ABG O2 Saturation (90-95) % ABG Base Excess (-9-1.8) mEq/L Yves Test (Pos) Barometric Pressure mm/Hg Oxygen Given Sodium (136-145) mmol/L Potassium (3.5-5.1) mmol/L Chloride (98-107) mmol/L Carbon Dioxide (21-32) mmol/L Anion Gap (3-11) BUN (6-23) mg/dl Creatinine (0.6-1.4) mg/dl Est Cr Clr Drug Dosing Est GFR ( Amer) ml/min Est GFR (Non-Af Amer) ml/min BUN/Creatinine Ratio (10-20) Glucose (70-99) mg/dl Lactate (0.4-2.0) mmol/L Calcium (8.5-10.1) mg/dl Magnesium (1.7-2.4) mg/dl Total Bilirubin (0.2-1.0) mg/dl AST (13-39) U/L ALT (7-52) U/L Alkaline Phosphatase (34-104) U/L Troponin I (0-0.04) ng/ml Total Protein (6.0-8.3) gm/dl Albumin (3.4-5.0) gm/dl Globulin (2.5-4.0) gm/dl Albumin/Globulin Ratio (0.9-2) Procalcitonin (0-0.5) ng/ml SARS-CoV-2 (PCR) NEGATIVE (Negative) Influenza Type A (PCR) Negative (Neg) Influenza Type B (PCR) Negative (Neg) RSV (RT-PCR) Negative (Neg) Administered Medications Discontinued Medications Acetaminophen (Acetaminophen 1000 Mg/100 Ml Iv) 1,000 mg IV NOW STA Stop: 07/14/21 16:41 Last Admin: 07/14/21 18:17 Dose: 1,000 mg Documented by: [id number] Albuterol (Albut/Ipratrop 3mg/0.5mg Neb 3 Ml Vial) 3 ml INH NOW STA Stop: 07/14/21 16:41 Last Admin: 07/14/21 17:00 Dose: 3 ml Documented by: [id number] Sodium Chloride (Nss 1000ml) 500 mls @ 999 mls/hr IV .Q31M ONE Stop: 07/14/21 17:10 Last Infusion: 07/14/21 19:14 Dose: 0 mls/hr Documented by: [id number] Admin: 07/14/21 18:18 Dose: 999 mls/hr Documented by: [id number] Sodium Chloride (Nss 1000ml) 500 mls @ 999 mls/hr IV .Q31M ONE Stop: 07/14/21 19:04 Last Infusion: 07/14/21 19:45 Dose: 0 mls/hr Documented by: [id number] Admin: 07/14/21 19:14 Dose: 999 mls/hr Documented by: [id number] Cefepime HCl (Maxipime) 2,000 mg in 20 mls @ 5 mls/min IV NOW STA; Protocol Stop: 07/14/21 19:31 Last Admin: 07/14/21 19:57 Dose: 5 mls/min Documented by: [id number] Imaging Data Radiologist's Impression: Chest X-Ray 07/14/21 16:40 XR chest 1V portable CLINICAL HISTORY: SOB. COMPARISON STUDY: 05/08/2021 TECHNIQUE: 1 view of the chest FINDINGS: Single frontal view of the chest demonstrates the heart to again be enlarged. Tracheostomy tube is again seen. There is a decreased inspiratory effort with elevation of the hemidiaphragms and crowding of the bronchovascular markings at the lung bases and centrally. The lungs are clear of alveolar opacities. There is no evidence for pleural effusion. There is no evidence for vascular congestion. There is no acute osseous pathology. IMPRESSION: There is a decreased inspiratory effort with otherwise no acute chest disease. ACT 112: Negative or not required by law. Electronically signed by: Cruzito Bailey M.D. 07/14/2021 6:28 PM Discharge Plan Visit Data Chief Complaint: Illness Stated Complaint: BLOODY SPUTUM IN TRACH, COVID + ED Provider: Surinder Lu Discharge Problem: Weakness, Hemoptysis, Tachypnea, COVID-19 Patient Disposition: Admitted As Inpatient Condition: Fair Forms Stand Alone Forms: My [facility] [employer] Prescriptions Prescriptions: No Action aspirin 81 mg Tablet,Chewable 81 mg feeding tube DAILY Qty: 90 RF: 0 acetaminophen [Tylenol] 325 mg Tablet 650 mg feeding tube Q6 PRN (Reason: Fever Or Pain) RF: 0 guaifenesin 100 mg/5 mL Liquid 200 mg feeding tube BID Qty: 0 RF: 0 ascorbic acid (vitamin C) [Vitamin C] 500 mg Tablet 500 mg feeding tube QAM RF: 0 ferrous sulfate 300 mg (60 mg iron)/5 mL Liquid 300 mg feeding tube BID Qty: 0 RF: 0 protein supplement Liquid 30 ea feeding tube BID Qty: 0 RF: 0 valproic acid (as sodium salt) 500 mg/10 mL (10 mL) Solution 500 mg feeding tube BID Qty: 0 RF: 0 haloperidol lactate 2 mg/mL Concentrate 2 mg feeding tube Q12H RF: 0 levetiracetam [Keppra] 100 mg/mL Solution 750 mg feeding tube BID RF: 0 esomeprazole magnesium [address] For Susp In Packet 40 mg G-tube QAM RF: 0 polyethylene glycol 3350 [Miralax] 17 gram powder in packet 17 g feeding tube QAM PRN (Reason: Constipation) RF: 0 hydrochlorothiazide 12.5 mg Tablet 12.5 mg PO DAILY RF: 0 Lantus Solostar U-100 Insulin 100 unit/mL (3 mL) insulin pen 14 unit subcut QAM RF: 0 tramadol 50 mg Tablet 50 mg feeding tube Q4 PRN (Reason: Pain) Qty: 30 RF: 0 insulin lispro 100 unit/mL Solution 1 sliding scale dose SUBCUT USEASDIRECTD Qty: 1 RF: 0 fentanyl 12 mcg/hr Patch 72 Hour 12 mcg transdermal Q72H Qty: 10 RF: 0 Floranex 1 million cell Tablet,Chewable 1 tab feeding tube QID RF: 0 cholecalciferol (vitamin D3) 125 mcg/mL (5,000 unit/mL) Drops 125 mcg feeding tube DAILY RF: 0 zinc 50 mg Tablet 50 mg PO DAILY RF: 0 enoxaparin 40 mg/0.4 mL syringe 40 mg subcut DAILY RF: 0 cholecalciferol (vitamin D3) [Vitamin D3] 125 mcg (5,000 unit) Tablet 125 mcg PO DAILY RF: 0 Referrals Referrals: Mango Samuels [Primary Care Provider] -
[2021-07-14 18:19] LABS: Basophils # (auto) 0.02 K/uL (0-0.2); Basophils % (auto) 0.2 %; Eosinophils # (auto) 0.06 K/uL (0-0.5); Eosinophils % (auto) 0.5 %; Hematocrit (blood only) 41.4 % (42-52); Hemoglobin 13.3 g/dL (14.0-18.0); Immature Granulocytes # (auto) 0.16 K/uL (0.00-0.02); Immature Granulocytes % (auto) 1.4 %; Lymphocytes # (auto) 2.26 K/uL (1.2-3.4); Lymphocytes % (auto) 19.9 %; Mean Corpuscular Hemoglobin 28.1 pg (25-34); Mean Corpuscular Hgb Conc 32.1 g/dL (32-36); Mean Corpuscular Volume 87.5 fL (80-100); Mean Platelet Volume 10.2 fL (7.4-10.4); Monocytes # (auto) 0.98 K/uL (0.11-0.59); Monocytes % (auto) 8.6 %; Neutrophils # (auto) 7.86 K/uL (1.4-6.5); Neutrophils % (auto) 69.4 %; Platelet Count 252 K/uL (130-400); RDW Coefficient of Variation 16.3 % (11.5-14.5); RDW Standard Deviation 51.9 fL (36.4-46.3); Red Blood Count 4.73 M/uL (4.7-6.1); White Blood Count 11.34 K/uL (4.8-10.8)
[2021-07-14 18:21] LABS: Base Excess ABG 3.8 mEq/L (-9-1.8); HCO3 ABG 28 mmol/L (19-24); Oxygen Saturation ABG 94.9 % (90-95); PCO2 ABG 39 mmHg (35-46); PO2 ABG 67 mmHg (80-95); pH ABG 7.47 (7.35-7.45)
[2021-07-14 18:22] LABS: Allen Test Pos (Pos)
[2021-07-14 18:29] LABS: Partial Thromboplastin Time 27.6 Seconds (21.0-31.0)
--- NOTE | 2021-07-14 18:29 | XRay Report ---
XR chest 1V portable CLINICAL HISTORY: SOB. COMPARISON STUDY: 05/08/2021 TECHNIQUE: 1 view of the chest FINDINGS: Single frontal view of the chest demonstrates the heart to again be enlarged. Tracheostomy tube is ag ain seen. There is a decreased inspiratory effort with elevation of the hemidiaphragms and crowding o f the bronchovascular markings at the lung bases and centrally. The lungs are clear of alveolar opaci ties. There is no evidence for pleural effusion. There is no evidence for vascular congestion. There is no acute osseous pathology. IMPRESSION: There is a decreased inspiratory effort with otherwise no acute chest disease. ACT 112: Negative or not required by law. Electronically signed by: Cruzito Bialey M.D. 07/14/2021 6:28 PM
[2021-07-14 18:52] LABS: Troponin I 0.03 ng/ml (0-0.04)
[2021-07-14 18:58] LABS: Alanine Aminotransferase 10 U/L (7-52); Albumin Globulin Ratio 0.8 (0.9-2); Albumin Level 3.1 gm/dl (3.4-5.0); Alkaline Phosphatase 84 U/L (34-104); Anion Gap 7 (3-11); Aspartate Aminotransferase 14 U/L (13-39); BUN Creatinine Ratio 35.2 (10-20); Bilirubin,Total 0.4 mg/dl (0.2-1.0); Blood Urea Nitrogen 25 mg/dl (6-23); Carbon Dioxide 28 mmol/L (21-32); Chloride 96 mmol/L (98-107); Est GFR (African American) 108.6 ml/min; Est GFR (Non-African American) 93.7 ml/min; Globulin 4.1 gm/dl (2.5-4.0); Glucose 166 mg/dl (70-99); Magnesium 1.8 mg/dl (1.7-2.4); Potassium 4.2 mmol/L (3.5-5.1); Sodium 131 mmol/L (136-145); Total Protein 7.2 gm/dl (6.0-8.3)
[2021-07-14 19:03] LABS: Influenza A virus by PCR Negative (Neg); Influenza B virus by PCR Negative (Neg); RSV by PCR Negative (Neg); SARS CoV2 RNA(COVID-19) InHosp NEGATIVE (Negative)
[2021-07-14] MEDS ORDERED: CEFEPIME 2,000 MG/20 ML VIAL IV STA (19:28)
--- NOTE | 2021-07-14 20:52 | History & Physical Report ---
Date of Service July 14, 2021 Assessment & Plan (1) Tracheostomy in place: Plan: With reported bloody secretions. Not appreciated at this time. -Routine trach management -TC 6L (2) COVID-19: Plan: Patient diagnosed on 07/08/21 - at baseline O2 requirement -Monitor -Isolation precautions -Tylenol PRN -Albuterol PRN -Zinc 220 BID (3) Chronic indwelling Rod catheter: Plan: No active issues -Routine care q shift (4) Schizophrenia: Plan: Chronic -Continue Valproic acid -Continue Haldol (5) Dementia: Plan: Chronic. Patient is nonverbal, bedbound, not following commands at this time -Frequent orientation (6) Coronary artery disease: Plan: Chronic -Continue ASA (7) GERD (gastroesophageal reflux disease): Plan: Chronic -Continue Prevacid (8) Seizure disorder: Plan: Chronic -Continue Keppra -Continue Valproic acid (9) Diabetes: Plan: Chronic -Continue Lantus 14u qAM -ISS Plan: Aspiration precautions Turn and position q 2 hours F/E/N - Heplock. Monitor electrolytes. TF Prosource Ppx - SCDs, no chemoppx in setting of reported bleeding Code - Full Dispo - Observation to medical History of Present Illness Chief Complaint: Blood from tracheostomy Primary Care Provider: [facility] 70yo male with prior CVA s/p tracheostomy, PEG tube, nonverbal presenting from [place] with report of bleeding from tracheostomy site. Covid+ 8 days ago. He is vaccinated and has received a booster Patient is unable to provide history Allergies Allergy/AdvReac Type Severity Reaction Status Date / Time No Known Allergies Allergy Verified 07/14/21 20:37 Home Medications Medication Instructions Recorded Confirmed Type aspirin 81 mg chewable tablet 81 mg FEEDING TUBE DAILY #90 tab 01/25/20 07/14/21 Rx acetaminophen 325 mg tablet 650 mg FEEDING TUBE Q6 PRN 05/19/20 07/14/21 History (Tylenol) ascorbic acid (vitamin C) 500 mg 500 mg FEEDING TUBE QAM 05/19/20 07/14/21 History tablet (Vitamin C) ferrous sulfate 300 mg (60 mg 300 mg FEEDING TUBE BID #0 05/19/20 07/14/21 History iron)/5 mL oral liquid guaifenesin 100 mg/5 mL oral liquid 200 mg FEEDING TUBE BID #0 05/19/20 07/14/21 History protein supplement 30 ea FEEDING TUBE BID #0 05/19/20 07/14/21 History valproic acid (as sodium salt) 500 500 mg FEEDING TUBE BID #0 05/19/20 07/14/21 History mg/10 mL (10 mL) oral solution esomeprazole magnesium 40 mg 40 mg G-TUBE QAM 08/16/20 07/14/21 History granules delayed release for susp haloperidol lactate 2 mg/mL oral 2 mg FEEDING TUBE Q12H 08/16/20 07/14/21 History concentrate levetiracetam 100 mg/mL oral 750 mg FEEDING TUBE BID 08/16/20 07/14/21 History solution (Keppra) polyethylene glycol 3350 17 gram 17 g FEEDING TUBE QAM PRN 08/16/20 07/14/21 History oral powder packet (Miralax) insulin glargine 100 unit/mL (3 14 unit SUBCUT QAM 11/20/20 07/14/21 History mL) subcutaneous pen (Lantus Solostar U-100 Insulin) fentanyl 12 mcg/hr transdermal 12 mcg TRANSDERMAL Q72H #10 patch 11/27/20 07/14/21 Rx patch insulin lispro 100 unit/mL 1 sliding scale dose SUBCUT 11/27/20 07/14/21 Rx subcutaneous solution USEASDIRECTD #1 vial tramadol 50 mg tablet 50 mg FEEDING TUBE Q4 PRN #30 tab 11/27/20 07/14/21 Rx Lactobacillus acidoph-L.bulgaricus 1 tab FEEDING TUBE QID 04/20/21 07/14/21 History 1 million cell chewable tablet cholecalciferol (vitamin D3) 125 125 mcg FEEDING TUBE DAILY 04/20/21 07/14/21 History mcg/mL (5,000 unit/mL) oral drops hydrochlorothiazide 12.5 mg tablet 12.5 mg PO DAILY 05/08/21 07/14/21 History cholecalciferol (vitamin D3) 125 125 mcg PO DAILY 07/14/21 07/14/21 History mcg (5,000 unit) tablet (Vitamin D3) enoxaparin 40 mg/0.4 mL 40 mg SUBCUT DAILY 07/14/21 07/14/21 History subcutaneous syringe zinc 50 mg tablet 50 mg PO DAILY 01/14/22 01/14/22 History Past Med/Surg History Medical History (Updated 07/15/21 @ 04:19 by Lavinia Menard DO) Alzheimer disease Aspiration pneumonitis Dementia Diabetes Gastrointestinal hemorrhage GERD (gastroesophageal reflux disease) Goals of care, counseling/discussion Hypertension Muscle weakness Peripheral vascular disease Pneumonia due to COVID-19 virus Presence of externally removable percutaneous endoscopic gastrostomy (PEG) tube Schizoaffective disorder, chronic condition Seizure disorder Stroke Tachypnea Tracheostomy dependent Urinary tract infection Surgical History Status post insertion of percutaneous endoscopic gastrostomy (PEG) tube Tracheostomy in place Family History Other No significant family history Social History Smoking Status: Unknown if ever smoked Hx Alcohol Use: No Hx Substance Use: No Preferred Language: Urdu Communication Ability: Unable Parts Counter Clerk Required: No Beliefs That Will Affect Care: Adventist marital status: Unknown Current Living Situation: [facility] Feels Safe at Home: Yes Assistive Devices: Oxygen - Continuous Review of Systems Review of Systems: Unobtainable due to cognitive status Physical Exam Physical Exam: General: patient resting comfortably, NAD, nonverbal Skin: warm, dry, intact, no rashes or lesions HEENT: NC/AT, PERRL,anicteric sclera, conjunctiva without injection, external ear normal to inspection and nontender, nares patent, moist mucus membranes, dentition intact, no oropharyngeal lesions, neck supple, trachea midline, no LAD, no thyromegaly, no JVD, trach collar in place with 6L O2 by TC, site appears clear with no bleeding Heart: +S1/S2, regular, no m/r/g Lungs: equal air entry bilaterally, no rales/rhonchi/wheezes Abd: +BS, soft, NT/ND, no masses/organomegaly/ascites, umbilical hernia present - reducible Ext: warm, 2+ pulses in UE/LE bilaterally, no clubbing/cyanosis or edema Neuro: nonverbal, not following commands. Results & Data Results & Data ([facility]) Vital Signs (Past 12 Hours) Vital Signs Temp Pulse Pulse Resp BP Pulse Ox 07/14/21 20:00 90 26 H 130/89 100 01/14/22 19:57 92 H 33 H 129/85 100 07/14/21 19:00 88 34 H 96 07/14/21 18:30 87 27 H 96 07/14/21 18:00 88 17 96 07/14/21 17:30 91 H 19 97 07/14/21 17:04 88 22 97 07/14/21 17:00 86 20 98 07/14/21 16:40 37 C 88 28 H 114/81 94 07/14/21 16:35 87 21 97 Laboratory Results Laboratory Results WBC 11.34 K/uL (4.8-10.8) H 07/14/21 18:00 RBC 4.73 M/uL (4.7-6.1) 07/14/21 18:00 Hgb 13.3 g/dL (14.0-18.0) L 07/14/21 18:00 Hct 41.4 % (42-52) L 07/14/21 18:00 MCV 87.5 fL (80-100) 07/14/21 18:00 MCH 28.1 pg (25-34) 07/14/21 18:00 MCHC 32.1 g/dL (32-36) 07/14/21 18:00 RDW Std Deviation 51.9 fL (36.4-46.3) H 07/14/21 18:00 RDW Coeff of [place] 16.3 % (11.5-14.5) H 07/14/21 18:00 Plt Count 252 K/uL (130-400) 07/14/21 18:00 MPV 10.2 fL (7.4-10.4) 07/14/21 18:00 Immature Gran % (Auto) 1.4 % 07/14/21 18:00 Neut % (Auto) 69.4 % 07/14/21 18:00 Lymph % (Auto) 19.9 % 07/14/21 18:00 [place] % (Auto) 8.6 % 07/14/21 18:00 Eos % (Auto) 0.5 % 07/14/21 18:00 Baso % (Auto) 0.2 % 07/14/21 18:00 Neut # (Auto) 7.86 K/uL (1.4-6.5) H 07/14/21 18:00 Lymph # (Auto) 2.26 K/uL (1.2-3.4) 07/14/21 18:00 [place] # (Auto) 0.98 K/uL (0.11-0.59) H 07/14/21 18:00 Eos # (Auto) 0.06 K/uL (0-0.5) 07/14/21 18:00 Baso # (Auto) 0.02 K/uL (0-0.2) 07/14/21 18:00 Immature Gran # (Auto) 0.16 K/uL (0.00-0.02) H 07/14/21 18:00 PT 10.0 Seconds (9.0-12.0) 07/14/21 18:00 INR 1.0 (0.9-1.1) 07/14/21 18:00 APTT 27.6 Seconds (21.0-31.0) 07/14/21 18:00 PTT Ratio 1.0 07/14/21 18:00 ABG pH 7.47 (7.35-7.45) H 07/14/21 18:00 ABG pCO2 39 mmHg (35-46) 07/14/21 18:00 ABG pO2 67 mmHg (80-95) L 07/14/21 18:00 ABG HCO3 28 mmol/L (19-24) H 07/14/21 18:00 ABG O2 Saturation 94.9 % (90-95) 07/14/21 18:00 ABG Base Excess 3.8 mEq/L (-9-1.8) H 07/14/21 18:00 Yves Test Pos (Pos) 07/14/21 18:00 Barometric Pressure 732.2 mm/Hg 07/14/21 18:00 Oxygen Given ROOM AIT 07/14/21 18:00 Sodium 131 mmol/L (136-145) L 07/14/21 18:00 Potassium 4.2 mmol/L (3.5-5.1) 07/14/21 18:00 Chloride 96 mmol/L (98-107) L 07/14/21 18:00 Carbon Dioxide 28 mmol/L (21-32) 07/14/21 18:00 Anion Gap 7 (3-11) 07/14/21 18:00 BUN 25 mg/dl (6-23) H 07/14/21 18:00 Creatinine 0.71 mg/dl (0.6-1.4) 07/14/21 18:00 Est Cr Clr Drug Dosing Not Reportable 07/14/21 18:00 Est GFR ( Amer) 108.6 ml/min 07/14/21 18:00 Est GFR (Non-Af Amer) 93.7 ml/min 07/14/21 18:00 BUN/Creatinine Ratio 35.2 (10-20) H 07/14/21 18:00 Glucose 166 mg/dl (70-99) H 07/14/21 18:00 POC Glucose 143 mg/dl (70-99) H 07/15/21 02:01 Lactate 1.5 mmol/L (0.4-2.0) 07/14/21 18:00 Calcium 9.0 mg/dl (8.5-10.1) 07/14/21 18:00 Phosphorus 2.9 mg/dl (2.5-4.9) 07/15/21 01:27 Magnesium 1.7 mg/dl (1.7-2.4) 07/15/21 01:27 Total Bilirubin 0.4 mg/dl (0.2-1.0) 07/14/21 18:00 AST 14 U/L (13-39) 07/14/21 18:00 ALT 10 U/L (7-52) 07/14/21 18:00 Alkaline Phosphatase 84 U/L (34-104) 07/14/21 18:00 Troponin I 0.03 ng/ml (0-0.04) 07/14/21 18:00 Total Protein 7.2 gm/dl (6.0-8.3) 07/14/21 18:00 Albumin 3.1 gm/dl (3.4-5.0) L 07/14/21 18:00 Globulin 4.1 gm/dl (2.5-4.0) H 07/14/21 18:00 Albumin/Globulin Ratio 0.8 (0.9-2) L 07/14/21 18:00 Procalcitonin 0.07 ng/ml (0-0.5) 07/14/21 18:00 SARS-CoV-2 (PCR) NEGATIVE (Negative) 07/14/21 18:15 Influenza Type A (PCR) Negative (Neg) 07/14/21 18:15 Influenza Type B (PCR) Negative (Neg) 07/14/21 18:15 RSV (RT-PCR) Negative (Neg) 07/14/21 18:15 Impressions Chest X-Ray 07/14/21 16:40 XR chest 1V portable CLINICAL HISTORY: SOB. COMPARISON STUDY: 05/08/2021 TECHNIQUE: 1 view of the chest FINDINGS: Single frontal view of the chest demonstrates the heart to again be enlarged. Tracheostomy tube is again seen. There is a decreased inspiratory effort with elevation of the hemidiaphragms and crowding of the bronchovascular markings at the lung bases and centrally. The lungs are clear of alveolar opacities. There is no evidence for pleural effusion. There is no evidence for vascular congestion. There is no acute osseous pathology. IMPRESSION: There is a decreased inspiratory effort with otherwise no acute chest disease. ACT 112: Negative or not required by law. Electronically signed by: Cruzito Bailey M.D. 07/14/2021 6:28 PM Code Status & VTE Plan VTE Prophylaxis Plan VTE Prophylaxis will be ordered: Yes PG Care Time/CCT Total # of Minutes Spent Total Time Spent with Patient: Total time spent is greater than 50% in coordination of care (as documented) at patient's floor/unit and/or counseling patient: Coding Level of Care Code INT OBSERVATION CARE 70M LVL [address] Z93.0 COVID-19 U07.1 Chronic indwelling Rod catheter Z97.8 Schizophrenia F20.9 Schizophrenia type: unspecified Dementia F03.91 Dementia type: unspecified type Dementia behavioral disturbance: with behavioral disturbance Coronary artery disease I25.10 Coronary Disease-Associated Artery/Lesion type: [place] artery [place] vs. transplanted heart: [place] heart Associated angina: without angina GERD (gastroesophageal reflux disease) K21.9 Esophagitis presence: esophagitis presence not specified Seizure disorder G40.909 Diabetes E11.9; Z79.4 Diabetes mellitus type: type 2 Diabetes mellitus detention insulin use: with detention use Diabetes mellitus complication status: without complication (1) Schizophrenia Schizophrenia type: unspecified Qualified Code(s): F20.9 - Schizophrenia, unspecified (2) Dementia Dementia type: unspecified type Dementia behavioral disturbance: with beh avioral disturbance Qualified Code(s): F03.91 - Unspecified dementia with behavioral disturbance (3) Coronary artery disease Coronary Disease-Associated Artery/Lesion type: [place] artery [place] vs. transplanted heart: [place] heart Associated angina: without angina Qualified Code(s): I25.10 - Atherosclerotic heart disease of [place] coronary artery without angina pectoris (4) GERD (gastroesophageal reflux disease) Esophagitis presence: esophagitis presence not specified Qualified Code(s): K21.9 - Gastro-esophageal reflux disease without esophagitis (5) Diabetes Diabetes mellitus type: type 2 Diabetes mellitus termite exterminator helper insulin use: with termite exterminator helper use Diabetes mellitus complication status: without complication Qualified Code(s): E11.9 - Type 2 diabetes mellitus without complications; Z79.4 - residential (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
[2021-07-15] MEDS ORDERED: ONDANSETRON INJ 2 MG/ML 2 ML VIAL IV PRN (01:12)
[2021-07-15] MEDS ORDERED: GLUCAGON FOR INJ 1 MG VIAL SQ PRN (01:12)
[2021-07-15] MEDS ORDERED: POLYETHYLENE (MIRALAX) 17 GM PACK GT PRN (01:12)
[2021-07-15] MEDS ORDERED: traMADol HCL 50 MG TABLET NG PRN (01:12)
[2021-07-15] MEDS ORDERED: CARBOHYDRATES FOR HYPOGLYCEMIA PO PRN (01:12)
[2021-07-15] MEDS ORDERED: ACETAMINOPHEN SUSP 160 MG/5 ML UDC PEG PRN (01:12)
[2021-07-15] MEDS ORDERED: DEXTROSE 50% 50 ML SYRINGE IV PRN (01:12)
[2021-07-15] MEDS ORDERED: GLUCOSE 40% GEL 15 GM TUBE PO PRN (01:12)
[2021-07-15] MEDS ORDERED: ALBUTEROL 0.5% NEB SOLN 2.5 MG/0.5 ML VIAL NEB PRN (01:12)
[2021-07-15] MEDS ORDERED: GLUCOSE 10 TABS/TUBE PO PRN (01:12)
[2021-07-15] MEDS: CHECK fentaNYL PATCH PLACEMENT SCH ×3 (01:53→15:41)
[2021-07-15 01:56] LABS: Magnesium 1.7 mg/dl (1.7-2.4); Phosphorus 2.9 mg/dl (2.5-4.9)
[2021-07-15] MEDS: INSULIN ASPART PER UNIT SC SCH ×4 (02:04→18:24)
[2021-07-15] MEDS: VALPROIC ACID SOLN 500 MG/10 ML UDC GT SCH ×3 (02:11→22:08)
[2021-07-15] MEDS: levETIRAcetam ORAL SOLN 100MG/ML GT SCH ×3 (02:11→22:08)
[2021-07-15] MEDS: guaiFENesin SUGAR FREE 100 MG/5 ML UDC GT SCH ×3 (02:11→22:08)
[2021-07-15] MEDS: HALOPERIDOL 2 MG/1 ML UDP GT SCH ×3 (02:12→22:08)
[2021-07-15 06:04] LABS: Basophils # (auto) 0.03 K/uL (0-0.2); Basophils % (auto) 0.2 %; Eosinophils # (auto) 0.09 K/uL (0-0.5); Eosinophils % (auto) 0.7 %; Hemoglobin 13.2 g/dL (14.0-18.0); Immature Granulocytes # (auto) 0.18 K/uL (0.00-0.02); Immature Granulocytes % (auto) 1.5 %; Lymphocytes # (auto) 2.59 K/uL (1.2-3.4); Lymphocytes % (auto) 20.9 %; Mean Corpuscular Hemoglobin 27.8 pg (25-34); Mean Corpuscular Hgb Conc 31.4 g/dL (32-36); Mean Corpuscular Volume 88.6 fL (80-100); Mean Platelet Volume 10.6 fL (7.4-10.4); Monocytes # (auto) 1.27 K/uL (0.11-0.59); Monocytes % (auto) 10.3 %; Neutrophils # (auto) 8.22 K/uL (1.4-6.5); Neutrophils % (auto) 66.4 %; Platelet Count 242 K/uL (130-400); RDW Coefficient of Variation 16.1 % (11.5-14.5); RDW Standard Deviation 52.4 fL (36.4-46.3); Red Blood Count 4.74 M/uL (4.7-6.1); White Blood Count 12.38 K/uL (4.8-10.8)
[2021-07-15 06:35] LABS: Albumin Level 3.1 gm/dl (3.4-5.0); BUN Creatinine Ratio 30.1 (10-20); Bilirubin Direct 0.1 mg/dl (0-0.2); Bilirubin,Total 0.7 mg/dl (0.2-1.0); Calcium 8.9 mg/dl (8.5-10.1); Creatinine Clr Calc Pharmacy 78.1 ml/min; Est GFR (African American) 107.4 ml/min; Est GFR (Non-African American) 92.7 ml/min; Potassium 3.6 mmol/L (3.5-5.1); Total Protein 7.2 gm/dl (6.0-8.3)
[2021-07-15] MEDS: INSULIN GLARGINE SOLOSTAR 100 UNITS/ML 3 ML PEN SQ SCH (08:13)
[2021-07-15] MEDS: ASPIRIN 81 MG CHEW GT SCH (08:52)
[2021-07-15] MEDS: ZINC SULFATE 220 MG CAPSULE GT SCH (08:52)
[2021-07-15] MEDS: hydroCHLOROthiazide 25 MG TAB PO SCH (08:52)
[2021-07-15] MEDS: LANSOPRAZOLE 30 MG SOLTAB GT SCH (08:52)
[2021-07-15] MEDS ORDERED: PROSOURCE NO CARB 30 ML/PKT GJT SCH (09:00)
--- NOTE | 2021-07-15 09:35 | Electrocardiogram Report ---
Test Reason : Blood Pressure : / mmHG Vent. Rate : 087 BPM Atrial Rate : 087 BPM P-R Int : 174 ms QRS Dur : 088 ms QT Int : 348 ms P-R-T Axes : 018 -55 053 degrees QTc Int : 418 ms Sinus rhythm with occasional Premature ventricular complexes Left axis deviation Inferior infarct (cited on or before 26-NOV-2018) Nonspecific T wave abnormality in the lateral leads Abnormal ECG When compared with ECG of 20-NOV-2020 21:38, No significant change was found Confirmed by Logan Callaway ([id number]) on 07/15/2021 9:34:47 AM Referred [facility]: [facility] Confirmed By:Logan Callaway
--- NOTE | 2021-07-15 14:24 | Hospitalist Progress Note ---
Date of Service July 15, 2021 Assessment & Plan (1) Tracheostomy in place: Plan: - Patient admitted for reported bloody secretions History of tracheostomy, trach collar in place and site clear with no bleeding at time of bedside assessment -Routine trach management -TC 6L -Admission CXR: Decreased inspiratory effort, no active chest disease appreciated. Coag (2) COVID-19: Plan: Patient diagnosed on 07/08/21 - at baseline O2 requirement -Monitor -Isolation precautions (21-day downgrade would be 07/29/2021) -Tylenol PRN -Albuterol PRN Trace leukocytosis on admission, no active disease on CXR of the chest. ABG with chronic metabolic alkalosis. Creatinine normal MRSA screen negative Initially treated with empiric cefepime. Pro-Rohit negative. Antibiotics discontinued. -Metabolic alkalosis, hyponatremia on admission. Patient's family reports seems to be more distressed, and pain with intermittent trach collar leading complaint. Follow clinically. Resumed nutrition today. (3) Chronic indwelling Rod catheter: Plan: No active issues -Routine care q shift (4) Schizophrenia: Plan: Chronic -Continue Valproic acid -Continue Haldol (5) Dementia: Plan: Chronic. Patient is nonverbal, bedbound, not following commands at this time -Frequent orientation (6) Coronary artery disease: Plan: Chronic -Continue ASA (7) GERD (gastroesophageal reflux disease): Plan: Chronic -Continue Prevacid (8) Seizure disorder: Plan: Chronic -Continue Keppra -Continue Valproic acid (9) Diabetes: Plan: Chronic -Continue Lantus 14u qAM -ISS Plan: -Aspiration precautions -Turn and position q 2 hours -F/E/N - Heplock. Monitor electrolytes. TF Prosource -Ppx - SCDs, no chemoppx in setting of reported bleeding -Code - Full Admission and Anticipated Discharge Date Admission Date: July 14, 2021 Subjective Subjective limited by nonverbal status. Opens eyes spontaneously to voice. Does not follow commands. Review of Systems Review of Systems: Subjective limited by nonverbal status Physical Exam Physical Exam: General: Nonverbal, tracheostomy in place. Does not follow commands. HEENT: Tracheostomy in place. Site clear, no blood appreciated. Atraumatic. MM moist. Pupils reactive to light. Opens eyes spontaneously to touch. Pulm: Symmetrical chest rise. No increased work of breathing. No respiratory distress. Cardiac: RRR, -mrg. Radial pulses intact and symmetrical. Abdominal: Nontender, nondistended, soft. BS present. PEG. Results & Data Results & Data ([facility]) Vital Signs (Past 12 Hours) Vital Signs Temp Pulse Pulse Resp BP BP Pulse Ox 07/15/21 13:03 93 H 24 118/89 98 07/15/21 08:54 96 H 24 123/85 94 07/15/21 06:50 36.6 C 99 H 20 135/106 H 94 07/15/21 03:00 86 20 123/75 96 07/15/21 02:30 89 27 H 127/88 95 PG Care Time/CCT Total # of Minutes Spent Total Time Spent with Patient: Total time spent is greater than 50% in coordination of care (as documented) at patient's floor/unit and/or counseling patient: Coding Level of Care Code 75707 Subseq Hosp Care Lvl [address] Z93.0 COVID-19 U07.1 Chronic indwelling Rod catheter Z97.8 Schizophrenia F20.9 Schizophrenia type: unspecified Dementia F03.91 Dementia behavioral disturbance: with behavioral disturbance Dementia type: unspecified type Coronary artery disease I25.10 Associated angina: without angina Coronary Disease-Associated Artery/Lesion type: [place] artery [place] vs. transplanted heart: [place] heart GERD (gastroesophageal reflux disease) K21.9 Esophagitis presence: esophagitis presence not specified Seizure disorder G40.909 Diabetes E11.9; Z79.4 Diabetes mellitus complication status: without complication Diabetes mellitus halfway insulin use: with terminal carman use Diabetes mellitus type: type 2 (1) Diabetes Diabetes mellitus complication status: without complication Diabetes mellitus terminal carman insulin use: with terminal carman use Diabetes mellitus type: type 2 Qualified Code(s): E11.9 - Type 2 diabetes mellitus without complications; Z79.4 - exterminator (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 (2) Coronary artery disease Associated angina: without angina Coronary Disease-Associated Artery/Lesion type: [place] artery [place] vs. transplanted heart: [place] heart Qualified Code(s): I25.10 - Atherosclerotic heart disease of [place] coronary artery without angina pectoris (3) Dementia Dementia behavioral disturbance: with behavioral disturbance Dementia type: unspecified type Qualified Code(s): F03.91 - Unspecified dementia with behavioral disturbance (4) Schizophrenia Schizophrenia type: unspecified Qualified Code(s): F20.9 - Schizophrenia, unspecified (5) GERD (gastroesophageal reflux disease) Esophagitis presence: esophagitis presence not specified Qualified Code(s): K21.9 - Gastro-esophageal reflux disease without esophagitis
[2021-07-15] MEDS: FIBERSOURCE HN 1.2 CAL 1000 ML BAG GT SCH (16:40)
[2021-07-15] MEDS: TUBE FEEDING WATER FLUSH GT SCH ×2 (16:41→18:24)
[2021-07-16] MEDS: CHECK fentaNYL PATCH PLACEMENT SCH ×2 (00:28→07:55)
[2021-07-16] MEDS: TUBE FEEDING WATER FLUSH GT SCH ×5 (00:28→15:26)
[2021-07-16] MEDS: INSULIN ASPART PER UNIT SC SCH ×3 (00:29→12:19)
[2021-07-16] MEDS: ASPIRIN 81 MG CHEW GT SCH (07:58)
[2021-07-16 07:59] LABS: Basophils # (auto) 0.04 K/uL (0-0.2); Basophils % (auto) 0.4 %; Eosinophils # (auto) 0.15 K/uL (0-0.5); Eosinophils % (auto) 1.5 %; Hematocrit (blood only) 42.4 % (42-52); Hemoglobin 13.2 g/dL (14.0-18.0); Immature Granulocytes # (auto) 0.15 K/uL (0.00-0.02); Immature Granulocytes % (auto) 1.5 %; Lymphocytes # (auto) 1.94 K/uL (1.2-3.4); Lymphocytes % (auto) 19.5 %; Mean Corpuscular Hemoglobin 27.7 pg (25-34); Mean Corpuscular Hgb Conc 31.1 g/dL (32-36); Mean Corpuscular Volume 89.1 fL (80-100); Mean Platelet Volume 9.8 fL (7.4-10.4); Monocytes # (auto) 0.89 K/uL (0.11-0.59); Neutrophils # (auto) 6.77 K/uL (1.4-6.5); Neutrophils % (auto) 68.1 %; Platelet Count 251 K/uL (130-400); RDW Coefficient of Variation 16.3 % (11.5-14.5); RDW Standard Deviation 53.2 fL (36.4-46.3); Red Blood Count 4.76 M/uL (4.7-6.1); White Blood Count 9.94 K/uL (4.8-10.8)
[2021-07-16] MEDS: hydroCHLOROthiazide 25 MG TAB PO SCH (07:59)
[2021-07-16] MEDS: ZINC SULFATE 220 MG CAPSULE GT SCH (07:59)
[2021-07-16] MEDS: VALPROIC ACID SOLN 500 MG/10 ML UDC GT SCH (07:59)
[2021-07-16] MEDS: HALOPERIDOL 2 MG/1 ML UDP GT SCH (07:59)
[2021-07-16] MEDS: levETIRAcetam ORAL SOLN 100MG/ML GT SCH (07:59)
[2021-07-16] MEDS: LANSOPRAZOLE 30 MG SOLTAB GT SCH (07:59)
[2021-07-16 08:25] LABS: BUN Creatinine Ratio 33.3 (10-20); Calcium 9.1 mg/dl (8.5-10.1); Est GFR (African American) 106.2 ml/min; Est GFR (Non-African American) 91.6 ml/min; Potassium 3.5 mmol/L (3.5-5.1)
[2021-07-16] MEDS: guaiFENesin SUGAR FREE 100 MG/5 ML UDC GT SCH (08:43)
[2021-07-16] MEDS: INSULIN GLARGINE SOLOSTAR 100 UNITS/ML 3 ML PEN SQ SCH (09:00)
--- NOTE | 2021-07-16 11:04 | Discharge Summary ---
Date of Service July 16, 2021 Admission HPI Per Admitting Provider 70yo male with prior CVA s/p tracheostomy, PEG tube, nonverbal presenting [place] with report of bleeding from tracheostomy site. Covid+ 8 days ago. He is vaccinated and has received a booster Patient is unable to provide history Admission Exam Per Admitting Provider General: patient resting comfortably, NAD, nonverbal Skin: warm, dry, intact, no rashes or lesions HEENT: NC/AT, PERRL,anicteric sclera, conjunctiva without injection, external ear normal to inspection and nontender, nares patent, moist mucus membranes, dentition intact, no oropharyngeal lesions, neck supple, trachea midline, no LAD, no thyromegaly, no JVD, trach collar in place with 6L O2 by TC, site appears clear with no bleeding Heart: +S1/S2, regular, no m/r/g Lungs: equal air entry bilaterally, no rales/rhonchi/wheezes Abd: +BS, soft, NT/ND, no masses/organomegaly/ascites, umbilical hernia present - reducible Ext: warm, 2+ pulses in UE/LE bilaterally, no clubbing/cyanosis or edema Neuro: nonverbal, not following commands Principal Diagnosis Bloody Tracheostomy Secretions Discharge Exam General: Nonverbal, tracheostomy in place. Does not follow commands. Opens eyes spontaneously, does not blink on command. HEENT: Tracheostomy in place, atraumatic, no blood, lumen intact, no visible erosion. Site clear, no blood appreciated. Atraumatic. MM moist. Pupils reactive to light. Opens eyes spontaneously to touch. Pulm: Symmetrical chest rise. No increased work of breathing. No respiratory distress. Cardiac: RRR, -mrg. Radial pulses intact and symmetrical. Abdominal: Nontender, nondistended, soft. BS present. PEG. Ext: L anterior thigh with grade 1 ulcer where hand rests, covered in dressing, no erythema/warmth/purulence/bleeding. Discharge Data Allergies Allergy/AdvReac Type Severity Reaction Status Date / Time No Known Allergies Allergy Verified 07/14/21 20:37 Consultations 07/14/21 19:31 ED Decision to Admit Stat Hospital Course (1) Tracheostomy in place: Mr. Errol Hinojosa was seen in the hospital for bloody secretions and concern for general unwellness. On arrival to the emergency department he was afebrile and hemodynamically stable. Routine tracheostomy care was performed, no ulceratio n/trauma was appreciated. The tube was patent. He was observed for 24 hours with routine tracheostomy care and suctioning performed, no additional bloody secretions were appreciated. Malposition, erosion, and stenosis were not appreciated during admission. His airway remained and he was with normal work of breathing and good air movement. A procalcitonin, a marker of potential bacterial infection/pneumonia, was checked; this was normal indicating that there was not a bacterial infection present. A chest x-ray was performed, which did not show any acute findings consistent with pneumonia, lung disease, or fluid/infiltrate in the lungs or airways. Blood work showed normal kidney function and normal potassium levels during admission. Sodium levels were slightly low, although at normal baseline from prior levels. A nutrition consult was obtained to optimize nutritional formula. There were no concerning electrolyte abnormalities during admission. To Do As Outpatient: 1. Routine PCP followup within 1 week 2. Routine tracheostomy care and evaluation. Regular assessment of lumen patency and condition, otherwise routine tracheostomy changes recommended at 30-90 day intervals Nutrition was consulted during admission to optimize nutrition. During admission source HN 1.2 at 55 mL/hour to provide 1584 kcals, 71 g of protein, 1067 mL free water, and average approximately 9g/HR CHO. PEG was flushed with 100 cc of free water every 4 hours for 1667 mL total fluid. Patient may resume his outpatient PEG tube feeding regimen discharge. Tracheostomy w/ Reports of Blood - Patient admitted for reported bloody secretions History of tracheostomy, trach collar in place and site clear with no bleeding at time of bedside assessment. No visible ulcertaions/trauma. -Routine trach management. Suctioning performed 2x overnight prior to discharge, no purulent sputum or blood. -Admission CXR: Decreased inspiratory effort, no active chest disease appreciated. (2) COVID-19: Patient reportedly diagnosed on 07/08/21 - at baseline O2 requirement -Monitor -Isolation precautions (21-day downgrade would be 07/29/2021) -Tylenol PRN -Albuterol PRN Trace leukocytosis on admission, no active disease on CXR of the chest. ABG with chronic metabolic alkalosis. Creatinine normal MRSA screen negative Initially treated with empiric cefepime. Pro-Rohit negative. Antibiotics discontinued. Remained clinically stable. -Metabolic alkalosis, mild hyponatremia on admission. Patient's family reports seems to be more distressed, and pain with intermittent trach collar leading complaint. Followed clinically, remained stable (3) Chronic indwelling Rod catheter: No active issues (4) Schizophrenia: Chronic -Continue Valproic acid -Continue Haldol (5) Dementia: Chronic. Patient is nonverbal, bedbound,does not follow commands - Opens eyes, is able to track. (6) Coronary artery disease: Chronic -Continue ASA (7) GERD (gastroesophageal reflux disease): Chronic -Continue Prevacid (8) Seizure disorder: Chronic -Continue Keppra -Continue Valproic acid (9) Diabetes: Chronic -Continue Lantus 14u qAM -ISS -Aspiration precautions -Turn and position q 2 hours -F/E/N - [place]ock. Monitor electrolytes. TF Prosource -Ppx - SCDs, no chemoppx in setting of reported bleeding. No signs of DVT during admit. Total Time Total Time Spent Total Time Spent (In Minutes): Total time spent day of discharge including documentation, review of labs and images, direct patient care, and coordination of care 35 minutes Discharge Plan Discharge Items Patient Disposition: Transfer [facility] Reason For Visit: BLOODY TRACHEOSTOMY SECRETIONS Discharge Diagnosis: Bloody Tracheostomy Secretions Condition on Discharge: Fair Activity: Resume your previous activity Non-emergency contact: Primary Care Provider Call non-emergency contact if: you have any medication questions, your symptoms worsen and you have a fever Follow-up/Referrals: Mango Samuels [Primary Care Provider] - Diet: Other - See Diet Comment Addtl Attending Provider Instructions: Mr. Errol Hinojosa was seen in the hospital for bloody secretions and concern for general unwellness. On arrival to the emergency department he was afebrile and hemodynamically stable. Routine tracheostomy care was performed, no ulceration/trauma was appreciated. The tube was patent. He was observed for 24 hours with routine tracheostomy care and suctioning performed, no additional bloody secretions were appreciated. Malposition, erosion, and stenosis were not appreciated during admission. His airway remained and he was with normal work of breathing and good air movement. A procalcitonin, a marker of potential bacterial infection/pneumonia, was checked; this was normal indicating that there was not a bacterial infection present. A chest x-ray was performed, which did not show any acute findings consistent with pneumonia, lung disease, or fluid/infiltrate in the lungs or airways. Blood work showed normal kidney function and normal potassium levels during admission. Sodium levels were slightly low, although at normal baseline from prior levels. A nutrition consult was obtained to optimize nutritional formula. There were no concerning electrolyte abnormalities during admission. Mr. Errol Hinojosa was recommended for discharge back to long term with follow- up to the facility physician. He should have a re-evaluation within 1 week. No new medications have been prescribed. Nutrition was consulted during admission to optimize nutrition. During admission source HN 1.2 at 55 mL/hour to provide 1584 kcals, 71 g of protein, 1067 mL free water, and average approximately 9g/HR CHO. PEG was flushed with 100 cc of free water every 4 hours for 1667 mL total fluid. Patient may resume his outpatient PEG tube feeding regimen discharge. Mr. Errol Hinojosa's tracheostomy tube should be evaluated and cleaned as needed on a regular daily basis, have regular assessment of lumen patency, and routine change every 30 to 90 days. If Mr. Errol Hinojosa develops any new or worsening symptoms including fever, chills, sweats, chest pain, chest pressure, difficulty breathing, uncontrolled nausea/vomiting, rash, wheezing, passing out or nearly passing out, bleeding, black/bloody bowel movements, or other new or concerning symptoms please call the facility physician, have 911 contacted for re-evaluation in the emergency department if you are very concerned. Pending Studies at Discharge: No Stand-Alone Forms: My [facility] Skilled Items Patient informed of condition?: Yes DNR: No Discharge Level of Care: Skilled Communicable Disease: No Discharge Prognosis: Stable Lines: None Urinary Catheter: No Medications and DC Order Prescriptions: Continued aspirin 81 mg Tablet,Chewable 81 mg feeding tube DAILY Qty: 90 RF: 0 acetaminophen [Tylenol] 325 mg Tablet 650 mg feeding tube Q6 PRN (Reason: Fever Or Pain) RF: 0 guaifenesin 100 mg/5 mL Liquid 200 mg feeding tube BID Qty: 0 RF: 0 ascorbic acid (vitamin C) [Vitamin C] 500 mg Tablet 500 mg feeding tube QAM RF: 0 ferrous sulfate 300 mg (60 mg iron)/5 mL Liquid 300 mg feeding tube BID Qty: 0 RF: 0 protein supplement Liquid 30 ea feeding tube BID Qty: 0 RF: 0 valproic acid (as sodium salt) 500 mg/10 mL (10 mL) Solution 500 mg feeding tube BID Qty: 0 RF: 0 haloperidol lactate 2 mg/mL Concentrate 2 mg feeding tube Q12H RF: 0 levetiracetam [Keppra] 100 mg/mL Solution 750 mg feeding tube BID RF: 0 esomeprazole magnesium [address] For Susp In Packet 40 mg G-tube QAM RF: 0 polyethylene glycol 3350 [Miralax] 17 gram powder in packet 17 g feeding tube QAM PRN (Reason: Constipation) RF: 0 hydrochlorothiazide 12.5 mg Tablet 12.5 mg PO DAILY RF: 0 Lantus Solostar U-100 Insulin 100 unit/mL (3 mL) insulin pen 14 unit subcut QAM RF: 0 tramadol 50 mg Tablet 50 mg feeding tube Q4 PRN (Reason: Pain) Qty: 30 RF: 0 insulin lispro 100 unit/mL Solution 1 sliding scale dose SUBCUT USEASDIRECTD Qty: 1 RF: 0 fentanyl 12 mcg/hr Patch 72 Hour 12 mcg transdermal Q72H Qty: 10 RF: 0 Floranex 1 million cell Tablet,Chewable 1 tab feeding tube QID RF: 0 cholecalciferol (vitamin D3) 125 mcg/mL (5,000 unit/mL) Drops 125 mcg feeding tube DAILY RF: 0 zinc 50 mg Tablet 50 mg PO DAILY RF: 0 enoxaparin 40 mg/0.4 mL syringe 40 mg subcut DAILY RF: 0 cholecalciferol (vitamin D3) [Vitamin D3] 125 mcg (5,000 unit) Tablet 125 mcg PO DAILY RF: 0 Discharge Orders: Discharge Order (Routine); Ordered 07/16/21 Ordered By: Miky Lee Admission Data Admit Date/Time: 07/14/21 20:51 Attending Provider: Miky Lee Admit Provider: Lavinia Menard Primary Care Provider: Mango Samuels Other Providers: Lavinia Menard ; Dawson,Care ; Abril, Shaylee Level of Care Code D/C DAY MANAGEMENT >30 MINS Diagnoses Tracheostomy in place Z93.0 COVID-19 U07.1 Chronic indwelling Rod catheter Z97.8 Schizophrenia F20.9 Schizophrenia type: unspecified Dementia F03.91 Dementia type: unspecified type Dementia behavioral disturbance: with behavioral disturbance Coronary artery disease I25.10 Coronary Disease-Associated Artery/Lesion type: [place] artery [place] vs. transplanted heart: [place] heart Associated angina: without angina GERD (gastroesophageal reflux disease) K21.9 Esophagitis presence: esophagitis presence not specified Seizure disorder G40.909 Diabetes E11.9; Z79.4 Diabetes mellitus type: type 2 Diabetes mellitus [facility]iary insulin use: with moth exterminator use Diabetes mellitus complication status: without complication
[2021-07-16 11:51] VITALS: PULSE 81; TEMP 97.9; O2SAT 94
[2021-07-16 14:41] VITALS: BP 102/68
[2021-07-16] MEDS: FIBERSOURCE HN 1.2 CAL 1000 ML BAG GT SCH (15:26)
[2021-07-17] MEDS ORDERED: fentaNYL 12 MCG/HR TDSY TD SCH (09:00)
== END 2021-07-16 15:27 ==
LOC: EDINP 16:27 → ED 16:27 → SUATTDRO 20:51 → 2S 07-15 01:15